=== PATIENT | male | born 1945 | race Caucasian/White ===

== ENCOUNTER 2019-12-29 16:25 | Inpatient (IN) ==
--- OUTSIDE RECORDS SUMMARY | 2019-12-29 16:27 | External Medical Summary | Continuity of Care Document ---
:1945 Author Name Harmeet Ott Address Unavailable Unavailable , Care Team Providers Name Role Phone Juliano Ott Unavailable [email or web address] PCP, UNKNOWN Unavailable Unavailable Problems Active medical history not documented Allergies and Adverse Reactions Allergy history not documented Medications Medications not documented Procedures Procedures not documented Immunizations Immunizations not documented Plan of Treatment Planned Observations Planned Goals not documented Results No Known Results Results not documented
[2019-12-29] MEDS ORDERED: SODIUM CHLORIDE 0.9% 1000ML 1,000 ML IV ONE (17:33)
[2019-12-29] MEDS ORDERED: ACETAMINOPHEN 1,000 MG/100 ML VIAL IV STA (17:34)
--- NOTE | 2019-12-29 17:53 | XRay Report ---
XR chest 1V portable CLINICAL HISTORY: weakness COMPARISON STUDY: 05/05/2018 FINDINGS: The cardiac and mediastinal contours remain stable. There is a left subclavian dual-chamber central venous pacemaker. There is no failure. There is no focal pulmonary consolidation. There are no pleural effusions. There is borderline elevation of the right hemidiaphragm.[ IMPRESSION: No active disease in the chest. ACT 112: Negative or not required by law. Electronically signed by: Bethel Cardoso M.D. 12/29/2019 5:51 PM
[2019-12-29 17:54] LABS: Basophils # (auto) 0.05 K/uL (0-0.2); Basophils % (auto) 0.4 %; Eosinophils # (auto) 0.19 K/uL (0-0.5); Eosinophils % (auto) 1.7 %; Hematocrit (blood only) 44.7 % (42-52); Hemoglobin 14.9 g/dL (14.0-18.0); Immature Granulocytes # (auto) 0.03 K/uL (0.00-0.02); Immature Granulocytes % (auto) 0.3 %; Lymphocytes # (auto) 2.21 K/uL (1.2-3.4); Lymphocytes % (auto) 19.8 %; Mean Corpuscular Hemoglobin 31.9 pg (25-34); Mean Corpuscular Hgb Conc 33.3 g/dL (32-36); Mean Corpuscular Volume 95.7 fL (80-100); Monocytes # (auto) 1.05 K/uL (0.11-0.59); Monocytes % (auto) 9.4 %; Neutrophils # (auto) 7.64 K/uL (1.4-6.5); Neutrophils % (auto) 68.4 %; Platelet Count 182 K/uL (130-400); RDW Coefficient of Variation 13.8 % (11.5-14.5); RDW Standard Deviation 47.8 fL (36.4-46.3); Red Blood Count 4.67 M/uL (4.7-6.1); White Blood Count 11.17 K/uL (4.8-10.8)
[2019-12-29 18:14] LABS: Albumin Level 3.2 gm/dl (3.4-5.0); Calcium 8.8 mg/dl (8.5-10.1); Creatinine Clr Calc Pharmacy 35.5 ml/min; Est GFR (African American) 30.1; Potassium 3.2 mmol/L (3.5-5.1)
[2019-12-29] MEDS ORDERED: POTASSIUM CHLORIDE 20 MEQ TABCR PO STA (18:15)
[2019-12-29 18:25] LABS: Albumin Globulin Ratio 0.7 (0.9-2); Bilirubin,Total 0.3 mg/dl (0.2-1); Creatine Kinase MB 2.4 ng/ml (0.5-3.6); Globulin 4.7 gm/dl (2.5-4.0); Thyroid Stimulating Hormone 1.84 uIu/ml (0.300-4.500); Total Protein 7.9 gm/dl (6.4-8.2); Troponin I 0.094 ng/ml (0-0.045)
--- NOTE | 2019-12-29 18:30 | CT Scan Report ---
CT SCAN OF THE ABDOMEN AND PELVIS WITHOUT CONTRAST CLINICAL HISTORY: Acute renal insufficiency WEAKNESS COMPARISON STUDY: Chest x-ray dated 12/29/2019 TECHNIQUE: CT scan of the abdomen and pelvis was performed from the lung bases to the proximal femurs . Images are reviewed in the axial, sagittal, and coronal planes. IV contrast was not administered fo r this examination. A dose lowering technique was utilized adhering to the principles of ALARA. CT DOSE: 1462.13 mGy.cm FINDINGS: Lower chest: There are coronary artery calcifications present. There is elevation of the right hemidi aphragm. There are no pleural effusions. There is linear atelectasis. Liver: The unenhanced liver is normal in size, contour, and attenuation. There is no intrahepatic bandar iary ductal dilatation. Gallbladder: Cholelithiasis. The common bile duct is mildly dilated measuring 8 mm Spleen: Normal in size and attenuation. Pancreas: There are extensive pancreatic calcifications, indicative of chronic pancreatitis. Adrenal glands: There is minor low density adrenal gland thickening Kidneys: There is no hydronephrosis. No renal, ureteral, or bladder calculi are visualized. Bowel: There are no transition zones indicate bowel obstruction. The appendix appears normal. There i s no acute diverticulitis. There is moderate stool within the colon. Peritoneum: There is no intraperitoneal free air or abdominal ascites. Vasculature: There is no evidence for abdominal aortic aneurysm. There is dense calcification at the level of the left renal artery origin. There is dense calcification within the proximal left superfic ial femoral artery. Adenopathy: None. Pelvic viscera: There is mild prostatomegaly Skeletal structures: No destructive osseous lesions are seen. IMPRESSION: 1. No evidence of bowel obstruction. No evidence of free air 2. Cholelithiasis. No evidence of significant gallbladder distention. Mildly dilated common bile duct 3. Extensive pancreatic calcifications consistent with chronic pancreatitis 4. Normal appendix. No evidence of acute diverticulitis 5. No evidence of hydronephrosis. No renal, ureteral, or bladder calculi identified 6. Mild prostatomegaly 7. No evidence of abdominal aortic aneurysm. Moderately extensive atherosclerotic vascular calcificat ion. ACT 112: Negative or not required by law. Electronically signed by: Bethel Cardoso M.D. 12/29/2019 6:29 PM
--- NOTE | 2019-12-29 20:19 | History & Physical Report ---
Date of Service December 29, 2019 Assessment & Plan (1) NSTEMI, initial episode of care: Troponin elevated at 0.094, with no acute EKG findings/hypertension- The patient will be admitted to telemetry for serial cardiac enzymes, serial EKG's, cardiac rhythm monitoring and a 2-D echocardiogram with Dopplers. Likely type II IL. Laboratories were for performed in the ED tonight based on report of abnormal laboratories from the [facility]. Patient has no symptoms of chest pain or shortness of breath, however, his activity level severely limited due to lower extremity weakness and ambulatory dysfunction, that he reports is associated with Agent Anderson poisoning. Consult cardiology. Present on Admission?: Yes (2) Peripheral neuropathy: (3) Hypothyroidism (acquired): Continue levothyroxine sodium 88 mcg p.o. daily Present on Admission?: Yes (4) Hyperlipidemia LDL goal <70: Continue atorvastatin 40 mg p.o. in the evening. Check a fasting lipid panel in the a.m. Present on Admission?: Yes (5) Insulin-requiring or dependent type II diabetes mellitus: Continue Lantus insulin 30 units subcu at bedtime. Patient is also on cinnamon bark and cranberry in the outpatient setting. Hold glipizide 5 mg p.o. twice daily. Placed on Accu-Cheks before meals and at bedtime with NovoLog coverage per scale. Check hemoglobin A1c in the a.m. Present on Admission?: Yes (6) Hypertension: See above Present on Admission?: Yes (7) Pancreatic insufficiency: Chronic pancreatitis/pancreatic insufficiency- Continue pancreatic enzymes Creon, 1 capsule p.o. [address] times daily with meals. CT of abdomen pelvis notes calcifications suggestive of chronic pancreatitis, with unknown etiology. Present on Admission?: Yes (8) Chronic pancreatitis: See above Present on Admission?: Yes (9) Morbid obesity: Noted. Likely multifactorial being caused by his medical problems and further causing his medical problems. Present on Admission?: Yes (10) Agent Anderson [facility]: [facility] extremity weakness, neuropathy and ambulatory dysfunction are reportedly attributed. Present on Admission?: Yes (11) Acute kidney injury superimposed on chronic kidney disease: Creatinine 2.40 upon admission, with range 1.74-2.18. For now, hold HCTZ and rehydrate gently with normal saline. Repeat laboratories in a.m. Present on Admission?: Yes (12) Hypokalemia due to excessive renal loss of potassium: Patient given Klor-Con 40 mEq p.o. in the ED. We will hold HCTZ. Present on Admission?: Yes (13) History of permanent cardiac pacemaker placement: EKG shows AV dual pacing. Present on Admission?: Yes (14) GERD (gastroesophageal reflux disease): Continue pantoprazole 40 mg p.o. daily Present on Admission?: Yes History of Present Illness Chief Complaint: The patient is referred to the emergency department by his physician at the [facility], due to the presence of abnormal routine laboratories that were performed earlier in the day. Primary Care Provider: NO PCP The patient is a 74-year-old male with a past medical history including agent orange, hyperlipidemia, peripheral neuropathy, diabetes mellitus, hypertension, hypothyroidism, pancreatic insufficiency, GERD and ambulatory dysfunction due to lower extremity weakness. Earlier in the day, he had gone to the [facility] in [place] to have routine laboratories performed in anticipation of his routine visit next week, but received a phone call at home after labs had been processed at the [facility], that his laboratories were abnormal and he was to report immediately to the emergency department. He received no specific word otherwise as to the exact nature of the abnormality, and we do not have access to the information at this time and night. He has no specific complaints otherwise other than that he felt a bit lightheaded and dizzy upon arrival to the emergency department, as he is diabetic and had not not eaten all day. Allergies Allergy/AdvReac Type Severity Reaction Status Date / Time ASPIRIN (IN DOSES LARGER AdvReac Intermediate N/V Uncoded 12/29/19 18:35 THAN 81MG) Home Medications Home Medications Medication Instructions Recorded Confirmed Type aspirin 81 mg PO QAM #0 05/22/15 12/29/19 History gabapentin 300 mg PO BID #0 05/22/15 12/29/19 History grape seed extract 100 mg PO QPM #0 05/22/15 12/29/19 History levothyroxine 88 mcg PO QAM #0 05/22/15 12/29/19 History wlojnt-yyyrkejz-nmvonqt [Creon] 1 cap PO TIDM #0 05/22/15 12/29/19 History multivitamin with minerals [Men's 1 tab PO DAILY #0 05/22/15 12/29/19 History One Daily] pantoprazole 40 mg PO QAM #0 05/22/15 12/29/19 History atorvastatin [Lipitor] 40 mg PO HS #0 tab 05/05/18 12/29/19 History cinnamon bark [Cinnamon] 1,000 mg PO QPM #0 05/05/18 12/29/19 History cranberry 4,200 mg PO HS #0 05/05/18 12/29/19 History glucosamine HCl 1,500 mg PO BID #0 05/05/18 12/29/19 History hydrochlorothiazide 25 mg PO QAM #0 tab 05/05/18 12/29/19 History insulin glargine [Lantus Solostar 30 unit SUBCUT HS #0 pen 05/05/18 12/29/19 History U-100 Insulin] magnesium oxide 500 mg PO QAM #0 05/05/18 12/29/19 History glipizide 5 mg PO BID 12/29/19 12/29/19 History metoprolol tartrate 25 mg PO BID 12/29/19 12/29/19 History Past Med/Surg History Medical History History of pacemaker Surgical History History of permanent cardiac pacemaker placement Family History Other Family history non-contributory Social History Preferred Language: Indian Communication Ability: Effective Community Organizer Required: No Beliefs That Will Affect Care: None Current Living Situation: Spouse Feels Safe at Home: Yes Smoking Status: Current every day smoker Tobacco Type: cigarettes ; Cigarettes Per Day: 20 ; Do You Dip or Chew Tobacco: No ; Hx Alcohol Use: No Hx Substance Use: No Review of Systems Review of Systems: The patient denies chest pain, palpitations, shortness of breath, dyspnea on exertion, cough, sore throat, fevers, chills, sweats, nausea, vomiting, diarrhea , constipation, abdominal pain, pelvic pain, blood in urine or stool, dysuria, urinary frequency or urgency, lightheadedness, dizziness, headache, memory loss, loss of consciousness, rash, abnormal bruising or bleeding, focal or generalized weakness, numbness or tingling in arms, back or neck pain, or night sweats. The review of systems is otherwise negative other than for that already noted above, and at least 10 systems have been reviewed. Physical Exam Physical Exam: The patient is awake, alert and oriented 3, well developed and well nourished, normocephalic and atraumatic, lying in bed and in no acute distress. HEENT--PERRL, EOMI, mucous membranes and oropharynx dry. Neck--supple. No JVD. No bruits. Thyroid normal, trachea midline, no adenopathy. Heart--normal S1 and S2. No murmurs, rubs or gallops. Lungs--clear bilaterally, no respiratory distress, no accessory muscle use. Abdomen--normal bowel sounds and soft. Nontender. Nondistended. Morbidly obese. Extremities--no cyanosis or clubbing. No edema. There are good distal pulses b/l. Dermatologic--normal skin turgor, normal color, no abnormal lymph nodes, no rash. Neurologic--cranial nerves II through XII grossly intact. Rheumatologic--normal range of motion. Psychiatric--normal affect. Results & Data Vital Signs (Past 12 Hours) Vital Signs Temp Pulse Pulse Resp BP Pulse Ox 12/29/19 18:32 67 17 96 12/29/19 17:32 97 12/29/19 16:28 98.2 F 61 20 100/65 96 Laboratory Results Laboratory Results WBC 11.17 K/uL (4.8-10.8) H 12/29/19 17:20 RBC 4.67 M/uL (4.7-6.1) L 12/29/19 17:20 Hgb 14.9 g/dL (14.0-18.0) 12/29/19 17:20 Hct 44.7 % (42-52) 12/29/19 17:20 MCV 95.7 fL (80-100) 12/29/19 17:20 MCH 31.9 pg (25-34) 12/29/19:20 MCHC 33.3 g/dL (32-36) 12/29/19 17:20 RDW Std Deviation 47.8 fL (36.4-46.3) H 12/29/19 17:20 RDW Coeff of Hilda 13.8 % (11.5-14.5) 12/29/19 17:20 Plt Count 182 K/uL (130-400) 12/29/19 17:20 MPV 11.0 fL (7.4-10.4) H 12/29/19 17:20 Immature Gran % (Auto) 0.3 % 12/29/19 17:20 Neut % (Auto) 68.4 % 12/29/19 17:20 Lymph % (Auto) 19.8 % 12/29/19 17:20 [place] % (Auto) 9.4 % 12/29/19 17:20 Eos % (Auto) 1.7 % 12/29/19 17:20 Baso % (Auto) 0.4 % 12/29/19 17:20 Immature Gran # (Auto) 0.03 K/uL (0.00-0.02) H 12/29/19 17:20 Neut # (Auto) 7.64 K/uL (1.4-6.5) H 12/29/19 17:20 Lymph # (Auto) 2.21 K/uL (1.2-3.4) 12/29/19 17:20 Henderson # (Auto) 1.05 K/uL (0.11-0.59) H 12/29/19 17:20 Eos # (Auto) 0.19 K/uL (0-0.5) 12/29/19 17:20 Baso # (Auto) 0.05 K/uL (0-0.2) 12/29/19 17:20 Sodium 136 mmol/L (136-145) 12/29/19 17:20 Potassium 3.2 mmol/L (3.5-5.1) L 12/29/19 17:20 Chloride 101 mmol/L (98-107) 12/29/19 17:20 Carbon Dioxide 26 mmol/L (21-32) 12/29/19 17:20 Anion Gap 8.0 (3-11) 12/29/19 17:20 BUN 53 mg/dl (7-18) H 12/29/19 17:20 Creatinine 2.40 mg/dl (0.6-1.4) H 12/29/19 17:20 Est Cr Clr Drug Dosing 35.5 ml/min 12/29/19 17:20 Est GFR ( Amer) 30.1 12/29/19 17:20 Est GFR (Non-Af Amer) 26.0 12/29/19 17:20 BUN/Creatinine Ratio 22.0 (10-20) H 12/29/19 17:20 Glucose 253 mg/dl (70-99) H 12/29/19 17:20 POC Glucose 236 mg/dl (70-99) H 12/30/19 02:03 Calcium 8.8 mg/dl (8.5-10.1) 12/29/19 17:20 Total Bilirubin 0.3 mg/dl (0.2-1) 12/29/19 17:20 AST 26 U/L (15-37) 12/29/19 17:20 ALT 24 U/L (12-78) 12/29/19 17:20 Alkaline Phosphatase 125 U/L (45-117) H 12/29/19 17:20 Total Creatine Kinase 100 U/L (39-308) 12/29/19 17:20 CK-MB (CK-2) 2.4 ng/ml (0.5-3.6) 12/29/19 17:20 CK/CKMB % Calc 2.4 (0-3.0) 12/29/19 17:20 Troponin I 0.092 ng/ml (0-0.045) H* 12/29/19 21:52 Total Protein 7.9 gm/dl (6.4-8.2) 12/29/19 17:20 Albumin 3.2 gm/dl (3.4-5.0) L 12/29/19 17:20 Globulin 4.7 gm/dl (2.5-4.0) H 12/29/19 17:20 Albumin/Globulin Ratio 0.7 (0.9-2) L 12/29/19 17:20 TSH 1.840 uIu/ml (0.300-4.500) 12/29/19 17:20 Specimen Hemolysis 12/29/19 17:20 Urine Color Yellow 12/30/19 00:01 Urine Appearance Clear (Clear) 12/30/19 00:01 Urine pH 5.5 (4.5-7.5) 12/30/19 00:01 Ur Specific [place] 1.014 (1.000-1.030) 12/30/19 00:01 Urine Protein Trace (Negative) H 12/30/19 00:01 Urine Glucose (UA) 1+ (Negative) H 12/30/19 00:01 Urine Ketones Negative (Negative) 12/30/19 00:01 Urine Blood Trace (Negative) H 12/30/19 00:01 Urine Nitrite Negative (Negative) 12/30/19 00:01 Urine Bilirubin Negative (Negative) 12/30/19 00:01 Urine Urobilinogen Negative (Negative) 12/30/19 00:01 Ur Leukocyte Esterase Negative (Negative) 12/30/19 00:01 Urine WBC (Auto) 1-5 /hpf (0-5) 12/30/19 00:01 Urine RBC (Auto) 0-4 /hpf (0-4) 12/30/19 00:01 U Hyaline Cast (Auto) 1-5 /lpf (0-5) 12/30/19 00:01 U Epithel Cells (Auto) 20-30 /lpf (0-5) H 12/30/19 00:01 Urine Bacteria (Auto) Negative (Negative) 12/30/19 00:01 Diagnostic Findings [place], [place] [phone] XRay Report Patient: ALFREDO RODAS DAdmit Date: 12/29/19 MR#: [id number]: [address] Acct ID:[id number]: Date: 1945City Zip: [place] [address] Age: 74Location: ED Sex: M Room/Bed: Att Phy:Diagnosis: ABNORMAL LABS [facility] Phy: PCP,NOService Date: 12/29/19 Fam Phy:Interpreting Phy: Bethel Cardoso MD Admit Phy: Ordering Phy: Omkar Estrada MD cc: ~ XR chest 1V portable CLINICAL HISTORY: weakness COMPARISON STUDY: 05/05/2018 FINDINGS: The cardiac and mediastinal contours remain stable. There is a left subclavian dual-chamber central venous pacemaker. There is no failure. There is no focal pulmonary consolidation. There are no pleural effusions. There is borderline elevation of the right hemidiaphragm.[ IMPRESSION: No active disease in the chest. ACT 112: Negative or not required by law. Electronically signed by: Bethel Cardoso M.D. 12/29/2019 5:51 PM Dictated: 12/29/191750 Transcribed: 12/29/191750 [place], [place] [phone] CT Scan Report Patient: ALFREDO RODAS Date: 12/29/19 MR#: [id number]: [id number] Acct ID:[id number]: Date: 1945City Zip: [place] [address] Age: 74Location: ED Sex: M Room/Bed: Att Phy:Diagnosis: ABNORMAL LABS - [facility] Phy: PCP,NOService Date: 12/29/19 Fam Phy:Interpreting Phy: Bethel Cardoso MD Admit Phy: Ordering Phy: Omkar Estrada MD cc: ~ CT SCAN OF THE ABDOMEN AND PELVIS WITHOUT CONTRAST CLINICAL HISTORY: Acute renal insufficiency WEAKNESS COMPARISON STUDY: Chest x-ray dated 12/29/2019 TECHNIQUE: CT scan of the abdomen and pelvis was performed from the lung bases to the proximal femurs. Images are reviewed in the axial, sagittal, and coronal planes. IV contrast was not administered for this examination. A dose lowering technique was utilized adhering to the principles of ALARA. CT DOSE: 1462.13 mGy.cm FINDINGS: Lower chest: There are coronary artery calcifications present. There is elevation of the right hemidiaphragm. There are no pleural effusions. There is linear atelectasis. Liver: The unenhanced liver is normal in size, contour, and attenuation. There is no intrahepatic biliary ductal dilatation. Gallbladder: Cholelithiasis. The common bile duct is mildly dilated measuring 8 mm Spleen: Normal in size and attenuation. Pancreas: There are extensive pancreatic calcifications, indicative of chronic pancreatitis. Adrenal glands: There is minor low density adrenal gland thickening Kidneys: There is no hydronephrosis. No renal, ureteral, or bladder calculi are visualized. Bowel: There are no transition zones indicate bowel obstruction. The appendix appears normal. There is no acute diverticulitis. There is moderate stool within the colon. Peritoneum: There is no intraperitoneal free air or abdominal ascites. Vasculature: There is no evidence for abdominal aortic aneurysm. There is dense calcification at the level of the left renal artery origin. There is dense calcification within the proximal left superficial femoral artery. Adenopathy: None. Pelvic viscera: There is mild prostatomegaly Skeletal structures: No destructive osseous lesions are seen. IMPRESSION: 1. No evidence of bowel obstruction. No evidence of free air 2. Cholelithiasis. No evidence of significant gallbladder distention. Mildly dilated common bile duct 3. Extensive pancreatic calcifications consistent with chronic pancreatitis 4. Normal appendix. No evidence of acute diverticulitis 5. No evidence of hydronephrosis. No renal, ureteral, or bladder calculi identi fied 6. Mild prostatomegaly 7. No evidence of abdominal aortic aneurysm. Moderately extensive atherosclerotic vascular calcification. ACT 112: Negative or not required by law. Electronically signed by: Bethel Cardoso M.D. 12/29/2019 6:29 PM Dictated: 12/29/191822 Transcribed: 12/29/191822 Code Status & VTE Plan Code Status Full code VTE Prophylaxis Plan VTE Prophylaxis will be ordered: Yes PG Care Time/CCT Total # of Minutes Spent Total Time Spent with Patient: Total time spent is greater than 50% in coordination of care (as documented) at patient's floor/unit and/or counseling patient: Coding Level of Care Code 96614 Initial Inpt Care Lvl 3 Diagnoses NSTEMI, initial episode of care I21.4 Peripheral neuropathy G62.9 Hypothyroidism (acquired) E03.9 Hyperlipidemia LDL goal <70 E78.5 Insulin-requiring or dependent type II diabetes mellitus E11.9; Z79.4 Hypertension I10 Pancreatic insufficiency K86.89 Chronic pancreatitis K86.1 Morbid obesity E66.01 Agent Anderson poisoning T60.3X1A Acute kidney injury superimposed on chronic kidney disease N17.9; N18.9 Hypokalemia due to excessive renal loss of potassium E87.6 History of permanent cardiac pacemaker placement Z95.0 GERD (gastroesophageal reflux disease) K21.9
[2019-12-29] MEDS ORDERED: GLUCOSE 10 TABS/TUBE PO PRN (21:44)
[2019-12-29] MEDS ORDERED: ATORVASTATIN 40 MG TAB PO SCH (21:44)
[2019-12-29] MEDS ORDERED: CRANBERRY 4200 MG PO SCH (21:44)
[2019-12-29] MEDS ORDERED: MAGNESIUM HYDROXIDE SUSP 30 ML UDC PO PRN (21:44)
[2019-12-29] MEDS ORDERED: NITROGLYCERIN SL 0.4 MG/TAB TAB SL PRN (21:44)
[2019-12-29] MEDS ORDERED: ALUMINUM/MAGNESIUM SUSP 30 ML UDC PO PRN (21:44)
[2019-12-29] MEDS ORDERED: DEXTROSE 50% 50 ML SYRINGE IV PRN (21:44)
[2019-12-29] MEDS ORDERED: GLUCOSE 40% GEL 15 GM TUBE PO PRN (21:44)
[2019-12-29] MEDS ORDERED: GRAPE SEED EXTRACT PO SCH (21:44)
[2019-12-29] MEDS ORDERED: INSULIN GLARGINE SOLOSTAR 100 UNITS/ML 3 ML PEN SQ SCH (21:44)
[2019-12-29] MEDS ORDERED: ACETAMINOPHEN 325 MG TAB PO PRN (21:44)
[2019-12-29] MEDS ORDERED: GLUCAGON FOR INJ 1 MG VIAL SQ PRN (21:44)
[2019-12-29] MEDS ORDERED: NON-FORMULARY MEDICATION (Cinnamon Bark [Cinnamon] 1,000 MG) PO SCH (21:44)
[2019-12-29] MEDS ORDERED: CARBOHYDRATES FOR HYPOGLYCEMIA PO PRN (21:44)
[2019-12-29] MEDS ORDERED: ONDANSETRON INJ 2 MG/ML 2 ML VIAL IV PRN (21:44)
[2019-12-29] MEDS ORDERED: PHARMACY GLYCEMIC MGMT CONSULT PRN (22:31)
--- NOTE | 2019-12-29 22:56 | Emergency Department Note ---
Entered by Verenice Hawthorne acting as a scribe for History of Present Illness General Chief complaint: Abnormal Labs/Diagnostic Testing Stated complaint: ABNORMAL [facility]S [facility] Time Seen by Provider: 12/29/19 17:08 Source: patient History of Present Illness Onset (ago): week(s) 1 Location: upper extremity and lower extremity Maximum Pain Intensity: 2 Quality: + other (abnormal labs) Associated symptoms: + headaches (intermittent) and + other (Positive dizziness ) The patient is a 74 year old male who presents to the ED for abnormal labs. He has a hx of Type II diabetes. [facility] and was referred to the ED for a further workup. He notes his labs were "out of whack" and there was a concern about his kidney function. He reports he has had an intermittent headache and dizziness for the past week. Home Medications Home Medications Medication Instructions Recorded Confirmed Type Creon 1 cap PO TIDM #0 05/22/15 12/29/19 History aspirin 81 mg PO QAM #0 05/22/15 12/29/19 History gabapentin 300 mg PO BID #0 05/22/15 12/29/19 History grape seed extract 100 mg PO QPM #0 05/22/15 12/29/19 History levothyroxine 88 mcg PO QAM #0 05/22/15 12/29/19 History multivitamin with minerals [Men's 1 tab PO DAILY #0 05/22/15 12/29/19 History One Daily] pantoprazole 40 mg PO QAM #0 05/22/15 12/29/19 History Lantus Solostar U-100 Insulin 30 unit SUBCUT HS #0 pen 05/05/18 12/29/19 History atorvastatin [Lipitor] 40 mg PO HS #0 tab 05/05/18 12/29/19 History cinnamon bark [Cinnamon] 1,000 mg PO QPM #0 05/05/18 12/29/19 History cranberry 4,200 mg PO HS #0 05/05/18 12/29/19 History glucosamine HCl 1,500 mg PO BID #0 05/05/18 12/29/19 History hydrochlorothiazide 25 mg PO QAM #0 tab 05/05/18 12/29/19 History magnesium oxide 500 mg PO QAM #0 05/05/18 12/29/19 History glipizide 5 mg PO BID 12/29/19 12/29/19 History metoprolol tartrate 25 mg PO BID 12/29/19 12/29/19 History Allergies Allergy/AdvReac Type Severity Reaction Status Date / Time ASPIRIN (IN DOSES LARGER AdvReac Intermediate N/V Uncoded 12/29/19 18:35 THAN 81MG) Past Med/Surg History Medical History (Updated 12/30/19 @ 18:02 by Omkar Estrada MD) Agent [place] poisoning Chronic pancreatitis GERD (gastroesophageal reflux disease) History of pacemaker Hyperlipidemia LDL goal <70 Hypertension Hypothyroidism (acquired) Insulin-requiring or dependent type II diabetes mellitus Morbid obesity Pancreatic insufficiency Peripheral neuropathy Surgical History (Updated 12/30/19 @ 03:28 by Jhon Anton MD) History of permanent cardiac pacemaker placement Family History Other Family history non-contributory Social History Preferred Language: Romansh Communication Ability: Effective Flatbed Press 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 and A total of 10 systems reviewed and were otherwise negative Physical Exam Vital Signs Vital Signs - 24 hr 12/29/19 18:32 12/29/19 20:00 Pulse Rate [Finger] 67 60 Respiratory Rate 17 16 Blood Pressure [Right Arm] 173/78 H Blood Pressure Mean [Right Arm] 109 Pulse Oximetry 96 97 Oxygen Delivery Method Room Air Room Air GENERAL: Awake, alert, well-appearing, in no acute distress HENT: Normocephalic, atraumatic. Oropharynx unremarkable. EYES: Normal conjunctiva. Sclera non-icteric. NECK: Supple. No nuchal rigidity. FROM. No JVD. RESPIRATORY: Clear to auscultation. CARDIAC: Regular rate, normal rhythm. Extremities warm and well perfused. Pulses equal. ABDOMEN: Soft, non-distended. No tenderness to palpation. No rebound or guarding. No masses. RECTAL: Deferred. MUSCULOSKELETAL: Chest examination reveals no tenderness. The back is symmetrical on inspection without obvious abnormality. There is no CVA tenderness to palpation. No joint edema. LOWER EXTREMITIES: Calves are equal size bilaterally and non-tender. No edema. No discoloration. NEURO: Normal sensorium. No sensory or motor deficits noted. SKIN: No rash or jaundice noted. Course Course 173: Past medical records reviewed. The patient was evaluated in room A3. A complete history and physical exam was performed. 193: Discussed the patient's case with Dr. Anton, [facility] Hospitalist. The patient will be evaluated for further management by him. Administered Medications Lipase/Protease/Amylase (Pancreaze (Lipase 10,500u)) 2 cap PO TIDM LAW Stop: 01/29/20 07:59 Last Admin: 12/30/19 12:02 Dose: 2 cap Documented by: [id number] Admin: 12/30/19 08:24 Dose: 2 cap Documented by: [id number] Aspirin (Ecotrin Ectab) 81 mg PO QAM LAW Stop: 01/29/20 08:59 Last Admin: 12/30/19 08:23 Dose: 81 mg Documented by: [id number] Atorvastatin Calcium (Lipitor) 40 mg PO HS LAW Stop: 01/28/20 21:43 Last Admin: 12/30/19 00:04 Dose: 40 mg Documented by: [id number] Gabapentin (Neurontin) 300 mg PO BID LAW Stop: 01/28/20 21:43 Last Admin: 12/30/19 08:23 Dose: 300 mg Documented by: [id number] Admin: 12/29/19 23:30 Dose: 300 mg Documented by: [id number] Glucosamine Sulfate (Glucosamine Sulfate) 1,500 mg PO BID LAW Stop: 01/28/20 21:43 Last Admin: 12/30/19 08:23 Dose: 1,500 mg Documented by: [id number] Admin: 12/29/19 23:30 Dose: 1,500 mg Documented by: [id number] Hydrochlorothiazide (Hctz) 25 mg PO QAM LAW Stop: 01/29/20 08:59 Last Admin: 12/30/19 08:24 Dose: 25 mg Documented by: [id number] Sodium Chloride (Nss 1000ml) 1,000 mls @ 150 mls/hr IV .Q6H40M LAW Stop: 01/28/20 20:29 Last Admin: 12/30/19 11:23 Dose: 150 mls/hr Documented by: [id number] Infusion: 12/30/19 11:23 Dose: 150 mls/hr Documented by: [id number] Infusion: 12/30/19 09:45 Dose: 150 mls/hr Documented by: [id number] Admin: 12/30/19 00:04 Dose: 60 mls/hr Documented by: [id number] Insulin Aspart (Novolog Flexpen) 0 units SC ACHS LAW Stop: 01/28/20 21:43 Last Admin: 12/30/19 12:01 Dose: 6 units Documented by: [id number] Cosigned by: [id number] Admin: 12/30/19 08:21 Dose: 3 units Documented by: [id number] Cosigned by: [id number] Admin: 12/29/19 23:39 Dose: 7 units Documented by: [id number] Cosigned by: [id number] Insulin Glargine (Lantus Solostar Pen) 30 units SQ HS LAW Stop: 01/28/20 21:43 Last Admin: 12/29/19 23:39 Dose: 30 units Documented by: [id number] Cosigned by: [id number] Levothyroxine Sodium (Synthroid) 88 mcg PO DAILYBB [facility] Stop: 01/29/20 06:29 Last Admin: 12/30/19 06:22 Dose: 88 mcg Documented by: [id number] Magnesium Oxide (Mag-Ox) 400 mg PO QAM LAW Stop: 01/29/20 08:59 Last Admin: 12/30/19 08:22 Dose: 400 mg Documented by: [id number] Metoprolol Tartrate (Lopressor) 25 mg PO BID LAW Stop: 01/28/20 21:43 Last Admin: 12/30/19 08:23 Dose: 25 mg Documented by: [id number] Admin: 12/30/19 00:04 Dose: 25 mg Documented by: [id number] Multivitamins/Minerals (Multivitamin W/ Minerals Tab) 1 tab PO DAILY LAW Stop: 01/29/20 08:59 Last Admin: 12/30/19 08:24 Dose: 1 tab Documented by: [id number] Pantoprazole Sodium (Protonix) 40 mg PO QAM LAW Stop: 01/29/20 08:59 Last Admin: 12/30/19 08:24 Dose: 40 mg Documented by: [id number] Discontinued Medications Sodium [place] (Nss 1000ml) 1,000 mls @ 999 mls/hr IV .Q1H1M ONE Stop: 12/29/19 18:33 Last Infusion: 12/29/19 18:56 Dose: 0 mls/hr Documented by: [id number] Admin: 12/29/19 17:46 Dose: 999 mls/hr Documented by: [id number] Acetaminophen (Ofirmev) 1,000 mg in 100 mls @ 400 mls/hr IV NOW STA Stop: 12/29/19 17:48 Last Infusion: 12/29/19 18:09 Dose: 0 mls/hr Documented by: [id number] Admin: 12/29/19 17:45 Dose: 400 mls/hr Documented by: [id number] Potassium [place] (K Bebeto / Wtr) 10 meq in 100 mls @ 100 mls/hr IV Q1H LAW Stop: 12/30/19 14:29 Last Infusion: 12/30/19 17:11 Dose: 0 mls/hr Documented by: [id number] Admin: 12/30/19 14:52 Dose: 100 mls/hr Documented by: [id number] Infusion: 12/30/19 14:48 Dose: 100 mls/hr Documented by: [id number] Admin: 12/30/19 13:48 Dose: 100 mls/hr Documented by: [id number] Infusion: 12/30/19 13:48 Dose: 100 mls/hr Documented by: [id number] Admin: 12/30/19 12:48 Dose: 100 mls/hr Documented by: [id number] Infusion: 12/30/19 12:19 Dose: 100 mls/hr Documented by: [id number] Admin: 12/30/19 11:19 Dose: 100 mls/hr Documented by: [id number] Insulin Aspart (Novolog Flexpen) 0 units SC TODAY@0200 LAW Stop: 12/30/19 02:01 Last Admin: 12/30/19 02:30 Dose: 4 units Documented by: [id number] Cosigned by: [id number] Potassium [place] (Klor-Con M20) 40 meq PO NOW STA Stop: 12/29/19 18:16 Last Admin: 12/29/19 18:35 Dose: 40 meq Documented by: [id number] Medical Decision Making Differential Diagnosis Differential diagnosis: Etiologies such as metabolic, infection, hypo/hyperglycemia, electrolyte abnor malities, cardiac sources, intracerebral event, toxicologic, neurologic, as well as others were entertained. Medical Records Attestation: I reviewed the patient's medical records. Home Medications Current Medication List: was personally reviewed by me Laboratory Data Attestation: I reviewed the patient's lab results. Result diagrams: 12/30/19 07:22 12/30/19 07:22 Lab Results 12/29/19 12/29/19 Range/Units 17:20 17:20 WBC 11.17 H (4.8-10.8) K/uL RBC 4.67 L (4.7-6.1) M/uL Hgb 14.9 (14.0-18.0) g/dL Hct 44.7 (42-52) % MCV 95.7 (80-100) fL MCH 31.9 (25-34) pg MCHC 33.3 (32-36) g/dL RDW Std Deviation 47.8 H (36.4-46.3) fL RDW Coeff of Hilda 13.8 (11.5-14.5) % Plt Count 182 (130-400) K/uL MPV 11.0 H (7.4-10.4) fL Immature Gran % (Auto) 0.3 % Neut % (Auto) 68.4 % Lymph % (Auto) 19.8 % Zavala % (Auto) 9.4 % Eos % (Auto) 1.7 % Baso % (Auto) 0.4 % Immature Gran # (Auto) 0.03 H (0.00-0.02) K/uL Neut # (Auto) 7.64 H (1.4-6.5) K/uL Lymph # (Auto) 2.21 (1.2-3.4) K/uL Z[place]ala # (Auto) 1.05 H (0.11-0.59) K/uL Eos # (Auto) 0.19 (0-0.5) K/uL Baso # (Auto) 0.05 (0-0.2) K/uL Sodium 136 (136-145) mmol/L Potassium 3.2 L (3.5-5.1) mmol/L [place] 101 (98-107) mmol/L Carbon Dioxide 26 (21-32) mmol/L Anion Gap 8.0 (3-11) BUN 53 H (7-18) mg/dl Creatinine 2.40 H (0.6-1.4) mg/dl Est Cr Clr Drug Dosing 35.5 ml/min Est GFR ( Amer) 30.1 Est GFR (Non-Af Amer) 26.0 BUN/Creatinine Ratio 22.0 H (10-20) Glucose 253 H (70-99) mg/dl Calcium 8.8 (8.5-10.1) mg/dl Total Bilirubin 0.3 (0.2-1) mg/dl AST 26 (15-37) U/L ALT 24 (12-78) U/L Alkaline Phosphatase 125 H (45-117) U/L Total Creatine Kinase 100 (39-308) U/L CK-MB (CK-2) 2.4 (0.5-3.6) ng/ml CK/CKMB % Calc 2.4 (0-3.0) Troponin I 0.094 H* (0-0.045) ng/ml Total Protein 7.9 (6.4-8.2) gm/dl Albumin 3.2 L (3.4-5.0) gm/dl Globulin 4.7 H (2.5-4.0) gm/dl Albumin/Globulin Ratio 0.7 L (0.9-2) TSH 1.840 (0.300-4.500) uIu/ml Specimen Hemolysis Imaging Data Radiologist's Impression: Radiology results as stated below per my review and the radiologist's interpretation: XR chest 1V portable CLINICAL HISTORY: weakness COMPARISON STUDY: 05/05/2018 FINDINGS: The cardiac and mediastinal contours remain stable. There is a left subclavian dual-chamber central venous pacemaker. There is no failure. There is no focal pulmonary consolidation. There are no pleural effusions. There is borderline elevation of the right hemidiaphragm.[ IMPRESSION: No active disease in the chest. ACT 112: Negative or not required by law. Electronically signed by: Bethel Cardoso M.D. 12/29/2019 5:[address] SCAN OF THE ABDOMEN AND PELVIS WITHOUT CONTRAST CLINICAL HISTORY: Acute renal insufficiency WEAKNESS COMPARISON STUDY: Chest x-ray dated 12/29/2019 TECHNIQUE: CT scan of the abdomen and pelvis was performed from the lung bases to the proximal femurs. Images are reviewed in the axial, sagittal, and coronal planes. IV contrast was not administered for this examination. A dose lowering technique was utilized adhering to the principles of ALARA. CT DOSE: 1462.13 mGy.cm FINDINGS: Lower chest: There are coronary artery calcifications present. There is elevation of the right hemidiaphragm. There are no pleural effusions. There is linear atelectasis. Liver: The unenhanced liver is normal in size, contour, and attenuation. There is no intrahepatic biliary ductal dilatation. Gallbladder: Cholelithiasis. The common bile duct is mildly dilated measuring 8 mm Spleen: Normal in size and attenuation. Pancreas: There are extensive pancreatic calcifications, indicative of chronic pancreatitis. Adrenal glands: There is minor low density adrenal gland thickening Kidneys: There is no hydronephrosis. No renal, ureteral, or bladder calculi are visualized. Bowel: There are no transition zones indicate bowel obstruction. The appendix appears normal. There is no acute diverticulitis. There is moderate stool within the colon. Peritoneum: There is no intraperitoneal free air or abdominal ascites. Vasculature: There is no evidence for abdominal aortic aneurysm. There is dense calcification at the level of the left renal artery origin. There is dense calcification within the proximal left superficial femoral artery. Adenopathy: None. Pelvic viscera: There is mild prostatomegaly Skeletal structures: No destructive osseous lesions are seen. IMPRESSION: 1. No evidence of bowel obstruction. No evidence of free air 2. Cholelithiasis. No evidence of significant gallbladder distention. Mildly dilated common bile duct 3. Extensive pancreatic calcifications consistent with chronic pancreatitis 4. Normal appendix. No evidence of acute diverticulitis 5. No evidence of hydronephrosis. No renal, ureteral, or bladder calculi i dentified 6. Mild prostatomegaly 7. No evidence of abdominal aortic aneurysm. Moderately extensive a therosclerotic vascular calcification. ACT 112: Negative or not required by law. Electronically signed by: Betehl Cardoso M.D. 12/29/2019 6:29 PM ECG Data Attestation: I personally reviewed and interpreted this ECG as follows: Indication: + other (abnormal labs) Rate (beats per minute): 60 Rhythm: + other (AV paced) ECG ST segments: no ST depression and no ST elevation ECG Findings: + Other (QT-c 518) Comparison ECG Date: from (05/05/18) Change: no significant change Blood Pressure Blood Pressure Findings: Normal blood pressure Blood Pressure Disposition: further management by hospitalist KIRBY Narrative Cardiac monitoring: An order was placed for continuous cardiac monitoring. The monitor shows a rate of 69 with NS rhythm. This is a 74-year-old male who presents emergency department after being sent in by the [facility] over unknown lab work. The patient does have an elevation in his troponin. He does have chronic kidney disease. His potassium was repleted here in the emergency department. EKG does not show any acute evidence of infarction. I did discuss the case with the hospitalist service who did agree to admit the patient. Patient was in agreement with the treatment plan. Impression & Plan Acute kidney injury superimposed on chronic kidney disease, Hypokalemia due to excessive renal loss of potassium, Elevated troponin Discharge Plan Visit Data *Final* Discharge Date/Time: 12/29/19 20:40 Chief Complaint: Abnormal Labs/Diagnostic Testing Stated Complaint: ABNORMAL LABS - SENT BY [facility] ED Provider: Omkar Estrada Discharge Problem: Acute kidney injury superimposed on chronic kidney disease, Hypokalemia due to excessive renal loss of potassium, Elevated troponin Patient Disposition: Admitted As Inpatient Discharge Instructions Interventions: ED Discharge Assessment Last Done: 12/29/19 20:40 The abhinavibe's documentation has been prepared under my direction and personally reviewed by me in its entirety. I confirm that the note above accurately reflects all work, treatment, procedures, and medical decision making performed by me.
[2019-12-29] MEDS: GLUCOSAMINE SULFATE 500 MG CAP PO SCH (23:30)
[2019-12-29] MEDS: GABAPENTIN 300 MG CAP PO SCH (23:30)
[2019-12-29] MEDS: INSULIN ASPART 100 UNITS/ML 3 ML PEN SC SCH (23:39)
[2019-12-30] MEDS: SODIUM CHLORIDE 0.9% 1000ML 1,000 ML IV SCH ×2 (00:04→11:23)
[2019-12-30] MEDS: METOPROLOL TARTRATE 25 MG TAB PO SCH ×2 (00:04→08:23)
[2019-12-30 00:31] LABS: Appearance Urine Clear (Clear); Bacteria Urine Automated Negative (Negative); Bilirubin Urine Negative (Negative); Blood Urine Trace (Negative); Color Urine Yellow; Epithelial Cell Urine Auto 20-30 /lpf (0-5); Glucose Urine UA 1+ (Negative); Ketones Urine Negative (Negative); Leukocyte Esterase Urine Negative (Negative); Nitrite Urine Negative (Negative); Protein Urine Trace (Negative); RBC Urine Automated 0-4 /hpf (0-4); Specific Gravity Urine 1.014 (1.000-1.030); Urobilinogen Urine Negative (Negative); pH Urine 5.5 (4.5-7.5)
[2019-12-30] MEDS ORDERED: INSULIN ASPART 100 UNITS/ML 3 ML PEN SC SCH (02:00)
[2019-12-30] MEDS ORDERED: LEVOTHYROXINE SODIUM 88 MCG TABLET PO SCH (06:30)
[2019-12-30 07:43] LABS: Basophils # (auto) 0.05 K/uL (0-0.2); Basophils % (auto) 0.5 %; Eosinophils # (auto) 0.31 K/uL (0-0.5); Eosinophils % (auto) 3.1 %; Hematocrit (blood only) 42.3 % (42-52); Hemoglobin 13.9 g/dL (14.0-18.0); Immature Granulocytes # (auto) 0.01 K/uL (0.00-0.02); Immature Granulocytes % (auto) 0.1 %; Lymphocytes # (auto) 2.23 K/uL (1.2-3.4); Lymphocytes % (auto) 22.4 %; Mean Corpuscular Hemoglobin 31.7 pg (25-34); Mean Corpuscular Hgb Conc 32.9 g/dL (32-36); Mean Corpuscular Volume 96.4 fL (80-100); Mean Platelet Volume 10.6 fL (7.4-10.4); Monocytes # (auto) 0.94 K/uL (0.11-0.59); Monocytes % (auto) 9.4 %; Neutrophils # (auto) 6.43 K/uL (1.4-6.5); Neutrophils % (auto) 64.5 %; Platelet Count 182 K/uL (130-400); RDW Coefficient of Variation 13.8 % (11.5-14.5); Red Blood Count 4.39 M/uL (4.7-6.1); White Blood Count 9.97 K/uL (4.8-10.8)
[2019-12-30 08:15] LABS: Albumin Level 2.8 gm/dl (3.4-5.0); BUN Creatinine Ratio 26.3 (10-20); Calcium 8.5 mg/dl (8.5-10.1); Creatinine Clr Calc Pharmacy 42.7 ml/min; Est GFR (African American) 37.8; Est GFR (Non-African American) 32.6; Potassium 3.1 mmol/L (3.5-5.1)
[2019-12-30 08:18] LABS: Albumin Globulin Ratio 0.7 (0.9-2); Bilirubin,Total 0.3 mg/dl (0.2-1); Total Protein 6.8 gm/dl (6.4-8.2)
[2019-12-30] MEDS: INSULIN ASPART 100 UNITS/ML 3 ML PEN SC SCH ×2 (08:21→12:01)
[2019-12-30] MEDS: GLUCOSAMINE SULFATE 500 MG CAP PO SCH (08:23)
[2019-12-30] MEDS: GABAPENTIN 300 MG CAP PO SCH (08:23)
[2019-12-30] MEDS: PANCREAZE (LIPASE 10,500U) CAP PO SCH ×2 (08:24→12:02)
[2019-12-30] MEDS ORDERED: MAGNESIUM OXIDE 400 MG TAB PO SCH (09:00)
[2019-12-30] MEDS ORDERED: ASPIRIN 81 MG ECTAB PO SCH (09:00)
[2019-12-30] MEDS ORDERED: PANTOprazole 40 MG TAB PO SCH (09:00)
[2019-12-30] MEDS ORDERED: hydroCHLOROthiazide 25 MG TAB PO SCH (09:00)
[2019-12-30] MEDS ORDERED: CEROVITE ADV FORMULA TAB PO SCH (09:00)
[2019-12-30 09:41] LABS: Estimated Average Glucose 272 mg/dl; Hemoglobin A1C 11.1 % (4.5-5.6)
--- NOTE | 2019-12-30 10:12 | Cardiology Consultation ---
Date of Consultation December 30, 2019 Assessment & Plan (1) Elevated troponin: Suspect the patient's elevated troponin is related to subendocardial ischemia realizing his known left ventricular hypertrophy and elevated blood pressure at time presentation. This does not represent coronary ischemia as the patient is completely asymptomatic and demonstrates no EKG changes. No further evaluation necessary. (2) Hypertension: Adequate control on current medical regimen. (3) Hyperlipidemia LDL goal <70: Continue atorvastatin. (4) History of permanent cardiac pacemaker placement: Continue follow-up with his police stenographer in [place], Dr. Thapa. History of Present Illness Attending Physician: Jacinto Blcak MD History of Present Illness Mr. Morales is a 74-year-old male admitted yesterday because of abnormal laboratory studies. This consultation was ordered as his troponin was. Of note, the patient follows with Dr. Thapa in [place]. The patient was in his usual state of health until yesterday. The patient presented to the [facility] for routine laboratory studies to be performed prior to an outpatient office visit next week. The patient received a call from the [facility] instructing him to proceed to the emergency room immediately as his laboratory studies were abnormal. The patient has been feeling well lately. He is able to carry on activities of daily life without exertional chest pain or limiting dyspnea. He further denies syncope, presyncope, PND, orthopnea palpitations, lower extremity edema and claudication. The patient is followed closely by Dr. Thapa as he has a permanent dual-chamber pacemaker. That was placed approximately 4-5 years ago due to symptomatic bradycardia. This occurred in the setting of an acute GI bleed. The patient has never suffered a myocardial infarction. He has never had a cardiac catheterization. The patient's ambulation is quite limited by his severe peripheral neuropathy and left-sided foot drop. The patient is only able to walk approximately 40 sepsis without stopping to rest. He has been told he will likely be wheelchair bound in the near future. His medications reviewed detail. Past medical and surgical history 1. Hypertension 2. Hypercholesterolemia 3. Moderate LVH 4. Diastolic dysfunction 5. Dual-chamber pacemaker 6. History symptomatic bradycardia 7. Chronic renal failure 8. Pancreatic insufficiency 9. Diabetes mellitus 10. Generalized polyneuropathy 11. Hypothyroidism 12. Morbid obesity 13. GERD 14. Ambulatory dysfunction 15. Left foot drop 16. History of lower GI bleed Social history and lives with his Disabled Smokes 1-2 packs cigarettes daily No alcohol Family history Mother at 97 from old age. Father's history is unknown Siblings are healthy No early coronary artery disease Review of systems A 10 point review of systems was undertaken and negative except for that described above. Allergies Allergy/AdvReac Type Severity Reaction Status Date / Time ASPIRIN (IN DOSES LARGER AdvReac Intermediate N/V Uncoded 12/29/19 18:35 THAN 81MG) Home Medications Home Medications Medication Instructions Recorded Confirmed Type aspirin 81 mg PO QAM #0 05/22/15 12/29/19 History gabapentin 300 mg PO BID #0 05/22/15 12/29/19 History grape seed extract 100 mg PO QPM #0 05/22/15 12/29/19 History levothyroxine 88 mcg PO QAM #0 05/22/15 12/29/19 History [id number]-[id number] [Creon] 1 cap PO TIDM #0 05/22/15 12/29/19 History multivitamin with minerals [Men's 1 tab PO DAILY #0 05/22/15 12/29/19 History One Daily] pantoprazole 40 mg PO QAM #0 05/22/15 12/29/19 History atorvastatin [Lipitor] 40 mg PO HS #0 tab 05/05/18 12/29/19 History cinnamon bark [Cinnamon] 1,000 mg PO QPM #0 05/05/18 12/29/19 History cranberry 4,200 mg PO HS #0 05/05/18 12/29/19 History glucosamine HCl 1,500 mg PO BID #0 05/05/18 12/29/19 History hydrochlorothiazide 25 mg PO QAM #0 tab 05/05/18 12/29/19 History insulin glargine [Lantus Solostar 30 unit SUBCUT HS #0 pen 05/05/18 12/29/19 History U-100 Insulin] magnesium oxide 500 mg PO QAM #0 05/05/18 12/29/19 History glipizide 5 mg PO BID 12/29/19 12/29/19 History metoprolol tartrate 25 mg PO BID 12/29/19 12/29/19 History Patient History Medical History (Updated 12/30/19 @ 10:19 by Juan Pedroza MD) Agent [place] poisoning Chronic pancreatitis GERD (gastroesophageal reflux disease) History of pacemaker Hyperlipidemia LDL goal <70 Hypertension Hypothyroidism (acquired) Insulin-requiring or dependent type II diabetes mellitus Morbid obesity Pancreatic insufficiency Peripheral neuropathy Surgical History (Updated 12/30/19 @ 03:28 by Jhon Anton MD) History of permanent cardiac pacemaker placement Family History Other Family history non-contributory Social History Preferred Language: Thai Communication Ability: Effective Middle Card Tender Required: No Beliefs That Will Affect Care: None Current Living Situation: Spouse Feels Safe at Home: Yes Smoking Status: Current every day smoker Tobacco Type: cigarettes ; Cigarettes Per Day: 20 ; Do You Dip or Chew Tobacco: No ; Hx Alcohol Use: No Hx Substance Use: No Physical Exam Physical Exam: In general this is an obese male lying supine bed without complaints. HEENT exam is negative. Neck is supple with full carotid upstrokes. No carotid bruits. Jugular venous pressure is flat 90. There is no thyromegaly. Cardiovascular exam reveals a regular rhythm with distant heart sounds. No obvious murmurs. No S3. Chest reveals a palpable pacemaker in the left subclavicular region. Lungs are clear without rales, rhonchi or wheezes. Abdomen is soft nontender without bruits. Extremities reveal intact radial artery pulses bilaterally. There is no peripheral edema. Results & Data ([facility]) Vital Signs (Past 12 Hours) Vital Signs Temp Pulse Pulse Resp BP BP Pulse Ox 12/30/19 08:12 36.7 C 60 20 169/79 H 94 12/30/19 07:10 60 12/30/19 03:26 36.7 C 60 18 146/79 H 95 12/30/19 02:11 179/86 H 12/30/19 00:21 36.7 C 59 L 18 197/84 H 94 12/29/19 23:25 36.6 C 60 16 194/85 H 92 Laboratory Results [facility] notes hemoglobin 13.9, hematocrit 42.3, white count 9.97, and platelet count 182 1000. Electrolytes note a sodium of 140, potassium 3.1, chloride 107, bicarb 20, BUN 52, creatinine 1.99, and glucose of 117. Initial troponin was 0.094 with follow-up values of 0.092 and 0.103. CK is 100 with an MB fraction of 2.4. TSH is normal 1.84. Magnesium level is 2.5. Diagnostic Findings EKG notes AV pacing. Chest x-ray shows no acute disease. PG Care Time/CCT Total # of Minutes Spent Total Time Spent with Patient: Total time spent is greater than 50% in coordination of care (as documented) at patient's floor/unit and/or counseling patient: Coding Level of Care Code 58812 OBS Care - Level 3 Diagnoses Elevated troponin R79.89 Hypertension I10 Hyperlipidemia LDL goal <70 E78.5 History of permanent cardiac pacemaker placement Z95.0
--- NOTE | 2019-12-30 11:09 | XCELERA ---
[id number]\[id number]
[2019-12-30] MEDS: POTASSIUM CHLORIDE / WTR 10 MEQ/100 ML PLCT IV SCH ×4 (11:19→14:52)
--- NOTE | 2019-12-30 14:50 | Electrocardiogram Report ---
Test Reason : Blood Pressure : / mmHG Vent. Rate : 060 BPM Atrial Rate : 060 BPM P-R Int : 206 ms QRS Dur : 182 ms QT Int : 518 ms P-R-T Axes : 000 046 075 degrees QTc Int : 518 ms AV dual-paced rhythm Abnormal ECG When compared with ECG of 05-MAY-2018 19:26, No significant change was found Confirmed by Thong Torres ([id number]) on 12/30/2019 2:50:26 PM Referred By: REFERRED SELF Confirmed By:Cash Torres
--- NOTE | 2019-12-30 14:58 | Electrocardiogram Report ---
Test Reason : Blood Pressure : / mmHG Vent. Rate : 060 BPM Atrial Rate : 060 BPM P-R Int : 216 ms QRS Dur : 154 ms QT Int : 520 ms P-R-T Axes : 000 076 099 degrees QTc Int : 520 ms AV dual-paced rhythm with prolonged AV conduction Abnormal ECG When compared with ECG of 29-DEC-2019 17:17, (unconfirmed) No significant change was found Confirmed by Thong Torres ([id number]) on 12/30/2019 2:57:38 PM Referred By: REFERRED SELF Confirmed By:Cash Torres
--- NOTE | 2019-12-30 14:59 | Pharmacy Report ---
Glycemic Control Consultation - Date of Service December 30, 2019 - Scope Scope: Glycemic Pharmacist consulted by Dr Sean Morales on 12/29 for glycemic control and to write orders per [facility] inpatient glycemic control protocol - Objective Weight: 115.2 kg Accuchecks BSG (last 24hrs): 12/29/19 12/29/19 12/29/19 17:20 21:21 21:22 Glucose 253 H POC Glucose 351 H* 345 H* 12/29/19 12/30/19 12/30/19 23:22 02:03 07:22 Glucose 117 H POC Glucose 313 H* 236 H 12/30/19 12/30/19 07:32 10:36 Glucose POC Glucose 124 H 154 H Laboratory Data (last 24hrs): 12/29/19 12/30/19 17:20 07:22 Potassium 3.2 L 3.1 L Carbon Dioxide 26 28 Anion Gap 8.0 5.0 Creatinine 2.40 H 1.99 H D Est Cr Clr Drug Dosing 35.5 42.7 HbA1c: Hemoglobin A1c 11.1 % (4.5-5.6) H 12/30/19 07:22 - Recent Pertinent Medications Outpatient Anti-diabetic Regimen: * Lantus 30 units qHS * Glipizide 5 mg BID * A1c = 11.1 % 12/30/19 The patient is currently receiving: * Basal insulin: Lantus 30 units every 24 hours * Correctional Insulin: Novolog Correction per scale ACHS Goal Range: Low 100 mg/dL - High 150 mg/dL Correction Factor: 25 mg/dL/unit * Prandial insulin: Per carb ratio of 1 unit per 10 grams CHO consumed Risk Factors for Insulin Resistance: * Diet: T2DM - Assessment & Plan Assessment & Plan: ASSESSMENT: * 74 y/o male admitted for NSTEMI. He has a history of T2DM, uncontrolled as per recent A1c. * BSGs were elevated on admission but have come down nicely today * He has been continued on his outpatient basal dose and weight-based/stress ~1.5 for Novolog parameters PLAN FOR INPATIENT GLYCEMIC CONTROL: * Holding outpatient oral diabetes medications * Basal insulin - no change * Lantus 30 units SQ qHS * Bolus insulin - no change * NovoLog per scale ACHS or Q6hrs while NPO * Goal Range: Low 100 mg/dL - High 150 mg/dL * Correction Factor: 25 mg/dL/unit * Nutritional / Prandial insulin per carb ratio of 1 unit per 10 grams CHO consumed * Please note that the plan above was derived based on current level of insulin resistance and hospital stress. These recommendations are appropriate for inpatient admission only. Plan of care upon discharge will need to be reassessed to avoid potential outpatient hypo/hyperglycemia. Thank you.
--- NOTE | 2019-12-30 15:00 | Discharge Summary ---
Date of Service December 30, 2019 Admission HPI Per Admitting Provider The patient is a 74-year-old male with a past medical history including agent orange, hyperlipidemia, peripheral neuropathy, diabetes mellitus, hypertension, hypothyroidism, pancreatic insufficiency, GERD and ambulatory dysfunction due to lower extremity weakness. Earlier in the day, he had gone to the [facility] in [place] to have routine laboratories performed in anticipation of his routine visit next week, but received a phone call at home after labs had been processed at the [facility], that his laboratories were abnormal and he was to report immediately to the emergency department. He received no specific word otherwise as to the exact nature of the abnormality, and we do not have access to the information at this time and night. He has no specific complaints otherwise other than that he felt a bit lightheaded and dizzy upon arrival to the emergency department, as he is diabetic and had not not eaten all day. Admission Exam Per Admitting Provider The patient is awake, alert and oriented 3, well developed and well nourished, normocephalic and atraumatic, lying in bed and in no acute distress. HEENT--PERRL, EOMI, mucous membranes and oropharynx dry. Neck--supple. No JVD. No bruits. Thyroid normal, trachea midline, no adenopathy. Heart--normal S1 and S2. No murmurs, rubs or gallops. Lungs--clear bilaterally, no respiratory distress, no accessory muscle use. Abdomen--normal bowel sounds and soft. Nontender. Nondistended. Morbidly obese. Extremities--no cyanosis or clubbing. No edema. There are good distal pulses b/l. Dermatologic--normal skin turgor, normal color, no abnormal lymph nodes, no rash. Neurologic--cranial nerves II through XII grossly intact. Rheumatologic--normal range of motion. Psychiatric--normal affect. Principal Diagnosis Elevated troponin, Elevated Creatinine Discharge Exam Constitutional cooperative; no acute distress and not ill appearing Neck normal visual inspection Respiratory normal respiratory effort and able to speak in complete sentences; no respiratory distress, no labored breathing, no retractions, no cough and no audible wheezes Auscultation: lungs clear to auscultation bilaterally; no crackles, no rales, no rhonchi and no wheezes barrel chest Cardiovascular Rate/Rhythm: regular rate and regular rhythm Heart Sounds: normal S1 and normal S2; no gallop, no murmur and no cardiac rub Vessels: posterior tibial pulses present Extremities: no pedal edema and no edema Gastrointestinal (Abdomen) Inspection/Auscultation: abdomen normal to inspection and normal bowel sounds; abdomen not distended Percussion/Palpation: abdomen soft; abdomen nontender, no guarding, abdomen not rigid and no abdominal mass Discharge Data Allergies Allergy/AdvReac Type Severity Reaction Status Date / Time ASPIRIN (IN DOSES LARGER AdvReac Intermediate N/V Uncoded 12/29/19 18:35 THAN 81MG) Consultations 12/29/19 19:05 ED Decision to Admit Stat 12/29/19 21:44 Consult Cardiology Routine Consult Case Management - Discharge Planning Routine Ordered Studies 12/29/19 17:43 CT abd pelvis wo con Stat Hospital Course (1) Elevated troponin: Mr. Morales was sent to the emergency department [facility] being [facility]. On admission he was found to have an elevated troponin at 0.092 and a creatinine of 2.40 with an abnormal EKG. Cardiac echo showed asymmetric left ventricular hypertrophy with EF of 50%. Creatinine decreased to 1.99 with fluids. During his stay he denied any symptoms of chest pain, palpitations, dyspnea, weakness. Given his improving but still elevated Creatinine test, we recommended he get a BMP in one week and follow up with his primary care provider to ensure proper return to baseline. All other chronic medical conditions were managed as per his home regimens. (2) Acute kidney injury superimposed on chronic kidney disease: (3) Morbid obesity: (4) Insulin-requiring or dependent type II diabetes mellitus: (5) NSTEMI, initial episode of care: (6) Pancreatic insufficiency: (7) Hypertension: Total Time Total Time Spent Total Time Spent (In Minutes): 25 Discharge Plan Discharge Items Patient Disposition: Home - Self-Care Reason For Visit: ELEVATED TROPONIN Discharge Diagnosis: Elevated troponin, Elevated Creatinine Activity: Resume your previous activity Non-emergency contact: Primary Care Provider Call non-emergency contact if: your symptoms worsen, your pain is not controlled and your temperature is above 101 Follow-up/Referrals: Farnaz Richardson MD [Resident] - 01/13/20 PCP,NO [Primary Care Provider] - Diet: Carb Consistent or DM2 Addtl Attending Provider Instructions: You were sent to the hospital for abnormal labs and were found to have a mildly elevated cardiac enzyme on exam in the emergency department. Given this elevation and your history of medical issues, you were admitted to the hospital for a cardiac workup. Your cardiac echo showed your heart is functioning well. You should follow up with your still operator brandy and primary care physician in the near future to discuss your labs and symptoms. We have written a script for you have a follow up BMP in a week to ensure that your electrolytes stay within normal range. You can discuss the results of those labs with your primary care provider. Pending Studies at Discharge: No Stand-Alone Forms: My [facility] [employer], Smoking Cessation Medications and DC Order Prescriptions: Continued aspirin 81 mg Tablet,Delayed Release (Dr/Ec) 81 mg PO QAM Qty: 0 RF: 0 levothyroxine 88 mcg Tablet 88 mcg PO QAM Qty: 0 RF: 0 pantoprazole 40 mg Tablet,Delayed Release (Dr/Ec) 40 mg PO QAM Qty: 0 RF: 0 grape seed extract 50 mg Capsule 100 mg PO QPM Qty: 0 RF: 0 gabapentin 300 mg Capsule 300 mg PO BID Qty: 0 RF: 0 multivitamin with minerals [Men's One Daily] Tablet 1 tab PO DAILY Qty: 0 RF: 0 Creon 24,000-76,000 -120,000 unit Capsule,Delayed Release(Dr/Ec) 1 cap PO TIDM Qty: 0 RF: 0 magnesium oxide 500 mg Tablet 500 mg PO QAM Qty: 0 RF: 0 atorvastatin [Lipitor] 40 mg Tablet 40 mg PO HS Qty: 0 RF: 0 hydrochlorothiazide 25 mg Tablet 25 mg PO QAM Qty: 0 RF: 0 cranberry 500 mg Capsule 4,200 mg PO HS Qty: 0 RF: 0 glucosamine HCl 1,500 mg Tablet 1,500 mg PO BID Qty: 0 RF: 0 cinnamon bark [Cinnamon] 500 mg Capsule 1,000 mg PO QPM Qty: 0 RF: 0 Lantus Solostar U-100 Insulin 100 unit/mL (3 mL) Insulin Pen 30 unit SUBCUT HS Qty: 0 RF: 0 glipizide 5 mg Tablet 5 mg PO BID RF: 0 metoprolol tartrate 25 mg Tablet 25 mg PO BID RF: 0 Discharge Orders: Discharge Order (Routine); Ordered 12/30/19 Ordered By: Farnaz Chang/Other Patient Handouts: Diabetes Liquid Floor And Wall Applier Complications, Diabetes Resources, Diabetes Type 2 Coping, Diabetes Healthy Meals, Diabetes Exercise Benefits, Diabetes Living Life, Diabetes Manage A1C Test Admission Data Admit Date/Time: 12/29/19 20:18 Attending Provider: Jacinto Black Admit Provider: Jhon Anton Primary Care Provider: PCP,NO Other Providers: Jhon Anton ; Juan Pedroza ; Farnaz Richardson Other Interventions: Discharge Summary Assessment (RN) Last Done: 12/30/19 15:57 Supervising Physician Co-Signing Physician Notes Attending attestation Pt seen and examined in concert with Dr. Richardson. In agreement with the documented findings as noted in the resident documentation with any exceptions or additions as noted here. Resting comfortably in bed, feeling at baseline. On examination. S1/S2 nl RRR no MCG. CTAB. Abd NT/ND BS+ve Elevated troponin - cardiology consultation appreciated - troponin stably elevated, but downtrended. Echocardiogram as noted. No event on telemetry. DMII, insulin dependent - well controlled on present regimen, resumed on discharge. JIMMY on CKD III - improved to 1.99, avoid nephrotoxic medications, follow with primary care Else see resident documentation as noted. Time spent: 25 minutes. Resident Activity Tracking Resident Involvement: Resident Care Provided Care Provided: Adult Hospital Medicine
--- NOTE | 2020-01-01 13:34 | Coding Query ---
CODING QUERY To promote full compliance with coding requirements relating to patient care, provider participation is requested in all cases of tunnel kiln firer uncertainty. Please assist us with the question(s) below: Coding Question(s): There is documentation of Elevated Troponin with documentation in the record of NSTEMI as well as H&P documenting NSTEMI and likely type 2 NC and Cardiology Consultation documentation of subedocardial ischemia. Please clarify below, in your clinical opinion. ( x) Elevated Troponin, unspecified cause and No NSTEMI or Type 2 NC ( ) Elevated Troponin is NSTEMI ( ) Elevated Troponin is Type 2 NC ( ) Elevated Troponin is Other: Please Specify Physician's Response(s): Thank you Chiquita Lopez Principal Diagnosis: "that condition established after study, to be chiefly responsible for occasioning the admission of the patient to the hospital for care." Co-Existing Principal Diagnosis: "when two or more diagnoses equally meet the criteria for principal diagnosis as determined by the circumstances of admission, diagnostic work up, and/or therapy provided, and the Alphabetic Index, Tabular List, or another coding guideline does not provide sequencing direction, any one of the diagnoses may be sequenced first." "When the physician has documented what appears to be a current diagnosis in the body of the record, but has not included the diagnosis in the final diagnostic statement, the physician should be asked whether the diagnosis should be added." (Source Coding Clinic 2 QTR90. p3-4) CORNELIO
== END 2019-12-30 17:15 | disposition home or self-care (01) | DRG 684 ==
LOC: ED 16:25 → 2S 20:18 → SUATTDRO 20:18 → 2S 20:40

== ENCOUNTER 2020-06-22 03:38 | Inpatient (IN) ==
--- NOTE | 2020-06-22 03:54 | Emergency Department Note ---
Impression & Plan Acute renal failure, Acute pyelonephritis, Hydronephrosis of right kidney ED Provider Note Name: ALFREDO RODAS Age: 74 Sex: M Arrives Via: Ambulance Informant: Patient, EMS ED Provider: James Stewart MD Chief Complaint: Right flank pain Impression: Acute Renal failure Acute Pyelonephritis Hydronephrosis of right kidney Medical Decision Makin yr old male with history CKD, DMII, CAD, HTN, GERD, DLP, Hypothyroid arrives with worsening right flank pain over the last 3 weeks, acutely worse last day or so. Associated urinary frequency and urgency until no UOP the last 8-12 hours. States UTI 3 weeks ago treated with unknown ABX. He is not septic appearing and declines pain medications. On exam he is however dehydrated. CT done without contrast given CKD history which reveals right hydro with right renal stranding, bladder thickening and no evidence stone. Labs with elevated WBC as well as Cr 5.6 acutely elevated from baseline along with BUN. Potassium OK. He is not fluid overloaded, rather clearly dehydrated by exam. No indication for emergent dialysis this early am. Without clear evidence stone did not consult Uro to ED. Fluids given and patient discussed with hospitalist team who note they will manage abx though UA still pending (concern pyelo by CT). Prior Medical Record and Triage/Nursing Notes reviewed by Me Additional history obtained from chart Differentials:Renal colic, UTI, appendicitis, diverticulitis, mesenteric ischemia, aortic pathology, infections, inflammatory bowel disease, PUD, biliary pathology, as well as other pathologies. Vital Signs: reviewed and remarkable for HTN Interventions: Saline Lock, NSS bolus Labs:Reviewed and remarkable for elevated cr, bun, wbc Imaging:[facility] Radiologist interpretation reviewed by me: CT abd/pel without contrast. Right hydronephrosis with stranding, thickened bladder wall, no ureteral stone Consults:Dr Desean CRAWLEY Hospitalist Plan: Disposition:Hospitalization. Condition: Fair Blood pressure:Elevated - Referred to Hospitalist Prescriptions:none PDMP: n/a History of Present Illness:74 yr old male with history of tobacco use, DMII, HTN, CKD, GERD, CAD, Hypothyroid, DLP arrives for evaluation of right flank pain. Waxing and waning right flank pain over the last 3 weeks. No significant change with position. Pain radiates to RLQ and sometimes right lateral hip. Denies trauma, injury, falls. No previous history of pain like this. Over last few days significantly worsening pain and notes that he has frequent urination. Using Gabapentin for pain control with improvement. No previous kidney stone issues. Notes PCP said his kidneys were not working well recently though denies renal failure. Patient notes he was diagnosed with UTI 3 weeks ago treated with unknown antibiotic. ROS: See above HPI for pertinent positives & negatives. A total of 10 systems reviewed and were otherwise negative. Past Medical History:DMII, HTN, CKD, GERD, CAD, Hypothyroid, DLP Past Surgical History:Pacemaker Family History:Denies family history Social History:Lives with , Retired, [place], Smokes, no ETOH, no Drugs Home Medications:See Below Allergies:ASA Vitals:Blood Pressure: 183/90, Pulse 70, RR 18, T 36.9C, O2 93% on RA Physical Exam: GENERAL: Patient is mildly uncomfortable appearing and in mild distress. Dehydrated appearing EYES: No scleral icterus, unremarkable pupils. ENT: Mucous membranes dry, no nasal congestion. NECK: No masses appreciated, nomeningismus, trachea is midline. RESPIRATORY: No dyspnea. Diffuse wheezing (patient states chronic) Clear to auscultation and equal bilaterally. No rhonchi. CARDIOVASCULAR: Regular rate and rhythm.No murmurs, rubs, gallops appreciated. GASTROINTESTINAL: Abdomen soft, non-tender, no peritonitis.Bowel sounds positive.No masses appreciated. BACK: No midline tenderness, no CVA tenderness EXTREMITIES: Normal motion all extremities, no cyanosis, no edema. NEUROLOGIC: Alert and oriented, no acute motor or sensory deficits, no focal weakness, cranial nerves grossly intact. SKIN: No rash, no jaundice, no diaphoresis. PSYCH: Appropriate GCS: 15 ED Course: Times/Reassessments: multiple, comfortable, declines pain meds, periodically sleeping James Stewart MD Past Med/Surg History Medical History (Updated 06/22/20 @ 06:17 by Víctor Bradshaw MD) Agent [place] poisoning Chronic pancreatitis GERD (gastroesophageal reflux disease) History of pacemaker Hyperlipidemia LDL goal <70 Hypertension Hypothyroidism (acquired) Insulin-requiring or dependent type II diabetes mellitus Morbid obesity Pancreatic insufficiency Peripheral neuropathy Surgical History (Updated 12/30/19 @ 03:28 by Jhon Anton MD) History of permanent cardiac pacemaker placement Family History Other Family history non-contributory Social History Smoking Status: Current every day smoker Tobacco Type: Cigarettes Cigarettes Per Day: 20; Hx Alcohol Use: No Hx Substance Use: No Preferred Language: Prydeinig Communication Ability: Effective Resident Intern Required: No Beliefs That Will Affect Care: None marital status: Current Living Situation: Spouse Feels Safe at Home: Yes Allergies Allergies Allergy/AdvReac Type Severity Reaction Status Date / Time ASPIRIN (IN DOSES LARGER AdvReac Intermediate N/V Uncoded 12/29/19 18:35 THAN 81MG) Home Meds Home Medications Medication Instructions Recorded Confirmed Creon 1 cap PO TIDM #0 05/22/15 06/22/20 aspirin 81 mg PO QAM #0 05/22/15 06/22/20 gabapentin 300 mg PO BID #0 05/22/15 06/22/20 grape seed extract 100 mg PO QPM #0 05/22/15 06/22/20 levothyroxine 88 mcg PO QAM #0 05/22/15 06/22/20 multivitamin with minerals [Men's 1 tab PO DAILY #0 05/22/15 06/22/20 One Daily] pantoprazole 40 mg PO QAM #0 05/22/15 06/22/20 Lantus Solostar U-100 Insulin 30 unit SUBCUT HS #0 pen 05/05/18 06/22/20 atorvastatin [Lipitor] 40 mg PO HS #0 tab 05/05/18 06/22/20 hydrochlorothiazide 25 mg PO QAM #0 tab 05/05/18 06/22/20 magnesium oxide 500 mg PO QAM #0 05/05/18 06/22/20 metoprolol tartrate 25 mg PO BID 12/29/19 06/22/20 amlodipine 10 mg PO DAILY 06/22/20 06/22/20 hydralazine 10 mg PO BID 06/22/20 06/22/20 Results & Data (ED) Vital Signs Vital Signs - 24 hr 06/22/20 03:58 06/22/20 05:28 Temperature 36.9 C Temperature Source Oral Pulse Rate 60 Pulse Rate [Apical] 60 Pulse Rhythm Regular Respiratory Rate 20 20 Respiratory Effort / Characteristics Non-Labored Spontaneous Non-Labored Spontaneous Respiratory Depth Normal Normal Respiratory Pattern Regular Regular Blood Pressure 166/70 H Blood Pressure [Right Arm] 163/124 H Blood Pressure Mean 102 Blood Pressure Mean [Right Arm] 137 Pulse Oximetry 93 93 Oxygen Delivery Method Room Air Room Air Sepsis Recent Fever Within 48 Hours No Sepsis New/Unexplained Change in Mental Status No Sepsis Action Taken by Nursing No Action Required Laboratory Data Result diagrams: 06/22/20 03:56 06/22/20 05:05 Lab Results 06/22/20 06/22/20 06/22/20 Range/Units 03:56 03:56 05:05 WBC 14.03 H (4.8-10.8) K/uL RBC 4.09 L (4.7-6.1) M/uL Hgb 12.5 L (14.0-18.0) g/dL Hct 38.7 L (42-52) % MCV 94.6 (80-100) fL MCH 30.6 (25-34) pg MCHC 32.3 (32-36) g/dL RDW Std Deviation 56.1 H (36.4-46.3) fL RDW Coeff of Hilda 16.1 H (11.5-14.5) % Plt Count 225 (130-400) K/uL MPV 10.5 H (7.4-10.4) fL Immature Gran % (Auto) 0.4 % Neut % (Auto) 78.1 % Lymph % (Auto) 10.3 % Hawkins % (Auto) 9.6 % Eos % (Auto) 1.5 % Baso % (Auto) 0.1 % Neut # (Auto) 10.97 H (1.4-6.5) K/uL Lymph # (Auto) 1.44 (1.2-3.4) K/uL Hawkins # (Auto) 1.34 H (0.11-0.59) K/uL Eos # (Auto) 0.21 (0-0.5) K/uL Baso # (Auto) 0.02 (0-0.2) K/uL Immature Gran # (Auto) 0.05 H (0.00-0.02) K/uL Sodium 141 (136-145) mmol/L Potassium 4.7 (3.5-5.1) mmol/L Chloride 113 H (98-107) mmol/L Carbon Dioxide 19 L (21-32) mmol/L Anion Gap 9.0 (3-11) BUN 77 H (7-18) mg/dl Creatinine 5.29 H* (0.6-1.4) mg/dl Est Cr Clr Drug Dosing 16.4 ml/min Est GFR ( Amer) 11.6 Est GFR (Non-Af Amer) 10.0 BUN/Creatinine Ratio 14.4 (10-20) Glucose 104 H (70-99) mg/dl Calcium 6.6 L (8.5-10.1) mg/dl Total Bilirubin 0.4 (0.2-1) mg/dl Direct Bilirubin 0.1 (0-0.2) mg/dl AST 21 (15-37) U/L ALT 22 (12-78) U/L Alkaline Phosphatase 113 (45-117) U/L Total Protein 7.6 (6.4-8.2) gm/dl Albumin 2.6 L (3.4-5.0) gm/dl Lipase 16 L (73-393) U/L Urine Color Urine Appearance (Clear) Urine pH (4.5-7.5) Ur Specific [place] (1.000-1.030) Urine Protein (Negative) Urine Glucose (UA) (Negative) Urine Ketones (Negative) Urine Blood (Negative) Urine Nitrite (Negative) Urine Bilirubin (Negative) Urine Urobilinogen (Negative) Ur Leukocyte Esterase (Negative) Urine WBC (Auto) (0-5) /hpf Urine RBC (Auto) (0-4) /hpf U Hyaline Cast (Auto) (0-5) /lpf U Epithel Cells (Auto) (0-5) /lpf Urine Bacteria (Auto) (Negative) Ur Renal Epithelial Cell Urine Yeast 06/22/20 Range/Units 05:26 WBC (4.8-10.8) K/uL RBC (4.7-6.1) M/uL Hgb (14.0-18.0) g/dL Hct (42-52) % MCV (80-100) fL MCH (25-34) pg MCHC (32-36) g/dL RDW Std Deviation (36.4-46.3) fL RDW Coeff of Hilda (11.5-14.5) % Plt Count (130-400) K/uL MPV (7.4-10.4) fL Immature Gran % (Auto) % Neut % (Auto) % Lymph % (Auto) % Hawkins % (Auto) % Eos % (Auto) % Baso % (Auto) % Neut # (Auto) (1.4-6.5) K/uL Lymph # (Auto) (1.2-3.4) K/uL Hawkins # (Auto) (0.11-0.59) K/uL Eos # (Auto) (0-0.5) K/uL Baso # (Auto) (0-0.2) K/uL Immature Gran # (Auto) (0.00-0.02) K/uL Sodium (136-145) mmol/L Potassium (3.5-5.1) mmol/L Chloride (98-107) mmol/L Carbon Dioxide (21-32) mmol/L Anion Gap (3-11) BUN (7-18) mg/dl Creatinine (0.6-1.4) mg/dl Est Cr Clr Drug Dosing ml/min Est GFR ( Amer) Est GFR (Non-Af Amer) BUN/Creatinine Ratio (10-20) Glucose (70-99) mg/dl Calcium (8.5-10.1) mg/dl Total Bilirubin (0.2-1) mg/dl Direct Bilirubin (0-0.2) mg/dl AST (15-37) U/L ALT (12-78) U/L Alkaline Phosphatase (45-117) U/L Total Protein (6.4-8.2) gm/dl Albumin (3.4-5.0) gm/dl Lipase (73-393) U/L Urine Color Yellow Urine Appearance Clear (Clear) Urine pH 5.0 (4.5-7.5) Ur Specific [place] 1.014 (1.000-1.030) Urine Protein 1+ H (Negative) Urine Glucose (UA) 1+ H (Negative) Urine Ketones Negative (Negative) Urine Blood 3+ H (Negative) Urine Nitrite Negative (Negative) Urine Bilirubin Negative (Negative) Urine Urobilinogen Negative (Negative) Ur Leukocyte Esterase 1+ H (Negative) Urine WBC (Auto) >30 H (0-5) /hpf Urine RBC (Auto) >30 H (0-4) /hpf U Hyaline Cast (Auto) 1-5 (0-5) /lpf U Epithel Cells (Auto) >30 H (0-5) /lpf Urine Bacteria (Auto) Negative (Negative) Ur Renal Epithelial Cell Not Reportable Urine Yeast Not Reportable Administered Medications Sodium Chloride (Nss 1000ml) 1,000 mls @ 125 mls/hr IV .Q8H LAW Stop: 07/22/20 06:14 Last Admin: 06/22/20 06:21 Dose: 125 mls/hr Documented by: [id number] Discontinued Medications Sodium Chloride (Nss 1000ml) 500 mls @ 999 mls/hr IV .Q31M ONE Stop: 06/22/20 05:13 Last Infusion: 06/22/20 06:07 Dose: 0 mls/hr Documented by: [id number] Admin: 06/22/20 04:57 Dose: 999 mls/hr Documented by: [id number] Discharge Plan Visit Data Chief Complaint: Unable to Void Stated Complaint: urinary symptoms ED Provider: James Stewart Discharge Problem: Acute renal failure, Acute pyelonephritis, Hydronephrosis of right kidney Patient Disposition: Admitted As Inpatient Discharge Instructions Interventions: ED Discharge Assessment Last Done: 06/22/20 06:42
[2020-06-22 04:02] LABS: Basophils # (auto) 0.02 K/uL (0-0.2); Basophils % (auto) 0.1 %; Eosinophils # (auto) 0.21 K/uL (0-0.5); Eosinophils % (auto) 1.5 %; Hematocrit (blood only) 38.7 % (42-52); Hemoglobin 12.5 g/dL (14.0-18.0); Immature Granulocytes # (auto) 0.05 K/uL (0.00-0.02); Immature Granulocytes % (auto) 0.4 %; Lymphocytes # (auto) 1.44 K/uL (1.2-3.4); Lymphocytes % (auto) 10.3 %; Mean Corpuscular Hemoglobin 30.6 pg (25-34); Mean Corpuscular Hgb Conc 32.3 g/dL (32-36); Mean Corpuscular Volume 94.6 fL (80-100); Mean Platelet Volume 10.5 fL (7.4-10.4); Monocytes # (auto) 1.34 K/uL (0.11-0.59); Monocytes % (auto) 9.6 %; Neutrophils # (auto) 10.97 K/uL (1.4-6.5); Neutrophils % (auto) 78.1 %; Platelet Count 225 K/uL (130-400); RDW Coefficient of Variation 16.1 % (11.5-14.5); RDW Standard Deviation 56.1 fL (36.4-46.3); Red Blood Count 4.09 M/uL (4.7-6.1); White Blood Count 14.03 K/uL (4.8-10.8)
[2020-06-22 04:40] LABS: Albumin Level 2.6 gm/dl (3.4-5.0); BUN Creatinine Ratio 14.4 (10-20); Bilirubin,Total 0.4 mg/dl (0.2-1); Calcium 6.6 mg/dl (8.5-10.1); Creatinine Clr Calc Pharmacy 16.4 ml/min; Est GFR (African American) 11.6; Total Protein 7.6 gm/dl (6.4-8.2)
[2020-06-22] MEDS ORDERED: SODIUM CHLORIDE 0.9% 1000ML 500 ML IV ONE (04:43)
[2020-06-22 05:27] LABS: Potassium 4.7 mmol/L (3.5-5.1)
[2020-06-22 05:32] LABS: Bilirubin Direct 0.1 mg/dl (0-0.2)
--- NOTE | 2020-06-22 05:52 | History & Physical Report ---
Date of Service June 22, 2020 Assessment & Plan (1) Acute renal failure: Isaak is a 74-year-old male with a past medical history of CKD, type 2 diabetes on insulin, hypertension, GERD, pancreatic insufficiency, history of an STEMI with preserved ejection fraction, and agent orange exposure who presents with 1 week of UTI symptoms and 12 hours of anuria. Acute renal failure 2/2 pyelonephritis +/- ?Obstruction with findings of circumferential cystitis Patient with UTI symptoms for 1 month, polyuria every 15 minutes to 1 hour over the last week which did not improve with an unknown outpatient antibiotic with abrupt and Ureacin [address] abdomen: Moderate right hydroureteronephrosis with fat stranding around the kidney and ureter, no obstructing stone. Circumferential mucosal thickening of the bladder also appreciated. Leukocytosis on admission Patient extremely volume depleted on exam Baseline approximately 1.7-2 acutely increased to 5.29 on admission Empiric Rocephin daily Nephrology consulted for an area and ARF Urology consulted for tensional cystoscopy, see below Received NSS bolus in ED Continue NSS 125 cc/h maintenance, cautious fluid boluses as needed Circumferential bladder thickening Patient with extensive 2 pack/year over 60-year smoking history and agent orange exposure May be due to UTI as above, given risk factors for transitional carcinoma urology consulted for potential cystoscopy N.p.o. pending eval Coronary artery disease Last echo with preserved EF of 60% Continue amlodipine, aspirin, atorvastatin, metoprolol Patient hypertensive on admission, hold antihypertensives if systolic pressure falls below 100 systolic Type 2 diabetes mellitus with neuropathy Insulin basal bolus weight-based Glucose checks AC/at bedtime or every 6 hours if remaining n.p.o. BMP daily Hold oral anti-glycemic's Pancreatic insufficiency, chronic Continue Creon 1 P.o. 3 times daily with meals GERD Continue Protonix 40 mg p.o. daily Hypothyroidism Continue Synthroid 88 mcg daily FEN: As above DVT prophylaxis: SCDs, pharmacal prophylaxis held pending potential procedure evaluation CODE STATUS: Full code Disposition: Med telemetry (2) Chronic pancreatitis: (3) Elevated troponin: (4) Insulin-requiring or dependent type II diabetes mellitus: (5) Hypertension: (6) Hyperlipidemia LDL goal <70: (7) GERD (gastroesophageal reflux disease): (8) Pancreatic insufficiency: (9) Pyelonephritis: History of Present Illness Primary Care Provider: NO PCP Isaak is a 74-year-old male with a past medical history of CKD, type 2 di abetes on insulin, hypertension, GERD, pancreatic insufficiency, history of an STEMI with preserved ejection fraction, and agent orange exposure who presents with 1 week of UTI symptoms and 12 hours of anuria. 3-4 weeks ago developed pain with urination and polyuria to every 15 [address] hour. He was placed on an antibiotic by the [place] but he does not know what it was. Took it for about a week. It did not help his symptoms at all. Doesnt remember which antibiotic. No medication allergies. Last UTI was many years ago. Normally no urinary sx, no trouble peeing, no obstructive symptoms. Denies fevers, chills, night swetas. He endorses R sided sharp back pain which started after a week or so after his pain with urination. After 3 to 4 weeks of peeing every 15 minutes to every hour with intense burning pain with urination he suddenly stopped peeing last night around 7 or 8:00. He also notes he 'Had a double dose of his blood pressure medication about a week ago' but does not recall which medicine.Denies any heart problems. Denies chest pain, chest pressure. Endorses chronic shortness of breath but has not had spirometry and uses no inhalers. Attempted Tx: None other than prescription tx as above. Medical history: Reviewed Surgical history: Reviewed Allergies: No known drug allergies Social: Tobacco 2ppd x60 years. No alcohol. No recreational drugs. Lives with his at home. Noone sick at home. Normally gets care at the [facility] in [place]. "I have two doctors in [place] I've never met, seen one by telephone." He is pending nephrology and diabetes consult but hasn't met them. CODE STATUS: Full code Allergies Allergy/AdvReac Type Severity Reaction Status Date / Time ASPIRIN (IN DOSES LARGER AdvReac Intermediate N/V Uncoded 12/29/19 18:35 THAN 81MG) Home Medications Home Medications Medication Instructions Recorded Confirmed Type Creon 1 cap PO TIDM #0 05/22/15 06/22/20 History aspirin 81 mg PO QAM #0 05/22/15 06/22/20 History gabapentin 300 mg PO BID #0 05/22/15 06/22/20 History grape seed extract 100 mg PO QPM #0 05/22/15 06/22/20 History levothyroxine 88 mcg PO QAM #0 05/22/15 06/22/20 History multivitamin with minerals [Men's 1 tab PO DAILY #0 05/22/15 06/22/20 History One Daily] pantoprazole 40 mg PO QAM #0 05/22/15 06/22/20 History Lantus Solostar U-100 Insulin 30 unit SUBCUT HS #0 pen 05/05/18 06/22/20 History atorvastatin [Lipitor] 40 mg PO HS #0 tab 05/05/18 06/22/20 History hydrochlorothiazide 25 mg PO QAM #0 tab 05/05/18 06/22/20 History magnesium oxide 500 mg PO QAM #0 05/05/18 06/22/20 History metoprolol tartrate 25 mg PO BID 12/29/19 06/22/20 History amlodipine 10 mg PO DAILY 06/22/20 06/22/20 History hydralazine 10 mg PO BID 06/22/20 06/22/20 History Past Med/Surg History Medical History Agent [place] poisoning Chronic pancreatitis GERD (gastroesophageal reflux disease) History of pacemaker Hyperlipidemia LDL goal <70 Hypertension Hypothyroidism (acquired) Insulin-requiring or dependent type II diabetes mellitus Morbid obesity Pancreatic insufficiency Peripheral neuropathy Surgical History History of permanent cardiac pacemaker placement Family History Other Family history non-contributory Social History Smoking Status: Current every day smoker Tobacco Type: Cigarettes Cigarettes Per Day: 20; Second Hand Exposure: No; Do You Dip or Chew Tobacco: No; Tobacco Cessation Education Requested by Patient: No Hx Alcohol Use: No Hx Substance Use: No Preferred Language: [place] Citizen Communication Ability: Effective Marking 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 NAD. Cooperative. HEENT: Atraumatic, normocephalic. Dukas membranes extremely dry, tongue cracked, lips dry and cracked. Pulm: CTAB A&P. -wheezes, -rales, -rhonchi. Symmetrical chest rise. No increase work of breathing. No respiratory distress. Cardiac: Bigeminy, -mrg. Radial pulses intact and symmetrical. Abdominal: Nontender, nondistended, soft. BS present. Right CVA tenderness present. Extremities: Warm, dry. Sensation intact. Strength grossly intact. Results & Data Results & Data ([facility]) Vital Signs (Past 12 Hours) Vital Signs Temp Pulse Pulse Resp BP BP Pulse Ox 06/22/20 05:28 60 20 163/124 H 93 06/22/20 03:58 36.9 C 60 20 166/70 H 93 Supervising Physician Co-Signing Physician Notes Attending addendum: I have physically seen this patient, have supervised the medical residents activities, and agree with the H&P unless as otherwise noted. Assessment and Plan: Acute renal failure/moderate right hydroureteronephrosis and pyelonephritis- Creatinine 5.29 upon admission, with previous range 1.74-2.40. Follow urine culture and sensitivity Ceftriaxone 1 g IV daily IV fluids as noted Hold HCTZ Consult urology for potential cystoscopy. Consult nephrology. CAD/hypertension- Continue amlodipine, atorvastatin and metoprolol. Hold aspirin preprocedure Hold HCTZ as noted Diabetes mellitus- Reduce Lantus insulin as noted. Placed on Accu-Cheks before meals and at bedtime with NovoLog coverage for scale Exocrine pancreatic insufficiency- Continue Creon 1 tablet p.o. 3 times daily with meals GERD- Continue pantoprazole 40 mg daily Remainder of orders and notations as noted Resident Activity Tracking Resident Involvement: Resident Care Provided Care Provided: Adult Hospital Medicine
[2020-06-22] MEDS ORDERED: SODIUM CHLORIDE 0.9% 1000ML 1,000 ML IV SCH (06:15)
[2020-06-22 06:38] LABS: Appearance Urine Clear (Clear); Bacteria Urine Automated Negative (Negative); Bilirubin Urine Negative (Negative); Blood Urine 3+ (Negative); Color Urine Yellow; Epithelial Cell Urine Auto >30 /lpf (0-5); Glucose Urine UA 1+ (Negative); Ketones Urine Negative (Negative); Leukocyte Esterase Urine 1+ (Negative); Nitrite Urine Negative (Negative); Protein Urine 1+ (Negative); Specific Gravity Urine 1.014 (1.000-1.030); Urobilinogen Urine Negative (Negative); WBC Urine Automated >30 /hpf (0-5)
[2020-06-22 06:59] LABS: RBC Urine Automated >30 /hpf (0-4)
[2020-06-22] MEDS ORDERED: cefTRIAXone SODIUM 1,000 MG in DEXTROSE 5% 50 ML IV SCH (07:23)
[2020-06-22] MEDS ORDERED: GLUCAGON FOR INJ 1 MG VIAL SQ PRN (07:23)
[2020-06-22] MEDS ORDERED: GLUCOSE 40% GEL 15 GM TUBE PO PRN (07:23)
[2020-06-22] MEDS ORDERED: GLUCOSE 10 TABS/TUBE PO PRN (07:23)
[2020-06-22] MEDS ORDERED: DEXTROSE 50% 50 ML SYRINGE IV PRN (07:23)
[2020-06-22] MEDS ORDERED: CARBOHYDRATES FOR HYPOGLYCEMIA PO PRN (07:23)
--- NOTE | 2020-06-22 08:25 | CT Scan Report ---
ABDOMEN AND PELVIS CT WITHOUT CONTRAST CT DOSE: 1747.42 mGy.cm HISTORY: right flank pain TECHNIQUE: Multiaxial CT images of the abdomen and pelvis were performed without contrast. A dose lo wering technique was utilized adhering to the principles of ALARA. COMPARISON STUDY: Abdomen and pelvis CT 12/29/2019. FINDINGS: No pneumoperitoneum. No pneumatosis. Pacemaker wires are noted. No suspicious lytic or andrei tic osseous lesions. Cholelithiasis. The unenhanced liver, spleen, and adrenal glands are within norm al limits. Extensive calcifications within the pancreas consistent with chronic pancreatitis. No CT e vidence for acute pancreatitis. There are surgical clips adjacent to the pancreatic head. A few punct ate bilateral renal calculi. There is right perinephric edema with moderate right hydroureteronephros is to the level of the right ureterovesical junction. No obstructing stones identified. Moderate blad levar wall thickening with adjacent fat stranding is noted. No left-sided hydronephrosis. No retroperit harry lymphadenopathy. Moderate stool within the colon. Mild thickening of the ascending colon is lik serene due to underdistention. No dilated loops of small bowel to suggest an obstruction. Normal appendi x. IMPRESSION: 1. Moderate right hydroureteronephrosis to the level of the ureterovesical junction. No obstructing s tones identified. Therefore, this could be due to a recently passed stone, nonvisualized ureteral sto ne, or an occult obstructing lesion at the ureterovesical junction. Urology consultation recommended. 2. Bilateral nephrolithiasis. 3. Moderate thickening of the bladder which could be due to a cystitis. Recommend correlation with ur inalysis. 4. Cholelithiasis. 5. Questionable thickening of the ascending colon is likely due to underdistention. 6. Additional findings as described above. ACT 112: Negative or not required by law. Electronically signed by: Joseph Boston M.D. 06/22/2020 8:24 AM
[2020-06-22] MEDS: LEVOTHYROXINE SODIUM 88 MCG TABLET PO SCH (09:06)
[2020-06-22] MEDS: METOPROLOL TARTRATE 25 MG TAB PO SCH ×2 (09:06→20:08)
[2020-06-22] MEDS: GABAPENTIN 300 MG CAP PO SCH (09:06)
[2020-06-22] MEDS: AMLODIPINE BESYLATE 5 MG TAB PO SCH (09:07)
[2020-06-22] MEDS: PANTOprazole 40 MG TAB PO SCH (09:07)
[2020-06-22] MEDS: INSULIN GLARGINE SOLOSTAR 100 UNITS/ML 3 ML PEN SC SCH ×2 (09:07→20:50)
[2020-06-22] MEDS: CEROVITE ADV FORMULA TAB PO SCH (09:07)
[2020-06-22] MEDS: INSULIN ASPART 100 UNITS/ML 3 ML PEN SC SCH ×3 (09:08→18:46)
[2020-06-22] MEDS: cefTRIAXone SODIUM 2,000 MG in DEXTROSE 5% 50 ML IV SCH (09:28)
[2020-06-22] MEDS ORDERED: POLYETHYLENE (MIRALAX) 17 GM PACK PO PRN (10:00)
--- NOTE | 2020-06-22 10:15 | Nephrology Consultation ---
Date of Consultation June 22, 2020 Assessment & Plan (1) Acute renal failure: * JIMMY likely due to R ureteral obstruction and dehydration. Patient is not on TENNILLE/ARB or known nephrotoxic agents. Doubt AIN related to grapeseed extract - no rash. Electrolyte balance is acceptable. No acute indication for HD at this time * staffing operations manager reports > 400 cc PVR. Will order gomez catheter placement and check PSA * Await Urology input * Abdominal CT films reviewed: R hydroureteronephrosis seen. L kidney appears atrophic. Will order renal US for measurments * Patient is clinically volume contracted. Agree w/ IV hydration. Will change to Normosol solution * Recheck PRP at 3pm today and again in am (2) Chronic kidney disease, stage III (moderate): * Baseline Cr 2.0. Suspect underlying microvascular disease (3) Pyelonephritis: * Patient is currently afebrile, hemodynamically stable w/ mild leukocytosis but no significant L shift * Await urine culture results * Agree w/ empiric IV Ceftriaxone therapy. No dose adjustment needed for renal function (4) Hypertension: * Mild HTN. Continue amlodipine and metoprolol therapy History of Present Illness Reason for Consultation: JIMMY/CKD Attending Physician: Bharat Groves DO History of Present Illness Mr. Morales is a 74 year old white male who is seen at the request of Dr. Groves for evaluation of JIMMY/CKD. Medical records in the EMR were reviewed today and are summarized as follows: Mr. Morales has CKD w/ baseline Cr 2.0. He has not undergone Nephrology evaluation in the past. He has received his medical care through the [facility]. 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 He denies any h/o kidney stones, previous hospitalization for JIMMY. He denies the regular use of NSAIDS but does use grape seed extract and OTC MVI. Three weeks ago Mr. Morales developed symptoms suggestive of a UTI. He was treated w/ an antibiotic but does not recall the name or dose. Yesterday Mr. Morales developed severe R flank discomfort. He presented to the ED where his Cr was noted to have increased from 2.0 to 5.6, abdominal CT revealed R hydroureteronephrosis to the level of the bladder. No stone was seen. Urinalysis was + for blood and wbc's. Urine culture is pending. Patient has been started on IVF and Ceftriaxone therapy. Allergies Allergy/AdvReac Type Severity Reaction Status Date / Time ASPIRIN (IN DOSES LARGER AdvReac Intermediate N/V Uncoded 12/29/19 18:35 THAN 81MG) Home Medications Home Medications Medication Instructions Recorded Confirmed Type Creon 1 cap PO TIDM #0 05/22/15 06/22/20 History aspirin 81 mg PO QAM #0 05/22/15 06/22/20 History gabapentin 300 mg PO BID #0 05/22/15 06/22/20 History grape seed extract 100 mg PO QPM #0 05/22/15 06/22/20 History levothyroxine 88 mcg PO QAM #0 05/22/15 06/22/20 History multivitamin with minerals [Men's 1 tab PO DAILY #0 05/22/15 06/22/20 History One Daily] pantoprazole 40 mg PO QAM #0 05/22/15 06/22/20 History Lantus Solostar U-100 Insulin 30 unit SUBCUT HS #0 pen 05/05/18 06/22/20 History atorvastatin [Lipitor] 40 mg PO HS #0 tab 05/05/18 06/22/20 History hydrochlorothiazide 25 mg PO QAM #0 tab 05/05/18 06/22/20 History magnesium oxide 500 mg PO QAM #0 05/05/18 06/22/20 History metoprolol tartrate 25 mg PO BID 12/29/19 06/22/20 History amlodipine 10 mg PO DAILY 06/22/20 06/22/20 History hydralazine 10 mg PO BID 06/22/20 06/22/20 History Patient History Medical History Agent [place] poisoning Chronic pancreatitis GERD (gastroesophageal reflux disease) History of pacemaker Hyperlipidemia LDL goal <70 Hypertension Hypothyroidism (acquired) Insulin-requiring or dependent type II diabetes mellitus Morbid obesity Pancreatic insufficiency Peripheral neuropathy Surgical History History of permanent cardiac pacemaker placement Family History Other Family history non-contributory Social History Smoking Status: Current every day smoker Tobacco Type: Cigarettes Cigarettes Per Day: 20; Second Hand Exposure: No; Do You Dip or Chew Tobacco: No; Tobacco Cessation Education Requested by Patient: No Hx Alcohol Use: No Hx Substance Use: No Preferred Language: [place] Communication Ability: Effective Tax Associate Attorney Required: No Beliefs That Will Affect Care: None marital status: Current Living Situation: Spouse Other Information That Helps Us Care for You: No Feels Safe at Home: Yes Safety Concerns: Feels Safe At This Time Review of Systems Constitutional: no fever Eyes: no problem reported Ear, Nose, Mouth, Throat: no problem reported Respiratory: no cough and no dyspnea Cardiovascular: no chest pain and no edema Gastrointestinal: no abdominal pain, no nausea, no vomiting and no diarrhea/loose stools Genitourinary: + dysuria and + urinary hesitancy Musculoskeletal: + back pain Integumentary: no rash Neurologic: no dizziness and no confusion Physical Exam Constitutional: not in distress Eyes: PERRL, conjunctivae normal, anicteric sclerae ENMT: external ear and nose normal, oropharynx normal Neck: trachea midline, no thyromegaly Respiratory: normal respiratory effort; no respiratory distress Auscultation: + wheezes Cardiovascular: RRR, no murmur, no edema Gastrointestinal (Abdomen): Inspection/Auscultation: + hypoactive bowel sounds Percussion/Palpation: abdomen soft; abdomen nontender Musculoskeletal: Extremities: no cyanosis Skin: no rashes, warm and dry + turgor decreased Neurologic: awake; not confused Results & Data ([facility]) Vital Signs (Past 12 Hours) Vital Signs Temp Pulse Pulse Resp BP BP Pulse Ox 06/22/20 07:31 64 06/22/20 07:23 36.5 C 60 18 175/85 H 93 06/22/20 06:42 72 20 93 06/22/20 06:21 70 18 183/90 H 93 06/22/20 05:28 60 20 163/124 H 93 06/22/20 03:58 36.9 C 60 20 166/70 H 93 Laboratory Results Laboratory Tests 12/30/19 06/22/2006/22/20 07:22 03:56 03:56 WBC 14.03 H Hgb 12.5 L Hct 38.7 L Plt Count 225 Sodium 141 Potassium Chloride 113 H Carbon Dioxide 19 L BUN 77 H Creatinine 1.99 H D 5.29 H* Glucose 104 H Calcium 6.6 L Albumin 2.6 L Urine Color Urine Appearance Urine pH Ur Specific [place] Urine Protein Urine Glucose (UA) Urine Blood Urine Nitrite Urine WBC (Auto) Urine RBC (Auto) 06/22/20 06/22/20 05:05 05:26 WBC Hgb Hct Plt Count Sodium Potassium 4.7 Chloride Carbon Dioxide BUN Creatinine Glucose Calcium Albumin Urine Color Yellow Urine Appearance Clear Urine pH 5.0 Ur Specific [place] 1.014 Urine Protein 1+ H Urine Glucose (UA) 1+ H Urine Blood 3+ H Urine Nitrite Negative Urine WBC (Auto) >30 H Urine RBC (Auto) >30 H PG Care Time/CCT Total # of Minutes Spent Total Time Spent with Patient: Total time spent is greater than 50% in coordination of care (as documented) at patient's floor/unit and/or counseling patient: Coding Level of Care Code 25990 Inpt Consult Level 5 Diagnoses Acute renal failure N17.9 Chronic kidney disease, stage III (moderate) N18.3 Pyelonephritis N12 Hypertension I10
[2020-06-22] MEDS: ACETAMINOPHEN 325 MG TAB PO PRN (10:47)
[2020-06-22] MEDS: NORMOSOL-R 1,000 ML IV SCH ×2 (12:08→20:02)
--- NOTE | 2020-06-22 12:46 | Hospitalist Progress Note ---
Date of Service June 22, 2020 Assessment & Plan (1) Acute renal failure: Isaak is a 74-year-old male with a past medical history of CKD, type 2 diabetes on insulin, hypertension, GERD, pancreatic insufficiency, history of an STEMI with preserved ejection fraction, and agent orange exposure who presents with 1 week of UTI symptoms and 12 hours of anuria. Acute renal failure, obstructive uropathy, prerenal /dehydration component, UTI - most likely secondary to obstruction with findings of circumferential cystitis and ureteronephrosis - suspect possible pre-renal component secondary to inadequate PO intake prior to hospitalization - most likely elements of both - not septic so doubt infection plays a direct role improvement after gomez suggests BPH may be a large contributor as well - ongoing ceftriaxone, supportive care, follow cultures Circumferential bladder thickening most likely chronic from BPH and acute from infection - but with asymmetric obstruction and high risk exposures, concern on malignancy as well - follow clinically, anticipate cysto at some point in near to subacute future depending on his clinical progress Coronary artery disease Last echo with preserved EF of 60% Continue amlodipine, aspirin, atorvastatin, metoprolol Patient hypertensive on admission, hold antihypertensives if systolic pressure falls below 100 systolic Type 2 diabetes mellitus with neuropathy follow glucoses, adjust basal bolus insulin BMP daily Hold oral anti-glycemic's Pancreatic insufficiency, chronic Continue Creon 1 P.o. 3 times daily with meals GERD Continue Protonix 40 mg p.o. daily Hypothyroidism Continue Synthroid 88 mcg daily FEN: As above DVT prophylaxis: SCDs, pharmacal prophylaxis held pending potential procedure evaluation CODE STATUS: Full code Disposition: Med telemetry (2) Chronic pancreatitis: (3) Elevated troponin: (4) Insulin-requiring or dependent type II diabetes mellitus: (5) Hypertension: (6) Hyperlipidemia LDL goal <70: (7) GERD (gastroesophageal reflux disease): (8) Pancreatic insufficiency: (9) Pyelonephritis: Admission and Anticipated Discharge Date Admission Date: June 22, 2020 Supervising Physician Co-Signing Physician Notes I personally examined the patient and verified all vargas points of history and exam, discussed case, and agree with decision making with Dr Marie Subjective seen in f/u from early AM range management specialist input appreciated feeling better when seen this evening. notes that around the time ogmez went in he started feeling pretty significantly better. hungry. Review of Systems Review of Systems: All systems reviewed & are unremarkable except as noted in HPI & below Physical Exam Physical Exam: gen aao pleasant nad heent nc at mmm breathing unlabored no accessory muscles good effort skin no rashes no pallor or icterus Results & Data Results & [facility] ([facility]) Vital Signs (Past 12 Hours) Vital Signs Temp Pulse Pulse Pulse Resp BP BP 06/22/20 11:19 36.8 C 60 18 164/73 H 06/22/20 07:31 64 06/22/20 07:23 36.5 C 60 18 175/85 H 06/22/20 06:42 72 20 06/22/20 06:21 70 18 183/90 H 06/22/20 05:28 60 20 163/124 H 06/22/20 03:58 36.9 C 60 20 166/70 H Pulse Ox 06/22/20 11:19 94 06/22/20 07:31 06/22/20 07:23 93 06/22/20 06:42 93 06/22/20 06:21 93 06/22/20 05:28 93 06/22/20 03:58 93
--- NOTE | 2020-06-22 14:34 | Ultrasound Report ---
US renal/blad retro comp HISTORY: 74 years-old Male JIMMY acute kidney injury COMPARISON: CT abdomen and pelvis 06/22/2020 TECHNIQUE: Multiple real-time sonographic images of the kidneys and urinary bladder were obtained ass essing grayscale appearance and color flow FINDINGS: The right kidney measures 10.6 cm in length and demonstrates mild diffuse cortical thinning. There ar e a few tiny nonobstructing right renal calculi redemonstrated measuring up to approximately 2-3 mm. Moderate right-sided hydronephrosis. Tyler catheter is noted within a decompressed or bladder. The left kidney measures 9.4 cm in length and demonstrates mild diffuse cortical thinning. There are a few tiny calcifications of the left kidney. No left-sided hydronephrosis. IMPRESSION: 1. Persistent moderate right-sided hydronephrosis. 2. Right nephrolithiasis. ACT 112: Negative or not required by law. The above report was generated using voice recognition software. It may contain grammatical, syntax o r spelling errors. Electronically signed by: Michael Truong M.D. 06/22/2020 2:33 PM
[2020-06-22 15:33] LABS: BUN Creatinine Ratio 14.7 (10-20); Calcium 7.9 mg/dl (8.5-10.1); Creatinine Clr Calc Pharmacy 17.1 ml/min; Est GFR (African American) 12.2; Est GFR (Non-African American) 10.5; Potassium 4.6 mmol/L (3.5-5.1); Prostate Specific Antigen 2.16 ng/ml (0-4)
--- NOTE | 2020-06-22 16:13 | Consultation Report ---
DATE OF CONSULTATION: 06/22/2020 REASON FOR THE CONSULT: Acute renal failure, right hydronephrosis and acute urinary retention. HISTORY OF PRESENTATION: The patient is a 74-year-old male with a history of chronic elevated renal failure who has been having urinary tract symptoms for over a year when he has had frequency and urgency, but a month ago, the symptoms became worse with dysuria. He had frequent urination, was given antibiotics and then all of a sudden last night, he was unable to go and developed flank pain. He came to the hospital and had a creatinine that had gone from the 1.7-2 range to 5.29 with hydronephrosis on the right side and a somewhat smaller kidney on the left side. He also had on CAT scan a full bladder and some thickening of the bladder wall, but no obvious mass. The patient does have a long pack year smoking history and exposed to Agent [place]. The patient has no history of gross hematuria. Again, no discrete mass was seen in the bladder. The patient also has other medical problems including coronary artery disease. He takes amlodipine, atorvastatin and metoprolol. He also has type 2 diabetes with neuropathy, pancreatic insufficiency - chronic, GERD, hypothyroidism. The patient again noted 3-4 weeks of intense burning with urination prior to coming in and since the catheter was placed, he does have some burning, but his right flank pain has resolved. He is making a significant amount of urine when I saw him, he had over 600 mL in his bag and again it was estimated that he had 400 mL on bladder scan prior to catheterization. The patient normally gets his care at the [facility] including what appears to be a nephrology consult that is pending. SOCIAL HISTORY: Significant for long history of tobacco use. No alcohol use, no recreational drugs. He is . ALLERGIES: THE PATIENT HAS AN ALLERGY TO ASPIRIN. HOME MEDICINES: Please refer to the history and physical and admitting diagnosis to review these meds and their dosages. PAST MEDICAL HISTORY: As previously discussed. He has a history of a permanent pacemaker. Also, of note, he does have some limited capacity to ambulate, needs a walker or a cane. REVIEW OF SYSTEMS: All systems reviewed and unremarkable except for what was mentioned previously in the history and physical and below. PHYSICAL EXAMINATION: GENERAL: The patient is a well-developed male in minimal distress. HEENT: He does have very dry mucous membranes. Otherwise, HEENT is unremarkable. PULMONARY: He has no respiratory distress. CARDIAC: He does have significant pedal edema, 1-2+ pitting edema bilaterally. SKIN: Otherwise is dry without obvious rash. LYMPHATICS: No obvious lymphadenopathy felt. ABDOMEN: Nontender. There is no CVA tenderness when I examined him. EXTREMITIES: Warm. He does have some decreased range of motion in his lower extremities and it is unclear what this is from. NEUROLOGIC: He is alert and oriented and responsive. Cranial nerves seem grossly intact. PSYCHIATRIC: The patient has normal mood and affect. GENITOURINARY: The patient has a normal uncircumcised male phallus with Tyler catheter in place. Testes are descended bilaterally without obvious mass. Prostate was examined and is at least 50 grams, but no nodularity or induration was palpated. ASSESSMENT AND PLAN: The patient appears to have been in retention and placing the catheter has resolved his flank pain. There may well be an element of bladder outlet obstruction causing the patient's elevated creatinine, so plan on following his creatinine. Would hydrate him as he seems to be dehydrated as long as his creatinine appears to be dropping and his urine output appears to be steady. He does eventually need a cystoscopy. I do believe he is in acute retention. We will order a PSA as a baseline. He may have an acute prostatitis, although he does not have fever. If his creatinine does not seem to decline, he may need to have a right stent placed, although again his flank pain has resolved and he is making urine. There is no obvious on CAT scan point of obstruction and the ureter appears to be dilated all the way down to the bladder. Again, at some point, whether in this admission or as an outpatient, the patient will need a cystoscopy and he will need a stent potentially if his creatinine does not decline. I have told the resident who is following the patient that the patient could eat if his creatinine declines tonight and make him n.p.o. after midnight for reevaluation. We will continue to follow the patient clinically to decide when he needs to be scoped and whether he will need a stent.
[2020-06-22] MEDS: ATORVASTATIN 40 MG TAB PO SCH (20:08)
[2020-06-23] MEDS: INSULIN ASPART 100 UNITS/ML 3 ML PEN SC SCH ×4 (00:11→17:57)
[2020-06-23] MEDS: NORMOSOL-R 1,000 ML IV SCH ×2 (04:04→14:17)
--- NOTE | 2020-06-23 04:47 | Billing Data ---
Date of Service June 23, 2020 Coding Level of Care Code 38418 Initial Inpt Care Lvl 3
[2020-06-23] MEDS: LEVOTHYROXINE SODIUM 88 MCG TABLET PO SCH (05:55)
[2020-06-23 07:28] LABS: Basophils # (auto) 0.02 K/uL (0-0.2); Basophils % (auto) 0.2 %; Eosinophils # (auto) 0.16 K/uL (0-0.5); Eosinophils % (auto) 1.5 %; Hemoglobin 11.7 g/dL (14.0-18.0); Immature Granulocytes # (auto) 0.03 K/uL (0.00-0.02); Immature Granulocytes % (auto) 0.3 %; Lymphocytes # (auto) 1.28 K/uL (1.2-3.4); Lymphocytes % (auto) 12.4 %; Mean Corpuscular Hgb Conc 31.6 g/dL (32-36); Mean Corpuscular Volume 94.9 fL (80-100); Mean Platelet Volume 9.8 fL (7.4-10.4); Monocytes # (auto) 0.95 K/uL (0.11-0.59); Monocytes % (auto) 9.2 %; Neutrophils # (auto) 7.91 K/uL (1.4-6.5); Neutrophils % (auto) 76.4 %; Platelet Count 190 K/uL (130-400); White Blood Count 10.35 K/uL (4.8-10.8)
[2020-06-23 08:17] LABS: Albumin Globulin Ratio 0.6 (0.9-2); Albumin Level 2.4 gm/dl (3.4-5.0); BUN Creatinine Ratio 14.8 (10-20); Bilirubin,Total 0.3 mg/dl (0.2-1); Calcium 7.4 mg/dl (8.5-10.1); Creatinine Clr Calc Pharmacy 17.1 ml/min; Est GFR (African American) 12.1; Est GFR (Non-African American) 10.4; Potassium 4.5 mmol/L (3.5-5.1); Total Protein 6.4 gm/dl (6.4-8.2)
[2020-06-23] MEDS: cefTRIAXone SODIUM 2,000 MG in DEXTROSE 5% 50 ML IV SCH (08:57)
--- NOTE | 2020-06-23 09:29 | Nephrology Progress Note ---
Date of Service June 23, 2020 Assessment & Plan (1) Acute renal failure: * JIMMY likely due to R ureteral obstruction and dehydration. Patient is not on TENNILLE/ARB or known nephrotoxic agents. Doubt AIN related to grapeseed extract - no rash. Electrolyte balance is acceptable. No acute indication for HD at this time * Tyler catheter inserted yesterday afternoon. Patient is nonoliguric. PSA wnl * Abdominal CT films reviewed: R hydroureteronephrosis seen. L kidney appears atrophic * Renal US 06/22: R 10.6, L 9.4. Diffuse cortical thinning bilaterally. Moderate R hydronephrosis. Tyler catheter in place. Small nonobstructing renal calculi in both kidneys * Patient remains clinically volume contracted. Continue IV hydration * Monitor PRP * Await Urology input (2) Chronic kidney disease, stage III (moderate): * Baseline Cr 2.0. Suspect underlying microvascular disease (3) Pyelonephritis: * Patient remains afebrile, hemodynamically stable w/ mild leukocytosis but no significant L shift * Await urine culture results * Continue empiric IV Ceftriaxone therapy. No dose adjustment needed for renal function (4) Hypertension: * Mild HTN. Continue amlodipine and metoprolol therapy Admission and Anticipated Discharge Date Admission Date: June 22, 2020 Subjective Mr. Morales was seen & examined in his hospital room this morning. He continues to have intermittent R flank pain. He denies gross hematuria. Tyler catheter was inserted yesterday. UO 2250 overnight Review of Systems Constitutional: no fever Eyes: no problem reported Ear, Nose, Mouth, Throat: no problem reported Respiratory: no cough and no dyspnea Cardiovascular: no chest pain and no edema Gastrointestinal: no abdominal pain and no diarrhea/loose stools Musculoskeletal: + back pain Integumentary: no rash Neurologic: no dizziness Physical Exam Constitutional: not in distress Eyes: PERRL, conjunctivae normal, anicteric sclerae ENMT: external ear and nose normal, oropharynx normal Neck: trachea midline, no thyromegaly Respiratory: normal respiratory effort; no respiratory distress Auscultation: + wheezes Cardiovascular: RRR, no murmur, no edema Gastrointestinal (Abdomen): Inspection/Auscultation: + hypoactive bowel sounds Percussion/Palpation: abdomen soft; abdomen nontender Musculoskeletal: Extremities: no cyanosis Skin: no rashes, warm and dry + turgor decreased Neurologic: awake; not confused Results & Data ([facility]) Vital Signs (Past 12 Hours) Vital Signs Temp Pulse Pulse Resp BP Pulse Ox 06/23/20 07:00 37.1 C 60 20 165/68 H 92 06/23/20 04:17 37.1 C 65 20 172/79 H 93 06/22/20 22:54 37.1 C 60 20 162/75 H 93 06/22/20 22:20 60 Laboratory Results Laboratory Tests 06/22/20 06/23/20 06/23/20 14:55 07:15 07:15 WBC 10.35 Hgb 11.7 L Hct 37.0 L Plt Count 190 Sodium 142 Potassium 4.5 Chloride 112 H Carbon Dioxide 20 L BUN 76 H Creatinine 5.11 H* Glucose 80 Albumin 2.4 L Prostate Specific Ag 2.160 PG Care Time/CCT Total # of Minutes Spent Total Time Spent with Patient: Total time spent is greater than 50% in coordination of care (as documented) at patient's floor/unit and/or counseling patient: Coding Level of Care Code 07438 Subseq Hosp Care Lvl 3 Diagnoses Acute renal failure N17.9 Chronic kidney disease, stage III (moderate) N18.3 Pyelonephritis N12 Hypertension I10
[2020-06-23] MEDS: CEROVITE ADV FORMULA TAB PO SCH (09:45)
[2020-06-23] MEDS: INSULIN GLARGINE SOLOSTAR 100 UNITS/ML 3 ML PEN SC SCH ×2 (09:45→20:16)
[2020-06-23] MEDS: METOPROLOL TARTRATE 25 MG TAB PO SCH ×2 (09:45→20:12)
[2020-06-23] MEDS: GABAPENTIN 300 MG CAP PO SCH (09:46)
[2020-06-23] MEDS: PANTOprazole 40 MG TAB PO SCH (09:46)
[2020-06-23] MEDS: AMLODIPINE BESYLATE 5 MG TAB PO SCH (09:46)
[2020-06-23 11:17] LABS: Appearance Urine Clear (Clear); Bacteria Urine Automated Negative (Negative); Bilirubin Urine Negative (Negative); Blood Urine 2+ (Negative); Color Urine Yellow; Glucose Urine UA Negative (Negative); Ketones Urine Negative (Negative); Leukocyte Esterase Urine 1+ (Negative); Nitrite Urine Negative (Negative); Protein Urine 1+ (Negative); Specific Gravity Urine 1.013 (1.000-1.030); Urobilinogen Urine Negative (Negative)
[2020-06-23 11:52] LABS: Protein Creatinine Ratio Urine 0.9 (0-0.2); Total Protein Urine Random 37.6 mg/dl (0-11.9)
[2020-06-23 12:10] LABS: Estimated Average Glucose 200 mg/dl; Hemoglobin A1C 8.6 % (4.5-5.6)
--- NOTE | 2020-06-23 13:23 | Hospitalist Progress Note ---
Date of Service June 23, 2020 Assessment & Plan (1) Acute renal failure: (1) Acute renal failure: Mr. Morales is a 74-year-old male with a past medical history of CKD, type 2 diabetes on insulin, hypertension, GERD, pancreatic insufficiency, history of an STEMI with preserved ejection fraction, and agent orange exposure who presents with 1 week of UTI symptoms and 12 hours of anuria. Acute renal failure, obstructive uropathy, prerenal /dehydration component, UTI - most likely secondary to obstruction with findings of circumferential cystitis and ureteronephrosis - suspect possible pre-renal component secondary to inadequate PO intake prior to hospitalization - also possible post-dehydration intrinsic injury via ATN - most likely elements of all three - not septic so doubt infection plays a direct role improvement after gomez suggested BPH may have played a role but PSA 2.16 on 06/22 -initial Urine cx showed minimal colony growth - continue ceftriaxone 2g IV for procedural ppx, likely can d/c tomorrow - continue IVFs Normosol 125cc/hr - trend BMP daily Circumferential bladder thickening most likely chronic from BPH and acute from infection - but with asymmetric obstruction and high risk exposures, concern on malignancy as well - cystoscopy scheduled this afternoon with Urology Coronary artery disease Last echo with preserved EF of 60% Continue amlodipine, aspirin, atorvastatin, metoprolol Patient hypertensive on admission, hold antihypertensives if systolic pressure falls below 100 systolic Type 2 diabetes mellitus with neuropathy follow glucoses, adjust basal bolus insulin BMP daily Hold oral anti-glycemic's HTN - Continue amlodipine and metoprolol therapy Pancreatic insufficiency, chronic Continue Creon 1 P.o. 3 times daily with meals GERD Continue Protonix 40 mg p.o. daily Hypothyroidism Continue Synthroid 88 mcg daily FEN/GI: NPO for Cystoscopy, Normosol@125cc/hr DVT prophylaxis: SCDs, pharmacal prophylaxis held pending potential procedure evaluation CODE STATUS: Full code Disposition: Med telemetry (2) Chronic pancreatitis: (3) Elevated troponin: (4) Insulin-requiring or dependent type II diabetes mellitus: (5) Hypertension: (6) Hyperlipidemia LDL goal <70: (7) GERD (gastroesophageal reflux disease): (8) Pancreatic insufficiency: (9) Pyelonephritis: Admission and Anticipated Discharge Date Admission Date: June 22, 2020 Supervising Physician Co-Signing Physician Notes I personally examined the patient and verified all vargas points of history and exam, discussed case, and agree with decision making with Dr Marie. feeling ok except hungry. as we're tlaking about his situation, urology enters and is going to take him for procedure updated to the best of my ability and to his satisfaction vitals noted nad heent nc at mmm breathing unlabored no accessory muscles good effort ARF - concern multifactorial - plenty of evidence for obstructive (improved UO after gomez, R hydro, concern on mass) but also prerenal and/or ATN (appearing quite dry, etc) -- continue fluids, await cysto findings initial concern on infectious as well - but seeming less likely as culture not showing growth. will want to continue abx for procedural proph, but after that, may be able to dc otherwise as above Subjective No acute events overnight. Only concern today is eating something as he is hungry - understands that he will be able to eat after upcoming cystoscopy. Adequate urine output at 0.94 mL/kg/hr - catheter in place and tolerating well. Review of Systems Constitutional: no fever and no chills Respiratory: no cough and no dyspnea Cardiovascular: no chest pain and no palpitations Gastrointestinal: no abdominal pain Genitourinary: + flank pain (mild intermittent); no dysuria Physical Exam Constitutional: WD/WN, vitals as above no acute distress Neck: normal visual inspection Respiratory: no respiratory distress and no labored breathing Auscultation: + wheezes (faint expiratory wheezes bilaterally) Cardiovascular: Rate/Rhythm: regular rate and regular rhythm Heart Sounds: no murmur Extremities: + edema (1+ pitting edema in ankles bilaterally) Musculoskeletal: no cyanosis or clubbing, extremities motor strength 5/5 Psychiatric: A+Ox3, euthymic affect Results & Data Results & Data ([facility]) Vital Signs (Past 12 Hours) Vital Signs Temp Pulse Resp BP Pulse Ox 06/23/20 11:26 37.2 C 60 18 151/64 H 89 L 06/23/20 07:00 37.1 C 60 20 165/68 H 92 06/23/20 04:17 37.1 C 65 20 172/79 H 93 CBC Results Results Complete Blood Count Results: RBC 3.90 M/uL (4.7-6.1) L 06/23/20 WBC 10.35 K/uL (4.8-10.8) 06/23/20 Hgb 11.7 g/dL (14.0-18.0) L 06/23/20 Hct 37.0 % (42-52) L 06/23/20 Plt Count 190 K/uL (130-400) 06/23/20 Chemistry ([facility]) Results [facility] Results: Sodium 143 mmol/L (136-145) 06/23/20 Potassium 4.5 mmol/L (3.5-5.1) 06/23/20 Chloride 113 mmol/L (98-107) H 06/23/20 BUN 76 mg/dl (7-18) H 06/23/20 Creatinine 5.03 mg/dl (0.6-1.4) H* 06/23/20 Glucose 58 mg/dl (70-99) L 06/23/20 Resident Activity Tracking Resident Involvement: Resident Care Provided Care Provided: Adult [facility]
[2020-06-23 15:10] LABS: BUN Creatinine Ratio 15.2 (10-20); Calcium 7.6 mg/dl (8.5-10.1); Creatinine Clr Calc Pharmacy 17.3 ml/min; Est GFR (African American) 12.3; Est GFR (Non-African American) 10.6; Potassium 4.5 mmol/L (3.5-5.1)
--- NOTE | 2020-06-23 15:36 | Urology Progress Note ---
Date of Service June 23, 2020 Assessment & Plan (1) Acute renal failure: acute on chronic renal failure - Cr 5.0 with moderate hydronephrosis on the right and a moderately atrophic kidney on the left - give the lack of improvement with catheter placement, I have recommended cysto, Right ureteral stent placement - risks, benefits, expectations discussed - plan for OR now Admission and Anticipated Discharge Date Admission Date: June 22, 2020 Subjective subjectively feels ok making urine - catheter in place tolerating the catheter well unfortunately, his Cr has not improved since admission despite catheter placement persistent R hydro on US Review of Systems Review of Systems: All systems reviewed & are unremarkable except as noted in HPI & below Physical Exam Constitutional: well developed and well nourished Neck: neck nontender Respiratory: normal respiratory effort; no respiratory distress and does not use accessory muscles Cardiovascular: Rate/Rhythm: regular rate Vessels: radial pulses present Extremities: no edema Gastrointestinal (Abdomen): Inspection/Auscultation: abdomen normal to inspection Percussion/Palpation: abdomen soft; abdomen nontender and no guarding Musculoskeletal: Head/Neck/Chest: normocephalic and head atraumatic Extremities: extremities normal to inspection Skin: no rashes and no lesions Trauma: no evidence of skin trauma Neurologic: awake; not obtunded Speech / Cognition: normal speech Motor/Sensory: no tremor Psychiatric: Orientation: alert and oriented x 3 Genitourinary: no CVA tenderness Lymphatic: no lymphadenopathy Results & Data ([facility]) Vital Signs (Past 12 Hours) Vital Signs Temp Pulse Resp BP Pulse Ox 06/23/20 11:26 37.2 C 60 18 151/64 H 89 L 06/23/20 07:00 37.1 C 60 20 165/68 H 92 06/23/20 04:17 37.1 C 65 20 172/79 H 93 PG Care Time/CCT Total # of Minutes Spent Total Time Spent with Patient: Total time spent is greater than 50% in coordination of care (as documented) at patient's floor/unit and/or counseling patient: Coding Level of Care Code 79940 Subseq Hosp Care Lvl 2 Diagnoses Acute renal failure N17.9
[2020-06-23] MEDS ORDERED: LIDOCAINE HCL 2% 2 ML VIAL/AMP(20MG/ML) INFIL ONE (15:51)
[2020-06-23] MEDS ORDERED: fentaNYL citrate 100 MCG/2 ML VIAL ONE (15:51)
[2020-06-23] MEDS ORDERED: PROPOFOL IV EMULSION 10 MG/ML 20 ML VIAL IV ONE ×3 (15:51→17:14)
[2020-06-23] MEDS ORDERED: MIDAZOLAM HCL 1 MG/ML 2ML VIAL ONE (15:52)
[2020-06-23] MEDS ORDERED: PHENYLEPHRINE 100MCG/ML 5ML SYR IV PRN (15:56)
[2020-06-23] MEDS ORDERED: fentaNYL citrate 100 MCG/2 ML VIAL IV PRN (15:56)
[2020-06-23] MEDS ORDERED: ATROPINE SULFATE 0.1 MG/ML 10ML SYR IV PRN (15:56)
[2020-06-23] MEDS ORDERED: ePHEDrine sulfate 50 MG/ML AMP IV PRN (15:56)
[2020-06-23] MEDS ORDERED: ONDANSETRON INJ 2 MG/ML 2 ML VIAL IV PRN (15:56)
[2020-06-23] MEDS ORDERED: LABETALOL HCL IV 5 MG/ML 20ML IV PRN (15:56)
[2020-06-23] MEDS ORDERED: MEPERIDINE HCL 25 MG/ML CARP/VIAL IV PRN (15:56)
[2020-06-23] MEDS ORDERED: HYDROmorphone INJ 1 MG/ML SYRINGE IV PRN (15:56)
--- NOTE | 2020-06-23 16:07 | Anesthesiology Consultation ---
Date of Service June 23, 2020 The patient has not been tested for Covid 19. Assessment & Plan (1) Encounter for pre-operative examination: Chart Review Chart Review: Acceptable Risk for Surgery and Patient NOT seen in Pre Admission Testing Consults Requested none History Surgery Operation Date: 06/23/20 15:30 Proposed Procedures p Cystoscopy, Right Stent Placement - Jacinto Ordonez MD Height/Weight Height: 5 ft 10 in Weight: 121.5 kg Allergies Allergy/AdvReac Type Severity Reaction Status Date / Time ASPIRIN (IN DOSES LARGER AdvReac Intermediate N/V Uncoded 12/29/19 18:35 THAN 81MG) Medications Home Medications Medication Instructions Recorded Confirmed Last Taken Creon 1 cap PO TIDM #0 05/22/15 06/22/20 12/29/19 aspirin 81 mg PO QAM #0 05/22/15 06/22/20 12/29/19 gabapentin 300 mg PO BID #0 05/22/15 06/22/20 12/29/19 grape seed extract 100 mg PO QPM #0 05/22/15 06/22/20 12/28/19 levothyroxine 88 mcg PO QAM #0 05/22/15 06/22/20 12/28/19 multivitamin with minerals [Men's 1 tab PO DAILY #0 05/22/15 06/22/20 Unknown One Daily] pantoprazole 40 mg PO QAM #0 05/22/15 06/22/20 12/29/19 Lantus Solostar U-100 Insulin 30 unit SUBCUT HS #0 pen 05/05/18 06/22/20 12/28/19 atorvastatin [Lipitor] 40 mg PO HS #0 tab 05/05/18 06/22/20 12/28/19 hydrochlorothiazide 25 mg PO QAM #0 tab 05/05/18 06/22/20 12/29/19 magnesium oxide 500 mg PO QAM #0 05/05/18 06/22/20 12/29/19 metoprolol tartrate 25 mg PO BID 12/29/19 06/22/20 12/29/19 amlodipine 10 mg PO DAILY 06/22/20 06/22/20 Unknown hydralazine 10 mg PO BID 06/22/20 06/22/20 Unknown Active Medications Generic Name Dose Route Start Last Admin Trade Name Freq PRN Reason Stop Dose Admin Acetaminophen 650 mg 06/22/20 07:23 06/22/20 10:47 Acetaminophen 325 Mg Tab PO 07/22/20 07:22 650 mg Q4H PRN Administration Pain or Fever Amlodipine Besylate 10 mg 06/22/20 09:00 06/23/20 09:46 Amlodipine Besylate 5 Mg Tab PO 07/22/20 08:59 Not Given DAILY LAW Atorvastatin Calcium 40 mg 06/22/20 21:00 06/22/20 20:08 Atorvastatin 40 Mg Tab PO 07/22/20 20:59 40 mg HS LWA Administration Dextrose 25 - 50 ml 06/22/20 07:23 06/23/20 12:01 Dextrose 50% 50 Ml Syringe IV 07/22/20 07:22 25 ml UD PRN Administration Hypoglycemia Protocol Protocol Gabapentin 300 mg 06/22/20 09:00 06/23/20 09:46 Gabapentin 300 Mg Cap PO 07/22/20 08:59 Not Given QAM LAW Protocol Ceftriaxone Sodium 2,000 mg/ 70 mls @ 140 mls/hr 06/22/20 08:00 06/23/20 09:46 Dextrose IV 07/02/20 07:59 Infused Q24H LAW Infusion Parenteral Electrolytes 1,000 mls @ 125 mls/hr 06/22/20 10:05 06/23/20 14:17 Normosol-R IV 07/22/20 10:04 125 mls/hr .Q8H LAW Administration Insulin Aspart 0 units 06/22/20 07:30 06/23/20 12:26 Insulin Aspart 100 Units/Ml 3 Ml Pen SC 07/22/20 07:29 Not Given Q6 LAW Insulin Glargine 11 units 06/22/20 09:00 06/23/20 09:45 Insulin Glargine Solostar 100 Units/Ml 3 Ml Pen SC 07/22/20 08:59 Not Given BID LAW Levothyroxine Sodium 88 mcg 06/22/20 08:00 06/23/20 05:55 Levothyroxine Sodium 88 Mcg Tablet PO 07/22/20 07:59 88 mcg DAILYBB LAW Administration Metoprolol Tartrate 25 mg 06/22/20 09:00 06/23/20 09:45 Metoprolol Tartrate 25 Mg Tab PO 07/22/20 08:59 Not Given BID LAW Miscellaneous 15 - 30 gm 06/22/20 07:23 06/23/20 06:30 Carbohydrates For Hypoglycemia PO 07/22/20 07:22 15 gm UD PRN Administration Hypoglycemia Protocol Multivitamins/Minerals 1 tab 06/22/20 09:00 06/23/20 09:45 Cerovite Adv Formula Tab PO 07/22/20 08:59 Not Given DAILY LAW Pantoprazole Sodium 40 mg 06/22/20 09:00 06/23/20 09:46 Pantoprazole 40 Mg Tab PO 07/22/20 08:59 Not Given QAM LAW NPO Date Last Intake of Fluids: 06/23/20 Time Last Intake of Fluids: 00:00 Past Medical History Medical History Agent [place] poisoning Chronic pancreatitis GERD (gastroesophageal reflux disease) History of pacemaker Hyperlipidemia LDL goal <70 Hypertension Hypothyroidism (acquired) Insulin-requiring or dependent type II diabetes mellitus Morbid obesity Pancreatic insufficiency Peripheral neuropathy Smoker Past Family History Family History Other Family history non-contributory Past Surgical History Surgical History History of permanent cardiac pacemaker placement Social History Smoking Status: Current every day smoker tobacco type: cigarettes Smoking cigarettes per day: 20 Do You Dip or Chew Tobacco: No Hx Alcohol Use: No Hx Substance Use: No substance use type: does not use Physical Exam Vital Signs Last Vital Signs Temp 37.2 C 06/23/20 15:44 Pulse 60 06/23/20 15:44 Resp 18 06/23/20 15:44 BP 185/77 H 06/23/20 15:44 Pulse Ox 90 06/23/20 15:44 Testing Laboratory Results 06/23/20 07:15 06/23/20 14:23 Hemoglobin A1c 8.6 % (4.5-5.6) H 06/23/20 07:15 Urine Color Yellow 06/23/20 10:45 Urine Appearance Clear (Clear) 06/23/20 10:45 Urine pH 5.0 (4.5-7.5) 06/23/20 10:45 Ur Specific [place] 1.013 (1.000-1.030) 06/23/20 10:45 Urine Protein 1+ (Negative) H 06/23/20 10:45 Urine Glucose (UA) Negative (Negative) 06/23/20 10:45 Urine Ketones Negative (Negative) 06/23/20 10:45 Urine Nitrite Negative (Negative) 06/23/20 10:45 Ur Leukocyte Esterase 1+ (Negative) H 06/23/20 10:45 Urine WBC (Auto) 10-30 /hpf (0-5) H 06/23/20 10:45 Urine RBC (Auto) 10-30 /hpf (0-4) H 06/23/20 10:45 U Hyaline Cast (Auto) 1-5 /lpf (0-5) 06/23/20 10:45 U Epithel Cells (Auto) 10-20 /lpf (0-5) H 06/23/20 10:45 Urine Bacteria (Auto) Negative (Negative) 06/23/20 10:45 06/22/20 05:26 Urine Culture - Preliminary Urine,Straight Cath No growth - Less than 1,000 colonies/mL, Final report to follow. 06/23/20 06/23/20 06/23/20 12:19 11:55 11:54 POC Glucose 90 62 L* 59 L* 06/23/20 06/23/20 06/23/20 06:48 06:27 06:25 POC Glucose 85 64 L* 66 L* Electrocardiogram Date: 12/30/19 AV dual paced, rate of 60 Echocardiogram Date: 12/30/19 EF: 50 LV Function: low normal Other Findings: + LVH (moderate assymetric)
[2020-06-23] MEDS ORDERED: MELATONIN 3 MG TAB PO PRN (16:23)
[2020-06-23] MEDS ORDERED: POLYETHYLENE (MIRALAX) 17 GM PACK PO PRN (16:23)
--- NOTE | 2020-06-23 16:25 | Billing Data ---
Date of Service June 23, 2020 Coding Level of Care Code 21163 Subseq Hosp Care Lvl 3
--- NOTE | 2020-06-23 17:21 | Operative Report ---
[facility] Post Operative Report Pre & Post Diagnosis Operation Date: 06/23/20 15:30 Pre-Op Diagnosis: acute renal failure and moderate hydronephosis Post-Op Diagnosis: acute renal failure and moderate hydronephosis I identified the patient and participated in the time-out.: Yes Procedure Operation Date: 06/23/20 15:30 Actual Procedures p Cystoscopy, Attempted Right Stent Placement(Right) - Jacinto Ordonez MD Surgeon Thong Ordonez MD Voting Machine Mechanic none Estimated Blood Loss 0 Findings See Below Specimens none Description of Procedure 74-year-old gentleman with acute renal failure, moderately atrophic left kidney and hydronephrotic right kidney He was brought to the operating room in preparation for cystoscopy and right ureteral stent placement He received antibiotics on the floor prior to arrival. He received sedation upon arrival into the operative suite was placed in dorsal lithotomy position where he was sterilely prepped and draped in standard fashion. Of note he had a Tyler catheter in place upon arrival which was removed. To begin my case I passed a cystoscope per urethra. Inspection revealed healthy-appearing mucosa without strictures. His prostate was relatively enlarged with a high bladder neck. Upon entry into the bladder his tissue appeared to be grossly abnormal. It was extremely edematous and inflamed with numerous nodular projections off of the trigone. I did not readily identify ureteral orifice on the right or left at first inspection. The upper portion of the bladder bowel wall appeared to be relatively normal albeit quite trabeculated. Following my inspection with both a 30 and 70 degree lens I began to produce numerous small divots between the edematous mounds as well as all areas that looked to have any promise as a ureteral orifice. Unfortunately, after 20 minutes of trying every option I could readily see I had not achieve success and elected to abort the procedure. I will speak with the hospitalist service about her transfer tomorrow for percutaneous nephrostomy placement I did not biopsy any of the tissue but I did perform a prostate exam under anes thesiahis prostate was not grossly abnormal. He remained in stable condition throughout the procedure was taken to the recovery room without incident. I attest to the content of the Intraoperative Record and any orders documented therein. Any exceptions are noted below.
--- NOTE | 2020-06-23 18:02 | Anesthesiology Progress Note ---
Date of Service June 23, 2020 Anesthesia Post Procedure Vital Signs Vital Signs: Temp Pulse Pulse Pulse Resp BP Pulse Ox 06/23/20 17:50 36.9 C 60 18 175/79 H 92 06/23/20 17:40 61 20 176/85 H 91 06/23/20 17:30 60 24 180/90 H 91 06/23/20 17:22 37.2 C 60 18 150/105 H 94 06/23/20 16:15 37.4 C 72 20 188/81 H 93 06/23/20 15:44 37.2 C 60 18 185/77 H 90 06/23/20 15:00 61 06/23/20 11:26 37.2 C 60 18 151/64 H 89 L 06/23/20 07:00 37.1 C 60 20 165/68 H 92 06/23/20 04:17 37.1 C 65 20 172/79 H 93 06/22/20 22:54 37.1 C 60 20 162/75 H 93 06/22/20 22:20 60 06/22/20 20:00 37.2 C 60 20 148/64 H 93 Pain Intensity Right Hip: Pain Intensity: 4 Transfer of Care Handoff Completed per policy Notes Mental Status: alert / awake / arousable Patient Amnestic to Procedure: Yes Nausea / Vomiting: adequately controlled Pain: adequately controlled Airway Patency, RR, SpO2: stable & adequate BP & HR: stable & adequate Hydration State: stable & adequate Anesthetic Complications: no major complications apparent
--- NOTE | 2020-06-23 18:05 | Anesthesiology Progress Note ---
Date of Service June 23, 2020 Anesthesia Post Procedure Vital Signs Vital Signs: Temp Pulse Pulse Pulse Resp BP Pulse Ox 06/23/20 17:50 36.9 C 60 18 175/79 H 92 06/23/20 17:40 61 20 176/85 H 91 06/23/20 17:30 60 24 180/90 H 91 06/23/20 17:22 37.2 C 60 18 150/105 H 94 06/23/20 16:15 37.4 C 72 20 188/81 H 93 06/23/20 15:44 37.2 C 60 18 185/77 H 90 06/23/20 15:00 61 06/23/20 11:26 37.2 C 60 18 151/64 H 89 L 06/23/20 07:00 37.1 C 60 20 165/68 H 92 06/23/20 04:17 37.1 C 65 20 172/79 H 93 06/22/20 22:54 37.1 C 60 20 162/75 H 93 06/22/20 22:20 60 06/22/20 20:00 37.2 C 60 20 148/64 H 93 Pain Intensity Right Hip: Pain Intensity: 4 Transfer of Care Handoff Completed per policy Notes Mental Status: alert / awake / arousable Patient Amnestic to Procedure: Yes Nausea / Vomiting: adequately controlled Pain: adequately controlled Airway Patency, RR, SpO2: stable & adequate BP & HR: stable & adequate Hydration State: stable & adequate Anesthetic Complications: no major complications apparent and Pt Satisfied with anesthetic care Notes: The patient is awake and comfortable. He is hypertensive but that is his baseline. His other vital signs are stable. Postop BSG was 58. The patient was awake and alert so he was given orange juice to drink. His BSG came up to the 60s. The patient will go to the floor where he will eat dinner.
--- NOTE | 2020-06-23 18:34 | Fluoroscopy Report ---
FL retrograde includes kub HISTORY: 74 years-old Male STONE right ureteral calculus COMPARISON: CT abdomen and pelvis 06/22/2020 TECHNIQUE: 0 spot fluoroscopic images were submitted. 8.6 seconds fluoroscopy time was utilized. FINDINGS/IMPRESSION: Fluoroscopic assistance was utilized. No images were submitted for review. ACT 112: Negative or not required by law. The above report was generated using voice recognition software. It may contain grammatical, syntax o r spelling errors. Electronically signed by: Michael Truong M.D. 06/23/2020 6:32 PM
[2020-06-23] MEDS ORDERED: Nursing to Pharmacy Communication SCH ×3 (18:45→23:45)
[2020-06-23] MEDS ORDERED: HydrALAZINE HCL 20 MG/ML VIAL IM STA (20:05)
[2020-06-23] MEDS: HydrALAZINE 10 MG TAB PO SCH (20:12)
[2020-06-23] MEDS: ATORVASTATIN 40 MG TAB PO SCH (20:12)
[2020-06-23] MEDS ORDERED: GRAPE SEED EXTRACT PO SCH (21:00)
[2020-06-23] MEDS ORDERED: INSULIN GLARGINE SOLOSTAR 100 UNITS/ML 3 ML PEN SQ SCH (21:00)
[2020-06-23] MEDS ORDERED: ALBUT/IPRATROP 3MG/0.5MG NEB 3 ML VIAL NEB PRN (21:33)
[2020-06-23] MEDS: ACETAMINOPHEN 325 MG TAB PO PRN (21:51)
[2020-06-23] MEDS ORDERED: ALBUMIN 25% 50 ML IV ONE (22:14)
[2020-06-24] MEDS: NORMOSOL-R 1,000 ML IV SCH ×3 (02:38→18:07)
[2020-06-24] MEDS: LEVOTHYROXINE SODIUM 88 MCG TABLET PO SCH (05:37)
--- NOTE | 2020-06-24 06:51 | XRay Report ---
XR chest 1V portable CLINICAL HISTORY: hypoxia COMPARISON STUDY: 12/29/2019 FINDINGS: The cardiac and mediastinal contours remain stable. There is a left subclavian dual-chamber central venous pacemaker. There is diffuse elevation of interstitium, likely secondary to mild conge stive failure/fluid overload. There are no significant pleural effusions. There is no lobar consolida tion.[ IMPRESSION: Radiographic evidence of mild pulmonary vascular congestion/fluid overload. ACT 112: Negative or not required by law. Electronically signed by: Bethel Cardoso M.D. 06/24/2020 6:49 AM
[2020-06-24 07:14] LABS: Hematocrit (blood only) 35.1 % (42-52); Hemoglobin 11.1 g/dL (14.0-18.0); Mean Corpuscular Hemoglobin 29.8 pg (25-34); Mean Corpuscular Hgb Conc 31.6 g/dL (32-36); Mean Corpuscular Volume 94.4 fL (80-100); Mean Platelet Volume 9.9 fL (7.4-10.4); Platelet Count 199 K/uL (130-400); RDW Standard Deviation 55.8 fL (36.4-46.3); Red Blood Count 3.72 M/uL (4.7-6.1); White Blood Count 9.38 K/uL (4.8-10.8)
[2020-06-24 07:53] LABS: BUN Creatinine Ratio 14.6 (10-20); Calcium 7.5 mg/dl (8.5-10.1); Creatinine Clr Calc Pharmacy 17.3 ml/min; Est GFR (Non-African American) 10.4; Potassium 4.3 mmol/L (3.5-5.1)
[2020-06-24] MEDS: PANTOprazole 40 MG TAB PO SCH (08:21)
[2020-06-24] MEDS: GABAPENTIN 300 MG CAP PO SCH (08:21)
[2020-06-24] MEDS: HydrALAZINE 10 MG TAB PO SCH ×2 (08:21→20:24)
[2020-06-24] MEDS: AMLODIPINE BESYLATE 5 MG TAB PO SCH (08:21)
[2020-06-24] MEDS: CEROVITE ADV FORMULA TAB PO SCH (08:21)
[2020-06-24] MEDS: INSULIN ASPART 100 UNITS/ML 3 ML PEN SC SCH ×4 (08:22→20:25)
[2020-06-24] MEDS: METOPROLOL TARTRATE 25 MG TAB PO SCH ×2 (08:22→20:24)
[2020-06-24] MEDS: PANCREAZE (LIPASE 10,500U) CAP PO SCH ×3 (08:22→17:19)
[2020-06-24] MEDS: INSULIN GLARGINE SOLOSTAR 100 UNITS/ML 3 ML PEN SC SCH (08:24)
[2020-06-24] MEDS: cefTRIAXone SODIUM 2,000 MG in DEXTROSE 5% 50 ML IV SCH (08:24)
--- NOTE | 2020-06-24 08:27 | Anesthesiology Progress Note ---
Date of Service June 24, 2020 Anesthesia Post Procedure Vital Signs Vital Signs: Temp Pulse Pulse Pulse Pulse Resp BP 06/24/20 07:59 36.7 C 60 20 06/24/20 07:24 60 17 06/24/20 03:40 60 20 06/24/20 03:00 37.1 C 65 20 162/70 H 06/23/20 23:45 60 06/23/20 23:15 60 25 H 06/23/20 23:00 37.1 C 52 L 20 06/23/20 21:55 60 26 H 06/23/20 20:50 24 180/66 H 06/23/20 20:04 06/23/20 19:41 37.1 C 59 L 18 197/71 H 06/23/20 19:03 60 06/23/20 18:41 36.9 C 62 16 06/23/20 18:14 63 20 06/23/20 18:00 60 17 06/23/20 17:50 36.9 C 60 18 06/23/20 17:40 61 20 06/23/20 17:30 60 24 06/23/20 17:22 37.2 C 60 18 06/23/20 16:15 37.4 C 72 20 06/23/20 15:44 37.2 C 60 18 06/23/20 15:00 61 06/23/20 11:26 37.2 C 60 18 BP Pulse Ox 06/24/20 07:59 168/68 H 96 06/24/20 07:24 97 06/24/20 03:40 98 06/24/20 03:00 97 06/23/20 23:45 06/23/20 23:15 96 06/23/20 23:00 161/75 H 93 06/23/20 21:55 99 06/23/20 20:50 96 06/23/20 20:04 185/75 H 06/23/20 19:41 86 L 06/23/20 19:03 06/23/20 18:41 194/80 H 92 06/23/20 18:14 180/76 H 93 06/23/20 18:00 175/74 H 93 06/23/20 17:50 175/79 H 92 06/23/20 17:40 176/85 H 91 06/23/20 17:30 180/90 H 91 06/23/20 17:22 150/105 H 94 06/23/20 16:15 188/81 H 93 06/23/20 15:44 185/77 H 90 06/23/20 15:00 06/23/20 11:26 151/64 H 89 L Pain Intensity Right Hip: Pain Intensity: 4 Notes Mental Status: alert / awake / arousable Patient Amnestic to Procedure: Yes Nausea / Vomiting: adequately controlled Pain: adequately controlled Airway Patency, RR, SpO2: stable & adequate BP & HR: stable & adequate Hydration State: stable & adequate Anesthetic Complications: no major complications apparent and Pt Satisfied with anesthetic care
--- NOTE | 2020-06-24 08:40 | Urology Progress Note ---
Date of Service June 24, 2020 Assessment & Plan (1) Acute renal failure: 74 year-old male patient admitted with acute on chronic renal failure. -Patient with moderate hydronephrosis of right kidney and a moderately atrophic kidney on left. -POD#1 cystoscopy and attempted right stent placement with Dr. Ordonez. -Unfortunately bladder tissue was grossly abnormal and stent was not able to be placed, see procedure note for details. -Creatinine today 5.13, remains afebrile. -At this time, recommend transfer to tertiary care for percutaneous nephrostomy placement. -Will arrange follow-up with urology service outpatient for continued care. Supervising Physician Co-Signing Physician Notes agree with above unfortunately, I was unable to successfully identify either ureter during surgery yesterday plan for transfer for perc nephrostomy once renal function has stabilized, I feel he will need repeat evaluation of the bladder with likely bladder biopsy, etc Subjective POD #1 cystoscopy with attempted right ureteral stent placement. Unfortunately, upon entry into the bladder, his tissue was grossly abnormal and stent was not able to be placed. Patient understandably upset during exam this morning. Reports he found out this morning about transfer by nursing staff. Feeling average overall since procedure - did develop shortness of breath last evening which required BiPAP. Denies any flank or abdominal pain. Denies fevers or chills. No nausea or vomiting. Tolerating gomez catheter, draining concentrated yellow urine. Chart review: Afebrile Wbc 9.38 Creatinine 5.13 (previously 5.03) Hgb 11.1 Patient denies additional urologic concerns today. Review of Systems Constitutional: as per Subjective / HPI; no fever and no chills Respiratory: as per Subjective / HPI Cardiovascular: no edema Gastrointestinal: as per Subjective / HPI; no nausea and no vomiting Genitourinary: + as per Subjective / HPI Physical Exam Constitutional: well developed, + ill appearing (Mildly ill appearing) and comfortable; no acute distress Respiratory: normal respiratory effort and able to speak in complete sentences; no labored breathing and no audible wheezes On oxygen therapy Cardiovascular: Extremities: no edema Gastrointestinal (Abdomen): Inspection/Auscultation: abdomen not distended Percussion/Palpation: abdomen soft; abdomen nontender and no guarding Psychiatric: Orientation: alert, oriented x 3 and cooperative Genitourinary: no CVA tenderness Results & Data ([facility]) Vital Signs (Past 12 Hours) Vital Signs Temp Pulse Pulse Resp BP BP Pulse Ox 06/24/20 07:59 36.7 C 60 20 168/68 H 96 06/24/20 07:24 60 17 97 06/24/20 03:40 60 20 98 06/24/20 03:00 37.1 C 65 20 162/70 H 97 06/23/20 23:45 60 06/23/20 23:15 60 25 H 96 06/23/20 23:00 37.1 C 52 L 20 161/75 H 93 06/23/20 21:55 60 26 H 99 06/23/20 20:50 24 180/66 H 96 PG Care Time/CCT Total # of Minutes Spent Total Time Spent with Patient: Total time spent is greater than 50% in coord ination of care (as documented) at patient's floor/unit and/or counseling patient: Coding Level of Care Code 37392 Subseq Hosp Care Lvl 2 Diagnoses Acute renal failure N17.9
[2020-06-24] MEDS ORDERED: hydroCHLOROthiazide 25 MG TAB PO SCH (09:00)
[2020-06-24] MEDS ORDERED: MAGNESIUM OXIDE 400 MG TAB PO SCH (09:00)
[2020-06-24] MEDS ORDERED: ASPIRIN 81 MG ECTAB PO SCH (09:00)
--- NOTE | 2020-06-24 10:11 | Nephrology Progress Note ---
Date of Service June 24, 2020 Assessment & Plan (1) Acute renal failure: * JIMMY likely due to R ureteral obstruction and dehydration. Patient is not on TENNILLE/ARB or known nephrotoxic agents. Doubt AIN related to grapeseed extract - no rash. Electrolyte balance is acceptable. No acute indication for HD at this time * Tyler catheter remans in place. Patient is nonoliguric. PSA wnl * Abdominal CT films reviewed: R hydroureteronephrosis seen. L kidney appears atrophic * Renal US 06/22: R 10.6, L 9.4. Diffuse cortical thinning bilaterally. Moderate R hydronephrosis. Tyler catheter in place. Small nonobstructing renal calculi in both kidneys * Patient remains clinically volume contracted. Continue IV hydration * Monitor PRP * Urology note reviewed: R ureteral oriface could not be visualized. Transfer to tertiary care center for VIR percutaneous nephrostomy recommended. Patient prefers [facility] since he was hospitalized there in the past (2) Chronic kidney disease, stage III (moderate): * Baseline Cr 2.0. Suspect underlying microvascular disease (3) Pyelonephritis: * Urine culture is NGTD. WBC # has normalized. Consider stopping antibiotic therapy (4) Hypertension: * Mild HTN. In part related to R flank discomfort. Continue amlodipine and metoprolol therapy Admission and Anticipated Discharge Date Admission Date: June 22, 2020 Subjective Mr. Morales was seen & examined in his hospital room this morning. He denies fever, angina or dyspnea. Cystoscopy was completed yesterday. R ureteral oriface could not be visualized. Tyler catheter has been reinserted and has drained ~ 2500 cc overnight Review of Systems Constitutional: no fever Eyes: no problem reported Ear, Nose, Mouth, Throat: no problem reported Respiratory: no dyspnea Cardiovascular: no chest pain and no edema Gastrointestinal: no abdominal pain and no diarrhea/loose stools Musculoskeletal: + back pain Integumentary: no rash Neurologic: no dizziness Physical Exam Constitutional: not in distress Eyes: PERRL, conjunctivae normal, anicteric sclerae ENMT: external ear and nose normal, oropharynx normal Neck: trachea midline, no thyromegaly Respiratory: normal respiratory effort; no respiratory distress Auscultation: + wheezes Cardiovascular: RRR, no murmur, no edema Gastrointestinal (Abdomen): Inspection/Auscultation: + hypoactive bowel sounds Percussion/Palpation: abdomen soft; abdomen nontender Musculoskeletal: Extremities: no cyanosis Skin: no rashes, warm and dry + turgor decreased Neurologic: awake; not confused Results & Data ([facility] [place]) Vital Signs (Past 12 Hours) Vital Signs Temp Pulse Pulse Resp BP BP Pulse Ox 06/24/20 07:59 36.7 C 60 20 168/68 H 96 06/24/20 07:24 60 17 97 06/24/20 03:40 60 20 98 06/24/20 03:00 37.1 C 65 20 162/70 H 97 06/23/20 23:45 60 06/23/20 23:15 60 25 H 96 06/23/20 23:00 37.1 C 52 L 20 161/75 H 93 Laboratory Results Laboratory Tests 06/24/20 06/24/20 06:51 06:51 WBC 9.38 Hgb 11.1 L Hct 35.1 L Plt Count 199 Sodium 144 Potassium 4.3 Chloride 113 H Carbon Dioxide 21 BUN 75 H Creatinine 5.13 H* Glucose 65 L Calcium 7.5 L PG Care Time/CCT Total # of Minutes Spent Total Time Spent with Patient: Total time spent is greater than 50% in coordination of care (as documented) at patient's floor/unit and/or counseling patient: Coding Level of Care Code 98989 Subseq Hosp Care Lvl 3 Diagnoses Acute renal failure N17.9 Chronic kidney disease, stage III (moderate) N18.3 Pyelonephritis N12 Hypertension I10
[2020-06-24] MEDS: ACETAMINOPHEN 325 MG TAB PO PRN (10:49)
--- NOTE | 2020-06-24 18:02 | Discharge Summary ---
Date of Service June 24, 2020 Admission HPI Per Admitting Provider Isaak is a 74-year-old male with a past medical history of CKD, type 2 diabetes on insulin, hypertension, GERD, pancreatic insufficiency, history of an STEMI with preserved ejection fraction, and agent orange exposure who presents with 1 week of UTI symptoms and 12 hours of anuria. 3-4 weeks ago developed pain with urination and polyuria to every [address] hour. He was placed on an antibiotic by the [facility] but he does not know what it was. Took it for about a week. It did not help his symptoms at all. Doesnt remember which antibiotic. No medication allergies. Last UTI was many years ago. Normally no urinary sx, no trouble peeing, no obstructive symptoms. Denies fevers, chills, night swetas. He endorses R sided sharp back pain which started after a week or so after his pain with urination. After 3 to 4 weeks of peeing every 15 minutes to every hour with intense burning pain with urination he suddenly stopped peeing last night around 7 or 8:00. He also notes he 'Had a double dose of his blood pressure medication about a week ago' but does not recall which medicine.Denies any heart problems. Denies chest pain, chest pressure. Endorses chronic shortness of breath but has not had spirometry and uses no inhalers. Attempted Tx: None other than prescription tx as above. Medical history: Reviewed Surgical history: Reviewed Allergies: No known drug allergies Social: Tobacco 2ppd x60 years. No alcohol. No recreational drugs. Lives with his at home. Noone sick at home. [facility] gets care [facility] [place]. "[place] two [place] I[place] never met, seen one by telephone." He is pending nephrology and diabetes consult but hasn't met them. CODE STATUS: Full code Principal Diagnosis ARF - likely both prerenal (possibly progressed to some ATN) and obstructive bladder/ureteral obstruction unable to be alleviated here Discharge Exam gen aao pleasant nad heent nc at mmm breathing unlabored no accessory muscles good effort skin no rashes no pallor or icterus Discharge Data Allergies Allergy/AdvReac Type Severity Reaction Status Date / Time ASPIRIN (IN DOSES LARGER AdvReac Intermediate N/V Uncoded 12/29/19 18:35 THAN 81MG) Consultations 06/22/20 05:30 ED Decision to Admit Stat 06/22/20 07:23 Consult Nephrology Routine Consult Urology Routine 06/24/20 12:02 Burn CD for patient Routine Procedures Performed Operation Date: 06/23/20 15:30 Actual Procedures p Cystoscopy, Attempted Right Stent Placement(Right) - Jacinto Ordonez MD Ordered Studies 06/22/20 03:49 CT abd pelvis wo con Urgent 06/22/20 13:30 US renal/blad retro comp Routine 06/23/20 16:54 [place] retrograde includes kub Routine Hospital Course (1) Acute renal failure: Isaak is a 74-year-old male with a past medical history of CKD, type 2 diabetes on insulin, hypertension, GERD, pancreatic insufficiency, history of an STEMI with preserved ejection fraction, and agent orange exposure who presents with 1 week of UTI symptoms and 12 hours of anuria. Acute renal failure, obstructive uropathy, prerenal /dehydration component (and possibly ATN), UTI now disproven - most likely elements of both - not septic so doubt infection plays a direct role, and after further review culture was negative scoped by urology - unable to even find ureter to stent - had to transfer to facility w IR for nephrostomy to alleviate obstruction - stable for transfer in that respect Circumferential bladder thickening atypical appearance - see cysto - anticipate need for further w/u of this once ARF situation remedied Coronary artery disease Last echo with preserved EF of 60% asymptomatic Type 2 diabetes mellitus with neuropathy glucoses reasonable control Pancreatic insufficiency, chronic Continue Creon 1 P.o. 3 times daily with meals GERD Continue Protonix 40 mg p.o. daily Hypothyroidism Continue Synthroid 88 mcg daily FEN: As above DVT prophylaxis: SCDs, pharmacal prophylaxis held pending potential procedure evaluation CODE STATUS: Full code Disposition: transfer to [facility] (2) Chronic pancreatitis: (3) Elevated troponin: (4) Insulin-requiring or dependent type II diabetes mellitus: (5) Hypertension: (6) Hyperlipidemia LDL goal <70: (7) GERD (gastroesophageal reflux disease): (8) Pancreatic insufficiency: (9) Pyelonephritis: Total Time Total Time Spent Total Time Spent (In Minutes): <30 Discharge Plan Discharge Items Patient Disposition: Transfer Acute Care Hospital Reason For Visit: ARF, PYELO Discharge Diagnosis: Acute Renal Failure Ureteral Obstruction Pyelonephritis Activity: Per Instructions section Non-emergency contact: Primary Care Provider Call non-emergency contact if: you have any medication questions, your symptoms worsen, your pain is not controlled and you have a fever Follow-up/Referrals: PCP,NO [Primary Care Provider] - Diet: Carb Consistent or DM2 Addtl Attending Provider Instructions: Mr. Morales is a 74-year-old male with a past medical history of CKD, type 2 diabetes on insulin, hypertension, GERD, pancreatic insufficiency, history of an STEMI with preserved ejection fraction, and agent orange exposure who presents with 1 week of UTI symptoms and 12 hours of anuria. He was started on IV Ceftriaxone 2g daily for UTI vs Pyelonephritis, and he was found to be in acute renal failure with Cr 5 - not improving with with IV fluids, gomez catheter placement or IV antibiotics. CT abdomen/pelvis as well as renal US showed right hydronephrosis and ureteronephrosis, and Urology was not able to place a right ureteral stent during cystoscopy on 06/23. He will be transferred to [facility] on 06/24 for a right nephrostomy tube placement and for further evaluation and management of acute kidney failure, as we do not have Interventional Radiology with the ability to place a nephrostomy tube in [facility]. Acute renal failure, obstructive uropathy, prerenal /dehydration component, UTI - most likely secondary to obstruction with findings of circumferential cystitis and ureteronephrosis - suspect possible pre-renal component secondary to inadequate PO intake prior to hospitalization - also possible post-dehydration intrinsic injury via ATN - most likely elements of all three - not septic so doubt infection plays a direct role improvement after gomez suggested BPH may have played a role but PSA 2.16 on 06/22 -initial Urine cx showed minimal colony growth - discontinued Ceftriaxone IV on 06/24 - continue IVFs Normosol 125cc/hr - trend BMP daily Circumferential bladder thickening most likely chronic from BPH and acute from infection - but with asymmetric obstruction and high risk exposures, concern on malignancy as well - cystoscopy on 06/23: unable to place right ureteral stent due to circumferential bladder thickening - transfer to [facility] on 06/24 for Nephrostomy tube placement as we cannot do this procedure at our hospital Coronary artery disease Last echo with preserved EF of 60% Continue amlodipine, aspirin, atorvastatin, metoprolol Patient hypertensive on admission, hold antihypertensives if systolic pressure falls below 100 systolic Type 2 diabetes mellitus with neuropathy follow glucoses, adjust basal bolus insulin BMP daily Hold oral anti-glycemic's HTN - Continue amlodipine and metoprolol therapy Pancreatic insufficiency, chronic Continue Creon 1 P.o. 3 times daily with meals GERD Continue Protonix 40 mg p.o. daily Hypothyroidism Continue Synthroid 88 mcg daily Pending Studies at Discharge: No Stand-Alone Forms: My [facility] Skilled Items Patient informed of condition?: Yes DNR: No Discharge Level of Care: Other Communicable Disease: No Discharge Prognosis: Stable Lines: Peripheral IV Urinary Catheter: Yes Medications and DC Order Prescriptions: Continued aspirin 81 mg Tablet,Delayed Release (Dr/Ec) 81 mg PO QAM Qty: 0 RF: 0 levothyroxine 88 mcg Tablet 88 mcg PO QAM Qty: 0 RF: 0 pantoprazole 40 mg Tablet,Delayed Release (Dr/Ec) 40 mg PO QAM Qty: 0 RF: 0 grape seed extract 50 mg Capsule 100 mg PO QPM Qty: 0 RF: 0 gabapentin 300 mg Capsule 300 mg PO BID Qty: 0 RF: 0 multivitamin with minerals [Men's One Daily] Tablet 1 tab PO DAILY Qty: 0 RF: 0 Creon 24,000-76,000 -120,000 unit Capsule,Delayed Release(Dr/Ec) 1 cap PO TIDM Qty: 0 RF: 0 magnesium oxide 500 mg Tablet 500 mg PO QAM Qty: 0 RF: 0 atorvastatin [Lipitor] 40 mg Tablet 40 mg PO HS Qty: 0 RF: 0 hydrochlorothiazide 25 mg Tablet 25 mg PO QAM Qty: 0 RF: 0 Lantus Solostar U-100 Insulin 100 unit/mL (3 mL) Insulin Pen 30 unit SUBCUT HS Qty: 0 RF: 0 metoprolol tartrate 25 mg Tablet 25 mg PO BID RF: 0 hydralazine 10 mg Tablet 10 mg PO BID RF: 0 amlodipine 10 mg Tablet 10 mg PO DAILY RF: 0 Discharge Orders: Discharge Order (Routine); Ordered 06/24/20 Ordered By: James Marie Admission Data Admit Date/Time: 06/22/20 06:16 Attending Provider: Bharat Groves Admit Provider: Víctor Bradshaw Primary Care Provider: PCP,NO Other Providers: Jhon Anton ; Omkar Perry ; Prateek Roberts Coding Level of Care Code D/C Day Management <30 mins Diagnoses Acute renal failure N17.9 Chronic pancreatitis K86.1 Elevated troponin R79.89 Insulin-requiring or dependent type II diabetes mellitus E11.9; Z79.4 Hypertension I10 Hyperlipidemia LDL goal <70 E78.5 GERD (gastroesophageal reflux disease) K21.9 Pancreatic insufficiency K86.89 Pyelonephritis N12
--- NOTE | 2020-06-24 18:06 | Discharge Summary ---
Date of Service June 24, 2020 Admission HPI Per Admitting Provider Isaak is a 74-year-old male with a past medical history of CKD, type 2 diabetes on insulin, hypertension, GERD, pancreatic insufficiency, history of an STEMI with preserved ejection fraction, and agent orange exposure who presents with 1 week of UTI symptoms and 12 hours of anuria. 3-4 weeks ago developed pain with urination and polyuria to every [address] hour. He was placed on an antibiotic by the [facility] but he does not know what it was. Took it for about a week. It did not help his symptoms at all. Doesnt remember which antibiotic. No medication allergies. Last UTI was many years ago. Normally no urinary sx, no trouble peeing, no obstructive symptoms. Denies fevers, chills, night swetas. He endorses R sided sharp back pain which started after a week or so after his pain with urination. After 3 to 4 weeks of peeing every 15 minutes to every hour with intense burning pain with urination he suddenly stopped peeing last night around 7 or 8:00. He also notes he 'Had a double dose of his blood pressure medication about a week ago' but does not recall which medicine.Denies any heart problems. Denies chest pain, chest pressure. Endorses chronic shortness of breath but has not had spirometry and uses no inhalers. Attempted Tx: None other than prescription tx as above. Medical history: Reviewed Surgical history: Reviewed Allergies: No known drug allergies Social: Tobacco 2ppd x60 years. No alcohol. No recreational drugs. Lives with his at home. Noone sick at home. Normally gets care at the [facility] in [place]. "I have two doctors in [place] I've never met, seen one by telephone." He is pending nephrology and diabetes consult but hasn't met them. CODE STATUS: Full code Admission Exam Per Admitting Provider Physical Exam: General: A&Ox3. NAD. Cooperative. HEENT: Atraumatic, normocephalic. Dukas membranes extremely dry, tongue cracked, lips dry and cracked. Pulm: CTAB A&P. -wheezes, -rales, -rhonchi. Symmetrical chest rise. No increase work of breathing. No respiratory distress. Cardiac: Bigeminy, -mrg. Radial pulses intact and symmetrical. Abdominal: Nontender, nondistended, soft. BS present. Right CVA tenderness present. Extremities: Warm, dry. Sensation intact. Strength grossly intact. Principal Diagnosis Acute Renal Failure Right ureteral obstruction Discharge Exam Constitutional: WD/WN, vitals as above no acute distress Neck: normal visual inspection Respiratory: no respiratory distress and no labored breathing Auscultation: + wheezes (faint expiratory wheezes bilaterally) Cardiovascular: Rate/Rhythm: regular rate and regular rhythm Heart Sounds: no murmur Extremities: + edema (1+ pitting edema in ankles bilaterally) Musculoskeletal: no cyanosis or clubbing, extremities motor strength 5/5 Psychiatric: A+Ox3, euthymic affect Discharge Data Allergies Allergy/AdvReac Type Severity Reaction Status Date / Time ASPIRIN (IN DOSES LARGER AdvReac Intermediate N/V Uncoded 12/29/19 18:35 THAN 81MG) Consultations 06/22/20 05:30 ED Decision to Admit Stat 06/22/20 07:23 Consult Nephrology Routine Consult Urology Routine 06/24/20 12:02 Burn CD for patient Routine Procedures Performed Operation Date: 06/23/20 15:30 Actual Procedures p Cystoscopy, Attempted Right Stent Placement(Right) - Jacinto Ordonez MD Ordered Studies 06/22/20 03:49 CT abd pelvis wo con Urgent 06/22/20 13:30 US renal/blad retro comp Routine 06/23/20 16:54 FL retrograde includes kub Routine Hospital Course (1) Acute renal failure: Mr. Morales is a 74-year-old male with a past medical history of CKD, type 2 diabetes on insulin, hypertension, GERD, pancreatic insufficiency, history of an STEMI with preserved ejection fraction, and agent orange exposure who presents with 1 week of UTI symptoms and 12 hours of anuria. He was started on IV Ceftriaxone 2g daily for UTI vs Pyelonephritis, and he was found to be in acute renal failure with Cr 5 - not improving with with IV fluids, gomez catheter placement or IV antibiotics. CT abdomen/pelvis as well as renal US showed right hydronephrosis and ureteronephrosis, and Urology was not able to place a right ureteral stent during cystoscopy on 06/23. He will be transferred to [facility] on 06/24 for a right nephrostomy tube placement and for further evaluation and management of acute kidney failure, as we do not have Interventional Radiology with the ability to place a nephrostomy tube in [facility]. Acute renal failure, obstructive uropathy, prerenal /dehydration component, UTI - most likely secondary to obstruction with findings of circumferential cystitis and ureteronephrosis - suspect possible pre-renal component secondary to inadequate PO intake prior to hospitalization - also possible post-dehydration intrinsic injury via ATN - most likely elements of all three - not septic so doubt infection plays a direct role improvement after gomez suggested BPH may have played a role but PSA 2.16 on 06/22 -initial Urine cx showed minimal colony growth - discontinued Ceftriaxone IV on 06/24 - continue IVFs Normosol 125cc/hr - trend BMP daily Circumferential bladder thickening most likely chronic from BPH and acute from infection - but with asymmetric obstruction and high risk exposures, concern on malignancy as well - cystoscopy on 06/23: unable to place right ureteral stent due to circumferential bladder thickening - transfer to [facility] on 06/24 for Nephrostomy tube placement as we cannot do this procedure at our hospital Coronary artery disease Last echo with preserved EF of 60% Continue amlodipine, aspirin, atorvastatin, metoprolol Patient hypertensive on admission, hold antihypertensives if systolic pressure falls below 100 systolic Type 2 diabetes mellitus with neuropathy follow glucoses, adjust basal bolus insulin BMP daily Hold oral anti-glycemic's HTN - Continue amlodipine and metoprolol therapy Pancreatic insufficiency, chronic Continue Creon 1 P.o. 3 times daily with meals GERD Continue Protonix 40 mg p.o. daily Hypothyroidism Continue Synthroid 88 mcg daily Total Time Total Time Spent Total Time Spent (In Minutes): 60 minutes Total Time Includes: Examination of the Patient, Discharge Planning, Medication Reconciliation and Communication With Other Providers Discharge Plan Discharge Items Patient Disposition: Transfer Acute Care Hospital Reason For Visit: ARF, [facility] Discharge Diagnosis: Acute Renal Failure Ureteral Obstruction Pyelonephritis Activity: Per Instructions section Non-emergency contact: Primary Care Provider Call non-emergency contact if: you have any medication questions, your symptoms worsen, your pain is not controlled and you have a fever Follow-up/Referrals: PCP,NO [Primary Care Provider] - Diet: Carb Consistent or DM2 Addtl Attending Provider Instructions: Mr. Morales is a 74-year-old male with a past medical history of CKD, type 2 diabetes on insulin, hypertension, GERD, pancreatic insufficiency, history of an STEMI with preserved ejection fraction, and agent orange exposure who presents with 1 week of UTI symptoms and 12 hours of anuria. He was started on IV Ceftriaxone 2g daily for UTI vs Pyelonephritis, and he was found to be in acute renal failure with Cr 5 - not improving with with IV fluids, gomez catheter placement or IV antibiotics. CT abdomen/pelvis as well as renal US showed right hydronephrosis and ureteronephrosis, and Urology was not able to place a right ureteral stent during cystoscopy on 06/23. He will be transferred to [facility] on 06/24 for a right nephrostomy tube placement and for further evaluation and management of acute kidney failure, as we do not have Interventional Radiology with the ability to place a nephrostomy tube in [facility]. Acute renal failure, obstructive uropathy, prerenal /dehydration component, UTI - most likely secondary to obstruction with findings of circumferential cystitis and ureteronephrosis - suspect possible pre-renal component secondary to inadequate PO intake prior to hospitalization - also possible post-dehydration intrinsic injury via ATN - most likely elements of all three - not septic so doubt infection plays a direct role improvement after gomez suggested BPH may have played a role but PSA 2.16 on 06/22 -initial Urine cx showed minimal colony growth - discontinued Ceftriaxone IV on 06/24 - continue IVFs Normosol 125cc/hr - trend BMP daily Circumferential bladder thickening most likely chronic from BPH and acute from infection - but with asymmetric obstruction and high risk exposures, concern on malignancy as well - cystoscopy on 06/23: unable to place right ureteral stent due to circumferential bladder thickening - transfer to [facility] on 06/24 for Nephrostomy tube placement as we cannot do this procedure at our hospital Coronary artery disease Last echo with preserved EF of 60% Continue amlodipine, aspirin, atorvastatin, metoprolol Patient hypertensive on admission, hold antihypertensives if systolic pressure falls below 100 systolic Type 2 diabetes mellitus with neuropathy follow glucoses, adjust basal bolus insulin BMP daily Hold oral anti-glycemic's HTN - Continue amlodipine and metoprolol therapy Pancreatic insufficiency, chronic Continue Creon 1 P.o. 3 times daily with meals GERD Continue Protonix 40 mg p.o. daily Hypothyroidism Continue Synthroid 88 mcg daily Pending Studies at Discharge: No Stand-Alone Forms: My [facility] Skilled Items Patient informed of condition?: Yes DNR: No Discharge Level of Care: Other Communicable Disease: No Discharge Prognosis: Stable Lines: Peripheral IV Urinary Catheter: Yes Medications and DC Order Prescriptions: Continued aspirin 81 mg Tablet,Delayed Release (Dr/Ec) 81 mg PO QAM Qty: 0 RF: 0 levothyroxine 88 mcg Tablet 88 mcg PO QAM Qty: 0 RF: 0 pantoprazole 40 mg Tablet,Delayed Release (Dr/Ec) 40 mg PO QAM Qty: 0 RF: 0 grape seed extract 50 mg Capsule 100 mg PO QPM Qty: 0 RF: 0 gabapentin 300 mg Capsule 300 mg PO BID Qty: 0 RF: 0 multivitamin with minerals [Men's One Daily] Tablet 1 tab PO DAILY Qty: 0 RF: 0 Creon 24,000-76,000 -120,000 unit Capsule,Delayed Release(Dr/Ec) 1 cap PO TIDM Qty: 0 RF: 0 magnesium oxide 500 mg Tablet 500 mg PO QAM Qty: 0 RF: 0 atorvastatin [Lipitor] 40 mg Tablet 40 mg PO HS Qty: 0 RF: 0 hydrochlorothiazide 25 mg Tablet 25 mg PO QAM Qty: 0 RF: 0 Lantus Solostar U-100 Insulin 100 unit/mL (3 mL) Insulin Pen 30 unit SUBCUT HS Qty: 0 RF: 0 metoprolol tartrate 25 mg Tablet 25 mg PO BID RF: 0 hydralazine 10 mg Tablet 10 mg PO BID RF: 0 amlodipine 10 mg Tablet 10 mg PO DAILY RF: 0 Discharge Orders: Discharge Order (Routine); Ordered 06/24/20 Ordered By: James Marie Admission Data Admit Date/Time: 06/22/20 06:16 Attending Provider: Bharat Groves Admit Provider: Víctor Bradshaw Primary Care Provider: PCP,NO Other Providers: Jhon Anton ; Omkar Perry ; Prateek Roberts Resident Activity Tracking Resident Involvement: Resident Care Provided Care Provided: Adult Hospital Medicine
[2020-06-24] MEDS: ATORVASTATIN 40 MG TAB PO SCH (20:24)
== END 2020-06-24 20:45 | disposition short-term general hospital (02) | DRG 684 ==
LOC: ED 03:38 → 2N 06:16 → SUATTDRO 06:16 → 2N 06:42

== ENCOUNTER 2020-07-25 11:25 | Inpatient (IN) ==
[2020-07-25 12:01] LABS: Basophils # (auto) 0.03 K/uL (0-0.2); Basophils % (auto) 0.3 %; Eosinophils # (auto) 0.23 K/uL (0-0.5); Eosinophils % (auto) 2.2 %; Hematocrit (blood only) 34.5 % (42-52); Hemoglobin 10.1 g/dL (14.0-18.0); Lymphocytes % (auto) 10.7 %; Mean Corpuscular Hemoglobin 28.5 pg (25-34); Mean Corpuscular Hgb Conc 29.3 g/dL (32-36); Mean Corpuscular Volume 97.5 fL (80-100); Mean Platelet Volume 9.4 fL (7.4-10.4); Monocytes # (auto) 0.97 K/uL (0.11-0.59); Monocytes % (auto) 9.5 %; Neutrophils # (auto) 7.71 K/uL (1.4-6.5); Neutrophils % (auto) 75.3 %; Nucleated RBC # (auto) 0.11 K/uL (0-0); Nucleated RBC % (auto) 1.1 %; Platelet Count 347 K/uL (130-400); RDW Coefficient of Variation 16.4 % (11.5-14.5); RDW Standard Deviation 58.8 fL (36.4-46.3); Red Blood Count 3.54 M/uL (4.7-6.1); White Blood Count 10.24 K/uL (4.8-10.8)
[2020-07-25 12:17] LABS: BUN Creatinine Ratio 6.2 (10-20); C Reactive Protein 7.73 mg/dl (0-0.29); Calcium 7.7 mg/dl (8.5-10.1); Creatinine Clr Calc Pharmacy 28.6 ml/min; Est GFR (African American) 23.3; Est GFR (Non-African American) 20.1; Potassium 4.3 mmol/L (3.5-5.1)
--- NOTE | 2020-07-25 12:17 | Emergency Department Note ---
Impression & Plan Acute respiratory failure with hypoxia, Fever, Pyelonephritis ED Provider Note NAME: ALFREDO RODAS AGE: 74 SEX: M : 1945 ARRIVES VIA: Ambulance INFORMANT: Patient, ED PROVIDER(S): Ralph Villanueva MD Chief Complaint: Fever HPI: Patient does present from home due to concern for fever. The patient reportedly has slid out of bed refused here to the hospital was seen by Occupational Therapy this morning and noted the patient's fever who sent him into the emergency department. The patient denies any shortness of breath or chest pains. Of note the patient is DNR/DNI. The patient does relate that he did have a recent AV fistula placed in his right upper extremity. Patient does have a permacath he does receive Saturday dialysis last receiving dialysis on Saturday he has [employer]. Patient denies any cough or sick contacts. The patient denies any headache, chest pains or abdominal pain. The patient does have a nephrostomy tube. ROS: See HPI for pertinent positives and negatives. A total of 10 systems were reviewed and otherwise negative. Past medical history: See below Surgical history: See below Social history: See below Physical Exam: GENERAL: Mildly ill in appearance, nasal cannula in place. Wearing a mask. EYE EXAM: Normal conjunctiva. PERRL, no anisocoria and EOM's grossly intact w/o pain. NECK: Supple, no nuchal rigidity, no adenopathy, non-tender. No signs of meningismus. LUNGS: Manage breath sounds bilaterally at the bases. HEART: NSR, no MRG. ABDOMEN: Abdomen soft, non-tender, normo-active bowel sounds, no masses, no rebound or guarding. BACK: No CVA TTP. SKIN: No rashes and no bruising. UPPER EXTREMITIES: Right upper extremity AV fistula intact in the incisional site appears well without obvious erythema fluctuance or drainage. LOWER EXTREMITIES: Right groin permacath in place. NEURO EXAM: A&O x3, cranial nerves II-XII grossly intact, normal speech, moves all 4 extremities on command w/o issue. Differential diagnoses: Viral syndrome, otitis, pharyngitis, pneumonia, influenza, meningitis, urinary tract infection, sepsis, bacteremia, as well as other pathologies. Course: Patient was seen and evaluated the bedside. Full history physical exam was performed. EKG: Indication: Illness Paced rhythm, rate of approximately 60 (machine read at 123), right bundle branch block. T wave inversions anteriorly in the high lateral leads. Imaging Studies: Radiology results as stated below per my review in the radiologist's interpretation: XR chest 1V portable HISTORY: hypoxia COMPARISON: Chest 06/23/2020. FINDINGS: No pneumothorax. No pleural effusions. The heart remains mildly enlarged. Left-sided dual-chamber pacemaker. There is mild central pulmonary vascular congestion without overt edema. This is improved. No new focal lung c onsolidations to suggest pneumonia. There are low lung volumes. IMPRESSION: Cardiomegaly with mild central pulmonary vascular congestion without overt edema. This has improved. ACT 112: Negative or not required by law. Electronically signed by: Joseph Boston M.D. 07/25/2020 12:55 PM Dictated: 07/25/20 1254 Transcribed: 07/25/20 1254 Cardiac monitoring: An order was placed for continuous cardiac monitoring. The monitor shows a rate of 65 with sinus rhythm. MDM: Patient does present with concern for fever and hypoxia. Blood work was obtained. Urinalysis was obtained along with a COVID swab. Chest x-ray also obtained patient was ordered empiric antibiotics. Given the patient's known history of dialysis and stable blood pressures will avoid hydration at this time. Patient's x-ray does show some mild congestion without edema which does appear improved compared to prior. Patient CKD is noted but potassium and bicarb are normal. The patient does have mildly low calcium lactate is not elevated. Urinalysis does appear to be infected. Coronavirus test is negative. I did speak the on-call hospitalist Dr. Luciano patient was subsequently admitted to the medicine service. Critical Care: I have personally spent 75 minutes of critical care time in direct management of this patient. This includes bedside care, interpretation of diagnostic studies, and testing, discussion with consultants, patient, and family members, and other require inpatient management activities. This 75 minutes is in excess of all separately billable procedures. Past Med/Surg History Medical History Agent [place] poisoning Chronic pancreatitis Elevated troponin GERD (gastroesophageal reflux disease) History of pacemaker Hyperlipidemia LDL goal <70 Hypertension Hypothyroidism (acquired) Insulin-requiring or dependent type II diabetes mellitus Morbid obesity Pancreatic insufficiency Peripheral neuropathy Smoker Surgical History History of permanent cardiac pacemaker placement Family History Other Family history non-contributory Social History Smoking Status: Current every day smoker Tobacco Type: Cigarettes Cigarettes Per Day: 15; Second Hand Exposure: No; Hx Alcohol Use: No Hx Substance Use: No Preferred Language: [place] Communication Ability: Effective Communication Ability Comment: at times confused 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[employer] 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 Required: No Beliefs That Will Affect Care: None marital status: Current Living Situation: Spouse Other Information That Helps Us Care for You: No Feels Safe at Home: Yes Safety Concerns: Feels Safe At This Time Assistive Devices: Glasses and Oxygen - Continuous Allergies Allergies Allergy/AdvReac Type Severity Reaction Status Date / Time ASPIRIN (IN DOSES LARGER AdvReac Intermediate N/V Uncoded 07/25/20 15:05 THAN 81MG) Home Meds Home Medications Medication Instructions Recorded Confirmed Creon 1 cap PO TIDM #0 05/22/15 07/25/20 aspirin 81 mg PO QAM #0 05/22/15 07/25/20 gabapentin 300 mg PO BID #0 05/22/15 07/25/20 grape seed extract 100 mg PO QPM #0 05/22/15 07/25/20 levothyroxine 88 mcg PO QAM #0 05/22/15 07/25/20 multivitamin with minerals [Men's 1 tab PO DAILY #0 05/22/15 07/25/20 One Daily] Lantus Solostar U-100 Insulin 0 unit SUBCUT HS #0 pen 05/05/18 06/22/20 atorvastatin [Lipitor] 40 mg PO QAM #0 tab 05/05/18 07/25/20 magnesium oxide 500 mg PO QAM #0 05/05/18 07/25/20 metoprolol tartrate 25 mg PO BID 12/29/19 07/25/20 amlodipine 5 mg PO QAM 06/22/20 07/25/20 hydralazine 10 mg PO BID 06/22/20 07/25/20 albuterol sulfate [Ventolin HFA] 2 puff INHALATION QID PRN 07/25/20 07/25/20 budesonide-formoterol [Symbicort] 2 inh INHALATION HS PRN 07/25/20 07/25/20 insulin asp prt-insulin aspart 0 unit SUBCUT UD 07/25/20 07/25/20 [Novolog Mix 70-30FlexPen U-100] oxycodone-acetaminophen [Percocet] 1 tab PO Q4H PRN 07/25/20 07/25/20 Results & Data (ED) Vital Signs Vital Signs - 24 hr 07/25/20 11:40 07/25/20 11:52 07/25/20 12:01 Temperature 38.3 C H Temperature Source Oral Pulse Rate 84 60 Pulse Rate from SpO2 Sensor 60 Respiratory Rate 18 21 Respiratory Effort / Characteristics Non-Labored Spontaneous Non-Labored Respiratory Depth Normal Normal Respiratory Pattern Regular Regular Blood Pressure 148/75 H Blood Pressure Mean 99 Blood Pressure Position Sitting Pulse Oximetry 88 L 89 L Oxygen Delivery Method Room Air Nasal Cannula Oxygen Flow Rate 5 Sepsis Recent Fever Within 48 Hours Yes Sepsis New/Unexplained Change in Mental Status N/A Sepsis Action Taken by Nursing No Action Required 07/25/20 12:06 07/25/20 13:35 07/25/20 14:00 Temperature Temperature Source Pulse Rate 60 61 Pulse Rate from SpO2 Sensor 60 60 Respiratory Rate 19 20 Respiratory Effort / Characteristics Respiratory Depth Respiratory Pattern Blood Pressure 172/93 H 183/75 H Blood Pressure Mean 117 123 Blood Pressure Position Pulse Oximetry 95 98 93 Oxygen Delivery Method Nasal Cannula Nasal Cannula Nasal Cannula Oxygen Flow Rate 6 6 6 Sepsis Recent Fever Within 48 Hours Sepsis New/Unexplained Change in Mental Status Sepsis Action Taken by Nursing 07/25/20 14:30 07/25/20 15:00 07/25/20 15:31 Temperature Temperature Source Pulse Rate 61 60 66 Pulse Rate from SpO2 Sensor 61 60 66 Respiratory Rate 19 18 23 Respiratory Effort / Characteristics Respiratory Depth Respiratory Pattern Blood Pressure 192/71 H 171/71 H 161/84 H Blood Pressure Mean 106 98 102 Blood Pressure Position Pulse Oximetry 97 92 98 Oxygen Delivery Method Nasal Cannula Nasal Cannula Nasal Cannula Oxygen Flow Rate 6 6 6 Sepsis Recent Fever Within 48 Hours Sepsis New/Unexplained Change in Mental Status Sepsis Action Taken by Nursing 07/25/20 16:01 Temperature Temperature Source Pulse Rate 65 Pulse Rate from SpO2 Sensor 64 Respiratory Rate 22 Respiratory Effort / Characteristics Respiratory Depth Respiratory Pattern Blood Pressure 187/68 H Blood Pressure Mean 82 Blood Pressure Position Pulse Oximetry 97 Oxygen Delivery Method Nasal Cannula Oxygen Flow Rate 6 Sepsis Recent Fever Within 48 Hours Sepsis New/Unexplained Change in Mental Status Sepsis Action Taken by Assisted Medications Current Medication List: was personally reviewed by me Laboratory Data Attestation: I reviewed the patient's lab results. Result diagrams: 07/25/20 11:48 07/25/20 11:48 Lab Results 07/25/20 07/25/20 07/25/20 Range/Units 11:48 11:48 11:48 WBC 10.24 (4.8-10.8) K/uL RBC 3.54 L (4.7-6.1) M/uL Hgb 10.1 L (14.0-18.0) g/dL Hct 34.5 L (42-52) % MCV 97.5 (80-100) fL MCH 28.5 (25-34) pg MCHC 29.3 L (32-36) g/dL RDW Std Deviation 58.8 H (36.4-46.3) fL RDW Coeff of Hilda 16.4 H (11.5-14.5) % Plt Count 347 (130-400) K/uL MPV 9.4 (7.4-10.4) fL Immature Gran % (Auto) 2.0 % Neut % (Auto) 75.3 % Lymph % (Auto) 10.7 % [place] % (Auto) 9.5 % Eos % (Auto) 2.2 % Baso % (Auto) 0.3 % Neut # (Auto) 7.71 H (1.4-6.5) K/uL Lymph # (Auto) 1.10 L (1.2-3.4) K/uL [place] # (Auto) 0.97 H (0.11-0.59) K/uL Eos # (Auto) 0.23 (0-0.5) K/uL Baso # (Auto) 0.03 (0-0.2) K/uL Immature Gran # (Auto) 0.20 H (0.00-0.02) K/uL Absolute Nucleated RBC 0.11 H (0-0) K/uL Nucleated RBC % (auto) 1.1 % PT (9.0-12.0) Seconds INR (0.9-1.1) APTT (21.0-31.0) Seconds PTT Ratio Sodium 136 (136-145) mmol/L Potassium 4.3 (3.5-5.1) mmol/L Chloride 99 (98-107) mmol/L Carbon Dioxide 29 (21-32) mmol/L Anion Gap 8.0 (3-11) BUN 18 (7-18) mg/dl Creatinine 2.97 H (0.6-1.4) mg/dl Est Cr Clr Drug Dosing 28.6 ml/min Est GFR ( Amer) 23.3 Est GFR (Non-Af Amer) 20.1 BUN/Creatinine Ratio 6.2 L (10-20) Glucose 130 H (70-99) mg/dl Lactate (0.4-2.0) mmol/L Calcium 7.7 L (8.5-10.1) mg/dl Magnesium 2.1 (1.8-2.4) mg/dl Total Bilirubin 0.3 (0.2-1) mg/dl AST 46 H (15-37) U/L ALT 21 (12-78) U/L Alkaline Phosphatase 122 H (45-117) U/L C-Reactive Protein 7.73 H (0-0.29) mg/dl Total Protein 6.3 L (6.4-8.2) gm/dl Albumin 2.0 L (3.4-5.0) gm/dl Globulin 4.3 H (2.5-4.0) gm/dl Albumin/Globulin Ratio 0.5 L (0.9-2) Specimen Hemolysis Urine Color Urine Appearance (Clear) Urine pH (4.5-7.5) Ur Specific [place] (1.000-1.030) Urine Protein (Negative) Urine Glucose (UA) (Negative) Urine Ketones (Negative) Urine Blood (Negative) Urine Nitrite (Negative) Urine Bilirubin (Negative) Urine Urobilinogen (Negative) Ur Leukocyte Esterase (Negative) Urine WBC (Auto) (0-5) /hpf Urine RBC (Auto) (0-4) /hpf U Hyaline Cast (Auto) (0-5) /lpf U Epithel Cells (Auto) (0-5) /lpf Urine Bacteria (Auto) (Negative) Urine Yeast COVID-19 Eval Order COVID-19 PCR (Negative) 07/25/20 07/25/20 07/25/20 Range/Units 12:53 12:53 12:53 WBC (4.8-10.8) K/uL RBC (4.7-6.1) M/uL Hgb (14.0-18.0) g/dL Hct (42-52) % MCV (80-100) fL MCH (25-34) pg MCHC (32-36) g/dL RDW Std Deviation (36.4-46.3) fL RDW Coeff of Hilda (11.5-14.5) % Plt Count (130-400) K/uL MPV (7.4-10.4) fL Immature Gran % (Auto) % Neut % (Auto) % Lymph % (Auto) % [place] % (Auto) % Eos % (Auto) % Baso % (Auto) % Neut # (Auto) (1.4-6.5) K/uL Lymph # (Auto) (1.2-3.4) K/uL [place] # (Auto) (0.11-0.59) K/uL Eos # (Auto) (0-0.5) K/uL Baso # (Auto) (0-0.2) K/uL Immature Gran # (Auto) (0.00-0.02) K/uL Absolute Nucleated RBC (0-0) K/uL Nucleated RBC % (auto) % PT (9.0-12.0) Seconds INR (0.9-1.1) APTT (21.0-31.0) Seconds PTT Ratio Sodium (136-145) mmol/L Potassium (3.5-5.1) mmol/L Chloride (98-107) mmol/L Carbon Dioxide (21-32) mmol/L Anion Gap (3-11) BUN (7-18) mg/dl Creatinine (0.6-1.4) mg/dl Est Cr Clr Drug Dosing ml/min Est GFR ( Amer) Est GFR (Non-Af Amer) BUN/Creatinine Ratio (10-20) Glucose (70-99) mg/dl Lactate 1.2 (0.4-2.0) mmol/L Calcium (8.5-10.1) mg/dl Magnesium (1.8-2.4) mg/dl Total Bilirubin (0.2-1) mg/dl AST (15-37) U/L ALT (12-78) U/L Alkaline Phosphatase (45-117) U/L C-Reactive Protein (0-0.29) mg/dl Total Protein (6.4-8.2) gm/dl Albumin (3.4-5.0) gm/dl Globulin (2.5-4.0) gm/dl Albumin/Globulin Ratio (0.9-2) Specimen Hemolysis Urine Color [place] Urine Appearance Cloudy A (Clear) Urine pH 7.5 (4.5-7.5) Ur Specific [place] 1.011 (1.000-1.030) Urine Protein 2+ H (Negative) Urine Glucose (UA) Negative (Negative) Urine Ketones Negative (Negative) Urine Blood 3+ H (Negative) Urine Nitrite Negative (Negative) Urine Bilirubin Negative (Negative) Urine Urobilinogen Negative (Negative) Ur Leukocyte Esterase 3+ H (Negative) Urine WBC (Auto) >30 H (0-5) /hpf Urine RBC (Auto) >30 H (0-4) /hpf U Hyaline Cast (Auto) 1-5 (0-5) /lpf U Epithel Cells (Auto) 5-10 H (0-5) /lpf Urine Bacteria (Auto) 3+ H (Negative) Urine Yeast Not Reportable COVID-19 Eval Order Covid19 Done at [facility] COVID-19 PCR (Negative) 07/25/20 07/25/20 Range/Units 12:53 13:09 WBC (4.8-10.8) K/uL RBC (4.7-6.1) M/uL Hgb (14.0-18.0) g/dL Hct (42-52) % MCV (80-100) fL MCH (25-34) pg MCHC (32-36) g/dL RDW Std Deviation (36.4-46.3) fL RDW Coeff of Hilda (11.5-14.5) % Plt Count (130-400) K/uL MPV (7.4-10.4) fL Immature Gran % (Auto) % Neut % (Auto) % Lymph % (Auto) % [place] % (Auto) % Eos % (Auto) % Baso % (Auto) % Neut # (Auto) (1.4-6.5) K/uL Lymph # (Auto) (1.2-3.4) K/uL [place] # (Auto) (0.11-0.59) K/uL Eos # (Auto) (0-0.5) K/uL Baso # (Auto) (0-0.2) K/uL Immature Gran # (Auto) (0.00-0.02) K/uL Absolute Nucleated RBC (0-0) K/uL Nucleated RBC % (auto) % PT 11.5 (9.0-12.0) Seconds INR 1.1 (0.9-1.1) APTT 29.3 (21.0-31.0) Seconds PTT Ratio 1.1 Sodium (136-145) mmol/L Potassium (3.5-5.1) mmol/L Chloride (98-107) mmol/L Carbon Dioxide (21-32) mmol/L Anion Gap (3-11) BUN (7-18) mg/dl Creatinine (0.6-1.4) mg/dl Est Cr Clr Drug Dosing ml/min Est GFR ( Amer) Est GFR (Non-Af Amer) BUN/Creatinine Ratio (10-20) Glucose (70-99) mg/dl Lactate (0.4-2.0) mmol/L Calcium (8.5-10.1) mg/dl Magnesium (1.8-2.4) mg/dl Total Bilirubin (0.2-1) mg/dl AST (15-37) U/L ALT (12-78) U/L Alkaline Phosphatase (45-117) U/L C-Reactive Protein (0-0.29) mg/dl Total Protein (6.4-8.2) gm/dl Albumin (3.4-5.0) gm/dl Globulin (2.5-4.0) gm/dl Albumin/Globulin Ratio (0.9-2) Specimen Hemolysis Urine Color Urine Appearance (Clear) Urine pH (4.5-7.5) Ur Specific [place] (1.000-1.030) Urine Protein (Negative) Urine Glucose (UA) (Negative) Urine Ketones (Negative) Urine Blood (Negative) Urine Nitrite (Negative) Urine Bilirubin (Negative) Urine Urobilinogen (Negative) Ur Leukocyte Esterase (Negative) Urine WBC (Auto) (0-5) /hpf Urine RBC (Auto) (0-4) /hpf U Hyaline Cast (Auto) (0-5) /lpf U Epithel Cells (Auto) (0-5) /lpf Urine Bacteria (Auto) (Negative) Urine Yeast COVID-19 Eval Order COVID-19 PCR NEGATIVE (Negative) Administered Medications Discontinued Medications Cefepime HCl (Cefepime 2,000 Mg/20 Ml Vial) Confirm Administered Dose 2,000 mg .ROUTE .STK-MED ONE Stop: 07/25/20 13:33 Last Admin: 07/25/20 13:40 Dose: Not Given Documented by: [id number] Vancomycin HCl 2,000 mg/ (Sodium Chloride) 540 mls @ 200 mls/hr IV NOW STA Stop: 07/25/20 15:31 Last Admin: 07/25/20 13:40 Dose: 200 mls/hr Documented by: [id number] Cefepime HCl 2,000 mg/ Syringe 20 mls @ 5 mls/min IV NOW STA Stop: 07/25/20 12:54 Last Admin: 07/25/20 13:35 Dose: 5 mls/min Documented by: [id number] Discharge Plan Visit Data Chief Complaint: Lethargic ED Provider: Ralph Villanueva Discharge Problem: Acute respiratory failure with hypoxia, Fever, Pyelonephritis Patient Disposition: Admitted As Inpatient Discharge Instructions Interventions: ED Discharge Assessment Last Done: 07/25/20 16:29 Forms Stand Alone Forms: [facility] [employer] Prescriptions Prescriptions: No Action aspirin 81 mg Tablet,Delayed Release (Dr/Ec) 81 mg PO QAM Qty: 0 RF: 0 levothyroxine 88 mcg Tablet 88 mcg PO QAM Qty: 0 RF: 0 grape seed extract 50 mg Capsule 100 mg PO QPM Qty: 0 RF: 0 gabapentin 300 mg Capsule 300 mg PO BID Qty: 0 RF: 0 multivitamin with minerals [Men's One Daily] Tablet 1 tab PO DAILY Qty: 0 RF: 0 Creon 24,000-76,000 -120,000 unit Capsule,Delayed Release(Dr/Ec) 1 cap PO TIDM Qty: 0 RF: 0 magnesium oxide 500 mg Tablet 500 mg PO QAM Qty: 0 RF: 0 atorvastatin [Lipitor] 40 mg Tablet 40 mg PO QAM Qty: 0 RF: 0 Lantus Solostar U-100 Insulin 100 unit/mL (3 mL) Insulin Pen 0 unit SUBCUT HS Qty: 0 RF: 0 oxycodone-acetaminophen [Percocet] 5-325 mg Tablet 1 tab PO Q4H PRN (Reason: Pain) RF: 0 albuterol sulfate [Ventolin HFA] 90 mcg/actuation Hfa Aerosol Inhaler 2 puff INHALATION QID PRN (Reason: Shortness Of Breath) RF: 0 insulin asp prt-insulin aspart [Novolog Mix 70-30FlexPen U-100] 100 unit/mL (70-30) Insulin Pen 0 unit SUBCUT UD RF: 0 budesonide-formoterol [Symbicort] 160-4.5 mcg/actuation HFA aerosol inhaler 2 inh INHALATION HS PRN (Reason: Shortness Of Breath) RF: 0 metoprolol tartrate 25 mg Tablet 25 mg PO BID RF: 0 hydralazine 10 mg Tablet 10 mg PO BID RF: 0 amlodipine 10 mg Tablet 5 mg PO QAM RF: 0 Referrals Referrals: PCP,NO [Primary Care Provider] - Discharge Problem: Fever Qualifiers: Fever type: unspecified Qualified Code(s): R50.9 - Fever, unspecified
[2020-07-25 12:19] LABS: Albumin Globulin Ratio 0.5 (0.9-2); Bilirubin,Total 0.3 mg/dl (0.2-1); Globulin 4.3 gm/dl (2.5-4.0); Total Protein 6.3 gm/dl (6.4-8.2)
[2020-07-25] MEDS ORDERED: VANCOMYCIN CONSULT ACTIVE PRN (12:50)
[2020-07-25] MEDS ORDERED: VANCOMYCIN HCL 2,000 MG in SODIUM CHLORIDE 0.9% 500 ML IV STA (12:50)
[2020-07-25] MEDS ORDERED: CEFEPIME 2,000 MG in SYRINGE 0 ML IV STA (12:51)
--- NOTE | 2020-07-25 12:56 | XRay Report ---
XR chest 1V portable HISTORY: hypoxia COMPARISON: Chest 06/23/2020. FINDINGS: No pneumothorax. No pleural effusions. The heart remains mildly enlarged. Left-sided dual-c hamber pacemaker. There is mild central pulmonary vascular congestion without overt edema. This is im proved. No new focal lung consolidations to suggest pneumonia. There are low lung volumes. IMPRESSION: Cardiomegaly with mild central pulmonary vascular congestion without overt edema. This has improved. ACT 112: Negative or not required by law. Electronically signed by: Joseph Boston M.D. 07/25/2020 12:55 PM
[2020-07-25 13:05] LABS: Appearance Urine Cloudy (Clear); Bacteria Urine Automated 3+ (Negative); Bilirubin Urine Negative (Negative); Blood Urine 3+ (Negative); Color Urine Orange; Glucose Urine UA Negative (Negative); Ketones Urine Negative (Negative); Leukocyte Esterase Urine 3+ (Negative); Nitrite Urine Negative (Negative); Specific Gravity Urine 1.011 (1.000-1.030); Urobilinogen Urine Negative (Negative); WBC Urine Automated >30 /hpf (0-5); pH Urine 7.5 (4.5-7.5)
[2020-07-25 13:15] LABS: Protein Urine 2+ (Negative); Sulfosalicylic Acid Urine Positive (Negative)
[2020-07-25 13:16] LABS: Magnesium 2.1 mg/dl (1.8-2.4)
[2020-07-25 13:16] LABS: RBC Urine Automated >30 /hpf (0-4)
[2020-07-25] MEDS ORDERED: CEFEPIME 2,000 MG/20 ML VIAL ONE (13:32)
[2020-07-25 14:10] LABS: INR 1.1 (0.9-1.1); Partial Thromboplastin Ratio 1.1; Partial Thromboplastin Time 29.3 Seconds (21.0-31.0); Prothrombin Time 11.5 Seconds (9.0-12.0)
--- NOTE | 2020-07-25 15:49 | History & Physical Report ---
Date of Service July 25, 2020 Assessment & Plan (1) Acute respiratory failure with hypoxia: 74 yo M with PMH acute renal failure on dialysis, insulin dependent type 2 diabetes, hypertension, hyperlipidemia, GERD, pancreatic insufficiency, history of cardiac pacemaker(bradyarrhythmia with GI bleed) who presents with fever and altered mental status along with hypoxia. Acute metabolic encephalopathy secondary to likely UTI and Sepsis - oriented, waxing and waning alertness - Qsofa sepsis criteria: febrile, hypoxic, altered mental status - UA drawn from nephrostomy bag showing LE, bacteria, WBC, like pyelonephritis given proximity to kidney - urine culture and blood cultures pending - Vanc, Cefepime empirically started for skin contamination of nephrostomy tube, pseudomonas/gram neg orgs Acute Hypoxic Respiratory Failure - new O2 requirement - likely secondary to sepsis - questionable hx COPD; long time smoker, started on symbicort and albuterol inhalers at [facility] in late june/early jul. - titrate down NC to O2 Sat > 88% - currently on 6L NC and stable ARF on Dialysis - recently attempted to place AV fistula in right arm - per , unable to place fistula but still has "plastic tubing" in arm - Cr 2.47, BUN 18 - renal dosing all meds - percocet for pain after fistula placement; held at this time given altered mental status. - dialysis T//S, will receive tomorrow morning - nephrology consult DM2 on Insulin - requires 30 units lantus HS at home - SSI ordered with 15 mg BID lantus - A1c 8.6 in june 2020 - diabetic diet HTN - continue hydralazine 10 bid, amlodipine 5 QAM, metoprolol 25 BID Pancreatic insufficiency -continue creon per home regimen with meals Hypothyroidism - continue levothyroxine; last TSH dec 2019 1.6 Peripheral Neuropathy - gabapentin held in setting of altered mental status but would restart in the morning to prevent withdrawal if mental status is improved CAD - daily ASA - Atorvastatin 40 AM History of permanent pacemaker placement-placed for symptomatic bradycardia in the setting of GI bleed DVT ppx: heparin 5,000 BID FEN/GI: diabetic diet Code Status: Full Code Dispo: Med/Surg with Tele (2) History of pacemaker: (3) Peripheral neuropathy: (4) Hypothyroidism (acquired): (5) Pancreatic insufficiency: (6) GERD (gastroesophageal reflux disease): (7) Hyperlipidemia LDL goal <70: (8) Hypertension: (9) Insulin-requiring or dependent type II diabetes mellitus: (10) Morbid obesity: (11) Smoker: (12) Acute renal failure on dialysis: (13) Pyelonephritis: (14) Fever: (15) Acute metabolic encephalopathy: History of Present Illness Patient is a 74-year-old man with a past medical history of acute renal failure on dialysis, insulin dependent type 2 diabetes, hypertension, hyperlipidemia, GERD, pancreatic insufficiency, history of cardiac pacemaker(bradyarrhythmia with GI bleed), brought to the ER by ambulance today due to Hypoxia at home. Patient states that he is cold but otherwise denies any acute issues. He states he mostly "came because my said something was wrong". Denies any pain, trouble breathing, lightheadedness at this time. He denies any change in appetite, fevers, night sweats. In discussion with his on the phone she states that yesterday he was in a severe amount of pain following a procedure to create an AV fistula in his right arm. He took 2 tabs of gabapentin at nighttime and took 1 5/325 Percocet every 4 hours during the day. She states this morning he started acting strangely and was noted to have an O2 level less than 90 when her home oxygen nurse came by to check on them. At that time she called the ambulance and had him brought to the hospital.Of note patient was recently discharged from [facility] on July 07. It is unknown if the patient was formally diagnosed with COPD at that time however he was sent home with his Symbicort inhaler as well as a Ventolin inhaler for shortness of breath. He does have an extensive smoking history. Primary Care Provider: NO PCP Allergies Allergy/AdvReac Type Severity Reaction Status Date / Time ASPIRIN (IN DOSES LARGER AdvReac Intermediate N/V Uncoded 07/25/20 15:05 THAN 81MG) Home Medications Home Medications Medication Instructions Recorded Confirmed Type Creon 1 cap PO TIDM #0 05/22/15 07/25/20 History aspirin 81 mg PO QAM #0 05/22/15 07/25/20 History gabapentin 300 mg PO BID #0 05/22/15 07/25/20 History grape seed extract 100 mg PO QPM #0 05/22/15 07/25/20 History levothyroxine 88 mcg PO QAM #0 05/22/15 07/25/20 History multivitamin with minerals [Men's 1 tab PO DAILY #0 05/22/15 07/25/20 History One Daily] Lantus Solostar U-100 Insulin 0 unit SUBCUT HS #0 pen 05/05/18 06/22/20 History atorvastatin [Lipitor] 40 mg PO QAM #0 tab 05/05/18 07/25/20 History magnesium oxide 500 mg PO QAM #0 05/05/18 07/25/20 History metoprolol tartrate 25 mg PO BID 12/29/19 07/25/20 History amlodipine 5 mg PO QAM 06/22/20 07/25/20 History hydralazine 10 mg PO BID 06/22/20 07/25/20 History albuterol sulfate [Ventolin HFA] 2 puff INHALATION QID PRN 07/25/20 07/25/20 History budesonide-formoterol [Symbicort] 2 inh INHALATION HS PRN 07/25/20 07/25/20 History insulin asp prt-insulin aspart 0 unit SUBCUT UD 07/25/20 07/25/20 History [Novolog Mix 70-30FlexPen U-100] oxycodone-acetaminophen [Percocet] 1 tab PO Q4H PRN 07/25/20 07/25/20 History Past Med/Surg History Medical History Acute renal failure on dialysis Agent [place] poisoning Chronic kidney disease, stage III (moderate) Chronic pancreatitis Elevated troponin GERD (gastroesophageal reflux disease) History of pacemaker Hyperlipidemia LDL goal <70 Hypertension Hypothyroidism (acquired) Insulin-requiring or dependent type II diabetes mellitus Morbid obesity Pancreatic insufficiency Peripheral neuropathy Smoker Surgical History History of permanent cardiac pacemaker placement Family History Other Family history non-contributory Social History Smoking Status: Current every day smoker Tobacco Type: Cigarettes Cigarettes Per Day: 15; Second Hand Exposure: No; Hx Alcohol Use: No Hx Substance Use: No Preferred Language: Kinyarwanda Communication Ability: Effective Communication Ability Comment: at times confused Computer Terminal Operator Required: No Beliefs That Will Affect Care: None marital status: Current Living Situation: Spouse Other Information That Helps Us Care for You: No Feels Safe at Home: Yes Safety Concerns: Feels Safe At This Time Assistive Devices: Glasses and Oxygen - Continuous Review of Systems Constitutional: + chills; no fever, no sweats, no fatigue, no weakness and no anorexia Respiratory: no cough, no dyspnea and no pain on inspiration Cardiovascular: no chest pain, no palpitations, no lightheadedness and no edema Gastrointestinal: no abdominal pain, no nausea, no vomiting, no hematemesis, no constipation, no diarrhea/loose stools and no blood in stools Genitourinary: no flank pain Neurologic: peripheral neuropathy Physical Exam Physical Exam: Constitutional: obese, chronically ill appearing, in no acute distress Eyes: EOMI, pupils pinpoint but equal and reactive bilaterally, no scleral icterus, Cardiac: intermittently tachycardic, no murmurs, gallops or rubs. Normal S1, S2, Pacemaker in place Pulm: poor air movement throughout, no focal wheezes/rhonchi/crackles Abd: soft, nontender, nondistended, normal bowel sounds, no rebound or guarding Extremities: 2+ peripheral pulses, no edema, no signs of infection near dialysis catheter Back: nephrostomy tube in place and draining Neuro: A&Ox3 though slow to respond to questions, strength equal bilaterally, Results & Data Results & Data ([facility]) Vital Signs (Past 12 Hours) Vital Signs Temp Pulse Resp BP Pulse Ox 07/25/20 15:00 60 18 171/71 H 92 07/25/20 14:30 61 19 192/71 H 97 07/25/20 14:00 61 20 183/75 H 93 07/25/20 13:35 60 19 172/93 H 98 07/25/20 12:06 95 07/25/20 12:01 60 21 89 L 07/25/20 11:40 38.3 C H 84 18 148/75 H 88 L Laboratory Results WBC 10.24 K/uL (4.8-10.8) 07/25/20 11:48 RBC 3.54 M/uL (4.7-6.1) L 07/25/20 11:48 Hgb 10.1 g/dL (14.0-18.0) L 07/25/20 11:48 Hct 34.5 % (42-52) L 07/25/20 11:48 MCV 97.5 fL (80-100) 07/25/20 11:48 MCH 28.5 pg (25-34) 07/25/20 11:48 MCHC 29.3 g/dL (32-36) L 07/25/20 11:48 RDW Std Deviation 58.8 fL (36.4-46.3) H 07/25/20 11:48 RDW Coeff of Hilda 16.4 % (11.5-14.5) H 07/25/20 11:48 Plt Count 347 K/uL (130-400) 07/25/20 11:48 MPV 9.4 fL (7.4-10.4) 07/25/20 11:48 Immature Gran % (Auto) 2.0 % 07/25/20 11:48 Neut % (Auto) 75.3 % 07/25/20 11:48 Lymph % (Auto) 10.7 % 07/25/20 11:48 [place] % (Auto) 9.5 % 07/25/20 11:48 Eos % (Auto) 2.2 % 07/25/20 11:48 Baso % (Auto) 0.3 % 07/25/20 11:48 Neut # (Auto) 7.71 K/uL (1.4-6.5) H 07/25/20 11:48 Lymph # (Auto) 1.10 K/uL (1.2-3.4) L 07/25/20 11:48 [place] # (Auto) 0.97 K/uL (0.11-0.59) H 07/25/20 11:48 Eos # (Auto) 0.23 K/uL (0-0.5) 07/25/20 11:48 Baso # (Auto) 0.03 K/uL (0-0.2) 07/25/20 11:48 Immature Gran # (Auto) 0.20 K/uL (0.00-0.02) H 07/25/20 11:48 Absolute Nucleated RBC 0.11 K/uL (0-0) H 07/25/20 11:48 Nucleated RBC % (auto) 1.1 % 07/25/20 11:48 PT 11.5 Seconds (9.0-12.0) 07/25/20 13:09 INR 1.1 (0.9-1.1) 07/25/20 13:09 APTT 29.3 Seconds (21.0-31.0) 07/25/20 13:09 PTT Ratio 1.1 07/25/20 13:09 Sodium 136 mmol/L (136-145) 07/25/20 11:48 Potassium 4.3 mmol/L (3.5-5.1) 07/25/20 11:48 Chloride 99 mmol/L (98-107) 07/25/20 11:48 Carbon Dioxide 29 mmol/L (21-32) 07/25/20 11:48 Anion Gap 8.0 (3-11) 07/25/20 11:48 BUN 18 mg/dl (7-18) 07/25/20 11:48 Creatinine 2.97 mg/dl (0.6-1.4) H 07/25/20 11:48 Est Cr Clr Drug Dosing 28.6 ml/min 07/25/20 11:48 Est GFR ( Amer) 23.3 07/25/20 11:48 Est GFR (Non-Af Amer) 20.1 07/25/20 11:48 BUN/Creatinine Ratio 6.2 (10-20) L 07/25/20 11:48 Glucose 130 mg/dl (70-99) H 07/25/20 11:48 Lactate 1.2 mmol/L (0.4-2.0) 07/25/20 12:53 Calcium 7.7 mg/dl (8.5-10.1) L 07/25/20 11:48 Magnesium 2.1 mg/dl (1.8-2.4) 07/25/20 11:48 Total Bilirubin 0.3 mg/dl (0.2-1) 07/25/20 11:48 AST 46 U/L (15-37) H 07/25/20 11:48 ALT 21 U/L (12-78) 07/25/20 11:48 Alkaline Phosphatase 122 U/L (45-117) H 07/25/20 11:48 C-Reactive Protein 7.73 mg/dl (0-0.29) H 07/25/20 11:48 Total Protein 6.3 gm/dl (6.4-8.2) L 07/25/20 11:48 Albumin 2.0 gm/dl (3.4-5.0) L 07/25/20 11:48 Globulin 4.3 gm/dl (2.5-4.0) H 07/25/20 11:48 Albumin/Globulin Ratio 0.5 (0.9-2) L 07/25/20 11:48 Specimen Hemolysis 07/25/20 11:48 Urine Color [place] 07/25/20 12:53 Urine Appearance Cloudy (Clear) A 07/25/20 12:53 Urine pH 7.5 (4.5-7.5) 07/25/20 12:53 Ur Specific [place] 1.011 (1.000-1.030) 07/25/20 12:53 Urine Protein 2+ (Negative) H 07/25/20 12:53 Urine Glucose (UA) Negative (Negative) 07/25/20 12:53 Urine Ketones Negative (Negative) 07/25/20 12:53 Urine Blood 3+ (Negative) H 07/25/20 12:53 Urine Nitrite Negative (Negative) 07/25/20 12:53 Urine Bilirubin Negative (Negative) 07/25/20 12:53 Urine Urobilinogen Negative (Negative) 07/25/20 12:53 Ur Leukocyte Esterase 3+ (Negative) H 07/25/20 12:53 Urine WBC (Auto) >30 /hpf (0-5) H 07/25/20 12:53 Urine RBC (Auto) >30 /hpf (0-4) H 07/25/20 12:53 U Hyaline Cast (Auto) 1-5 /lpf (0-5) 07/25/20 12:53 U Epithel Cells (Auto) 5-10 /lpf (0-5) H 07/25/20 12:53 Urine Bacteria (Auto) 3+ (Negative) H 07/25/20 12:53 Urine Yeast Not Reportable 07/25/20 12:53 COVID-19 Eval Order Covid19 Done at [facility] 07/25/20 12:53 COVID-19 PCR NEGATIVE (Negative) 07/25/20 12:53 Supervising Physician Co-Signing Physician Notes I personally examined the patient and verified all vargas points of history and exam, discussed case, and agree with decision making with Dr. Richardson with the following additions/exceptions: This patient is a 74-year-old male with a history of recent acute kidney injury resulting in need for right-sided nephrostomy tube and starting on dialysis. He has a permanent catheter in the right femoral and had an attempted AV fistula formation of the right upper extremity recently. He also has a history of DM 2, HTN, GERD, pancreatic insufficiency, CAD, hypothyroidism, permanent pacemaker. He presented today due to lethargy and hypoxia at home and was found to have a fever in the ER and a UTI with urine sample from his nephrostomy tube. He was drowsy and intermittently confused in the ER, and stated that he was cold and had the chills, but otherwise denied abdominal pain or chest pain, no shortness of breath or cough. He will be admitted for sepsis due to UTI, and acute respiratory failure with hypoxia. History and ROS reviewed Vitals reviewed Gen: Awake but drowsy, able to answer questions but slow to respond, NAD HEENT: Anicteric sclerae, EOMI, PERRL CV: RRR no mgr nl S1S2 Pulm: CTAB no wcr Abd: +BS soft NT ND no masses or hernias, right-sided nephrostomy tube in place, urine is dark yellow and somewhat cloudy in appearance in the bag Ext: Right upper extremity with Luis wrap in place over AV fistula site, right groin with PermCath in place with some scant serous staining on the dressing, but no surrounding erythema, 2+ DP pulses Skin: Toes and feet with thick scaling dry skin and a callus on the right first MTP plantar surface but otherwise no wounds or rashes, warm/dry Neuro: Full strength throughout Laboratory values and imaging reviewed ECG reviewed 74-year-old male with history as above, here with fever and acute respiratory failure with hypoxia, likely secondary to UTI, with sepsis, POA. Also with ac [place] metabolic encephalopathy. Source of infection most likely UTI. Chest x-ray negative for pneumonia,PermCath site looks okay and right groin and AV fistula surgical site of the right upper extremity as per ER physician examination does not appear infected. -Admit for IV antibiotics broad-spectrum with continuing vancomycin and cefepime. Vancomycin to be dosed based on random troughs by pharmacy in the setting of dialysis. Follow urine culture and blood cultures Check CT the chest/abdomen/pelvis to make sure nephrostomy tube in place, no other source of intra-abdominal infection. Hopeful that encephalopathy will improve with treatment of infection. Do not suspect meningitis or encephalitis. -We will consult nephrology for routine dialysis-no urgent need for dialysis at this time Follow BMP, CBC, procalcitonin Resident Activity Tracking Resident Involvement: Resident Care Provided Care Provided: Adult Hospital Medicine (1) Fever Fever type: unspecified Qualified Code(s): R50.9 - Fever, unspecified
--- NOTE | 2020-07-25 16:52 | CT Scan Report ---
CT chest wo con CT DOSE: 3137.27 mGy.cm HISTORY: Increased oxygen requirement. Shortness of breath. TECHNIQUE: Multiaxial CT images of the chest were performed without contrast. A dose lowering techni que was utilized adhering to the principles of ALARA. COMPARISON: None. FINDINGS: Mild respiratory motion artifact. Trace left pleural effusion. No pericardial effusion. The heart is borderline enlarged. Left-sided dual-chamber pacemaker. Mild calcified plaque within the no rmal caliber thoracic aorta. Please refer to the same day abdomen and pelvis CT for further evaluatio n of the abdominal structures. No mediastinal or hilar lymphadenopathy. Normal esophagus. No suspicio us lytic or blastic osseous lesions. Mild elevation of the right hemidiaphragm. No pneumothorax. Trac e mucoid material within the trachea. Otherwise, the remaining central airways are patent. Mild emphy sema. No evidence for pulmonary edema. Bibasilar linear densities likely represent subsegmental atele ctasis. Small focal areas of consolidation within the lower lobe posteriorly also favor atelectasis. IMPRESSION: 1. Trace left pleural effusion. 2. Mild emphysema. 3. Mild elevation of the right hemidiaphragm. 4. Bibasilar linear densities are nonspecific but favor subsegmental atelectasis. 5. Please refer to the same day abdomen and pelvis CT for further evaluation of the abdominal structu res. ACT 112: Negative or not required by law. Electronically signed by: Joseph Boston M.D. 07/25/2020 4:51 PM
--- NOTE | 2020-07-25 16:57 | CT Scan Report ---
CT SCAN OF THE ABDOMEN AND PELVIS WITHOUT IV CONTRAST CLINICAL HISTORY: Pyelonephritis. COMPARISON STUDY: Abdominal CT dated 06/22/2020. TECHNIQUE: CT scan of the abdomen and pelvis is performed from the lung bases to the proximal femora. Images are reviewed in the axial, sagittal, and coronal planes. IV contrast was not administered for this examination as per the referring clinician. Note that the examination was performed in suboptim al fashion without IV contrast. The examination is also degraded motion artifact, and by streak artif act from the arms which could not be elevated above the abdomen. A dose lowering technique was utiliz ed adhering to the principles of ALARA. FINDINGS: Lung bases: The heart is enlarged and without pericardial effusion. Pacemaker leads are noted. There are trace pleural effusions with dependent atelectasis. No airspace consolidation is identified typic al for pneumonia. A small hiatal hernia is observed. Liver: Evaluation of the liver is degraded by streak artifact. The unenhanced liver is normal in size , contour, and attenuation. There is no intrahepatic biliary ductal dilatation. Gallbladder: There are calcified gallstones without CT evidence of acute cholecystitis. Spleen: Normal in size and attenuation. Pancreas: The unenhanced pancreas is atrophic. There is extensive peripheral calcification consistent with chronic pancreatitis. There is dilatation of the pancreatic duct, with large calculi present wi thin the main duct near the ampulla. These findings are similar to previous. Adrenal glands: Unremarkable. Kidneys: The unenhanced kidneys demonstrate cortical atrophy. A percutaneous nephrostomy tube and a u reteral stent are present on the right. There is only mild right-sided hydronephrosis. Nonspecific fo ci of gas are present within the right renal collecting system. A 3 mm nonobstructing calculus is see n in the right upper pole. No calcifications are seen in the right ureter along the course of the rey nt. No left renal calculi are identified. There is no left-sided hydronephrosis. There is right-sided perinephric stranding. There is no evidence of contour deforming renal mass lesion. Abdominal vasculature: The abdominal aorta is normal in course and caliber noting moderate to advance d atherosclerotic calcification. A right femoral central venous catheter is in place. The tip termina stew in the IVC just below the diaphragm. Bowel: There is moderate constipation. No bowel obstruction is seen. There are scattered colonic dive rticula without CT evidence of acute diverticulitis. The appendix is well-visualized and normal. Peritoneum: There is no intraperitoneal free air or abdominal ascites. Lymphadenopathy: None. Pelvic viscera: The prostate gland is enlarged and heterogeneous noting median lobe hypertrophy. The bladder wall is thickened and irregular and there is pericystic inflammation. Foci of intraluminal ga s are noted. The tip of a right ureteral stent is seen within the bladder lumen. Skeletal structures: The skeletal structures are osteopenic. There is mild lumbosacral spondylosis. N o lytic or blastic lesions are seen. IMPRESSION: 1. Suboptimal examination without IV contrast. The examination is also compromised by streak and cristina on 2. A percutaneous nephrostomy tube and ureteral stent are present on the right. There is mild right-s ided hydronephrosis. No calculus is identified in the right ureter along the course of the stent. 3. Nonspecific gas is present in the right renal collecting system and there is right-sided perinephr ic stranding. These findings may be related to instrumentation. Correlate clinically and with urinaly sis for evidence of urinary tract infection/pyelonephritis. 4. The bladder wall is thickened and there is pericystic inflammation and intraluminal gas. As above, these findings may be related to instrumentation. Correlate clinically and urinalysis for evidence o f cystitis. 5. Cardiomegaly and trace pleural effusions. 6. A nonobstructing calculus is seen in the right upper pole. No left renal calculi are identified. 7. Findings are consistent with chronic pancreatitis. Large calculi are present within the pancreatic duct at the ampulla with upstream dilatation. This is similar to previous. 8. Cholelithiasis without CT evidence of acute cholecystitis. 9. Moderate constipation. 10. Additional findings as above. ACT 112: Negative or not required by law. Electronically signed by: Jaquan Damon M.D. 07/25/2020 4:56 PM
[2020-07-25] MEDS ORDERED: ACETAMINOPHEN 325 MG TAB PO PRN ×2 (17:06→17:11)
[2020-07-25] MEDS ORDERED: POLYETHYLENE (MIRALAX) 17 GM PACK PO PRN (17:11)
[2020-07-25] MEDS ORDERED: FLUTICASONE/VILANTEROL 100/25MCG 14 PUFFS/INHALER INH PRN (17:11)
[2020-07-25] MEDS ORDERED: MAGNESIUM HYDROXIDE SUSP 30 ML UDC PO PRN (17:11)
[2020-07-25] MEDS ORDERED: CARBOHYDRATES FOR HYPOGLYCEMIA PO PRN (17:11)
[2020-07-25] MEDS ORDERED: ALBUTEROL HFA 8 GM INHALER INH PRN (17:11)
[2020-07-25] MEDS ORDERED: GLUCAGON FOR INJ 1 MG VIAL SQ PRN (17:11)
[2020-07-25] MEDS ORDERED: GLUCOSE 40% GEL 15 GM TUBE PO PRN (17:11)
[2020-07-25] MEDS ORDERED: DEXTROSE 50% 50 ML SYRINGE IV PRN (17:11)
[2020-07-25] MEDS ORDERED: GLUCOSE 10 TABS/TUBE PO PRN (17:11)
[2020-07-25] MEDS: INSULIN ASPART 100 UNITS/ML 3 ML PEN SC SCH ×2 (18:32→20:13)
[2020-07-25] MEDS: PANCREAZE (LIPASE 10,500U) CAP PO SCH (18:32)
--- NOTE | 2020-07-25 18:57 | Billing Data ---
Date of Service July 25, 2020 Coding Level of Care Code 64722 Initial Inpt Care Lvl 3
[2020-07-25] MEDS: oxyCODONE/ACETAMINOPHEN 5mg/325mg TAB PO PRN (20:09)
[2020-07-25] MEDS: GABAPENTIN 300 MG CAP PO SCH (20:10)
[2020-07-25] MEDS: hydrALAZINE 10 MG TAB PO SCH (20:10)
[2020-07-25] MEDS: METOPROLOL TARTRATE 25 MG TAB PO SCH (20:10)
[2020-07-25] MEDS: HEPARIN SOD 5,000 UNIT/0.5 ML VIAL SQ SCH (20:13)
[2020-07-25] MEDS: INSULIN GLARGINE SOLOSTAR 100 UNITS/ML 3 ML PEN SC SCH (20:14)
--- NOTE | 2020-07-25 20:21 | Pharmacy Report ---
Pharmacy Abx Dose Short Note - Date of Service July 25, 2020 - Assessment & Plan Assessment 74 year old M receiving IV Vancomycin and Cefepime (not a consult) for treatment of UTI, skin contamination of nephrostomy tube Day # 1 of antimicrobial therapy. * Patient with ESRD on HD TuThSa; next HD is supposed to be tomorrow, but not yet ordered; Nephrology consult pending * He received Vancomycin 2000mg (~17mg/kg) IV x 1 in the ED as a loading dose earlier today at 1340 Plan Vancomycin * Vancomycin will be dosed prn based on random levels given HD status * Goal trough level for UTI/sepsis : 15 to 20 mcg/mL * Random level ordered for: 07/26/20 with AM labs Pharmacy will continue to follow and will adjust dose/frequency as necessary. Thank you.
[2020-07-25] MEDS ORDERED: MICONAZOLE NITRATE POWDER 43 GM EXT PRN (20:42)
[2020-07-26] MEDS: ALBUMIN 25% 50 ML IV SCH ×2 (00:04→01:12)
[2020-07-26] MEDS: LEVOTHYROXINE SODIUM 88 MCG TABLET PO SCH (05:47)
[2020-07-26 07:10] LABS: Basophils # (auto) 0.03 K/uL (0-0.2); Basophils % (auto) 0.3 %; Eosinophils # (auto) 0.31 K/uL (0-0.5); Eosinophils % (auto) 3.2 %; Hematocrit (blood only) 35.8 % (42-52); Hemoglobin 10.7 g/dL (14.0-18.0); Immature Granulocytes # (auto) 0.14 K/uL (0.00-0.02); Immature Granulocytes % (auto) 1.4 %; Lymphocytes % (auto) 15.5 %; Mean Corpuscular Hemoglobin 29.2 pg (25-34); Mean Corpuscular Hgb Conc 29.9 g/dL (32-36); Mean Corpuscular Volume 97.8 fL (80-100); Mean Platelet Volume 9.3 fL (7.4-10.4); Monocytes # (auto) 0.75 K/uL (0.11-0.59); Monocytes % (auto) 7.8 %; Neutrophils # (auto) 6.93 K/uL (1.4-6.5); Neutrophils % (auto) 71.8 %; Nucleated RBC # (auto) 0.03 K/uL (0-0); Nucleated RBC % (auto) 0.3 %; Platelet Count 348 K/uL (130-400); RDW Coefficient of Variation 16.8 % (11.5-14.5); RDW Standard Deviation 59.5 fL (36.4-46.3); Red Blood Count 3.66 M/uL (4.7-6.1); White Blood Count 9.66 K/uL (4.8-10.8)
[2020-07-26 07:40] LABS: BUN Creatinine Ratio 8.6 (10-20); Calcium 8.4 mg/dl (8.5-10.1); Creatinine Clr Calc Pharmacy 26.5 ml/min; Est GFR (African American) 21.8; Est GFR (Non-African American) 18.8; Potassium 4.2 mmol/L (3.5-5.1)
[2020-07-26] MEDS: ATORVASTATIN 40 MG TAB PO SCH (08:02)
[2020-07-26] MEDS: PANCREAZE (LIPASE 10,500U) CAP PO SCH ×3 (08:02→16:52)
[2020-07-26] MEDS: METOPROLOL TARTRATE 25 MG TAB PO SCH ×2 (08:02→20:31)
[2020-07-26] MEDS: ASPIRIN 81 MG ECTAB PO SCH (08:02)
[2020-07-26] MEDS: hydrALAZINE 10 MG TAB PO SCH ×2 (08:02→20:30)
[2020-07-26] MEDS: MAGNESIUM OXIDE 400 MG TAB PO SCH (08:02)
[2020-07-26] MEDS: amLODIPine BESYLATE 5 MG TAB PO SCH (08:03)
[2020-07-26] MEDS: GABAPENTIN 300 MG CAP PO SCH ×2 (08:03→20:30)
[2020-07-26] MEDS: CEROVITE ADV FORMULA TAB PO SCH (08:03)
[2020-07-26] MEDS: HEPARIN SOD 5,000 UNIT/0.5 ML VIAL SQ SCH ×2 (08:05→20:31)
[2020-07-26] MEDS: INSULIN ASPART 100 UNITS/ML 3 ML PEN SC SCH ×4 (08:07→20:31)
[2020-07-26] MEDS: INSULIN GLARGINE SOLOSTAR 100 UNITS/ML 3 ML PEN SC SCH ×2 (08:08→20:31)
--- NOTE | 2020-07-26 11:58 | Nephrology Consultation ---
Date of Consultation July 26, 2020 Assessment & Plan (1) Acute renal failure on dialysis: Creatinine fairly stable at ~3 mg/dL. Electrolytes acceptable. Adequate urine output. Volume status reasonable. Will hold HD today. 24 hour creatinine clearance requested. AVG will need to be undressed and evaluated. Femoral catheter exit site appears clean. No systemic signs or symptoms of infection. No emergent indication to remove catheter. (2) Chronic kidney disease, stage III (moderate): Baseline creatinine 2.0 mg/dL. AVG placed last week for anticipated future use but not yet cleared for use. (3) Acute respiratory failure with hypoxia: Improving. Chest CT reviewed and CXR. Volume status reasonable and O2 requirement improving. Continue to monitor. (4) UTI (urinary tract infection): Started on cefepime and Vanco. Dosing appropriate for kidney function. Defer to urology regarding PCN management. (5) Bacteremia: Monitor daily vanco level and redose as needed. No anticipated HD today. History of Present Illness Reason for Consultation: JIMMY, REPAIR COIL WINDER Requesting Physician: Spencer Meng Attending Physician: Spencer Meng History of Present Illness Mr. 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 baseline creatinine have been documented at 2 milligram/deciliter prior to recent episode of acute kidney injury. Palomo was admitted to [facility] from June 22- prior to transfer to [facility]. He presented to the hospital with decreased urine output and dysuria. Imaging revealed an atrophic left kidney and moderate hydronephrosis on the right. Cystoscopy with stent placement was unsuccessful and Palomo was transferred to [facility] for percutaneous nephrostomy tube placement. Unfortunately, renal function worsened requiring initiation of dialysis. Since discharge from the hospital, he has been maintained on TTS HD at [facility] under the care of Dr. Howell. There were two attempts at R IJ TDC placement but neither functioned well. The Left IJ was avoided due to pacer placement. A left femoral HD catheter was then placed by Dr. Bonilla which has been functioning well. Dr. Bonilla then placed an AV graft in the left arm on 07/21/20. There were no complications with the procedure. R PCN has been draining an ample amount of urine. Urine output from the bladder has been decreased. Creatinine was relatively stable at 2.73 mg/dL last week. Dr. Howell requested a 24 hour urine but Palomo and his had difficulty with the collection. IDWG has been minimal. I called and discussed the patient with nursing staff at [facility] today. There has been evidence of renal recovery. Palomo completed his most recent treatment on Saturday without complications. Since admission to [facility] yesterday, fevers have defervesced and mental status improved. The patient was seen and evaluated with his at the bedside. Blood cultures + GPC in chains. Urine from PCN growing gram negative rods. Allergies Allergy/AdvReac Type Severity Reaction Status Date / Time ASPIRIN (IN DOSES LARGER AdvReac Intermediate N/V Uncoded 07/25/20 15:05 THAN 81MG) Home Medications Home Medications Medication Instructions Recorded Confirmed Type Creon 1 cap PO TIDM #0 05/22/15 07/25/20 History aspirin 81 mg PO QAM #0 05/22/15 07/25/20 History gabapentin 300 mg PO BID #0 05/22/15 07/25/20 History grape seed extract 100 mg PO QPM #0 05/22/15 07/25/20 History levothyroxine 88 mcg PO QAM #0 05/22/15 07/25/20 History multivitamin with minerals [Men's 1 tab PO DAILY #0 05/22/15 07/25/20 History One Daily] Lantus Solostar U-100 Insulin 0 unit SUBCUT HS #0 pen 05/05/18 06/22/20 History atorvastatin [Lipitor] 40 mg PO QAM #0 tab 05/05/18 07/25/20 History magnesium oxide 500 mg PO QAM #0 05/05/18 07/25/20 History metoprolol tartrate 25 mg PO BID 12/29/19 07/25/20 History amlodipine 5 mg PO QAM 06/22/20 07/25/20 History hydralazine 10 mg PO BID 06/22/20 07/25/20 History albuterol sulfate [Ventolin HFA] 2 puff INHALATION QID PRN 07/25/20 07/25/20 History budesonide-formoterol [Symbicort] 2 inh INHALATION HS PRN 07/25/20 07/25/20 History insulin asp prt-insulin aspart 0 unit SUBCUT UD 07/25/20 07/25/20 History [Novolog Mix 70-30FlexPen U-100] oxycodone-acetaminophen [Percocet] 1 tab PO Q4H PRN 07/25/20 07/25/20 History Patient History Medical History Acute renal failure on dialysis Agent Paul poisoning Chronic kidney disease, stage III (moderate) Chronic pancreatitis Elevated troponin GERD (gastroesophageal reflux disease) History of pacemaker Hyperlipidemia LDL goal <70 Hypertension Hypothyroidism (acquired) Insulin-requiring or dependent type II diabetes mellitus Morbid obesity Pancreatic insufficiency Peripheral neuropathy Smoker Surgical History History of permanent cardiac pacemaker placement Family History Other Family history non-contributory Social History Smoking Status: Current every day smoker Tobacco Type: Cigarettes Cigarettes Per Day: 15; Second Hand Exposure: No; Hx Alcohol Use: No Hx Substance Use: No Preferred Language: Greek Communication Ability: Effective Communication Ability Comment: at times confused Purchasing Supervisor Required: No Beliefs That Will Affect Care: None marital status: Current Living Situation: Spouse Other Information That Helps Us Care for You: No Feels Safe at Home: Yes Safety Concerns: Feels Safe At This Time Assistive Devices: Glasses and Oxygen - Continuous Review of Systems Review of Systems: All systems reviewed & are unremarkable except as noted in HPI & below Physical Exam Constitutional: well developed and + obese; no acute distress Eyes: + anicteric sclerae; no corneal abnormality ENMT: Mouth: no oral mucosal abnormality and oral mucous membranes not dry Neck: normal visual inspection and trachea midline Respiratory: normal respiratory effort Auscultation: lungs clear to auscultation bilaterally Cardiovascular: Rate/Rhythm: regular rate Heart Sounds: normal S1 and normal S2 Extremities: + AV fistula (R BC AVG with thrill and bruit - wrapped with pressure dressing); no edema Musculoskeletal: Extremities: no cyanosis and no clubbing Skin: normal turgor; no lesions Neurologic: Motor/Sensory: no tremor and no asterixis Psychiatric: Orientation: alert and oriented x 3 Genitourinary: R PCN draining cloudy yellow urine Results & Data ([facility]) Vital Signs (Past 12 Hours) Vital Signs Temp Pulse Pulse Resp BP Pulse Ox 07/26/20 11:31 36.9 C 60 18 149/67 H 94 07/26/20 07:16 36.7 C 60 18 148/71 H 91 07/26/20 06:20 60 07/26/20 04:49 93 07/26/20 04:03 37 C 59 L 20 115/51 L 91 07/26/20 01:00 62 Laboratory Results Laboratory Results - last 24 hr 07/25/20 07/25/20 07/25/20 11:48 11:48 12:53 WBC RBC Hgb Hct MCV MCH MCHC RDW Std Deviation RDW Coeff of Hilda Plt Count MPV Immature Gran % (Auto) Neut % (Auto) Lymph % (Auto) Crawford % (Auto) Eos % (Auto) Baso % (Auto) Neut # (Auto) Lymph # (Auto) Crawford # (Auto) Eos # (Auto) Baso # (Auto) Immature Gran # (Auto) Absolute Nucleated RBC Nucleated RBC % (auto) PT INR APTT PTT Ratio Sodium 136 Potassium 4.3 Chloride 99 Carbon Dioxide 29 Anion Gap 8.0 BUN 18 Creatinine 2.97 H Est Cr Clr Drug Dosing 28.6 Est GFR ( Amer) 23.3 Est GFR (Non-Af Amer) 20.1 BUN/Creatinine Ratio 6.2 L Glucose 130 H POC Glucose Lactate 1.2 Calcium 7.7 L Magnesium 2.1 Total Bilirubin 0.3 AST 46 H ALT 21 Alkaline Phosphatase 122 H C-Reactive Protein 7.73 H Total Protein 6.3 L Albumin 2.0 L Globulin 4.3 H Albumin/Globulin Ratio 0.5 L Procalcitonin Specimen Hemolysis Urine Color Urine Appearance Urine pH Ur Specific Drummond Urine Protein Urine Glucose (UA) Urine Ketones Urine Blood Urine Nitrite Urine Bilirubin Urine Urobilinogen Ur Leukocyte Esterase Urine WBC (Auto) Urine RBC (Auto) U Hyaline Cast (Auto) U Epithel Cells (Auto) Urine Bacteria (Auto) Urine Yeast Nasal Screen MRSA (PCR) Random Vancomycin COVID-19 Eval Order COVID-19 PCR 07/25/20 07/25/20 07/25/20 12:53 12:53 12:53 WBC RBC Hgb Hct MCV MCH MCHC RDW Std Deviation RDW Coeff of Hilda Plt Count MPV Immature Gran % (Auto) Neut % (Auto) Lymph % (Auto) Crawford % (Auto) Eos % (Auto) Baso % (Auto) Neut # (Auto) Lymph # (Auto) Crawford # (Auto) Eos # (Auto) Baso # (Auto) Immature Gran # (Auto) Absolute Nucleated RBC Nucleated RBC % (auto) PT INR APTT PTT Ratio Sodium Potassium Chloride Carbon Dioxide Anion Gap BUN Creatinine Est Cr Clr Drug Dosing Est GFR ( Amer) Est GFR (Non-Af Amer) BUN/Creatinine Ratio Glucose POC Glucose Lactate Calcium Magnesium Total Bilirubin AST ALT Alkaline Phosphatase C-Reactive Protein Total Protein Albumin Globulin Albumin/Globulin Ratio Procalcitonin Specimen Hemolysis Urine Color Paul Urine Appearance Cloudy A Urine pH 7.5 Ur Specific Drummond 1.011 Urine Protein 2+ H Urine Glucose (UA) Negative Urine Ketones Negative Urine Blood 3+ H Urine Nitrite Negative Urine Bilirubin Negative Urine Urobilinogen Negative Ur Leukocyte Esterase 3+ H Urine WBC (Auto) >30 H Urine RBC (Auto) >30 H U Hyaline Cast (Auto) 1-5 U Epithel Cells (Auto) 5-10 H Urine Bacteria (Auto) 3+ H Urine Yeast Not Reportable Nasal Screen MRSA (PCR) Random Vancomycin COVID-19 Eval Order Covid19 Done at [facility] COVID-19 PCR NEGATIVE 07/25/20 07/25/20 07/25/20 13:09 17:23 19:54 WBC RBC Hgb Hct MCV MCH MCHC RDW Std Deviation RDW Coeff of Hilda Plt Count MPV Immature Gran % (Auto) Neut % (Auto) Lymph % (Auto) Crawford % (Auto) Eos % (Auto) Baso % (Auto) Neut # (Auto) Lymph # (Auto) Crawford # (Auto) Eos # (Auto) Baso # (Auto) Immature Gran # (Auto) Absolute Nucleated RBC Nucleated RBC % (auto) PT 11.5 INR 1.1 APTT 29.3 PTT Ratio 1.1 Sodium Potassium Chloride Carbon Dioxide Anion Gap BUN Creatinine Est Cr Clr Drug Dosing Est GFR ( Amer) Est GFR (Non-Af Amer) BUN/Creatinine Ratio Glucose POC Glucose 144 H 159 H Lactate Calcium Magnesium Total Bilirubin AST ALT Alkaline Phosphatase C-Reactive Protein Total Protein Albumin Globulin Albumin/Globulin Ratio Procalcitonin Specimen Hemolysis Urine Color Urine Appearance Urine pH Ur Specific Drummond Urine Protein Urine Glucose (UA) Urine Ketones Urine Blood Urine Nitrite Urine Bilirubin Urine Urobilinogen Ur Leukocyte Esterase Urine WBC (Auto) Urine RBC (Auto) U Hyaline Cast (Auto) U Epithel Cells (Auto) Urine Bacteria (Auto) Urine Yeast Nasal Screen MRSA (PCR) Random Vancomycin COVID-19 Eval Order COVID-19 PCR 07/25/20 07/26/20 07/26/20 19:55 06:54 06:54 WBC 9.66 RBC 3.66 L Hgb 10.7 L Hct 35.8 L MCV 97.8 MCH 29.2 MCHC 29.9 L RDW Std Deviation 59.5 H RDW Coeff of Hilda 16.8 H Plt Count 348 MPV 9.3 Immature Gran % (Auto) 1.4 Neut % (Auto) 71.8 Lymph % (Auto) 15.5 Crawford % (Auto) 7.8 Eos % (Auto) 3.2 Baso % (Auto) 0.3 Neut # (Auto) 6.93 H Lymph # (Auto) 1.50 Crawford # (Auto) 0.75 H Eos # (Auto) 0.31 Baso # (Auto) 0.03 Immature Gran # (Auto) 0.14 H Absolute Nucleated RBC 0.03 H Nucleated RBC % (auto) 0.3 PT INR APTT PTT Ratio Sodium Potassium Chloride Carbon Dioxide Anion Gap BUN Creatinine Est Cr Clr Drug Dosing Est GFR ( Amer) Est GFR (Non-Af Amer) BUN/Creatinine Ratio Glucose POC Glucose Lactate Calcium Magnesium Total Bilirubin AST ALT Alkaline Phosphatase C-Reactive Protein Total Protein Albumin Globulin Albumin/Globulin Ratio Procalcitonin Specimen Hemolysis Urine Color Urine Appearance Urine pH Ur Specific Drummond Urine Protein Urine Glucose (UA) Urine Ketones Urine Blood Urine Nitrite Urine Bilirubin Urine Urobilinogen Ur Leukocyte Esterase Urine WBC (Auto) Urine RBC (Auto) U Hyaline Cast (Auto) U Epithel Cells (Auto) Urine Bacteria (Auto) Urine Yeast Nasal Screen MRSA (PCR) Negative Random Vancomycin 13.8 COVID-19 Eval Order COVID-19 PCR 07/26/20 07/26/20 07/26/20 06:54 06:54 07:21 WBC RBC Hgb Hct MCV MCH MCHC RDW Std Deviation RDW Coeff of Hilda Plt Count MPV Immature Gran % (Auto) Neut % (Auto) Lymph % (Auto) Crawford % (Auto) Eos % (Auto) Baso % (Auto) Neut # (Auto) Lymph # (Auto) Crawford # (Auto) Eos # (Auto) Baso # (Auto) Immature Gran # (Auto) Absolute Nucleated RBC Nucleated RBC % (auto) PT INR APTT PTT Ratio Sodium 140 Potassium 4.2 Chloride 102 Carbon Dioxide 30 Anion Gap 8.0 BUN 27 H Creatinine 3.13 H Est Cr Clr Drug Dosing 26.5 Est GFR ( Amer) 21.8 Est GFR (Non-Af Amer) 18.8 BUN/Creatinine Ratio 8.6 L Glucose 106 H POC Glucose 93 Lactate Calcium 8.4 L Magnesium Total Bilirubin AST ALT Alkaline Phosphatase C-Reactive Protein Total Protein Albumin Globulin Albumin/Globulin Ratio Procalcitonin 0.91 H Specimen Hemolysis Urine Color Urine Appearance Urine pH Ur Specific Drummond Urine Protein Urine Glucose (UA) Urine Ketones Urine Blood Urine Nitrite Urine Bilirubin Urine Urobilinogen Ur Leukocyte Esterase Urine WBC (Auto) Urine RBC (Auto) U Hyaline Cast (Auto) U Epithel Cells (Auto) Urine Bacteria (Auto) Urine Yeast Nasal Screen MRSA (PCR) Random Vancomycin COVID-19 Eval Order COVID-19 PCR 07/26/20 11:39 WBC RBC Hgb Hct MCV MCH MCHC RDW Std Deviation RDW Coeff of Hilda Plt Count MPV Immature Gran % (Auto) Neut % (Auto) Lymph % (Auto) Crawford % (Auto) Eos % (Auto) Baso % (Auto) Neut # (Auto) Lymph # (Auto) Crawford # (Auto) Eos # (Auto) Baso # (Auto) Immature Gran # (Auto) Absolute Nucleated RBC Nucleated RBC % (auto) PT INR APTT PTT Ratio Sodium Potassium Chloride Carbon Dioxide Anion Gap BUN Creatinine Est Cr Clr Drug Dosing Est GFR ( Amer) Est GFR (Non-Af Amer) BUN/Creatinine Ratio Glucose POC Glucose 117 H Lactate Calcium Magnesium Total Bilirubin AST ALT Alkaline Phosphatase C-Reactive Protein Total Protein Albumin Globulin Albumin/Globulin Ratio Procalcitonin Specimen Hemolysis Urine Color Urine Appearance Urine pH Ur Specific Drummond Urine Protein Urine Glucose (UA) Urine Ketones Urine Blood Urine Nitrite Urine Bilirubin Urine Urobilinogen Ur Leukocyte Esterase Urine WBC (Auto) Urine RBC (Auto) U Hyaline Cast (Auto) U Epithel Cells (Auto) Urine Bacteria (Auto) Urine Yeast Nasal Screen MRSA (PCR) Random Vancomycin COVID-19 Eval Order COVID-19 PCR PG Care Time/CCT Total # of Minutes Spent Total Time Spent with Patient: Total time spent is greater than 50% in coord ination of care (as documented) at patient's floor/unit and/or counseling patient: Coding Level of Care Code 91630 Inpt Consult Level 4 Diagnoses Acute renal failure on dialysis N17.9; Z99.2 Chronic kidney disease, stage III (moderate) N18.3 Acute respiratory failure with hypoxia J96.01 UTI (urinary tract infection) N39.0 Bacteremia R78.81
[2020-07-26] MEDS: oxyCODONE/ACETAMINOPHEN 5mg/325mg TAB PO PRN ×2 (12:00→23:35)
--- NOTE | 2020-07-26 13:06 | XCELERA ---
[id number]
[2020-07-26] MEDS: CEFEPIME 2,000 MG in SYRINGE 0 ML IV SCH (13:55)
[2020-07-26] MEDS ORDERED: VANCOMYCIN HCL 1,000 MG in SODIUM CHLORIDE 0.9% 250 ML IV ONE (14:00)
--- NOTE | 2020-07-26 14:14 | Pharmacy Report ---
Pharmacy Abx Dose Short Note - Date of Service July 26, 2020 - Assessment & Plan Assessment * Mr Morales is a 74 year old M receiving IV Vancomycin and Cefepime (not a consult) for treatment of UTI, skin contamination of nephrostomy tube * Day #2 of antimicrobial therapy. * Patient with ESRD on HD TuThSa; HD held today. Nephrology consult in place. * He received Vancomycin 2000mg (~17mg/kg) IV x 1 in the ED as a loading dose yesterday. * Random level this mornin.8mcg/mL Plan Vancomycin * Vancomycin random level this morning (13.8mcg/mL) indicates that vanc is due for re-dose. Normally, would re-dose post-HD, however, HD was held today. * Vanc re-dosed this afternoon. Further dosing based on random levels. * Goal trough level for UTI/sepsis : 15 to 20 mcg/mL * Random level ordered for: 07/27 with AM labs Pharmacy will continue to follow and will adjust dose/frequency as necessary. Thank you.
--- NOTE | 2020-07-26 15:35 | Electrocardiogram Report ---
Test Reason : Blood Pressure : / mmHG Vent. Rate : 123 BPM Atrial Rate : 123 BPM P-R Int : 000 ms QRS Dur : 136 ms QT Int : 202 ms P-R-T Axes : 000 -61 090 degrees QTc Int : 289 ms AV dual-paced rhythm Abnormal ECG When compared with ECG of 30-DEC-2019 06:38, No significant change Confirmed by Prateek Liz ([id number]) on 07/26/2020 3:34:54 PM Referred By: Confirmed By:Prateek Liz
--- NOTE | 2020-07-26 19:40 | Ultrasound Report ---
US venous doppler LE RT CLINICAL HISTORY: Right lower extremity PermCath. Right lower extremity edema. Possible DVT COMPARISON STUDY: No previous studies for comparison. FINDINGS: Grayscale, color flow and Doppler spectral waveform analysis was performed. The examination was somewhat limited from a technical standpoint. The patient was unable to tolerate compressions wi thin the common femoral vein and proximal superficial femoral vein. There is also somewhat limited vi sibility due to the dressing for the patient's perm catheter. No thrombus was visualized. There is no rmal augmentation. IMPRESSION: 1. Somewhat limited study from a technical standpoint. No evidence of right lower extremity DVT. ACT 112: Negative or not required by law. Electronically signed by: Bethel Cardoso M.D. 07/26/2020 7:39 PM
--- NOTE | 2020-07-26 22:08 | Hospitalist Progress Note ---
Date of Service July 26, 2020 Assessment & Plan (1) Gram positive septicemia: GPC in chains - strep vs enterococcus. source - suspect the skin from recent catheter placement (multiple lines over last few weeks per pt history) for hemodialysis. cont IV vanco. repeat blood cx's x 2 sets today. echo to r/o SBE. current right femoral HD catheter appears clean, but could easily serve as source for the bacteremia. if there has been enough renal recovery and HD is not needed - remove catheter and culture tip?? await identification of pathogen. hemodynamically stable. (2) UTI (urinary tract infection): catheter-associated. GNR. cont cefepime. await culture. (3) Acute respiratory failure with hypoxia: etiology? underlying, suspected COPD? mild volume overload leading to wheezing? other? cont inhalers. wean NC O2 as tolerated. consider VTE work-up in light of frequent hospitalizations of late. would need V/Q scan. (4) Acute renal failure on dialysis: developed acute kidney injury in 06/2020 while at [facility]. suspected to be combination of pre-renal injury and obstructive. transferred to [facility] for right-sided ureteral stent placement and right- sided nephrostomy tube placement as imaging in June showed hydronephrosis with UVJ obstruction. despite placement of the above tubes it sounds as if his renal function continued to worsen and HD was initiated. date of initiation is uncertain - awaiting records from [facility]. appreciate Dr Perry's consultation. defer on HD today. see above in "septicemia" re: right femoral vein HD catheter. daily BMP. (5) Smoker: juvenile counselor to quit provide nicoderm patch (6) Chronic pancreatitis: prior etoh use?? cont creon TID w/ meals (7) Insulin-requiring or dependent type II diabetes mellitus: cont lantus BID cont novolog CF and carb coverage control excellent thus far (8) Hypertension: cont home meds controlled (9) Hyperlipidemia LDL goal <70: cont statin (10) GERD (gastroesophageal reflux disease): (11) Hypothyroidism (acquired): TSH 12/2019 wnl cont synthroid repeat TSH in am for stability (12) Peripheral neuropathy: 2nd DM?? cont gabapentin per home dosing (13) History of permanent cardiac pacemaker placement: noted in light of septicemia need to be concerned that pacer wires could serve as source as well (14) COPD (chronic obstructive pulmonary disease): suspected long-standing tobacco usage emphysema seen on CT chest cont inhalers cont NC O2 as needed (15) DVT prophylaxis: heparin 5000 BID will need PT, OT request d/c summaries from 2 recent stays at [facility] Admission and Anticipated Discharge Date Admission Date: July 25, 2020 Subjective patient reports that in June he was transferred from [facility] to [facility] for nephrostomy tube placement. he indeed had right-sided nephrostomy tube placement and right-sided ureteral stent placement. sometime during that same admission his renal function worsened and he was initiated on hemodialysis. a right-sided tunneled IJ catheter was placed but it "didn't work." he doesn't remember the details. he was d/c home - with outpatient HD in [place] - and was readmitted to [facility] about 1 week later. he underwent AV fistula creation in the right arm during the 2nd hospital stay. he also had another temporary or permanent HD catheter placement again in the right IJ - again it "didn't work" and it was removed. he ultimately had a right femoral vein HD catheter placement and this has been used for HD since. he left [facility] sometime last week and continued on a Tu/Th/Sat HD schedule in [place]. over the weekend he was having pain in his right arm AV fistula. was taking pain meds last few days for the pain. yesterday noted to have low O2 sats and was encouraged by his to come to ER for evaluation. overnight the pt's blood cx's were 4/4 positive for GPC in chains. urine cx with GNR. during Am rounds today he stated he "felt well." good appetite. no fevers/chills. decent energy. no dyspnea but remains on NC O2. tele stable with pacing. Review of Systems Constitutional: no fever, no chills, no body aches, no fatigue and no anorexia Respiratory: + wheezing; no cough and no dyspnea Cardiovascular: no chest pain Gastrointestinal: no abdominal pain, no nausea and no vomiting Genitourinary: + as per Subjective / HPI (nephrostomy tube in place - right kidney - cloudy urine -) Integumentary: no rash Physical Exam Constitutional: no acute distress and no altered mental status ENMT: external ear and nose normal, oropharynx normal Respiratory: no respiratory distress Auscultation: + diminished lung sounds and + wheezes (end-exp) Cardiovascular: Rate/Rhythm: regular rate and regular rhythm Heart Sounds: normal S1, normal S2 and + murmur (1/6 LSB systolic) Vessels: posterior tibial pulses present and dorsalis pedis pulses present; no JVD Extremities: + edema (right leg; <1 +; none on left ), + vascular access device (right femoral vein -- insertion site clean, no erythema, no drainage) and + AV fistula (right arm ) Gastrointestinal (Abdomen): normal bowel sounds, soft, nontender, no hepatosplenomegaly nephrostomy tube right flank Skin: scab present right upper chest - presumably from prior catheter; no drainage; no erythema Psychiatric: A+Ox3, euthymic affect Results & Data Results & Data ([facility]) Vital Signs (Past 12 Hours) Vital Signs Temp Pulse Pulse Resp BP Pulse Ox 07/26/20 19:56 36.7 C 62 18 146/69 H 92 07/26/20 16:30 60 07/26/20 15:02 37.1 C 60 18 132/70 95 07/26/20 11:31 36.9 C 60 18 149/67 H 94 Laboratory Results Laboratory Results - last 24 hr 07/25/20 07/26/20 07/26/20 19:55 06:54 06:54 WBC 9.66 RBC 3.66 L Hgb 10.7 L Hct 35.8 L MCV 97.8 MCH 29.2 MCHC 29.9 L RDW Std Deviation 59.5 H RDW Coeff of Hilda 16.8 H Plt Count 348 MPV 9.3 Immature Gran % (Auto) 1.4 Neut % (Auto) 71.8 Lymph % (Auto) 15.5 Davie % (Auto) 7.8 Eos % (Auto) 3.2 Baso % (Auto) 0.3 Neut # (Auto) 6.93 H Lymph # (Auto) 1.50 Davie # (Auto) 0.75 H Eos # (Auto) 0.31 Baso # (Auto) 0.03 Immature Gran # (Auto) 0.14 H Absolute Nucleated RBC 0.03 H Nucleated RBC % (auto) 0.3 Sodium Potassium Chloride Carbon Dioxide Anion Gap BUN Creatinine Est Cr Clr Drug Dosing Est GFR ( Amer) Est GFR (Non-Af Amer) BUN/Creatinine Ratio Glucose POC Glucose Calcium Procalcitonin Nasal Screen MRSA (PCR) Negative Random Vancomycin 13.8 07/26/20 07/26/20 07/26/20 06:54 06:54 07:21 WBC RBC Hgb Hct MCV MCH MCHC RDW Std Deviation RDW Coeff of Hilda Plt Count MPV Immature Gran % (Auto) Neut % (Auto) Lymph % (Auto) Davie % (Auto) Eos % (Auto) Baso % (Auto) Neut # (Auto) Lymph # (Auto) Davie # (Auto) Eos # (Auto) Baso # (Auto) Immature Gran # (Auto) Absolute Nucleated RBC Nucleated RBC % (auto) Sodium 140 Potassium 4.2 Chloride 102 Carbon Dioxide 30 Anion Gap 8.0 BUN 27 H Creatinine 3.13 H Est Cr Clr Drug Dosing 26.5 Est GFR ( Amer) 21.8 Est GFR (Non-Af Amer) 18.8 BUN/Creatinine Ratio 8.6 L Glucose 106 H POC Glucose 93 Calcium 8.4 L Procalcitonin 0.91 H Nasal Screen MRSA (PCR) Random Vancomycin 07/26/20 07/26/20 07/26/20 11:39 16:48 20:20 WBC RBC Hgb Hct MCV MCH MCHC RDW Std Deviation RDW Coeff of Hilda Plt Count MPV Immature Gran % (Auto) Neut % (Auto) Lymph % (Auto) Davie % (Auto) Eos % (Auto) Baso % (Auto) Neut # (Auto) Lymph # (Auto) Davie # (Auto) Eos # (Auto) Baso # (Auto) Immature Gran # (Auto) Absolute Nucleated RBC Nucleated RBC % (auto) Sodium Potassium Chloride Carbon Dioxide Anion Gap BUN Creatinine Est Cr Clr Drug Dosing Est GFR ( Amer) Est GFR (Non-Af Amer) BUN/Creatinine Ratio Glucose POC Glucose 117 H 102 H 93 Calcium Procalcitonin Nasal Screen MRSA (PCR) Random Vancomycin Diagnostic Findings blood cx's from 07/25: 4/4 bottles + for GPC in chains urine cx from 07/25: >100,000 CFU of GNR PG Care Time/CCT Total # of Minutes Spent Total Time Spent with Patient: Total time spent is greater than 50% in coordination of care (as documented) at patient's floor/unit and/or counseling patient: Coding Level of Care Code 23124 Subseq Hosp Care Lvl 3 Diagnoses Gram positive septicemia A41.89 UTI (urinary tract infection) T83.512D; N39.0 Urinary tract infection type: catheter-associated UTI Indwelling urinary catheter type: nephrostomy catheter Encounter type: subsequent encounter Acute respiratory failure with hypoxia J96.01 Acute renal failure on dialysis N17.9; Z99.2 Smoker F17.200 Chronic pancreatitis K86.1 Pancreatitis type: unspecified pancreatitis type Insulin-requiring or dependent type II diabetes mellitus E11.9; Z79.4 Hypertension I10 Hypertension type: essential hypertension Hyperlipidemia LDL goal <70 E78.5 GERD (gastroesophageal reflux disease) K21.9 Esophagitis presence: esophagitis presence not specified Hypothyroidism (acquired) E03.9 Peripheral neuropathy G62.9 Peripheral neuropathy type: polyneuropathy, unspecified History of permanent cardiac pacemaker placement Z95.0 COPD (chronic obstructive pulmonary disease) J44.9 COPD type: unspecified COPD DVT prophylaxis Z29.9 (1) UTI (urinary tract infection) Urinary tract infection type: catheter-associated UTI Indwelling urinary catheter type: nephrostomy catheter Encounter type: subsequent encounter Qualified Code(s): T83.512D - Infection and inflammatory reaction due to nephrostomy catheter, subsequent encounter; N39.0 - Urinary tract infection, site not specified (2) Chronic pancreatitis Pancreatitis type: unspecified pancreatitis type Qualified Code(s): K86.1 - Other chronic pancreatitis (3) Hypertension Hypertension type: essential hypertension Qualified Code(s): I10 - Essential (primary) hypertension (4) GERD (gastroesophageal reflux disease) Esophagitis presence: esophagitis presence not specified Qualified Code(s): K21.9 - Gastro-esophageal reflux disease without esophagitis (5) Peripheral neuropathy Peripheral neuropathy type: polyneuropathy, unspecified Qualified Code(s): G62.9 - Polyneuropathy, unspecified (6) COPD (chronic obstructive pulmonary disease) COPD type: unspecified COPD Qualified Code(s): J44.9 - Chronic obstructive pulmonary disease, unspecified
[2020-07-26] MEDS: FLUTICASONE/VILANTEROL 100/25MCG 14 PUFFS/INHALER INH SCH (23:34)
[2020-07-27 06:04] LABS: Hemoglobin 9.6 g/dL (14.0-18.0); Mean Corpuscular Hemoglobin 29.9 pg (25-34); Mean Corpuscular Volume 96.6 fL (80-100); Mean Platelet Volume 9.1 fL (7.4-10.4); Platelet Count 336 K/uL (130-400); RDW Coefficient of Variation 16.7 % (11.5-14.5); RDW Standard Deviation 58.7 fL (36.4-46.3); Red Blood Count 3.21 M/uL (4.7-6.1); White Blood Count 7.73 K/uL (4.8-10.8)
[2020-07-27] MEDS: LEVOTHYROXINE SODIUM 88 MCG TABLET PO SCH (06:11)
[2020-07-27 06:33] LABS: Albumin Level 1.9 gm/dl (3.4-5.0); BUN Creatinine Ratio 10.3 (10-20); Calcium 8.3 mg/dl (8.5-10.1); Creatinine Clr Calc Pharmacy 24.7 ml/min; Est GFR (Non-African American) 17.2; Phosphorus 3.7 mg/dl (2.5-4.9); Potassium 4.2 mmol/L (3.5-5.1)
[2020-07-27 06:43] LABS: Thyroid Stimulating Hormone 5.45 uIu/ml (0.300-4.500)
[2020-07-27] MEDS: ASPIRIN 81 MG ECTAB PO SCH (08:01)
[2020-07-27] MEDS: PANCREAZE (LIPASE 10,500U) CAP PO SCH ×3 (08:01→17:11)
[2020-07-27] MEDS: hydrALAZINE 10 MG TAB PO SCH ×2 (08:01→21:39)
[2020-07-27] MEDS: CEROVITE ADV FORMULA TAB PO SCH (08:01)
[2020-07-27] MEDS: MAGNESIUM OXIDE 400 MG TAB PO SCH (08:01)
[2020-07-27] MEDS: METOPROLOL TARTRATE 25 MG TAB PO SCH ×2 (08:02→21:39)
[2020-07-27] MEDS: amLODIPine BESYLATE 5 MG TAB PO SCH (08:02)
[2020-07-27] MEDS: GABAPENTIN 300 MG CAP PO SCH ×2 (08:02→21:33)
[2020-07-27] MEDS: ATORVASTATIN 40 MG TAB PO SCH (08:02)
[2020-07-27] MEDS: NICOTINE 14 MG/24 HR PATCH TD SCH ×2 (08:02→08:10)
[2020-07-27] MEDS: INSULIN GLARGINE SOLOSTAR 100 UNITS/ML 3 ML PEN SC SCH ×2 (08:07→21:32)
[2020-07-27] MEDS: INSULIN ASPART 100 UNITS/ML 3 ML PEN SC SCH ×4 (08:08→21:31)
[2020-07-27] MEDS: HEPARIN SOD 5,000 UNIT/0.5 ML VIAL SQ SCH ×2 (08:08→21:33)
[2020-07-27] MEDS ORDERED: FUROSEMIDE 40 MG TAB PO ONE (08:56)
--- NOTE | 2020-07-27 09:04 | Nephrology Progress Note ---
Date of Service July 27, 2020 Assessment & Plan (1) Acute renal failure on dialysis: * JIMMY attributed to ATN, started HD 3-4 weeks ago * 24 hour urine in progress * Creatinine 3.1 --> 3.3 overnight * Electrolytes acceptable * Volume status generally euvolemic * Adequate urine output, balanced I/O's * Will provide furosemide 40 mg PO to encourage slightly negative fluid balance * Hold HD today for additional monitoring * Femoral catheter dressing change performed yesterday * AVG with adequate thrill and bruit (placed 07/21) likely still premature for use: will reach out to Dr. Bonilla * Small area of possible fluctuation at superior end of incision -- low suspicion that graft is infected but US has been requested to evaluate for abscess or fluid collections * Document I/O's * Repeat metabolic profile tomorrow AM * Vanco level 19, consider modified dose this afternoon per pharm consult (no HD today; will re-eval tomorrow AM) * Medications appropriately dosed for kidney function (2) Chronic kidney disease, stage III (moderate): * Baseline creatinine 2.0 mg/dL prior to starting HD for JIMMY (3) Gram positive septicemia: * Remains on vanco, follow up cultures and sensitivities pending * TTE reviewed, no vegetation (4) Bacteremia: (5) Pyelonephritis: * Clinically improving * Remains on cefepime Admission and Anticipated Discharge Date Admission Date: July 25, 2020 Subjective No acute events overnight. No fevers or chills. Breathing comfortably. Remains on 2-3L O2 NC. Appetite is good. Some pain in RUE AVG with tenderness and superior pole of incision. Minimal erythema or incision and no drainage. Femoral catheter dressing changed yesterday. No pain at catheter site. Minimal mild and unchanged discomfort around PCN exit site. Review of Systems Review of Systems: All systems reviewed & are unremarkable except as noted in HPI & below Physical Exam Constitutional: well developed; no acute distress Eyes: + anicteric sclerae; no corneal abnormality ENMT: Mouth: no oral mucosal abnormality and oral mucous membranes not dry Neck: normal visual inspection and trachea midline Respiratory: normal respiratory effort Auscultation: + rales (few rales at right base) Cardiovascular: Rate/Rhythm: regular rate Heart Sounds: normal S1 and normal S2; no murmur Vessels: no JVD Extremities: + AV fistula (AVG RUE); no edema Femoral HD permcath Musculoskeletal: Extremities: no cyanosis and no clubbing Skin: normal turgor; no lesions Neurologic: Motor/Sensory: no tremor and no asterixis Psychiatric: Orientation: alert and oriented x 3 Results & Data ([facility]) Vital Signs (Past 12 Hours) Vital Signs Temp Pulse Pulse Resp BP Pulse Ox 07/27/20 07:34 36.9 C 60 18 144/71 H 93 07/27/20 07:28 62 07/27/20 03:53 37.0 C 64 19 141/52 H 93 07/27/20 00:33 60 07/26/20 23:52 66 07/26/20 23:00 36.8 C 61 18 146/73 H 90 Laboratory Results Laboratory Results - last 24 hr 07/26/20 07/26/20 07/26/20 11:39 16:48 20:20 WBC RBC Hgb Hct MCV MCH MCHC RDW Std Deviation RDW Coeff of Hilda Plt Count MPV Sodium Potassium Chloride Carbon Dioxide Anion Gap BUN Creatinine Est Cr Clr Drug Dosing Est GFR ( Amer) Est GFR (Non-Af Amer) BUN/Creatinine Ratio Glucose POC Glucose 117 H 102 H 93 Calcium Phosphorus Albumin TSH Random Vancomycin 07/27/20 07/27/20 07/27/20 05:43 05:43 05:43 WBC 7.73 RBC 3.21 L Hgb 9.6 L Hct 31.0 L MCV 96.6 MCH 29.9 MCHC 31.0 L RDW Std Deviation 58.7 H RDW Coeff of Hilda 16.7 H Plt Count 336 MPV 9.1 Sodium 140 Potassium 4.2 Chloride 104 Carbon Dioxide 28 Anion Gap 7.0 BUN 35 H Creatinine 3.37 H Est Cr Clr Drug Dosing 24.7 Est GFR ( Amer) 20.0 Est GFR (Non-Af Amer) 17.2 BUN/Creatinine Ratio 10.3 Glucose 109 H POC Glucose Calcium 8.3 L Phosphorus 3.7 Albumin 1.9 L TSH 5.450 H Random Vancomycin 19.0 07/27/20 07:34 WBC RBC Hgb Hct MCV MCH MCHC RDW Std Deviation RDW Coeff of Hilda Plt Count MPV Sodium Potassium Chloride Carbon Dioxide Anion Gap BUN Creatinine Est Cr Clr Drug Dosing Est GFR ( Amer) Est GFR (Non-Af Amer) BUN/Creatinine Ratio Glucose POC Glucose 111 H Calcium Phosphorus Albumin TSH Random Vancomycin PG Care Time/CCT Total # of Minutes Spent Total Time Spent with Patient: Total time spent is greater than 50% in coordination of care (as documented) at patient's floor/unit and/or counseling patient: Coding Level of Care Code 57419 Subseq Hosp Care Lvl 3 Diagnoses Acute renal failure on dialysis N17.9; Z99.2 Chronic kidney disease, stage III (moderate) N18.3 Gram positive septicemia A41.89 Bacteremia R78.81 Pyelonephritis N12
--- NOTE | 2020-07-27 11:02 | Ultrasound Report ---
US hemodialysis access CLINICAL HISTORY: AVG/bacteremia r/o abscess. Recent AV fistula. COMPARISON STUDY: No previous studies for comparison. TECHNIQUE: Grayscale, duplex Doppler sonography of the right upper extremity AV fistula was performed FINDINGS: The right upper extremity AV fistula is patent. Note is made of 3 subcentimeter hypoechoic foci adjacent to the AV fistula. These measure up to 6 mm. These favor tiny resolving hematomas. Ther e is no complex fluid collection to suggest an abscess. IMPRESSION: 1. Patent right upper extremity AV fistula. 2. Three hypoechoic foci that measure up to 6 mm, adjacent to the AV fistula. These favor postsurgica l change with tiny resolving hematomas. No fluid collection to suggest an abscess. ACT 112: Negative or not required by law. Electronically signed by: Christian Brito M.D. 07/27/2020 11:00 AM
[2020-07-27] MEDS: CEFEPIME 2,000 MG in SYRINGE 0 ML IV SCH (13:03)
--- NOTE | 2020-07-27 14:23 | Nuclear Medicine Report ---
NM pul perfusion HISTORY: 74 years-old Male hypoxia, eval prob of PE . Acute hypoxia COMPARISON: Duplex venous Doppler study 07/26/2020, chest CT and chest radiograph 07/25/2020 TECHNIQUE: Nuclear medicine perfusion study was obtained following the intravenous administration of 5.189 mCi technetium 99 MAA administered via the left upper extremity. FINDINGS: Chest radiograph obtained on 07/25/2020 demonstrated cardiomegaly, left subclavian pacer, right hemidi aphragmatic elevation, trace pleural effusions with bibasilar atelectasis. No large segmental perfusion defects. Ventilation images were not obtained secondary to ongoing insti tutional droplet precautions. IMPRESSION: Low probability for pulmonary embolus. ACT 112: Negative or not required by law. The above report was generated using voice recognition software. It may contain grammatical, syntax o r spelling errors. Electronically signed by: Michael Truong M.D. 07/27/2020 2:21 PM
--- NOTE | 2020-07-27 14:37 | Pharmacy Report ---
Pharmacy Abx Dose Short Note - Date of Service July 27, 2020 - Assessment & Plan Assessment 74 year old M receiving vancomycin/cefepime for treatment of pyelo/bactermia Day # 3 of antimicrobial therapy. Blood cultures growing strep sp. awaiting identification, urine culture growing strep sp. + gram negative bacilli. patient currently on cefepime + vanco. Vancomycin being dosed by levels. No HD today, Likely tomorrow. Plan Vancomycin * Random level of 19 is therapeutic, patient is making urine, will give supplemental 750 mg dose this evening * Continue to dose by levels, ordered for 07/28 AM in anticipation of HD Cefepime currently dosed at 2 gm q24H- will adjust to HD dosing tomorrow Pharmacy will continue to follow and will adjust dose/frequency as necessary. Thank you.
[2020-07-27 14:52] LABS: Urine Creatinine 61.1 mg/dl
[2020-07-27] MEDS ORDERED: VANCOMYCIN HCL 750 MG in SODIUM CHLORIDE 0.9% 250 ML IV ONE (15:00)
[2020-07-27] MEDS ORDERED: VANCOMYCIN HCL 750 MG in SODIUM CHLORIDE 0.9% 500 ML IV ONE (15:00)
[2020-07-27 15:16] LABS: Patient Weight 110.3 kg
[2020-07-27 16:57] LABS: Albumin Level 1.8 gm/dl (3.4-5.0); BUN Creatinine Ratio 10.7 (10-20); Calcium 8.3 mg/dl (8.5-10.1); Creatinine Clr Calc Pharmacy 23.7 ml/min; Est GFR (African American) 18.9; Est GFR (Non-African American) 16.3; Potassium 4.4 mmol/L (3.5-5.1)
[2020-07-27 17:00] LABS: Albumin Globulin Ratio 0.4 (0.9-2); Bilirubin,Total 0.3 mg/dl (0.2-1); Globulin 4.4 gm/dl (2.5-4.0); Phosphorus 3.6 mg/dl (2.5-4.9); Total Protein 6.2 gm/dl (6.4-8.2)
--- NOTE | 2020-07-27 21:19 | Hospitalist Progress Note ---
Date of Service July 27, 2020 Assessment & Plan (1) Gram positive septicemia: strep species on 07/25 blood cultures as well as 07/26 cultures. obtained 2 additional sets today. echo without SBE findings. source - recent catheter placement (multiple lines over last few weeks per pt history) for hemodialysis vs right femoral HD catheter vs urine. can't rule out pacer wire infection but less likely. Urine now growing strep species as well. cont IV vanco. current right femoral HD catheter appears clean. AV graft, RUE - ultrasound reviewed - no evidence of abscess. Dr Perry reports skin surrounding the graft is intact and free of cellulitis. await identification of pathogen. hemodynamically stable. (2) UTI (urinary tract infection): catheter-associated. GNR along with strep species. cont vanco. cont cefepime. await final culture result. (3) Acute respiratory failure with hypoxia: etiology? underlying, suspected COPD? mild volume overload leading to wheezing? combination of the two? VQ scan today with low probability for PE. cont inhalers. wean NC O2 as tolerated. (4) Acute renal failure on dialysis: developed acute kidney injury in 06/2020 while at [facility]. suspected to be combination of pre-renal injury and obstructive. transferred to [facility] for right-sided ureteral stent placement and right- sided nephrostomy tube placement as imaging in June showed hydronephrosis with UVJ obstruction. despite placement of the above tubes it sounds as if his renal function continued to worsen and HD was initiated. date of initiation uncertain - awaiting records from [facility]. appreciate Dr Perry's consultation. defer on HD again today per Dr Perry's recommendation. daily BMP. u/s of RUE AV graft noted. (5) Smoker: cruise counselor to quit provide nicoderm patch (6) Chronic pancreatitis: prior etoh use?? cont creon TID w/ meals (7) Insulin-requiring or dependent type II diabetes mellitus: cont lantus BID cont novolog CF and carb coverage sugars starting to rise - adjust insulins (8) Hypertension: cont home meds controlled (9) Hyperlipidemia LDL goal <70: cont statin (10) GERD (gastroesophageal reflux disease): (11) Hypothyroidism (acquired): repeat TSH mildly elevated increase synthroid to 100mcg daily repeat TSH in 6 weeks as outpatient (12) Peripheral neuropathy: 2nd DM?? cont gabapentin per home dosing (13) History of permanent cardiac pacemaker placement: noted in light of septicemia need to be concerned that pacer wires could serve as source as well (14) COPD (chronic obstructive pulmonary disease): suspected long-standing tobacco usage emphysema seen on CT chest cont inhalers cont NC O2 as needed VQ scan with low prob for PE (15) DVT prophylaxis: heparin 5000 BID cont PT, OT request d/c summaries from 2 recent stays at [facility] Admission and Anticipated Discharge Date Admission Date: July 25, 2020 Subjective patient reports "feeling great" eating well no dyspnea at rest but still requiring 2 L NC O2 no cough denies flank or abdominal pain no fevers or chills just worn out from all the testing today Review of Systems Constitutional: + fatigue; no fever, no chills and no anorexia Respiratory: no cough and no dyspnea Cardiovascular: no chest pain Gastrointestinal: no abdominal pain, no nausea and no vomiting Genitourinary: no hematuria Physical Exam Constitutional: no acute distress and no altered mental status ENMT: external ear and nose normal, oropharynx normal Respiratory: no respiratory distress Auscultation: + diminished lung sounds and + wheezes (end-exp) Cardiovascular: Rate/Rhythm: regular rate and regular rhythm Heart Sounds: normal S1, normal S2 and + murmur (1/6 LSB systolic) Vessels: posterior tibial pulses present and dorsalis pedis pulses present; no JVD Extremities: + edema (trace RLE; none on left), + vascular access device (right femoral vein -- insertion site clean, no erythema, no drainage) and + AV fistula (right arm - covered with sleeve) Gastrointestinal (Abdomen): normal bowel sounds, soft, nontender, no hepatosplenomegaly nephrostomy tube in place on right - urine more clear today in bag Skin: HD catheter right groin clean; scar/scab upper right chest from prior HD catheter - clean Psychiatric: A+Ox3, euthymic affect Results & Data Results & Data ([facility]) Vital Signs (Past 12 Hours) Vital Signs Temp Pulse Pulse Resp BP Pulse Ox 07/27/20 19:43 37.2 C 60 18 156/74 H 94 07/27/20 15:25 36.9 C 72 16 147/73 H 93 07/27/20 15:00 60 07/27/20 11:30 36.6 C 59 L 22 157/78 H 94 Laboratory Results Laboratory Results - last 24 hr 07/27/20 07/27/20 07/27/20 05:43 05:43 05:43 WBC 7.73 RBC 3.21 L Hgb 9.6 L Hct 31.0 L MCV 96.6 MCH 29.9 MCHC 31.0 L RDW Std Deviation 58.7 H RDW Coeff of Hilda 16.7 H Plt Count 336 MPV 9.1 ESR Sodium 140 Potassium 4.2 Chloride 104 Carbon Dioxide 28 Anion Gap 7.0 BUN 35 H Creatinine 3.37 H Est Cr Clr Drug Dosing 24.7 Est GFR ( Amer) 20.0 Est GFR (Non-Af Amer) 17.2 BUN/Creatinine Ratio 10.3 Glucose 109 H POC Glucose Calcium 8.3 L Phosphorus 3.7 Total Bilirubin AST ALT Alkaline Phosphatase C-Reactive Protein Total Protein Albumin 1.9 L Globulin Albumin/Globulin Ratio TSH 5.450 H Urine Collection Time Urine Total Volume Urine Creatinine Ur Creatinine 24 Hour Creatinine Clearance Random Vancomycin 19.0 07/27/20 07/27/20 07/27/20 07:34 11:24 11:24 WBC RBC Hgb Hct MCV MCH MCHC RDW Std Deviation RDW Coeff of Hilda Plt Count MPV ESR Sodium Potassium Chloride Carbon Dioxide Anion Gap BUN Creatinine 3.26 H Est Cr Clr Drug Dosing Est GFR ( Amer) Est GFR (Non-Af Amer) BUN/Creatinine Ratio Glucose POC Glucose 111 H Calcium Phosphorus Total Bilirubin AST ALT Alkaline Phosphatase C-Reactive Protein Total Protein Albumin Globulin Albumin/Globulin Ratio TSH Urine Collection Time 24 Urine Total Volume 1610 Urine Creatinine 61.1 Ur Creatinine 24 Hour 1.0 Creatinine Clearance 16.0 L Random Vancomycin 07/27/20 07/27/20 07/27/20 11:24 11:24 11:50 WBC RBC Hgb Hct MCV MCH MCHC RDW Std Deviation RDW Coeff of Hilda Plt Count MPV ESR 39 H Sodium Potassium Chloride Carbon Dioxide Anion Gap BUN Creatinine Est Cr Clr Drug Dosing Est GFR ( Amer) Est GFR (Non-Af Amer) BUN/Creatinine Ratio Glucose POC Glucose 109 H Calcium Phosphorus Total Bilirubin AST ALT Alkaline Phosphatase C-Reactive Protein 13.30 H Total Protein Albumin Globulin Albumin/Globulin Ratio TSH Urine Collection Time Urine Total Volume Urine Creatinine Ur Creatinine 24 Hour Creatinine Clearance Random Vancomycin 07/27/20 07/27/2020 16:35 16:38 21:09 WBC RBC Hgb Hct MCV MCH MCHC RDW Std Deviation RDW Coeff of Hilda Plt Count MPV ESR Sodium 138 Potassium 4.4 Chloride 103 Carbon Dioxide 26 Anion Gap 9.0 BUN 38 H Creatinine 3.52 H Est Cr Clr Drug Dosing 23.7 Est GFR ( Amer) 18.9 Est GFR (Non-Af Amer) 16.3 BUN/Creatinine Ratio 10.7 Glucose 207 H POC Glucose 219 H 258 H Calcium 8.3 L Phosphorus 3.6 Total Bilirubin 0.3 AST 64 H ALT 24 Alkaline Phosphatase 124 H C-Reactive Protein Total Protein 6.2 L Albumin 1.8 L Globulin 4.4 H Albumin/Globulin Ratio 0.4 L TSH Urine Collection Time Urine Total Volume Urine Creatinine Ur Creatinine 24 Hour Creatinine Clearance Random Vancomycin blood cx's from 07/26 also with strep species urine cx now with GNR AND strep species PG Care Time/CCT Total # of Minutes Spent Total Time Spent with Patient: Total time spent is greater than 50% in coordination of care (as documented) at patient's floor/unit and/or counseling patient: Coding Level of Care Code 40308 Subseq Hosp Care Lvl 3 Diagnoses Gram positive septicemia A41.89 UTI (urinary tract infection) T83.512D; N39.0 Encounter type: subsequent encounter Indwelling urinary catheter type: nephrostomy catheter Urinary tract infection type: catheter-associated UTI Acute respiratory failure with hypoxia J96.01 Acute renal failure on dialysis N17.9; Z99.2 Smoker F17.200 Chronic pancreatitis K86.1 Pancreatitis type: unspecified pancreatitis type Insulin-requiring or dependent type II diabetes mellitus E11.9; Z79.4 Hypertension I10 Hypertension type: essential hypertension Hyperlipidemia LDL goal <70 E78.5 GERD (gastroesophageal reflux disease) K21.9 Esophagitis presence: esophagitis presence not specified Hypothyroidism (acquired) E03.9 Peripheral neuropathy G62.9 Peripheral neuropathy type: polyneuropathy, unspecified History of permanent cardiac pacemaker placement Z95.0 COPD (chronic obstructive pulmonary disease) J44.9 COPD type: unspecified COPD DVT prophylaxis Z29.9 (1) UTI (urinary tract infection) Encounter type: subsequent encounter Indwelling urinary catheter type: nephrostomy catheter Urinary tract infection type: catheter-associated UTI Qualified Code(s): T83.512D - Infection and inflammatory reaction due to nephrostomy catheter, subsequent encounter; N39.0 - Urinary tract infection, site not specified (2) Peripheral neuropathy Peripheral neuropathy type: polyneuropathy, unspecified Qualified Code(s): G62.9 - Polyneuropathy, unspecified (3) Chronic pancreatitis Pancreatitis type: unspecified pancreatitis type Qualified Code(s): K86.1 - Other chronic pancreatitis (4) COPD (chronic obstructive pulmonary disease) COPD type: unspecified COPD Qualified Code(s): J44.9 - Chronic obstructive pulmonary disease, unspecified (5) GERD (gastroesophageal reflux disease) Esophagitis presence: esophagitis presence not specified Qualified Code(s): K21.9 - Gastro-esophageal reflux disease without esophagitis (6) Hypertension Hypertension type: essential hypertension Qualified Code(s): I10 - Essential (primary) hypertension
[2020-07-27] MEDS: FLUTICASONE/VILANTEROL 100/25MCG 14 PUFFS/INHALER INH SCH (21:33)
[2020-07-28] MEDS: LEVOTHYROXINE SODIUM 100 MCG TABLET PO SCH (05:57)
[2020-07-28 07:07] LABS: Hematocrit (blood only) 33.3 % (42-52); Mean Corpuscular Hemoglobin 29.1 pg (25-34); Mean Corpuscular Volume 96.8 fL (80-100); Mean Platelet Volume 9.5 fL (7.4-10.4); Platelet Count 413 K/uL (130-400); RDW Coefficient of Variation 16.6 % (11.5-14.5); RDW Standard Deviation 58.8 fL (36.4-46.3); Red Blood Count 3.44 M/uL (4.7-6.1); White Blood Count 8.63 K/uL (4.8-10.8)
[2020-07-28 07:50] LABS: BUN Creatinine Ratio 12.1 (10-20); Calcium 8.1 mg/dl (8.5-10.1); Creatinine Clr Calc Pharmacy 23.9 ml/min; Est GFR (African American) 19.5; Est GFR (Non-African American) 16.8; Potassium 4.1 mmol/L (3.5-5.1)
[2020-07-28] MEDS: NICOTINE 14 MG/24 HR PATCH TD SCH (08:25)
[2020-07-28] MEDS: HEPARIN SOD 5,000 UNIT/0.5 ML VIAL SQ SCH ×3 (08:25→21:29)
[2020-07-28] MEDS: INSULIN ASPART 100 UNITS/ML 3 ML PEN SC SCH ×4 (08:26→21:23)
[2020-07-28] MEDS: INSULIN GLARGINE SOLOSTAR 100 UNITS/ML 3 ML PEN SC SCH ×3 (08:26→21:22)
[2020-07-28] MEDS: MAGNESIUM OXIDE 400 MG TAB PO SCH (08:27)
[2020-07-28] MEDS: METOPROLOL TARTRATE 25 MG TAB PO SCH ×2 (08:27→21:22)
[2020-07-28] MEDS: ATORVASTATIN 40 MG TAB PO SCH (08:27)
[2020-07-28] MEDS: amLODIPine BESYLATE 5 MG TAB PO SCH (08:27)
[2020-07-28] MEDS: GABAPENTIN 300 MG CAP PO SCH (08:27)
[2020-07-28] MEDS: CEROVITE ADV FORMULA TAB PO SCH (08:27)
[2020-07-28] MEDS: PANCREAZE (LIPASE 10,500U) CAP PO SCH ×3 (08:28→17:24)
[2020-07-28] MEDS: hydrALAZINE 10 MG TAB PO SCH ×2 (08:28→21:21)
[2020-07-28] MEDS: ASPIRIN 81 MG ECTAB PO SCH (08:28)
--- NOTE | 2020-07-28 09:44 | Nephrology Progress Note ---
Date of Service July 28, 2020 Assessment & Plan (1) Acute renal failure on dialysis: * JIMMY attributed to ATN; requiring SUSTAINABILITY CONSULTANT but now with evidence of renal recovery * Creatinine clearance 16 ml/min * Creatinine remains stable at 3.4 mg/dL (eGFR 16 c/w 24 hr) * Electrolytes acceptable * Volume status euvolemic * Adequate urine output * Furosemide 40 mg PO yesterday to encourage urine output * Hold HD today for additional monitoring * Femoral catheter remains intact but if kidney function stable, will ask vascular to remove tomorrow * AVG with adequate thrill and bruit (placed 07/21). Ideally Dr. Bonilla would like to give 14 days prior to use. * US did not demonstrate any concerning fluid collections or abscess involving the graft * Document I/O's * Repeat metabolic profile tomorrow AM * Vanco level , I discussed with pharmacist regarding dosing (no HD today; will re-eval tomorrow AM) * Medications appropriately dosed for kidney function, will try dose adjusting gabapentin to 300 mg daily for fatigue (2) Chronic kidney disease, stage III (moderate): * Baseline creatinine 2.0 mg/dL prior to starting HD for JIMMY (3) Gram positive septicemia: * Remains on vanco, Blood cultures 07/25 and 07/26 + strep * TTE reviewed, no vegetation (4) Bacteremia: Monitor daily vanco level and redose as needed. No anticipated HD today. (5) Pyelonephritis: * Clinically improving * Remains on cefepime Admission and Anticipated Discharge Date Admission Date: July 25, 2020 Subjective No acute events overnight. Palomo feels well this morning. He was seen and evaluated with his at the bedside. Some difficulty sleeping reported and feeling tired today. Otherwise, feels well. No fevers or chills. Breathing comfortably. Appetite is good. Denies pain. Review of Systems Review of Systems: All systems reviewed & are unremarkable except as noted in HPI & below Physical Exam Constitutional: well developed; no acute distress Eyes: + anicteric sclerae; no corneal abnormality ENMT: Mouth: no oral mucosal abnormality and oral mucous membranes not dry Neck: normal visual inspection and trachea midline Respiratory: normal respiratory effort Auscultation: lungs clear to auscultation bilaterally Cardiovascular: Rate/Rhythm: regular rate Heart Sounds: normal S1 and normal S2; no murmur Vessels: no JVD Extremities: + AV fistula (AVG RUE); no edema Musculoskeletal: Extremities: no cyanosis and no clubbing Skin: normal turgor; no lesions Neurologic: Motor/Sensory: no tremor and no asterixis Psychiatric: Orientation: alert and oriented x 3 Results & Data ([facility]) Vital Signs (Past 12 Hours) Vital Signs Temp Pulse Pulse Resp BP Pulse Ox 07/28/20 07:00 36.8 C 60 20 125/68 96 07/28/20 03:00 37.8 C H 60 20 160/72 H 92 07/28/20 00:00 60 07/27/20 23:32 37.1 C 59 L 20 156/80 H 92 07/27/20 21:39 61 164/93 H Laboratory Results Laboratory Results - last 24 hr 07/27/20 07/27/20 07/27/20 11:24 11:24 11:24 WBC RBC Hgb Hct MCV MCH MCHC RDW Std Deviation RDW Coeff of Hilda Plt Count MPV ESR 39 H Sodium Potassium Chloride Carbon Dioxide Anion Gap BUN Creatinine 3.26 H Est Cr Clr Drug Dosing Est GFR ( Amer) Est GFR (Non-Af Amer) BUN/Creatinine Ratio Glucose POC Glucose Calcium Phosphorus Total Bilirubin AST ALT Alkaline Phosphatase C-Reactive Protein Total Protein Albumin Globulin Albumin/Globulin Ratio Urine Collection Time 24 Urine Total Volume 1610 Urine Creatinine 61.1 Ur Creatinine 24 Hour 1.0 Creatinine Clearance 16.0 L Random Vancomycin 07/27/20 07/27/20 07/27/20 11:24 11:50 16:35 WBC RBC Hgb Hct MCV MCH MCHC RDW Std Deviation RDW Coeff of Hilda Plt Count MPV ESR Sodium 138 Potassium 4.4 Chloride 103 Carbon Dioxide 26 Anion Gap 9.0 BUN 38 H Creatinine 3.52 H Est Cr Clr Drug Dosing 23.7 Est GFR ( Amer) 18.9 Est GFR (Non-Af Amer) 16.3 BUN/Creatinine Ratio 10.7 Glucose 207 H POC Glucose 109 H Calcium 8.3 L Phosphorus 3.6 Total Bilirubin 0.3 AST 64 H ALT 24 Alkaline Phosphatase 124 H C-Reactive Protein 13.30 H Total Protein 6.2 L Albumin 1.8 L Globulin 4.4 H Albumin/Globulin Ratio 0.4 L Urine Collection Time Urine Total Volume Urine Creatinine Ur Creatinine 24 Hour Creatinine Clearance Random Vancomycin 07/27/20 07/27/2020 16:38 21:09 06:36 WBC 8.63 RBC 3.44 L Hgb 10.0 L Hct 33.3 L MCV 96.8 MCH 29.1 MCHC 30.0 L RDW Std Deviation 58.8 H RDW Coeff of Hilda 16.6 H Plt Count 413 H MPV 9.5 ESR Sodium Potassium Chloride Carbon Dioxide Anion Gap BUN Creatinine Est Cr Clr Drug Dosing Est GFR ( Amer) Est GFR (Non-Af Amer) BUN/Creatinine Ratio Glucose POC Glucose 219 H 258 H Calcium Phosphorus Total Bilirubin AST ALT Alkaline Phosphatase C-Reactive Protein Total Protein Albumin Globulin Albumin/Globulin Ratio Urine Collection Time Urine Total Volume Urine Creatinine Ur Creatinine 24 Hour Creatinine Clearance Random Vancomycin 07/28/20 07/28/20 07/28/20 06:36 06:36 07:46 WBC RBC Hgb Hct MCV MCH MCHC RDW Std Deviation RDW Coeff of Hilda Plt Count MPV ESR Sodium 138 Potassium 4.1 Chloride 102 Carbon Dioxide 28 Anion Gap 8.0 BUN 42 H Creatinine 3.44 H Est Cr Clr Drug Dosing 23.9 Est GFR ( Amer) 19.5 Est GFR (Non-Af Amer) 16.8 BUN/Creatinine Ratio 12.1 Glucose 245 H POC Glucose 237 H Calcium 8.1 L Phosphorus Total Bilirubin AST ALT Alkaline Phosphatase C-Reactive Protein Total Protein Albumin Globulin Albumin/Globulin Ratio Urine Collection Time Urine Total Volume Urine Creatinine Ur Creatinine 24 Hour Creatinine Clearance Random Vancomycin 22.1 PG Care Time/CCT Total # of Minutes Spent Total Time Spent with Patient: Total time spent is greater than 50% in coordination of care (as documented) at patient's floor/unit and/or counseling patient: Coding Level of Care Code 72730 Subseq Hosp Care Lvl 3 Diagnoses Acute renal failure on dialysis N17.9; Z99.2 Chronic kidney disease, stage III (moderate) N18.3 Gram positive septicemia A41.89 Bacteremia R78.81 Pyelonephritis N12
--- NOTE | 2020-07-28 11:42 | Pharmacy Report ---
Pharmacy Abx Dose Short Note - Date of Service July 28, 2020 - Assessment & Plan Assessment 74 year old M receiving VANCOMYCIN/CEFEPIME for treatment of pyelo/bactermia. Urine culture growing pseudomonas species sensitive to cefepime + enterococcus with sensitivities yet to be identified. Initial set of blood cultures 4/4 positive for strep species- this is likely enterococcus. Will continue vancomycin while awaiting sensitivities. Continue to dose by levels. Discussed with press clipper today, no HD today, but patient had 24 hr Creatinine study, CrCl ~16 ml/min. Will use this to give small supplemental dose later today. Recheck random in AM. Plan Vancomycin * Random level 22.1 this AM after 750 mg dose given at 1500 yesterday, will redose with 500 mg x 1 @1800 and recheck random level in AM * Goal trough level 15-20 mcg/mL Pharmacy will continue to follow and will adjust dose/frequency as necessary. Thank you.
[2020-07-28] MEDS: CIPROFLOXACIN 500 MG TAB PO SCH (13:16)
[2020-07-28] MEDS ORDERED: VANCOMYCIN HCL 500 MG in SODIUM CHLORIDE 0.9% 250 ML IV ONE (18:00)
[2020-07-28] MEDS: FLUTICASONE/VILANTEROL 100/25MCG 14 PUFFS/INHALER INH SCH (21:22)
--- NOTE | 2020-07-28 21:58 | Hospitalist Progress Note ---
Date of Service July 28, 2020 Assessment & Plan (1) Enterococcal septicemia: enterococcus -- 07/25 and 07/26 blood cultures. 07/27 blood cx's negative. echo without valvular vegetations. source - probably the urine as enterococcus is also in 07/25 urine culture. can't rule out his right femoral HD catheter as source, or prior HD catheter right IJ, or his pacer - but much less likely. cont IV vanco. consider ID consultation. plan 14-day course. current right femoral HD catheter appears clean. AV graft, RUE - ultrasound reviewed - no evidence of abscess. (2) UTI (urinary tract infection): catheter-associated / complicated. final urine cx result from 07/25 -- Pseudom fluoresc/putida - sensitive to cipro Enterococcus species = sensitivities pending d/c cefepime; change to cipro to cover pseudomonas species; plan 14 days (assume kidney likely infected on right) cont vanco for enterococcus in urine/blood (3) Fatigue: 2nd to poor sleep? 2nd to septicemia/UTI? other? check VBG am. check ammonia am. did not receive oxycodone today and was still sleepy. re-eval am. (4) Acute respiratory failure with hypoxia: etiology? underlying, suspected COPD? mild volume overload leading to wheezing? combination of the two? VQ scan 07/27/20 with low probability for PE. cont inhalers. wean NC O2, but today during my rounds still needing 2 liters. (5) Acute renal failure on dialysis: developed acute kidney injury in 06/2020 while at [facility]. suspected to be combination of pre-renal injury and obstructive. transferred to [facility] for right-sided ureteral stent placement and right- sided nephrostomy tube placement as imaging in June showed hydronephrosis with UVJ obstruction. despite placement of the above tubes it sounds as if his renal function continued to worsen and HD was initiated. date of HD initiation uncertain. appreciate Dr Perry's consultation. defer on HD again today per Dr Perry's recommendation. UOP has been adequate. daily BMP. RUE AV graft wnl. Surgeons in [place] prefer that 2 weeks pass since AV graft surgery before using it for HD purposes (placement - 07/21/2020). (6) Smoker: career development counselor to quit provide nicoderm patch (7) Chronic pancreatitis: prior etoh use?? cont creon TID w/ meals (8) Insulin-requiring or dependent type II diabetes mellitus: cont lantus BID; increase due to persistent hyperglycemia cont novolog CF and carb coverage (9) Hypertension: cont home meds controlled (10) Hyperlipidemia LDL goal <70: cont statin (11) GERD (gastroesophageal reflux disease): (12) Hypothyroidism (acquired): repeat TSH mildly elevated increased synthroid to 100mcg daily repeat TSH in 6 weeks as outpatient (13) Peripheral neuropathy: 2nd DM?? cont gabapentin- renally adjust (14) History of permanent cardiac pacemaker placement: noted (15) COPD (chronic obstructive pulmonary disease): suspected long-standing tobacco usage emphysema seen on CT chest cont inhalers cont NC O2 VQ scan with low prob for PE (16) DVT prophylaxis: heparin 5000 BID cont PT, OT request d/c summaries from 2 recent stays at [facility] making progress Admission and Anticipated Discharge Date Admission Date: July 25, 2020 Subjective patient very sleepy during the visit but able to carry a conversation and answer questions. he blames the sleepiness on poor sleep since being admitted to the hospital. he is tired from the PT/OT, etc. he denies any cough, dyspnea at rest, or orthopnea. I removed his O2 during the visit - O2 sats promptly dropped to 88% in RA. he denies any pain over his RUE AV graft. has chronic back pain - no change in such, however. eating very well (100% meals). no diarrhea. tele with pacing overnight. Review of Systems Constitutional: + fatigue and + weakness; no fever, no chills and no anorexia Respiratory: no sputum production and no wheezing Cardiovascular: no chest pain, no dyspnea at rest, no orthopnea, no paroxysmal nocturnal dyspnea and no edema Gastrointestinal: no abdominal pain, no nausea, no vomiting and no diarrhea/loose stools Physical Exam Constitutional: no acute distress and no altered mental status (but sleepy at times during the visit ) ENMT: external ear and nose normal, oropharynx normal Respiratory: no respiratory distress Auscultation: + diminished lung sounds and + wheezes (end-exp) Cardiovascular: Rate/Rhythm: regular rate and regular rhythm Heart Sounds: normal S1, normal S2 and + murmur (1/6 LSB systolic) Vessels: + JVD (very mild ), posterior tibial pulses present and dorsalis pedis pulses present Extremities: + edema (trace RLE; none on left), + vascular access device (right femoral vein -- insertion site clean, no erythema) and + AV fistula (right arm with +bruit and thrill. incision clean, no drainage. ) Gastrointestinal (Abdomen): normal bowel sounds, soft, nontender, no hepatosplenomegaly nephrostomy in place on right; urine slightly dark but not cloudy; no gross hematuria Psychiatric: A+Ox3, euthymic affect Results & Data Results & Data ([facility]) Vital Signs (Past 12 Hours) Vital Signs Temp Pulse Resp BP Pulse Ox 07/28/20 19:58 36.8 C 60 14 135/72 94 07/28/20 15:43 36.7 C 62 20 136/72 94 Laboratory Results Laboratory Results - last 24 hr 07/28/20 07/28/20 07/28/20 06:36 06:36 06:36 WBC 8.63 RBC 3.44 L Hgb 10.0 L Hct 33.3 L MCV 96.8 MCH 29.1 MCHC 30.0 L RDW Std Deviation 58.8 H RDW Coeff of Hilda 16.6 H Plt Count 413 H MPV 9.5 Sodium 138 Potassium 4.1 Chloride 102 Carbon Dioxide 28 Anion Gap 8.0 BUN 42 H Creatinine 3.44 H Est Cr Clr Drug Dosing 23.9 Est GFR ( Amer) 19.5 Est GFR (Non-Af Amer) 16.8 BUN/Creatinine Ratio 12.1 Glucose 245 H POC Glucose Calcium 8.1 L Random Vancomycin 22.1 07/28/20 07/28/20 07/28/20 07:46 11:56 16:55 WBC RBC Hgb Hct MCV MCH MCHC RDW Std Deviation RDW Coeff of Hilda Plt Count MPV Sodium Potassium Chloride Carbon Dioxide Anion Gap BUN Creatinine Est Cr Clr Drug Dosing Est GFR ( Amer) Est GFR (Non-Af Amer) BUN/Creatinine Ratio Glucose POC Glucose 237 H 233 H 125 H Calcium Random Vancomycin 07/28/20 20:35 WBC RBC Hgb Hct MCV MCH MCHC RDW Std Deviation RDW Coeff of Hilda Plt Count MPV Sodium Potassium Chloride Carbon Dioxide Anion Gap BUN Creatinine Est Cr Clr Drug Dosing Est GFR ( Amer) Est GFR (Non-Af Amer) BUN/Creatinine Ratio Glucose POC Glucose 180 H Calcium Random Vancomycin Diagnostic Findings 07/25 urine cx -- Pseudom fluoresc/putida - sens to cipro Enterococcus species = sensitivities pending 07/25 and 07/26 blood cx's - enterococcus, sensitive to amp/dapto/vanco PG Care Time/CCT Total # of Minutes Spent Total Time Spent with Patient: Total time spent is greater than 50% in coordination of care (as documented) at patient's floor/unit and/or counseling patient: Coding Level of Care Code 92361 Subseq Hosp Care Lvl 3 Diagnoses Enterococcal septicemia A41.81 UTI (urinary tract infection) T83.512D; N39.0 Urinary tract infection type: catheter-associated UTI Indwelling urinary catheter type: nephrostomy catheter Encounter type: subsequent encounter Fatigue R53.83 Fatigue type: unspecified Acute respiratory failure with hypoxia J96.01 Acute renal failure on dialysis N17.9; Z99.2 Smoker F17.200 Chronic pancreatitis K86.1 Pancreatitis type: unspecified pancreatitis type Insulin-requiring or dependent type II diabetes mellitus E11.9; Z79.4 Hypertension I10 Hypertension type: essential hypertension Hyperlipidemia LDL goal <70 E78.5 GERD (gastroesophageal reflux disease) K21.9 Esophagitis presence: esophagitis presence not specified Hypothyroidism (acquired) E03.9 Peripheral neuropathy G62.9 Peripheral neuropathy type: polyneuropathy, unspecified History of permanent cardiac pacemaker placement Z95.0 COPD (chronic obstructive pulmonary disease) J44.9 COPD type: unspecified COPD DVT prophylaxis Z29.9 (1) UTI (urinary tract infection) Urinary tract infection type: catheter-associated UTI Indwelling urinary catheter type: nephrostomy catheter Encounter type: subsequent encounter Qualified Code(s): T83.512D - Infection and inflammatory reaction due to nephrostomy catheter, subsequent encounter; N39.0 - Urinary tract infection, site not specified (2) Chronic pancreatitis Pancreatitis type: unspecified pancreatitis type Qualified Code(s): K86.1 - Other chronic pancreatitis (3) Hypertension Hypertension type: essential hypertension Qualified Code(s): I10 - Essential (primary) hypertension (4) GERD (gastroesophageal reflux disease) Esophagitis presence: esophagitis presence not specified Qualified Code(s): K21.9 - Gastro-esophageal reflux disease without esophagitis (5) Peripheral neuropathy Peripheral neuropathy type: polyneuropathy, unspecified Qualified Code(s): G62.9 - Polyneuropathy, unspecified (6) COPD (chronic obstructive pulmonary disease) COPD type: unspecified COPD Qualified Code(s): J44.9 - Chronic obstructive pulmonary disease, unspecified (7) Fatigue Fatigue type: unspecified Qualified Code(s): R53.83 - Other fatigue
[2020-07-29] MEDS: MELATONIN 3 MG TAB PO PRN ×2 (00:52→22:59)
[2020-07-29] MEDS: LEVOTHYROXINE SODIUM 100 MCG TABLET PO SCH (06:17)
[2020-07-29 06:35] LABS: Base Excess VBG 3.3 mEq/L; Oxygen Saturation VBG 84.5 %; pH VBG 7.42 (7.36-7.41)
[2020-07-29 07:03] LABS: BUN Creatinine Ratio 12.5 (10-20); Calcium 8.7 mg/dl (8.5-10.1); Est GFR (African American) 18.6
[2020-07-29] MEDS: INSULIN GLARGINE SOLOSTAR 100 UNITS/ML 3 ML PEN SC SCH ×2 (08:30→21:13)
[2020-07-29] MEDS: INSULIN ASPART 100 UNITS/ML 3 ML PEN SC SCH ×4 (08:30→21:13)
[2020-07-29] MEDS: HEPARIN SOD 5,000 UNIT/0.5 ML VIAL SQ SCH ×2 (08:31→20:29)
[2020-07-29] MEDS: PANCREAZE (LIPASE 10,500U) CAP PO SCH ×3 (09:33→17:14)
[2020-07-29] MEDS: METOPROLOL TARTRATE 25 MG TAB PO SCH ×2 (09:34→20:30)
[2020-07-29] MEDS: CIPROFLOXACIN 500 MG TAB PO SCH (09:34)
[2020-07-29] MEDS: MAGNESIUM OXIDE 400 MG TAB PO SCH (09:34)
[2020-07-29] MEDS: GABAPENTIN 300 MG CAP PO SCH (09:34)
[2020-07-29] MEDS: ASPIRIN 81 MG ECTAB PO SCH (09:34)
[2020-07-29] MEDS: DAPTOmycin 550 MG in SYRINGE 0 ML IV SCH (09:34)
[2020-07-29] MEDS: amLODIPine BESYLATE 5 MG TAB PO SCH (09:35)
[2020-07-29] MEDS: NICOTINE 14 MG/24 HR PATCH TD SCH (09:35)
[2020-07-29] MEDS: hydrALAZINE 10 MG TAB PO SCH ×2 (09:35→20:28)
[2020-07-29] MEDS: CEROVITE ADV FORMULA TAB PO SCH (09:36)
[2020-07-29] MEDS ORDERED: FUROSEMIDE 40 MG TAB PO ONE (09:50)
--- NOTE | 2020-07-29 10:21 | Nephrology Progress Note ---
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 Howell as an outpatient * Creatinine clearance 16 ml/min * Creatinine remains stable at 3.5 mg/dL * Electrolytes acceptable * Volume status euvolemic * Adequate urine output * Furosemide 40 mg PO provided today to encourage slightly negative fluid balance * Will hold HD today for additional monitoring * I have confirmation from Dr. Bonilla that AVG is acceptable to use if needed * Dr. Conde consulted for removal of TDC today * Document I/O's * Repeat metabolic profile tomorrow AM * Vanco level 20. Switched to Dapto q 48 hr today. * Medications appropriately dosed for kidney function. Gabapentin reduced to 300 mg daily for kidney dysfunction. (2) Chronic kidney disease, stage III (moderate): * Baseline creatinine 2.0 mg/dL prior to starting HD for JIMMY (3) Gram positive septicemia: * Treated witch vanco switched to Dapto today * ID consult pending today * Blood cultures x 2 positive for Enterococcus faecalis on 07/25 and 1/2 positive on 07/26. Cultures 07/27 NGTD * TDC to be removed today * US of AVG did not show any fluid collection or abscess * TTE no vegetation (4) Bacteremia: * Source unclear, urine: E faecium (VRE) and blood: E faecalis (5) Pyelonephritis: * Culture + VRE * Remains on cefepime * PCN draining clear yellow urine Admission and Anticipated Discharge Date Admission Date: July 25, 2020 Subjective No acute events overnight. Palomo states that he feels well this morning. Better sleep last night. Remains tired but denies other concerns. No fevers or chills. Denies shortness of breath. Remains on 2 L O2 via NC. Review of Systems Review of Systems: All systems reviewed & are unremarkable except as noted in HPI & below Physical Exam Constitutional: well developed; no acute distress Eyes: + anicteric sclerae; no corneal abnormality ENMT: Mouth: no oral mucosal abnormality and oral mucous membranes not dry Neck: normal visual inspection and trachea midline Respiratory: normal respiratory effort Auscultation: lungs clear to auscultation bilaterally Cardiovascular: Rate/Rhythm: regular rate Heart Sounds: normal S1 and normal S2; no murmur Vessels: no JVD Extremities: + AV fistula (AVG RUE); no edema R femoral TDC Musculoskeletal: Extremities: no cyanosis and no clubbing Skin: normal turgor; no lesions Neurologic: Motor/Sensory: no tremor and no asterixis Psychiatric: Orientation: alert and oriented x 3 Results & Data ([facility]) Vital Signs (Past 12 Hours) Vital Signs Temp Pulse Pulse Resp BP Pulse Ox 07/29/20 07:37 36.8 C 60 20 126/65 98 07/29/20 03:00 37.1 C 60 20 143/71 H 91 07/29/20 01:12 60 07/28/20 23:00 36.8 C 60 20 136/69 94 Laboratory Results Laboratory Results - last 24 hr 07/28/20 07/28/20 07/28/20 11:56 16:55 20:35 VBG pH VBG pCO2 VBG pO2 VBG HCO3 VBG O2 Saturation VBG Base Excess Barometric Pressure Sodium Potassium Chloride Carbon Dioxide Anion Gap BUN Creatinine Est Cr Clr Drug Dosing Est GFR ( Amer) Est GFR (Non-Af Amer) BUN/Creatinine Ratio Glucose POC Glucose 233 H 125 H 180 H Calcium Ammonia Random Vancomycin 07/29/20 07/29/20 07/29/20 06:14 06:14 06:14 VBG pH 7.42 H VBG pCO2 44 VBG pO2 53 VBG HCO3 28 VBG O2 Saturation 84.5 VBG Base Excess 3.3 Barometric Pressure 733.9 Sodium 141 Potassium 4.0 Chloride 105 Carbon Dioxide 27 Anion Gap 9.0 BUN 45 H Creatinine 3.58 H Est Cr Clr Drug Dosing 23.0 Est GFR ( Amer) 18.6 Est GFR (Non-Af Amer) 16.0 BUN/Creatinine Ratio 12.5 Glucose 124 H POC Glucose Calcium 8.7 Ammonia 30.8 Random Vancomycin 07/29/20 07/29/20 06:14 07:50 VBG pH VBG pCO2 VBG pO2 VBG HCO3 VBG O2 Saturation VBG Base Excess Barometric Pressure Sodium Potassium Chloride Carbon Dioxide Anion Gap BUN Creatinine Est Cr Clr Drug Dosing Est GFR ( Amer) Est GFR (Non-Af Amer) BUN/Creatinine Ratio Glucose POC Glucose 129 H Calcium Ammonia Random Vancomycin 20.6 PG Care Time/CCT Total # of Minutes Spent Total Time Spent with Patient: Total time spent is greater than 50% in coordination of care (as documented) at patient's floor/unit and/or counseling patient: Coding Level of Care Code 53974 Subseq Hosp Care Lvl 3 Diagnoses Acute renal failure on dialysis N17.9; Z99.2 Chronic kidney disease, stage III (moderate) N18.3 Gram positive septicemia A41.89 Bacteremia R78.81 Pyelonephritis N12
--- NOTE | 2020-07-29 10:37 | Consultation ---
Date of Consultation July 29, 2020 Assessment & Plan (1) Acute renal failure on dialysis: Pt no longer requiring HD. RUE AVF with good thrill/bruit, should be usable whenever his surgeon recommends if needed in future. Will removal R femoral permcath in OR today. Pt agreeable. Patient was seen, examined, and chart reviewed. Agree with exam and treatment plan of the Vascular PA. I have discussed the risks options and benefits of the procedure with the patient. The patient understands the risks options and benefits and agrees to the procedure. History of Present Illness Reason for Consultation: need permcath removal Attending Physician: Spencer Meng History of Present Illness 74 yo m with multiple medical problems, including CKD, chronic pancreatitis, DMII, GERD, hypothyroidism, bradycardia s/p pacemaker, hx agent orange exposure, peripheral neuropathy, NSTEMI, seen in consultation today for removal of his R femoral permcath. Pt also with nephrostomy tubes. Pt has recent hx of acute on chronic kidney failure, and was started in HD about 2 weeks ago at [place]. Per nephrology, pt has not required HD in nearly 1 week, so they requested permcath removal. Pt also had R upper arm AV graft placement 2 weeks ago at [place]. Pt admits fatigue/malaise. Denies GAYLE, fever, chest pain, SOB, abdpain, N/V, rest pain, claudication, other complaints. Allergies Allergy/AdvReac Type Severity Reaction Status Date / Time ASPIRIN (IN DOSES LARGER AdvReac Intermediate N/V Uncoded 07/25/20 15:05 THAN 81MG) Home Medications Home Medications Medication Instructions Recorded Confirmed Type Creon 1 cap PO TIDM #0 05/22/15 07/25/20 History aspirin 81 mg PO QAM #0 05/22/15 07/25/20 History gabapentin 300 mg PO BID #0 05/22/15 07/25/20 History grape seed extract 100 mg PO QPM #0 05/22/15 07/25/20 History levothyroxine 88 mcg PO QAM #0 05/22/15 07/25/20 History multivitamin with minerals [Men's 1 tab PO DAILY #0 05/22/15 07/25/20 History One Daily] Lantus Solostar U-100 Insulin 0 unit SUBCUT HS #0 pen 05/05/18 06/22/20 History atorvastatin [Lipitor] 40 mg PO QAM #0 tab 05/05/18 07/25/20 History magnesium oxide 500 mg PO QAM #0 05/05/18 07/25/20 History metoprolol tartrate 25 mg PO BID 12/29/19 07/25/20 History amlodipine 5 mg PO QAM 06/22/20 07/25/20 History hydralazine 10 mg PO BID 06/22/20 07/25/20 History albuterol sulfate [Ventolin HFA] 2 puff INHALATION QID PRN 07/25/20 07/25/20 History budesonide-formoterol [Symbicort] 2 inh INHALATION HS PRN 07/25/20 07/25/20 History insulin asp prt-insulin aspart 0 unit SUBCUT UD 07/25/20 07/25/20 History [Novolog Mix 70-30FlexPen U-100] oxycodone-acetaminophen [Percocet] 1 tab PO Q4H PRN 07/25/20 07/25/20 History Patient History Medical History Acute renal failure on dialysis Agent [place] poisoning Chronic kidney disease, stage III (moderate) Chronic pancreatitis Elevated troponin GERD (gastroesophageal reflux disease) History of pacemaker Hyperlipidemia LDL goal <70 Hypertension Hypothyroidism (acquired) Insulin-requiring or dependent type II diabetes mellitus Morbid obesity Pancreatic insufficiency Peripheral neuropathy Smoker Surgical History History of permanent cardiac pacemaker placement Family History Other Family history non-contributory Social History Smoking Status: Current every day smoker Tobacco Type: Cigarettes Cigarettes Per Day: 15; Second Hand Exposure: No; Hx Alcohol Use: No Hx Substance Use: No Preferred Language: Macedonian Communication Ability: Effective Communication Ability Comment: at times confused Clothing Cutter Required: No Beliefs That Will Affect Care: None marital status: Current Living Situation: Spouse Other Information That Helps Us Care for You: No Feels Safe at Home: Yes Safety Concerns: Feels Safe At This Time Assistive Devices: Oxygen - Continuous and Walker Review of Systems Review of Systems: All systems reviewed & are unremarkable except as noted in HPI & below Physical Exam Constitutional: WD/WN, vitals as above cooperative and comfortable; not in distress Eyes: PERRL, conjunctivae normal, anicteric sclerae ENMT: Ears: no hearing impairment and no external ear abnormality Neck: trachea midline Respiratory: normal respiratory effort; no respiratory distress Auscultation: + diminished lung sounds Cardiovascular: RRR, no murmur, no edema Vessels: femoral pulses present, posterior tibial pulses present, dorsalis pedis pulses present and radial pulses present; + abnormal peripheral pulses Extremities: normal capillary refill, + vascular access device (R femoral permcath site without tenderness/erythema/drainage) and + AV fistula (RUE AVF incisions C/D/I, +excellent thrill/bruit, mild local resolving ecch) Gastrointestinal (Abdomen): normal bowel sounds, soft, nontender, no hepatosplenomegaly Musculoskeletal: no cyanosis or clubbing, extremities motor strength 5/5 Skin: no rashes, warm and dry Neurologic: moves all extremities and awake; no focal motor deficits and not confused Psychiatric: A+Ox3, euthymic affect Results & Data ([facility]) Vital Signs (Past 12 Hours) Vital Signs Temp Pulse Pulse Resp BP Pulse Ox 07/29/20 07:37 36.8 C 60 20 126/65 98 07/29/20 03:00 37.1 C 60 20 143/71 H 91 07/29/20 01:12 60 07/28/20 23:00 36.8 C 60 20 136/69 94
[2020-07-29] MEDS ORDERED: LIDOCAINE HCL 1% 20 ML VIAL ONE (10:42)
[2020-07-29] MEDS ORDERED: Nursing to Pharmacy Communication SCH ×2 (10:45→11:30)
--- NOTE | 2020-07-29 11:11 | Operative Report ---
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 Off dialysis at present. Removal was recommended due to bacteremia. I have discussed the risks options and benefits of the procedure with the patient. The patient understands the risks options and benefits and agrees to the procedure. Description of Procedure The patient was taken to the angio suite and placed in the supine position. The patient was identified and a timeout performed. The right groin and catheter were prepped and draped in a sterile manner. The sutures were removed. The catheter itself was loose in the tunnel. The permcath and cuff were completely removed very easily. Pressure was then applied and adequate hemosta sis was obtained. A sterile dressing was then applied. The patient left the holding area in satisfactory condition and tolerated the procedure well. All needle and sponge counts were correct at the end of the procedure. I attest to the content of the Intraoperative Record and any orders documented therein. Any exceptions are noted below.
[2020-07-29] MEDS ORDERED: INSULIN ASPART 100 UNITS/ML 3 ML PEN SC SCH (12:00)
[2020-07-29] MEDS: FLUTICASONE/VILANTEROL 100/25MCG 14 PUFFS/INHALER INH SCH (20:27)
--- NOTE | 2020-07-29 22:13 | Hospitalist Progress Note ---
Date of Service July 29, 2020 Assessment & Plan (1) Enterococcal septicemia: enterococcus -- 07/25, 07/26, and 07/27 blood cultures + for enterococcus faecalis. sensitive to ampicillin, daptomycin, vanco. echo without valvular vegetations but study was limited. source - right femoral permcath? unfortunately tip of catheter not sent for culture following removal today. I cannot rule out the AV graft, RUE, as potential source. Recent u/s, however, was fairly normal. I cannot rule out his pacemaker as a potential source either. But femoral catheters carry great risk of infection (>15%) and thus this is likely source. Now that right femoral catheter has been removed I am hopeful that blood cx's will clear. Will repeat 2 more sets of blood cx's now. Vancomycin changed to IV daptomycin today -- this will cover the VRE in urine, and the enterococcus in blood. ID consultation with Samia requested for assistance with this complicated gentleman. (2) UTI (urinary tract infection): catheter-associated / complicated. final urine cx result from 07/25 -- Pseudom fluoresc/putida - sensitive to cipro VRE - sensitive to daptomycin continue PO cipro for pseudomonas change vanco to IV daptomycin to cover VRE ID consultation with Samia requested today (3) Acute renal failure on dialysis: developed acute kidney injury in 06/2020 while at [facility]. suspected to be combination of pre-renal injury and obstructive. transferred to [facility] for right-sided ureteral stent placement and right- sided nephrostomy tube placement as imaging in June showed hydronephrosis with UVJ obstruction. despite placement of the above tubes it sounds as if his renal function continued to worsen and HD was initiated. date of HD initiation uncertain. by history he had a tunneled right IJ HD catheter that malfunctioned and was removed. ultimately had right femoral HD catheter placed -- this was removed today. he also underwent RUE AV graft creation on 07/21/2020. Surgeons in [place] prefer that 2 weeks pass since AV graft surgery before using it for HD purposes. patient's urine output remains adequate, K level is stable, and volume status is stable. spoke with Dr Perry today - will defer on dialysis again today. with respect to nephrostomy tube - cap the tube? remove the tube? leave as is? patient reports that [place] was going to remove the tube soon. strongly consider formal urology consult here. (4) Fatigue: probably 2nd to host of factors including septicemia/UTI, gabapentin, narcotics, etc. VBG w/o hypercarbia. ammonia level wnl. (5) Acute respiratory failure with hypoxia: etiology? underlying, suspected COPD? mild volume overload leading to wheezing? combination of the two? VQ scan 07/27/20 with low probability for PE. cont inhalers. (6) Smoker: correctional substance abuse counselor to quit nicoderm patch (7) Chronic pancreatitis: prior etoh use?? cont creon TID w/ meals (8) Insulin-requiring or dependent type II diabetes mellitus: cont lantus BID cont novolog CF and carb coverage control adequate (9) Hypertension: cont home meds controlled (10) Hyperlipidemia LDL goal <70: cont statin (11) GERD (gastroesophageal reflux disease): (12) Hypothyroidism (acquired): repeat TSH mildly elevated increased synthroid to 100mcg daily this admission repeat TSH in 6 weeks as outpatient (13) Peripheral neuropathy: 2nd DM?? cont gabapentin- renally adjusted (14) History of permanent cardiac pacemaker placement: noted (15) COPD (chronic obstructive pulmonary disease): suspected long-standing tobacco usage emphysema seen on CT chest cont inhalers cont NC O2 VQ scan with low prob for PE (16) DVT prophylaxis: heparin 5000 BID cont PT, OT request d/c summaries from 2 recent stays at [facility] Lianne making progress updated today Admission and Anticipated Discharge Date Admission Date: July 25, 2020 Subjective saw patient post-removal of right femoral HD catheter. patient feeling well today. denies any new complaints. he is frustrated, however, by needing frequent blood work. denies dyspnea. denies diarrhea. denies chest pain. telemetry - pacing. Review of Systems Constitutional: no fever and no chills Respiratory: no cough and no dyspnea Cardiovascular: no chest pain Gastrointestinal: no abdominal pain Physical Exam Constitutional: no acute distress and no altered mental status ENMT: external ear and nose normal, oropharynx normal Respiratory: no respiratory distress Auscultation: + diminished lung sounds, + crackles (Mild - bases ) and + wheezes (end-exp) Cardiovascular: Rate/Rhythm: regular rate and regular rhythm Heart Sounds: normal S1, normal S2 and + murmur (1/6 LSB systolic) Vessels: + JVD (very mild ), posterior tibial pulses present and dorsalis pedis pulses present Extremities: + edema (trace RLE; none on left) and + AV fistula (right arm with +bruit and thrill. incision clean, no drainage. ) Gastrointestinal (Abdomen): normal bowel sounds, soft, nontender, no hepatosplenomegaly Musculoskeletal: right sided nephrostomy tube intact draining clear urine to collection bag Psychiatric: A+Ox3, euthymic affect Results & Data Results & Data ([facility]) Vital Signs (Past 12 Hours) Vital Signs Temp Pulse Pulse Resp BP Pulse Ox 07/29/20 19:00 37 C 59 L 20 137/64 95 07/29/20 15:14 37.0 C 63 18 127/65 93 07/29/20 15:00 61 07/29/20 11:13 36.9 C 60 18 145/63 H 98 Laboratory Results Laboratory Results - last 24 hr 07/29/20 07/29/20 07/29/20 06:14 06:14 06:14 VBG pH 7.42 H VBG pCO2 44 VBG pO2 53 VBG HCO3 28 VBG O2 Saturation 84.5 VBG Base Excess 3.3 Barometric Pressure 733.9 Sodium 141 Potassium 4.0 Chloride 105 Carbon Dioxide 27 Anion Gap 9.0 BUN 45 H Creatinine 3.58 H Est Cr Clr Drug Dosing 23.0 Est GFR ( Amer) 18.6 Est GFR (Non-Af Amer) 16.0 BUN/Creatinine Ratio 12.5 Glucose 124 H POC Glucose Calcium 8.7 Ammonia 30.8 Random Vancomycin 07/29/20 07/29/20 07/29/20 06:14 07:50 12:21 VBG pH VBG pCO2 VBG pO2 VBG HCO3 VBG O2 Saturation VBG Base Excess Barometric Pressure Sodium Potassium Chloride Carbon Dioxide Anion Gap BUN Creatinine Est Cr Clr Drug Dosing Est GFR ( Amer) Est GFR (Non-Af Amer) BUN/Creatinine Ratio Glucose POC Glucose 129 H 146 H Calcium Ammonia Random Vancomycin 20.6 07/29/20 07/29/20 16:38 20:41 VBG pH VBG pCO2 VBG pO2 VBG HCO3 VBG O2 Saturation VBG Base Excess Barometric Pressure Sodium Potassium Chloride Carbon Dioxide Anion Gap BUN Creatinine Est Cr Clr Drug Dosing Est GFR ( Amer) Est GFR (Non-Af Amer) BUN/Creatinine Ratio Glucose POC Glucose 157 H 206 H Calcium Ammonia Random Vancomycin urine cx - final - pseudomonas species sens to cipro; VRE - sens to daptomycin. blood cx's - enterococcus faecalis PG Care Time/CCT Total # of Minutes Spent Total Time Spent with Patient: Total time spent is greater than 50% in coordination of care (as documented) at patient's floor/unit and/or counseling patient: Coding Level of Care Code 03809 Subseq Hosp Care Lvl 3 Diagnoses Enterococcal septicemia A41.81 UTI (urinary tract infection) T83.512D; N39.0 Encounter type: subsequent encounter Indwelling urinary catheter type: nephrostomy catheter Urinary tract infection type: catheter-associated UTI Acute renal failure on dialysis N17.9; Z99.2 Fatigue R53.83 Fatigue type: unspecified Acute respiratory failure with hypoxia J96.01 Smoker F17.200 Chronic pancreatitis K86.1 Pancreatitis type: unspecified pancreatitis type Insulin-requiring or dependent type II diabetes mellitus E11.9; Z79.4 Hypertension I10 Hypertension type: essential hypertension Hyperlipidemia LDL goal <70 E78.5 GERD (gastroesophageal reflux disease) K21.9 Esophagitis presence: esophagitis presence not specified Hypothyroidism (acquired) E03.9 Peripheral neuropathy G62.9 Peripheral neuropathy type: polyneuropathy, unspecified History of permanent cardiac pacemaker placement Z95.0 COPD (chronic obstructive pulmonary disease) J44.9 COPD type: unspecified COPD DVT prophylaxis Z29.9 (1) UTI (urinary tract infection) Encounter type: subsequent encounter Indwelling urinary catheter type: nephrostomy catheter Urinary tract infection type: catheter-associated UTI Qualified Code(s): T83.512D - Infection and inflammatory reaction due to nephrostomy catheter, subsequent encounter; N39.0 - Urinary tract infection, site not specified (2) Fatigue Fatigue type: unspecified Qualified Code(s): R53.83 - Other fatigue (3) Peripheral neuropathy Peripheral neuropathy type: polyneuropathy, unspecified Qualified Code(s): G62.9 - Polyneuropathy, unspecified (4) Chronic pancreatitis Pancreatitis type: unspecified pancreatitis type Qualified Code(s): K86.1 - Other chronic pancreatitis (5) COPD (chronic obstructive pulmonary disease) COPD type: unspecified COPD Qualified Code(s): J44.9 - Chronic obstructive pulmonary disease, unspecified (6) GERD (gastroesophageal reflux disease) Esophagitis presence: esophagitis presence not specified Qualified Code(s): K21.9 - Gastro-esophageal reflux disease without esophagitis (7) Hypertension Hypertension type: essential hypertension Qualified Code(s): I10 - Essential (primary) hypertension
[2020-07-30] MEDS: LEVOTHYROXINE SODIUM 100 MCG TABLET PO SCH (05:41)
[2020-07-30 07:05] LABS: BUN Creatinine Ratio 13.9 (10-20); Calcium 8.4 mg/dl (8.5-10.1); Est GFR (African American) 19.6; Est GFR (Non-African American) 16.9; Potassium 3.9 mmol/L (3.5-5.1)
[2020-07-30] MEDS: HEPARIN SOD 5,000 UNIT/0.5 ML VIAL SQ SCH ×2 (07:26→20:54)
[2020-07-30] MEDS: NICOTINE 14 MG/24 HR PATCH TD SCH (07:27)
[2020-07-30] MEDS: INSULIN ASPART 100 UNITS/ML 3 ML PEN SC SCH ×4 (08:11→20:56)
[2020-07-30] MEDS: INSULIN GLARGINE SOLOSTAR 100 UNITS/ML 3 ML PEN SC SCH ×2 (08:11→20:56)
[2020-07-30] MEDS: METOPROLOL TARTRATE 25 MG TAB PO SCH ×2 (08:12→20:55)
[2020-07-30] MEDS: CEROVITE ADV FORMULA TAB PO SCH (08:12)
[2020-07-30] MEDS: GABAPENTIN 300 MG CAP PO SCH (08:12)
[2020-07-30] MEDS: hydrALAZINE 10 MG TAB PO SCH ×2 (08:12→20:54)
[2020-07-30] MEDS: amLODIPine BESYLATE 5 MG TAB PO SCH (08:12)
[2020-07-30] MEDS: ASPIRIN 81 MG ECTAB PO SCH (08:12)
[2020-07-30] MEDS: PANCREAZE (LIPASE 10,500U) CAP PO SCH ×3 (08:12→17:15)
[2020-07-30] MEDS: MAGNESIUM OXIDE 400 MG TAB PO SCH (08:12)
[2020-07-30] MEDS: CIPROFLOXACIN 500 MG TAB PO SCH (08:12)
--- NOTE | 2020-07-30 11:26 | Nephrology Progress Note ---
Date of Service July 30, 2020 Assessment & Plan (1) Acute renal failure on dialysis: * ATN due to obstructive uropathy s/p R percutaneous nephrostomy. 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 Volume status and electrolyte balance are acceptable. Patient is nonoliguric. No acute indication for HD today * AVG can be used for HD if needed * R femoral TDC removed 07/29/20 (2) Chronic kidney disease, stage III (moderate): * Baseline creatinine 2.0 mg/dL prior to starting HD for JIMMY (3) Gram positive septicemia: * Blood cultures x 2 positive for Enterococcus faecalis on 07/25 and 1/2 positive on 07/26. Cultures 07/27 NGTD * US of AVG did not show any fluid collection or abscess * TTE no vegetation * Currently on IV Daptomycin (4) Pyelonephritis: * Culture + VRE * PCN draining clear yellow urine * On IV Daptomycin. Consider stopping oral Cipro Admission and Anticipated Discharge Date Admission Date: July 25, 2020 Subjective Mr. Morales was seen & examined in his hospital room this morning. He denied fever or flank discomfort. His R femoral THC was removed yesterday Review of Systems Constitutional: no fever Eyes: no problem reported Ear, Nose, Mouth, Throat: no problem reported Respiratory: no dyspnea Cardiovascular: no chest pain and no edema Gastrointestinal: no abdominal pain and no diarrhea/loose stools Genitourinary: no hematuria Musculoskeletal: no back pain Integumentary: no rash Neurologic: no dizziness Physical Exam Constitutional: not in distress Eyes: PERRL, conjunctivae normal, anicteric sclerae ENMT: external ear and nose normal, oropharynx normal Neck: trachea midline, no thyromegaly Respiratory: normal respiratory effort, lungs clear to auscultation Cardiovascular: RRR, no murmur, no edema Gastrointestinal (Abdomen): normal bowel sounds, soft, nontender, no hepatosplenomegaly Musculoskeletal: Extremities: no cyanosis Skin: no rashes, warm and dry Neurologic: awake; not confused Genitourinary: R perc nephrostomy draining clear, yellow urine Results & Data ([facility]) Vital Signs (Past 12 Hours) Vital Signs Temp Pulse Pulse Resp BP Pulse Ox 07/30/20 03:00 37.3 C 61 20 124/71 92 07/30/20 01:22 60 Laboratory Tests 07/28/20 07/30/20 06:36 05:54 WBC 8.63 Hgb 10.0 L Hct 33.3 L Plt Count 413 H Sodium 141 Potassium 3.9 Chloride 105 Carbon Dioxide 30 BUN 48 H Creatinine 3.43 H Glucose 134 H Calcium 8.4 L PG Care Time/CCT Total # of Minutes Spent Total Time Spent with Patient: Total time spent is greater than 50% in coordination of care (as documented) at patient's floor/unit and/or counseling patient: Coding Level of Care Code 97710 Subseq Hosp Care Lvl 3 Diagnoses Acute renal failure on dialysis N17.9; Z99.2 Chronic kidney disease, stage III (moderate) N18.3 Gram positive septicemia A41.89 Pyelonephritis N12
--- NOTE | 2020-07-30 13:02 | Hospitalist Progress Note ---
Date of Service July 30, 2020 Assessment & Plan (1) Enterococcal septicemia: Blood cultures grew Enterococcus faecalis on 07/25, 07/26, and 07/27; sensitive to ampicillin, daptomycin, vanco. - ALONDRA on 07/26 without valvular vegetations but study was limited. - Source presumed to be right femoral permcath which was removed on 07/[address] Conde; unfortunately tip of catheter not sent for culture. 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 - Femoral catheters carry great risk of infection (>15%), and thus this is likely source. - Vanc changed to daptomycin on 07/29. - Repeat blood cultures on 07/29 still negative. - [facility] ID consulted - Pending. (2) UTI (urinary tract infection): Catheter-associated / complicated. Urine cx from 07/25 grew Pseudomonas fluoresc/putida (sensitive to Cipro) & VRE sensitive only to daptomycin. - Continue PO Cipro for pseudomonas - Changed vanc to daptomycin to cover VRE on 07/29 - Duration unclear - ID consultation as above (3) Acute renal failure on dialysis: Developed acute kidney injury in 06/2020 while at [facility]. Suspected to be combination of pre-renal injury and obstructive. - Transferred to [facility] for right-sided ureteral stent placement and right-sided nephrostomy tube placement as imaging in June showed hydronephrosis with UVJ obstruction. - Despite placement of the above tubes it sounds as if his renal function continued to worsen and HD was initiated. - By history, he had a tunneled right IJ HD catheter that malfunctioned and was removed. Ultimately had right femoral HD catheter placed -- this was removed on 07/30. - He also underwent RUE AV graft creation on 07/21/2020. - Surgeons in [place] prefer that 2 weeks pass since AV graft surgery before using it for HD purposes. - Nephrology following: patient's urine output remains adequate, K level is stable, and volume status is stable. - Will contact [facility] urology to determine plan for nephrostomy tube. (4) Insulin-requiring or dependent type II diabetes mellitus: A1c was 8.6% in 06/2020. - Cont Lantus 20 units BID - Cont sliding scale insulin -> BS 100-200 today. (5) Acute respiratory failure with hypoxia: Unclear etiology; suspect COPD vs. mild volume overload from kidney issues. VQ scan 07/27/20 with low probability for PE. - Cont inhalers & O2 PRN (6) Hypertension: BP 145/75 today. - Continue home amlodipine, hydralazine, metoprolol (7) Smoker: - Counseled to quit - Nicoderm patch (8) Chronic pancreatitis: No present abdominal pain. - Continue Creon TID w/ meals (9) Hypothyroidism (acquired): Repeat TSH on 07/27 was 5.4. - Increased levothyroxine to 100mcg daily this admission from 88 mcg. - Repeat TSH in 6 weeks as outpatient. (10) Hyperlipidemia LDL goal <70: - Hold statin while on daptomycin (11) COPD (chronic obstructive pulmonary disease): Suspected. Long-standing tobacco usage & mild emphysema seen on CT chest on 07/25/2020. - Continue inhalers - Continue NC O2 PRN (12) DVT prophylaxis: Heparin 5000 units SQ BID Admission and Anticipated Discharge Date Admission Date: July 25, 2020 Subjective Feeling better today. No focal complaints. Reports no fevers/chills, chest pain, shortness of breath, abdominal pain, nausea, or vomiting. Physical Exam Constitutional: WD/WN, vitals as above Eyes: EOM intact bilaterally; no conjunctival abnormality ENMT: external ear and nose normal, oropharynx normal Neck: trachea midline, no thyromegaly normal visual inspection Respiratory: normal respiratory effort, lungs clear to auscultation no respiratory distress Cardiovascular: RRR, no murmur, no edema Gastrointestinal (Abdomen): Inspection/Auscultation: abdomen normal to inspection; abdomen not distended Musculoskeletal: no cyanosis or clubbing, extremities motor strength 5/5 Skin: no rashes, warm and dry Neurologic: moves all extremities and awake Psychiatric: Orientation: alert, oriented to person and cooperative Results & Data Results & Data ([facility]) Vital Signs (Past 12 Hours) Vital Signs Temp Pulse Pulse Resp BP Pulse Ox 07/30/20 11:52 36.8 C 61 18 145/77 H 94 07/30/20 03:00 37.3 C 61 20 124/71 92 07/30/20 01:22 60 PG Care Time/CCT Total # of Minutes Spent Total Time Spent with Patient: Total time spent is greater than 50% in coordination of care (as documented) at patient's floor/unit and/or counseling patient: Coding Level of Care Code 75964 Subs Hosp Care Lvl 3 Diagnoses Enterococcal septicemia A41.81 UTI (urinary tract infection) T83.512D; N39.0 Urinary tract infection type: catheter-associated UTI Indwelling urinary catheter type: nephrostomy catheter Encounter type: subsequent encounter Acute renal failure on dialysis N17.9; Z99.2 Insulin-requiring or dependent type II diabetes mellitus E11.9; Z79.4 Acute respiratory failure with hypoxia J96.01 Hypertension I10 Hypertension type: essential hypertension Smoker F17.200 Chronic pancreatitis K86.1 Pancreatitis type: unspecified pancreatitis type Hypothyroidism (acquired) E03.9 Hyperlipidemia LDL goal <70 E78.5 COPD (chronic obstructive pulmonary disease) J44.9 COPD type: unspecified COPD DVT prophylaxis Z29.9 (1) UTI (urinary tract infection) Urinary tract infection type: catheter-associated UTI Indwelling urinary catheter type: nephrostomy catheter Encounter type: subsequent encounter Qualified Code(s): T83.512D - Infection and inflammatory reaction due to nephrostomy catheter, subsequent encounter; N39.0 - Urinary tract infection, site not specified (2) Chronic pancreatitis Pancreatitis type: unspecified pancreatitis type Qualified Code(s): K86.1 - Other chronic pancreatitis (3) Hypertension Hypertension type: essential hypertension Qualified Code(s): I10 - Essential (primary) hypertension (4) COPD (chronic obstructive pulmonary disease) COPD type: unspecified COPD Qualified Code(s): J44.9 - Chronic obstructive p ulmonary disease, unspecified
[2020-07-30] MEDS: FLUTICASONE/VILANTEROL 100/25MCG 14 PUFFS/INHALER INH SCH (20:54)
[2020-07-31] MEDS: LEVOTHYROXINE SODIUM 100 MCG TABLET PO SCH (05:45)
[2020-07-31 07:41] LABS: Hematocrit (blood only) 31.6 % (42-52); Hemoglobin 9.7 g/dL (14.0-18.0); Mean Corpuscular Hemoglobin 29.8 pg (25-34); Mean Corpuscular Hgb Conc 30.7 g/dL (32-36); Mean Corpuscular Volume 96.9 fL (80-100); Mean Platelet Volume 9.2 fL (7.4-10.4); Nucleated RBC # (auto) 0.02 K/uL (0-0); Nucleated RBC % (auto) 0.1 %; Platelet Count 376 K/uL (130-400); RDW Standard Deviation 59.2 fL (36.4-46.3); Red Blood Count 3.26 M/uL (4.7-6.1); White Blood Count 11.62 K/uL (4.8-10.8)
[2020-07-31 07:58] LABS: BUN Creatinine Ratio 13.8 (10-20); Calcium 8.7 mg/dl (8.5-10.1); Creatinine Clr Calc Pharmacy 22.7 ml/min; Est GFR (African American) 18.6
[2020-07-31] MEDS: NICOTINE 14 MG/24 HR PATCH TD SCH (07:59)
[2020-07-31] MEDS: HEPARIN SOD 5,000 UNIT/0.5 ML VIAL SQ SCH ×2 (07:59→21:37)
[2020-07-31] MEDS: METOPROLOL TARTRATE 25 MG TAB PO SCH ×2 (08:14→21:51)
[2020-07-31] MEDS: CEROVITE ADV FORMULA TAB PO SCH (08:14)
[2020-07-31] MEDS: amLODIPine BESYLATE 5 MG TAB PO SCH (08:14)
[2020-07-31] MEDS: CIPROFLOXACIN 500 MG TAB PO SCH (08:14)
[2020-07-31] MEDS: DAPTOmycin 550 MG in SYRINGE 0 ML IV SCH (08:15)
[2020-07-31] MEDS: MAGNESIUM OXIDE 400 MG TAB PO SCH (08:15)
[2020-07-31] MEDS: GABAPENTIN 300 MG CAP PO SCH (08:15)
[2020-07-31] MEDS: hydrALAZINE 10 MG TAB PO SCH ×2 (08:15→21:51)
[2020-07-31] MEDS: ASPIRIN 81 MG ECTAB PO SCH (08:15)
[2020-07-31] MEDS: PANCREAZE (LIPASE 10,500U) CAP PO SCH ×3 (08:15→17:28)
[2020-07-31] MEDS: INSULIN ASPART 100 UNITS/ML 3 ML PEN SC SCH ×4 (08:15→21:37)
[2020-07-31] MEDS: INSULIN GLARGINE SOLOSTAR 100 UNITS/ML 3 ML PEN SC SCH ×2 (08:16→21:39)
--- NOTE | 2020-07-31 10:26 | Urology Consultation ---
Date of Consultation July 31, 2020 Assessment & Plan (1) Acute renal failure on dialysis: Patient on dialysis for end-stage renal disease with acute exacerbation of issues due to sepsis and ill feelings. Patient had considerable obstruction issues which was unable to be stented and had to be sent for nephrostomy tube. Currently has nephrostomy tube in place and a ureteral stent. This was placed in the antegrade fashion. At an outlying facility. Patient has been tolerating both. Continue to have I output from the nephrostomy tube. Continues to create urine. Patient is on now long-term dialysis for management of his end-stage renal disease. Patient has been slowly improving. Has not had considerable problems or issues. Has been slowly improving overall from acute infection. Discussed different concerns and issues. Currently tolerating without major problems or concerns. The nephrostomy tube was clamped/cut off yesterday to see if considerable issues develop. We will need to check likely KUB and ultrasound later today to assess for obstruction or other issues. May consider removal of nephrostomy tube. However at this point is a decent option to maintain tube with plans to utilize if obstruction issues do develop. Can always be removed at a later time. We will await imaging and further assess. Patient probably medical and surgical history was reviewed and summarized above all imaging was reviewed interpreted by myself History of Present Illness Attending Physician: Jarett Conner MD History of Present Illness Consult for urinary issues with acute on chronic renal failure on dialysis with obstructive issues requiring nephrostomy tube placement outlying facility. Patient had a antegrade stent placed as well. Since then has been tolerating both drainage. Has continual high output from the nephrostomy tube. There was some discussion of removing the nephrostomy tube yesterday with the outlying facility who had placed it but due to acute hospitalization it has been maintained. Patient does have some issues with incomplete emptying and possible retention. Patient has mild to moderate discomfort in pelvis and groin going to back and side in waves. Is dealing with acute illness. Has been deconditioned from this. Has decreased mobility significantly with acute issues. Is admitted with acute illness and UTI with septicemia undergoing supportive care and broad-spectrum antibiotics. Patient has not had complete return to normal bowel function. Has had some minor urinary issues in the past. Denies bleeding. No severe nausea or vomiting. Currently no fevers. Allergies Allergy/AdvReac Type Severity Reaction Status Date / Time ASPIRIN (IN DOSES LARGER AdvReac Intermediate N/V Uncoded 07/25/20 15:05 THAN 81MG) Home Medications Home Medications Medication Instructions Recorded Confirmed Type Creon 1 cap PO TIDM #0 05/22/15 07/25/20 History aspirin 81 mg PO QAM #0 05/22/15 07/25/20 History gabapentin 300 mg PO BID #0 05/22/15 07/25/20 History grape seed extract 100 mg PO QPM #0 05/22/15 07/25/20 History levothyroxine 88 mcg PO QAM #0 05/22/15 07/25/20 History multivitamin with minerals [Men's 1 tab PO DAILY #0 05/22/15 07/25/20 History One Daily] Lantus Solostar U-100 Insulin 0 unit SUBCUT HS #0 pen 05/05/18 06/22/20 History atorvastatin [Lipitor] 40 mg PO QAM #0 tab 05/05/18 07/25/20 History magnesium oxide 500 mg PO QAM #0 05/05/18 07/25/20 History metoprolol tartrate 25 mg PO BID 12/29/19 07/25/20 History amlodipine 5 mg PO QAM 06/22/20 07/25/20 History hydralazine 10 mg PO BID 06/22/20 07/25/20 History albuterol sulfate [Ventolin HFA] 2 puff INHALATION QID PRN 07/25/20 07/25/20 History budesonide-formoterol [Symbicort] 2 inh INHALATION HS PRN 07/25/20 07/25/20 History insulin asp prt-insulin aspart 0 unit SUBCUT UD 07/25/20 07/25/20 History [Novolog Mix 70-30FlexPen U-100] oxycodone-acetaminophen [Percocet] 1 tab PO Q4H PRN 07/25/20 07/25/20 History Patient History Medical History Acute renal failure on dialysis Agent [place] poisoning Chronic kidney disease, stage III (moderate) Chronic pancreatitis Elevated troponin GERD (gastroesophageal reflux disease) History of pacemaker Hyperlipidemia LDL goal <70 Hypertension Hypothyroidism (acquired) Insulin-requiring or dependent type II diabetes mellitus Morbid obesity Pancreatic insufficiency Peripheral neuropathy Smoker Surgical History History of permanent cardiac pacemaker placement Family History Other Family history non-contributory Social History Smoking Status: Current every day smoker Tobacco Type: Cigarettes Cigarettes Per Day: 15; Second Hand Exposure: No; Hx Alcohol Use: No Hx Substance Use: No Preferred Language: Upper Sorbian Communication Ability: Effective Communication Ability Comment: at times confused [employer] [place] [employer] Required: No Beliefs That Will Affect Care: None marital status: Current Living Situation: Spouse Other Information That Helps Us Care for You: No Feels Safe at Home: Yes Safety Concerns: Feels Safe At This Time Assistive Devices: Oxygen - Continuous and Walker Review of Systems Review of Systems: All systems reviewed & are unremarkable except as noted in HPI & below Physical Exam Physical Exam: General: Alert and oriented x 3 in no acute distress. Patient is well nourished and well kept. HEENT: Normocephalic Atraumatic. Inspection normal. Cranial Nerves 2-12 Grossly intact. Nares are clear. Neck is supple. Normal inspection of face. Normal inspection of neck. Neurologic: No deficits on inspection. Baseline for motor function and sensory. Psychologic: Normal affect. Respiratory: Nonlabored. No use of accessory muscles. No tachypnea or dyspnea. Cardiovascular: No tachycardia Skin: [place] and Dry. No rashes or visible lesions. Extremities: Moving without issues. No motor deficits on inspection. Fistula on right arm. Lymphatics: No edema Abdomen: Soft Non-distended. No acites. No rebound or guarding. Nephrostomy tube in place and flank clamped Results & Data ([facility]) Vital Signs (Past 12 Hours) Vital Signs Temp Pulse Pulse Resp BP Pulse Ox 07/31/20 08:00 36.9 C 60 18 128/70 93 07/31/20 04:00 36.8 C 60 20 127/68 94 07/30/20 23:08 60 07/30/20 22:27 37.1 C 61 20 122/72 95 PG Care Time/CCT Total # of Minutes Spent Total Time Spent with Patient: Total time spent is greater than 50% in coordination of care (as documented) at patient's floor/unit and/or counseling patient: Coding Level of Care Code 60576 Inpt Consult Level 5 Diagnoses Acute renal failure on dialysis N17.9; Z99.2
--- NOTE | 2020-07-31 11:10 | Nephrology Progress Note ---
Date of Service July 31, 2020 Assessment & Plan (1) Acute renal failure on dialysis: * ATN due to obstructive uropathy s/p R percutaneous nephrostomy. Patient did require MAT REPAIRER but now has evidence of renal recovery (last dialysis treatment 07/23 at [facility]) * Cr remains stable at 3.5. Volume status and electrolyte balance are acceptable. Patient is nonoliguric. No acute indication for HD today * AVG can be used for HD if needed * R femoral TDC removed 07/29/20 * Urology to see patient today and possibly remove R percutaneous nephrostomy tube as he now has an internal ureteral stent and is voiding normally (2) Chronic kidney disease, stage III (moderate): * Baseline creatinine 2.0 mg/dL prior to starting HD for JIMMY (3) Gram positive septicemia: * Blood cultures x 2 positive for Enterococcus faecalis on 07/25 and 1/2 positive on 07/26. Cultures 07/27 NGTD * US of AVG did not show any fluid collection or abscess * TTE no vegetation. Patient is scheduled for a ALONDRA * Currently on IV Daptomycin (4) Pyelonephritis: * Culture + VRE * PCN to be removed today * On IV Daptomycin. Consider stopping oral Cipro Admission and Anticipated Discharge Date Admission Date: July 25, 2020 Subjective Mr. Morales was seen & examined in his hospital room this morning. He denied fever or flank discomfort. He reports that a R ureteral stent was placed when he was at [facility] and he is now voiding normally Review of Systems Constitutional: no fever Eyes: no problem reported Ear, Nose, Mouth, Throat: no problem reported Respiratory: no dyspnea Cardiovascular: no chest pain and no edema Gastrointestinal: no abdominal pain and no diarrhea/loose stools Genitourinary: no hematuria Musculoskeletal: no back pain Integumentary: no rash Neurologic: no dizziness Physical Exam Constitutional: not in distress Eyes: PERRL, conjunctivae normal, anicteric sclerae ENMT: external ear and nose normal, oropharynx normal Neck: trachea midline, no thyromegaly Respiratory: normal respiratory effort, lungs clear to auscultation Cardiovascular: RRR, no murmur, no edema Gastrointestinal (Abdomen): normal bowel sounds, soft, nontender, no hepatosplenomegaly Musculoskeletal: Extremities: no cyanosis Skin: no rashes, warm and dry Neurologic: awake; not confused Results & Data ([facility]) Vital Signs (Past 12 Hours) Vital Signs Temp Pulse Pulse Resp BP Pulse Ox 07/31/20 08:00 36.9 C 60 18 128/70 93 07/31/20 04:00 36.8 C 60 20 127/68 94 07/30/20 23:08 60 Laboratory Results Laboratory Tests 07/31/20 07/31/20 07:04 07:04 WBC 11.62 H Hgb 9.7 L Hct 31.6 L Plt Count 376 Sodium 140 Potassium 4.0 Chloride 104 Carbon Dioxide 26 BUN 50 H Creatinine 3.58 H Glucose 181 H PG Care Time/CCT Total # of Minutes Spent Total Time Spent with Patient: Total time spent is greater than 50% in coordination of care (as documented) at patient's floor/unit and/or counseling patient: Coding Level of Care Code 90838 Subseq Hosp Care Lvl 3 Diagnoses Acute renal failure on dialysis N17.9; Z99.2 Chronic kidney disease, stage III (moderate) N18.3 Gram positive septicemia A41.89 Pyelonephritis N12
--- NOTE | 2020-07-31 12:35 | Hospitalist Progress Note ---
Date of Service July 31, 2020 Assessment & Plan (1) Enterococcal septicemia: Blood cultures grew Enterococcus faecalis on 07/25, 07/26, and 07/27; sensitive to ampicillin, daptomycin, vanco. - ALONDRA on 07/26 without valvular vegetations but study was limited. - Source presumed to be right femoral permcath which was removed on 07/[address] Conde; unfortunately tip of catheter not sent for culture. 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 - Femoral catheters carry great risk of infection (>15%), and thus this is likely source. - Vanc changed to daptomycin on 07/29. - Repeat blood cultures on 07/29 still negative. - [facility] ID consulted - Discussed on 07/30. Will use ampicillin as first-line agent. Can go with 2 weeks from first negative culture. Does need ALONDRA per ID. (2) UTI (urinary tract infection): Catheter-associated / complicated. Urine cx from 07/25 grew Pseudomonas fluoresc/putida (sensitive to Cipro) & VRE sensitive only to daptomycin. - Continue PO Cipro for pseudomonas - Changed vanc to daptomycin to cover VRE on 07/29 - ID consultation as above - Will retest urine and adjust duration. (3) Acute renal failure on dialysis: Developed acute kidney injury in 06/2020 while at [facility]. Suspected to be combination of pre-renal injury and obstructive. - Transferred to [facility] for right-sided ureteral stent placement and right-sided nephrostomy tube placement as imaging in June showed hydronephrosis with UVJ obstruction. - Despite placement of the above tubes it sounds as if his renal function continued to worsen and HD was initiated. - By history, he had a tunneled right IJ HD catheter that malfunctioned and was removed. Ultimately had right femoral HD catheter placed -- this was removed on 07/30. - He also underwent RUE AV graft creation on 07/21/2020. - Surgeons in [place] prefer that 2 weeks pass since AV graft surgery before using it for HD purposes. - Nephrology following: patient's urine output remains adequate, K level is stable, and volume status is stable. - Urology followed. Will get KUB and ultrasound to check for obstruction, then possibly pull later. (4) Insulin-requiring or dependent type II diabetes mellitus: A1c was 8.6% in 06/2020. - Cont Lantus 20 units BID - Cont sliding scale insulin -> BS 100-200 today. Acceptable range. (5) Acute respiratory failure with hypoxia: Unclear etiology; suspect COPD vs. mild volume overload from kidney issues. VQ scan 07/27/20 with low probability for PE. - Cont inhalers & O2 PRN (6) Hypertension: BP 115/70 today. - Continue home amlodipine, hydralazine, metoprolol (7) Smoker: - Counseled to quit - Nicoderm patch (8) Chronic pancreatitis: No present abdominal pain. - Continue Creon TID w/ meals (9) Hypothyroidism (acquired): Repeat TSH on 07/27 was 5.4. - Increased levothyroxine to 100mcg daily this admission from 88 mcg. - Repeat TSH in 6 weeks as outpatient. (10) Hyperlipidemia LDL goal <70: - Hold statin while on daptomycin (11) COPD (chronic obstructive pulmonary disease): Suspected. Long-standing tobacco usage & mild emphysema seen on CT chest on 07/25/2020. - Continue inhalers - Continue NC O2 PRN (12) DVT prophylaxis: Heparin 5000 units SQ BID Admission and Anticipated Discharge Date Admission Date: July 25, 2020 Subjective Doing well today. No major issues. No pain after the clamping the nephrostomy tube. Reports no fevers/chills, chest pain, shortness of breath, abdominal pain, nausea, or vomiting. Physical Exam Constitutional: WD/WN, vitals as above Eyes: EOM intact bilaterally; no conjunctival abnormality ENMT: external ear and nose normal, oropharynx normal Neck: trachea midline, no thyromegaly normal visual inspection Respiratory: normal respiratory effort, lungs clear to auscultation no respiratory distress Cardiovascular: RRR, no murmur, no edema Gastrointestinal (Abdomen): Inspection/Auscultation: abdomen normal to inspection; abdomen not distended Musculoskeletal: no cyanosis or clubbing, extremities motor strength 5/5 Skin: no rashes, warm and dry Neurologic: moves all extremities and awake Psychiatric: Orientation: alert, oriented to person and cooperative Results & Data Results & Data ([facility]) Vital Signs (Past 12 Hours) Vital Signs Temp Pulse Resp BP Pulse Ox 07/31/20 11:12 37.0 C 59 L 20 111/68 94 07/31/20 08:00 36.9 C 60 18 128/70 93 07/31/20 04:00 36.8 C 60 20 127/68 94 PG Care Time/CCT Total # of Minutes Spent Total Time Spent with Patient: Total time spent is greater than 50% in coordination of care (as documented) at patient's floor/unit and/or counseling patient: Coding Level of Care Code 36624 Subseq Hosp Care Lvl 2 Diagnoses Enterococcal septicemia A41.81 UTI (urinary tract infection) T83.512D; N39.0 Urinary tract infection type: catheter-associated UTI Indwelling urinary catheter type: nephrostomy catheter Encounter type: subsequent encounter Acute renal failure on dialysis N17.9; Z99.2 Insulin-requiring or dependent type II diabetes mellitus E11.9; Z79.4 Acute respiratory failure with hypoxia J96.01 Hypertension I10 Hypertension type: essential hypertension Smoker F17.200 Chronic pancreatitis K86.1 Pancreatitis type: unspecified pancreatitis type Hypothyroidism (acquired) E03.9 Hyperlipidemia LDL goal <70 E78.5 COPD (chronic obstructive pulmonary disease) J44.9 COPD type: unspecified COPD DVT prophylaxis Z29.9 (1) UTI (urinary tract infection) Urinary tract infection type: catheter-associated UTI Indwelling urinary catheter type: nephrostomy catheter Encounter type: subsequent encounter Qualified Code(s): T83.512D - Infection and inflammatory reaction due to nephrostomy catheter, subsequent encounter; N39.0 - Urinary tract infection, site not specified (2) Hypertension Hypertension type: essential hypertension Qualified Code(s): I10 - Essential (primary) hypertension (3) Chronic pancreatitis Pancreatitis type: unspecified pancreatitis type Qualified Code(s): K86.1 - Other chronic pancreatitis (4) COPD (chronic obstructive pulmonary disease) COPD type: unspecified COPD Qualified Code(s): J44.9 - Chronic obstructive pulmonary disease, unspecified
[2020-07-31] MEDS: AMPICILLIN 2,000 MG in SODIUM CHLOR 0.9% AD-VAN 100 ML IV SCH ×2 (13:33→21:35)
--- NOTE | 2020-07-31 14:42 | XRay Report ---
KUB CLINICAL HISTORY: Right ureteral stent. COMPARISON STUDY: CT of the abdomen and pelvis July 25, 2020. FINDINGS: Right ureteral stent is appropriately positioned. A right percutaneous nephrostomy catheter is visualized. Note is made of a 2 mm calculus within the upper pole of the right kidney. No uretera l calculi are identified. Pelvic calcifications reflect phleboliths and vascular calcifications. Dorina l gas pattern is normal. Calcifications within the pancreas are better depicted on prior CT. Vascular coils project over the upper abdomen. IMPRESSION: 1. Right ureteral stent and percutaneous right nephrostomy catheter in place. 2. 2 mm right renal calculus. No ureteral calculi identified. ACT 112: Negative or not required by law. Electronically signed by: Christian Brito M.D. 07/31/2020 2:41 PM
[2020-07-31 15:58] LABS: Appearance Urine Turbid (Clear); Bacteria Urine Automated Negative (Negative); Bilirubin Urine Negative (Negative); Blood Urine 3+ (Negative); Color Urine Yellow; Glucose Urine UA Negative (Negative); Ketones Urine Negative (Negative); Leukocyte Esterase Urine 3+ (Negative); Nitrite Urine Negative (Negative); Protein Urine 2+ (Negative); Specific Gravity Urine 1.016 (1.000-1.030); Urobilinogen Urine Negative (Negative); WBC Urine Automated >30 /hpf (0-5)
[2020-07-31 16:05] LABS: RBC Urine Automated >30 /hpf (0-4)
[2020-07-31] MEDS: FLUTICASONE/VILANTEROL 100/25MCG 14 PUFFS/INHALER INH SCH (21:39)
[2020-07-31] MEDS: MELATONIN 3 MG TAB PO PRN (21:52)
[2020-08-01] MEDS: AMPICILLIN 2,000 MG in SODIUM CHLOR 0.9% AD-VAN 100 ML IV SCH ×3 (05:09→20:54)
[2020-08-01] MEDS: LEVOTHYROXINE SODIUM 100 MCG TABLET PO SCH (05:10)
[2020-08-01 06:27] LABS: Hematocrit (blood only) 31.5 % (42-52); Hemoglobin 9.6 g/dL (14.0-18.0); Mean Corpuscular Hemoglobin 29.6 pg (25-34); Mean Corpuscular Hgb Conc 30.5 g/dL (32-36); Mean Corpuscular Volume 97.2 fL (80-100); Mean Platelet Volume 9.2 fL (7.4-10.4); Platelet Count 380 K/uL (130-400); RDW Coefficient of Variation 17.2 % (11.5-14.5); RDW Standard Deviation 60.9 fL (36.4-46.3); Red Blood Count 3.24 M/uL (4.7-6.1); White Blood Count 11.88 K/uL (4.8-10.8)
[2020-08-01 07:00] LABS: BUN Creatinine Ratio 13.8 (10-20); Calcium 8.3 mg/dl (8.5-10.1); Est GFR (African American) 16.8; Est GFR (Non-African American) 14.5; Magnesium 2.4 mg/dl (1.8-2.4); Potassium 3.8 mmol/L (3.5-5.1)
--- NOTE | 2020-08-01 08:20 | Ultrasound Report ---
RENAL ULTRASOUND CLINICAL HISTORY: Right kidney for hydronephrosis - Limited u/s ok! COMPARISON STUDY: CT of the abdomen and pelvis July 25, 2020. KUB July 31, 2020. Renal ult rasound June 22, 2022 TECHNIQUE: Sonography of the kidneys and the urinary bladder was performed. FINDINGS: This exam was technically difficult. Left kidney was obscured on this exam by bowel gas. Th e right kidney measures 10.4 x 6 x 6 cm. Right ureteral stent is visualized. Right percutaneous nephr ostomy catheter is not well visualized by sonography but was shown on KUB. There is persistent mild r ight hydronephrosis. Persistent marked bladder wall thickening is noted. Distal aspect of right urete ral stent is within the bladder. IMPRESSION: 1. Persistent mild right hydronephrosis. Right ureteral stent in place. 2. Obscured left kidney. 3. Persistent nonspecific marked bladder wall thickening. This could be correlated with cystoscopy. ACT 112: Negative or not required by law. Electronically signed by: Christian Brito M.D. 08/01/2020 8:18 AM
[2020-08-01] MEDS: PANCREAZE (LIPASE 10,500U) CAP PO SCH ×3 (09:36→17:50)
[2020-08-01] MEDS: INSULIN ASPART 100 UNITS/ML 3 ML PEN SC SCH ×4 (09:36→20:57)
[2020-08-01] MEDS: HEPARIN SOD 5,000 UNIT/0.5 ML VIAL SQ SCH ×3 (09:37→21:00)
[2020-08-01] MEDS: NICOTINE 14 MG/24 HR PATCH TD SCH (09:37)
[2020-08-01] MEDS: ASPIRIN 81 MG ECTAB PO SCH (09:38)
[2020-08-01] MEDS: hydrALAZINE 10 MG TAB PO SCH ×2 (09:38→20:54)
[2020-08-01] MEDS: CIPROFLOXACIN 500 MG TAB PO SCH (09:38)
[2020-08-01] MEDS: CEROVITE ADV FORMULA TAB PO SCH (09:39)
[2020-08-01] MEDS: METOPROLOL TARTRATE 25 MG TAB PO SCH ×2 (09:39→20:56)
[2020-08-01] MEDS: GABAPENTIN 300 MG CAP PO SCH (09:39)
[2020-08-01] MEDS: MAGNESIUM OXIDE 400 MG TAB PO SCH (09:39)
[2020-08-01] MEDS: amLODIPine BESYLATE 5 MG TAB PO SCH (09:40)
--- NOTE | 2020-08-01 10:13 | Nephrology Progress Note ---
Date of Service August 01, 2020 Assessment & Plan (1) Acute renal failure on dialysis: * ATN due to obstructive uropathy s/p R percutaneous nephrostomy. Patient did require TRANSMISSION MECHANIC but now has evidence of renal recovery (last dialysis treatment 07/23 at [facility]) * Cr remains stable at ~3.5. Volume status and electrolyte balance are acceptable. Patient is nonoliguric. No acute indication for HD today * AVG can be used for HD if needed * R femoral TDC removed 07/29/20 * Urology has clamped the R percutaneous nephrostomy tube. Patient has an internal ureteral stent and is voiding normally * Await further Urology input as to whether percutaneous nephrostomy tube will be removed (2) Chronic kidney disease, stage III (moderate): * Baseline creatinine 2.0 mg/dL prior to starting HD for JIMMY (3) Gram positive septicemia: * Blood cultures were positive for Enterococcus faecalis * Femoral THC was removed 07/29/20 * US of AVG did not show any fluid collection or abscess * TTE no vegetation * Patient is scheduled for a ALONDRA * Remains on IV Daptomycin and Ampicillin (4) Pyelonephritis: * Culture + VRE * Await Urology input re: removal percutaneous nephrostomy tube Admission and Anticipated Discharge Date Admission Date: July 25, 2020 Subjective Mr. Morales was seen & examined in his hospital room this morning. He denied fever or flank discomfort. R percutaneous nephrostomy tube was clamped yesterday. Patient reports that he is voiding without complication Review of Systems Constitutional: no fever Eyes: no problem reported Ear, Nose, Mouth, Throat: no problem reported Respiratory: no dyspnea Cardiovascular: no chest pain and no edema Gastrointestinal: no abdominal pain and no diarrhea/loose stools Genitourinary: no hematuria Musculoskeletal: no back pain Integumentary: no rash Neurologic: no dizziness Physical Exam Constitutional: not in distress Eyes: PERRL, conjunctivae normal, anicteric sclerae ENMT: external ear and nose normal, oropharynx normal Neck: trachea midline, no thyromegaly Respiratory: normal respiratory effort, lungs clear to auscultation Cardiovascular: RRR, no murmur, no edema (R arm AVG + bruit. Incision with only mild erythema) Gastrointestinal (Abdomen): normal bowel sounds, soft, nontender, no hepatosplenomegaly Musculoskeletal: Extremities: no cyanosis Skin: no rashes, warm and dry (R nephrostomy tube clamped and covered w/ clean, dry dressing) Neurologic: awake; not confused Results & Data ([facility]) Vital Signs (Past 12 Hours) Vital Signs Temp Pulse Pulse Resp BP Pulse Ox 08/01/20 07:32 36.7 C 60 20 126/67 94 08/01/20 03:00 36.8 C 60 20 147/68 H 93 08/01/20 00:56 60 07/31/20 22:35 36.9 C 60 19 155/72 H 94 Laboratory Results Laboratory Tests 08/01/20 08/01/20 05:51 05:51 WBC 11.88 H Hgb 9.6 L Hct 31.5 L Plt Count 380 Sodium 142 Potassium 3.8 Chloride 107 Carbon Dioxide 29 BUN 54 H Creatinine 3.89 H D Glucose 77 PG Care Time/CCT Total # of Minutes Spent Total Time Spent with Patient: Total time spent is greater than 50% in coordination of care (as documented) at patient's floor/unit and/or counseling patient: Coding Level of Care Code 51579 Subseq Hosp Care Lvl 3 Diagnoses Acute renal failure on dialysis N17.9; Z99.2 Chronic kidney disease, stage III (moderate) N18.3 Gram positive septicemia A41.89 Pyelonephritis N12
[2020-08-01] MEDS: INSULIN GLARGINE SOLOSTAR 100 UNITS/ML 3 ML PEN SC SCH ×2 (10:26→20:55)
[2020-08-01] MEDS ORDERED: Nursing to Pharmacy Communication SCH (10:30)
--- NOTE | 2020-08-01 14:23 | Hospitalist Progress Note ---
Date of Service August 01, 2020 Assessment & Plan (1) Enterococcal septicemia: Blood cultures grew Enterococcus faecalis on 07/25, 07/26, and 07/27; sensitive to ampicillin, daptomycin, vanco. - ALONDRA on 07/26 without valvular vegetations but study was limited. - Source presumed to be right femoral permcath which was removed on 07/[address] Conde; unfortunately tip of catheter not sent for culture. 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 - Femoral catheters carry great risk of infection (>15%), and thus this is likely source. - Vanc changed to daptomycin on 07/29. - Repeat blood cultures on 07/29 still negative. - [facility] ID consulted - Discussed on 07/30. Will use ampicillin as first-line agent. Can go with 2 weeks from first negative culture. Does need ALONDRA per ID. (2) UTI (urinary tract infection): Catheter-associated / complicated. Urine cx from 07/25 grew Pseudomonas fluoresc/putida (sensitive to Cipro) & VRE sensitive only to daptomycin. - Continue PO Cipro for pseudomonas - Changed vanc to daptomycin to cover VRE on 07/29 - ID consultation as above - Will retest urine and adjust duration. (3) Acute renal failure on dialysis: Developed acute kidney injury in 06/2020 while at [facility]. Suspected to be combination of pre-renal injury and obstructive. - Transferred to [facility] for right-sided ureteral stent placement and right-sided nephrostomy tube placement as imaging in June showed hydronephrosis with UVJ obstruction. - Despite placement of the above tubes it sounds as if his renal function continued to worsen and HD was initiated. - By history, he had a tunneled right IJ HD catheter that malfunctioned and was removed. Ultimately had right femoral HD catheter placed -- this was removed on 07/30. - He also underwent RUE AV graft creation on 07/21/2020. - Surgeons in [place] prefer that 2 weeks pass since AV graft surgery before using it for HD purposes. - Nephrology following: patient's urine output remains adequate, K level is stable, and volume status is stable. - Urology followed. Renal ultrasound still shows mild hydronephrosis. Per urology on 08/01, will keep nephrostomy tube in for 1-2 more days, then consider pulling it if no pain or leakage around nephrostomy site. (4) Insulin-requiring or dependent type II diabetes mellitus: A1c was 8.6% in 06/2020. - Cont Lantus 20 units BID - Cont sliding scale insulin -> BS lower today because of being NPO. Lowered AM Lantus dose to 10 units, so hopefully he stays even if no other issues. (5) Acute respiratory failure with hypoxia: Unclear etiology; suspect COPD vs. mild volume overload from kidney issues. VQ scan 07/27/20 with low probability for PE. - Cont inhalers & O2 PRN (6) Hypertension: BP 115/70 today. - Continue home amlodipine, hydralazine, metoprolol (7) Smoker: - Counseled to quit - Nicoderm patch (8) Chronic pancreatitis: No present abdominal pain. - Continue Creon TID w/ meals (9) Hypothyroidism (acquired): Repeat TSH on 07/27 was 5.4. - Increased levothyroxine to 100mcg daily this admission from 88 mcg. - Repeat TSH in 6 weeks as outpatient. (10) Hyperlipidemia LDL goal <70: - Hold statin while on daptomycin (11) COPD (chronic obstructive pulmonary disease): Suspected. Long-standing tobacco usage & mild emphysema seen on CT chest on 07/25/2020. - Continue inhalers - Continue NC O2 PRN (12) DVT prophylaxis: Heparin 5000 units SQ BID Admission and Anticipated Discharge Date Admission Date: July 25, 2020 Subjective No major concerns today. Hoping to eat soon. Reports no fevers/chills, chest pain, shortness of breath, abdominal pain, nausea, or vomiting. Physical Exam Constitutional: WD/WN, vitals as above Eyes: EOM intact bilaterally; no conjunctival abnormality ENMT: external ear and nose normal, oropharynx normal Neck: trachea midline, no thyromegaly normal visual inspection Respiratory: normal respiratory effort, lungs clear to auscultation no respiratory distress Cardiovascular: RRR, no murmur, no edema Gastrointestinal (Abdomen): Inspection/Auscultation: abdomen normal to inspection; abdomen not distended Musculoskeletal: no cyanosis or clubbing, extremities motor strength 5/5 Skin: no rashes, warm and dry Neurologic: moves all extremities and awake Psychiatric: Orientation: alert, oriented to person and cooperative Results & Data Results & Data ([facility]) Vital Signs (Past 12 Hours) Vital Signs Temp Pulse Pulse Resp BP Pulse Ox 08/01/20 12:13 36.8 C 58 L 18 121/66 94 08/01/20 11:40 60 08/01/20 07:32 36.7 C 60 20 126/67 94 08/01/20 03:00 36.8 C 60 20 147/68 H 93 PG Care Time/CCT Total # of Minutes Spent Total Time Spent with Patient: Total time spent is greater than 50% in coordination of care (as documented) at patient's floor/unit and/or counseling patient: Coding Level of Care Code 99474 Subseq Hosp Care Lvl 2 Diagnoses Enterococcal septicemia A41.81 UTI (urinary tract infection) T83.512D; N39.0 Urinary tract infection type: catheter-associated UTI Indwelling urinary catheter type: nephrostomy catheter Encounter type: subsequent encounter Acute renal failure on dialysis N17.9; Z99.2 Insulin-requiring or dependent type II diabetes mellitus E11.9; Z79.4 Acute respiratory failure with hypoxia J96.01 Hypertension I10 Hypertension type: essential hypertension Smoker F17.200 Chronic pancreatitis K86.1 Pancreatitis type: unspecified pancreatitis type Hypothyroidism (acquired) E03.9 Hyperlipidemia LDL goal <70 E78.5 COPD (chronic obstructive pulmonary disease) J44.9 COPD type: unspecified COPD DVT prophylaxis Z29.9 (1) UTI (urinary tract infection) Urinary tract infection type: catheter-associated UTI Indwelling urinary catheter type: nephrostomy catheter Encounter type: subsequent encounter Qualified Code(s): T83.512D - Infection and inflammatory reaction due to nephrostomy catheter, subsequent encounter; N39.0 - Urinary tract infection, site not specified (2) Hypertension Hypertension type: essential hypertension Qualified Code(s): I10 - Essential (primary) hypertension (3) Chronic pancreatitis Pancreatitis type: unspecified pancreatitis type Qualified Code(s): K86.1 - Other chronic pancreatitis (4) COPD (chronic obstructive pulmonary disease) COPD type: unspecified COPD Qualified Code(s): J44.9 - Chronic obstructive pulmonary disease, unspecified
[2020-08-01] MEDS ORDERED: BENZOCAIN/TETRACA/BUTAM SPRAY 200 APPLN/20 GM SPRY EXT ONE (15:12)
[2020-08-01] MEDS ORDERED: fentaNYL citrate 100 MCG/2 ML VIAL ONE (15:14)
[2020-08-01] MEDS ORDERED: MIDAZOLAM HCL 1 MG/ML 2ML VIAL ONE (15:14)
--- NOTE | 2020-08-01 15:57 | Pre Anesthesia Assessment ---
Date of Service August 01, 2020 Pre Sedation Assessment Vital Signs Temp Pulse Pulse Resp BP Pulse Ox 08/01/20 15:17 60 17 144/57 H 96 08/01/20 12:13 36.8 C 58 L 18 121/66 94 08/01/20 11:40 60 08/01/20 07:32 36.7 C 60 20 126/67 94 08/01/20 03:00 36.8 C 60 20 147/68 H 93 08/01/20 00:56 60 07/31/20 22:35 36.9 C 60 19 155/72 H 94 07/31/20 21:30 60 145/76 H 07/31/20 18:57 37.5 C 59 L 18 116/68 94 Cardiovascular RRR, no murmur, no edema Respiratory normal respiratory effort, lungs clear to auscultation Pre-Sedation Airway Assessment Smoking Status: Current every day smoker Short, Thick Neck: No Thyromental Distance: > or= 3.5 Finger Breadths Oral Cavity: + Dentures Mallampati Class: III ASA: ASA3 NPO Status Date of Last Intake of Fluids: 07/31/20 Time of Last Intake of Fluids: 19:00 Date of Last Intake of Solid Food: 08/01/20 Time of Last Intake of Solid Foods: 08:00 Procedure Planning Contraindications for Sedation: none Current Medications Reviewed: Yes Notes The planned sedation has been discussed with the patient. Informed Consent was obtained. I have identified the patient, determined the appropriateness of sedation and have assessed the patient immediately prior to the procedure. All medicine(s) and interventions are by my order.
--- NOTE | 2020-08-01 16:27 | Post Operative Brief Note ---
Cardiology Brief Post Op Date of Surgery August 01, 2020 Pre & Post Diagnosis Operation Date: 08/01/20 15:10 <No data on this case meets the specified criteria> Procedure ALONDRA Prefitter Daryl Gill MD Manufacturing Operator none Estimated Blood Loss 0 Findings See Below ALONDRA done for bacteremia. Prelim findings: No visualized vegetation on valves or pacer wires. Formal review to follow. Anesthesia Type None Complications none Disposition Disposition: PCU (recovered in earthmoving labourer holding area)
--- NOTE | 2020-08-01 16:46 | Post Anesthesia Assessment ---
Date of Service August 01, 2020 Post Sedation Assessment Vital Signs Temp Pulse Pulse Resp BP Pulse Ox 08/01/20 16:38 60 16 129/58 L 90 08/01/20 16:33 60 16 126/55 L 90 08/01/20 16:26 60 16 123/56 L 90 08/01/20 16:22 63 16 129/60 97 08/01/20 16:17 63 12 118/59 L 98 08/01/20 16:12 63 12 126/57 L 97 08/01/20 16:10 64 12 137/58 L 96 08/01/20 16:07 63 12 152/63 H 96 08/01/20 15:17 60 17 144/57 H 96 08/01/20 12:13 36.8 C 58 L 18 121/66 94 08/01/20 11:40 60 08/01/20 07:32 36.7 C 60 20 126/67 94 08/01/20 03:00 36.8 C 60 20 147/68 H 93 08/01/20 00:56 60 07/31/20 22:35 36.9 C 60 19 155/72 H 94 07/31/20 21:30 60 145/76 H 07/31/20 18:57 37.5 C 59 L 18 116/68 94 Recovery Score Activity: Moves 4 extremities Respiration: Deep Breath/Cough Circulation: +/-20% PreAnes Value Consciousness: Fully Awake Oxygen Saturation: > 92% On Room Air Post Anesthesia Score: 10 Discharge Sedation Level of Care: Fast Track Phase II Post Sedation Plan On clinical assessment, the patient appears to have tolerated the sedation without complications. Patient is recovering as anticipated. Patient will continue to be monitored by nursing and may be discharged when sedation discharge criteria are met per below protocol. Upon Completions of procedure up to 15 minutes continue every 5 minute vital signs and the P.A.R. score; then discharge to a Phase I or Fast Track to Phase II per the following guidelines: * Discharge Patient to appropriate Phase II area if PAR is 8 or greater or return to pre- procedure baseline. The post - procedure orders will be as directed. * If PAR score is less than 8 or not return to pre-procedure baseline then patient will follow Phase I monitoring till PAR is reached for Phase II. The Phase I may be done in procedure room or may call to secure a Phase I area. * If naloxone or flumazenil are used for reversal, hold in Phase I for continued monitoring from when last reversal dose was given for a minimum of 60 minutes or longer pending the nurse and/or physician discretion of patient condition before discharge to Phase II. Please call the Sedation Physician to re-evaluate and complete post-note for discharge to Phase II area. Do NOT discharge from procedure sedation or Phase 1 until post- sedation evaluation note is complete by procedure /sedation MD Sedation Discharge Instructions to be given to the patient at discharge to home.
--- NOTE | 2020-08-01 17:11 | XCELERA ---
[id number]
[2020-08-01] MEDS: FLUTICASONE/VILANTEROL 100/25MCG 14 PUFFS/INHALER INH SCH (20:54)
[2020-08-02] MEDS: AMPICILLIN 2,000 MG in SODIUM CHLOR 0.9% AD-VAN 100 ML IV SCH ×3 (05:51→20:51)
[2020-08-02] MEDS: LEVOTHYROXINE SODIUM 100 MCG TABLET PO SCH (05:52)
[2020-08-02 07:54] LABS: Hematocrit (blood only) 31.8 % (42-52); Hemoglobin 9.7 g/dL (14.0-18.0); Mean Corpuscular Hemoglobin 29.8 pg (25-34); Mean Corpuscular Hgb Conc 30.5 g/dL (32-36); Mean Corpuscular Volume 97.5 fL (80-100); Mean Platelet Volume 9.1 fL (7.4-10.4); Platelet Count 374 K/uL (130-400); RDW Coefficient of Variation 17.2 % (11.5-14.5); RDW Standard Deviation 61.2 fL (36.4-46.3); Red Blood Count 3.26 M/uL (4.7-6.1); White Blood Count 10.54 K/uL (4.8-10.8)
--- NOTE | 2020-08-02 08:16 | Urology Progress Note ---
Date of Service August 02, 2020 Assessment & Plan (1) Acute renal failure: Ureteral stent appears to be sufficiently functioning voiding spontaneously has avoided dialysis for several days cr stable in the mid-3s nephrostomy clamping has not caused additional problems Plan: 1. keep neph clamped - consider d/c prior to d/c home presuming he continues to tolerate the clamping trial and functioning ok 2. will need a cysto and bladder biopsy (likely as outpt) - appearance of the bladder on ct and cysto highly concerning - needs more complete interrogation to determine the etiology 3. complete abx course We will follow peripherally as I do not see any acute interventions in the near future, but please call with questions. Admission and Anticipated Discharge Date Admission Date: July 25, 2020 Subjective subjectively reports he feels well thrilled to be voiding per urethra denies any change in pain or symptoms after nephrostomy tube was clamped ok UoP yesterday (1L) Review of Systems Review of Systems: All systems reviewed & are unremarkable except as noted in HPI & below Physical Exam Physical Exam: nephrostomy site ok, no infectious signs. capped Constitutional: well developed and well nourished Respiratory: no respiratory distress Cardiovascular: Extremities: no pedal edema Gastrointestinal (Abdomen): Inspection/Auscultation: abdomen normal to inspection Results & Data ([facility]) Vital Signs (Past 12 Hours) Vital Signs Temp Pulse Pulse Resp BP Pulse Ox 08/02/20 00:37 36.7 C 60 18 155/73 H 95 08/01/20 22:21 60 PG Care Time/CCT Total # of Minutes Spent Total Time Spent with Patient: Total time spent is greater than 50% in coordination of care (as documented) at patient's floor/unit and/or counseling patient: Coding Level of Care Code 21020 Subseq Hosp Care Lvl 2 Diagnoses Acute renal failure N17.9
[2020-08-02 08:22] LABS: BUN Creatinine Ratio 14.2 (10-20); Calcium 8.8 mg/dl (8.5-10.1); Creatinine Clr Calc Pharmacy 22.6 ml/min; Est GFR (African American) 18.4; Est GFR (Non-African American) 15.9; Magnesium 2.5 mg/dl (1.8-2.4); Potassium 4.2 mmol/L (3.5-5.1)
[2020-08-02] MEDS: INSULIN ASPART 100 UNITS/ML 3 ML PEN SC SCH ×4 (09:08→20:58)
[2020-08-02] MEDS: PANCREAZE (LIPASE 10,500U) CAP PO SCH ×3 (09:11→17:28)
[2020-08-02] MEDS: HEPARIN SOD 5,000 UNIT/0.5 ML VIAL SQ SCH ×2 (09:11→20:52)
[2020-08-02] MEDS: METOPROLOL TARTRATE 25 MG TAB PO SCH ×2 (09:12→20:57)
[2020-08-02] MEDS: hydrALAZINE 10 MG TAB PO SCH ×2 (09:12→20:57)
[2020-08-02] MEDS: amLODIPine BESYLATE 5 MG TAB PO SCH (09:13)
[2020-08-02] MEDS: MAGNESIUM OXIDE 400 MG TAB PO SCH (09:13)
[2020-08-02] MEDS: INSULIN GLARGINE SOLOSTAR 100 UNITS/ML 3 ML PEN SC SCH ×2 (09:13→20:58)
[2020-08-02] MEDS: NICOTINE 14 MG/24 HR PATCH TD SCH (09:13)
[2020-08-02] MEDS: CEROVITE ADV FORMULA TAB PO SCH (09:13)
[2020-08-02] MEDS: CIPROFLOXACIN 500 MG TAB PO SCH (09:14)
[2020-08-02] MEDS: GABAPENTIN 300 MG CAP PO SCH (09:14)
[2020-08-02] MEDS: ASPIRIN 81 MG ECTAB PO SCH (09:14)
[2020-08-02] MEDS: DAPTOmycin 550 MG in SYRINGE 0 ML IV SCH (09:18)
--- NOTE | 2020-08-02 11:20 | Nephrology Progress Note ---
Date of Service August 02, 2020 Assessment & Plan (1) Acute renal failure on dialysis: * ATN due to obstructive uropathy s/p R percutaneous nephrostomy. Patient did require MOHS SURGEON but now has evidence of renal recovery (last dialysis treatment 07/23 at [facility]) * Cr remains stable at ~3.5. Volume status and electrolyte balance are acceptable. Patient is nonoliguric. No acute indication for HD today * AVG can be used for HD if needed * R femoral TDC removed 07/29/20 * Urology has clamped the R percutaneous nephrostomy tube. Patient has an internal ureteral stent and is voiding normally * Patient can follow up in my office in 7 - 14 days after hospital discharge for ongoing monitoring of kidney function ([phone]). Please let me know when discharge is anticipated and I will place order in EMR to have blood work completed 48 hours prior to OV (2) Chronic kidney disease, stage III (moderate): * Baseline creatinine 2.0 mg/dL prior to starting HD for JIMMY (3) Gram positive septicemia: * Blood cultures were positive for Enterococcus faecalis * Femoral THC was removed 07/29/20 * US of AVG did not show any fluid collection or abscess * TTE no vegetation, 08/01/20 ALONDRA negative for vegetation * Remains on IV Daptomycin and Ampicillin (4) Pyelonephritis: * Culture + VRE * Percutaneous nephrostomy tube clamped in place, patient voiding normally Admission and Anticipated Discharge Date Admission Date: July 25, 2020 Subjective Mr. Morales was seen & examined in his hospital room this morning. He denied fever or flank discomfort. R percutaneous nephrostomy tube remains clamped. Patient reports that he is voiding without complication. Net 1 L UO overnight. Review of Systems Constitutional: no fever Eyes: no problem reported Ear, Nose, Mouth, Throat: no problem reported Respiratory: no dyspnea Cardiovascular: no chest pain and no edema Gastrointestinal: no abdominal pain and no diarrhea/loose stools Genitourinary: no hematuria Musculoskeletal: no back pain Integumentary: no rash Neurologic: no dizziness Physical Exam Constitutional: not in distress Eyes: PERRL, conjunctivae normal, anicteric sclerae ENMT: external ear and nose normal, oropharynx normal Neck: trachea midline, no thyromegaly Respiratory: normal respiratory effort, lungs clear to auscultation Cardiovascular: RRR, no murmur, no edema (R arm AVG + bruit. Incision with only mild erythema) Gastrointestinal (Abdomen): normal bowel sounds, soft, nontender, no hepatosplenomegaly Musculoskeletal: Extremities: no cyanosis Skin: no rashes, warm and dry (R nephrostomy tube clamped and covered w/ clean, dry dressing) Neurologic: awake; not confused Results & Data ([facility]) Vital Signs (Past 12 Hours) Vital Signs Temp Pulse Pulse Resp BP Pulse Ox 08/02/20 10:24 64 08/02/20 09:00 36.6 C 59 L 17 147/69 H 91 08/02/20 00:37 36.7 C 60 18 155/73 H 95 Laboratory Results Laboratory Tests 08/02/20 08/02/20 07:30 07:30 WBC 10.54 Hgb 9.7 L Hct 31.8 L Plt Count 374 Sodium 141 Potassium 4.2 Chloride 108 H Carbon Dioxide 26 BUN 51 H Creatinine 3.61 H PG Care Time/CCT Total # of Minutes Spent Total Time Spent with Patient: Total time spent is greater than 50% in coordination of care (as documented) at patient's floor/unit and/or counseling patient: Coding Level of Care Code 87552 Subseq Hosp Care Lvl 3 Diagnoses Acute renal failure on dialysis N17.9; Z99.2 Chronic kidney disease, stage III (moderate) N18.3 Gram positive septicemia A41.89 Pyelonephritis N12
[2020-08-02] MEDS: FLUTICASONE/VILANTEROL 100/25MCG 14 PUFFS/INHALER INH SCH (20:52)
--- NOTE | 2020-08-02 23:28 | Hospitalist Progress Note ---
Date of Service August 02, 2020 Assessment & Plan (1) Enterococcal septicemia: Blood cultures grew Enterococcus faecalis on 07/25, 07/26, and 07/27; sensitive to ampicillin, daptomycin, vanco. - ALONDRA on 07/26 without valvular vegetations but study was limited. - Source presumed to be right femoral permcath which was removed on 07/[address] Conde; unfortunately tip of catheter not sent for culture. 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 - Femoral catheters carry great risk of infection (>15%), and thus this is likely source. - Vanc changed to daptomycin on 07/29. - Repeat blood cultures on 07/29 still negative. - [facility] ID consulted - Discussed on 07/30. Will use ampicillin as first-line agent. Can go with 2 weeks from first negative culture. ALONDRA complete. (2) UTI (urinary tract infection): Catheter-associated / complicated. Urine cx from 07/25 grew Pseudomonas fluoresc/putida (sensitive to Cipro) & VRE sensitive only to daptomycin. - Continue PO Cipro for pseudomonas - Changed vanc to daptomycin to cover VRE on 07/29 - ID consultation as above - Will retest urine and adjust duration. (3) Acute renal failure on dialysis: Developed acute kidney injury in 06/2020 while at [facility]. Suspected to be combination of pre-renal injury and obstructive. - Transferred to [facility] for right-sided ureteral stent placement and right-sided nephrostomy tube placement as imaging in June showed hydronephrosis with UVJ obstruction. - Despite placement of the above tubes it sounds as if his renal function robin nued to worsen and HD was initiated. - By history, he had a tunneled right IJ HD catheter that malfunctioned and was removed. Ultimately had right femoral HD catheter placed -- this was removed on 07/30. - He also underwent RUE AV graft creation on 07/21/2020. - Surgeons in [place] prefer that 2 weeks pass since AV graft surgery before using it for HD purposes. - Nephrology following: patient's urine output remains adequate, K level is stable, and volume status is stable. - Urology followed. Renal ultrasound still shows mild hydronephrosis. Per urology on 08/01, will keep nephrostomy tube in for 1-2 more days, then consider pulling it if no pain or leakage around nephrostomy site. (4) Insulin-requiring or dependent type II diabetes mellitus: A1c was 8.6% in 06/2020. - Cont Lantus 20 units BID - Cont sliding scale insulin -> BS lower today because of being NPO. Lowered AM Lantus dose to 10 units, so hopefully he stays even if no other issues. (5) Acute respiratory failure with hypoxia: Unclear etiology; suspect COPD vs. mild volume overload from kidney issues. VQ scan 07/27/20 with low probability for PE. - Cont inhalers & O2 PRN (6) Hypertension: BP 115/70 today. - Continue home amlodipine, hydralazine, metoprolol (7) Smoker: - Counseled to quit - Nicoderm patch (8) Chronic pancreatitis: No present abdominal pain. - Continue Creon TID w/ meals (9) Hypothyroidism (acquired): Repeat TSH on 07/27 was 5.4. - Increased levothyroxine to 100mcg daily this admission from 88 mcg. - Repeat TSH in 6 weeks as outpatient. (10) Hyperlipidemia LDL goal <70: - Hold statin while on daptomycin (11) COPD (chronic obstructive pulmonary disease): Suspected. Long-standing tobacco usage & mild emphysema seen on CT chest on 07/25/2020. - Continue inhalers - Continue NC O2 PRN (12) DVT prophylaxis: Heparin 5000 units SQ BID Admission and Anticipated Discharge Date Admission Date: July 25, 2020 Subjective 74 yo male reports having no new symptoms today. Review of Systems Review of Systems: All systems reviewed & are unremarkable except as noted in HPI & below Physical Exam Physical Exam: Constitutional: WD/WN, vitals as above Eyes: EOM intact bilaterally; no conjunctival abnormality ENMT: external ear and nose normal, oropharynx normal Neck: trachea midline, no thyromegaly normal visual inspection Respiratory: normal respiratory effort, lungs clear to auscultation no respiratory distress Cardiovascular: RRR, no murmur, no edema Gastrointestinal (Abdomen): Inspection/Auscultation: abdomen normal to inspection; abdomen not distended Musculoskeletal: no cyanosis or clubbing, extremities motor strength 5/5 Skin: no rashes, warm and dry Neurologic: moves all extremities and awake Psychiatric: Orientation: alert, oriented to person and cooperative Results & Data Results & Data ([facility]) Vital Signs (Past 12 Hours) Vital Signs Temp Pulse Pulse Resp BP Pulse Ox 08/02/20 20:57 62 153/78 H 08/02/20 19:18 36.9 C 60 17 133/72 94 08/02/20 15:00 70 08/02/20 11:52 36.8 C 60 17 150/73 H 94 PG Care Time/CCT Total # of Minutes Spent Total Time Spent with Patient: Total time spent is greater than 50% in coordination of care (as documented) at patient's floor/unit and/or counseling patient: Coding Level of Care Code 35241 Subseq Hosp Care Lvl 3 Diagnoses Enterococcal septicemia A41.81 UTI (urinary tract infection) T83.512D; N39.0 Encounter type: subsequent encounter Indwelling urinary catheter type: nephrostomy catheter Urinary tract infection type: catheter-associated UTI Acute renal failure on dialysis N17.9; Z99.2 Insulin-requiring or dependent type II diabetes mellitus E11.9; Z79.4 Acute respiratory failure with hypoxia J96.01 Hypertension I10 Hypertension type: essential hypertension Smoker F17.200 Chronic pancreatitis K86.1 Pancreatitis type: unspecified pancreatitis type Hypothyroidism (acquired) E03.9 Hyperlipidemia LDL goal <70 E78.5 COPD (chronic obstructive pulmonary disease) J44.9 COPD type: unspecified COPD DVT prophylaxis Z29.9 Time Spent (min) 35 (1) UTI (urinary tract infection) Encounter type: subsequent encounter Indwelling urinary catheter type: nep hrostomy catheter Urinary tract infection type: catheter-associated UTI Qualified Code(s): T83.512D - Infection and inflammatory reaction due to nephrostomy catheter, subsequent encounter; N39.0 - Urinary tract infection, site not specified (2) Chronic pancreatitis Pancreatitis type: unspecified pancreatitis type Qualified Code(s): K86.1 - Other chronic pancreatitis (3) COPD (chronic obstructive pulmonary disease) COPD type: unspecified COPD Qualified Code(s): J44.9 - Chronic obstructive pulmonary disease, unspecified (4) Hypertension Hypertension type: essential hypertension Qualified Code(s): I10 - Essential (primary) hypertension
[2020-08-03] MEDS: AMPICILLIN 2,000 MG in SODIUM CHLOR 0.9% AD-VAN 100 ML IV SCH ×3 (05:00→20:24)
[2020-08-03] MEDS: LEVOTHYROXINE SODIUM 100 MCG TABLET PO SCH (06:43)
[2020-08-03] MEDS: NICOTINE 14 MG/24 HR PATCH TD SCH (09:33)
[2020-08-03] MEDS: PANCREAZE (LIPASE 10,500U) CAP PO SCH ×3 (09:33→17:21)
[2020-08-03] MEDS: METOPROLOL TARTRATE 25 MG TAB PO SCH ×2 (09:34→20:27)
[2020-08-03] MEDS: CEROVITE ADV FORMULA TAB PO SCH (09:36)
[2020-08-03] MEDS: INSULIN GLARGINE SOLOSTAR 100 UNITS/ML 3 ML PEN SC SCH ×2 (09:36→20:28)
[2020-08-03] MEDS: hydrALAZINE 10 MG TAB PO SCH ×2 (09:36→20:27)
[2020-08-03] MEDS: HEPARIN SOD 5,000 UNIT/0.5 ML VIAL SQ SCH ×2 (09:36→20:28)
[2020-08-03] MEDS: ASPIRIN 81 MG ECTAB PO SCH (09:36)
[2020-08-03] MEDS: MAGNESIUM OXIDE 400 MG TAB PO SCH (09:37)
[2020-08-03] MEDS: amLODIPine BESYLATE 5 MG TAB PO SCH (09:37)
[2020-08-03] MEDS: GABAPENTIN 300 MG CAP PO SCH (09:37)
[2020-08-03] MEDS: INSULIN ASPART 100 UNITS/ML 3 ML PEN SC SCH ×4 (09:38→20:28)
[2020-08-03] MEDS: CIPROFLOXACIN 500 MG TAB PO SCH (09:38)
--- NOTE | 2020-08-03 10:25 | XRay Report ---
XR chest 1V portable HISTORY: hypoxia COMPARISON: Chest 07/25/2020. FINDINGS: There is a left-sided dual-chamber pacemaker. No pneumothorax. The heart remains borderline enlarged. There is mild central pulmonary vascular congestion without overt edema. Linear density at the left lung base favor subsegmental atelectasis or scarring. Stable blunting of the left lateral c ostophrenic sulcus. This could represent scarring or a trace left pleural effusion. IMPRESSION: No significant change compared to the prior study. Stable mild cardiomegaly and mild central pulmonar y vascular congestion. ACT 112: Negative or not required by law. Electronically signed by: Joseph Boston M.D. 08/03/2020 10:24 AM
--- NOTE | 2020-08-03 10:35 | Nephrology Progress Note ---
Date of Service August 03, 2020 Assessment & Plan (1) Acute renal failure on dialysis: * ATN due to obstructive uropathy s/p R percutaneous nephrostomy. Patient did require POLL CLERK but now has evidence of renal recovery (last dialysis treatment 07/23 at [facility]) * Cr remains stable at ~3.5. Volume status and electrolyte balance are acceptable. Patient is nonoliguric. No acute indication for HD today * AVG can be used for HD if needed * R femoral TDC removed 07/29/20 * Urology has clamped the R percutaneous nephrostomy tube. Patient has an internal ureteral stent and is voiding normally * Patient can follow up in my office in 7 - 14 days after hospital discharge for ongoing monitoring of kidney function ([phone]). Please let me know when discharge is anticipated and I will place order in EMR to have blood work completed 48 hours prior to OV (2) Chronic kidney disease, stage III (moderate): * Baseline creatinine 2.0 mg/dL prior to starting HD for JIMMY (3) Gram positive septicemia: * Blood cultures were positive for Enterococcus faecalis * Femoral THC was removed 07/29/20 * US of AVG did not show any fluid collection or abscess * TTE no vegetation, 08/01/20 ALONDRA negative for vegetation * Remains on IV Daptomycin and Ampicillin * Patient reports that a PICC line and outpatient antibiotics are being arranged (4) Pyelonephritis: * Culture + VRE * Percutaneous nephrostomy tube clamped in place, patient voiding normally Admission and Anticipated Discharge Date Admission Date: July 25, 2020 Subjective Mr. Morales was seen & examined in his hospital room this morning. He denied fever or flank discomfort. R percutaneous nephrostomy tube remains clamped. Patient reports that he is voiding without complication. Net 750 cc UO overnight. Review of Systems Constitutional: no fever Eyes: no problem reported Ear, Nose, Mouth, Throat: no problem reported Respiratory: no dyspnea Cardiovascular: no chest pain and no edema Gastrointestinal: no abdominal pain and no diarrhea/loose stools Genitourinary: no hematuria Musculoskeletal: no back pain Integumentary: no rash Neurologic: no dizziness Physical Exam Constitutional: not in distress Eyes: PERRL, conjunctivae normal, anicteric sclerae ENMT: external ear and nose normal, oropharynx normal Neck: trachea midline, no thyromegaly Respiratory: normal respiratory effort, lungs clear to auscultation Cardiovascular: RRR, no murmur, no edema (R arm AVG + bruit. Incision with only mild erythema) Gastrointestinal (Abdomen): normal bowel sounds, soft, nontender, no hepatosplenomegaly Musculoskeletal: Extremities: no cyanosis Skin: no rashes, warm and dry (R nephrostomy tube clamped and covered w/ clean, dry dressing) Neurologic: awake; not confused Results & Data ([facility]) Vital Signs (Past 12 Hours) Vital Signs Temp Pulse Pulse Resp BP Pulse Ox 08/03/20 07:20 60 08/03/20 07:00 36.8 C 60 20 149/71 H 92 08/03/20 03:00 36.8 C 60 20 150/70 H 93 08/03/20 00:00 90 08/02/20 23:00 36.9 C 60 20 143/73 H 95 Laboratory Results Laboratory Tests 08/02/20 08/02/20 07:30 07:30 WBC 10.54 Hgb 9.7 L Hct 31.8 L Plt Count 374 Sodium 141 Potassium 4.2 Chloride 108 H Carbon Dioxide 26 BUN 51 H Creatinine 3.61 H Glucose 125 H PG Care Time/CCT Total # of Minutes Spent Total Time Spent with Patient: Total time spent is greater than 50% in coordination of care (as documented) at patient's floor/unit and/or counseling patient: Coding Level of Care Code 85256 Subseq Hosp Care Lvl 3 Diagnoses Acute renal failure on dialysis N17.9; Z99.2 Chronic kidney disease, stage III (moderate) N18.3 Gram positive septicemia A41.89 Pyelonephritis N12
[2020-08-03] MEDS: FLUTICASONE/VILANTEROL 100/25MCG 14 PUFFS/INHALER INH SCH (20:27)
--- NOTE | 2020-08-03 21:39 | Hospitalist Progress Note ---
Date of Service August 03, 2020 Assessment & Plan (1) Enterococcal septicemia: Blood cultures grew Enterococcus faecalis on 07/25, 07/26, and 07/27; sensitive to ampicillin, daptomycin, vanco. - ALONDRA on 07/26 without valvular vegetations but study was limited. - Source presumed to be right femoral permcath which was removed on 07/[address] Conde; unfortunately tip of catheter not sent for culture. 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 - Femoral catheters carry great risk of infection (>15%), and thus this is likely source. - Vanc changed to daptomycin on 07/29. - Repeat blood cultures on 07/29 still negative. - Adonisisinger ID consulted - Discussed on 07/30. Will use ampicillin as first-line agent. Can go with 2 weeks from first negative culture. ALONDRA complete. will need PICC line will discharge in AM. (2) UTI (urinary tract infection): Catheter-associated / complicated. Urine cx from 07/25 grew Pseudomonas fluoresc/putida (sensitive to Cipro) & VRE sensitive only to daptomycin. - Continue PO Cipro for pseudomonas - Changed vanc to daptomycin to cover VRE on 07/29 - ID consultation as above - Will retest urine and adjust duration. (3) Acute renal failure on dialysis: Developed acute kidney injury in 06/2020 while at [facility]. Suspected to be combination of pre-renal injury and obstructive. - Transferred to [facility] for right-sided ureteral stent placement and right-sided nephrostomy tube placement as imaging in June showed hydronephrosis with UVJ obstruction. - Despite placement of the above tubes it sounds as if his renal function continued to worsen and HD was initiated. - By history, he had a tunneled right IJ HD catheter that malfunctioned and was removed. Ultimately had right femoral HD catheter placed -- this was removed on 07/30. - He also underwent RUE AV graft creation on 07/21/2020. - Surgeons in [place] prefer that 2 weeks pass since AV graft surgery before using it for HD purposes. - Nephrology following: patient's urine output remains adequate, K level is stable, and volume status is stable. - Urology followed. Renal ultrasound still shows mild hydronephrosis. Per urology Will discharge on nephrostomy tubes. (4) Insulin-requiring or dependent type II diabetes mellitus: A1c was 8.6% in 06/2020. - Cont Lantus 20 units BID - Cont sliding scale insulin -> BS lower today because of being NPO. Lowered AM Lantus dose to 10 units, so hopefully he stays even if no other issues. (5) Acute respiratory failure with hypoxia: Unclear etiology; suspect COPD vs. mild volume overload from kidney issues. VQ scan 07/27/20 with low probability for PE. - Cont inhalers & O2 PRN (6) Hypertension: BP at goal. - Continue home amlodipine, hydralazine, metoprolol (7) Smoker: - Counseled to quit - Nicoderm patch (8) Chronic pancreatitis: No present abdominal pain. - Continue Creon TID w/ meals (9) Hypothyroidism (acquired): Repeat TSH on 07/27 was 5.4. - Increased levothyroxine to 100mcg daily this admission from 88 mcg. - Repeat TSH in 6 weeks as outpatient. (10) Hyperlipidemia LDL goal <70: - Hold statin while on daptomycin (11) COPD (chronic obstructive pulmonary disease): Suspected. Long-standing tobacco usage & mild emphysema seen on CT chest on 07/25/2020. - Continue inhalers - Continue NC O2 PRN (12) DVT prophylaxis: Heparin 5000 units SQ BID Admission and Anticipated Discharge Date Admission Date: July 25, 2020 Subjective 74 yo male reports no new symptoms. Review of Systems Review of Systems: All systems reviewed & are unremarkable except as noted in HPI & below Physical Exam Physical Exam: Constitutional: WD/WN, vitals as above Eyes: EOM intact bilaterally; no conjunctival abnormality ENMT: external ear and nose normal, oropharynx normal Neck: trachea midline, no thyromegaly normal visual inspection Respiratory: normal respiratory effort, lungs clear to auscultation no respiratory distress Cardiovascular: RRR, no murmur, no edema Gastrointestinal (Abdomen): Inspection/Auscultation: abdomen normal to inspection; abdomen not distended Musculoskeletal: no cyanosis or clubbing, extremities motor strength 5/5 Skin: no rashes, warm and dry Neurologic: moves all extremities and awake Psychiatric: Orientation: alert, oriented to person and cooperative Results & Data Results & Data ([facility]) Vital Signs (Past 12 Hours) Vital Signs Temp Pulse Pulse Resp BP Pulse Ox 08/03/20 20:26 61 132/74 08/03/20 19:03 36.7 C 60 18 127/61 95 08/03/20 15:15 36.6 C 59 L 18 146/68 H 95 08/03/20 15:00 60 08/03/20 11:33 36.6 C 60 18 137/74 95 PG Care Time/CCT Total # of Minutes Spent Total Time Spent with Patient: Total time spent is greater than 50% in coordination of care (as documented) at patient's floor/unit and/or counseling patient: Coding Level of Care Code 40337 Subseq Hosp Care Lvl 2 Diagnoses Enterococcal septicemia A41.81 UTI (urinary tract infection) T83.512D; N39.0 Encounter type: subsequent encounter Indwelling urinary catheter type: nephrostomy catheter Urinary tract infection type: catheter-associated UTI Acute renal failure on dialysis N17.9; Z99.2 Insulin-requiring or dependent type II diabetes mellitus E11.9; Z79.4 Acute respiratory failure with hypoxia J96.01 Hypertension I10 Hypertension type: essential hypertension Smoker F17.200 Chronic pancreatitis K86.1 Pancreatitis type: unspecified pancreatitis type Hypothyroidism (acquired) E03.9 Hyperlipidemia LDL goal <70 E78.5 COPD (chronic obstructive pulmonary disease) J44.9 COPD type: unspecified COPD DVT prophylaxis Z29.9 Time Spent (min) 25 (1) UTI (urinary tract infection) Encounter type: subsequent encounter Indwelling urinary catheter type: nephrostomy catheter Urinary tract infection type: catheter-associated UTI Qualified Code(s): T83.512D - Infection and inflammatory reaction due to nephrostomy catheter, subsequent encounter; N39.0 - Urinary tract infection, site not specified (2) Chronic pancreatitis Pancreatitis type: unspecified pancreatitis type Qualified Code(s): K86.1 - Other chronic pancreatitis (3) COPD (chronic obstructive pulmonary disease) COPD type: unspecified COPD Qualified Code(s): J44.9 - Chronic obstructive pulmonary disease, unspecified (4) Hypertension Hypertension type: essential hypertension Qualified Code(s): I10 - Essential (primary) hypertension
[2020-08-03] MEDS: oxyCODONE/ACETAMINOPHEN 5mg/325mg TAB PO PRN (22:45)
[2020-08-04] MEDS: AMPICILLIN 2,000 MG in SODIUM CHLOR 0.9% AD-VAN 100 ML IV SCH ×2 (05:30→13:15)
[2020-08-04] MEDS: LEVOTHYROXINE SODIUM 100 MCG TABLET PO SCH (05:30)
[2020-08-04 07:22] LABS: Creatinine Clr Calc Pharmacy 22.1 ml/min; Est GFR (African American) 18.1; Est GFR (Non-African American) 15.6
[2020-08-04] MEDS: PANCREAZE (LIPASE 10,500U) CAP PO SCH ×2 (07:58→12:25)
[2020-08-04] MEDS: hydrALAZINE 10 MG TAB PO SCH (07:59)
[2020-08-04] MEDS: INSULIN ASPART 100 UNITS/ML 3 ML PEN SC SCH ×2 (08:00→12:25)
[2020-08-04] MEDS: DAPTOmycin 550 MG in SYRINGE 0 ML IV SCH (08:10)
[2020-08-04] MEDS: MAGNESIUM OXIDE 400 MG TAB PO SCH (08:11)
[2020-08-04] MEDS: amLODIPine BESYLATE 5 MG TAB PO SCH (08:11)
[2020-08-04] MEDS: METOPROLOL TARTRATE 25 MG TAB PO SCH (08:11)
[2020-08-04] MEDS: ASPIRIN 81 MG ECTAB PO SCH (08:12)
[2020-08-04] MEDS: GABAPENTIN 300 MG CAP PO SCH (08:12)
[2020-08-04] MEDS: CIPROFLOXACIN 500 MG TAB PO SCH (08:12)
[2020-08-04] MEDS: CEROVITE ADV FORMULA TAB PO SCH (08:12)
[2020-08-04] MEDS: HEPARIN SOD 5,000 UNIT/0.5 ML VIAL SQ SCH (09:09)
[2020-08-04] MEDS: INSULIN GLARGINE SOLOSTAR 100 UNITS/ML 3 ML PEN SC SCH (09:10)
[2020-08-04] MEDS: NICOTINE 14 MG/24 HR PATCH TD SCH (09:11)
--- NOTE | 2020-08-04 10:51 | Nephrology Progress Note ---
Date of Service August 04, 2020 Assessment & Plan (1) Acute renal failure on dialysis: * ATN due to obstructive uropathy s/p R percutaneous nephrostomy. Patient did require ADVERTISING ANALYST but now has evidence of renal recovery (last dialysis treatment 07/23 at [facility]) * Cr remains stable at ~3.5. Volume status and electrolyte balance are acceptable. Patient is nonoliguric. No acute indication for HD today * AVG can be used for HD if needed * R femoral TDC removed 07/29/20 * Urology has clamped the R percutaneous nephrostomy tube. Patient has an internal ureteral stent and is voiding normally. Urology plans to remove nephrostomy tube as an outpatient * I have sent an order for my office staff to contact patient and schedule Nephrology follow up OV in 10 - 14 days. Orders were also placed in EMR for laboratory testing prior to OV (2) Chronic kidney disease, stage III (moderate): * Baseline creatinine 2.0 mg/dL prior to starting HD for JIMMY (3) Gram positive septicemia: * Blood cultures were positive for Enterococcus faecalis * Femoral THC was removed 07/29/20 * US of AVG did not show any fluid collection or abscess * TTE no vegetation, 08/01/20 ALONDRA negative for vegetation * Remains on IV Daptomycin and Ampicillin * Patient reports that a PICC line and outpatient antibiotics are being arranged (4) Pyelonephritis: * Culture + VRE * Percutaneous nephrostomy tube clamped in place, patient voiding normally Admission and Anticipated Discharge Date Admission Date: July 25, 2020 Subjective Mr. Morales was seen & examined in his hospital room this morning. He denied fever or flank discomfort. R percutaneous nephrostomy tube remains clamped. Patient reports that he is voiding without complication. Review of Systems Constitutional: no fever Eyes: no problem reported Ear, Nose, Mouth, Throat: no problem reported Respiratory: no dyspnea Cardiovascular: no chest pain and no edema Gastrointestinal: no abdominal pain and no diarrhea/loose stools Genitourinary: no dysuria, no urinary hesitancy and no hematuria Musculoskeletal: no back pain Integumentary: no rash Neurologic: no dizziness and no confusion Physical Exam Constitutional: not in distress Eyes: PERRL, conjunctivae normal, anicteric sclerae ENMT: external ear and nose normal, oropharynx normal Neck: trachea midline, no thyromegaly Respiratory: normal respiratory effort, lungs clear to auscultation Cardiovascular: RRR, no murmur, no edema (R arm AVG + bruit. Incision with only mild erythema) Gastrointestinal (Abdomen): normal bowel sounds, soft, nontender, no hepatosplenomegaly Musculoskeletal: Extremities: no cyanosis Skin: no rashes, warm and dry (R nephrostomy tube clamped and covered w/ clean, dry dressing) Neurologic: awake; not confused Results & Data ([facility]) Vital Signs (Past 12 Hours) Vital Signs Temp Pulse Pulse Pulse Pulse Pulse Resp 08/04/20 09:22 70 71 60 08/04/20 07:12 36.6 C 60 18 08/04/20 07:10 60 08/04/20 03:00 36.9 C 60 20 08/04/20 01:13 75 08/03/20 23:00 36.9 C 59 L 20 Resp Resp Resp BP Pulse Ox Pulse Ox Pulse Ox 08/04/20 09:22 22 22 20 95 94 08/04/20 07:12 123/71 96 08/04/20 07:10 08/04/20 03:00 138/71 94 08/04/20 01:13 08/03/20 23:00 124/71 96 Pulse Ox 08/04/20 09:22 93 08/04/20 07:12 08/04/20 07:10 08/04/20 03:00 08/04/20 01:13 08/03/20 23:00 PG Care Time/CCT Total # of Minutes Spent Total Time Spent with Patient: Total time spent is greater than 50% in coordin ation of care (as documented) at patient's floor/unit and/or counseling patient: Coding Level of Care Code 02762 Subseq Hosp Care Lvl 3 Diagnoses Acute renal failure on dialysis N17.9; Z99.2 Chronic kidney disease, stage III (moderate) N18.3 Gram positive septicemia A41.89 Pyelonephritis N12
--- NOTE | 2020-08-04 14:13 | Urology Progress Note ---
Date of Service August 04, 2020 Assessment & Plan (1) Pyelonephritis: Nephrostomy tube removed today, still has an indwelling right ureteral stent. He will follow-up as an outpatient for more definitive work-up as I feel he needs a bladder biopsy in the near future Stable for discharge home from a standpoint Admission and Anticipated Discharge Date Admission Date: July 25, 2020 Subjective Only major issue overnight was that the Dislodged from his nephrostomy tube and he began to leak some urine through an open nephrostomy tube. After recapping this it was a nonissue. Otherwise feels well and he remained stable from both a nephrological standpoint and a general standpoint Physical Exam Physical Exam: Nephrostomy tube examined, no evidence of infection Stitch anchoring this to the skin was incised suture holding the curl in place was released and the drain removed. There were no complications. A dressing was placed over top of the site. Constitutional: well developed and well nourished Neck: neck nontender Respiratory: normal respiratory effort; no respiratory distress and does not use accessory muscles Cardiovascular: Rate/Rhythm: regular rate Vessels: radial pulses present Extremities: no edema Gastrointestinal (Abdomen): Inspection/Auscultation: abdomen normal to inspection Percussion/Palpation: abdomen soft; abdomen nontender and no guarding Musculoskeletal: Head/Neck/Chest: normocephalic and head atraumatic Extremities: extremities normal to inspection Skin: no rashes and no lesions Trauma: no evidence of skin trauma Neurologic: awake; not obtunded Speech / Cognition: normal speech Motor/Sensory: no tremor Psychiatric: Orientation: alert and oriented x 3 Genitourinary: no CVA tenderness Lymphatic: no lymphadenopathy Results & Data ([facility]) Vital Signs (Past 12 Hours) Vital Signs Temp Pulse Pulse Pulse Pulse Pulse Resp 08/04/20 11:44 36.7 C 60 18 08/04/20 11:22 36.7 C 60 18 08/04/20 09:22 70 71 60 08/04/20 07:12 36.6 C 60 18 08/04/20 07:10 60 08/04/20 03:00 36.9 C 60 20 Resp Resp Resp BP Pulse Ox Pulse Ox Pulse Ox 08/04/20 11:44 147/58 H 93 08/04/20 11:22 147/58 H 93 10/01/20 09:22 22 22 20 95 94 10/01/20 07:12 123/71 96 08/04/20 07:10 08/04/20 03:00 138/71 94 Pulse Ox 08/04/20 11:44 08/04/20 11:22 08/04/20 09:22 93 08/04/20 07:12 08/04/20 07:10 08/04/20 03:00 PG Care Time/CCT Total # of Minutes Spent Total Time Spent with Patient: Total time spent is greater than 50% in coordination of care (as documented) at patient's floor/unit and/or counseling patient: Coding Level of Care Code 25973 Subseq Hosp Care Lvl 2 Diagnoses Pyelonephritis N12
--- NOTE | 2020-08-11 08:06 | Discharge Summary ---
Date of Service August 04, 2020 Principal Diagnosis Enterococcal septicemia Discharge Exam Constitutional: WD/WN, vitals as above Eyes: EOM intact bilaterally; no conjunctival abnormality ENMT: external ear and nose normal, oropharynx normal Neck: trachea midline, no thyromegaly normal visual inspection Respiratory: normal respiratory effort, lungs clear to auscultation no respiratory distress Cardiovascular: RRR, no murmur, no edema Gastrointestinal (Abdomen): Inspection/Auscultation: abdomen normal to inspection; abdomen not distended Musculoskeletal: no cyanosis or clubbing, extremities motor strength 5/5 Skin: no rashes, warm and dry Neurologic: moves all extremities and awake Psychiatric: Orientation: alert, oriented to person and cooperative Discharge Data Allergies Allergy/AdvReac Type Severity Reaction Status Date / Time ASPIRIN (IN DOSES LARGER AdvReac Intermediate N/V Uncoded 07/25/20 15:05 THAN 81MG) Consultations 07/25/20 14:01 ED Decision to Admit Stat 07/25/20 17:11 Consult Case Management - Discharge Planning Routine Consult Nephrology Routine 07/26/20 18:28 Consult Health Information Management Routine 07/29/20 08:43 Consult Infectious Diseases Routine 07/29/20 08:56 Consult Vascular Surgery Routine 07/31/20 07:10 Consult Urology Routine Procedures Performed Operation Date: 07/29/20 14:40 Actual Procedures p Femoral Perm Catheter Removal (Case Performed in Pre-Op) - Tyree Conde MD Operation Date: 08/01/20 15:10 Actual Procedures p Echo Transesophageal - Daryl Gill MD s Echo Doppler Complete - Daryl Gill MD s Echo Color Flow - Daryl Gill MD Ordered Studies 07/25/20 15:17 CT abd pelvis wo con Stat CT chest wo con Stat 07/26/20 18:27 US venous doppler LE RT Routine 07/27/20 10:30 US hemodialysis access Routine 07/31/20 12:38 US renal/blad retro comp Routine 08/03/20 10:14 US guide vascular access Urgent Hospital Course (1) Enterococcal septicemia: Blood cultures grew Enterococcus faecalis on 07/25, 07/26, and 07/27; sensitive to ampicillin, daptomycin, vanco. - ALONDRA on 07/26 without valvular vegetations but study was limited. - Source presumed to be right femoral permcath which was removed on 07/[address] Conde; unfortunately tip of catheter not sent for culture. 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 - Femoral catheters carry great risk of infection (>15%), and thus this is likely source. - Vanc changed to daptomycin on 07/29. - Repeat blood cultures on 07/29 still negative. - [facility] ID consulted - Discussed on 07/30. Will use ampicillin as first-line agent. Can go with 2 weeks from first negative culture. ALONDRA complete. ok with u/s guided peripheral line will discharge (2) UTI (urinary tract infection): Catheter-associated / complicated. Urine cx from 07/25 grew Pseudomonas fluoresc/putida (sensitive to Cipro) & VRE sensitive only to daptomycin. - Continue PO Cipro for pseudomonas - Changed vanc to daptomycin to cover VRE on 07/29 - ID consultation as above - Will retest urine and adjust duration. (3) Acute renal failure on dialysis: Developed acute kidney injury in 06/2020 while at [facility]. Suspected to be combination of pre-renal injury and obstructive. - Transferred to [facility] for right-sided ureteral stent placement and right-sided nephrostomy tube placement as imaging in June showed hydronephrosis with UVJ obstruction. - Despite placement of the above tubes it sounds as if his renal function continued to worsen and HD was initiated. - By history, he had a tunneled right IJ HD catheter that malfunctioned and was removed. Ultimately had right femoral HD catheter placed -- this was removed on 07/30. - He also underwent RUE AV graft creation on 07/21/2020. - Surgeons in [place] prefer that 2 weeks pass since AV graft surgery before using it for HD purposes. - Nephrology following: patient's urine output remains adequate, K level is stable, and volume status is stable. - Urology followed. Renal ultrasound still shows mild hydronephrosis. Per urology nephrostomy tubes removes, still has right ureteral stent (4) Insulin-requiring or dependent type II diabetes mellitus: A1c was 8.6% in 06/2020. - Cont Lantus 20 units BID - Cont sliding scale insulin -> BS lower today because of being NPO. Lowered AM Lantus dose to 10 units, so hopefully he stays even if no other issues. (5) Acute respiratory failure with hypoxia: Unclear etiology; suspect COPD vs. mild volume overload from kidney issues. VQ scan 07/27/20 with low probability for PE. - Cont inhalers & O2 PRN (6) Hypertension: BP at goal. - Continue home amlodipine, hydralazine, metoprolol (7) Smoker: - Counseled to quit - Nicoderm patch (8) Chronic pancreatitis: No present abdominal pain. - Continue Creon TID w/ meals (9) Hypothyroidism (acquired): Repeat TSH on 07/27 was 5.4. - Increased levothyroxine to 100mcg daily this admission from 88 mcg. - Repeat TSH in 6 weeks as outpatient. (10) Hyperlipidemia LDL goal <70: - Hold statin while on daptomycin (11) COPD (chronic obstructive pulmonary disease): Suspected. Long-standing tobacco usage & mild emphysema seen on CT chest on 07/25/2020. - Continue inhalers - Continue NC O2 PRN (12) DVT prophylaxis: Heparin 5000 units SQ BID Total Time Total Time Spent Total Time Spent (In Minutes): 32 Total Time Includes: Examination of the Patient, Discharge Planning and Medication Reconciliation Discharge Plan Discharge Items Patient Disposition: Home - Home Health Services Reason For Visit: ENCEPHALOPATHY Discharge Diagnosis: ESRD Activity: Resume your previous activity Non-emergency contact: Primary Care Provider Call non-emergency contact if: you have any medication questions Follow-up/Referrals: PCP,NO [Primary Care Provider] - (Please call your primary care and set up a follow up appointment for within a week to ten days.) Diet: Regular and Carb Consistent or DM2 Addtl Attending Provider Instructions: indwelling right ureteral stent. He will follow-up as an outpatient for more definitive work-up as I feel he needs a bladder biopsy in the near future Continue antibiotics for 10 more days. Pending Studies at Discharge: No Stand-Alone Forms: My [employer], Smoking Cessation Medications and DC Order Prescriptions: New ampicillin sodium 2 gram recon soln 2 g IV Q8H Qty: 30 RF: 0 Continued aspirin 81 mg Tablet,Delayed Release (Dr/Ec) 81 mg PO QAM Qty: 0 RF: 0 levothyroxine 88 mcg Tablet 88 mcg PO QAM Qty: 0 RF: 0 grape seed extract 50 mg Capsule 100 mg PO QPM Qty: 0 RF: 0 gabapentin 300 mg Capsule 300 mg PO BID Qty: 0 RF: 0 multivitamin with minerals [Men's One Daily] Tablet 1 tab PO DAILY Qty: 0 RF: 0 Creon 24,000-76,000 -120,000 unit Capsule,Delayed Release(Dr/Ec) 1 cap PO TIDM Qty: 0 RF: 0 magnesium oxide 500 mg Tablet 500 mg PO QAM Qty: 0 RF: 0 atorvastatin [Lipitor] 40 mg Tablet 40 mg PO QAM Qty: 0 RF: 0 Lantus Solostar U-100 Insulin 100 unit/mL (3 mL) Insulin Pen 0 unit SUBCUT HS Qty: 0 RF: 0 oxycodone-acetaminophen [Percocet] 5-325 mg Tablet 1 tab PO Q4H PRN (Reason: Pain) RF: 0 albuterol sulfate [Ventolin HFA] 90 mcg/actuation Hfa Aerosol Inhaler 2 puff INHALATION QID PRN (Reason: Shortness Of Breath) RF: 0 insulin asp prt-insulin aspart [Novolog Mix 70-30FlexPen U-100] 100 unit/mL (70-30) Insulin Pen 0 unit SUBCUT UD RF: 0 budesonide-formoterol [Symbicort] 160-4.5 mcg/actuation HFA aerosol inhaler 2 inh INHALATION HS PRN (Reason: Shortness Of Breath) RF: 0 metoprolol tartrate 25 mg Tablet 25 mg PO BID RF: 0 hydralazine 10 mg Tablet 10 mg PO BID RF: 0 amlodipine 10 mg Tablet 5 mg PO QAM RF: 0 Discharge Orders: Discharge Order (Routine); Ordered 08/04/20 Ordered By: Zeeshan Rivers Admission Data Admit Date/Time: 07/25/20 15:25 Attending Provider: Zeeshan Rivers Admit Provider: Farnaz Richardson Primary Care Provider: PCP,NO Other Providers: Dmitriy Kramer ; Omkar Perry ; Roberth Garcia ; Kayode Corral ; Vance Morales I. ; Tyler Cornelius II ; Lisa Leger ; Mir Singh ; Tyree Conde ; Jarett Conner ; Isaak Hoffmann Other Interventions: Discharge Summary Assessment (RN) Last Done: 08/04/20 11:44 Coding Level of Care Code D/C Day Management >30 mins Diagnoses Enterococcal septicemia A41.81 UTI (urinary tract infection) T83.512D; N39.0 Urinary tract infection type: catheter-associated UTI Indwelling urinary catheter type: nephrostomy catheter Encounter type: subsequent encounter Acute renal failure on dialysis N17.9; Z99.2 Insulin-requiring or dependent type II diabetes mellitus E11.9; Z79.4 Acute respiratory failure with hypoxia J96.01 Hypertension I10 Hypertension type: essential hypertension Smoker F17.200 Chronic pancreatitis K86.1 Pancreatitis type: unspecified pancreatitis type Hypothyroidism (acquired) E03.9 Hyperlipidemia LDL goal <70 E78.5 COPD (chronic obstructive pulmonary disease) J44.9 COPD type: unspecified COPD DVT prophylaxis Z29.9
== END 2020-08-04 16:19 | disposition home health service (06) | DRG 314 ==
LOC: ED 11:25 → SUATTDRO 15:25 → 2W 15:25

== ENCOUNTER 2020-08-25 08:18 | Inpatient (IN) ==
--- NOTE | 2020-08-25 08:26 | Emergency Department Note ---
History of Present Illness General Chief complaint: Shortness of Breath/Dyspnea Time Seen by Provider: 08/25/20 08:23 Source: patient, EMS, RN notes reviewed and old records reviewed Mode of arrival: EMS Limitations: no limitations History of Present Illness Provider complaint: SOB Onset (ago): day(s) 1 Relieved By: + immobilization and + rest Exacerbated By: + movement This is a 74-year-old male who presents emergency department complaining shortness of breath. Patient reports he became short of breath last evening. He reports any movement makes the shortness of breath worse however rest allows him to get better. The patient arrives in 6 L of oxygen placed by EMS. The patient was just admitted to [facility] with sepsis due to 3 organisms. Upon arrival to the emergency department the patient is belly breathing and is in distress. He was tested for short 2 weeks ago. Home Medications Home Medications Medication Instructions Recorded Confirmed Type Creon 1 cap PO TIDM #0 05/22/15 08/25/20 History gabapentin 300 mg PO QAM #0 05/22/15 08/25/20 History grape seed extract 100 mg PO QPM #0 05/22/15 08/25/20 History levothyroxine 88 mcg PO QAM #0 05/22/15 08/25/20 History multivitamin with minerals [Men's 1 tab PO DAILY #0 05/22/15 08/25/20 History One Daily] atorvastatin [Lipitor] 20 mg PO QAM #0 tab 05/05/18 08/25/20 History metoprolol tartrate 25 mg PO BID 12/29/19 08/25/20 History amlodipine 10 mg PO QAM 06/22/20 08/25/20 History hydralazine 10 mg PO BID 06/22/20 08/25/20 History albuterol sulfate [Ventolin HFA] 2 puff INHALATION QID PRN 07/25/20 08/25/20 History budesonide-formoterol [Symbicort] 2 inh INHALATION HS PRN 07/25/20 08/25/20 History insulin asp prt-insulin aspart 16 unit SUBCUT AMPM 07/25/20 08/25/20 History [Novolog Mix 70-30FlexPen U-100] oxycodone-acetaminophen [Percocet] 1 tab PO Q4H PRN 07/25/20 08/25/20 History tamsulosin [Flomax] 0.4 mg PO DAILY 08/14/20 08/25/20 History tiotropium bromide 2 puff INHALATION DAILY 08/14/20 08/25/20 History acetaminophen 500 - 1,000 mg PO Q6H PRN 08/25/20 08/25/20 History cinnamon bark [Cinnamon] 500 mg PO DAILY 08/25/20 08/25/20 History cranberry 400 mg PO DAILY 08/25/20 08/25/20 History Allergies Allergy/AdvReac Type Severity Reaction Status Date / Time lisinopril Allergy Unknown Unverified 08/25/20 09:28 ASPIRIN (IN DOSES LARGER AdvReac Intermediate N/V Uncoded 08/25/20 09:28 THAN 81MG) Past Med/Surg History Medical History Acute renal failure on dialysis Agent [place] poisoning Chronic pancreatitis Elevated troponin GERD (gastroesophageal reflux disease) History of pacemaker Hyperlipidemia LDL goal <70 Hypertension Hypothyroidism (acquired) Insulin-requiring or dependent type II diabetes mellitus Morbid obesity Pancreatic insufficiency Peripheral neuropathy Smoker Surgical History History of permanent cardiac pacemaker placement Family History Other Family history non-contributory Social History Smoking Status: Former smoker Tobacco Type: Cigarettes Cigarettes Per Day: 15; Second Hand Exposure: No; Hx Alcohol Use: No Hx Substance Use: No Preferred Language: Hebrew Communication Ability: Effective Supplier Diversity Director Required: No Beliefs That Will Affect Care: None marital status: Current Living Situation: Spouse Feels Safe at Home: Yes Assistive Devices: Oxygen - Continuous and Walker Review of Systems A total of 10 systems reviewed and were otherwise negative Physical Exam Vital Signs Vital Signs - 24 hr 08/25/20 08:28 08/25/20 08:30 08/25/20 08:45 Temperature 37.5 C Temperature Source Oral Pulse Rate 78 77 82 Pulse Rate [Right Finger] Pulse Rate from SpO2 Sensor 78 77 Respiratory Rate 28 H 26 H 20 Respiratory Effort / Characteristics Non-Labored Spontaneous Respiratory Depth Normal Respiratory Pattern Regular Blood Pressure 118/96 118/96 Blood Pressure Mean 104 103 Pulse Oximetry 95 97 88 L Oxygen Delivery Method Nasal Cannula Room Air Oxygen Flow Rate 4 4 Fraction of Inspired Oxygen Sepsis Recent Fever Within 48 Hours No Sepsis New/Unexplained Change in Mental Status No Sepsis Action Taken by Nursing No Action Required Oxygen Flow Rate - Titration 4 Pulse Oximetry Post Tiitration 96 08/25/20 08:48 08/25/20 08:53 08/25/20 09:00 Temperature Temperature Source Pulse Rate 86 82 78 Pulse Rate [Right Finger] 86 Pulse Rate from SpO2 Sensor 78 Respiratory Rate 31 H 26 H 29 H Respiratory Effort / Characteristics Spontaneous Labored Respiratory Depth Respiratory Pattern Tachypnea Blood Pressure Blood Pressure Mean Pulse Oximetry 98 96 100 Oxygen Delivery Method BiPAP Nasal Cannula BiPAP Oxygen Flow Rate 4 Fraction of Inspired Oxygen 40 Sepsis Recent Fever Within 48 Hours Sepsis New/Unexplained Change in Mental Status Sepsis Action Taken by Nursing Oxygen Flow Rate - Titration Pulse Oximetry Post Tiitration 08/25/20 09:30 08/25/20 09:57 08/25/20 10:00 Temperature Temperature Source Pulse Rate 74 84 72 Pulse Rate [Right Finger] Pulse Rate from SpO2 Sensor 74 79 73 Respiratory Rate 27 H 25 H 26 H Respiratory Effort / Characteristics Respiratory Depth Respiratory Pattern Blood Pressure 108/63 108/63 123/69 Blood Pressure Mean 78 84 90 Pulse Oximetry 100 99 99 Oxygen Delivery Method BiPAP BiPAP BiPAP Oxygen Flow Rate Fraction of Inspired Oxygen Sepsis Recent Fever Within 48 Hours Sepsis New/Unexplained Change in Mental Status Sepsis Action Taken by Nursing Oxygen Flow Rate - Titration Pulse Oximetry Post Tiitration 08/25/20 10:30 Temperature Temperature Source Pulse Rate 71 Pulse Rate [Right Finger] Pulse Rate from SpO2 Sensor 70 Respiratory Rate 23 Respiratory Effort / Characteristics Respiratory Depth Respiratory Pattern Blood Pressure 94/46 L Blood Pressure Mean 57 Pulse Oximetry 98 Oxygen Delivery Method BiPAP Oxygen Flow Rate Fraction of Inspired Oxygen Sepsis Recent Fever Within 48 Hours Sepsis New/Unexplained Change in Mental Status Sepsis Action Taken by Nursing Oxygen Flow Rate - Titration Pulse Oximetry Post Tiitration VITAL SIGNS - Vital signs and nursing notes were reviewed. GENERAL - 74-year-old appearing stated age who is in no acute distress. Communicates well with provider and answers questions appropriately. SKIN - Without rashes. HEAD - NC/AT. EYES - PERRL with EOMI bilaterally. Sclera anicteric. Palpebral conjunctiva pink and moist with no injection noted. EARS - No deformities of external structures noted on gross examination bilaterally. No pain elicited with palpation of the tragus bilaterally. External auditory canals without discharge or otorrhea. Tympanic membranes pearly sorensen without retraction or bulging. No fluid or purulent material visualized behind the TM. Handle of malleus, umbo, cone of light, pars tensa/flaccid all easily visualized. NOSE - Midline and without cyanosis. No epistaxis or purulent drainage noted. Septum midline without deviation or septal hematoma noted. MOUTH/OROPHARYNX - Without perioral cyanosis. Buccal mucosa pink and moist and without leukoplakia. Tongue midline with equal elevation of palate bilaterally. No tonsillar hypertrophy, erythema, or exudates noted. dentition noted. NECK - Neck with FROM. Supple to palpation. lymphadenopathy noted. No nuchal rigidity. LUNGS - Chest wall symmetric without accessory muscle use, intercostals retractions, or central cyanosis. Normal vesicular breath sounds CTA B/L. No wheezes, rales, or rhonchi appreciated. CARDIAC - RRR with S1/S2. No murmur, rubs, or gallops appreciated. ABDOMEN - Abdominal contour without pulsations or visible masses. BS normoactive all four quadrants. No tenderness, palpable masses, hepatosplenomegaly, or ascites noted. EXTREMITIES - No clubbing or peripheral cyanosis. No pretibial edema present. +3/5 radial, posterior tibial, and dorsalis pedis pulses palpated throughout. +5/5 strength noted in UE/LE bilaterally. NEUROLOGIC - Cranial nerves II through XII grossly intact. Sensory intact to light touch throughout. Patellar reflexes +2/4. PSYCH - A&Ox3 and cooperates fully with examiner. Pt is very pleasant and interacts well with examiner. Course Administered Medications Discontinued Medications Albuterol (Albut/Ipratrop 3mg/0.5mg Neb 3 Ml Vial) 12 ml NEB ONE ONE Stop: 08/25/20 08:34 Last Admin: 08/25/20 08:48 Dose: 12 ml Documented by: [id number] Magnesium Sulfate/Dextrose (Magnesium Sulfate / D5w) 1 gm in 100 mls @ 100 mls/hr IV NOW STA Stop: 08/25/20 09:31 Last Infusion: 08/25/20 10:21 Dose: 0 mls/hr Documented by: [id number] Admin: 08/25/20 09:15 Dose: 100 mls/hr Documented by: [id number] Sodium Chloride (Nss) 500 mls @ 999 mls/hr IV .Q31M ONE Stop: 08/25/20 10:29 Last Infusion: 08/25/20 11:00 Dose: 0 mls/hr Documented by: [id number] Admin: 08/25/20 10:29 Dose: 999 mls/hr Documented by: [id number] Piperacillin Sod/Tazobactam Sod (Zosyn) 4.5 gm in 120 mls @ 240 mls/hr IV NOW ONE Stop: 08/25/20 10:28 Last Infusion: 08/25/20 11:00 Dose: 0 mls/hr Documented by: [id number] Admin: 08/25/20 10:29 Dose: 240 mls/hr Documented by: [id number] Methylprednisolone (Methylprednisolone 125 Mg/2 Ml Vial) 60 mg IV NOW STA Stop: 08/25/20 08:34 Last Admin: 08/25/20 09:12 Dose: 60 mg Documented by: [id number] Ondansetron HCl (Ondansetron Inj 2 Mg/Ml 2 Ml Vial) 4 mg IV NOW STA Stop: 08/25/20 09:59 Last Admin: 08/25/20 10:25 Dose: 4 mg Documented by: [id number] Critical Care Time I have personally spent greater than 30 minutes of critical care time in the direct management of this patient. This includes bedside care, interpretation of diagnostic studies, and testing, discussion with consultants, patient, and family members, and other required patient management activities. This 30 minutes is in excess of all separately billable procedures. Medical Decision Making Differential Diagnosis Reactive airway disease, pneumonia, pneumothorax, COPD, CHF, infections, cardiac ischemia, pulmonary embolism, musculoskeletal, gastrointestinal, as well as other pathologies. Medical Records Attestation: I reviewed the patient's medical records. Home Medications Current Medication List: was personally reviewed by me Laboratory Data Attestation: I reviewed the patient's lab results. Result diagrams: 08/25/20 09:07 08/25/20 09:07 Lab Results 08/25/20 08/25/20 08/25/20 Range/Units 08:30 08:30 09:07 WBC 21.82 H (4.8-10.8) K/uL RBC 3.66 L (4.7-6.1) M/uL Hgb 10.9 L (14.0-18.0) g/dL Hct 35.1 L (42-52) % MCV 95.9 (80-100) fL MCH 29.8 (25-34) pg MCHC 31.1 L (32-36) g/dL RDW Std Deviation 58.1 H (36.4-46.3) fL RDW Coeff of Hilda 16.5 H (11.5-14.5) % Plt Count 369 (130-400) K/uL MPV 9.4 (7.4-10.4) fL Immature Gran % (Auto) 0.4 % Neut % (Auto) 90.1 % Lymph % (Auto) 4.2 % [place] % (Auto) 5.0 % Eos % (Auto) 0.2 % Baso % (Auto) 0.1 % Neut # (Auto) 19.63 H (1.4-6.5) K/uL Lymph # (Auto) 0.92 L (1.2-3.4) K/uL [place] # (Auto) 1.10 H (0.11-0.59) K/uL Eos # (Auto) 0.05 (0-0.5) K/uL Baso # (Auto) 0.03 (0-0.2) K/uL Immature Gran # (Auto) 0.09 H (0.00-0.02) K/uL PT (9.0-12.0) Seconds INR (0.9-1.1) APTT (21.0-31.0) Seconds PTT Ratio Sodium (136-145) mmol/L Potassium (3.5-5.1) mmol/L Chloride (98-107) mmol/L Carbon Dioxide (21-32) mmol/L Anion Gap (3-11) BUN (7-18) mg/dl Creatinine (0.6-1.4) mg/dl Est Cr Clr Drug Dosing ml/min Est GFR ( Amer) Est GFR (Non-Af Amer) BUN/Creatinine Ratio (10-20) Glucose (70-99) mg/dl Lactate (0.4-2.0) mmol/L Calcium (8.5-10.1) mg/dl Magnesium (1.8-2.4) mg/dl Total Bilirubin (0.2-1) mg/dl AST (15-37) U/L ALT (12-78) U/L Alkaline Phosphatase (45-117) U/L Troponin I (0-0.045) ng/ml Total Protein (6.4-8.2) gm/dl Albumin (3.4-5.0) gm/dl Globulin (2.5-4.0) gm/dl Albumin/Globulin Ratio (0.9-2) Beta-Hydroxybutyric Acd Procalcitonin (0-0.5) ng/ml COVID-19 Eval Order Covid19 Done at [facility] COVID-19 PCR NEGATIVE (Negative) 08/25/20 08/25/20 08/25/20 Range/Units 09:07 09:07 09:07 WBC (4.8-10.8) K/uL RBC (4.7-6.1) M/uL Hgb (14.0-18.0) g/dL Hct (42-52) % MCV (80-100) fL MCH (25-34) pg MCHC (32-36) g/dL RDW Std Deviation (36.4-46.3) fL RDW Coeff of Hilda (11.5-14.5) % Plt Count (130-400) K/uL MPV (7.4-10.4) fL Immature Gran % (Auto) % Neut % (Auto) % Lymph % (Auto) % [place] % (Auto) % Eos % (Auto) % Baso % (Auto) % Neut # (Auto) (1.4-6.5) K/uL Lymph # (Auto) (1.2-3.4) K/uL [place] # (Auto) (0.11-0.59) K/uL Eos # (Auto) (0-0.5) K/uL Baso # (Auto) (0-0.2) K/uL Immature Gran # (Auto) (0.00-0.02) K/uL PT 10.9 (9.0-12.0) Seconds INR 1.0 (0.9-1.1) APTT 24.8 (21.0-31.0) Seconds PTT Ratio 0.9 Sodium 136 (136-145) mmol/L Potassium 4.8 (3.5-5.1) mmol/L Chloride 104 (98-107) mmol/L Carbon Dioxide 24 (21-32) mmol/L Anion Gap 8.0 (3-11) BUN 52 H (7-18) mg/dl Creatinine 4.56 H* (0.6-1.4) mg/dl Est Cr Clr Drug Dosing 18.2 ml/min Est GFR ( Amer) 13.9 Est GFR (Non-Af Amer) 12.0 BUN/Creatinine Ratio 11.2 (10-20) Glucose 324 H* (70-99) mg/dl Lactate 2.0 (0.4-2.0) mmol/L Calcium 9.0 (8.5-10.1) mg/dl Magnesium 2.7 H (1.8-2.4) mg/dl Total Bilirubin 0.2 (0.2-1) mg/dl AST 19 (15-37) U/L ALT 10 L (12-78) U/L Alkaline Phosphatase 114 (45-117) U/L Troponin I 0.066 H* (0-0.045) ng/ml Total Protein 7.4 (6.4-8.2) gm/dl Albumin 2.2 L (3.4-5.0) gm/dl Globulin 5.2 H (2.5-4.0) gm/dl Albumin/Globulin Ratio 0.4 L (0.9-2) Beta-Hydroxybutyric Acd TNP Procalcitonin (0-0.5) ng/ml COVID-19 Eval Order COVID-19 PCR (Negative) 08/25/20 Range/Units 09:07 WBC (4.8-10.8) K/uL RBC (4.7-6.1) M/uL Hgb (14.0-18.0) g/dL Hct (42-52) % MCV (80-100) fL MCH (25-34) pg MCHC (32-36) g/dL RDW Std Deviation (36.4-46.3) fL RDW Coeff of Hilda (11.5-14.5) % Plt Count (130-400) K/uL MPV (7.4-10.4) fL Immature Gran % (Auto) % Neut % (Auto) % Lymph % (Auto) % [place] % (Auto) % Eos % (Auto) % Baso % (Auto) % Neut # (Auto) (1.4-6.5) K/uL Lymph # (Auto) (1.2-3.4) K/uL [place] # (Auto) (0.11-0.59) K/uL Eos # (Auto) (0-0.5) K/uL Baso # (Auto) (0-0.2) K/uL Immature Gran # (Auto) (0.00-0.02) K/uL PT (9.0-12.0) Seconds INR (0.9-1.1) APTT (21.0-31.0) Seconds PTT Ratio Sodium (136-145) mmol/L Potassium (3.5-5.1) mmol/L Chloride (98-107) mmol/L Carbon Dioxide (21-32) mmol/L Anion Gap (3-11) BUN (7-18) mg/dl Creatinine (0.6-1.4) mg/dl Est Cr Clr Drug Dosing ml/min Est GFR ( Amer) Est GFR (Non-Af Amer) BUN/Creatinine Ratio (10-20) Glucose (70-99) mg/dl Lactate (0.4-2.0) mmol/L Calcium (8.5-10.1) mg/dl Magnesium (1.8-2.4) mg/dl Total Bilirubin (0.2-1) mg/dl AST (15-37) U/L ALT (12-78) U/L Alkaline Phosphatase (45-117) U/L Troponin I (0-0.045) ng/ml Total Protein (6.4-8.2) gm/dl Albumin (3.4-5.0) gm/dl Globulin (2.5-4.0) gm/dl Albumin/Globulin Ratio (0.9-2) Beta-Hydroxybutyric Acd Procalcitonin 4.89 H (0-0.5) ng/ml COVID-19 Eval Order COVID-19 PCR (Negative) ECG Data Attestation: I personally reviewed and interpreted this ECG as follows: Rate (beats per minute): 72 ECG Intervals/blocks: + Right Bundle branch block ECG [place]: + Normal and + Left axis deviation ECG ST segments: no ST depression and no ST elevation ECG Findings: + Other Comparison ECG Date: from (07/25/2020) Change: the following changes noted (suspect unspecified pacemaker failure) MDM Narrative Patient was seen and evaluated as above in room C6. Review was performed of nursing notes and vital signs. I did review pertinent previous visits and patient history. After obtaining a thorough history and physical examination the above work up was performed. This 74-year-old male who presents the emergency department acute distress. Patient was placed on BiPAP. He was given Solu-Medrol DuoNeb breathing t reatment magnesium. He was started on broad-spectrum antibiotics based on the patient's previous hospital admission. He appears to have pneumonia on the chest x-ray. He has a large elevation in his white blood cell count. I did discuss the case with the hospitalist service. I will note that the patient's creatinine is also bumped. An order was placed for continuous cardiac monitoring. The monitor shows a rate of 70 with paced rhythm. The patient was evaluated during the global COVID-19 pandemic, and that diagnosis was suspected/considered upon their initial presentation. Their devon luation, treatment and testing was consistent with current guidelines for patients who present with complaints or symptoms that may be related to COVID- 19. Impression & Plan LLL pneumonia, Acute renal failure, COPD (chronic obstructive pulmonary disease), Hypoxia Discharge Plan Visit Data Chief Complaint: Shortness of Breath/Dyspnea ED Provider: Omkar Estrada ED Midlevel Provider: Malinda Alvarado Discharge Problem: LLL pneumonia, Acute renal failure, COPD (chronic obstructive pulmonary disease), Hypoxia Forms Stand Alone Forms: My [facility] Prescriptions Prescriptions: No Action levothyroxine 88 mcg Tablet 88 mcg PO QAM Qty: 0 RF: 0 grape seed extract 50 mg Capsule 100 mg PO QPM Qty: 0 RF: 0 gabapentin 300 mg Capsule 300 mg PO QAM Qty: 0 RF: 0 multivitamin with minerals [Men's One Daily] Tablet 1 tab PO DAILY Qty: 0 RF: 0 Creon 24,000-76,000 -120,000 unit Capsule,Delayed Release(Dr/Ec) 1 cap PO TIDM Qty: 0 RF: 0 atorvastatin [Lipitor] 40 mg Tablet 20 mg PO QAM Qty: 0 RF: 0 oxycodone-acetaminophen [Percocet] 5-325 mg Tablet 1 tab PO Q4H PRN (Reason: Pain) RF: 0 albuterol sulfate [Ventolin HFA] 90 mcg/actuation Hfa Aerosol Inhaler 2 puff INHALATION QID PRN (Reason: Shortness Of Breath) RF: 0 insulin asp prt-insulin aspart [Novolog Mix 70-30FlexPen U-100] 100 unit/mL (70-30) Insulin Pen 16 unit SUBCUT AMPM RF: 0 budesonide-formoterol [Symbicort] 160-4.5 mcg/actuation HFA aerosol inhaler 2 inh INHALATION HS PRN (Reason: Shortness Of Breath) RF: 0 acetaminophen 500 mg Tablet 500 - 1,000 mg PO Q6H PRN (Reason: Pain) RF: 0 cranberry 400 mg Capsule 400 mg PO DAILY RF: 0 cinnamon bark [Cinnamon] 500 mg Capsule 500 mg PO DAILY RF: 0 metoprolol tartrate 25 mg Tablet 25 mg PO BID RF: 0 hydralazine 10 mg Tablet 10 mg PO BID RF: 0 amlodipine 10 mg Tablet 10 mg PO QAM RF: 0 tamsulosin [Flomax] 0.4 mg Capsule 0.4 mg PO DAILY RF: 0 tiotropium bromide 2.5 mcg/actuation Mist 2 puff INHALATION DAILY RF: 0 Discharge Problem: LLL pneumonia Qualifiers: Pneumonia type: due to unspecified organism Qualified Code(s): J18.9 - Pneumonia, unspecified organism Acute renal failure Qualifiers: Acute renal failure type: unspecified Qualified Code(s): N17.9 - Acute kidney failure, unspecified COPD (chronic obstructive pulmonary disease) Qualifiers: COPD type: unspecified COPD Qualified Code(s): J44.9 - Chronic obstructive pulmonary disease, unspecified
[2020-08-25] MEDS ORDERED: MAGNESIUM SULFATE / D5W 1 GM/100 ML BAG IV STA (08:32)
[2020-08-25] MEDS ORDERED: ALBUT/IPRATROP 3MG/0.5MG NEB 3 ML VIAL NEB ONE (08:33)
[2020-08-25] MEDS ORDERED: methylPREDNISolone 125 MG/2 ML VIAL IV STA (08:33)
--- NOTE | 2020-08-25 08:35 | Emergency Department Note ---
General (ED) Blank Date of Service August 25, 2020 ED Visit Note I personally saw, interviewed, and examined the patient. Patient's case was discussed with Dr. Estrada, ED attending, and I assisted with MDM. Please see attending documentation for full details. Resident Activity Tracking Resident Involvement: Resident Care Provided Care Provided: Adult ED : LLL pneumonia Qualifiers: Pneumonia type: due to unspecified organism Qualified Code(s): J18.9 - Pneumonia, unspecified organism COPD (chronic obstructive pulmonary disease) Qualifiers: COPD type: unspecified COPD Qualified Code(s): J44.9 - Chronic obstructive pulmonary disease, unspecified
[2020-08-25 09:19] LABS: Basophils # (auto) 0.03 K/uL (0-0.2); Basophils % (auto) 0.1 %; Eosinophils # (auto) 0.05 K/uL (0-0.5); Eosinophils % (auto) 0.2 %; Hematocrit (blood only) 35.1 % (42-52); Hemoglobin 10.9 g/dL (14.0-18.0); Immature Granulocytes # (auto) 0.09 K/uL (0.00-0.02); Immature Granulocytes % (auto) 0.4 %; Lymphocytes # (auto) 0.92 K/uL (1.2-3.4); Lymphocytes % (auto) 4.2 %; Mean Corpuscular Hemoglobin 29.8 pg (25-34); Mean Corpuscular Hgb Conc 31.1 g/dL (32-36); Mean Corpuscular Volume 95.9 fL (80-100); Mean Platelet Volume 9.4 fL (7.4-10.4); Neutrophils # (auto) 19.63 K/uL (1.4-6.5); Neutrophils % (auto) 90.1 %; Platelet Count 369 K/uL (130-400); RDW Coefficient of Variation 16.5 % (11.5-14.5); RDW Standard Deviation 58.1 fL (36.4-46.3); Red Blood Count 3.66 M/uL (4.7-6.1); White Blood Count 21.82 K/uL (4.8-10.8)
[2020-08-25 09:31] LABS: Partial Thromboplastin Ratio 0.9; Partial Thromboplastin Time 24.8 Seconds (21.0-31.0); Prothrombin Time 10.9 Seconds (9.0-12.0)
--- NOTE | 2020-08-25 09:39 | XRay Report ---
XR chest 1V portable HISTORY: 74 years-old Male SEPSIS acute shortness breath with wheezing and sepsis. COMPARISON: Chest radiograph 08/03/2020 TECHNIQUE: Portable AP view of the chest FINDINGS: Cardiac silhouette is enlarged. Left subclavian pacer. No pneumothorax. The right lung is clear. Mild pulmonary vascular congestion. Small to moderate left pleural effusion with left lung base consolida tion. Bones of the chest appear grossly intact. IMPRESSION: 1. Cardiomegaly with pulmonary vascular congestion. 2. Small to moderate left pleural effusion with left lung base consolidation. ACT 112: Negative or not required by law. The above report was generated using voice recognition software. It may contain grammatical, syntax o r spelling errors. Electronically signed by: Michael Truong M.D. 08/25/2020 9:38 AM
[2020-08-25 09:53] LABS: Alanine Aminotransferase 10 U/L (12-78); Albumin Globulin Ratio 0.4 (0.9-2); Albumin Level 2.2 gm/dl (3.4-5.0); Alkaline Phosphatase 114 U/L (45-117); Aspartate Aminotransferase 19 U/L (15-37); BUN Creatinine Ratio 11.2 (10-20); Bilirubin,Total 0.2 mg/dl (0.2-1); Blood Urea Nitrogen 52 mg/dl (7-18); Carbon Dioxide 24 mmol/L (21-32); Chloride 104 mmol/L (98-107); Creatinine Clr Calc Pharmacy 18.2 ml/min; Est GFR (African American) 13.9; Globulin 5.2 gm/dl (2.5-4.0); Glucose 324 mg/dl (70-99); Magnesium 2.7 mg/dl (1.8-2.4); Potassium 4.8 mmol/L (3.5-5.1); Sodium 136 mmol/L (136-145); Total Protein 7.4 gm/dl (6.4-8.2); Troponin I 0.066 ng/ml (0-0.045)
[2020-08-25] MEDS ORDERED: ONDANSETRON INJ 2 MG/ML 2 ML VIAL IV STA (09:58)
[2020-08-25] MEDS ORDERED: SODIUM CHLORIDE 0.9% 500 ML IV ONE (09:59)
[2020-08-25] MEDS ORDERED: PIPERACILLIN/TAZOBACTAM 4.5 GM/120 ML BAG IV ONE (09:59)
[2020-08-25] MEDS ORDERED: DAPTOmycin 450 MG in SYRINGE 0 ML IV ONE (09:59)
[2020-08-25] MEDS ORDERED: levoFLOXacin/D5W 750 MG/150 ML BAG IV STA (09:59)
[2020-08-25] MEDS ORDERED: PIPERACILL/TAZOBAC CONSULT ACTIVE PRN ×2 (09:59→12:48)
--- NOTE | 2020-08-25 10:22 | History & Physical Report ---
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 cultures sent, covid negative procalcitonin elevated. will consider continuing daptomycin and zosyn to cover the resistant enterococcus and await cultures understanding that daptomycin does not provide lung penetration this pt is not with a clear cut pneumonia, does not have cough. Initial presentation was profound weakness and shortness of breath, could be COPD but with elevated troponin will also consider silent angina and trend his trops, also consider endocarditis given previous VRE Bacteremia just d/c 08/04/20, he did have ID eval and a ALONDRA without vegetations and have his femoral dialysis cath pulled which was thought to be the source of infection, he does not have murmur or peripheral stigmata of endocarditis at this time, will check ESR and additional Blood cultures. concern for pacemakers (2) Elevated troponin: Pt without clear cut angina, but does have risk factors, will trend, did have 2 echos last admission( one that was ALONDRA) with preserved EF, continuing metoprolol holding hydralazine and amlodipine due to lower blood pressure (3) COPD (chronic obstructive pulmonary disease): will be continued on iv steroids and duonebs, did check abg PT is slightly low but looks to be metabolic and not respiratory, (4) Chronic pancreatitis: has no complaints of abd pain or diarrhea, will continue creon (5) Insulin-requiring or dependent type II diabetes mellitus: Pt did not respond to basal bolus insulin, was transitioned to iv insulin gtt (6) Hypothyroidism (acquired): synthroid 88 mcg (7) CKD (chronic kidney disease): Pt has CKD 4, will consult Dr Daniels, 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 Patient reports he became short of breath last evening. He reports any movement makes the shortness of breath worse however rest allows him to get better. The patient arrives in 6 L of oxygen placed by EMS. Patient was placed on BiPAP breathing. When I saw the patient he was without respiratory distress. He was transitioned to nasal cannula and had done well throughout his time in the emergency department. He was tested for short 2 weeks ago once again is negative this evening. Procalcitonin is elevated 4.89 there is some concern is a pulmonary infection with x-ray showing possible left basilar consolidation patient is also significantly hyper glycemic which would not be helped by steroids or administered for COPD exacerbation.. Allergies Allergy/AdvReac Type Severity Reaction Status Date / Time lisinopril Allergy Unknown Unverified 08/25/20 09:28 ASPIRIN (IN DOSES LARGER AdvReac Intermediate N/V Uncoded 08/25/20 09:28 THAN 81MG) Home Medications Home Medications Medication Instructions Recorded Confirmed Type Creon 1 cap PO TIDM #0 05/22/15 08/25/20 History gabapentin 300 mg PO QAM #0 05/22/15 08/25/20 History grape seed extract 100 mg PO QPM #0 05/22/15 08/25/20 History levothyroxine 88 mcg PO QAM #0 05/22/15 08/25/20 History multivitamin with minerals [Men's 1 tab PO DAILY #0 05/22/15 08/25/20 History One Daily] atorvastatin [Lipitor] 20 mg PO QAM #0 tab 05/05/18 08/25/20 History metoprolol tartrate 25 mg PO BID 12/29/19 08/25/20 History amlodipine 10 mg PO QAM 06/22/20 08/25/20 History hydralazine 10 mg PO BID 06/22/20 08/25/20 History albuterol sulfate [Ventolin HFA] 2 puff INHALATION QID PRN 07/25/20 08/25/20 His tory budesonide-formoterol [Symbicort] 2 inh INHALATION HS PRN 07/25/20 08/25/20 History insulin asp prt-insulin aspart 16 unit SUBCUT AMPM 07/25/20 08/25/20 History [Novolog Mix 70-30FlexPen U-100] oxycodone-acetaminophen [Percocet] 1 tab PO Q4H PRN 07/25/20 08/25/20 History tamsulosin [Flomax] 0.4 mg PO DAILY 08/14/20 08/25/20 History tiotropium bromide 2 puff INHALATION DAILY 08/14/20 08/25/20 History acetaminophen 500 - 1,000 mg PO Q6H PRN 08/25/20 08/25/20 History cinnamon bark [Cinnamon] 500 mg PO DAILY 08/25/20 08/25/20 History cranberry 400 mg PO DAILY 08/25/20 08/25/20 History Past Med/Surg History Medical History Acute renal failure on dialysis Agent [place] poisoning Chronic pancreatitis Elevated troponin GERD (gastroesophageal reflux disease) History of pacemaker Hyperlipidemia LDL goal <70 Hypertension Hypothyroidism (acquired) Insulin-requiring or dependent type II diabetes mellitus Morbid obesity Pancreatic insufficiency Peripheral neuropathy Smoker Surgical History History of permanent cardiac pacemaker placement Family History Other Family history non-contributory Social History Smoking Status: Former smoker Tobacco Type: Cigarettes Cigarettes Per Day: 15; Second Hand Exposure: No; Hx Alcohol Use: No Hx Substance Use: No Preferred Language: Persian Communication Ability: Effective Chop Saw Operator Required: No Beliefs That Will Affect Care: None marital status: Current Living Situation: Spouse Other Information That Helps Us Care for You: No Feels Safe at Home: Yes Safety Concerns: Feels Safe At This Time Assistive Devices: None Assistive Devices Comment: Only use the uppers Review of Systems Review of Systems: Moderate distress and fatigue no headache, blurry or double vision no speech or swallowing issues no chest pain, pressure or palpitations Slightly worse than baseline shortness of breath no overt coughing no wheezing no abdominal pain, nausea or vomiting, diarrhea or constipation Little urine output somewhat reddened no focal joint pain or swelling no back pain, CVA tenderness or radicular pain no bruising, bleeding or rashes no focal signs of weakness or numbness or altered sensation low bili we no complaints of anxiety or depression. Physical Exam Physical Exam: The patient appeared chronically ill and in moderate distress Vital signs as documented. Soon his blood pressure slightly low he is tachypneic Head exam is normocephalic atraumatic no scleral icterus Neck trachea is midline Lungs are overall diminished breath sounds no focal loss no wheezes no particularly prolonged expiratory phase Cardiac exam, Rhythm is regular.. No murmurs, rubs or gallops. Abdominal exam reveals normal bowel sounds, soft slightly distended Extremities are trace edema if anything he has a raise on his left leg from foot drop which is pre-existing condition Neurologic exam is alert and oriented, no focal loss of strength or sensation session of left foot drop Skin is without bruises or rashes Psychologically is without concerns for anxiety or depression. Results & Data Results & Data ([facility]) Vital Signs (Past 12 Hours) Vital Signs Temp Pulse Pulse Resp BP Pulse Ox 08/25/20 10:00 72 26 H 123/69 99 08/25/20 09:57 84 25 H 108/63 99 08/25/20 09:30 74 27 H 108/63 100 08/25/20 09:00 78 29 H 100 08/25/20 08:53 82 26 H 96 08/25/20 08:48 86 86 31 H 98 08/25/20 08:45 99.5 F 82 20 118/96 88 L 08/25/20 08:30 77 26 H 97 08/25/20 08:28 78 28 H 118/96 95 PG Care Time/CCT Total # of Minutes Spent Total Time Spent with Patient: Total time spent is greater than 50% in coordination of care (as documented) at patient's floor/unit and/or counseling patient: Coding Level of Care Code 24296 Initial Inpt Care Lvl 3 Diagnoses LLL pneumonia J18.9 Elevated troponin R77.8 COPD (chronic obstructive pulmonary disease) J44.9 COPD type: unspecified COPD Chronic pancreatitis K86.1 Pancreatitis type: unspecified pancreatitis type Insulin-requiring or dependent type II diabetes mellitus E11.9; Z79.4 Hypothyroidism (acquired) E03.9 CKD (chronic kidney disease) N18.9 Smoker F17.200 DVT prophylaxis Z29.9 (1) Chronic pancreatitis Pancreatitis type: unspecified pancreatitis type Qualified Code(s): K86.1 - Other chronic pancreatitis (2) COPD (chronic obstructive pulmonary disease) COPD type: unspecified COPD Qualified Code(s): J44.9 - Chronic obstructive pulmonary disease, unspecified
[2020-08-25] MEDS ORDERED: GLUCOSE 10 TABS/TUBE PO PRN (10:35)
[2020-08-25] MEDS ORDERED: GLUCAGON FOR INJ 1 MG VIAL SQ PRN (10:35)
[2020-08-25] MEDS ORDERED: GLUCOSE 40% GEL 15 GM TUBE PO PRN (10:35)
[2020-08-25 11:09] LABS: Base Excess ABG -5.2 mEq/L (-9-1.8); HCO3 ABG 21 mmol/L (19-24); Oxygen Saturation ABG 98.8 % (90-95); PCO2 ABG 41 mmHg (35-46); PO2 ABG 142 mmHg (80-95); pH ABG 7.32 (7.35-7.45)
[2020-08-25 11:15] LABS: Allen Test Pos (Pos)
--- NOTE | 2020-08-25 11:33 | Electrocardiogram Report ---
Test Reason : Blood Pressure : / mmHG Vent. Rate : 143 BPM Atrial Rate : 153 BPM P-R Int : 104 ms QRS Dur : 172 ms QT Int : 168 ms P-R-T Axes : 000 -57 000 degrees QTc Int : 259 ms Suspect unspecified pacemaker failure AV dual-paced rhythm Abnormal ECG When compared with ECG of 25-JUL-2020 11:43, No significant change Confirmed by Ke Gary ([id number]) on 08/25/2020 11:33:20 AM Referred By: REFERRED SELF Confirmed By:Ke Gary
[2020-08-25] MEDS ORDERED: INSULIN GLARGINE SOLOSTAR 100 UNITS/ML 3 ML PEN SC ONE (12:11)
[2020-08-25] MEDS ORDERED: PHARMACY GLYCEMIC MGMT CONSULT PRN (12:37)
[2020-08-25] MEDS ORDERED: POLYETHYLENE (MIRALAX) 17 GM PACK PO PRN (12:48)
[2020-08-25] MEDS ORDERED: NORMOSOL-R 1,000 ML IV ONE (12:48)
[2020-08-25] MEDS ORDERED: INSULIN HUMAN REGULAR PER UNIT 10 UNITS in SYRINGE 9.9 ML IV ONE (13:30)
[2020-08-25] MEDS: ALBUT/IPRATROP 3MG/0.5MG NEB 3 ML VIAL NEB SCH ×4 (14:13→23:18)
[2020-08-25] MEDS: INSULIN ASPART 100 UNITS/ML 3 ML PEN SC SCH ×4 (14:35→20:12)
--- NOTE | 2020-08-25 14:42 | Nephrology Consultation ---
Date of Consultation August 25, 2020 Assessment & Plan (1) Acute renal failure: * JIMMY on CKD due to SIRS: LLL pneumonia and relative hypotension * 500 cc NS fluid bolus administered in ED. SBP has improved from 90 to 123 mmHg * Recommend judicious use of IVF due to tenuous respiratory status. Consider pressor support for MAP < 65 * Will order PRP for am, urinalysis w/ microscopy * Electrolyte balance is acceptable. No acute indication for EXPLOSIVE EXPERT at this time. (2) CKD (chronic kidney disease): * 06/23 renal US: Both kidneys w/ diffuse cortical thinning * CKD likely on the basis of microvascular disease * Baseline Cr 1.8 - 2.0 (3) LLL pneumonia: * Recommend consultation w/ pharmacy for antibiotic dosing in the setting of JIMMY History of Present Illness Reason for Consultation: JIMMY/CKD Attending Physician: Brennan Metcalf MD History of Present Illness Mr. Morales is a 74 year old white male who is seen at the request of Dr. Metcalf for evaluation of JIMMY/CKD. Medical records in the EMR were reviewed today and are summarized as follows: Mr. Morales is a . He has received the majority of his medical care through the [place] [facility] system. Mr. Morales was hospitalized 06/22/20 - 06/24/20 at [facility] for evaluation of R flank pain. Renal US revealed diffuse cortical thinning of both kidneys and R hydronephrosis. Urology performed cystoscopy 06/23/20 but was [address] to place a ureteral stent. Mr. Morales was transferred to [facility] and underwent a percutaneous nephrostomy tube. Unfortunately he developed progressive JIMMY/CKD and required initiation of EXPLOSIVE EXPERT. Attempts at R IJ THC were unsuccessful. L IJ THC was not attempted due to pacemaker. Mr. Morales required R femoral THC placement and subsequently had a L BC AVG placed. Following discharge from the hospital Mr. Morales dialyzed at [facility] w/ Dr. Howell. He was readmitted to [facility] 07/25/20 - 08/04/20 for evaluation of febrile illness. Cr had improved to 3.5. Patient was nonoliguric and HD was held. Blood cultures were positive for Enterococcus faecalis. Antibiotic therapy was provided. Femoral THC was removed, US of AVG was negative for abscess/fluid collection, TTE and ALONDRA were negative for valvular vegetation. R percutaneous nephrostomy tube was removed 08/04/20 and patient was discharged to home. Mr. Morales completed his course of IV Daptomycin as an outpatient and had his midline catheter removed. Mr. Morales does have a Tyler catheter in place. He is scheduled to see [facility] 09/12/20 for cystoscopy w/ biopsy. Mr. Morales presented to the ED this morning for evaluation of dyspnea at rest. He did not tolerate CPAP therapy. He is now on O2 at 6 L /min NC. CXR reveals a moderate L pleural effusion w/ L lung base consolidation. Patient tested negative for COVID-19. He received 500 cc NS bolus in the ED for SBP 90 mmHg. Cr has risen to 4.5. Mr. Morales has been started on IV Zosyn and Daptomycin. Allergies Allergy/AdvReac Type Severity Reaction Status Date / Time lisinopril Allergy Unknown Unverified 08/25/20 09:28 ASPIRIN (IN DOSES LARGER AdvReac Intermediate N/V Uncoded 08/25/20 09:28 THAN 81MG) Home Medications Home Medications Medication Instructions Recorded Confirmed Type Creon 1 cap PO TIDM #0 05/22/15 08/25/20 History gabapentin 300 mg PO QAM #0 05/22/15 08/25/20 History grape seed extract 100 mg PO QPM #0 05/22/15 08/25/20 History levothyroxine 88 mcg PO QAM #0 05/22/15 08/25/20 History multivitamin with minerals [Men's 1 tab PO DAILY #0 05/22/15 08/25/20 History One Daily] atorvastatin [Lipitor] 20 mg PO QAM #0 tab 05/05/18 08/25/20 History metoprolol tartrate 25 mg PO BID 12/29/19 08/25/20 History amlodipine 10 mg PO QAM 06/22/20 08/25/20 History hydralazine 10 mg PO BID 06/22/20 08/25/20 History albuterol sulfate [Ventolin HFA] 2 puff INHALATION QID PRN 07/25/20 08/25/20 History budesonide-formoterol [Symbicort] 2 inh INHALATION HS PRN 07/25/20 08/25/20 History insulin asp prt-insulin aspart 16 unit SUBCUT AMPM 07/25/20 08/25/20 History [Novolog Mix 70-30FlexPen U-100] oxycodone-acetaminophen [Percocet] 1 tab PO Q4H PRN 07/25/20 08/25/20 History tamsulosin [Flomax] 0.4 mg PO DAILY 08/14/20 08/25/20 History tiotropium bromide 2 puff INHALATION DAILY 08/14/20 08/25/20 History acetaminophen 500 - 1,000 mg PO Q6H PRN 08/25/20 08/25/20 History cinnamon bark [Cinnamon] 500 mg PO DAILY 08/25/20 08/25/20 History cranberry 400 mg PO DAILY 08/25/20 08/25/20 History Patient History Medical History Acute renal failure on dialysis Agent [place] poisoning Chronic pancreatitis Elevated troponin GERD (gastroesophageal reflux disease) History of pacemaker Hyperlipidemia LDL goal <70 Hypertension Hypothyroidism (acquired) Insulin-requiring or dependent type II diabetes mellitus Morbid obesity Pancreatic insufficiency Peripheral neuropathy Smoker Surgical History History of permanent cardiac pacemaker placement Family History Other Family history non-contributory Social History Smoking Status: Former smoker Tobacco Type: Cigarettes Cigarettes Per Day: 15; Second Hand Exposure: No; Hx Alcohol Use: No Hx Substance Use: No Preferred Language: Uzbek Communication Ability: Effective Cleaner Industrial Required: No Beliefs That Will Affect Care: None marital status: Current Living Situation: Spouse Other Information That Helps Us Care for You: No Feels Safe at Home: Yes Safety Concerns: Feels Safe At This Time Assistive Devices: Denture - Upper and Walker Assistive Devices Comment: Only use the uppers Review of Systems Constitutional: + weakness; no fever Eyes: no problem reported Ear, Nose, Mouth, Throat: no problem reported Respiratory: + dyspnea Cardiovascular: no chest pain and no edema Gastrointestinal: no abdominal pain, no vomiting and no diarrhea/loose stools Genitourinary: no dysuria, no urinary hesitancy and no hematuria Musculoskeletal: no back pain Integumentary: no rash Neurologic: no confusion Physical Exam Constitutional: + ill appearing Eyes: PERRL, conjunctivae normal, anicteric sclerae ENMT: external ear and nose normal, oropharynx normal Neck: trachea midline, no thyromegaly Respiratory: no respiratory distress Cardiovascular: RRR, no murmur, no edema Gastrointestinal (Abdomen): normal bowel sounds, soft, nontender, no hepatosplenomegaly Musculoskeletal: Extremities: no cyanosis Skin: no rashes, warm and dry Neurologic: awake; not confused Results & Data ([facility]) Vital Signs (Past 12 Hours) Vital Signs Temp Pulse Pulse Resp BP BP Pulse Ox 08/25/20 14:16 71 24 92 08/25/20 13:32 37.3 C 68 16 123/64 92 08/25/20 12:48 37.3 C 67 67 20 124/65 91 08/25/20 12:01 72 24 112/68 93 08/25/20 11:30 73 22 109/56 L 92 08/25/20 11:00 73 21 98/63 L 96 08/25/20 10:30 71 23 94/46 L 98 08/25/20 10:00 72 26 H 123/69 99 08/25/20 09:57 84 25 H 108/63 99 08/25/20 09:30 74 27 H 108/63 100 08/25/20 09:00 78 29 H 100 08/25/20 08:53 82 26 H 96 08/25/20 08:48 86 86 31 H 98 08/25/20 08:45 37.5 C 82 20 118/96 88 L 08/25/20 08:30 77 26 H 97 08/25/20 08:28 78 28 H 118/96 95 Laboratory Results Laboratory Tests 08/25/20 08/25/20 08/25/20 09:07 09:07 09:07 WBC 21.82 H Hgb 10.9 L Hct 35.1 L Plt Count 369 Sodium 136 Potassium 4.8 Chloride 104 Carbon Dioxide 24 BUN 52 H Creatinine 4.56 H* Glucose 324 H* Albumin 2.2 L Procalcitonin 4.89 H Diagnostic Findings 08/25/20 CXR: 1. Cardiomegaly with pulmonary vascular congestion. 2. Small to moderate left pleural effusion with left lung base consolidation. PG Care Time/CCT Total # of Minutes Spent Total Time Spent with Patient: Total time spent is greater than 50% in coordination of care (as documented) at patient's floor/unit and/or counseling patient: Coding Level of Care Code 40695 Inpt Consult Level 5 Diagnoses Acute renal failure N17.9 CKD (chronic kidney disease) N18.9 LLL pneumonia J18.9 Pneumonia type: due to unspecified organism (1) LLL pneumonia Pneumonia type: due to unspecified organism Qualified Code(s): J18.9 - Pneumonia, unspecified organism
--- NOTE | 2020-08-25 14:49 | Pharmacy Report ---
Glycemic Control Consultation - Date of Service August 25, 2020 - Scope Scope: Glycemic Pharmacist consulted for glycemic control and to write orders per [facility] inpatient glycemic control protocol. - Objective Weight: 110 kg Accuchecks BSG (last 24hrs): 08/25/20 08/25/20 09:07 13:12 Glucose 324 H* POC Glucose 456 H* Laboratory Data (last 24hrs): 08/25/20 09:07 Potassium 4.8 Carbon Dioxide 24 Anion Gap 8.0 Creatinine 4.56 H* Est Cr Clr Drug Dosing 18.2 Beta-Hydroxybutyric Acd TNP - Recent Pertinent Medications Outpatient Anti-diabetic Regimen: * Novolog 16 units BID (AM and PM) * A1c = 8.6 % on 06/23/20 Risk Factors for Insulin Resistance: * Steroids: none * Infection: Dapto + Zosyn * Diet: T2DM - Assessment & Plan Assessment & Plan: ASSESSMENT: * 74 y/o M admitted for acute respiratory failure, JIMMY on top of CKD-stage 3. Patient is a type 2 diabetic managed at home on Novolog insulin BID. * During his recent admission in Jul 2020, he was on Lantus 20 units BID but his kidney function was better at the time compared to now. He was on 11 units BID in 06/2020. * Lantus 20 units x 1 dose was ordered in the ED which the nurse gave him on the floor ~1300. * Lunch BSG was 456 today. I ordered IV regular insulin bolus 10 units x1 dose for this. * Novolog started based on wt and moderate stress factor of 2. PLAN FOR INPATIENT GLYCEMIC CONTROL: * Basal insulin * Lantus 20 units SQ x1 dose this afternoon. * BID Lantus order on hold for now. Will re-assess in the AM. * Bolus insulin * NovoLog per scale ACHS or Q6hrs while NPO. Added 00 and 04 checks. * Goal Range: Low 120 mg/dL - High 160 mg/dL * Correction Factor: 20 mg/dL/unit * Nutritional / Prandial insulin per carb ratio of 1 unit per 7 grams CHO consumed * Please note that the plan above was derived based on current level of insulin resistance and hospital stress. These recommendations are appropriate for inpatient admission only. Plan of care upon discharge will need to be reassessed to avoid potential outpatient hypo/hyperglycemia. Thank you.
[2020-08-25] MEDS: PANCREAZE (LIPASE 10,500U) CAP PO SCH (17:07)
[2020-08-25] MEDS: PIPERACILLIN/TAZOBACTAM 3.375 GM in DEXTROSE 5% 100 ML IV SCH (17:19)
[2020-08-25] MEDS ORDERED: INSULIN REGULAR 250 UNITS in SODIUM CHLORIDE 0.9% 247.5 ML IV SCH (17:30)
[2020-08-25] MEDS ORDERED: INSULIN HUMAN REGULAR IV BOLUS 5 UNITS in SYRINGE 0 ML IV ONE (17:30)
[2020-08-25] MEDS: METOPROLOL TARTRATE 25 MG TAB PO SCH (20:12)
[2020-08-25] MEDS: HEPARIN SOD 5,000 UNIT/0.5 ML VIAL SQ SCH ×2 (20:12→20:15)
[2020-08-25] MEDS ORDERED: INSULIN GLARGINE SOLOSTAR 100 UNITS/ML 3 ML PEN SC SCH (21:00)
[2020-08-25 22:27] LABS: Appearance Urine Turbid (Clear); Bacteria Urine Automated Negative (Negative); Bilirubin Urine Negative (Negative); Blood Urine 3+ (Negative); Color Urine Orange; Epithelial Cell Urine Auto 0-5 /lpf (0-5); Glucose Urine UA Negative (Negative); Ketones Urine Negative (Negative); Leukocyte Esterase Urine 3+ (Negative); Nitrite Urine Negative (Negative); Protein Urine 3+ (Negative); Specific Gravity Urine 1.021 (1.000-1.030); Urobilinogen Urine Negative (Negative); WBC Urine Automated >30 /hpf (0-5); pH Urine 5.5 (4.5-7.5)
[2020-08-25 23:00] LABS: RBC Urine Automated >30 /hpf (0-4)
[2020-08-26] MEDS ORDERED: INSULIN ASPART 100 UNITS/ML 3 ML PEN SC SCH
[2020-08-26] MEDS: ALBUT/IPRATROP 3MG/0.5MG NEB 3 ML VIAL NEB SCH ×6 (02:59→23:41)
[2020-08-26] MEDS: PIPERACILLIN/TAZOBACTAM 3.375 GM in DEXTROSE 5% 100 ML IV SCH ×2 (03:52→15:56)
[2020-08-26] MEDS ORDERED: LEVOTHYROXINE SODIUM 88 MCG TABLET PO SCH (06:30)
[2020-08-26] MEDS: PANCREAZE (LIPASE 10,500U) CAP PO SCH ×3 (08:58→17:18)
[2020-08-26] MEDS: TAMSULOSIN HCL 0.4 MG CAP PO SCH (08:58)
[2020-08-26] MEDS: HEPARIN SOD 5,000 UNIT/0.5 ML VIAL SQ SCH ×3 (08:59→19:38)
[2020-08-26] MEDS: METOPROLOL TARTRATE 25 MG TAB PO SCH ×2 (08:59→19:37)
[2020-08-26] MEDS: NICOTINE 14 MG/24 HR PATCH TD SCH (08:59)
[2020-08-26] MEDS: GABAPENTIN 300 MG CAP PO SCH (09:00)
[2020-08-26] MEDS: INSULIN ASPART 100 UNITS/ML 3 ML PEN SC SCH ×4 (09:20→20:31)
[2020-08-26 09:31] LABS: Estimated Average Glucose 143 mg/dl; Hemoglobin A1C 6.6 % (4.5-5.6)
[2020-08-26 10:03] LABS: BUN Creatinine Ratio 13.1 (10-20); Calcium 8.7 mg/dl (8.5-10.1); Creatinine Clr Calc Pharmacy 15.2 ml/min; Est GFR (African American) 11.1; Est GFR (Non-African American) 9.6; Potassium 4.7 mmol/L (3.5-5.1)
--- NOTE | 2020-08-26 10:36 | Nephrology Progress Note ---
Date of Service August 26, 2020 Assessment & Plan (1) Acute renal failure: * JIMMY on CKD due to SIRS: LLL pneumonia and relative hypotension * BP has stabilized but patient remains in renal injury phase. Cr has risen to 5.48 this am. Patient has gomez catheter in place. He was oliguric yesterday but volume status and electrolyte balance remain acceptable. 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 Morales was seen & examined in his hospital room this morning. He was breathing comfortably on O2 at 2 L/min NC. He denied fever, dyspnea or uremic symptoms Review of Systems Constitutional: + weakness; no fever Eyes: no problem reported Ear, Nose, Mouth, Throat: no problem reported Respiratory: + dyspnea Cardiovascular: no chest pain and no edema Gastrointestinal: no abdominal pain, no vomiting and no diarrhea/loose stools Genitourinary: no hematuria Musculoskeletal: no back pain Integumentary: no rash Neurologic: no dizziness and no confusion Physical Exam Constitutional: not in distress Eyes: PERRL, conjunctivae normal, anicteric sclerae ENMT: external ear and nose normal, oropharynx normal Neck: trachea midline, no thyromegaly Respiratory: no respiratory distress Cardiovascular: RRR, no murmur, no edema Gastrointestinal (Abdomen): normal bowel sounds, soft, nontender, no hepatosplenomegaly Musculoskeletal: Extremities: no cyanosis Skin: no rashes, warm and dry Neurologic: awake; not confused Results & Data ([facility]) Vital Signs (Past 12 Hours) Vital Signs Temp Pulse Pulse Pulse Pulse Resp BP 08/26/20 08:26 08/26/20 08:00 36.8 C 60 18 136/63 08/26/20 07:45 61 08/26/20 07:43 08/26/20 07:40 60 08/26/20 07:39 60 08/26/20 07:02 61 20 08/26/20 03:00 36.8 C 61 20 129/68 08/25/20 23:49 61 08/25/20 23:45 36.9 C 61 20 138/66 08/25/20 23:18 61 18 Pulse Ox Pulse Ox 08/26/20 08:26 93 08/26/20 08:00 91 08/26/20 07:45 08/26/20 07:43 91 08/26/20 07:40 08/26/20 07:39 08/26/20 07:02 91 08/26/20 03:00 91 08/25/20 23:49 08/25/20 23:45 93 08/25/20 23:18 93 Laboratory Tests 08/25/20 08/25/20 08/26/20 09:07 22:07 08:52 WBC 21.82 H Hgb 10.9 L Hct 35.1 L Plt Count 369 Sodium 134 L Potassium 4.7 Chloride 103 Carbon Dioxide 24 BUN 72 H Creatinine 5.48 H* D Glucose 201 H Urine Color [place] Urine Appearance Turbid A Ur Specific [place] 1.021 Urine Protein 3+ H Urine Glucose (UA) Negative Urine Blood 3+ H Ur Leukocyte Esterase 3+ H Urine WBC (Auto) >30 H Urine RBC (Auto) >30 H PG Care Time/CCT Total # of Minutes Spent Total Time Spent with Patient: Total time spent is greater than 50% in coordination of care (as documented) at patient's floor/unit and/or counseling patient: Coding Level of Care Code 04861 Subseq Hosp Care Lvl 3 Diagnoses Acute renal failure N17.9 CKD (chronic kidney disease) N18.9 LLL pneumonia J18.9 Pneumonia type: due to unspecified organism (1) LLL pneumonia Pneumonia type: due to unspecified organism Qualified Code(s): J18.9 - Pneumonia, unspecified organism
[2020-08-26] MEDS ORDERED: INSULIN GLARGINE SOLOSTAR 100 UNITS/ML 3 ML PEN SC ONE (12:30)
--- NOTE | 2020-08-26 14:46 | Pharmacy Report ---
Pharmacy Glycemic Short Note 2 - Date of Service August 26, 2020 - Glycemic Short BSG Results (Last 24 hours): 08/25/20 08/25/20 08/25/20 16:20 16:26 17:47 Glucose POC Glucose 450 H* 482 H* 502 H* 08/25/20 08/25/20 08/25/20 19:00 20:00 21:03 Glucose POC Glucose 449 H* 424 H* 404 H* 08/25/20 08/25/20 08/26/20 21:58 22:48 00:03 Glucose POC Glucose 360 H* 327 H* 232 H 08/26/20 08/26/20 08/26/20 00:53 01:54 02:54 Glucose POC Glucose 212 H 132 H 93 08/26/20 08/26/20 08/26/20 03:51 05:03 06:00 Glucose POC Glucose 93 130 H 156 H 08/26/20 08/26/20 08/26/20 07:42 08:30 08:52 Glucose 201 H POC Glucose 170 H 202 H 08/26/20 08/26/20 08/26/20 09:36 11:34 12:33 Glucose POC Glucose 210 H 140 H 98 08/26/20 14:06 Glucose POC Glucose 73 ASSESSMENT: 08/26: * Patient continuing on insulin drip this AM, had been paused briefly this AM, then resumed at 3 units/hr * BSGs this AM still in the 200s, continue drip and CR * Lunch BSGs trending down - plan to loosen CR / added 25 units of basal insulin PLAN FOR INPATIENT GLYCEMIC CONTROL: * Basal insulin * Lantus 25 units x 1 - overlap with drip * Bolus insulin - start after drip dc * NovoLog per scale ACHS or Q6hrs while NPO. Added 00 and 04 checks. * Goal Range: Low 120 mg/dL - High 160 mg/dL * Correction Factor: 25 mg/dL/unit * Nutritional / Prandial insulin per carb ratio of 1 unit per 8 grams CHO consumed * Please note that the plan above was derived based on current level of insulin resistance and hospital stress. These recommendations are appropriate for inpatient admission only. Plan of care upon discharge will need to be reassessed to avoid potential outpatient hypo/hyperglycemia. Thank you.
--- NOTE | 2020-08-26 16:35 | Hospitalist Progress Note ---
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 Initial presentation was profound weakness and shortness of breath, could be COPD but with elevated troponin will also consider silent angina and trend his trops, also consider endocarditis given previous VRE Bacteremia just d/c 08/04/20, he did have ID eval and a ALONDRA without vegetations and have his femoral dialysis cath pulled which was thought to be the source of infection, He does not have murmur or peripheral stigmata of endocarditis at this time, will check ESR and additional Blood cultures. Will need 2 step prior to d/c (2) Elevated troponin: Pt without clear cut angina, but does have risk factors, will trend, did have 2 echos last admission( one that was ALONDRA) with preserved EF, continuing metoprolol holding hydralazine and amlodipine due to lower blood pressure Trop 0.074 on admission and essentially unchanged x2 after admission Trop 12/29/19 at 0.094, likely chronically elevated in the setting of CKD IV (3) COPD (chronic obstructive pulmonary disease): will be continued on iv steroids and duonebs, did check abg PT is slightly low but looks to be metabolic and not respiratory, (4) Chronic pancreatitis: has no complaints of abd pain or diarrhea, will continue creon (5) Insulin-requiring or dependent type II diabetes mellitus: Pt did not respond to basal bolus insulin, was transitioned to iv insulin gtt A1c 6.6 (6) Hypothyroidism (acquired): synthroid 88 mcg [facility], however states this was not started yet Will changed to higher dose (7) CKD (chronic kidney disease): Pt has CKD 4, will consult Dr Daniels, pt may have the need to progress to [facility] Very little urine in ED, monitor with IVF (8) Smoker: will offer nicotine patch (9) DVT prophylaxis: heparin sc bid Pt states that [facility] to get him [facility] for a wheelchair for use when away from home (10) Abnormal finding on urinalysis: 3+ leuk est, neg nitrites, yeast noted Urine cx for less than 1K on prelim, await final Current abx will cover Admission and Anticipated Discharge Date Admission Date: August 25, 2020 Subjective Pt states he is no longer SOB at rest, but has not been OOB yet today. He states he has tried to get home O2 in the past, but was denied after what he describes as a 2 step. Mild nausea this AM, but able to tolerate PO and feels he ate without issue. Pt states he always has LE swelling, and this is at baseline. Pt denies fever, chest pain, abd pain, n/v/c/d, LE pain. Review of Systems Review of Systems: Pertinent positives and negatives reviewed in HPI--all others negative Physical Exam Constitutional: WD/WN, vitals as above Eyes: normal visual braga by confrontation and + anicteric sclerae Neck: normal visual inspection and trachea midline Respiratory: normal respiratory effort, lungs clear to auscultation Cardiovascular: Rate/Rhythm: regular rate and regular rhythm Gastrointestinal (Abdomen): Inspection/Auscultation: abdomen not distended Percussion/Palpation: abdomen soft; abdomen nontender Musculoskeletal: Head/Neck/Chest: normocephalic and head atraumatic negative for edema, peripheral pulses intact Skin: no rashes, warm and dry Neurologic: awake; not confused Speech / Cognition: normal speech Psychiatric: A+Ox3, euthymic affect Results & Data Results & Data ([facility]) Vital Signs (Past 12 Hours) Vital Signs Temp Pulse Pulse Pulse Resp BP Pulse Ox 08/26/20 16:00 36.7 C 60 60 20 121/61 90 08/26/20 15:10 60 20 91 08/26/20 12:00 36.9 C 60 20 111/62 90 08/26/20 11:06 82 20 93 08/26/20 08:26 08/26/20 08:00 36.8 C 60 18 136/63 91 08/26/20 07:45 61 08/26/20 07:43 08/26/20 07:40 60 08/26/20 07:39 60 08/26/20 07:02 61 20 91 Pulse Ox 08/26/20 16:00 08/26/20 15:10 08/26/20 12:00 08/26/20 11:06 08/26/20 08:26 93 08/26/20 08:00 08/26/20 07:45 08/26/20 07:43 91 08/26/20 07:40 08/26/20 07:39 08/26/20 07:02 PG Care Time/CCT Total # of Minutes Spent Total Time Spent with Patient: Total time spent is greater than 50% in coordination of care (as documented) at patient's floor/unit and/or counseling patient: Coding Level of Care Code 59669 Subseq Hosp Care Lvl 3 Diagnoses LLL pneumonia J18.9 Pneumonia type: due to unspecified organism Elevated troponin R77.8 COPD (chronic obstructive pulmonary disease) J44.9 COPD type: unspecified COPD Chronic pancreatitis K86.1 Pancreatitis type: unspecified pancreatitis type Insulin-requiring or dependent type II diabetes mellitus E11.9; Z79.4 Hypothyroidism (acquired) E03.9 CKD (chronic kidney disease) N18.9 Smoker F17.200 DVT prophylaxis Z29.9 Abnormal finding on urinalysis R82.90 (1) LLL pneumonia Pneumonia type: due to unspecified organism Qualified Code(s): J18.9 - Pneumonia, unspecified organism (2) COPD (chronic obstructive pulmonary disease) COPD type: unspecified COPD Qualified Code(s): J44.9 - Chronic obstructive pulmonary disease, unspecified (3) Chronic pancreatitis Pancreatitis type: unspecified pancreatitis type Qualified Code(s): K86.1 - Other chronic pancreatitis
[2020-08-26] MEDS ORDERED: Nursing to Pharmacy Communication SCH (21:15)
[2020-08-26] MEDS: ONDANSETRON INJ 2 MG/ML 2 ML VIAL IV PRN (21:20)
[2020-08-27] MEDS ORDERED: INSULIN ASPART 100 UNITS/ML 3 ML PEN SC SCH ×2
[2020-08-27] MEDS: ALBUT/IPRATROP 3MG/0.5MG NEB 3 ML VIAL NEB SCH ×6 (03:12→23:13)
[2020-08-27] MEDS: PIPERACILLIN/TAZOBACTAM 3.375 GM in DEXTROSE 5% 100 ML IV SCH ×2 (04:01→18:27)
[2020-08-27] MEDS: LEVOTHYROXINE SODIUM 100 MCG TABLET PO SCH (06:09)
[2020-08-27 06:26] LABS: Hematocrit (blood only) 26.7 % (42-52); Hemoglobin 8.5 g/dL (14.0-18.0); Mean Corpuscular Hemoglobin 29.8 pg (25-34); Mean Corpuscular Hgb Conc 31.8 g/dL (32-36); Mean Corpuscular Volume 93.7 fL (80-100); Platelet Count 332 K/uL (130-400); RDW Coefficient of Variation 16.3 % (11.5-14.5); RDW Standard Deviation 56.3 fL (36.4-46.3); Red Blood Count 2.85 M/uL (4.7-6.1); White Blood Count 17.59 K/uL (4.8-10.8)
[2020-08-27 07:07] LABS: BUN Creatinine Ratio 14.1 (10-20); Calcium 8.5 mg/dl (8.5-10.1); Creatinine Clr Calc Pharmacy 13.3 ml/min; Est GFR (African American) 9.4; Est GFR (Non-African American) 8.1
--- NOTE | 2020-08-27 07:38 | XRay Report ---
XR chest 1V portable CLINICAL HISTORY: Hypoxemic Respiratory Failure COMPARISON STUDY: Chest CT July 25, 2020. Chest radiograph August 25, 2020. FINDINGS: Dual lead left subclavian pacemaker is in place. Cardiomegaly is noted. Elevation of the le ft hemidiaphragm is noted. Small to moderate left pleural effusion has increased. There is associated left basilar opacity. Interstitial thickening represents mild pulmonary edema. This has increased. N o pneumothorax. IMPRESSION: 1. Increase in pulmonary edema. 2. Increase in a small to moderate left pleural effusion with left basilar opacity that could reflect atelectasis or consolidation. ACT 112: Negative or not required by law. Electronically signed by: Christian Brito M.D. 08/27/2020 7:36 AM
[2020-08-27] MEDS: PANCREAZE (LIPASE 10,500U) CAP PO SCH ×3 (08:19→18:30)
[2020-08-27] MEDS: METOPROLOL TARTRATE 25 MG TAB PO SCH ×2 (08:20→20:28)
[2020-08-27] MEDS: TAMSULOSIN HCL 0.4 MG CAP PO SCH (08:20)
[2020-08-27] MEDS: GABAPENTIN 300 MG CAP PO SCH (08:20)
[2020-08-27] MEDS: NICOTINE 14 MG/24 HR PATCH TD SCH (08:24)
[2020-08-27] MEDS: INSULIN ASPART 100 UNITS/ML 3 ML PEN SC SCH ×3 (08:28→20:05)
[2020-08-27] MEDS: DAPTOmycin 525 MG in SYRINGE 0 ML IV SCH (08:36)
[2020-08-27] MEDS: HEPARIN SOD 5,000 UNIT/0.5 ML VIAL SQ SCH ×2 (08:41→20:46)
[2020-08-27] MEDS ORDERED: INSULIN GLARGINE SOLOSTAR 100 UNITS/ML 3 ML PEN SC SCH (09:00)
--- NOTE | 2020-08-27 10:07 | Pharmacy Report ---
Pharmacy Glycemic Short Note 2 - Date of Service August 27, 2020 - Glycemic Short BSG Results (Last 24 hours): 08/26/20 08/26/20 08/26/20 11:34 12:33 14:06 Glucose POC Glucose 140 H 98 73 08/26/20 08/26/20 08/26/20 15:05 16:19 20:14 Glucose POC Glucose 90 108 H 215 H 08/27/20 08/27/20 05:53 07:20 Glucose 181 H POC Glucose 196 H ASSESSMENT: 08/27: * Patient received total of ~56 units of SQ insulin yesterday, of which 25 were basal insulin (plus insulin gtt for part of day) * Fasting BSG 181 mg/dL - increase to 30 units of basal insulin * Tighten CF/CR this AM 08/26: * Patient continuing on insulin drip this AM, had been paused briefly this AM, then resumed at 3 units/hr * BSGs this AM still in the 200s, continue drip and CR * Lunch BSGs trending down - plan to loosen CR / added 25 units of basal insulin PLAN FOR INPATIENT GLYCEMIC CONTROL: * Basal insulin * Lantus 25-30 units daily based upon BSG value * Bolus insulin * NovoLog per scale ACHS or Q6hrs while NPO. Added 00 and 04 checks. * Goal Range: Low 120 mg/dL - High 160 mg/dL * Correction Factor: 20 mg/dL/unit * Nutritional / Prandial insulin per carb ratio of 1 unit per 7 grams CHO consumed * Please note that the plan above was derived based on current level of insulin resistance and hospital stress. These recommendations are appropriate for inpatient admission only. Plan of care upon discharge will need to be reassessed to avoid potential outpatient hypo/hyperglycemia. Thank you.
[2020-08-27] MEDS ORDERED: BUMETANIDE 4 MG in SYRINGE 0 ML IV ONE (12:00)
[2020-08-27] MEDS ORDERED: LIDOCAINE/PRILOCAINE 2.5% EA CRM EXT STA (12:35)
--- NOTE | 2020-08-27 13:00 | Nephrology Progress Note ---
Date of Service August 27, 2020 Assessment & Plan (1) ESRD needing dialysis: Johnny has PMH of DM, HTN, CAD, h/o tobacco abuse, history of [place] exposure, bradycardia requiring pacemaker placement, and chronic kidney disease. Palomo was admitted to [facility] from June 22- with decreased urine output and dysuria. Imaging revealed atrophic left kidney and moderate hydronephrosis on the right. Cystoscopy with stent placement was unsuccessful and transferred to [facility] for percutaneous nephrostomy tube placement. Unfortunately, renal function worsened requiring initiation of dialysis and he has been maintained on TTS HD at [facility] under the care of Dr. Howell. There were two attempts at R IJ TDC placement but neither functioned well. The Left IJ was avoided due to pacer placement. A left femoral HD catheter was complicated by bacteremia. Dr. Bonilla then placed an AV graft in the left arm on 07/21/20. He was readmitted to [facility] 07/25/20 - 08/04/20 for evaluation of febrile illness. Cr had improved to 3.5, was nonoliguric and HD was held. Blood cultures were p ositive for Enterococcus faecalis, femoral dialysis catheter was removed and he completed a course of daptomycin via midline which was removed as an outpatient.. R percutaneous nephrostomy tube was removed on 08/04/20. He again presented to hospital on 08/25/2020 with progressive shortness of breath and decreased urine output. Creatinine was found to be 4.5 on admission which has been rapidly worsening and 6.3 this morning. Remained oliguric with significant volume overload and respiratory distress this morning. -- Will give Bumex 4 milligram IV x1 dose stat -- plan for emergency dialysis with 2K bath and low blood flow, aim for 4 hours dialysis with 2 liters UF. will try to use the AV graft, graft does not work then we may need to place a temporary dialysis catheter. -- dose medications for GFR less than for less than 10, right arm nephrology precaution, avoid IV fluid, renal diet. -- schedule for renal ultrasound to exclude the possibility for postrenal obstruction as R percutaneous nephrostomy tube was removed on 08/04/20. -- Epogen 81315 units x1 dose today during dialysis, will check iron study. will follow (2) Acute respiratory failure with hypoxia: (3) Oliguria: Admission and Anticipated Discharge Date Admission Date: August 25, 2020 Shira Turner was seen and examined in his room this morning with his Mikayla at bedside. Has been having shortness of breath which has been progressively worsening, currently on 5 liters nasal cannula with oxygen saturation 92. Urine output has been low for last almost 1 week and last 24 hour he made only 250 mL of urine. Renal function continues to worsen, creatinine to 6.3 and BUN 88, potassium 5. Review of Systems Review of Systems: All systems reviewed & are unremarkable except as noted in HPI & below Physical Exam Constitutional: WD/WN, vitals as above + acute distress and + ill appearing Respiratory: + respiratory distress Auscultation: + crackles and + wheezes Cardiovascular: RRR, no murmur, no edema Skin: no rashes, warm and dry Neurologic: awake; no focal motor deficits and not confused Psychiatric: Orientation: alert and oriented x 3 Results & Data ([facility]) Vital Signs (Past 12 Hours) Vital Signs Temp Pulse Pulse Resp BP Pulse Ox 08/27/20 11:03 60 20 92 08/27/20 07:09 60 22 95 08/27/20 07:05 60 22 95 08/27/20 07:00 36.8 C 60 18 103/65 95 08/27/20 05:50 62 24 94 08/27/20 03:12 60 26 H 90 08/27/20 03:00 36.6 C 60 20 147/63 H 90 PG Care Time/CCT Total # of Minutes Spent Total Time Spent with Patient: Total time spent is greater than 50% in coordination of care (as documented) at patient's floor/unit and/or counseling patient: Coding Level of Care Code 71846 Subseq Hosp Care Lvl 3 Diagnoses ESRD needing dialysis N18.6; Z99.2 Acute respiratory failure with hypoxia J96.01 Oliguria R34
[2020-08-27 13:30] LABS: Hepatitis B Surface Ab Quant < 3.10 mIU/mL (>or=10mIU/mL Immune); Hepatitis B Surface Antibody Non-Immune
[2020-08-27] MEDS ORDERED: EPOETIN ALFA 20,000 UNITS/ML VIAL IV ONE (13:30)
[2020-08-27 13:41] LABS: Hepatitis B Surface Antigen Neg (Neg)
[2020-08-27] MEDS ORDERED: MAGNESIUM HYDROXIDE SUSP 30 ML UDC PO ONE (16:26)
[2020-08-27] MEDS ORDERED: MAGNESIUM HYDROXIDE SUSP 30 ML UDC PO PRN (16:26)
--- NOTE | 2020-08-27 16:41 | Hospitalist Progress Note ---
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 Initial presentation was profound weakness and shortness of breath, could be COPD but with elevated troponin will also consider silent angina and trend his trops, also consider endocarditis given previous VRE Bacteremia just d/c 08/04/20, he did have ID eval and a ALONDRA without vegetations and have his femoral dialysis cath pulled which was thought to be the source of infection, He does not have murmur or peripheral stigmata of endocarditis at this time, will check ESR and additional Blood cultures. Will need 2 step prior to d/c (2) Elevated troponin: Pt without clear cut angina, but does have risk factors, will trend, did have 2 echos last admission( one that was ALONDRA) with preserved EF, continuing metoprolol holding hydralazine and amlodipine due to lower blood pressure Trop 0.074 on admission and essentially unchanged x2 after admission Trop 12/29/19 at 0.094, likely chronically elevated in the setting of CKD IV (3) COPD (chronic obstructive pulmonary disease): will be continued on duonebs, did check abg PT is slightly low but looks to be metabolic and not respiratory, (4) Chronic pancreatitis: has no complaints of abd pain or diarrhea, will continue creon (5) Insulin-requiring or dependent type II diabetes mellitus: Pt did not respond to basal bolus insulin, was transitioned to iv insulin gtt A1c 6.6 (6) Hypothyroidism (acquired): synthroid 88 mcg was [facility], however states this was not started yet Dose adjusted 08/27 (7) CKD (chronic kidney disease): Pt has CKD 4, will consult Dr Daniels, pt may have the need to progress to [facility] Very little urine in ED, monitor with IVF HD on 08/27 (8) Smoker: will offer nicotine patch (9) DVT prophylaxis: heparin sc bid Pt states that [facility] to get him [facility] for a [facility] for use when away from home Wound care nursing eval pending MOM,hoa (10) Abnormal finding on urinalysis: 3+ leuk est, neg nitrites, yeast noted Urine cx for less than 1K on prelim, await final Current abx will cover Admission and Anticipated Discharge Date Admission Date: August 25, 2020 Subjective Pt is on HD during our discussion. He states he feels pretty wiped out overall, but that is usual during HD. Nursing states that pt's color and overall appearance this AM was "not good", but that he actually looks better at this time. He was having some mild SOB this AM per nursing. Pt states this is resolved now. He had a face mask on this AM and this helpednegative for edema, peripheral pulses intact swelling is better. States he did not have much of an appetite during lunch. He has not had a bowel movement in 4 days. He was given something overnight, but this did not help. He states that he has pain in his buttocks when he stays in one position too long. No open wounds, but this has been getting worse. Review of Systems Review of Systems: Pertinent positives and negatives reviewed in HPI--all others negative Physical Exam Constitutional: WD/WN, vitals as above Eyes: normal visual braga by confrontation and + anicteric sclerae Neck: normal visual inspection and trachea midline Respiratory: Auscultation: + crackles (LLL improving) Cardiovascular: Rate/Rhythm: regular rate and regular rhythm Extremities: + edema (1+ b/l, improving) Gastrointestinal (Abdomen): Inspection/Auscultation: abdomen not distended Percussion/Palpation: abdomen soft; abdomen nontender Musculoskeletal: Head/Neck/Chest: normocephalic and head atraumatic Skin: no rashes, warm and dry Neurologic: awake; not confused Speech / Cognition: normal speech Psychiatric: A+Ox3, euthymic affect Results & Data Results & Data ([facility]) Vital Signs (Past 12 Hours) Vital Signs Temp Pulse Pulse Pulse Resp BP BP 08/27/20 16:20 75 128/64 08/27/20 16:00 77 97/54 L 08/27/20 15:40 70 100/67 08/27/20 15:20 61 123/64 08/27/20 15:00 69 103/60 08/27/20 14:40 66 121/67 08/27/20 14:20 67 107/58 L 08/27/20 14:00 122 H 160/126 H 08/27/20 13:42 36.8 C 60 60 120/63 08/27/20 13:01 36.8 C 60 20 120/69 08/27/20 11:03 60 20 08/27/20 07:09 60 22 08/27/20 07:05 60 22 08/27/20 07:00 36.8 C 60 18 103/65 08/27/20 05:50 62 24 Pulse Ox 08/27/20 16:20 08/27/20 16:00 08/27/20 15:40 08/27/20 15:20 08/27/20 15:00 08/27/20 14:40 08/27/20 14:20 08/27/20 14:00 08/27/20 13:42 08/27/20 13:01 90 08/27/20 11:03 92 08/27/20 07:09 95 08/27/20 07:05 95 08/27/20 07:00 95 08/27/20 05:50 94 PG Care Time/CCT Total # of Minutes Spent Total Time Spent with Patient: Total time spent is greater than 50% in coordination of care (as documented) at patient's floor/unit and/or counseling patient: Coding Level of Care Code 73417 Subseq Hosp Care Lvl 3 Diagnoses LLL pneumonia J18.9 Pneumonia type: due to unspecified organism Elevated troponin R77.8 COPD (chronic obstructive pulmonary disease) J44.9 COPD type: unspecified COPD Chronic pancreatitis K86.1 Pancreatitis type: unspecified pancreatitis type Insulin-requiring or dependent type II diabetes mellitus E11.9; Z79.4 Hypothyroidism (acquired) E03.9 CKD (chronic kidney disease) N18.9 Smoker F17.200 DVT prophylaxis Z29.9 Abnormal finding on urinalysis R82.90 (1) Chronic pancreatitis Pancreatitis type: unspecified pancreatitis type Qualified Code(s): K86.1 - Other chronic pancreatitis (2) COPD (chronic obstructive pulmonary disease) COPD type: unspecified COPD Qualified Code(s): J44.9 - Chronic obstructive pulmonary disease, unspecified (3) LLL pneumonia Pneumonia type: due to unspecified organism Qualified Code(s): J18.9 - Pneumonia, unspecified organism
[2020-08-27] MEDS: DEXTROSE 50% 50 ML SYRINGE IV PRN (18:24)
[2020-08-27] MEDS: SENNA 8.6 MG TAB PO SCH (18:30)
[2020-08-27] MEDS: CARBOHYDRATES FOR HYPOGLYCEMIA PO PRN ×3 (20:06→20:38)
[2020-08-28] MEDS: INSULIN ASPART 100 UNITS/ML 3 ML PEN SC SCH ×6 (00:40→21:19)
[2020-08-28] MEDS: ALBUT/IPRATROP 3MG/0.5MG NEB 3 ML VIAL NEB SCH ×6 (02:35→22:23)
--- NOTE | 2020-08-28 02:56 | Communication Note ---
Date of Service: August 28, 2020 Notified overnight that one of pt's blood cultures was growing yeast. A one time dose of Fluconazole 200mg was given. Resident Activity Tracking Resident Involvement: [employer] Employee Coverage Note Care Provided: Adult Hospital Medicine
[2020-08-28] MEDS ORDERED: FLUCONAZOLE 200 MG/100 ML BAG IV ONE (03:15)
[2020-08-28] MEDS: PIPERACILLIN/TAZOBACTAM 3.375 GM in DEXTROSE 5% 100 ML IV SCH (03:43)
[2020-08-28] MEDS: DEXTROSE 50% 50 ML SYRINGE IV PRN (03:52)
[2020-08-28 07:10] LABS: BUN Creatinine Ratio 10.2 (10-20); Calcium 8.4 mg/dl (8.5-10.1); Creatinine Clr Calc Pharmacy 17.9 ml/min; Est GFR (African American) 13.2; Est GFR (Non-African American) 11.4; Ferritin 275.9 ng/ml (8-388); Potassium 4.7 mmol/L (3.5-5.1)
[2020-08-28] MEDS: LEVOTHYROXINE SODIUM 100 MCG TABLET PO SCH (07:37)
[2020-08-28] MEDS: PANCREAZE (LIPASE 10,500U) CAP PO SCH ×3 (07:50→17:19)
[2020-08-28] MEDS: HEPARIN SOD 5,000 UNIT/0.5 ML VIAL SQ SCH ×2 (07:51→21:18)
[2020-08-28] MEDS: TAMSULOSIN HCL 0.4 MG CAP PO SCH (07:51)
[2020-08-28] MEDS: GABAPENTIN 300 MG CAP PO SCH (07:51)
[2020-08-28] MEDS: METOPROLOL TARTRATE 25 MG TAB PO SCH ×2 (07:51→21:45)
[2020-08-28] MEDS: SENNA 8.6 MG TAB PO SCH (07:52)
[2020-08-28] MEDS: NICOTINE 14 MG/24 HR PATCH TD SCH (07:52)
[2020-08-28] MEDS ORDERED: INSULIN GLARGINE SOLOSTAR 100 UNITS/ML 3 ML PEN SC SCH ×2 (09:00)
[2020-08-28] MEDS ORDERED: BUMETANIDE 4 MG in SYRINGE 0 ML IV ONE (09:45)
[2020-08-28] MEDS ORDERED: IRON SUCROSE 200 MG in 0.9 % SODIUM CHLORIDE 100 ML IV ONE (10:00)
--- NOTE | 2020-08-28 10:03 | Ultrasound Report ---
RENAL ULTRASOUND HISTORY: Hydronephrosis COMPARISON: Abdomen and pelvis CT 07/25/2020. Renal ultrasound 07/31/2020. FINDINGS: Right kidney: 11.6 cm. [id number] right-sided hydronephrosis, unchanged. Kidney is not well vis ualized due to the patient's body habitus. Normal corticomedullary differentiation and cortical thick ness. Left kidney: Not visualized due to overlying bowel. Bladder: Decompressed by Tyler catheter. IMPRESSION: 1. No change in the [id number] right-sided hydronephrosis. 2. The left kidney was not identified. ACT 112: Negative or not required by law. Electronically signed by: Joseph Boston M.D. 08/28/2020 10:01 AM
--- NOTE | 2020-08-28 11:46 | Nephrology Progress Note ---
Date of Service August 28, 2020 Assessment & Plan (1) ESRD needing dialysis: Johnny has PMH of DM, HTN, CAD, h/o tobacco abuse, history of Agent [place] exposure, bradycardia requiring pacemaker placement, and chronic kidney disease. Palomo was admitted to [facility] from June 22- with decreased urine output and dysuria. Imaging revealed atrophic left kidney and moderate hydronephrosis on the right. Cystoscopy with stent placement was unsuccessful and transferred to [facility] for percutaneous nephrostomy tube placement. Unfortunately, renal function worsened requiring initiation of dialysis and he has been maintained on TTS HD at [facility] under the care of Dr. Howell. There were two attempts at R IJ TDC placement but neither functioned well. The Left IJ was avoided due to pacer placement. A left femoral HD catheter was complicated by bacteremia. Dr. Bonilla then placed an AV graft in the left arm on 07/21/20. He was readmitted to [facility] 07/25/20 - 08/04/20 for evaluation of febrile illness. Cr had improved to 3.5, was nonoliguric and HD was held. Blood cultures were p ositive for Enterococcus faecalis, femoral dialysis catheter was removed and he completed a course of daptomycin via midline which was removed as an outpatient.. R percutaneous nephrostomy tube was removed on 08/04/20. He again presented to hospital on 08/25/2020 with progressive shortness of breath and decreased urine output. Hemodialysis was resumed on 08/27/2020 as renal function progressively worsened with creatinine above 6, oligo anuria with significant volume overload and respiratory distress. -- tolerated dialysis yesterday, av graft function well. Had 2 L UF. -- Will give Bumex 4 milligram IV x1 dose today -- plan for dialysis tomorrow for 4 hours, aim for 3 L UF. -- dose medications for GFR less than for less than 10, right arm nephrology precaution, avoid IV fluid, renal diet. -- Epogen 77648 units x1 dose given on 08/27/2020 -- start on Venofer 200 mg daily for 5 doses. -- set up out pt dialysis per pts preferences will follow (2) Acute respiratory failure with hypoxia: (3) Oliguria: Admission and Anticipated Discharge Date Admission Date: August 25, 2020 Subjective Johnny was seen and examined in his room this morning with his Mikayla at bedside. Has been feeling better, shortness of Breath improved after 2 L UF yesterday. Urine output remains poor, did not respond much to high-dose diuretics. Electrolyte acceptable. Blood pressure well controlled. Review of Systems Review of Systems: All systems reviewed & are unremarkable except as noted in HPI & below Physical Exam Constitutional: WD/WN, vitals as above Respiratory: + respiratory distress Auscultation: + crackles and + wheezes Cardiovascular: RRR, no murmur, no edema Skin: no rashes, warm and dry Neurologic: awake; no focal motor deficits and not confused Psychiatric: Orientation: alert and oriented x 3 Results & Data ([facility]) Vital Signs (Past 12 Hours) Vital Signs Temp Pulse Resp BP Pulse Ox 08/28/20 11:02 20 94 08/28/20 07:49 36.8 C 59 L 20 139/68 90 08/28/20 07:09 61 20 93 08/28/20 02:59 37 C 61 20 139/70 92 08/28/20 02:37 61 20 91 PG Care Time/CCT Total # of Minutes Spent Total Time Spent with Patient: Total time spent is greater than 50% in coordination of care (as documented) at patient's floor/unit and/or counseling patient: Coding Level of Care Code 78176 Subseq Hosp Care Lvl 3 Diagnoses ESRD needing dialysis N18.6; Z99.2 Acute respiratory failure with hypoxia J96.01 Oliguria R34
[2020-08-28] MEDS ORDERED: MAGNESIUM HYDROXIDE SUSP 30 ML UDC PO SCH (12:00)
[2020-08-28] MEDS: POLYETHYLENE (MIRALAX) 17 GM PACK PO SCH ×3 (12:31→23:38)
--- NOTE | 2020-08-28 15:08 | Pharmacy Report ---
Pharmacy Glycemic Short Note 2 - Date of Service August 28, 2020 - Glycemic Short BSG Results (Last 24 hours): 08/27/20 08/27/20 08/27/20 16:06 16:45 18:19 Glucose POC Glucose 83 80 43 L* 08/27/20 08/27/20 08/27/20 18:20 18:39 19:59 Glucose POC Glucose 47 L* 125 H 55 L* 08/27/20 08/27/20 08/27/20 20:01 20:22 20:37 Glucose POC Glucose 51 L* 69 L* 69 L* 08/27/20 08/27/20 08/28/20 20:53 22:43 00:14 Glucose POC Glucose 94 85 79 08/28/20 08/28/20 08/28/20 03:50 04:04 05:56 Glucose 92 POC Glucose 60 L* 106 H 08/28/20 08/28/20 07:35 11:37 Glucose POC Glucose 103 H 137 H ASSESSMENT: 08/28 * Patient received total of 37 units of insulin yesterday, of which 30 were basal * Patient had emergent dialysis session - BSGs ending up decreasing in evening down to 40-50s / likely related to dialysis session / basal insulin * Basal insulin held this AM / plan to add scale for HS 08/27: * Patient received total of ~56 units of SQ insulin yesterday, of which 25 were basal insulin (plus insulin gtt for part of day) * Fasting BSG 181 mg/dL - increase to 30 units of basal insulin * Tighten CF/CR this AM 08/26: * Patient continuing on insulin drip this AM, had been paused briefly this AM, then resumed at 3 units/hr * BSGs this AM still in the 200s, continue drip and CR * Lunch BSGs trending down - plan to loosen CR / added 25 units of basal insulin PLAN FOR INPATIENT GLYCEMIC CONTROL: * Basal insulin * Lantus 5-15 units HS * Bolus insulin * NovoLog per scale ACHS or Q6hrs while NPO. Added 00 and 04 checks. * Goal Range: Low 120 mg/dL - High 160 mg/dL * Correction Factor: 40 mg/dL/unit * Nutritional / Prandial insulin per carb ratio of 1 unit per 15 grams CHO consumed * Please note that the plan above was derived based on current level of insulin resistance and hospital stress. These recommendations are appropriate for inpatient admission only. Plan of care upon discharge will need to be reassessed to avoid potential outpatient hypo/hyperglycemia. Thank you.
--- NOTE | 2020-08-28 15:16 | Hospitalist Progress Note ---
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 Initial presentation was profound weakness and shortness of breath, could be COPD but with elevated troponin will also consider silent angina and trend his trops, also consider endocarditis given previous VRE Bacteremia just d/c 08/04/20, he did have ID eval and a ALONDRA without vegetations and have his femoral dialysis cath pulled which was thought to be the source of infection, He does not have murmur or peripheral stigmata of endocarditis at this time, will check ESR and additional Blood cultures. Will need 2 step prior to d/c Pt feels that he would benefit from home O2, particularly in the AM Incentive spirometry (2) Elevated troponin: Pt without clear cut angina, but does have risk factors, will trend, did have 2 echos last admission( one that was ALONDRA) with preserved EF, continuing metoprolol holding hydralazine and amlodipine due to lower blood pressure Trop 0.074 on admission and essentially unchanged x2 after admission Trop 12/29/19 at 0.094, likely chronically elevated in the setting of CKD IV (3) COPD (chronic obstructive pulmonary disease): will be continued on duonebs, did check abg PT is slightly low but looks to be metabolic and not respiratory, (4) Chronic pancreatitis: has no complaints of abd pain or diarrhea, will continue creon (5) Insulin-requiring or dependent type II diabetes mellitus: Pt did not respond to basal bolus insulin, was transitioned to iv insulin gtt A1c 6.6 (6) Hypothyroidism (acquired): synthroid 88 mcg [facility], however states this was not started yet Dose adjusted 08/27 (7) CKD (chronic kidney disease): Pt has CKD 4, will consult Dr Daniels, pt may have the need to progress to [employer] Very little urine in ED, monitor with IVF HD on 08/27 (8) Smoker: will offer nicotine patch (9) DVT prophylaxis: heparin sc bid Pt states that [facility] to get him [facility] for a [facility] for use when away from home Wound care nursing eval pending mirhoa martinez PT/OT pending Wound care c/s pending Transfer off tele 08/28 (10) Abnormal finding on urinalysis: 3+ leuk est, neg nitrites, yeast noted Urine cx for less than 1K on prelim, await final Current abx will cover (11) Positive blood culture: Overnight team called for blood cx + for yeast quality control lab tech 08/28, ordered for single dose fluconazole / with yeast, likely contaminant Monitor Admission and Anticipated Discharge Date Admission Date: August 25, 2020 Subjective Pt is much improved today per himself, , and nursing. No SOB at rest. Has not been OOB much. He would like to try PT. Tolerating more PO. LE swelling is better. Pt denies fever, chest pain, abd pain, n/v, LE swelling. Still no bowel movement. Review of Systems Review of Systems: Pertinent positives and negatives reviewed in HPI--all others negative Physical Exam Constitutional: WD/WN, vitals as above Eyes: normal visual braga by confrontation and + anicteric sclerae Neck: normal visual inspection and trachea midline Respiratory: normal respiratory effort, lungs clear to auscultation Auscultation: + crackles (LLL improving) Cardiovascular: Rate/Rhythm: regular rate and regular rhythm Extremities: + edema (trace) Gastrointestinal (Abdomen): Inspection/Auscultation: abdomen not distended Percussion/Palpation: abdomen soft; abdomen nontender Musculoskeletal: Head/Neck/Chest: normocephalic and head atraumatic Skin: no rashes, warm and dry Neurologic: awake; not confused Speech / Cognition: normal speech Psychiatric: A+Ox3, euthymic affect Results & Data Results & Data ([facility]) Vital Signs (Past 12 Hours) Vital Signs Temp Pulse Resp BP Pulse Ox 08/28/20 15:08 20 93 08/28/20 11:02 20 94 08/28/20 11:00 36.9 C 63 18 144/62 H 98 08/28/20 07:49 36.8 C 59 L 20 139/68 90 08/28/20 07:09 61 20 93 PG Care Time/CCT Total # of Minutes Spent Total Time Spent with Patient: Total time spent is greater than 50% in coordination of care (as documented) at patient's floor/unit and/or counseling patient: Coding Level of Care Code 28328 Subseq Hosp Care Lvl 3 Diagnoses LLL pneumonia J18.9 Pneumonia type: due to unspecified organism Elevated troponin R77.8 COPD (chronic obstructive pulmonary disease) J44.9 COPD type: unspecified COPD Chronic pancreatitis K86.1 Pancreatitis type: unspecified pancreatitis type Insulin-requiring or dependent type II diabetes mellitus E11.9; Z79.4 Hypothyroidism (acquired) E03.9 CKD (chronic kidney disease) N18.9 Smoker F17.200 DVT prophylaxis Z29.9 Abnormal finding on urinalysis R82.90 Positive blood culture R78.81 (1) LLL pneumonia Pneumonia type: due to unspecified organism Qualified Code(s): J18.9 - Pneumonia, unspecified organism (2) COPD (chronic obstructive pulmonary disease) COPD type: unspecified COPD Qualified Code(s): J44.9 - Chronic obstructive pulmonary disease, unspecified (3) Chronic pancreatitis Pancreatitis type: unspecified pancreatitis type Qualified Code(s): K86.1 - Other chronic pancreatitis
[2020-08-28] MEDS: PIPERACILLIN/TAZOBACTAM 4.5 GM in DEXTROSE 5% 100 ML IV SCH (15:54)
[2020-08-28] MEDS: INSULIN GLARGINE SOLOSTAR 100 UNITS/ML 3 ML PEN SC SCH (21:18)
[2020-08-29] MEDS: ALBUT/IPRATROP 3MG/0.5MG NEB 3 ML VIAL NEB SCH ×6 (03:25→22:55)
[2020-08-29] MEDS: PIPERACILLIN/TAZOBACTAM 4.5 GM in DEXTROSE 5% 100 ML IV SCH ×2 (04:02→16:02)
[2020-08-29] MEDS: LEVOTHYROXINE SODIUM 100 MCG TABLET PO SCH (05:54)
[2020-08-29] MEDS: POLYETHYLENE (MIRALAX) 17 GM PACK PO SCH ×4 (05:54→23:59)
[2020-08-29 06:48] LABS: Hematocrit (blood only) 28.2 % (42-52); Mean Corpuscular Hemoglobin 29.5 pg (25-34); Mean Corpuscular Hgb Conc 31.9 g/dL (32-36); Mean Corpuscular Volume 92.5 fL (80-100); Mean Platelet Volume 9.1 fL (7.4-10.4); Platelet Count 311 K/uL (130-400); RDW Coefficient of Variation 16.2 % (11.5-14.5); RDW Standard Deviation 54.6 fL (36.4-46.3); Red Blood Count 3.05 M/uL (4.7-6.1); White Blood Count 11.95 K/uL (4.8-10.8)
[2020-08-29 07:29] LABS: BUN Creatinine Ratio 10.5 (10-20); Calcium 8.1 mg/dl (8.5-10.1); Creatinine Clr Calc Pharmacy 14.4 ml/min; Est GFR (African American) 10.2; Est GFR (Non-African American) 8.8; Potassium 5.1 mmol/L (3.5-5.1)
[2020-08-29] MEDS: INSULIN ASPART 100 UNITS/ML 3 ML PEN SC SCH ×4 (09:07→20:16)
[2020-08-29] MEDS: NICOTINE 14 MG/24 HR PATCH TD SCH (09:12)
[2020-08-29] MEDS: HEPARIN SOD 5,000 UNIT/0.5 ML VIAL SQ SCH ×2 (09:13→20:11)
[2020-08-29] MEDS: IRON SUCROSE 200 MG in 0.9 % SODIUM CHLORIDE 100 ML IV SCH (10:14)
--- NOTE | 2020-08-29 10:28 | Nephrology Progress Note ---
Date of Service August 29, 2020 Assessment & Plan (1) ESRD needing dialysis: Johnny has PMH of DM, HTN, CAD, h/o tobacco abuse, history of Agent [place] exposure, bradycardia requiring pacemaker placement, and chronic kidney disease. Palomo was admitted to [facility] from June 22- with decreased urine output and dysuria. Imaging revealed atrophic left kidney and moderate hydronephrosis on the right. Cystoscopy with stent placement was unsuccessful and transferred to [facility] for percutaneous nephrostomy tube placement. Unfortunately, renal function worsened requiring initiation of dialysis and he has been maintained on TTS HD at [facility] under the care of Dr. Howell. There were two attempts at R IJ TDC placement but neither functioned well. The Left IJ was avoided due to pacer placement. A left femoral HD catheter was complicated by bacteremia. Dr. Bonilla then placed an AV graft in the left arm on 07/21/20. He was readmitted to [facility] 07/25/20 - 08/04/20 for evaluation of febrile illness. Cr had improved to 3.5, was nonoliguric and HD was held. Blood cultures were p ositive for Enterococcus faecalis, femoral dialysis catheter was removed and he completed a course of daptomycin via midline which was removed as an outpatient.. R percutaneous nephrostomy tube was removed on 08/04/20. He again presented to hospital on 08/25/2020 with progressive shortness of breath and decreased urine output. Hemodialysis was resumed on 08/27/2020 as renal function progressively worsened with creatinine above 6, oligo anuria with significant volume overload and respiratory distress. -- dialysis for 4 hours today, AV graft function well. Plan for 3 L UF. -- dose medications for GFR less than for less than 10, right arm nephrology precaution, avoid IV fluid, renal diet. -- Epogen 12639 units x1 dose given on 08/27/2020 -- on Venofer 200 mg daily for 5 doses. -- set up out pt dialysis per pts preferences will follow (2) Acute respiratory failure with hypoxia: (3) Oliguria: Admission and Anticipated Discharge Date Admission Date: August 25, 2020 Subjective Johnny was seen and examined in his room this morning while he was getting HD. Has been feeling better, shortness of Breath improved.. Urine output low, no BM for last almost 1 week. Electrolyte acceptable. Blood pressure well controlled. Review of Systems Review of Systems: All systems reviewed & are unremarkable except as noted in HPI & below Physical Exam Constitutional: WD/WN, vitals as above + ill appearing Respiratory: normal respiratory effort; no respiratory distress Auscultation: + crackles; no wheezes Cardiovascular: RRR, no murmur, no edema Skin: no rashes, warm and dry Neurologic: awake; no focal motor deficits and not confused Psychiatric: Orientation: alert and oriented x 3 Results & Data ([facility]) Vital Signs (Past 12 Hours) Vital Signs Temp Pulse Pulse Pulse Resp BP BP 08/29/20 10:20 68 120/61 08/29/20 10:00 61 121/59 L 08/29/20 09:40 61 156/72 H 08/29/20 09:20 60 145/76 H 08/29/20 09:07 37.1 C 60 60 154/71 H 08/29/20 07:55 36.8 C 61 20 126/76 08/29/20 07:21 20 08/29/20 03:26 60 20 08/28/20 23:44 37.1 C 60 18 129/68 Pulse Ox 08/29/20 10:20 08/29/20 10:00 08/29/20 09:40 08/29/20 09:20 08/29/20 09:07 08/29/20 07:55 94 08/29/20 07:21 92 08/29/20 03:26 95 08/28/20 23:44 93 PG Care Time/CCT Total # of Minutes Spent Total Time Spent with Patient: Total time spent is greater than 50% in coordination of care (as documented) at patient's floor/unit and/or counseling patient: Coding Level of Care Code 28990 Subseq Hosp Care Lvl 3 Diagnoses ESRD needing dialysis N18.6; Z99.2 Acute respiratory failure with hypoxia J96.01 Oliguria R34
--- NOTE | 2020-08-29 11:58 | Pharmacy Report ---
Pharmacy Glycemic Short Note 2 - Date of Service August 29, 2020 - Glycemic Short BSG Results (Last 24 hours): ASSESSMENT: 08/29: * Patient received a total of 21 units of insulin yesterday: * 15 units basal and 6 units bolus * BSGs were: [phone] mg/dL * Fasting BSG was 146 mg/dL this AM. Planned for HD today. * Significant reduction in total daily insulin dose yesterday secondary to hypoglycemia on the evening of 08/27/2020 * I have tightened the CF/CR for this morning and will plan to continue basal insulin scale this evening. 08/28 * Patient received total of 37 units of insulin yesterday, of which 30 were basal * Patient had emergent dialysis session - BSGs ending up decreasing in evening down to 40-50s / likely related to dialysis session / basal insulin * Basal insulin held this AM / plan to add scale for HS 08/27: * Patient received total of ~56 units of SQ insulin yesterday, of which 25 were basal insulin (plus insulin gtt for part of day) * Fasting BSG 181 mg/dL - increase to 30 units of basal insulin * Tighten CF/CR this AM 08/26: * Patient continuing on insulin drip this AM, had been paused briefly this AM, then resumed at 3 units/hr * BSGs this AM still in the 200s, continue drip and CR * Lunch BSGs trending down - plan to loosen CR / added 25 units of basal insulin PLAN FOR INPATIENT GLYCEMIC CONTROL: * Basal insulin - possible increase per scale * Lantus 10-20 units HS * Bolus insulin - tightened CF/CR/Goal Range * NovoLog per scale ACHS or Q6hrs while NPO. Added 00 and 04 checks. * Goal Range: Low 110 mg/dL - High 140 mg/dL * Correction Factor: 20 mg/dL/unit * Nutritional / Prandial insulin per carb ratio of 1 unit per 7 grams CHO consumed * Please note that the plan above was derived based on current level of insulin resistance and hospital stress. These recommendations are appropriate for inpatient admission only. Plan of care upon discharge will need to be reassessed to avoid potential outpatient hypo/hyperglycemia. Thank you.
[2020-08-29] MEDS: GABAPENTIN 300 MG CAP PO SCH (13:26)
[2020-08-29] MEDS: PANCREAZE (LIPASE 10,500U) CAP PO SCH ×3 (13:26→16:03)
[2020-08-29] MEDS: METOPROLOL TARTRATE 25 MG TAB PO SCH ×2 (13:27→20:11)
[2020-08-29] MEDS: SENNA 8.6 MG TAB PO SCH (13:27)
[2020-08-29] MEDS: TAMSULOSIN HCL 0.4 MG CAP PO SCH (13:27)
[2020-08-29] MEDS: DAPTOmycin 525 MG in SYRINGE 0 ML IV SCH (13:28)
--- NOTE | 2020-08-29 13:40 | Hospitalist Progress Note ---
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 Initial presentation was profound weakness and shortness of breath, could be COPD. Troponins were elevated but stayed stable and were around the same when he was here in December so may be baseline. Consider endocarditis given previous VRE Bacteremia just d/c 08/04/20, however he did have ID eval and a ALONDRA without vegetations and had his femoral dialysis cath pulled which was thought to be the source of infection. No murmur. BC ngtd. Sed rate 67. Will need 2 step prior to d/c Pt feels that he would benefit from home O2, particularly in the AM Continue Incentive spirometry (2) Elevated troponin: Pt without clear cut angina, but does have risk factors, did have 2 echos last admission( one that was ALONDRA) with preserved EF, continuing metoprolol. Held hydralazine and amlodipine due to lower blood pressure which has been increasing. Trop 0.074 on admission and essentially unchanged x2 after admission Trop 12/29/19 at 0.094, likely chronically elevated in the setting of CKD IV (3) COPD (chronic obstructive pulmonary disease): will be continued on duonebs, did check abg PT is slightly low but looks to be metabolic and not respiratory, (4) Chronic pancreatitis: has no complaints of abd pain or diarrhea, will continue creon (5) Insulin-requiring or dependent type II diabetes mellitus: Pt required iv insulin gtt initially but is now on subq insulin. Managed by pharmacy A1c 6.6 (6) Hypothyroidism (acquired): synthroid 88 mcg was [facility], however states this was not started yet Dose adjusted 08/27 (7) CKD (chronic kidney disease): Pt has CKD 4, Consulted nephrology - patient had dialysis treatment 08/29 Renal US showing chronic R hydronephrolsis - also seen in June Per urology consult 08/04 - patient needs to follow up outpatient for further work up and bladder biopsy (8) Smoker: will offer nicotine patch (9) Abnormal finding on urinalysis: 3+ leuk est, neg nitrites, yeast noted Urine cx mixed skin nu (10) Positive blood culture: Overnight team called for blood cx + for yeast educational consultant 08/28, ordered for single dose fluconazole 11/07 with yeast, likely contaminant Monitor (11) Hyponatremia: Na 129 dialysis today Will recheck am (12) Constipation: No bm for a week Check KUB If no obstruction will order enema (13) DVT prophylaxis: heparin sc bid Pt states that [facility] been working to get him approved for a wheelchair for use when away from home Wound care nursing eval pending PT/OT pending Wound care c/s pending Admission and Anticipated Discharge Date Admission Date: August 25, 2020 Subjective Mr. Morales is feeling fatigued this morning. Not particularly feeling sob. Mild productive cough. ROS Constitutional: no chills, aches, sweats or fever Respiratory: See HPI Cardiac: no chest pain, palpitations, edema, orthopnea or lightheadedness GI: no abdominal pain, nausea, vomiting, diarrhea or constipation : no dysuria or hesitancy Extremities: no joint pain or weakness Skin: no rash All other systems reviewed and negative Physical Exam Physical Exam: General: no distress Eyes: normal inspection, PERLL Respiratory: chest non tender, expiratory wheezes bilaterally, no respiratory distress, no accessory muscle use Cardiac: regular rate and rhythm, no rub or gallop, no murmur, no edema, no jvd GI/: active bowel sounds, no abd pain or tenderness, soft, non distended Extremities: normal range of motion, normal strength, non tender Neuro/Psych: alert and oriented x 3, normal mood and affect Skin: normal color, dry Results & Data Results & Data ([facility]) Vital Signs (Past 12 Hours) Vital Signs Temp Pulse Pulse Pulse Resp BP BP 08/29/20 13:00 60 125/62 08/29/20 12:40 62 159/63 H 08/29/20 12:20 59 L 143/59 H 08/29/20 12:00 60 137/67 08/29/20 11:40 60 108/58 L 08/29/20 11:20 60 159/69 H 08/29/20 11:17 57 L 19 10/26/20 11:00 60 135/65 08/29/20 10:40 60 137/66 08/29/20 10:20 68 120/61 08/29/20 10:00 61 121/59 L 08/29/20 09:40 61 156/72 H 08/29/20 09:20 60 145/76 H 08/29/20 09:07 37.1 C 60 60 154/71 H 08/29/20 07:55 36.8 C 61 20 126/76 08/29/20 07:21 20 08/29/20 03:26 60 20 Pulse Ox 08/29/20 13:00 08/29/20 12:40 08/29/20 12:20 08/29/20 12:00 08/29/20 11:40 08/29/20 11:20 08/29/20 11:17 97 08/29/20 11:00 08/29/20 10:40 08/29/20 10:20 08/29/20 10:00 08/29/20 09:40 08/29/20 09:20 08/29/20 09:07 08/29/20 07:55 94 08/29/20 07:21 92 08/29/20 03:26 95 PG Care Time/CCT Total # of Minutes Spent Total Time Spent with Patient: Total time spent is greater than 50% in coordination of care (as documented) at patient's floor/unit and/or counseling patient: Coding Level of Care Code 46883 Subseq Hosp Care Lvl 3 Diagnoses LLL pneumonia J18.9 Pneumonia type: due to unspecified organism Elevated troponin R77.8 COPD (chronic obstructive pulmonary disease) J44.9 COPD type: unspecified COPD Chronic pancreatitis K86.1 Pancreatitis type: unspecified pancreatitis type Insulin-requiring or dependent type II diabetes mellitus E11.9; Z79.4 Hypothyroidism (acquired) E03.9 CKD (chronic kidney disease) N18.9 Smoker F17.200 Abnormal finding on urinalysis R82.90 Positive blood culture R78.81 Hyponatremia E87.1 Constipation K59.00 DVT prophylaxis Z29.9 (1) LLL pneumonia Pneumonia type: due to unspecified organism Qualified Code(s): J18.9 - Pneum onia, unspecified organism (2) COPD (chronic obstructive pulmonary disease) COPD type: unspecified COPD Qualified Code(s): J44.9 - Chronic obstructive pulmonary disease, unspecified (3) Chronic pancreatitis Pancreatitis type: unspecified pancreatitis type Qualified Code(s): K86.1 - Other chronic pancreatitis
--- NOTE | 2020-08-29 14:17 | XRay Report ---
KUB HISTORY: Acute generalized abdominal pain and tenderness with constipation abd tenderness, constipat ion COMPARISON: KUB 07/31/2020 FINDINGS: Bowel gas pattern is nonobstructive. Surgical clips project over the abdominal right upper quadrant. There is moderate fecal retention with mild gaseous distention of the ascending colon and h epatic flexure. A right ureteral stent appears to be in satisfactory positioning. Interval removal o f the percutaneous nephrostomy catheter. Pancreatic calcifications redemonstrated suggestive of chron ic pancreatitis. No definite renal or ureteral calculi. Vascular calcifications of the pelvis. Cathet er projects over the mid pelvis. No pneumoperitoneum or pneumatosis. No fracture. IMPRESSION: 1. Satisfactory positioning of the right ureteral stent. 2. Interval removal of the nephrostomy catheter. 3. Moderate fecal retention with nonobstructive bowel gas pattern. ACT 112: Negative or not required by law. The above report was generated using voice recognition software. It may contain grammatical, syntax o r spelling errors. Electronically signed by: Michael Truong M.D. 08/29/2020 2:16 PM
[2020-08-29] MEDS: INSULIN GLARGINE SOLOSTAR 100 UNITS/ML 3 ML PEN SC SCH (20:19)
[2020-08-30] MEDS: ALBUT/IPRATROP 3MG/0.5MG NEB 3 ML VIAL NEB SCH ×6 (02:54→23:21)
[2020-08-30] MEDS: PIPERACILLIN/TAZOBACTAM 4.5 GM in DEXTROSE 5% 100 ML IV SCH ×2 (03:34→16:48)
[2020-08-30] MEDS: LEVOTHYROXINE SODIUM 100 MCG TABLET PO SCH (05:35)
[2020-08-30] MEDS: TAMSULOSIN HCL 0.4 MG CAP PO SCH (08:49)
[2020-08-30] MEDS: METOPROLOL TARTRATE 25 MG TAB PO SCH ×2 (08:49→20:36)
[2020-08-30] MEDS: PANCREAZE (LIPASE 10,500U) CAP PO SCH ×3 (08:49→17:02)
[2020-08-30] MEDS: GABAPENTIN 300 MG CAP PO SCH (08:50)
[2020-08-30] MEDS: SENNA 8.6 MG TAB PO SCH (08:50)
[2020-08-30] MEDS: IRON SUCROSE 200 MG in 0.9 % SODIUM CHLORIDE 100 ML IV SCH (08:51)
[2020-08-30] MEDS: NICOTINE 14 MG/24 HR PATCH TD SCH (08:51)
[2020-08-30] MEDS: HEPARIN SOD 5,000 UNIT/0.5 ML VIAL SQ SCH ×2 (08:51→20:35)
[2020-08-30 08:52] LABS: Hematocrit (blood only) 29.3 % (42-52); Hemoglobin 8.9 g/dL (14.0-18.0); Mean Corpuscular Hemoglobin 28.7 pg (25-34); Mean Corpuscular Hgb Conc 30.4 g/dL (32-36); Mean Corpuscular Volume 94.5 fL (80-100); Mean Platelet Volume 9.1 fL (7.4-10.4); Platelet Count 335 K/uL (130-400); RDW Coefficient of Variation 16.2 % (11.5-14.5); RDW Standard Deviation 55.5 fL (36.4-46.3)
[2020-08-30] MEDS: INSULIN ASPART 100 UNITS/ML 3 ML PEN SC SCH ×4 (09:09→20:35)
[2020-08-30 09:35] LABS: Calcium 8.2 mg/dl (8.5-10.1); Creatinine Clr Calc Pharmacy 17.5 ml/min; Est GFR (Non-African American) 11.2; Potassium 4.2 mmol/L (3.5-5.1)
--- NOTE | 2020-08-30 11:37 | Nephrology Progress Note ---
Date of Service August 30, 2020 Assessment & Plan (1) ESRD needing dialysis: Johnny has PMH of DM, HTN, CAD, h/o tobacco abuse, history of Agent [place] exposure, bradycardia requiring pacemaker placement, and chronic kidney disease. Palomo was admitted to [facility] from June 22- with decreased urine output and dysuria. Imaging revealed atrophic left kidney and moderate hydronephrosis on the right. Cystoscopy with stent placement was unsuccessful and transferred to [facility] for percutaneous nephrostomy tube placement. Unfortunately, renal function worsened requiring initiation of dialysis and he has been maintained on TTS HD at [facility] under the care of Dr. Howell. There were two attempts at R IJ TDC placement but neither functioned well. The Left IJ was avoided due to pacer placement. A left femoral HD catheter was complicated by bacteremia. Dr. Bonilla then placed an AV graft in the left arm on 07/21/20. He was readmitted to [facility] 07/25/20 - 08/04/20 for evaluation of febrile illness. Cr had improved to 3.5, was nonoliguric and HD was held. Blood cultures were p ositive for Enterococcus faecalis, femoral dialysis catheter was removed and he completed a course of daptomycin via midline which was removed as an outpatient.. R percutaneous nephrostomy tube was removed on 08/04/20. He again presented to hospital on 08/25/2020 with progressive shortness of breath and decreased urine output. Hemodialysis was resumed on 08/27/2020 as renal function progressively worsened with creatinine above 6, oligo anuria with significant volume overload and respiratory distress. -- continue on dialysis Saturday, Saturday, Saturday, dialysis for 4 hours tomorrow AV graft function well. Plan for 3 L UF. -- dose medications for GFR less than for less than 10, right arm nephrology precaution, avoid IV fluid, renal diet. -- Epogen 32977 units x1 dose given on 08/27/2020 -- on Venofer 200 mg daily for 5 doses. -- set up out pt dialysis per pts preferences, Johnny prefers to follow with Dr. Daniels and and switch his dialysis treatment to [facility] will follow (2) Acute respiratory failure with hypoxia: (3) Oliguria: Admission and Anticipated Discharge Date Admission Date: August 25, 2020 Subjective Johnny was seen and examined in his room this morning with his Mikayla at bedside. He is upset and frustrated with multiple things including multiple bowel movement last night and issues with his breakfast this morning. Denies shortness of breath or chest pain. Tolerated dialysis yesterday. Currently blood pressure, electrolyte acceptable. Review of Systems Review of Systems: All systems reviewed & are unremarkable except as noted in HPI & below Physical Exam Constitutional: WD/WN, vitals as above + ill appearing Respiratory: normal respiratory effort; no respiratory distress Auscultation: + crackles; no wheezes Cardiovascular: RRR, no murmur, no edema Skin: no rashes, warm and dry Neurologic: awake; no focal motor deficits and not confused Psychiatric: Orientation: alert and oriented x 3 Results & Data ([facility]) Vital Signs (Past 12 Hours) Vital Signs Temp Pulse Resp BP Pulse Ox 08/30/20 11:03 61 20 92 08/30/20 07:07 36.9 C 61 18 146/63 H 92 08/30/20 06:51 62 21 92 08/30/20 04:03 60 147/67 H 08/30/20 00:00 37 C 62 18 115/67 91 PG Care Time/CCT Total # of Minutes Spent Total Time Spent with Patient: Total time spent is greater than 50% in coordination of care (as documented) at patient's floor/unit and/or counseling patient: Coding Level of Care Code 13807 Subseq Hosp Care Lvl 3 Diagnoses ESRD needing dialysis N18.6; Z99.2 Acute respiratory failure with hypoxia J96.01 Oliguria R34
--- NOTE | 2020-08-30 13:55 | Hospitalist Progress Note ---
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 Initial presentation was profound weakness and shortness of breath, could be COPD. Troponins were elevated but stayed stable and were around the same when he was here in December so may be baseline. Considered endocarditis given previous VRE Bacteremia just d/c 08/04/20, however he did have ID eval and a ALONDRA without vegetations and had his femoral dialysis cath pulled which was thought to be the source of infection. No murmur. BC ngtd. Sed rate 67. Will need 2 step prior to d/c Pt feels that he would benefit from home O2, particularly in the AM Continue Incentive spirometry (2) Elevated troponin: Pt without clear cut angina, but does have risk factors, did have 2 echos last admission( one that was ALONDRA) with preserved EF, continuing metoprolol. Held hydralazine and amlodipine due to lower blood pressure which has been increasing. Trop 0.074 on admission and essentially unchanged x2 after admission Trop 12/29/19 at 0.094, likely chronically elevated in the setting of CKD IV (3) COPD (chronic obstructive pulmonary disease): will be continued on duonebs, did check abg PT is slightly low but looks to be metabolic and not respiratory Will start prednisone 40 mg daily given increased O2 requirements (4) Chronic pancreatitis: has no complaints of abd pain, will continue creon (5) Insulin-requiring or dependent type II diabetes mellitus: Pt required iv insulin gtt initially but is now on subq insulin. Managed by pharmacy A1c 6.6 (6) Hypothyroidism (acquired): synthroid 88 mcg was [facility], however states this was not started yet Dose adjusted 08/27 (7) CKD (chronic kidney disease): Pt has CKD 4, Consulted nephrology - patient had dialysis treatment 08/29 Renal US showing chronic R hydronephrolsis - also seen in June Per urology consult 08/04 - patient needs to follow up outpatient for further work up and bladder biopsy (8) Smoker: nicotine patch (9) Abnormal finding on urinalysis: 3+ leuk est, neg nitrites, yeast noted Urine cx mixed skin nu - dc dapto (10) Positive blood culture: Overnight team called for blood 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 Morales feels very unwell today generally. He does not feel sob though his oxygen requirements have increased to 5L. He is not coughing much. He reports frequent diarrhea starting yesterday. ROS Constitutional: no chills, aches, sweats or fever Respiratory: no sob,cough, sputum, or wheezing Cardiac: no chest pain, palpitations, edema, orthopnea or lightheadedness GI: no abdominal pain, nausea, vomiting : no dysuria or hesitancy Extremities: no joint pain or weakness Skin: no rash All other systems reviewed and negative Physical Exam Physical Exam: General: no distress Eyes: normal inspection, PERLL Respiratory: chest non tender, wheezing left base, no respiratory distress, no accessory muscle use Cardiac: regular rate and rhythm, no rub or gallop, no murmur, no edema, no jvd GI/: active bowel sounds, no abd pain or tenderness, soft, non distended Extremities: normal range of motion, normal strength, non tender Neuro/Psych: alert and oriented x 3, normal mood and affect Skin: normal color, dry Results & Data Results & Data ([facility]) Vital Signs (Past 12 Hours) Vital Signs Temp Pulse Resp BP Pulse Ox 08/30/20 11:03 61 20 92 08/30/20 07:07 36.9 C 61 18 146/63 H 92 08/30/20 06:51 62 21 92 08/30/20 04:03 60 147/67 H PG Care Time/CCT Total # of Minutes Spent Total Time Spent with Patient: Total time spent is greater than 50% in coordination of care (as documented) at patient's floor/unit and/or counseling patient: Coding Level of Care Code 97221 Subseq Hosp Care Lvl 3 Diagnoses LLL pneumonia J18.9 Pneumonia type: due to unspecified organism Elevated troponin R77.8 COPD (chronic obstructive pulmonary disease) J44.9 COPD type: unspecified COPD Chronic pancreatitis K86.1 Pancreatitis type: unspecified pancreatitis type Insulin-requiring or dependent type II diabetes mellitus E11.9; Z79.4 Hypothyroidism (acquired) E03.9 CKD (chronic kidney disease) N18.9 Smoker F17.200 Abnormal finding on urinalysis R82.90 Positive blood culture R78.81 Hyponatremia E87.1 Constipation K59.00 DVT prophylaxis Z29.9 (1) Chronic pancreatitis Pancreatitis type: unspecified pancreatitis type Qualified Code(s): K86.1 - Other chronic pancreatitis (2) COPD (chronic obstructive pulmonary disease) COPD type: unspecified COPD Qualified Code(s): J44.9 - Chronic obstructive pulmonary disease, unspecified (3) LLL pneumonia Pneumonia type: due to unspecified organism Qualified Code(s): J18.9 - Pneumonia, unspecified organism
[2020-08-30] MEDS: predniSONE 20 MG TAB PO SCH (16:58)
[2020-08-30] MEDS: INSULIN GLARGINE SOLOSTAR 100 UNITS/ML 3 ML PEN SC SCH (20:36)
[2020-08-31] MEDS: PIPERACILLIN/TAZOBACTAM 4.5 GM in DEXTROSE 5% 100 ML IV SCH ×3 (03:40→17:06)
[2020-08-31] MEDS: ALBUT/IPRATROP 3MG/0.5MG NEB 3 ML VIAL NEB SCH ×6 (04:44→22:25)
[2020-08-31] MEDS: LEVOTHYROXINE SODIUM 100 MCG TABLET PO SCH (05:54)
[2020-08-31 06:22] LABS: Hematocrit (blood only) 29.3 % (42-52); Hemoglobin 9.1 g/dL (14.0-18.0); Mean Corpuscular Hemoglobin 29.1 pg (25-34); Mean Corpuscular Hgb Conc 31.1 g/dL (32-36); Mean Corpuscular Volume 93.6 fL (80-100); Platelet Count 358 K/uL (130-400); RDW Coefficient of Variation 16.3 % (11.5-14.5); RDW Standard Deviation 55.1 fL (36.4-46.3); Red Blood Count 3.13 M/uL (4.7-6.1)
[2020-08-31 07:02] LABS: BUN Creatinine Ratio 8.3 (10-20); Calcium 7.9 mg/dl (8.5-10.1); Creatinine Clr Calc Pharmacy 14.2 ml/min; Est GFR (African American) 10.1; Est GFR (Non-African American) 8.7; Phosphorus 6.7 mg/dl (2.5-4.9); Potassium 4.7 mmol/L (3.5-5.1)
[2020-08-31] MEDS: NICOTINE 14 MG/24 HR PATCH TD SCH (07:19)
[2020-08-31] MEDS: HEPARIN SOD 5,000 UNIT/0.5 ML VIAL SQ SCH ×2 (07:19→21:24)
[2020-08-31] MEDS: GABAPENTIN 300 MG CAP PO SCH (07:21)
[2020-08-31] MEDS: METOPROLOL TARTRATE 25 MG TAB PO SCH ×2 (07:21→21:49)
[2020-08-31] MEDS: PANCREAZE (LIPASE 10,500U) CAP PO SCH ×3 (07:21→16:37)
[2020-08-31] MEDS: TAMSULOSIN HCL 0.4 MG CAP PO SCH (07:21)
[2020-08-31] MEDS: SENNA 8.6 MG TAB PO SCH (07:22)
[2020-08-31] MEDS: IRON SUCROSE 200 MG in 0.9 % SODIUM CHLORIDE 100 ML IV SCH (07:30)
[2020-08-31] MEDS: predniSONE 20 MG TAB PO SCH (07:55)
[2020-08-31] MEDS: INSULIN ASPART 100 UNITS/ML 3 ML PEN SC SCH ×4 (08:43→21:25)
[2020-08-31] MEDS ORDERED: EPOETIN ALFA 10,000 UNITS/ML VIAL IV ONE (09:00)
[2020-08-31] MEDS ORDERED: NovoLIN-N (NPH) PER UNIT CHARGE SQ SCH (09:00)
--- NOTE | 2020-08-31 09:15 | Pharmacy Report ---
Pharmacy Glycemic Short Note 2 - Date of Service August 31, 2020 - Glycemic Short BSG Results (Last 24 hours): ASSESSMENT: 08/31: * Palomo received 20 units of insulin yesterday * 15 units basal + 5 units bolus * BSGs were well controlled at [phone] mg/dL * Patient is scheduled for HD session today. He was started on Prednisone 40 mg daily. First dose was received yesterday afternoon. * Fasting BSG was elevated at 198 mg/dL this morning. This is likely due to steroid administration. * Will add NPH dose at ~ 0.4 units/kg (based on adjusted body weight) to be given daily with Prednisone dose. The pharmacokinetic properties of NPH align with the duration of action of once daily prednisone which should help to maintain BSGs in goal range. If Prednisone is not given/held/discontinued for any reason, then do not administer the NPH dose and contact the glycemic pharmacist. * No changes will be made to Lantus or Novolog dose at this time 08/29: * Patient received a total of 21 units of insulin yesterday: * 15 units basal and 6 units bolus * BSGs were: [phone] mg/dL * Fasting BSG was 146 mg/dL this AM. Planned for HD today. * Significant reduction in total daily insulin dose yesterday secondary to hypoglycemia on the evening of 08/27/2020 * I have tightened the CF/CR for this morning and will plan to continue basal insulin scale this evening. 08/28 * Patient received total of 37 units of insulin yesterday, of which 30 were basal * Patient had emergent dialysis session - BSGs ending up decreasing in evening down to 40-50s / likely related to dialysis session / basal insulin * Basal insulin held this AM / plan to add scale for HS PLAN FOR INPATIENT GLYCEMIC CONTROL: * Basal insulin - added NPH * Lantus 10-20 units HS (see eMAR for more details) * NPH 35 units qAM (give with Prednisone dose) * Bolus insulin - no change * NovoLog per scale ACHS or Q6hrs while NPO. Added 00 and 04 checks. * Goal Range: Low 110 mg/dL - High 140 mg/dL * Correction Factor: 20 mg/dL/unit * Nutritional / Prandial insulin per carb ratio of 1 unit per 7 grams CHO consumed DISCHARGE RECOMMENDATIONS: * HbA1c = 6.6% from this admission. This demonstrates excellent outpatient control of T2DM and is at goal. * Patient admits to poor appetite, decreased PO intake and weight loss of almost 20 lbs prior to admission. There is concern for hypoglycemia given current outpatient insulin dose. * Recommend: * SMBG at least 2 x per day * Patient should closely follow up with outpatient provider regarding BSGs once discharged to develop a plan in the event that he continues to have poor appetite and decreased PO intake. * Could consider a slight reduction in home insulin dose to ensure patient does not experience hypoglycemia. * Please note that the plan above was derived based on current level of insulin resistance and hospital stress. These recommendations are appropriate for inpatient admission only. Plan of care upon discharge will need to be reassessed to avoid potential outpatient hypo/hyperglycemia. Thank you.
--- NOTE | 2020-08-31 12:06 | Nephrology Progress Note ---
Date of Service August 31, 2020 Assessment & Plan (1) ESRD needing dialysis: Johnny has PMH of DM, HTN, CAD, h/o tobacco abuse, history of [place] exposure, bradycardia requiring pacemaker placement, and chronic kidney disease. Palomo was admitted to [facility] from June 22- with decreased urine output and dysuria. Imaging revealed atrophic left kidney and moderate hydronephrosis on the right. Cystoscopy with stent placement was unsuccessful and transferred to [facility] for percutaneous nephrostomy tube placement. Unfortunately, renal function worsened requiring initiation of dialysis and he has been maintained on TTS HD at [facility] under the care of Dr. Howell. There were two attempts at R IJ TDC placement but neither functioned well. The Left IJ was avoided due to pacer placement. A left femoral HD catheter was complicated by bacteremia. Dr. Bonilla then placed an AV graft in the left arm on 07/21/20. He was readmitted to [facility] 07/25/20 - 08/04/20 for evaluation of febrile illness. Cr had improved to 3.5, was nonoliguric and HD was held. Blood cultures were p ositive for Enterococcus faecalis, femoral dialysis catheter was removed and he completed a course of daptomycin via midline which was removed as an outpatient.. R percutaneous nephrostomy tube was removed on 08/04/20. He again presented to hospital on 08/25/2020 with progressive shortness of breath and decreased urine output. Hemodialysis was resumed on 08/27/2020 as renal function progressively worsened with creatinine above 6, oligo anuria with significant volume overload and respiratory distress. -- dialysis today and then Saturday and Saturday with plan to resume TTS schedule starting next Saturday at out pt unit. AV graft function well. -- dose medications for GFR less than for less than 10, right arm nephrology precaution, avoid IV fluid, renal diet. -- Epogen 65395 units x1 dose today --start on renal cap/d and Renvela 1 tab TIDM -- on Venofer 200 mg daily for 5 doses, last dose on 09/02/20. will follow (2) Acute respiratory failure with hypoxia: (3) Oliguria: Admission and Anticipated Discharge Date Admission Date: August 25, 2020 Subjective Johnny was seen and examined in his room this morning with his Mikayla at bedside. He is gettign HD, tolerating well, BP stable. Denies shortness of breath or chest pain. Review of Systems Review of Systems: All systems reviewed & are unremarkable except as noted in HPI & below Physical Exam Constitutional: WD/WN, vitals as above + ill appearing Respiratory: normal respiratory effort; no respiratory distress Auscultation: + crackles; no wheezes Cardiovascular: RRR, no murmur, no edema Skin: no rashes, warm and dry Neurologic: awake; no focal motor deficits and not confused Psychiatric: Orientation: alert and oriented x 3 Results & Data ([facility]) Vital Signs (Past 12 Hours) Vital Signs Temp Pulse Pulse Pulse Resp BP BP 08/31/20 12:00 62 110/77 08/31/20 11:40 60 121/61 08/31/20 11:20 60 123/57 L 08/31/20 11:00 60 117/59 L 08/31/20 10:40 66 122/89 08/31/20 10:20 60 122/56 L 08/31/20 10:00 60 118/58 L 08/31/20 09:40 60 120/61 08/31/20 09:20 61 118/59 L 08/31/20 09:00 60 119/58 L 08/31/20 08:40 60 124/59 L 08/31/20 08:26 36.7 C 63 63 122/58 L 08/31/20 07:14 36.4 C L 60 16 144/69 H 08/31/20 07:01 20 08/31/20 03:05 60 20 Pulse Ox 08/31/20 12:00 08/31/20 11:40 08/31/20 11:20 08/31/20 11:00 08/31/20 10:40 08/31/20 10:20 08/31/20 10:00 08/31/20 09:40 08/31/20 09:20 08/31/20 09:00 08/31/20 08:40 08/31/20 08:26 08/31/20 07:14 90 08/31/20 07:01 94 08/31/20 03:05 94 PG Care Time/CCT Total # of Minutes Spent Total Time Spent with Patient: Total time spent is greater than 50% in coordination of care (as documented) at patient's floor/unit and/or counseling patient: Coding Level of Care Code 50170 Subseq Hosp Care Lvl 3 Diagnoses ESRD needing dialysis N18.6; Z99.2 Acute respiratory failure with hypoxia J96.01 Oliguria R34
[2020-08-31] MEDS: SEVELAMER HCL 800 MG TABLET PO SCH ×2 (13:19→16:37)
[2020-08-31] MEDS: NEPHROCAPS PO SCH (13:19)
--- NOTE | 2020-08-31 13:32 | Hospitalist Progress Note ---
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 Troponins were elevated but stayed stable and were around the same when he was here in December so may be baseline. BC ngtd. Sed rate 67. Will need 2 step prior to d/c Pt feels that he would benefit from home O2, particularly in the AM Continue Incentive spirometry (2) Elevated troponin: Pt without clear cut angina, but does have risk factors, did have 2 echos last admission( one that was ALONDRA) with preserved EF, continuing metoprolol. Held hydralazine and amlodipine due to normal blood pressures. Trop 0.074 on admission and essentially unchanged x2 after admission Trop 12/29/19 at 0.094, likely chronically elevated in the setting of CKD IV (3) COPD (chronic obstructive pulmonary disease): will be continued on duonebs, did check abg PT is slightly low but looks to be metabolic and not respiratory Will start prednisone 40 mg daily given increased O2 requirements - somewhat improved from 5L to 4L NC today (4) Chronic pancreatitis: has no complaints of abd pain, will continue creon (5) Insulin-requiring or dependent type II diabetes mellitus: Pt required iv insulin gtt initially but is now on subq insulin. Managed by pharmacy A1c 6.6 (6) Hypothyroidism (acquired): synthroid 88 mcg was [facility], however states this was not started yet Dose adjusted 08/27 (7) CKD (chronic kidney disease): Pt has CKD 4, Consulted nephrology - patient had dialysis treatment 08/29 Renal US showing chronic R hydronephrolsis - also seen in June Per urology consult 08/04 - patient needs to follow up outpatient for further work up and bladder biopsy (8) Smoker: nicotine patch (9) Abnormal finding on urinalysis: 3+ leuk est, neg nitrites, yeast noted Urine cx mixed skin nu - dc dapto (10) Positive blood culture: Overnight team called 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 Morales looks much better this morning than he did last night when he was a bit confused and depressed. Today he continues to feel somewhat unwell but did get a better night of sleep. ROS Constitutional: no chills, aches, sweats or fever Respiratory: no sob,cough, sputum, or wheezing Cardiac: no chest pain, palpitations, edema, orthopnea or lightheadedness GI: no abdominal pain, nausea, vomiting, diarrhea or constipation : no dysuria or hesitancy Extremities: no joint pain or weakness Skin: no rash All other systems reviewed and negative Physical Exam Physical Exam: General: no distress Eyes: normal inspection, PERLL Respiratory: chest non tender, expiratory wheezes bilaterally, no respiratory distress, no accessory muscle use Cardiac: regular rate and rhythm, no rub or gallop, no murmur, no edema, no jvd GI/: active bowel sounds, no abd pain or tenderness, soft, non distended Extremities: normal range of motion, normal strength, non tender Neuro/Psych: alert and oriented x 3, normal mood and affect Skin: normal color, dry Results & Data Results & Data ([facility]) Vital Signs (Past 12 Hours) Vital Signs Temp Pulse Pulse Pulse Resp BP BP 08/31/20 12:28 37.0 C 60 60 121/55 L 121/55 L 08/31/20 12:20 60 122/58 L 08/31/20 12:00 62 110/77 08/31/20 11:40 60 121/61 08/31/20 11:20 60 123/57 L 08/31/20 11:00 60 117/59 L 08/31/20 10:40 66 122/89 08/31/20 10:20 60 122/56 L 08/31/20 10:00 60 118/58 L 08/31/20 09:40 60 120/61 08/31/20 09:20 61 118/59 L 08/31/20 09:00 60 119/58 L 08/31/20 08:40 60 124/59 L 08/31/20 08:26 36.7 C 63 63 122/58 L 08/31/20 07:14 36.4 C L 60 16 144/69 H 08/31/20 07:01 20 08/31/20 03:05 60 20 Pulse Ox 08/31/20 12:28 08/31/20 12:20 08/31/20 12:00 08/31/20 11:40 08/31/20 11:20 08/31/20 11:00 08/31/20 10:40 08/31/20 10:20 08/31/20 10:00 08/31/20 09:40 08/31/20 09:20 08/31/20 09:00 08/31/20 08:40 08/31/20 08:26 08/31/20 07:14 90 08/31/20 07:01 94 08/31/20 03:05 94 PG Care Time/CCT Total # of Minutes Spent Total Time Spent with Patient: Total time spent is greater than 50% in coordination of care (as documented) at patient's floor/unit and/or counseling patient: Coding Level of Care Code 37028 Subseq Hosp Care Lvl 2 Diagnoses LLL pneumonia J18.9 Pneumonia type: due to unspecified organism Elevated troponin R77.8 COPD (chronic obstructive pulmonary disease) J44.9 COPD type: unspecified COPD Chronic pancreatitis K86.1 Pancreatitis type: unspecified pancreatitis type Insulin-requiring or dependent type II diabetes mellitus E11.9; Z79.4 Hypothyroidism (acquired) E03.9 CKD (chronic kidney disease) N18.9 Smoker F17.200 Abnormal finding on urinalysis R82.90 Positive blood culture R78.81 Hyponatremia E87.1 Constipation K59.00 DVT prophylaxis Z29.9 (1) LLL pneumonia Pneumonia type: due to unspecified organism Qualified Code(s): J18.9 - Pneumonia, unspecified organism (2) COPD (chronic obstructive pulmonary disease) COPD type: unspecified COPD Qualified Code(s): J44.9 - Chronic obstructive pulmonary disease, unspecified (3) Chronic pancreatitis Pancreatitis type: unspecified pancreatitis type Qualified Code(s): K86.1 - Other chronic pancreatitis
[2020-08-31] MEDS ORDERED: LOPERAMIDE HCL 2 MG CAP PO STA (20:21)
[2020-08-31] MEDS: INSULIN GLARGINE SOLOSTAR 100 UNITS/ML 3 ML PEN SC SCH (21:24)
[2020-09-01] MEDS: ALBUT/IPRATROP 3MG/0.5MG NEB 3 ML VIAL NEB SCH ×6 (02:00→22:49)
[2020-09-01] MEDS: LEVOTHYROXINE SODIUM 100 MCG TABLET PO SCH (05:50)
[2020-09-01 06:21] LABS: Hematocrit (blood only) 30.9 % (42-52); Hemoglobin 9.2 g/dL (14.0-18.0); Mean Corpuscular Hemoglobin 28.6 pg (25-34); Mean Corpuscular Hgb Conc 29.8 g/dL (32-36); Mean Platelet Volume 8.8 fL (7.4-10.4); Platelet Count 407 K/uL (130-400); RDW Coefficient of Variation 16.8 % (11.5-14.5); RDW Standard Deviation 56.8 fL (36.4-46.3); Red Blood Count 3.22 M/uL (4.7-6.1); White Blood Count 14.65 K/uL (4.8-10.8)
[2020-09-01 07:19] LABS: Albumin Globulin Ratio 0.3 (0.9-2); Albumin Level 1.6 gm/dl (3.4-5.0); BUN Creatinine Ratio 6.4 (10-20); Bilirubin,Total 0.3 mg/dl (0.2-1); Calcium 8.1 mg/dl (8.5-10.1); Est GFR (African American) 16.9; Est GFR (Non-African American) 14.6; Globulin 4.9 gm/dl (2.5-4.0); Potassium 3.5 mmol/L (3.5-5.1); Total Protein 6.5 gm/dl (6.4-8.2)
[2020-09-01] MEDS: NICOTINE 14 MG/24 HR PATCH TD SCH (08:18)
[2020-09-01] MEDS: HEPARIN SOD 5,000 UNIT/0.5 ML VIAL SQ SCH ×2 (08:18→21:36)
[2020-09-01] MEDS: predniSONE 20 MG TAB PO SCH (08:19)
[2020-09-01] MEDS: TAMSULOSIN HCL 0.4 MG CAP PO SCH (08:20)
[2020-09-01] MEDS: SEVELAMER HCL 800 MG TABLET PO SCH ×3 (08:20→16:47)
[2020-09-01] MEDS: GABAPENTIN 300 MG CAP PO SCH (08:20)
[2020-09-01] MEDS: PANCREAZE (LIPASE 10,500U) CAP PO SCH ×3 (08:21→16:47)
[2020-09-01] MEDS: NEPHROCAPS PO SCH (08:22)
[2020-09-01] MEDS: METOPROLOL TARTRATE 25 MG TAB PO SCH ×2 (08:23→21:40)
[2020-09-01] MEDS: INSULIN ASPART 100 UNITS/ML 3 ML PEN SC SCH ×5 (08:26→21:37)
[2020-09-01] MEDS: IRON SUCROSE 200 MG in 0.9 % SODIUM CHLORIDE 100 ML IV SCH (08:41)
[2020-09-01] MEDS ORDERED: NovoLIN-N (NPH) PER UNIT CHARGE SQ SCH (09:00)
--- NOTE | 2020-09-01 09:43 | Pharmacy Report ---
Pharmacy Glycemic Short Note 2 - Date of Service September 01, 2020 - Glycemic Short BSG Results (Last 24 hours): 08/31/20 08/31/20 08/31/20 11:56 17:03 20:33 Glucose POC Glucose 106 H 90 115 H 09/01/20 09/01/20 05:57 08:24 Glucose 86 POC Glucose 81 ASSESSMENT: 09/01: * SC received 65 units of insulin yesterday * 50 units of basal (15 units of Lantus; 35 units of NPH w/ prednisone) * 15 units of prandial/correctional * HD session yesterday * BSGs yesterday of 198, 106, 90, and 115 mg/dL - will loosen Novolog parameters and decrease NPH dose this morning * Fasting BSG of 81 mg/dL this morning -> will lower Lantus scale this evening * Continues on prednisone 40 mg PO daily -> will give NPH 20 units x 1 with this dose * Lunch BSG of 60 mg/dL - patient with asymptomatic hypoglycemia * Likely still too much NPH (despite significant reduction from yesterday) -> will plan to further reduce tomorrow * Will further loosen carb ratio 08/31: * Palomo received 20 units of insulin yesterday * 15 units basal + 5 units bolus * BSGs were well controlled at [phone] mg/dL * Patient is scheduled for HD session today. He was started on Prednisone 40 mg daily. First dose was received yesterday afternoon. * Fasting BSG was elevated at 198 mg/dL this morning. This is likely due to steroid administration. * Will add NPH dose at ~ 0.4 units/kg (based on adjusted body weight) to be given daily with Prednisone dose. The pharmacokinetic properties of NPH align with the duration of action of once daily prednisone which should help to maintain BSGs in goal range. If Prednisone is not given/held/discontinued for any reason, then do not administer the NPH dose and contact the glycemic pharmacist. * No changes will be made to Lantus or Novolog dose at this time PLAN FOR INPATIENT GLYCEMIC CONTROL: * Basal insulin - decrease NPH and Lantus * Lantus 0-15 units HS (see eMAR for more details) * NPH 20 units qAM (give with Prednisone dose) * Bolus insulin - loosen * NovoLog per scale ACHS or Q6hrs while NPO. Added 00 and 04 checks. * Goal Range: Low 110 mg/dL - High 140 mg/dL * Correction Factor: 25 mg/dL/unit * Nutritional / Prandial insulin per carb ratio of 1 unit per 10 grams CHO consumed DISCHARGE RECOMMENDATIONS: * HbA1c = 6.6% from this admission. This demonstrates excellent outpatient control of T2DM and is at goal. * Patient admits to poor appetite, decreased PO intake and weight loss of almost 20 lbs prior to admission. There is concern for hypoglycemia given current outpatient insulin dose. * Recommend: * SMBG at least 2 x per day * Patient should closely follow up with outpatient provider regarding BSGs once discharged to develop a plan in the event that he continues to have poor appetite and decreased PO intake. * Could consider a slight reduction in home insulin dose to ensure patient does not experience hypoglycemia. * Please note that the plan above was derived based on current level of insulin resistance and hospital stress. These recommendations are appropriate for inpatient admission only. Plan of care upon discharge will need to be reassessed to avoid potential outpatient hypo/hyperglycemia. Thank you.
--- NOTE | 2020-09-01 10:28 | Nephrology Progress Note ---
Date of Service September 01, 2020 Assessment & Plan (1) ESRD needing dialysis: Johnny has PMH of DM, HTN, CAD, h/o tobacco abuse, history of Agent [place] exposure, bradycardia requiring pacemaker placement, and chronic kidney disease. Palomo was admitted to [facility] from June 22- with decreased urine output and dysuria. Imaging revealed atrophic left kidney and moderate hydronephrosis on the right. Cystoscopy with stent placement was unsuccessful [facility]. Unfortunately, renal function worsened requiring initiation of dialysis and he has been maintained on TTS HD at [facility] under the care of Dr. Howell. There were two attempts at R IJ TDC placement but neither functioned well. The Left IJ was avoided due to pacer placement. A left femoral HD catheter was complicated by bacteremia. Dr. Bonilla then placed an AV graft in the left arm on 07/21/20. He was readmitted to [facility] 07/25/20 - 08/04/20 for evaluation of febrile illness. Cr had improved to 3.5, was nonoliguric and HD was held. Blood cultures were p ositive for Enterococcus faecalis, femoral dialysis catheter was removed and he completed a course of daptomycin via midline which was removed as an outpatient.. R percutaneous nephrostomy tube was removed on 08/04/20. He again presented to hospital on 08/25/2020 with progressive shortness of breath and decreased urine output. Hemodialysis was resumed on 08/27/2020 as renal function progressively worsened with creatinine above 6, oligo anuria with significant volume overload and respiratory distress. -- continue on TTS schedule, AV graft function well. -- dose medications for GFR less than for less than 10, right arm nephrology precaution, avoid IV fluid, renal diet. -- Epogen 58698 units x1 dose today -- on renal cap/d and Renvela 1 tab TIDM -- on Venofer 200 mg daily for 5 doses, last dose on 09/02/20. will follow (2) Acute respiratory failure with hypoxia: (3) Oliguria: Admission and Anticipated Discharge Date Admission Date: August 25, 2020 Subjective Johnny was seen and examined in his room this morning. Doing well, BP stable. Denies shortness of breath or chest pain. Review of Systems Review of Systems: All systems reviewed & are unremarkable except as noted in HPI & below Physical Exam Constitutional: WD/WN, vitals as above + ill appearing Respiratory: normal respiratory effort; no respiratory distress Auscultation: no wheezes Cardiovascular: RRR, no murmur, no edema Skin: no rashes, warm and dry Neurologic: awake; no focal motor deficits and not confused Psychiatric: Orientation: alert and oriented x 3 Results & Data ([facility]) Vital Signs (Past 12 Hours) Vital Signs Temp Pulse Resp BP Pulse Ox 09/01/20 07:49 61 20 91 09/01/20 07:05 36.7 C 59 L 16 146/69 H 92 09/01/20 02:02 61 16 91 09/01/20 00:32 37.1 C 63 16 151/66 H 91 08/31/20 22:43 92 PG Care Time/CCT Total # of Minutes Spent Total Time Spent with Patient: Total time spent is greater than 50% in coordination of care (as documented) at patient's floor/unit and/or counseling patient: Coding Level of Care Code 99487 Subseq Hosp Care Lvl 3 Diagnoses ESRD needing dialysis N18.6; Z99.2 Acute respiratory failure with hypoxia J96.01 Oliguria R34
[2020-09-01] MEDS ORDERED: CASPOFUNGIN 70 MG in SODIUM CHLORIDE 0.9% 250 ML IV ONE (16:00)
--- NOTE | 2020-09-01 19:12 | Hospitalist Progress Note ---
Date of Service September 01, 2020 Assessment & Plan (1) Candidemia: 1 of four blood cultures growing domenico glabrata complex. Discussed with Samia GATICA - recommend treating with caspofungin. Formal consult pending. 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 Completed 7 days of Zosyn Will need 2 step prior to d/c Pt feels that he would benefit from home O2, particularly in the AM Continue Incentive spirometry (3) Elevated troponin: Pt without clear cut angina, but does have risk factors, did have 2 echos last admission( one that was ALONDRA) with preserved EF, continuing metoprolol. Held hydralazine and amlodipine due to normal blood pressures. Trop 0.074 on admission and essentially unchanged x2 after admission Trop 12/29/19 at 0.094, likely chronically elevated in the setting of CKD IV (4) COPD (chronic obstructive pulmonary disease): Continue duonebs, did check abg PT is slightly low but looks to be metabolic and not respiratory Continue prednisone 40 mg daily given increased O2 requirements - somewhat improved from 5L to 4L NC today (5) Chronic pancreatitis: has no complaints of abd pain, will continue creon (6) Insulin-requiring or dependent type II diabetes mellitus: Pt required iv insulin gtt initially but is now on subq insulin. Managed by pharmacy A1c 6.6 (7) Hypothyroidism (acquired): synthroid 88 mcg was recently increased to 100mcg by NC, however stat es this was not started yet Dose adjusted 08/27 (8) CKD (chronic kidney disease): Pt has CKD 4, Consulted nephrology - patient had dialysis treatment 08/29 Renal US showing chronic R hydronephrolsis - also seen in June Per urology consult 08/04 - patient needs to follow up outpatient for further work up and bladder biopsy (9) Smoker: nicotine patch (10) Abnormal finding on urinalysis: 3+ leuk est, neg nitrites, yeast noted Urine cx mixed skin nu - dc'd dapto (11) Positive blood culture: As above (12) Hyponatremia: Resolved (13) Constipation: Resolved (14) DVT prophylaxis: heparin sc bid Pt states that [facility] to get him approved for a [facility] for use when away from home PT/OT - recommending rehab but patient is refusing. He and his feel he can come home. is attempting to find some caregivers to come in for a few hours each day. Admission and Anticipated Discharge Date Admission Date: August 25, 2020 Subjective Mr. Morales is feeling run down overall. No specific complaints ROS Constitutional: no chills, aches, sweats or fever Respiratory: no sob,cough, sputum, or wheezing Cardiac: no chest pain, palpitations, edema, orthopnea or lightheadedness GI: no abdominal pain, nausea, vomiting, diarrhea or constipation : no dysuria or hesitancy Extremities: no joint pain or weakness Skin: no rash All other systems reviewed and negative Physical Exam Physical Exam: General: no distress Eyes: normal inspection, PERLL Respiratory: chest non tender, clear to auscultation, normal breath sounds, no respiratory distress, no accessory muscle use Cardiac: regular rate and rhythm, no rub or gallop, no murmur, no edema, no jvd GI/: active bowel sounds, no abd pain or tenderness, soft, non distended Extremities: normal range of motion, normal strength, non tender Neuro/Psych: alert and oriented x 3, normal mood and affect Skin: normal color, dry Results & Data Results & Data ([facility]) Vital Signs (Past 12 Hours) Vital Signs Temp Pulse Resp BP Pulse Ox 09/01/20 18:57 91 09/01/20 18:00 91 09/01/20 17:57 20 90 09/01/20 16:54 37.1 C 61 18 149/67 H 90 09/01/20 15:07 60 18 92 09/01/20 11:07 59 L 20 93 09/01/20 07:49 61 20 91 PG Care Time/CCT Total # of Minutes Spent Total Time Spent with Patient: Total time spent is greater than 50% in coordination of care (as documented) at patient's floor/unit and/or counseling patient: Coding Level of Care Code 25992 Subseq Hosp Care Lvl 3 Diagnoses Candidemia B37.7 LLL pneumonia J18.9 Pneumonia type: due to unspecified organism Elevated troponin R77.8 COPD (chronic obstructive pulmonary disease) J44.9 COPD type: unspecified COPD Chronic pancreatitis K86.1 Pancreatitis type: unspecified pancreatitis type Insulin-requiring or dependent type II diabetes mellitus E11.9; Z79.4 Hypothyroidism (acquired) E03.9 CKD (chronic kidney disease) N18.9 Smoker F17.200 Abnormal finding on urinalysis R82.90 Positive blood culture R78.81 Hyponatremia E87.1 Constipation K59.00 DVT prophylaxis Z29.9 (1) Chronic pancreatitis Pancreatitis type: unspecified pancreatitis type Qualified Code(s): K86.1 - Other chronic pancreatitis (2) COPD (chronic obstructive pulmonary disease) COPD type: unspecified COPD Qualified Code(s): J44.9 - Chronic obstructive pulmonary disease, unspecified (3) LLL pneumonia Pneumonia type: due to unspecified organism Qualified Code(s): J18.9 - Pneumonia, unspecified organism
[2020-09-01] MEDS: INSULIN GLARGINE SOLOSTAR 100 UNITS/ML 3 ML PEN SC SCH (21:36)
[2020-09-02] MEDS: ALBUT/IPRATROP 3MG/0.5MG NEB 3 ML VIAL NEB SCH ×3 (03:35→11:36)
[2020-09-02] MEDS: LEVOTHYROXINE SODIUM 100 MCG TABLET PO SCH (05:50)
[2020-09-02] MEDS: INSULIN ASPART 100 UNITS/ML 3 ML PEN SC SCH ×4 (08:26→20:51)
[2020-09-02] MEDS: HEPARIN SOD 5,000 UNIT/0.5 ML VIAL SQ SCH ×2 (08:30→20:42)
[2020-09-02] MEDS: METOPROLOL TARTRATE 25 MG TAB PO SCH ×2 (08:32→20:52)
[2020-09-02] MEDS: NICOTINE 14 MG/24 HR PATCH TD SCH (08:32)
[2020-09-02] MEDS: PANCREAZE (LIPASE 10,500U) CAP PO SCH ×3 (08:33→18:00)
[2020-09-02] MEDS: predniSONE 20 MG TAB PO SCH (08:49)
[2020-09-02] MEDS: SEVELAMER HCL 800 MG TABLET PO SCH ×3 (08:49→18:00)
[2020-09-02] MEDS: CASPOFUNGIN 50 MG in SODIUM CHLORIDE 0.9% 250 ML IV SCH (08:49)
[2020-09-02] MEDS: TAMSULOSIN HCL 0.4 MG CAP PO SCH (08:50)
[2020-09-02] MEDS: NEPHROCAPS PO SCH (08:50)
[2020-09-02] MEDS: GABAPENTIN 300 MG CAP PO SCH (08:50)
[2020-09-02] MEDS ORDERED: NovoLIN-N (NPH) PER UNIT CHARGE SQ SCH (09:00)
[2020-09-02 09:03] LABS: Hematocrit (blood only) 32.3 % (42-52); Hemoglobin 9.6 g/dL (14.0-18.0); Mean Corpuscular Hemoglobin 28.5 pg (25-34); Mean Corpuscular Hgb Conc 29.7 g/dL (32-36); Mean Corpuscular Volume 95.8 fL (80-100); Mean Platelet Volume 8.6 fL (7.4-10.4); Nucleated RBC # (auto) 0.04 K/uL (0-0); Nucleated RBC % (auto) 0.3 %; Platelet Count 386 K/uL (130-400); RDW Coefficient of Variation 16.7 % (11.5-14.5); RDW Standard Deviation 56.8 fL (36.4-46.3); Red Blood Count 3.37 M/uL (4.7-6.1); White Blood Count 15.48 K/uL (4.8-10.8)
[2020-09-02 10:02] LABS: Albumin Globulin Ratio 0.4 (0.9-2); Albumin Level 1.8 gm/dl (3.4-5.0); BUN Creatinine Ratio 6.8 (10-20); Bilirubin,Total 0.4 mg/dl (0.2-1); Calcium 8.4 mg/dl (8.5-10.1); Creatinine Clr Calc Pharmacy 15.4 ml/min; Est GFR (African American) 11.6; Globulin 4.8 gm/dl (2.5-4.0); Potassium 3.6 mmol/L (3.5-5.1); Total Protein 6.6 gm/dl (6.4-8.2)
--- NOTE | 2020-09-02 11:24 | Pharmacy Report ---
Pharmacy Glycemic Short Note 2 - Date of Service September 02, 2020 - Glycemic Short BSG Results (Last 24 hours): 09/01/20 09/01/20 09/01/20 12:12 12:59 16:55 Glucose POC Glucose 60 L* 102 H 222 H 09/01/20 09/02/20 09/02/20 20:26 08:04 08:46 Glucose 104 H POC Glucose 195 H 111 H ASSESSMENT: 09/02: * SC received 43 units of insulin yesterday * 30 units of basal (10 units of Lantus; 20 units of NPH w/ prednisone) * BSGs yesterday of 81, 60, 222, and 195 mg/dL * Continues on prednisone 40 mg PO daily -> NPH 16 units given today, which is a 20% reduction from yesterday's dose * 1 of 4 blood cultures growing Mary glabrata - now receiving caspofungin IV * Hemodialysis scheduled for tomorrow 09/03 09/01: * SC received 65 units of insulin yesterday * 50 units of basal (15 units of Lantus; 35 units of NPH w/ prednisone) * 15 units of prandial/correctional * HD session yesterday * BSGs yesterday of 198, 106, 90, and 115 mg/dL - will loosen Novolog parameters and decrease NPH dose this morning * Fasting BSG of 81 mg/dL this morning -> will lower Lantus scale this evening * Continues on prednisone 40 mg PO daily -> will give NPH 20 units x 1 with this dose * Lunch BSG of 60 mg/dL - patient with asymptomatic hypoglycemia * Likely still too much NPH (despite significant reduction from yesterday) -> will plan to further reduce tomorrow * Will further loosen carb ratio 08/31: * Palomo received 20 units of insulin yesterday * 15 units basal + 5 units bolus * BSGs were well controlled at [phone] mg/dL * Patient is scheduled for HD session today. He was started on Prednisone 40 mg daily. First dose was received yesterday afternoon. * Fasting BSG was elevated at 198 mg/dL this morning. This is likely due to steroid administration. * Will add NPH dose at ~ 0.4 units/kg (based on adjusted body weight) to be given daily with Prednisone dose. The pharmacokinetic properties of NPH align with the duration of action of once daily prednisone which should help to maintain BSGs in goal range. If Prednisone is not given/held/discontinued for any reason, then do not administer the NPH dose and contact the glycemic pharmacist. * No changes will be made to Lantus or Novolog dose at this time PLAN FOR INPATIENT GLYCEMIC CONTROL: * Basal insulin - decrease NPH and continue Lantus scale * Lantus 0-15 units HS (see eMAR for more details) * NPH 16 units qAM (give with Prednisone dose) * Bolus insulin - tighten carb ratio back to 8 * NovoLog per scale ACHS or Q6hrs while NPO. * Goal Range: Low 110 mg/dL - High 140 mg/dL * Correction Factor: 25 mg/dL/unit * Nutritional / Prandial insulin per carb ratio of 1 unit per 8 grams CHO consumed DISCHARGE RECOMMENDATIONS: * HbA1c = 6.6% from this admission. This demonstrates excellent outpatient control of T2DM and is at goal. * Patient admits to poor appetite, decreased PO intake and weight loss of almost 20 lbs prior to admission. There is concern for hypoglycemia given current outpatient insulin dose. * Recommend: * SMBG at least 2 x per day * Patient should closely follow up with outpatient provider regarding BSGs once discharged to develop a plan in the event that he continues to have poor appetite and decreased PO intake. * Could consider a slight reduction in home insulin dose to ensure patient does not experience hypoglycemia. * Please note that the plan above was derived based on current level of insulin resistance and hospital stress. These recommendations are appropriate for inpatient admission only. Plan of care upon discharge will need to be reassessed to avoid potential outpatient hypo/hyperglycemia. Thank you.
--- NOTE | 2020-09-02 11:43 | Nephrology Progress Note ---
Date of Service September 02, 2020 Assessment & Plan (1) ESRD needing dialysis: Johnny has PMH of DM, HTN, CAD, h/o tobacco abuse, history of Agent [place] exposure, bradycardia requiring pacemaker placement, and chronic kidney disease. Palomo was admitted to [facility] from June 22- with decreased urine output and dysuria. Imaging revealed atrophic left kidney and moderate hydronephrosis on the right. Cystoscopy with stent placement was unsuccessful and transferred to [facility] for percutaneous nephrostomy tube placement. Unfortunately, renal function worsened requiring initiation of dialysis and he has been maintained on TTS HD at [facility] under the care of Dr. Howell. There were two attempts at R IJ TDC placement but neither functioned well. The Left IJ was avoided due to pacer placement. A left femoral HD catheter was complicated by bacteremia. Dr. Bonilla then placed an AV graft in the left arm on 07/21/20. He was readmitted to [facility] 07/25/20 - 08/04/20 for evaluation of febrile illness. Cr had improved to 3.5, was nonoliguric and HD was held. Blood cultures were p ositive for Enterococcus faecalis, femoral dialysis catheter was removed and he completed a course of daptomycin via midline which was removed as an outpatient.. R percutaneous nephrostomy tube was removed on 08/04/20. He again presented to hospital on 08/25/2020 with progressive shortness of breath and decreased urine output. Hemodialysis was resumed on 08/27/2020 as renal function progressively worsened with creatinine above 6, oligo anuria with significant volume overload and respiratory distress. -- continue on TTS schedule, AV graft function well. Possible DC on Saturday and next HD at outpt unit next Saturday. -- dose medications for GFR less than for less than 10, right arm nephrology precaution, avoid IV fluid, renal diet. -- Epogen 59101 units x1 dose on 09/01/20 -- on renal cap/d and Renvela 1 tab TIDM -- on Venofer 200 mg daily for 5 doses, last dose on 09/02/20. will follow (2) Acute respiratory failure with hypoxia: (3) Oliguria: Admission and Anticipated Discharge Date Admission Date: August 25, 2020 Subjective Johnny was seen and examined in his room this morning. Doing well, BP stable. Denies shortness of breath or chest pain. Doing PT. Appetite improved. Review of Systems 2 Review of Systems: All systems reviewed & are unremarkable except as noted in HPI & below Physical Exam Constitutional: WD/WN, vitals as above + ill appearing Respiratory: normal respiratory effort; no respiratory distress Auscultation: no wheezes Cardiovascular: RRR, no murmur, no edema Extremities: + AV fistula (rt BC AVG) Skin: no rashes, warm and dry Neurologic: awake; no focal motor deficits and not confused Psychiatric: Orientation: alert and oriented x 3 Results & Data ([facility]) Vital Signs (Past 12 Hours) Vital Signs Temp Pulse Resp BP Pulse Ox 09/02/20 07:06 67 18 95 09/02/20 07:04 36.8 C 55 L 16 138/66 09/02/20 03:58 145/65 H 09/02/20 03:36 63 18 92 PG Care Time/CCT Total # of Minutes Spent Total Time Spent with Patient: Total time spent is greater than 50% in coordination of care (as documented) at patient's floor/unit and/or counseling patient: Coding Level of Care Code 89740 Subseq Hosp Care Lvl 3 Diagnoses ESRD needing dialysis N18.6; Z99.2 Acute respiratory failure with hypoxia J96.01 Oliguria R34
[2020-09-02] MEDS: ALBUT/IPRATROP 3MG/0.5MG NEB 3 ML VIAL NEB PRN (14:28)
--- NOTE | 2020-09-02 16:12 | XCELERA ---
[id number]
--- NOTE | 2020-09-02 16:59 | Hospitalist Progress Note ---
Date of Service September 02, 2020 Assessment & Plan (1) Candidemia: 1 of four blood cultures growing domenico glabrata complex. 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 Completed 7 days of Zosyn Will need 2 step prior to d/c Pt feels that he would benefit from home O2, particularly in the AM Continue Incentive spirometry With coughing episode today, will repeat CXR and consult speech (3) Elevated troponin: Pt without clear cut angina, but does have risk factors, did have 2 echos last admission( one that was ALONDRA) with preserved EF, continuing metoprolol. Held hydralazine and amlodipine due to normal blood pressures. Trop 0.074 on admission and essentially unchanged x2 after admission Trop 12/29/19 at 0.094, likely chronically elevated in the setting of CKD IV (4) COPD (chronic obstructive pulmonary disease): Continue duonebs, did check abg PT is slightly low but looks to be metabolic and not respiratory Continue prednisone 40 mg daily given increased O2 requirements - somewhat improved from 5L to 4L NC (5) Chronic pancreatitis: has no complaints of abd pain, will continue creon (6) Insulin-requiring or dependent type II diabetes mellitus: Pt required iv insulin gtt initially but is now on subq insulin. Managed by pharmacy A1c 6.6 (7) Hypothyroidism (acquired): synthroid 88 mcg [facility], however states this was not started yet Dose adjusted 08/27 (8) CKD (chronic kidney disease): Pt has CKD 4, Consulted nephrology - patient had dialysis treatment 08/29 Renal US showing chronic R hydronephrolsis - also seen in June Per urology consult 08/04 - patient needs to follow up outpatient for further work up and bladder biopsy (9) Smoker: nicotine patch (10) Abnormal finding on urinalysis: 3+ leuk est, neg nitrites, yeast noted Urine cx mixed skin nu - dc'd dapto (11) Positive blood culture: As above (12) Hyponatremia: Resolved (13) Constipation: Resolved (14) DVT prophylaxis: heparin sc bid Pt states that [facility] get [facility] for use when away from home PT/OT - recommending rehab but patient is refusing. He and his feel he can come home. is attempting to find some caregivers to come in for a few hours each day. Patient is very fatigued and deconditioned. Today he asked if he should have dialysis tomorrow and expresses his deep wish to go home. We talked briefly about his goals of care and that balancing quality of life with quantity of treatment is important to keep in mind. I think giving the caspofungin some time to work before initiating a palliative care consult is prudent as the candidemia may be contributing to his extreme fatigue, but if his hospitalization continues to extend out into next week may be helpful to further discuss goals with palliative team given his multiple recent and prolonged hospitalizations and general failure to thrive. Admission and Anticipated Discharge Date Admission Date: August 25, 2020 Subjective Mr. Morales is feeling very unwell today generally, fatigued. This afternoon he had an episode of severe productive coughing after eating. He denies any pain. ROS Constitutional: no chills, aches, sweats or fever Respiratory: no sob,cough, sputum, or wheezing Cardiac: no chest pain, palpitations, edema, orthopnea or lightheadedness GI: no abdominal pain, nausea, vomiting, diarrhea or constipation : no dysuria or hesitancy Extremities: no joint pain or weakness Skin: no rash All other systems reviewed and negative Physical Exam Physical Exam: General: no distress Eyes: normal inspection, PERLL Respiratory: chest non tender, expiratory wheezes, no respiratory distress, no accessory muscle use Cardiac: regular rate and rhythm, no rub or gallop, no murmur, no edema, no jvd GI/: active bowel sounds, no abd pain or tenderness, soft, non distended Extremities: normal range of motion, normal strength, non tender Neuro/Psych: alert and oriented x 3, normal mood and affect Skin: normal color, dry Results & Data Results & Data ([facility]) Vital Signs (Past 12 Hours) Vital Signs Temp Pulse Resp BP Pulse Ox 09/02/20 14:28 61 20 91 09/02/20 14:22 37 C 72 20 140/68 92 09/02/20 07:06 67 18 95 09/02/20 07:04 36.8 C 55 L 16 138/66 PG Care Time/CCT Total # of Minutes Spent Total Time Spent with Patient: Total time spent is greater than 50% in coordination of care (as documented) at patient's floor/unit and/or counseling p atient: Coding Level of Care Code 23753 Subseq Hosp Care Lvl 3 Diagnoses Candidemia B37.7 LLL pneumonia J18.9 Pneumonia type: due to unspecified organism Elevated troponin R77.8 COPD (chronic obstructive pulmonary disease) J44.9 COPD type: unspecified COPD Chronic pancreatitis K86.1 Pancreatitis type: unspecified pancreatitis type Insulin-requiring or dependent type II diabetes mellitus E11.9; Z79.4 Hypothyroidism (acquired) E03.9 CKD (chronic kidney disease) N18.9 Smoker F17.200 Abnormal finding on urinalysis R82.90 Positive blood culture R78.81 Hyponatremia E87.1 Constipation K59.00 DVT prophylaxis Z29.9 (1) LLL pneumonia Pneumonia type: due to unspecified organism Qualified Code(s): J18.9 - Pneumonia, unspecified organism (2) COPD (chronic obstructive pulmonary disease) COPD type: unspecified COPD Qualified Code(s): J44.9 - Chronic obstructive pulmonary disease, unspecified (3) Chronic pancreatitis Pancreatitis type: unspecified pancreatitis type Qualified Code(s): K86.1 - Other chronic pancreatitis
--- NOTE | 2020-09-02 17:43 | XRay Report ---
XR chest 2V PA/lateral HISTORY: 74 years-old Male r/o aspiration acute shortness of breath COMPARISON: Chest radiograph 08/27/2020 TECHNIQUE: AP and lateral views of the chest FINDINGS: Limited exam secondary to positioning. Left subclavian pacer. There is mild interstitial coarsening o f the right lung. There is a probable trace right pleural effusion. There is now complete opacificati on of the left hemithorax. Degenerative changes of the shoulders and spine. IMPRESSION: 1. Complete opacification of the left hemithorax has progressively worsened from comparison. This lik serene represents a combination of consolidation/atelectasis with pleural effusion. 2. Mild interstitial coarsening throughout the right lung suggests pulmonary vascular congestion. ACT 112: Negative or not required by law. The above report was generated using voice recognition software. It may contain grammatical, syntax o r spelling errors. Electronically signed by: Michael Truong M.D. 09/02/2020 5:42 PM
[2020-09-02] MEDS: INSULIN GLARGINE SOLOSTAR 100 UNITS/ML 3 ML PEN SC SCH (20:51)
[2020-09-03] MEDS: ALBUT/IPRATROP 3MG/0.5MG NEB 3 ML VIAL NEB PRN ×2 (03:33→19:26)
[2020-09-03] MEDS: LEVOTHYROXINE SODIUM 100 MCG TABLET PO SCH (05:52)
[2020-09-03] MEDS: METOPROLOL TARTRATE 25 MG TAB PO SCH ×2 (08:53→20:47)
[2020-09-03] MEDS: NICOTINE 14 MG/24 HR PATCH TD SCH (08:54)
[2020-09-03] MEDS: HEPARIN SOD 5,000 UNIT/0.5 ML VIAL SQ SCH ×2 (08:54→20:47)
[2020-09-03] MEDS: PANCREAZE (LIPASE 10,500U) CAP PO SCH ×3 (08:56→17:49)
[2020-09-03] MEDS: NEPHROCAPS PO SCH (08:57)
[2020-09-03] MEDS: TAMSULOSIN HCL 0.4 MG CAP PO SCH (08:57)
[2020-09-03] MEDS: predniSONE 20 MG TAB PO SCH (08:57)
[2020-09-03] MEDS: GABAPENTIN 300 MG CAP PO SCH (08:57)
[2020-09-03] MEDS: SEVELAMER HCL 800 MG TABLET PO SCH ×3 (08:58→17:50)
[2020-09-03] MEDS: INSULIN ASPART 100 UNITS/ML 3 ML PEN SC SCH ×4 (09:00→20:47)
[2020-09-03 09:41] LABS: Hematocrit (blood only) 29.7 % (42-52); Hemoglobin 8.9 g/dL (14.0-18.0); Mean Corpuscular Volume 96.7 fL (80-100); Mean Platelet Volume 8.8 fL (7.4-10.4); Platelet Count 402 K/uL (130-400); RDW Coefficient of Variation 16.9 % (11.5-14.5); RDW Standard Deviation 56.5 fL (36.4-46.3); Red Blood Count 3.07 M/uL (4.7-6.1); White Blood Count 15.52 K/uL (4.8-10.8)
[2020-09-03] MEDS ORDERED: NovoLIN-N (NPH) PER UNIT CHARGE SQ ONE (10:00)
[2020-09-03 10:24] LABS: Albumin Level 1.7 gm/dl (3.4-5.0); Calcium 7.7 mg/dl (8.5-10.1); Creatinine Clr Calc Pharmacy 13.7 ml/min; Est GFR (African American) 10.1; Est GFR (Non-African American) 8.7; Phosphorus 5.8 mg/dl (2.5-4.9)
[2020-09-03] MEDS: UMECLIDINIUM BROMIDE 62.5MCG/BLISTER 7 PUFFS/INHALER INH SCH (10:37)
--- NOTE | 2020-09-03 14:14 | Nephrology Progress Note ---
Date of Service September 03, 2020 Assessment & Plan (1) ESRD needing dialysis: Qb at goal. AVG functioning well. Clearance has been adequate. Volume status controlled. Unfortunately, overall functional status declined. [facility] has some questions regarding transportation to dialysis as outpatient. Remains on HD TTS. Plan to continue HD at [facility] post discharge under the care of Dr. Dugan. Medications are appropriately dosed for kidney function. Renal MVI daily. Renvela QAC for hyperphosphatemia. (2) Anemia: Venofer completed during recent admission. Epogen provided Q Saturday as inpatient. Admission and Anticipated Discharge Date Admission Date: August 25, 2020 Shira Culver was seen and evaluated during hemodialysis this morning. His was at the bedside. I reviewed the plan of care with Dr. Amin. Palomo was tolerating HD well. Unfortunately he remains significantly weak. Appetite is poor. No fevers or chills. Diarrhea started overnight. No blood in stool noted. Denies significant abdominal pain. Urine output decreased. Review of Systems Review of Systems: All systems reviewed & are unremarkable except as noted in HPI & below Physical Exam Constitutional: well developed and + frail appearing; no acute distress Eyes: + anicteric sclerae; no corneal abnormality ENMT: Mouth: no oral mucosal abnormality and oral mucous membranes not dry Neck: normal visual inspection and trachea midline Respiratory: normal respiratory effort Auscultation: lungs clear to auscultation bilaterally Cardiovascular: Rate/Rhythm: regular rate Heart Sounds: normal S1 and normal S2 Extremities: no edema Musculoskeletal: Extremities: no cyanosis and no clubbing Skin: normal turgor; no lesions Neurologic: Motor/Sensory: no tremor and no asterixis Psychiatric: Orientation: alert and oriented x 3 Results & Data ([facility]) Vital Signs (Past 12 Hours) Vital Signs Temp Pulse Pulse Pulse Pulse Resp BP 09/03/20 13:15 36.8 C 59 L 59 L 09/03/20 13:00 63 165/72 H 09/03/20 12:40 55 L 148/65 H 09/03/20 12:20 60 160/103 H 09/03/20 12:00 59 L 151/67 H 09/03/20 11:40 68 166/74 H 09/03/20 11:20 57 L 120/77 09/03/20 11:00 53 L 149/70 H 09/03/20 10:40 64 134/67 09/03/20 10:20 50 L 155/60 H 09/03/20 10:00 60 155/66 H 09/03/20 09:40 63 160/60 H 09/03/20 09:20 60 163/70 H 09/03/20 09:02 36.8 C 60 09/03/20 07:28 36.9 C 60 18 09/03/20 03:35 59 L 20 BP Pulse Ox 09/03/20 13:15 166/66 H 09/03/20 13:00 09/03/20 12:40 09/03/20 12:20 09/03/20 12:00 09/03/20 11:40 09/03/20 11:20 09/03/20 11:00 09/03/20 10:40 09/03/20 10:20 09/03/20 10:00 09/03/20 09:40 09/03/20 09:20 09/03/20 09:02 09/03/20 07:28 171/68 H 94 09/03/20 03:35 94 Laboratory Results Laboratory Results - last 24 hr 09/02/20 09/02/20 09/03/20 17:57 20:41 08:16 WBC RBC Hgb Hct MCV MCH MCHC RDW Std Deviation RDW Coeff of Hilda Plt Count MPV Sodium Potassium Chloride Carbon Dioxide Anion Gap BUN Creatinine Est Cr Clr Drug Dosing Est GFR ( Amer) Est GFR (Non-Af Amer) BUN/Creatinine Ratio Glucose POC Glucose 111 H 167 H 238 H Calcium Phosphorus Albumin Stl C. diff Tox B Gene 09/03/20 09/03/20 09/03/20 09:30 09:30 11:10 WBC 15.52 H RBC 3.07 L Hgb 8.9 L Hct 29.7 L MCV 96.7 MCH 29.0 MCHC 30.0 L RDW Std Deviation 56.5 H RDW Coeff of Hilda 16.9 H Plt Count 402 H MPV 8.8 Sodium 136 Potassium 4.0 Chloride 98 Carbon Dioxide 27 Anion Gap 11.0 BUN 54 H D Creatinine 5.94 H* D Est Cr Clr Drug Dosing 13.7 Est GFR ( Amer) 10.1 Est GFR (Non-Af Amer) 8.7 BUN/Creatinine Ratio 9.0 L Glucose 233 H POC Glucose Calcium 7.7 L Phosphorus 5.8 H Albumin 1.7 L Stl C. diff Tox B Gene Negative Cdiff Gene 09/03/20 11:55 WBC RBC Hgb Hct MCV MCH MCHC RDW Std Deviation RDW Coeff of Hilda Plt Count MPV Sodium Potassium Chloride Carbon Dioxide Anion Gap BUN Creatinine Est Cr Clr Drug Dosing Est GFR ( Amer) Est GFR (Non-Af Amer) BUN/Creatinine Ratio Glucose POC Glucose 152 H Calcium Phosphorus Albumin Stl C. diff Tox B Gene PG Care Time/CCT Total # of Minutes Spent Total Time Spent with Patient: Total time spent is greater than 50% in coordination of care (as documented) at patient's floor/unit and/or counseling patient: Coding Level of Care Code 66273 Subseq Hosp Care Lvl 3 Diagnoses ESRD needing dialysis N18.6; Z99.2 Anemia D64.9
[2020-09-03] MEDS: CASPOFUNGIN 50 MG in SODIUM CHLORIDE 0.9% 250 ML IV SCH (14:15)
--- NOTE | 2020-09-03 15:22 | Hospitalist Progress Note ---
Date of Service September 03, 2020 Assessment & Plan (1) Candidemia: 1 of four blood cultures growing domenico glabrata complex. 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 Completed 7 days of Zosyn Repeat CXR showing complete opacification of left lung. Will discuss with pulm (3) Elevated troponin: Pt without clear cut angina, but does have risk factors, did have 2 echos last admission( one that was ALONDRA) with preserved EF, continuing metoprolol. Held hydralazine and amlodipine due to normal blood pressures. Trop 0.074 on admission and essentially unchanged x2 after admission Trop 12/29/19 at 0.094, likely chronically elevated in the setting of CKD IV (4) COPD (chronic obstructive pulmonary disease): Continue duonebs, did check abg PT is slightly low but looks to be metabolic and not respiratory Discontinue prednisone 40 mg which was given for 5 days (5) Chronic pancreatitis: has no complaints of abd pain, will continue creon (6) Insulin-requiring or dependent type II diabetes mellitus: Pt required iv insulin gtt initially but is now on subq insulin. Managed by pharmacy A1c 6.6 (7) Hypothyroidism (acquired): synthroid 88 mcg was [facility], however states this was not started yet Dose adjusted 08/27 (8) CKD (chronic kidney disease): Pt has CKD 4, Consulted nephrology - patient had dialysis treatment 08/29 Renal US showing chronic R hydronephrolsis - also seen in June Per urology consult 08/04 - patient needs to follow up outpatient for further work up and bladder biopsy (9) Smoker: nicotine patch (10) Abnormal finding on urinalysis: 3+ leuk est, neg nitrites, yeast noted Urine cx mixed skin nu - dc'd dapto (11) Positive blood culture: As above (12) Hyponatremia: Resolved (13) Constipation: Resolved (14) DVT prophylaxis: heparin sc bid Pt states that [facility] get [facility] for [facility] for use when away from home PT/OT - recommending rehab but patient is refusing. He and his feel he can come home. is attempting to find some caregivers to come in for a few hours each day Mr. Morales has multiple issues at hand with severe deconditioning and poor nutritional status. His prognosis is poor at this point. Will consult palliative for a goals of care discussion on Saturday. Admission and Anticipated Discharge Date Admission Date: August 25, 2020 Supervising Physician Co-Signing Physician Notes Patient seen and examined with Sydnie SARMIENTO. I agree with her exam findings, review of systems, assessment and plan. I personally reviewed the lab work and imaging as well. - Left sided white out on CXR discussed CXR with Dr. Roche, evidence of mucous plugging but also pleural effusion on the left recommended Mucomyst 20% 5mL q12 x 6 doses, flutter valve will make NPO after midnight and hold heparin plan for possible thoracentesis and bronchoscopy tomorrow discussed with Dr Perry today, appreciate his assistance Subjective Mr. Morales is very tired. He has had multiple stools today and feels wiped out from all of the turning and cleaning. Had dialysis this morning. ROS Constitutional: no chills, aches, sweats or fever Respiratory: no sob,cough, sputum, or wheezing Cardiac: no chest pain, palpitations, edema, orthopnea or lightheadedness GI: no abdominal pain, nausea, vomiting, constipation : no dysuria or hesitancy Extremities: no joint pain or weakness Skin: no rash All other systems reviewed and negative Physical Exam Physical Exam: General: no distress Eyes: normal inspection, PERLL Respiratory: chest non tender, clear to auscultation, normal breath sounds, no respiratory distress, no accessory muscle use Cardiac: regular rate and rhythm, no rub or gallop, no murmur, no edema, no jvd GI/: active bowel sounds, no abd pain or tenderness, soft, non distended Extremities: normal range of motion, normal strength, non tender Neuro/Psych: alert and oriented x 3, normal mood and affect Skin: normal color, dry Results & Data Results & Data ([facility]) Vital Signs (Past 12 Hours) Vital Signs Temp Pulse Pulse Pulse Pulse Resp BP 09/03/20 13:15 36.8 C 59 L 59 L 09/03/20 13:00 63 165/72 H 09/03/20 12:40 55 L 148/65 H 09/03/20 12:20 60 160/103 H 09/03/20 12:00 59 L 151/67 H 09/03/20 11:40 68 166/74 H 09/03/20 11:20 57 L 120/77 09/03/20 11:00 53 L 149/70 H 09/03/20 10:40 64 134/67 09/03/20 10:20 50 L 155/60 H 09/03/20 10:00 60 155/66 H 09/03/20 09:40 63 160/60 H 09/03/20 09:20 60 163/70 H 09/03/20 09:02 36.8 C 60 09/03/20 07:28 36.9 C 60 18 09/03/20 03:35 59 L 20 BP Pulse Ox 09/03/20 13:15 166/66 H 09/03/20 13:00 09/03/20 12:40 09/03/20 12:20 09/03/20 12:00 09/03/20 11:40 09/03/20 11:20 09/03/20 11:00 09/03/20 10:40 09/03/20 10:20 09/03/20 10:00 09/03/20 09:40 09/03/20 09:20 09/03/20 09:02 09/03/20 07:28 171/68 H 94 09/03/20 03:35 94 PG Care Time/CCT Total # of Minutes Spent Total Time Spent with Patient: Total time spent is greater than 50% in coordination of care (as documented) at patient's floor/unit and/or counseling patient: Coding Level of Care Code 54873 Subseq Hosp Care Lvl 3 Diagnoses Candidemia B37.7 LLL pneumonia J18.9 Pneumonia type: due to unspecified organism Elevated troponin R77.8 COPD (chronic obstructive pulmonary disease) J44.9 COPD type: unspecified COPD Chronic pancreatitis K86.1 Pancreatitis type: unspecified pancreatitis type Insulin-requiring or dependent type II diabetes mellitus E11.9; Z79.4 Hypothyroidism (acquired) E03.9 CKD (chronic kidney disease) N18.9 Smoker F17.200 Abnormal finding on urinalysis R82.90 Positive blood culture R78.81 Hyponatremia E87.1 Constipation K59.00 DVT prophylaxis Z29.9 (1) Chronic pancreatitis Pancreatitis type: unspecified pancreatitis type Qualified Code(s): K86.1 - Other chronic pancreatitis (2) COPD (chronic obstructive pulmonary disease) COPD type: unspecified COPD Qualified Code(s): J44.9 - Chronic obstructive pulmonary disease, unspecified (3) LLL pneumonia Pneumonia type: due to unspecified organism Qualified Code(s): J18.9 - Pneumonia, unspecified organism
[2020-09-03] MEDS ORDERED: ACETYLCYSTEINE 20% INHAL SOLN 4ML ***DISPENSED BY RESP. INH SCH (16:00)
--- NOTE | 2020-09-03 16:12 | Anesthesiology Consultation ---
Date of Service September 03, 2020 Procedure can be done Saturday if necessary for the course of his treatment but agree with note that I would like to see further workup / treatment of his opacified lung first if possible. Assessment & Plan (1) Encounter for pre-operative examination: Chart Review Chart Review: Acceptable Risk for Surgery (if procedure felt to be necessary so on - otherwise would like to see further workup / treatment of lung opacification / effusion) History Height/Weight Height: 5 ft 10 in Weight: 104.1 kg Allergies Allergy/AdvReac Type Severity Reaction Status Date / Time lisinopril Allergy Unknown Unverified 08/25/20 09:28 ASPIRIN (IN DOSES LARGER AdvReac Intermediate N/V Uncoded 08/25/20 09:28 THAN 81MG) Medications Home Medications Medication Instructions Recorded Confirmed Last Taken Creon 1 cap PO TIDM #0 05/22/15 08/25/20 08/24/20 gabapentin 300 mg PO QAM #0 05/22/15 08/25/20 08/24/20 grape seed extract 100 mg PO QPM #0 05/22/15 08/25/20 08/24/20 levothyroxine 88 mcg PO QAM #0 05/22/15 08/25/20 08/24/20 multivitamin with minerals [Men's 1 tab PO DAILY #0 05/22/15 08/25/20 08/24/20 One Daily] atorvastatin [Lipitor] 20 mg PO QAM #0 tab 05/05/18 08/25/20 08/24/20 metoprolol tartrate 25 mg PO BID 12/29/19 08/25/20 08/24/20 amlodipine 10 mg PO QAM 06/22/20 08/25/20 08/24/20 hydralazine 10 mg PO BID 06/22/20 08/25/20 08/24/20 albuterol sulfate [Ventolin HFA] 2 puff INHALATION QID PRN 07/25/20 08/25/20 Unknown budesonide-formoterol [Symbicort] 2 inh INHALATION HS PRN 07/25/20 08/25/20 07/24/20 insulin asp prt-insulin aspart 16 unit SUBCUT AMPM 07/25/20 08/25/20 08/24/20 [Novolog Mix 70-30FlexPen U-100] oxycodone-acetaminophen [Percocet] 1 tab PO Q4H PRN 07/25/20 08/25/20 Unknown tamsulosin [Flomax] 0.4 mg PO DAILY 08/14/20 08/25/20 08/24/20 tiotropium bromide 2 puff INHALATION DAILY 08/14/20 08/25/20 08/25/20 acetaminophen 500 - 1,000 mg PO Q6H PRN 08/25/20 08/25/20 08/24/20 cinnamon bark [Cinnamon] 500 mg PO DAILY 08/25/20 08/25/20 08/24/20 cranberry 400 mg PO DAILY 08/25/20 08/25/20 08/24/20 Active Medications Generic Name Dose Route Start Last Admin Trade Name Freq PRN Reason Stop Dose Admin Albuterol 3 ml 09/02/20 13:00 09/03/20 03:33 Albut/Ipratrop 3mg/0.5mg Neb 3 Ml Vial NEB 09/24/20 12:59 3 ml Q4R PRN Administration Shortness Of Breath Or Wheezing Lipase/Protease/Amylase 2 cap 08/25/20 17:00 09/03/20 13:11 Pancreaze (Lipase 10,500u) Cap PO 09/24/20 16:59 2 cap TIDM LAW Administration Dextrose 25 - 50 ml 08/25/20 10:35 08/28/20 03:52 Dextrose 50% 50 Ml Syringe IV 09/24/20 10:34 25 ml UD PRN Administration Hypoglycemia Protocol Protocol Gabapentin 300 mg 08/26/20 09:00 09/03/20 08:57 Gabapentin 300 Mg Cap PO 09/25/20 08:59 300 mg QAM LAW Administration Heparin Sodium (Porcine) 5,000 units 08/25/20 21:00 09/03/20 08:54 Heparin Sod 5,000 Unit/0.5 Ml Vial SQ 09/24/20 20:59 Not Given Q12 LAW Caspofungin 50 mg/ Sodium 260 mls @ 250 mls/hr 09/02/20 09:00 09/03/20 14:15 Chloride IV 09/12/20 08:59 250 mls/hr DAILY LAW Administration Protocol Insulin Aspart 0 units 08/28/20 07:30 09/03/20 13:12 Insulin Aspart 100 Units/Ml 3 Ml Pen SC 09/27/20 07:29 7 units ACHS LAW Administration Protocol Insulin Glargine 0 units 08/28/20 21:00 09/02/20 20:51 Insulin Glargine Solostar 100 Units/Ml 3 Ml Pen SC 09/27/20 20:59 10 units HS LAW Administration Protocol Levothyroxine Sodium 100 mcg 08/27/20 06:30 09/03/20 05:52 Levothyroxine Sodium 100 Mcg Tablet PO 09/26/20 06:29 100 mcg DAILYBB LAW Administration Metoprolol Tartrate 25 mg 08/25/20 21:00 09/03/20 08:53 Metoprolol Tartrate 25 Mg Tab PO 09/24/20 20:59 Not Given BID LAW Miscellaneous 15 - 30 gm 08/25/20 10:35 08/27/20 20:38 Carbohydrates For Hypoglycemia PO 09/24/20 10:34 15 gm UD PRN Administration Hypoglycemia Protocol Miscellaneous 1 ea 08/26/20 08:59 09/03/20 08:54 Remove Nicoderm Patch N/A 09/25/20 08:58 Not Given DAILY@0859 [facility] Nicotine 14 mg 08/26/20 09:00 09/03/20 08:54 Nicotine 14 Mg/24 Hr Patch TD 09/25/20 08:59 Not Given QAM [facility] Ondansetron HCl 4 mg 08/25/20 12:48 08/26/20 21:20 Ondansetron Inj 2 Mg/Ml 2 Ml Vial IV 09/24/20 12:47 4 mg Q6H PRN Administration Nausea Polyethylene Glycol 17 gm 08/25/20 12:48 08/26/20 21:21 Polyethylene (Miralax) 17 Gm Pack PO 09/24/20 12:47 17 gm DAILY PRN Administration Constipation Sevelamer HCl 800 mg 08/31/20 12:00 09/03/20 13:11 Sevelamer Hcl 800 Mg Tablet PO 09/30/20 11:59 800 mg TIDM LAW Administration Tamsulosin HCl 0.4 mg 08/26/20 09:00 09/03/20 08:57 Tamsulosin Hcl 0.4 Mg Cap PO 09/25/20 08:59 0.4 mg DAILY LAW Administration Umeclidinium [place] 1 puffs 09/03/20 09:00 09/03/20 10:37 Umeclidinium [place] 62.5mcg/Blister 7 Puffs/Inhaler INH 10/03/20 08:59 1 puffs DAILY LAW Administration Protocol Vitamin B Complex/Folic Acid 1 cap 08/31/20 09:00 09/03/20 08:57 Nephrocaps PO 09/30/20 08:59 1 cap QAM LAW Administration Past Medical History Medical History Acute renal failure on dialysis Agent [place] poisoning Chronic pancreatitis Elevated troponin ESRD needing dialysis GERD (gastroesophageal reflux disease) History of pacemaker Hyperlipidemia LDL goal <70 Hypertension Hypothyroidism (acquired) Insulin-requiring or dependent type II diabetes mellitus Morbid obesity Pancreatic insufficiency Peripheral neuropathy Smoker Past Family History Family History Other Family history non-contributory Past Surgical History Surgical History History of permanent cardiac pacemaker placement Social History Smoking Status: Former smoker tobacco type: cigarettes Smoking cigarettes per day: 15 Hx Alcohol Use: No Hx Substance Use: No substance use type: does not use Physical Exam Vital Signs Last Vital Signs Temp 37.1 C 09/03/20 15:25 Pulse 66 09/03/20 15:25 Resp 18 09/03/20 15:25 BP 171/70 H 09/03/20 15:25 Pulse Ox 94 09/03/20 15:25 Testing Laboratory Results 09/03/20 09:30 09/03/20 09:30 PT 10.9 Seconds (9.0-12.0) 08/25/20 09:07 INR 1.0 (0.9-1.1) 08/25/20 09:07 APTT 24.8 Seconds (21.0-31.0) 08/25/20 09:07 Hemoglobin A1c 6.6 % (4.5-5.6) H 08/26/20 08:52 Urine Color [place] 08/25/20 22:07 Urine Appearance Turbid (Clear) A 08/25/20 22:07 Urine pH 5.5 (4.5-7.5) 08/25/20 22:07 Ur Specific [place] 1.021 (1.000-1.030) 08/25/20 22:07 Urine Protein 3+ (Negative) H 08/25/20 22:07 Urine Glucose (UA) Negative (Negative) 08/25/20 22:07 Urine Ketones Negative (Negative) 08/25/20 22:07 Urine Nitrite Negative (Negative) 08/25/20 22:07 Ur Leukocyte Esterase 3+ (Negative) H 08/25/20 22:07 Urine WBC (Auto) >30 /hpf (0-5) H 08/25/20 22:07 Urine RBC (Auto) >30 /hpf (0-4) H 08/25/20 22:07 U Hyaline Cast (Auto) 1-5 /lpf (0-5) 08/25/20 22:07 U Epithel Cells (Auto) 0-5 /lpf (0-5) 08/25/20 22:07 Urine Bacteria (Auto) Negative (Negative) 08/25/20 22:07 09/02/20 10:58 Aerobic Blood Culture - Preliminary Blood No growth in Aerobic bottle after 24 hours. Anaerobic Blood Culture - Preliminary No growth in Anaerobic bottle after 24 hours. 09/02/20 11:09 Aerobic Blood Culture - Preliminary Blood No growth in Aerobic bottle after 24 hours. Anaerobic Blood Culture - Preliminary No growth in Anaerobic bottle after 24 hours. 08/25/20 14:23 Aerobic Blood Culture - Final Blood No growth in Aerobic bottle after 5 days. Anaerobic Blood Culture - Final Mary glabrata complex 08/25/20 14:23 Aerobic Blood Culture - Final Blood No growth in Aerobic bottle after 5 days. Anaerobic Blood Culture - Final No growth in Anaerobic bottle after 5 days. 08/25/20 09:08 Aerobic Blood Culture - Final Blood No growth in Aerobic bottle after 5 days. Anaerobic Blood Culture - Final No growth in Anaerobic bottle after 5 days. 08/25/20 09:07 Aerobic Blood Culture - Final Blood No growth in Aerobic bottle after 5 days. Anaerobic Blood Culture - Final 08/25/20 22:07 Urine Culture - Final Urine,Clean Catch More than three types of organisms present, all moderate counts mixed probable skin nu. No further identifications or sensitivities to follow. 09/03/20 09/03/20 11:55 08:16 POC Glucose 152 H 238 H Echocardiogram Date: 09/02/20 EF: 50-55% LV Function: normal Valvular Disease: + no significant valvular disease pleural effusion noted - also seen on CXR
--- NOTE | 2020-09-03 16:24 | XRay Report ---
SINGLE VIEW CHEST CLINICAL HISTORY: Left lung opacification. FINDINGS: 2 AP, portable, upright chest radiographs are compared to study dated 09/02/2020 and correl ated with chest CT dated 07/25/2020. The examination is degraded by portable technique and patient rot ation. A 2-lead cardiac pacemaker is unchanged in position. The cardiac silhouette is obscured. Compl ete opacification of the left hemithorax is unchanged from yesterday. This likely represents a large pleural effusion with atelectasis of the left lung. The right lung appears clear noting basilar atele ctasis. No pneumothorax is seen. The skeletal structures are osteopenic. The bony thorax is grossly i ntact. IMPRESSION: 1. There is complete opacification of the left hemithorax. This is unchanged from yesterday and likel y represents a large left pleural effusion with atelectasis/consolidation of the left lung. 2. The right lung appears clear. ACT 112: Negative or not required by law. Electronically signed by: Jaquan Damon M.D. 09/03/2020 4:22 PM
--- NOTE | 2020-09-03 18:52 | Procedure Note ---
Procedure Note Date of Service September 03, 2020 Bedside ultrasound: Left side of the chest: Moderate to large amount of left-sided pleural effusion present. There are fibrin strands also appreciated making the likelihood of diffusion being chronic on the higher side. Atelectatic lung was also seen. Please look at the ultrasound images separately. Patient got heparin today. He is in no acute distress at the time of examination saturating well. Plan to do thoracentesis tomorrow. Risk and benefits of the procedure explained to the patient. He agrees to go ahead with it. Please note the above document was generated using voice recognition software. It may contain grammatical, syntax or spelling errors.Any formal questions or concerns about the content, text or information contained within the body of this dictation should be directly addressed to the provider for clarification. Coding CPT Codes Pulmonary/Thoracic - Pulmonary and Thoracic: 01124 US, Chest, real time with imaging documentation ([id number]) [facility] Procedure Codes (Charges) Pulmonary/Thoracic Procedure 1: Pulmonary and Thoracic: 21732 US, Chest, real time with imaging documentation
[2020-09-03] MEDS: ACETYLCYSTEINE 20% INHAL SOLN 4ML ***DISPENSED BY RESP. INH SCH (19:26)
[2020-09-03] MEDS: INSULIN GLARGINE SOLOSTAR 100 UNITS/ML 3 ML PEN SC SCH (20:48)
[2020-09-03] MEDS ORDERED: Nursing to Pharmacy Communication SCH (23:00)
[2020-09-03] MEDS ORDERED: MELATONIN 3 MG TAB PO ONE (23:49)
[2020-09-04] MEDS ORDERED: Nursing to Pharmacy Communication SCH (00:15)
[2020-09-04] MEDS: INSULIN ASPART 100 UNITS/ML 3 ML PEN SC SCH ×4 (05:52→22:23)
[2020-09-04] MEDS: LEVOTHYROXINE SODIUM 100 MCG TABLET PO SCH (05:54)
[2020-09-04 06:57] LABS: Hematocrit (blood only) 31.8 % (42-52); Hemoglobin 9.5 g/dL (14.0-18.0); Mean Corpuscular Hemoglobin 29.2 pg (25-34); Mean Corpuscular Hgb Conc 29.9 g/dL (32-36); Mean Corpuscular Volume 97.8 fL (80-100); Mean Platelet Volume 8.6 fL (7.4-10.4); Platelet Count 437 K/uL (130-400); RDW Coefficient of Variation 17.1 % (11.5-14.5); RDW Standard Deviation 58.1 fL (36.4-46.3); Red Blood Count 3.25 M/uL (4.7-6.1); White Blood Count 16.02 K/uL (4.8-10.8)
[2020-09-04 07:22] LABS: BUN Creatinine Ratio 7.4 (10-20); Calcium 8.2 mg/dl (8.5-10.1); Creatinine Clr Calc Pharmacy 20.8 ml/min; Est GFR (African American) 16.8; Est GFR (Non-African American) 14.5; Potassium 3.6 mmol/L (3.5-5.1)
[2020-09-04] MEDS: ACETYLCYSTEINE 20% INHAL SOLN 4ML ***DISPENSED BY RESP. INH SCH ×2 (07:42→19:16)
[2020-09-04] MEDS: ALBUT/IPRATROP 3MG/0.5MG NEB 3 ML VIAL NEB PRN ×2 (07:42→19:15)
--- NOTE | 2020-09-04 08:01 | Urology Consultation ---
Date of Consultation September 04, 2020 Assessment & Plan (1) Acute renal failure: Renal failure with obstruction Unfortunately, his ureteral stent and nephrostomy tube did not relieve his renal failure and he remains on dialysis He has had very limited urine output per urethra, however he does have persistent leakage from the nephrostomy site implying that some urine is being made in the kidney and leaking out of the nephrostomy site. Unfortunately this creates a challenging issue I believe suturing the site closed would create bigger problems as it would likely lead to a urinoma. He is due for thoracentesis today, presuming he progresses well and his respiratory status is stable and overall health status is stable I would consider upsizing his ureteral stent later this weekuncertain this will make a difference but I think it may be worth a try History of Present Illness Attending Physician: Darrian Amin, History of Present Illness 74-year-old gentleman with a multitude of chronic and acute medical issues known to our service from prior admissions Over the past several months he has been evaluated for renal failure, ureteral obstruction, bladder lesions He had a nephrostomy tube placed on the right, he has an internal right ureteral stent His nephrostomy tube was removed several weeks ago and he has had consistent leakage from the nephrostomy site since removal of the tube. He now has had an increase in leakage, he has almost no urine output per urethra He remains on dialysis He likely will be having a thoracentesis later today Allergies Allergy/AdvReac Type Severity Reaction Status Date / Time lisinopril Allergy Unknown Unverified 08/25/20 09:28 ASPIRIN (IN DOSES LARGER AdvReac Intermediate N/V Uncoded 08/25/20 09:28 THAN 81MG) Home Medications Home Medications Medication Instructions Recorded Confirmed Type Creon 1 cap PO TIDM #0 05/22/15 08/25/20 History gabapentin 300 mg PO QAM #0 05/22/15 08/25/20 History grape seed extract 100 mg PO QPM #0 05/22/15 08/25/20 History levothyroxine 88 mcg PO QAM #0 05/22/15 08/25/20 History multivitamin with minerals [Men's 1 tab PO DAILY #0 05/22/15 08/25/20 History One Daily] atorvastatin [Lipitor] 20 mg PO QAM #0 tab 05/05/18 08/25/20 History metoprolol tartrate 25 mg PO BID 12/29/19 08/25/20 History amlodipine 10 mg PO QAM 06/22/20 08/25/20 History hydralazine 10 mg PO BID 06/22/20 08/25/20 History albuterol sulfate [Ventolin HFA] 2 puff INHALATION QID PRN 07/25/20 08/25/20 History budesonide-formoterol [Symbicort] 2 inh INHALATION HS PRN 07/25/20 08/25/20 History insulin asp prt-insulin aspart 16 unit SUBCUT AMPM 07/25/20 08/25/20 History [Novolog Mix 70-30FlexPen U-100] oxycodone-acetaminophen [Percocet] 1 tab PO Q4H PRN 07/25/20 08/25/20 History tamsulosin [Flomax] 0.4 mg PO DAILY 08/14/20 08/25/20 History tiotropium bromide 2 puff INHALATION DAILY 08/14/20 08/25/20 History acetaminophen 500 - 1,000 mg PO Q6H PRN 08/25/20 08/25/20 History cinnamon bark [Cinnamon] 500 mg PO DAILY 08/25/20 08/25/20 History cranberry 400 mg PO DAILY 08/25/20 08/25/20 History Patient History Medical History Acute renal failure on dialysis Agent [place] poisoning Chronic pancreatitis Elevated troponin ESRD needing dialysis GERD (gastroesophageal reflux disease) History of pacemaker Hyperlipidemia LDL goal <70 Hypertension Hypothyroidism (acquired) Insulin-requiring or dependent type II diabetes mellitus Morbid obesity Pancreatic insufficiency Peripheral neuropathy Smoker Surgical History History of permanent cardiac pacemaker placement Family History Other Family history non-contributory Social History Smoking Status: Former smoker Tobacco Type: Cigarettes Cigarettes Per Day: 15; Second Hand Exposure: No; Hx Alcohol Use: No Hx Substance Use: No Preferred Language: Arabic Communication Ability: Effective Nut Tightener Required: No Beliefs That Will Affect Care: None marital status: Current Living Situation: Spouse Other Information That Helps Us Care for You: No Feels Safe at Home: Yes Safety Concerns: Feels Safe At This Time Assistive Devices: Walker Assistive Devices Comment: Only use the uppers Review of Systems Constitutional: + fatigue; no fever and no chills Eyes: no worsening vision Ear, Nose, Mouth, Throat: no facial pain and no pain with swallowing Respiratory: + dyspnea; no cough Cardiovascular: no chest pain and no palpitations Gastrointestinal: no abdominal pain, no nausea and no vomiting Genitourinary: + problem reported Musculoskeletal: no back pain Integumentary: no rash and no urticaria Neurologic: no gait abnormality and no unsteadiness Psychiatric: no behavioral changes and no depression Endocrine: no fatigue Physical Exam Constitutional: well developed and well nourished Neck: neck nontender Respiratory: normal respiratory effort (Nasal cannula O2 in place); no respiratory distress and does not use accessory muscles Cardiovascular: Rate/Rhythm: regular rate Vessels: radial pulses present Extremities: no edema Gastrointestinal (Abdomen): Inspection/Auscultation: abdomen normal to inspection (Nephrostomy site does not appear to be infected, no expressible fluid ) Percussion/Palpation: abdomen soft; abdomen nontender and no guarding Musculoskeletal: Head/Neck/Chest: normocephalic and head atraumatic Extremities: extremities normal to inspection Skin: no rashes and no lesions Trauma: no evidence of skin trauma Neurologic: awake; not obtunded Speech / Cognition: normal speech Motor/Sensory: no tremor Psychiatric: Orientation: alert and oriented x 3 Genitourinary: no CVA tenderness Lymphatic: no lymphadenopathy Results & Data ([facility]) Vital Signs (Past 12 Hours) Vital Signs Temp Pulse Pulse Resp BP Pulse Ox 09/04/20 07:56 36.8 C 59 L 18 186/69 H 98 09/04/20 07:48 56 L 18 96 09/03/20 23:59 36.8 C 60 16 106/65 95 PG Care Time/CCT Total # of Minutes Spent Total Time Spent with Patient: Total time spent is greater than 50% in coordination of care (as documented) at patient's floor/unit and/or counseling patient: Coding Level of Care Code 13411 Inpt Consult Level 4 Diagnoses Acute renal failure N17.9
[2020-09-04] MEDS: SEVELAMER HCL 800 MG TABLET PO SCH ×3 (08:15→18:14)
[2020-09-04] MEDS: PANCREAZE (LIPASE 10,500U) CAP PO SCH ×3 (08:15→18:14)
--- NOTE | 2020-09-04 08:47 | Pulmonary Consultation ---
Date of Consultation September 04, 2020 Assessment & Plan (1) Pleural effusion on left: Chest x-ray 09/03/2020: Personally reviewed: Opacification of the left hemithorax, no mediastinal shift, right costophrenic angle and cardiophrenic angle carotid clean., Dual-lead pacemaker in place. This chest x-ray was compared to the chest x-ray done on 08/25. Patient had left-sided pleural effusion at that time as well --Opacification of the left hemithorax From large complex pleural effusion given fibrillation appreciated in the effusion Status post thoracentesis 09/04/2020, removal of 2.2L dark yellow fluid. Exudative as per lights criteria Pleural fluid:- Protein 3.3, LDH 156, pH 7.64, glucose 108 Serum:- Protein 6, LDH 211 Follow-up culture Given the history of obstructive kidney failure. Possibility of Urothorax is al so there. Follow-up fluid urea If the culture is positive patient might need chest tube placement. --COPD Not on any inhalers at home. Continue with Incruse on a daily basis. Will benefit from PFTs as an outpatient. --Candidemia On caspofungin, recommend following up sensitivities because of increasing resistance Difficult to treat especially given that the patient has pacemaker as well Treatment as per primary team Plan: Given the improvement in aeration s/p thoracentesis. I doubt mucous plugging playing a role in the opacification on the left side of the thorax. Follow-up culture of the fluid, if positive will need chest tube placement Patient still has approximately 1.5 L of fluid on the left side. Will think about thoracentesis again in couple of days versus chest tube placement. Please note the above document was generated using voice recognition software. It may contain grammatical, syntax or spelling errors.Any formal questions or concerns about the content, text or information contained within the body of this dictation should be directly addressed to the provider for clarification. (2) COPD (chronic obstructive pulmonary disease): COPD type: unspecified COPD Qualified Code(s): J44.9 - Chronic obstructive pulmonary disease, unspecified (3) Acute respiratory failure with hypoxia: History of Present Illness Attending Physician: Darrian Amin DO History of Present Illness 74-year-old male was admitted to the hospital on 08/25/2020 because of shortness of breath. He was tested for coronavirus in the ED as well as 2 weeks ago and was negative. 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 Patient completed 7 days of Zosyn while on this hospital stay. Pulmonary consulted because of white out of the left side of the thorax. At the time of examination patient was resting comfortably on the left side actually. Saturating 95% on 3 L nasal cannula. He denied any chest pain, he denied any shortness of breath. He says he is coughing up a little bit here and there with clear phlegm. Denies any dizziness, no headache, no nausea, no vomiting. No recent travel history. No fever or chills. Social history: [id number] smoking history, quit couple of years ago, social alcohol, denies any illicit drug use, Pets: Has a dog at home. No birds or poultry nearby. No personal or family history of asthma. No family history of lung cancer. Allergies Allergy/AdvReac Type Severity Reaction Status Date / Time lisinopril Allergy Unknown Unverified 08/25/20 09:28 ASPIRIN (IN DOSES LARGER AdvReac Intermediate N/V Uncoded 08/25/20 09:28 THAN 81MG) Home Medications Home Medications Medication Instructions Recorded Confirmed Type Creon 1 cap PO TIDM #0 05/22/15 08/25/20 History gabapentin 300 mg PO QAM #0 05/22/15 08/25/20 History grape seed extract 100 mg PO QPM #0 05/22/15 08/25/20 History levothyroxine 88 mcg PO QAM #0 05/22/15 08/25/20 History multivitamin with minerals [Men's 1 tab PO DAILY #0 05/22/15 08/25/20 History One Daily] atorvastatin [Lipitor] 20 mg PO QAM #0 tab 05/05/18 08/25/20 History metoprolol tartrate 25 mg PO BID 12/29/19 08/25/20 History amlodipine 10 mg PO QAM 06/22/20 08/25/20 History hydralazine 10 mg PO BID 06/22/20 08/25/20 History albuterol sulfate [Ventolin HFA] 2 puff INHALATION QID PRN 07/25/20 08/25/20 History budesonide-formoterol [Symbicort] 2 inh INHALATION HS PRN 07/25/20 08/25/20 History insulin asp prt-insulin aspart 16 unit SUBCUT AMPM 07/25/20 08/25/20 History [Novolog Mix 70-30FlexPen U-100] oxycodone-acetaminophen [Percocet] 1 tab PO Q4H PRN 07/25/20 08/25/20 History tamsulosin [Flomax] 0.4 mg PO DAILY 08/14/20 08/25/20 History tiotropium bromide 2 puff INHALATION DAILY 08/14/20 08/25/20 History acetaminophen 500 - 1,000 mg PO Q6H PRN 08/25/20 08/25/20 History cinnamon bark [Cinnamon] 500 mg PO DAILY 08/25/20 08/25/20 History cranberry 400 mg PO DAILY 08/25/20 08/25/20 History Patient History Medical History Acute renal failure on dialysis Agent [place] poisoning Chronic pancreatitis Elevated troponin ESRD needing dialysis GERD (gastroesophageal reflux disease) History of pacemaker Hyperlipidemia LDL goal <70 Hypertension Hypothyroidism (acquired) Insulin-requiring or dependent type II diabetes mellitus Morbid obesity Pancreatic insufficiency Peripheral neuropathy Smoker Surgical History History of permanent cardiac pacemaker placement Family History Other Family history non-contributory Social History Smoking Status: Former smoker Tobacco Type: Cigarettes Cigarettes Per Day: 15; Second Hand Exposure: No; Hx Alcohol Use: No Hx Substance Use: No Preferred Language: Faroese Communication Ability: Effective Mercury Cracking Tester Required: No Beliefs That Will Affect Care: None marital status: Current Living Situation: Spouse Other Information That Helps Us Care for You: No Feels Safe at Home: Yes Safety Concerns: Feels Safe At This Time Assistive Devices: Walker Assistive Devices Comment: Only use the uppers Review of Systems Review of Systems: All systems reviewed & are unremarkable except as noted in HPI & below Physical Exam Physical Exam: Constitutional: No acute distress HEENT: EOMI, PERRLA Respiratory system: Decreased air entry on the left side, positive crackles bilateral lower lobes, no wheeze, no rhonchi CVS: S1-S2 positive Abdomen: Soft, nontender, nondistended, positive bowel sounds x4, obese Extremities: +2 pulses bilaterally radialis/ dorsalis pedis, no cyanosis, positive edema bilateral lower extremity Neuro: Awake alert oriented x3 Psych: Normal mood and affect G/U: No [place]tler Skin: no rashes, warm and dry Lymphatic: no cervical or axillary lymphadenopathy Results & Data Results & Data ([facility]) Vital Signs (Past 12 Hours) Vital Signs Temp Pulse Pulse Resp BP Pulse Ox 09/04/20 07:56 36.8 C 59 L 18 186/69 H 98 09/04/20 07:48 56 L 18 96 09/03/20 23:59 36.8 C 60 16 106/65 95 09/04/20 06:17 09/04/20 06:17 PG Care Time/CCT Total # of Minutes Spent Total Time Spent with Patient: Total time spent is greater than 50% in coordination of care (as documented) at patient's floor/unit and/or counseling patient: Coding Level of Care Code 05076 Initial Inpt Care Lvl 3 Diagnoses Pleural effusion on left J90 COPD (chronic obstructive pulmonary disease) J44.9 COPD type: unspecified COPD Acute respiratory failure with hypoxia J96.01
--- NOTE | 2020-09-04 08:48 | Procedure Note ---
Procedure Note Date of Service September 04, 2020 Procedure: Diagnostic therapeutic ultrasound-guided catheter thoracentesis [employer] Insurance Agent: Dr. Luis Roche Indication: Pleural effusion Consent: Signed by patient and verified with timeout prior to procedure Anesthesia: 1% lidocaine without epinephrine local. Procedure: Consent was verified and timeout performed. Appropriate imaging studies were reviewed prior to the procedure. Patient was placed in a seated position and limited thoracic ultrasound was performed of the left chest. See separate imaging. Appropriate site above the diaphragm for thoracentesis was selected. The skin was prepped and draped in normal sterile fashion. Lidocaine was used for local analgesia. Fluid was aspirated via the finder needle. A small skin vianey was made with the scalpel and the catheter over the needle apparatus was advanced over the rib into the pleural space. Using the syringe one-way valve system, a total of 2200 mL's of Dark yellow fluid was removed. Procedure was terminated due to chest discomfort. The catheter was removed and observed to be intact. A sterile dressing was applied. Post procedure chest x-ray was ordered. Fluid was sent for labs, culture and cytology. Postprocedure thoracentesis still showed at least 1-1.5 L of pleural fluid with fibrin strands. Lung sliding appreciated anteriorly. Complications: None Blood loss: <1cc Coding CPT Codes Pulmonary/Thoracic - Pulmonary and Thoracic: 01190 Thoracentesis w imaging ([id number]) [facility] [place] Procedure Codes (Charges) Pulmonary/Thoracic Procedure 1: Pulmonary and Thoracic: 05211 Thoracentesis w imaging
[2020-09-04] MEDS: CASPOFUNGIN 50 MG in SODIUM CHLORIDE 0.9% 250 ML IV SCH (09:52)
--- NOTE | 2020-09-04 10:58 | XRay Report ---
XR chest 1V portable HISTORY: 74 years-old Male after thorocentesis status post left thoracentesis COMPARISON: Chest radiograph 09/03/2020 TECHNIQUE: Portable AP view of the chest FINDINGS: Cardiac silhouette is enlarged. Left subclavian pacer. Mild pulmonary vascular congestion. There is g reater than 50% opacification of the left hemithorax, moderately improved aeration of the left upper lung from comparison. Decreased size of the large left pleural effusion status post thoracentesis. No pneumothorax. Bones appear grossly intact. IMPRESSION: Improved aeration of the left upper lung status post thoracentesis. No pneumothorax. ACT 112: Negative or not required by law. The above report was generated using voice recognition software. It may contain grammatical, syntax o r spelling errors. Electronically signed by: Michael Truong M.D. 09/04/2020 10:57 AM
[2020-09-04 11:37] LABS: Glucose Pleural Fluid 108 mg/dl
[2020-09-04 11:54] LABS: Albumin Level 1.8 gm/dl (3.4-5.0); Bilirubin,Total 0.2 mg/dl (0.2-1)
[2020-09-04 12:02] LABS: Amylase Pleural Fluid 14 U/L; LDH Pleural Fluid 156 U/L; Total Protein Pleural Fluid 3.3 g/dl
[2020-09-04] MEDS: UMECLIDINIUM BROMIDE 62.5MCG/BLISTER 7 PUFFS/INHALER INH SCH (12:23)
[2020-09-04] MEDS: METOPROLOL TARTRATE 25 MG TAB PO SCH ×2 (12:26→21:23)
[2020-09-04] MEDS: GABAPENTIN 300 MG CAP PO SCH (12:26)
[2020-09-04] MEDS: NICOTINE 14 MG/24 HR PATCH TD SCH (12:28)
--- NOTE | 2020-09-04 12:53 | Nephrology Progress Note ---
Date of Service September 04, 2020 Assessment & Plan (1) ESRD needing dialysis: HD TTS. Plan to continue HD at [facility] post discharge under the care of Dr. Dugan. Qb has been at goal. AVG functioning well. Clearance has been adequate. Medications are appropriately dosed for kidney function. Renal MVI daily. Renvela QAC for hyperphosphatemia. (2) Anemia: Venofer completed during recent admission. Epogen provided Q Saturday as inpat ient. Admission and Anticipated Discharge Date Admission Date: August 25, 2020 Subjective No acute events overnight. Thoracentesis performed without complications. Palomo feels reasonably well. He reports some improvement in breathing. Nephrostomy continues to leak some urine. Denies pain. No fevers or chills. Review of Systems Review of Systems: All systems reviewed & are unremarkable except as noted in HPI & below Physical Exam Constitutional: well developed and + frail appearing; no acute distress Eyes: + anicteric sclerae; no corneal abnormality ENMT: Mouth: no oral mucosal abnormality and oral mucous membranes not dry Neck: normal visual inspection and trachea midline Respiratory: normal respiratory effort Auscultation: lungs clear to auscultation bilaterally Cardiovascular: Rate/Rhythm: regular rate Heart Sounds: normal S1 and normal S2 Extremities: no edema Musculoskeletal: Extremities: no cyanosis and no clubbing Skin: normal turgor; no lesions Neurologic: Motor/Sensory: no tremor and no asterixis Psychiatric: Orientation: alert and oriented x 3 Results & Data ([facility]) Vital Signs (Past 12 Hours) Vital Signs Temp Pulse Pulse Resp BP Pulse Ox 09/04/20 07:56 36.8 C 59 L 18 186/69 H 98 09/04/20 07:48 56 L 18 96 Laboratory Results Laboratory Results - last 24 hr 09/03/20 09/03/20 09/04/20 16:57 20:22 05:49 WBC RBC Hgb Hct MCV MCH MCHC RDW Std Deviation RDW Coeff of Hilda Plt Count MPV Sodium Potassium Chloride Carbon Dioxide Anion Gap BUN Creatinine Est Cr Clr Drug Dosing Est GFR ( Amer) Est GFR (Non-Af Amer) BUN/Creatinine Ratio Glucose POC Glucose 114 H 145 H 100 H Calcium Total Bilirubin Lactate Dehydrogenase Total Protein Albumin Fluid Neutrophils % Fluid Lymphocytes % Fluid Eosinophils % Fluid Meso/Macro/Desha % Fluid Urea Nitrogen Src Fluid Urea Nitrogen Pleural Fluid Source Pleural Color Pleural Appearance Pleural pH Pleural WBC Pleural RBC Pleural Total Protein Pleural LDH Pleural Glucose Pleural Amylase Pleural Cholesterol 09/04/20 09/04/20 09/04/20 06:17 06:17 10:30 WBC 16.02 H RBC 3.25 L Hgb 9.5 L Hct 31.8 L MCV 97.8 MCH 29.2 MCHC 29.9 L RDW Std Deviation 58.1 H RDW Coeff of Hilda 17.1 H Plt Count 437 H MPV 8.6 Sodium 138 Potassium 3.6 Chloride 101 Carbon Dioxide 30 Anion Gap 7.0 BUN 29 H Creatinine 3.88 H D Est Cr Clr Drug Dosing 20.8 Est GFR ( Amer) 16.8 Est GFR (Non-Af Amer) 14.5 BUN/Creatinine Ratio 7.4 L Glucose 101 H POC Glucose Calcium 8.2 L Total Bilirubin Lactate Dehydrogenase Total Protein Albumin Fluid Neutrophils % Pending Fluid Lymphocytes % Pending Fluid Eosinophils % Pending Fluid Meso/Macro/Desha % Pending Fluid Urea Nitrogen Src Fluid Urea Nitrogen Pleural Fluid Source Pending Pleural Color Pending Pleural Appearance Pending Pleural pH Pleural WBC Pending Pleural RBC Pending Pleural Total Protein 3.3 Pleural LDH 156 Pleural Glucose 108 Pleural Amylase 14 Pleural Cholesterol 09/04/20 09/04/20 09/04/20 10:30 10:30 10:30 WBC RBC Hgb Hct MCV MCH MCHC RDW Std Deviation RDW Coeff of Hilda Plt Count MPV Sodium Potassium Chloride Carbon Dioxide Anion Gap BUN Creatinine Est Cr Clr Drug Dosing Est GFR ( Amer) Est GFR (Non-Af Amer) BUN/Creatinine Ratio Glucose POC Glucose Calcium Total Bilirubin Lactate Dehydrogenase Total Protein Albumin Fluid Neutrophils % Fluid Lymphocytes % Fluid Eosinophils % Fluid Meso/Macro/Desha % Fluid Urea Nitrogen Src Pending Fluid Urea Nitrogen Pending Pleural Fluid Source Pleural Color Pleural Appearance Pleural pH 7.64 H Pleural WBC Pleural RBC Pleural Total Protein Pleural LDH Pleural Glucose Pleural Amylase Pleural Cholesterol Pending 09/04/20 09/04/20 09/04/20 11:21 11:21 12:12 WBC RBC Hgb Hct MCV MCH MCHC RDW Std Deviation RDW Coeff of Hilda Plt Count MPV Sodium Potassium Chloride Carbon Dioxide Anion Gap BUN Creatinine Est Cr Clr Drug Dosing Est GFR ( Amer) Est GFR (Non-Af Amer) BUN/Creatinine Ratio Glucose POC Glucose 231 H Calcium Total Bilirubin 0.2 Lactate Dehydrogenase 211 Total Protein 6.0 L Albumin 1.8 L Fluid Neutrophils % Fluid Lymphocytes % Fluid Eosinophils % Fluid Meso/Macro/Desha % Fluid Urea Nitrogen Src Fluid Urea Nitrogen Pleural Fluid Source Pleural Color Pleural Appearance Pleural pH Pleural WBC Pleural RBC Pleural Total Protein Pleural LDH Pleural Glucose Pleural Amylase Pleural Cholesterol PG Care Time/CCT Total # of Minutes Spent Total Time Spent with Patient: Total time spent is greater than 50% in coordination of care (as documented) at patient's floor/unit and/or counseling patient: Coding Level of Care Code 21578 Subseq Hosp Care Lvl 3 Diagnoses ESRD needing dialysis N18.6; Z99.2 Anemia D64.9
[2020-09-04 13:17] LABS: Appearance Pleural Fluid CLOUDY; Basophils, Fluid 0 %; Color Pleural Fluid AMBER; Eosinophils, Fluid 1 %; Lymphocytes, Fluid 13 %; Mono,Macrophage,Mesothelial 57 %; Neutrophils, Fluid 29 %; RBC Pleural Fluid (A) 14000 /uL; Source Pleural Fluid LEFT LUNG; WBC Pleural Fluid (A) 174 /uL
[2020-09-04] MEDS: TAMSULOSIN HCL 0.4 MG CAP PO SCH (13:54)
[2020-09-04] MEDS: NEPHROCAPS PO SCH (13:54)
--- NOTE | 2020-09-04 14:18 | Hospitalist Progress Note ---
Date of Service September 04, 2020 Assessment & Plan (1) Candidemia: 1 of four blood cultures growing domenico glabrata complex. ID consulted - recommended echo which was unrevealing for vegetation, recommends ALONDRA - order placed for Saturday, anesthesia consulted Repeat blood cultures until negative - will repeat tomorrow am Patient will need two weeks of caspofungin from last positive blood culture. Pulm recommending sensitivities due to increased resistances. Discussed with lab. Will need provider tomorrow to call again to set up reference lab as this will be a send out that will require lab technologist tomorrow to reach out to the reference laboratory first. (2) Acute respiratory failure with hypoxia: Complete opacification of the left lung on CXR 09/02 - secondary to large complex pleural effusion Pulm consulted - thoracentesis 09/04 drained 2.2 liters, Dr. 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 Completed 7 days of Zosyn Repeat CXR showing complete opacification of left lung. Will discuss with pulm (4) Elevated troponin: No angina, did have 2 echos last admission( one that was ALONDRA) with preserved EF, continuing metoprolol. Resume hydralazine and amlodipine as pressures have been increasing Trop 0.074 on admission and essentially unchanged x2 after admission Trop 12/29/19 at 0.094, likely chronically elevated in the setting of CKD IV (5) COPD (chronic obstructive pulmonary disease): Home symbicort, Spiriva Discontinued prednisone 40 mg which was given for 5 days (6) Chronic pancreatitis: has no complaints of abd pain, will continue creon (7) Insulin-requiring or dependent type II diabetes mellitus: Pt required iv insulin gtt initially but is now on subq insulin. Managed by pharmacy A1c 6.6 (8) Hypothyroidism (acquired): synthroid 88 mcg was recently increased [facility]mcg by [facility], however states this was not started yet Dose adjusted 08/27 (9) CKD (chronic kidney disease): Pt has CKD 4, Consulted nephrology - patient had dialysis treatment 08/29 Renal US showing chronic R hydronephrolsis - also seen in June Per urology consult 08/04 - patient needs to follow up outpatient for further work up and bladder biopsy (10) Smoker: nicotine patch (11) Abnormal finding on urinalysis: 3+ leuk est, neg nitrites, yeast noted Urine cx mixed skin nu - dc'd dapto (12) Positive blood culture: As above (13) History of nephrostomy: Removed 08/04 but with increasing urine drainage. Urology consulted - Does not recommend suturing closed. May upsize his ureteral stent later this week (14) Hyponatremia: Resolved (15) Constipation: Resolved (16) DVT prophylaxis: heparin sc bid - held for thoracentesis, will resume for tomorrow. Pt states that the [facility] has been working to get him [facility] for a [facility] for use when away from home PT/OT - recommending rehab but patient is refusing. He and his feel he can come home. is attempting to find some caregivers to come in for a few hours each day Mr. Morales has multiple issues at hand with severe deconditioning and poor nutritional status. His prognosis is poor at this point. Will consult palliative for a goals of care discussion on Saturday. Admission and Anticipated Discharge Date Admission Date: August 25, 2020 Subjective Mr. Morales is post thoracentesis this morning. He is tired but otherwise does not have complaints ROS Constitutional: no chills, aches, sweats or fever Respiratory: no sob,cough, sputum, or wheezing Cardiac: no chest pain, palpitations, edema, orthopnea or lightheadedness GI: no abdominal pain, nausea, vomiting, diarrhea or constipation : no dysuria or hesitancy Extremities: no joint pain or weakness Skin: no rash All other systems reviewed and negative Physical Exam Physical Exam: General: fatigued appearing, no distress Eyes: normal inspection, PERLL Respiratory: chest non tender, clear to auscultation, normal breath sounds, no respiratory distress, no accessory muscle use Cardiac: regular rate and rhythm, no rub or gallop, no murmur, no edema, no jvd GI/: active bowel sounds, no abd pain or tenderness, soft, non distended Extremities: normal range of motion, normal strength, non tender Neuro/Psych: alert and oriented x 3, normal mood and affect Skin: normal color, dry Results & Data Results & Data ([facility]) Vital Signs (Past 12 Hours) Vital Signs Temp Pulse Pulse Resp BP Pulse Ox 09/04/20 07:56 36.8 C 59 L 18 186/69 H 98 09/04/20 07:48 56 L 18 96 PG Care Time/CCT Total # of Minutes Spent Total Time Spent with Patient: Total time spent is greater than 50% in coordination of care (as documented) at patient's floor/unit and/or counseling patient: Coding Level of Care Code 60422 Subseq Hosp Care Lvl 3 Diagnoses Candidemia B37.7 Acute respiratory failure with hypoxia J96.01 LLL pneumonia J18.9 Pneumonia type: due to unspecified organism Elevated troponin R77.8 COPD (chronic obstructive pulmonary disease) J44.9 COPD type: unspecified COPD Chronic pancreatitis K86.1 Pancreatitis type: unspecified pancreatitis type Insulin-requiring or dependent type II diabetes mellitus E11.9; Z79.4 Hypothyroidism (acquired) E03.9 CKD (chronic kidney disease) N18.9 Smoker F17.200 Abnormal finding on urinalysis R82.90 Positive blood culture R78.81 History of nephrostomy Hyponatremia E87.1 Constipation K59.00 DVT prophylaxis Z29.9 (1) LLL pneumonia Pneumonia type: due to unspecified organism Qualified Code(s): J18.9 - Pneumonia, unspecified organism (2) COPD (chronic obstructive pulmonary disease) COPD type: unspecified COPD Qualified Code(s): J44.9 - Chronic obstructive pulmonary disease, unspecified (3) Chronic pancreatitis Pancreatitis type: unspecified pancreatitis type Qualified Code(s): K86.1 - Other chronic pancreatitis
[2020-09-04] MEDS ORDERED: FLUTICASONE/VILANTEROL 100/25MCG 14 PUFFS/INHALER INH PRN (14:31)
--- NOTE | 2020-09-04 15:07 | Pharmacy Report ---
Pharmacy Glycemic Short Note 2 - Date of Service September 04, 2020 - Glycemic Short BSG Results (Last 24 hours): 09/03/20 09/03/20 09/04/20 16:57 20:22 05:49 Glucose POC Glucose 114 H 145 H 100 H 09/04/20 09/04/20 06:17 12:12 Glucose 101 H POC Glucose 231 H ASSESSMENT: 09/04: * Patient received 39 units of insulin yesterday: 21 units of basal + 18 units of bolus * Prednisone 40 mg daily dose was discontinued, therefore no NPH insulin given today. * Fasting BSG = 100 mg/dl. Patient received 5 units of Lantus last night based on BSG scale. Will continue with this. * Pre-lunch BSG was elevated at 231 mg/dl. Patient was NPO this AM for thoracentesis. Diet re-ordered with lunch. Novolog parameters adequately controlled BSGs yesterday. Will continue with same. 09/02: * SC received 43 units of insulin yesterday * 30 units of basal (10 units of Lantus; 20 units of NPH w/ prednisone) * BSGs yesterday of 81, 60, 222, and 195 mg/dL * Continues on prednisone 40 mg PO daily -> NPH 16 units given today, which is a 20% reduction from yesterday's dose * 1 of 4 blood cultures growing Mary glabrata - now receiving caspofungin IV * Hemodialysis scheduled for tomorrow 09/03 PLAN FOR INPATIENT GLYCEMIC CONTROL: * Basal insulin - continue Lantus scale. NPH discontinued since Prednisone discontinued. * Lantus 0-15 units HS (see eMAR for more details) * Bolus insulin - continued * NovoLog per scale ACHS or Q6hrs while NPO. * Goal Range: Low 110 mg/dL - High 140 mg/dL * Correction Factor: 25 mg/dL/unit * Nutritional / Prandial insulin per carb ratio of 1 unit per 8 grams CHO consumed DISCHARGE RECOMMENDATIONS: * HbA1c = 6.6% from this admission. This demonstrates excellent outpatient control of T2DM and is at goal. * Patient admits to poor appetite, decreased PO intake and weight loss of almost 20 lbs prior to admission. There is concern for hypoglycemia given current outpatient insulin dose. * Recommend: * SMBG at least 2 x per day * Patient should closely follow up with outpatient provider regarding BSGs once discharged to develop a plan in the event that he continues to have poor appetite and decreased PO intake. * Could consider a slight reduction in home insulin dose to ensure patient does not experience hypoglycemia. * Please note that the plan above was derived based on current level of insulin resistance and hospital stress. These recommendations are appropriate for inpatient admission only. Plan of care upon discharge will need to be reassessed to avoid potential outpatient hypo/hyperglycemia. Thank you.
[2020-09-04] MEDS: CARBOHYDRATES FOR HYPOGLYCEMIA PO PRN ×2 (21:12→21:36)
[2020-09-04] MEDS: hydrALAZINE 10 MG TAB PO SCH (21:23)
[2020-09-04] MEDS: DEXTROSE 50% 50 ML SYRINGE IV PRN (22:03)
[2020-09-04] MEDS: INSULIN GLARGINE SOLOSTAR 100 UNITS/ML 3 ML PEN SC SCH (22:23)
[2020-09-05] MEDS ORDERED: Nursing to Pharmacy Communication SCH ×2 (01:15→19:00)
[2020-09-05] MEDS: INSULIN ASPART 100 UNITS/ML 3 ML PEN SC SCH ×4 (06:00→20:53)
[2020-09-05] MEDS: LEVOTHYROXINE SODIUM 100 MCG TABLET PO SCH (06:01)
[2020-09-05 07:05] LABS: Hematocrit (blood only) 31.5 % (42-52); Hemoglobin 9.5 g/dL (14.0-18.0); Mean Corpuscular Hemoglobin 29.2 pg (25-34); Mean Corpuscular Hgb Conc 30.2 g/dL (32-36); Mean Corpuscular Volume 96.9 fL (80-100); Mean Platelet Volume 8.6 fL (7.4-10.4); Platelet Count 376 K/uL (130-400); RDW Coefficient of Variation 17.2 % (11.5-14.5); RDW Standard Deviation 58.4 fL (36.4-46.3); Red Blood Count 3.25 M/uL (4.7-6.1); White Blood Count 15.66 K/uL (4.8-10.8)
[2020-09-05] MEDS: ALBUT/IPRATROP 3MG/0.5MG NEB 3 ML VIAL NEB PRN ×2 (07:28→19:27)
[2020-09-05] MEDS: ACETYLCYSTEINE 20% INHAL SOLN 4ML ***DISPENSED BY RESP. INH SCH ×2 (07:29→19:27)
[2020-09-05 08:00] LABS: Albumin Globulin Ratio 0.4 (0.9-2); Albumin Level 1.7 gm/dl (3.4-5.0); BUN Creatinine Ratio 8.5 (10-20); Bilirubin,Total 0.3 mg/dl (0.2-1); Calcium 7.9 mg/dl (8.5-10.1); Creatinine Clr Calc Pharmacy 16.7 ml/min; Est GFR (Non-African American) 11.2; Globulin 3.9 gm/dl (2.5-4.0); Potassium 4.6 mmol/L (3.5-5.1); Total Protein 5.6 gm/dl (6.4-8.2)
--- NOTE | 2020-09-05 09:09 | XRay Report ---
SINGLE VIEW CHEST CLINICAL HISTORY: Status post thoracentesis. FINDINGS: An AP, portable, upright chest radiograph is compared to study dated 09/04/2020 and correlat ed with chest CT dated 07/25/2020. The examination is degraded by portable technique and patient rotat ion. A 2-lead cardiac pacemaker is unchanged in position. The cardiac heart is enlarged. There is pul monary vascular congestion. There is a moderate to large left pleural effusion with consolidation of the left lower lung. The left upper lobe remains aerated. The right lung appears clear. No pneumothor ax is seen. The skeletal structures are osteopenic. The bony thorax is grossly intact. IMPRESSION: 1. Cardiomegaly and cardiac pacemaker with mild pulmonary vascular congestion. 2. Moderate to large left pleural effusion with consolidation of the left lower lung. The left upper lobe remains aerated and this is similar in appearance to yesterday. 3. The right lung appears clear. ACT 112: Negative or not required by law. Electronically signed by: Jaquan Damon M.D. 09/05/2020 9:08 AM
--- NOTE | 2020-09-05 09:19 | Pharmacy Report ---
Pharmacy Glycemic Short Note 2 - Date of Service September 05, 2020 - Glycemic Short BSG Results (Last 24 hours): ASSESSMENT: 09/05: * Palomo received 14 units of insulin yesterday (all bolus) which is ~ 65% reduction in total daily dose from the previous day * Of note, Prednisone was discontinued yesterday and patient did not receive any NPH * BSGs were 515-498-60-49 mg/dL * Patient did experience hypoglycemia last evening. His BSG at bedtime was initially 49 mg/dL, and he was disoriented/confused, clammy, and diaphoretic. He was treated with 30 grams of carbohydrates and his BSGs trended down initially: 49-47-45 mg/dL. He was then given another 30 grams of carbohydrates and 25 mLs of D50. His BSGs began trending up: 55-55-99 mg/dL. Of note, he was NPO in the morning for a thoracentesis. * His fasting BSG this AM was 160 mg/dL - slightly above goal but will accept given hypoglycemia last evening. Also, patient is NPO this AM for a ALONDRA. I have already loosened his carbohydrate ratio as the amount of bolus insulin he received with lunch and dinner likely contributed to his hypoglycemia. * Lunchtime BSG was 211 mg/dL. * No change will be made to Novolog parameters at this time 09/04: * Patient received 39 units of insulin yesterday: 21 units of basal + 18 units of bolus * Prednisone 40 mg daily dose was discontinued, therefore no NPH insulin given today. * Fasting BSG = 100 mg/dl. Patient received 5 units of Lantus last night based on BSG scale. Will continue with this. * Pre-lunch BSG was elevated at 231 mg/dl. Patient was NPO this AM for thoracen tesis. Diet re-ordered with lunch. Novolog parameters adequately controlled BSGs yesterday. Will continue with same. PLAN FOR INPATIENT GLYCEMIC CONTROL: * Basal insulin - decreased * Lantus 0-10 units SC HS per scale (see eMAR for more details) * Bolus insulin - loosened CR * NovoLog per scale ACHS or Q6hrs while NPO. * Goal Range: Low 110 mg/dL - High 140 mg/dL * Correction Factor: 25 mg/dL/unit * Nutritional / Prandial insulin per carb ratio of 1 unit per 10 grams CHO consumed DISCHARGE RECOMMENDATIONS: * HbA1c = 6.6% from this admission. This demonstrates excellent outpatient c ontrol of T2DM and is at goal. * Patient admits to poor appetite, decreased PO intake and weight loss of almost 20 lbs prior to admission. There is concern for hypoglycemia given current outpatient insulin dose. * Recommend: * SMBG at least 2 x per day * Patient should closely follow up with outpatient provider regarding BSGs once discharged to develop a plan in the event that he continues to have poor appetite and decreased PO intake. * Could consider a slight reduction in home insulin dose to ensure patient does not experience hypoglycemia. * Please note that the plan above was derived based on current level of insulin resistance and hospital stress. These recommendations are appropriate for inpatient admission only. Plan of care upon discharge will need to be reassessed to avoid potential outpatient hypo/hyperglycemia. Thank you.
--- NOTE | 2020-09-05 09:40 | Hospitalist Progress Note ---
Date of Service September 05, 2020 Assessment & Plan (1) Candidemia: * 1 of four blood cultures growing domenico glabrata complex. * ID consulted - recommended echo which was unrevealing for vegetation, recommends ALONDRA * Patient will need two weeks of caspofungin from last positive blood culture. Last negative culture 09/02 NGTD after 48 hours * ALONDRA without vegetations noted * Repeat blood cultures until negative - repeated and patient with temp 37.7C this afternoon * Pulm recommending sensitivities due to increased resistances. Discussed with lab -- sent to [facility] * Pleural blood urea pending given possibility of urothorax. Also added pleural cr but is a sendout as well (2) Acute respiratory failure with hypoxia: * Complete opacification of the left lung on CXR 09/02 - secondary to large complex pleural effusion * Pulm consulted - thoracentesis 09/04 drained 2.2 liters Pleural fluid with EXUDATIVE process. protein 3.3, LDH 156, pH 7.64H, glucose 108. Serum protein 6, LDH 211 * Pleural urea pending given possible urothorax. pleural cr send-out. * Body fluid slide with atypical cells present, cannot exclude malignancy. Cytology pending * Pleural fluid with few WBCs, no organisms seen. No growth to date -- follow * CXR today with mod-large effusion with consolidation of L lower lung. Upper lobe remains aerated and similar to yesterday. R lung clear. Cardiomegaly with pacemaker and mild pulm vascular congestion * 92% on 4L currently * Pulm to perform thoracentesis tomorrow for remaining 1.5L. * --> Hold Heparin but can eat. 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 * Completed 7 days of Zosyn * Repeat CXR showing complete opacification of left lung * Thoacesis planned for AM (4) Elevated troponin: * No angina, did have 2 echos last admission( one that was ALONDRA) with preserved EF, continuing metoprolol. Resume hydralazine and amlodipine as pressures have been increasing * Trop 0.074 on admission and essentially unchanged x2 after admission * Trop 12/29/19 at 0.094, likely chronically elevated in the setting of CKD IV (5) COPD (chronic obstructive pulmonary disease): * Home symbicort, Spiriva * Discontinued prednisone 40 mg which was given for 5 days (6) Chronic pancreatitis: * has no complaints of abd pain, will continue creon (7) Insulin-requiring or dependent type II diabetes mellitus: * Pt required iv insulin gtt initially but is now on subq insulin. Managed by pharmacy * A1c 6.6 (8) Hypothyroidism (acquired): * synthroid 88 mcg was recently increased to 100mcg by [place], however states this was not started yet * Dose adjusted 08/27 (9) CKD (chronic kidney disease): * Pt has CKD 4 on HD * Consulted nephrology - patient had last dialysis treatment 08/29 * Renal US showing chronic R hydronephrolsis - also seen in June * Per urology consult 08/04 - patient needs to follow up outpatient for further work up and bladder biopsy * To have HD tomorrow (10) Smoker: * nicotine patch (11) Abnormal finding on urinalysis: * 3+ leuk est, neg nitrites, yeast noted * Urine cx mixed skin nu - dc'd dapto (12) Positive blood culture: * As above (13) History of nephrostomy: * Removed 08/04 but with increasing urine drainage. Urology consulted - Does not recommend suturing closed. May upsize his ureteral stent later this week -- planned for SATURDAY with possible biopsy. Will need to be NPO after midnight on Friday 09/07 (14) Hyponatremia: * Resolved. Na 136 (15) Constipation: * Resolved (16) DVT prophylaxis: * Heparin sc bid - held for thoracentesis, resumed today and will hold again for thoracentesis planned for tomorrow Pt states that [facility] working to get him approved for a wheelchair for use when away from home PT/OT - recommending rehab but patient is refusing. He and his feel he can come home. is attempting to find some caregivers to come in for a few hours each day Mr. Morales has multiple issues at hand with severe deconditioning and poor nutritional status. His prognosis is poor at this point. Evaluated by palliative care today -- plans to treat current state and possibly move forward with skilled with transition to hospice at discharge if able Admission and Anticipated Discharge Date Admission Date: August 25, 2020 Subjective Patient evaluated this afternoon following his ALONDRA. Initial report no vegetations but awaiting official read. Patient states he feels a little groggy after procedure but otherwise doing well. at bedside trimming his rueda. Patient to have HD tomorrow. Discussed reaching out to pulm team for thoracentesis in AM and patient should not have to be NPO. Patient disappointed he couldn't get his oatmeal this morning as requested as he has been NPO multiple mornings and not been able to eat. When asked if he was short of breath, he stated "I'm short of food is what I am". Urology will plan for stent on . No fever, chill, chest pain or shortness of breath, cough or sputum production, nausea, vomiting, abdominal pain . Some leakage from stent site but improved as day goes on per . Review of Systems Review of Systems: All systems reviewed & are unremarkable except as noted in HPI & below Physical Exam Constitutional: comfortable; no acute distress Eyes: + anicteric sclerae and PERRL Neck: normal visual inspection Respiratory: able to speak in complete sentences; no respiratory distress and no labored breathing Auscultation: + diminished lung sounds (left sided) and + crackles (bilateral); no rhonchi and no wheezes 4 L via NC Cardiovascular: Extremities: no pedal edema Gastrointestinal (Abdomen): Inspection/Auscultation: abdomen normal to inspection; abdomen not distended Percussion/Palpation: abdomen soft; abdomen nontender and no guarding Skin: warm, dry Neurologic: moves all extremities and awake Psychiatric: Orientation: alert and oriented x 3 Genitourinary: no CVA tenderness Right nephrostomy site dressing intact, minimal drainage noted Results & Data Results & Data ([facility]) Vital Signs (Past 12 Hours) Vital Signs Temp Pulse Pulse Resp BP Pulse Ox 09/05/20 07:30 60 18 93 09/05/20 07:13 37.1 C 61 16 168/69 H 95 09/04/20 23:28 36.3 C L 60 16 150/76 H 96 Laboratory Results 09/05/20 09/05/20 09/05/20 Range/Units 06:27 06:27 05:14 WBC 15.66 H (4.8-10.8) K/uL RBC 3.25 L (4.7-6.1) M/uL Hgb 9.5 L (14.0-18.0) g/dL Hct 31.5 L (42-52) % MCV 96.9 (80-100) fL MCH 29.2 (25-34) pg MCHC 30.2 L (32-36) g/dL RDW Std Deviation 58.4 H (36.4-46.3) fL RDW Coeff of Hilda 17.2 H (11.5-14.5) % Plt Count 376 (130-400) K/uL MPV 8.6 (7.4-10.4) fL Sodium 136 (136-145) mmol/L Potassium 4.6 D (3.5-5.1) mmol/L Chloride 100 (98-107) mmol/L Carbon Dioxide 30 (21-32) mmol/L Anion Gap 6.0 (3-11) BUN 41 H (7-18) mg/dl Creatinine 4.82 H* D (0.6-1.4) mg/dl Est Cr Clr Drug Dosing 16.7 ml/min Est GFR ( Amer) 13.0 Est GFR (Non-Af Amer) 11.2 BUN/Creatinine Ratio 8.5 L (10-20) Glucose 142 H (70-99) mg/dl POC Glucose 160 H (70-99) mg/dl Calcium 7.9 L (8.5-10.1) mg/dl Total Bilirubin 0.3 (0.2-1) mg/dl AST 33 (15-37) U/L ALT 30 (12-78) U/L Alkaline Phosphatase 80 (45-117) U/L Lactate Dehydrogenase (87-241) U/L Total Protein 5.6 L (6.4-8.2) gm/dl Albumin 1.7 L (3.4-5.0) gm/dl Globulin 3.9 (2.5-4.0) gm/dl Albumin/Globulin Ratio 0.4 L (0.9-2) Fluid Neutrophils % % Fluid Lymphocytes % % Fluid Eosinophils % % Fluid Basophils % % Fluid Meso/Macro/[place] % % Fluid Slide Review Fluid Urea Nitrogen Src Fluid Urea Nitrogen Pleural Fluid Source Pleural Color Pleural Appearance Pleural pH (7.3-7.4) Pleural WBC /uL Pleural RBC /uL Pleural Total Protein g/dl Pleural LDH U/L Pleural Glucose mg/dl Pleural Amylase U/L Pleural Cholesterol 09/05/20 09/04/20 09/04/20 Range/Units 00:00 22:17 21:59 WBC (4.8-10.8) K/uL RBC (4.7-6.1) M/uL Hgb (14.0-18.0) g/dL Hct (42-52) % MCV (80-100) fL MCH (25-34) pg MCHC (32-36) g/dL RDW Std Deviation (36.4-46.3) fL RDW Coeff of Hilda (11.5-14.5) % Plt Count (130-400) K/uL MPV (7.4-10.4) fL Sodium (136-145) mmol/L Potassium (3.5-5.1) mmol/L Chloride (98-107) mmol/L Carbon Dioxide (21-32) mmol/L Anion Gap (3-11) BUN (7-18) mg/dl Creatinine (0.6-1.4) mg/dl Est Cr Clr Drug Dosing ml/min Est GFR ( Amer) Est GFR (Non-Af Amer) BUN/Creatinine Ratio (10-20) Glucose (70-99) mg/dl POC Glucose 151 H 99 55 L* (70-99) mg/dl Calcium (8.5-10.1) mg/dl Total Bilirubin (0.2-1) mg/dl AST (15-37) U/L ALT (12-78) U/L Alkaline Phosphatase (45-117) U/L Lactate Dehydrogenase (87-241) U/L Total Protein (6.4-8.2) gm/dl Albumin (3.4-5.0) gm/dl Globulin (2.5-4.0) gm/dl Albumin/Globulin Ratio (0.9-2) Fluid Neutrophils % % Fluid Lymphocytes % % Fluid Eosinophils % % Fluid Basophils % % Fluid Meso/Macro/[place] % % Fluid Slide Review Fluid Urea Nitrogen Src Fluid Urea Nitrogen Pleural Fluid Source Pleural Color Pleural Appearance Pleural pH (7.3-7.4) Pleural WBC /uL Pleural RBC /uL Pleural Total Protein g/dl Pleural LDH U/L Pleural Glucose mg/dl Pleural Amylase U/L Pleural Cholesterol 09/04/20 09/04/20 09/04/20 Range/Units 21:59 21:45 21:30 WBC (4.8-10.8) K/uL RBC (4.7-6.1) M/uL Hgb (14.0-18.0) g/dL Hct (42-52) % MCV (80-100) fL MCH (25-34) pg MCHC (32-36) g/dL RDW Std Deviation (36.4-46.3) fL RDW Coeff of Hilda (11.5-14.5) % Plt Count (130-400) K/uL MPV (7.4-10.4) fL Sodium (136-145) mmol/L Potassium (3.5-5.1) mmol/L Chloride (98-107) mmol/L Carbon Dioxide (21-32) mmol/L Anion Gap (3-11) BUN (7-18) mg/dl Creatinine (0.6-1.4) mg/dl Est Cr Clr Drug Dosing ml/min Est GFR ( Amer) Est GFR (Non-Af Amer) BUN/Creatinine Ratio (10-20) Glucose (70-99) mg/dl POC Glucose 55 L* 45 L* 47 L* (70-99) mg/dl Calcium (8.5-10.1) mg/dl Total Bilirubin (0.2-1) mg/dl AST (15-37) U/L ALT (12-78) U/L Alkaline Phosphatase (45-117) U/L Lactate Dehydrogenase (87-241) U/L Total Protein (6.4-8.2) gm/dl Albumin (3.4-5.0) gm/dl Globulin (2.5-4.0) gm/dl Albumin/Globulin Ratio (0.9-2) Fluid Neutrophils % % Fluid Lymphocytes % % Fluid Eosinophils % % Fluid Basophils % % Fluid Meso/Macro/[place] % % Fluid Slide Review Fluid Urea Nitrogen Src Fluid Urea Nitrogen Pleural Fluid Source Pleural Color Pleural Appearance Pleural pH (7.3-7.4) Pleural WBC /uL Pleural RBC /uL Pleural Total Protein g/dl Pleural LDH U/L Pleural Glucose mg/dl Pleural Amylase U/L Pleural Cholesterol 09/04/20 09/04/20 09/04/20 Range/Units 21:11 18:12 12:12 WBC (4.8-10.8) K/uL RBC (4.7-6.1) M/uL Hgb (14.0-18.0) g/dL Hct (42-52) % MCV (80-100) fL MCH (25-34) pg MCHC (32-36) g/dL RDW Std Deviation (36.4-46.3) fL RDW Coeff of Hilda (11.5-14.5) % Plt Count (130-400) K/uL MPV (7.4-10.4) fL Sodium (136-145) mmol/L Potassium (3.5-5.1) mmol/L Chloride (98-107) mmol/L Carbon Dioxide (21-32) mmol/L Anion Gap (3-11) BUN (7-18) mg/dl Creatinine (0.6-1.4) mg/dl Est Cr Clr Drug Dosing ml/min Est GFR ( Amer) Est GFR (Non-Af Amer) BUN/Creatinine Ratio (10-20) Glucose (70-99) mg/dl POC Glucose 49 L* 84 231 H (70-99) mg/dl Calcium (8.5-10.1) mg/dl Total Bilirubin (0.2-1) mg/dl AST (15-37) U/L ALT (12-78) U/L Alkaline Phosphatase (45-117) U/L Lactate Dehydrogenase (87-241) U/L Total Protein (6.4-8.2) gm/dl Albumin (3.4-5.0) gm/dl Globulin (2.5-4.0) gm/dl Albumin/Globulin Ratio (0.9-2) Fluid Neutrophils % % Fluid Lymphocytes % % Fluid Eosinophils % % Fluid Basophils % % Fluid Meso/Macro/[place] % % Fluid Slide Review Fluid Urea Nitrogen Src Fluid Urea Nitrogen Pleural Fluid Source Pleural Color Pleural Appearance Pleural pH (7.3-7.4) Pleural WBC /uL Pleural RBC /uL Pleural Total Protein g/dl Pleural LDH U/L Pleural Glucose mg/dl Pleural Amylase U/L Pleural Cholesterol 09/04/20 09/04/20 09/04/20 Range/Units 11:21 11:21 10:30 WBC (4.8-10.8) K/uL RBC (4.7-6.1) M/uL Hgb (14.0-18.0) g/dL Hct (42-52) % MCV (80-100) fL MCH (25-34) pg MCHC (32-36) g/dL RDW Std Deviation (36.4-46.3) fL RDW Coeff of Hilda (11.5-14.5) % Plt Count (130-400) K/uL MPV (7.4-10.4) fL Sodium (136-145) mmol/L Potassium (3.5-5.1) mmol/L Chloride (98-107) mmol/L Carbon Dioxide (21-32) mmol/L Anion Gap (3-11) BUN (7-18) mg/dl Creatinine (0.6-1.4) mg/dl Est Cr Clr Drug Dosing ml/min Est GFR ( Amer) Est GFR (Non-Af Amer) BUN/Creatinine Ratio (10-20) Glucose (70-99) mg/dl POC Glucose (70-99) mg/dl Calcium (8.5-10.1) mg/dl Total Bilirubin 0.2 (0.2-1) mg/dl AST (15-37) U/L ALT (12-78) U/L Alkaline Phosphatase (45-117) U/L Lactate Dehydrogenase 211 (87-241) U/L Total Protein 6.0 L (6.4-8.2) gm/dl Albumin 1.8 L (3.4-5.0) gm/dl Globulin (2.5-4.0) gm/dl Albumin/Globulin Ratio (0.9-2) Fluid Neutrophils % % Fluid Lymphocytes % % Fluid Eosinophils % % Fluid Basophils % % Fluid Meso/Macro/[place] % % Fluid Slide Review Fluid Urea Nitrogen Src Pending Fluid Urea Nitrogen Pending Pleural Fluid Source Pleural Color Pleural Appearance Pleural pH (7.3-7.4) Pleural WBC /uL Pleural RBC /uL Pleural Total Protein g/dl Pleural LDH U/L Pleural Glucose mg/dl Pleural Amylase U/L Pleural Cholesterol 09/04/20 09/04/20 09/04/20 Range/Units 10:30 10:30 10:30 WBC (4.8-10.8) K/uL RBC (4.7-6.1) M/uL Hgb (14.0-18.0) g/dL Hct (42-52) % MCV (80-100) fL MCH (25-34) pg MCHC (32-36) g/dL RDW Std Deviation (36.4-46.3) fL RDW Coeff of Hilda (11.5-14.5) % Plt Count (130-400) K/uL MPV (7.4-10.4) fL Sodium (136-145) mmol/L Potassium (3.5-5.1) mmol/L Chloride (98-107) mmol/L Carbon Dioxide (21-32) mmol/L Anion Gap (3-11) BUN (7-18) mg/dl Creatinine (0.6-1.4) mg/dl Est Cr Clr Drug Dosing ml/min Est GFR ( Amer) Est GFR (Non-Af Amer) BUN/Creatinine Ratio (10-20) Glucose (70-99) mg/dl POC Glucose (70-99) mg/dl Calcium (8.5-10.1) mg/dl Total Bilirubin (0.2-1) mg/dl AST (15-37) U/L ALT (12-78) U/L Alkaline Phosphatase (45-117) U/L Lactate Dehydrogenase (87-241) U/L Total Protein (6.4-8.2) gm/dl Albumin (3.4-5.0) gm/dl Globulin (2.5-4.0) gm/dl Albumin/Globulin Ratio (0.9-2) Fluid Neutrophils % 29 % Fluid Lymphocytes % 13 % Fluid Eosinophils % 1 % Fluid Basophils % 0 % Fluid Meso/Macro/[place] % 57 % Fluid Slide Review Fluid Urea Nitrogen Src Fluid Urea Nitrogen Pleural Fluid Source LEFT LUNG Pleural Color SLIM Pleural Appearance CLOUDY Pleural pH 7.64 H (7.3-7.4) Pleural WBC 174 /uL [place] RBC 01264 /uL Pleural Total Protein 3.3 g/dl Pleural LDH 156 U/L Pleural Glucose 108 mg/dl Pleural Amylase 14 U/L Pleural Cholesterol Pending Diagnostic Findings CXR IMPRESSION: 1. Cardiomegaly and cardiac pacemaker with mild pulmonary vascular congestion. 2. Moderate to large left pleural effusion with consolidation of the left lower lung. The left upper lobe remains aerated and this is similar in appearance to yesterday. 3. The right lung appears clear. ALONDRA There is mild mitral regurgitation. No vegetations. No evidence of endocarditis When compared directly to a ALONDRA from 08/01, no change. PG Care Time/CCT Total # of Minutes Spent Total Time Spent with Patient: Total time spent is greater than 50% in coordination of care (as documented) at patient's floor/unit and/or counseling patient: Coding Level of Care Code 65599 Subseq Hosp Care Lvl 3 Diagnoses Candidemia B37.7 Acute respiratory failure with hypoxia J96.01 LLL pneumonia J18.9 Pneumonia type: due to unspecified organism Elevated troponin R77.8 COPD (chronic obstructive pulmonary disease) J44.9 COPD type: unspecified COPD Chronic pancreatitis K86.1 Pancreatitis type: unspecified pancreatitis type Insulin-requiring or dependent type II diabetes mellitus E11.9; Z79.4 Hypothyroidism (acquired) E03.9 CKD (chronic kidney disease) N18.9 Smoker F17.200 Abnormal finding on urinalysis R82.90 Positive blood culture R78.81 History of nephrostomy Hyponatremia E87.1 Constipation K59.00 DVT prophylaxis Z29.9 (1) LLL pneumonia Pneumonia type: due to unspecified organism Qualified Code(s): J18.9 - Pneumonia, unspecified organism (2) COPD (chronic obstructive pulmonary disease) COPD type: unspecified COPD Qualified Code(s): J44.9 - Chronic obstructive pulmonary disease, unspecified (3) Chronic pancreatitis Pancreatitis type: unspecified pancreatitis type Qualified Code(s): K86.1 - Other chronic pancreatitis
--- NOTE | 2020-09-05 09:44 | Urology Progress Note ---
Date of Service September 05, 2020 Assessment & Plan (1) Acute renal failure: 74 yo M with multiple comorbidities admitted for acute respiratory failure secondary to pneumonia. - Case discussed with Dr. Ordonez - He is s/p thoracentesis yesterday and due for ALONDRA today - If he progresses well and his respiratory status and overall health status is stable, then tentatively plan for ureteral stent exchange and possible bladder biopsy in OR with Dr. Ordonez later this week, likely , depending on his overall health status. Will continue to follow while inpatient. Admission and Anticipated Discharge Date Admission Date: August 25, 2020 Subjective Pt awake and lying in bed. He is NPO and this is his main complaint. Scheduled for ALONDRA today. No abdominal or flank pain. Reports he continues to leak urine from right nephrostomy site, no urine output from urethra. He is s/p thoracentesis yesterday. Reports he is scheduled for dialysis tomorrow. No f/c/n/v. Chart review: Creatinine 4.82 (previously 3.88) WBC 15.66 (previously 16.02) Hgb 9.5 1 of 4 blood cultures growing domenico glabrata complex On Caspofungin No additional concerns today. Review of Systems Constitutional: as per Subjective / HPI Gastrointestinal: as per Subjective / HPI Genitourinary: + as per Subjective / HPI Physical Exam Constitutional: comfortable; no acute distress Neck: normal visual inspection Respiratory: able to speak in complete sentences; no respiratory distress and no labored breathing 4 L O2 via NC Cardiovascular: Extremities: no pedal edema Gastrointestinal (Abdomen): Inspection/Auscultation: abdomen normal to inspection; abdomen not distended Percussion/Palpation: abdomen soft; abdomen nontender and no guarding Neurologic: moves all extremities and awake Psychiatric: Orientation: alert and oriented x 3 Genitourinary: no CVA tenderness Right nephrostomy site dressing intact, minimal drainage at this time Results & Data ([facility]) Vital Signs (Past 12 Hours) Vital Signs Temp Pulse Pulse Resp BP Pulse Ox 09/05/20 07:30 60 18 93 09/05/20 07:13 37.1 C 61 16 168/69 H 95 09/04/20 23:28 36.3 C L 60 16 150/76 H 96 PG Care Time/CCT Total # of Minutes Spent Total Time Spent with Patient: Total time spent is greater than 50% in coordination of care (as documented) at patient's floor/unit and/or counseling patient: Coding Level of Care Code 76793 Subseq Hosp Care Lvl 2 Diagnoses Acute renal failure N17.9
[2020-09-05] MEDS: PANCREAZE (LIPASE 10,500U) CAP PO SCH ×3 (09:54→17:57)
[2020-09-05] MEDS: SEVELAMER HCL 800 MG TABLET PO SCH ×3 (09:54→17:57)
[2020-09-05] MEDS: NICOTINE 14 MG/24 HR PATCH TD SCH (10:34)
[2020-09-05] MEDS: HEPARIN SOD 5,000 UNIT/0.5 ML VIAL SQ SCH (10:35)
[2020-09-05] MEDS: UMECLIDINIUM BROMIDE 62.5MCG/BLISTER 7 PUFFS/INHALER INH SCH (10:36)
[2020-09-05] MEDS: CASPOFUNGIN 50 MG in SODIUM CHLORIDE 0.9% 250 ML IV SCH (10:36)
--- NOTE | 2020-09-05 10:48 | Pre Anesthesia Assessment ---
Date of Service September 05, 2020 Pre Sedation Assessment Vital Signs Temp Pulse Pulse Resp BP Pulse Ox 09/05/20 07:30 60 18 93 09/05/20 07:13 37.1 C 61 16 168/69 H 95 09/04/20 23:28 36.3 C L 60 16 150/76 H 96 09/04/20 19:16 60 18 95 09/04/20 15:09 36.8 C 60 18 160/72 H 94 Cardiovascular + regular rate Respiratory + respiratory effort normal Additional Comments: on supplemental oxygen Pre-Sedation Airway Assessment Smoking Status: Former smoker Hx Difficult Intubation: No Short, Thick Neck: No Thyromental Distance: > or= 3.5 Finger Breadths Oral Cavity: + WNL Mallampati Class: III ASA: ASA3 Procedure Planning Contraindications for Sedation: none Current Medications Reviewed: Yes Notes The planned sedation has been discussed with the patient. Informed Consent was obtained. I have identified the patient, determined the appropriateness of sedation and have assessed the patient immediately prior to the procedure. All medicine(s) and interventions are by my order.
--- NOTE | 2020-09-05 11:43 | Pulmonology Progress Note ---
Date of Service September 05, 2020 Assessment & Plan (1) Pleural effusion on left: Chest x-ray 09/03/2020: Personally reviewed: Opacification of the left hemithorax, no mediastinal shift, right costophrenic angle and cardiophrenic angle carotid clean., Dual-lead pacemaker in place. This chest x-ray was compared to the chest x-ray done on 08/25. Patient had left-sided pleural effusion at that time as well --Opacification of the left hemithorax From large complex pleural effusion given fibrillation appreciated in the effusion Status post thoracentesis 09/04/2020, removal of 2.2L dark yellow fluid. Exudative as per lights criteria Pleural fluid:- Protein 3.3, LDH 156, pH 7.64, glucose 108 Serum:- Protein 6, LDH 211 Follow-up culture Given the history of obstructive kidney failure. Possibility of Urothorax is also there. Follow-up fluid urea If the culture is positive patient might need chest tube placement. --COPD Not on any inhalers at home. Continue with Incruse on a daily basis. Will benefit from PFTs as an outpatient. --Candidemia On caspofungin, recommend following up sensitivities because of increasing resistance Difficult to treat especially given that the patient has pacemaker as well Treatment as per primary team Plan: Chest x-ray from today does not show any significant change in the left-sided pleural effusion compared to yesterday's one (s/p thora). Plan for thoracentesis tomorrow if there is no other surgeries planned. Hold heparin. Please note the above document was generated using voice recognition software. It may contain grammatical, syntax or spelling errors.Any formal questions or concerns about the content, text or information contained within the body of this dictation should be directly addressed to the provider for clarification. (2) COPD (chronic obstructive pulmonary disease): COPD type: unspecified COPD Qualified Code(s): J44.9 - Chronic obstructive pulmonary disease, unspecified (3) Acute respiratory failure with hypoxia: Admission and Anticipated Discharge Date Admission Date: August 25, 2020 Subjective Patient seen and examined at bedside. No acute distress, no adverse events overnight. Patient states he is breathing better compared to yesterday after thoracentesis. Denies any chest pain, no headache, no dizziness. no nausea, no vomiting. No belly pain. Tolerating diet. No diarrhea. Review of Systems Review of Systems: All systems reviewed & are unremarkable except as noted in Subjective Physical Exam Physical Exam: Constitutional: No acute distress HEENT: EOMI, PERRLA Respiratory system: Decreased air entry on the left side, positive crackles bilateral lower lobes, no wheeze, no rhonchi CVS: S1-S2 positive Abdomen: Soft, nontender, nondistended, positive bowel sounds x4, obese Extremities: +2 pulses bilaterally radialis/ dorsalis pedis, no cyanosis, +1 edema bilateral lower extremity Neuro: Awake alert oriented x3 Psych: Normal mood and affect G/U: No [place] Skin: no rashes, warm and dry Lymphatic: no cervical or axillary lymphadenopathy Results & Data Results & Data ([facility]) Vital Signs (Past 12 Hours) Vital Signs Temp Pulse Pulse Resp BP Pulse Ox 09/05/20 07:30 60 18 93 09/05/20 07:13 37.1 C 61 16 168/69 H 95 09/05/20 06:27 09/05/20 06:27 PG Care Time/CCT Total # of Minutes Spent Total Time Spent with Patient: Total time spent is greater than 50% in coordination of care (as documented) at patient's floor/unit and/or counseling patient: Coding Level of Care Code 75052 Subseq Hosp Care Lvl 3 Diagnoses Pleural effusion on left J90 COPD (chronic obstructive pulmonary disease) J44.9 COPD type: unspecified COPD Acute respiratory failure with hypoxia J96.01
[2020-09-05] MEDS ORDERED: MIDAZOLAM HCL 1 MG/ML 2ML VIAL ONE (12:26)
[2020-09-05] MEDS ORDERED: fentaNYL citrate 100 MCG/2 ML VIAL ONE (12:26)
--- NOTE | 2020-09-05 12:49 | Post Anesthesia Assessment ---
Date of Service September 05, 2020 Post Sedation Assessment Vital Signs Temp Pulse Pulse Pulse Resp BP Pulse Ox 09/05/20 12:45 60 18 130/54 L 95 09/05/20 12:40 64 18 156/58 H 98 09/05/20 12:37 60 18 173/51 H 97 09/05/20 12:35 60 18 175/69 H 96 09/05/20 07:30 60 18 93 09/05/20 07:13 37.1 C 61 16 168/69 H 95 09/04/20 23:28 36.3 C L 60 16 150/76 H 96 09/04/20 19:16 60 18 95 09/04/20 15:09 36.8 C 60 18 160/72 H 94 Recovery Score Activity: Moves 4 extremities Respiration: Deep Breath/Cough Circulation: +/-20% PreAnes Value Consciousness: Fully Awake Oxygen Saturation: > 92% On Room Air Discharge Sedation Level of Care: Fast Track Phase II Post Sedation Plan On clinical assessment, the patient appears to have tolerated the sedation without complications. Patient is recovering as anticipated. Patient will continue to be monitored by nursing and may be discharged when sedation discharge criteria are met per below protocol. Upon Completions of procedure up to 15 minutes continue every 5 minute vital signs and the P.A.R. score; then discharge to a Phase I or Fast Track to Phase II per the following guidelines: * Discharge Patient to appropriate Phase II area if PAR is 8 or greater or return to pre- procedure baseline. The post - procedure orders will be as directed. * If PAR score is less than 8 or not return to pre-procedure baseline then patient will follow Phase I monitoring till PAR is reached for Phase II. The Phase I may be done in procedure room or may call to secure a Phase I area. * If naloxone or flumazenil are used for reversal, hold in Phase I for continued monitoring from when last reversal dose was given for a minimum of 60 minutes or longer pending the nurse and/or physician discretion of patient condition before discharge to Phase II. Please call the Sedation Physician to re-evaluate and complete post-note for discharge to Phase II area. Do NOT discharge from procedure sedation or Phase 1 until post- sedation evaluation note is complete by procedure /sedation MD Sedation Discharge Instructions to be given to the patient at discharge to home.
[2020-09-05] MEDS: TAMSULOSIN HCL 0.4 MG CAP PO SCH (14:43)
[2020-09-05] MEDS: GABAPENTIN 300 MG CAP PO SCH (14:43)
[2020-09-05] MEDS: NEPHROCAPS PO SCH (14:44)
[2020-09-05] MEDS: METOPROLOL TARTRATE 25 MG TAB PO SCH ×2 (14:44→20:01)
[2020-09-05] MEDS: amLODIPine BESYLATE 5 MG TAB PO SCH (14:45)
[2020-09-05] MEDS: hydrALAZINE 10 MG TAB PO SCH ×2 (14:45→20:02)
--- NOTE | 2020-09-05 14:50 | XCELERA ---
[id number]
--- NOTE | 2020-09-05 17:19 | Nephrology Progress Note ---
Date of Service September 05, 2020 Assessment & Plan (1) ESRD needing dialysis: HD TTS. Plan to continue HD at [facility] post discharge under the care of Dr. Dugan. Qb has been at goal. AVG functioning well. Clearance has been adequate. Medications are appropriately dosed for kidney function. Renal MVI daily. Renvela QAC for hyperphosphatemia. (2) Anemia: Venofer completed during recent admission. Epogen provided Q Saturday as inpat ient. Admission and Anticipated Discharge Date Admission Date: August 25, 2020 Subjective No acute events overnight. TTE completed this AM. Review of Systems Review of Systems: All systems reviewed & are unremarkable except as noted in HPI & below Physical Exam Constitutional: well developed; no acute distress Eyes: + anicteric sclerae; no corneal abnormality ENMT: Mouth: no oral mucosal abnormality and oral mucous membranes not dry Neck: normal visual inspection and trachea midline Respiratory: normal respiratory effort Auscultation: lungs clear to auscultation bilaterally Cardiovascular: Rate/Rhythm: regular rate Heart Sounds: normal S1 and normal S2 Extremities: no edema Musculoskeletal: Extremities: no cyanosis and no clubbing Skin: normal turgor; no lesions Neurologic: Motor/Sensory: no tremor and no asterixis Psychiatric: Orientation: alert and oriented x 3 Results & Data ([place]) Vital Signs (Past 12 Hours) Vital Signs Temp Pulse Pulse Pulse Resp BP Pulse Ox 09/05/20 15:09 37.7 C H 61 18 175/69 H 92 09/05/20 14:37 37.1 C 60 18 173/67 H 94 09/05/20 14:01 37.1 C 58 L 18 164/71 H 92 09/05/20 13:40 36.9 C 60 18 164/61 H 95 09/05/20 13:15 61 16 158/54 H 99 09/05/20 13:00 60 16 151/60 H 94 09/05/20 12:45 60 60 18 130/54 L 95 09/05/20 12:40 64 18 156/58 H 98 09/05/20 12:37 60 18 173/51 H 97 09/05/20 12:35 60 18 175/69 H 96 09/05/20 07:30 60 18 93 09/05/20 07:13 37.1 C 61 16 168/69 H 95 Laboratory Results Laboratory Results - last 24 hr 09/04/20 09/04/20 09/04/20 10:30 18:12 21:11 WBC RBC Hgb Hct MCV MCH MCHC RDW Std Deviation RDW Coeff of Hilda Plt Count MPV Sodium Potassium Chloride Carbon Dioxide Anion Gap BUN Creatinine Est Cr Clr Drug Dosing Est GFR ( Amer) Est GFR (Non-Af Amer) BUN/Creatinine Ratio Glucose POC Glucose 84 49 L* Calcium Total Bilirubin AST ALT Alkaline Phosphatase Total Protein Albumin Globulin Albumin/Globulin Ratio Fluid Slide Review COVID-19 Eval Order SARS-CoV-2, RNA, NAAT 09/04/20 09/04/20 09/04/20 21:30 21:45 21:59 WBC RBC Hgb Hct MCV MCH MCHC RDW Std Deviation RDW Coeff of Hilda Plt Count MPV Sodium Potassium Chloride Carbon Dioxide Anion Gap BUN Creatinine Est Cr Clr Drug Dosing Est GFR ( Amer) Est GFR (Non-Af Amer) BUN/Creatinine Ratio Glucose POC Glucose 47 L* 45 L* 55 L* Calcium Total Bilirubin AST ALT Alkaline Phosphatase Total Protein Albumin Globulin Albumin/Globulin Ratio Fluid Slide Review COVID-19 Eval Order SARS-CoV-2, RNA, NAAT 09/04/20 09/04/20 09/05/20 21:59 22:17 00:00 WBC RBC Hgb Hct MCV MCH MCHC RDW Std Deviation RDW Coeff of Hilda Plt Count MPV Sodium Potassium Chloride Carbon Dioxide Anion Gap BUN Creatinine Est Cr Clr Drug Dosing Est GFR ( Amer) Est GFR (Non-Af Amer) BUN/Creatinine Ratio Glucose POC Glucose 55 L* 99 151 H Calcium Total Bilirubin AST ALT Alkaline Phosphatase Total Protein Albumin Globulin Albumin/Globulin Ratio Fluid Slide Review COVID-19 Eval Order SARS-CoV-2, RNA, NAAT 09/05/20 09/05/20 09/05/20 05:14 06:27 06:27 WBC 15.66 H RBC 3.25 L Hgb 9.5 L Hct 31.5 L MCV 96.9 MCH 29.2 MCHC 30.2 L RDW Std Deviation 58.4 H RDW Coeff of Hilda 17.2 H Plt Count 376 MPV 8.6 Sodium 136 Potassium 4.6 D Chloride 100 Carbon Dioxide 30 Anion Gap 6.0 BUN 41 H Creatinine 4.82 H* D Est Cr Clr Drug Dosing 16.7 Est GFR ( Amer) 13.0 Est GFR (Non-Af Amer) 11.2 BUN/Creatinine Ratio 8.5 L Glucose 142 H POC Glucose 160 H Calcium 7.9 L Total Bilirubin 0.3 AST 33 ALT 30 Alkaline Phosphatase 80 Total Protein 5.6 L Albumin 1.7 L Globulin 3.9 Albumin/Globulin Ratio 0.4 L Fluid Slide Review COVID-19 Eval Order SARS-CoV-2, RNA, NAAT 09/05/20 09/05/20 09/05/20 11:37 11:37 13:43 WBC RBC Hgb Hct MCV MCH MCHC RDW Std Deviation RDW Coeff of Hilda Plt Count MPV Sodium Potassium Chloride Carbon Dioxide Anion Gap BUN Creatinine Est Cr Clr Drug Dosing Est GFR ( Amer) Est GFR (Non-Af Amer) BUN/Creatinine Ratio Glucose POC Glucose 211 H Calcium Total Bilirubin AST ALT Alkaline Phosphatase Total Protein Albumin Globulin Albumin/Globulin Ratio Fluid Slide Review COVID-19 Eval [facility] SARS-CoV-2, RNA, NAAT NEGATIVE PG Care Time/CCT Total # of Minutes Spent Total Time Spent with Patient: Total time spent is greater than 50% in coordination of care (as documented) at patient's floor/unit and/or counseling patient: Coding Level of Care Code 20700 Subseq Hosp Care Lvl 3 Diagnoses ESRD needing dialysis N18.6; Z99.2 Anemia D64.9
--- NOTE | 2020-09-05 18:13 | Palliative Care Consultation ---
Date of Consultation September 05, 2020 Assessment & Plan (1) Palliative care encounter: This is a 74-year-old male who presented to the [facility] with SOB on 08/25/20 that was occurring for over two days. Additional PMH includes: COPD, ESRD Hemodialysis dependent, chronic pancreatitis, DM2, and hypothyroidism. He has been negative for COVID-19. Over the past several months he has been evaluated for renal failure, ureteral obstruction, and bladder lesions. He has underwent nephrostomy tube placement, and ureteral stent placement. The nephew tube was removed a month ago and he has experienced consistent leaking at the nephew tube site. His breathing has been most worrisome to him. A thoracentesis was performed yesterday with removal of 2200 mL of dark yellow fluid. His WBC is increasing from 15--> 16.02. His creatinine is 3.88 and his albumin is 1.8. Due to having multiple co-morbidities and poor prognosis, palliative care was consulted to discuss goals of care and code status as he is a Full Code. I was able to meet with this individual who was initially alone in his room. He was in no apparent distress on O2. We were able to discuss his current hospitalization and he did become tearful during the conversation. He said he knows he is getting worse, but "is not ready to give up yet". He said his does care for him at home and he does not like that he depends on her for care. The patient stated a few times in our conversation that he wishes he would be able to have his oxygen covered for when he is not in the hospital. He states that he never qualifies for it and then he goes home and declines a few days later. We discussed palliative care and hospice to go over both capabilities. He was receptive to discussing the possibility of palliative care at home services. This idea, may provide him with some oxygen needs if he does not meet clearance for supplemental oxygen at home. In discussing his code status, he would like to remain a full code at this time, but was clear he would not want to be kept alive on a ventilator usp. His , Mikayla Bliss, did come into the room mid conversation and kept saying "all of these decisions are your own" but she was supportive of him proceeding with the scheduled ALONDRA today and likely neph tube replacement on . For now, we will continue to follow peripherally until and see how he tolerates these procedure and readdress goals of care later this week, or sooner, if he would require. (2) COPD (chronic obstructive pulmonary disease): COPD type: unspecified COPD Qualified Code(s): J44.9 - Chronic obstructive pulmonary disease, unspecified (3) History of nephrostomy: (4) Enterococcal septicemia: (5) ESRD needing dialysis: History of Present Illness Reason for Consultation: Goals of Care Requesting Physician: Sydnie SARMIENTO Attending Physician: Brennan Metcalf MD History of Present Illness This is a 74-year-old male who presented to the [facility] with SOB on 08/25/20 that was occurring for over two days. Additional PMH includes: COPD, ESRD Hemodialysis dependent, chronic pancreatitis, DM2, and hypothyroidism. He has been negative for COVID-19. Over the past several months he has been evaluated for renal failure, ureteral obstruction, and bladder lesions. He has underwent nephrostomy tube placement, and ureteral stent placement. The nephew tube was removed a month ago and he has experienced consistent leaking at the nephew tube site. His breathing has been most worrisome to him. A thoracentesis was performed yesterday with removal of 2200 mL of dark yellow fluid. His WBC is increasing from 15--> 16.02. His creatinine is 3.88 and his albumin is 1.8. Due to having multiple co-morbidities and poor prognosis, palliative care was consulted to discuss goals of care and code status as he is a Full Code. Please see A/P for further details. Thank you kindly for involving the Palliative Care Consultation service with this individual. Allergies Allergy/AdvReac Type Severity Reaction Status Date / Time lisinopril Allergy Unknown Unverified 08/25/20 09:28 ASPIRIN (IN DOSES LARGER AdvReac Intermediate N/V Uncoded 08/25/20 09:28 THAN 81MG) Home Medications Home Medications Medication Instructions Recorded Confirmed Type Creon 1 cap PO TIDM #0 05/22/15 08/25/20 History gabapentin 300 mg PO QAM #0 05/22/15 08/25/20 History grape seed extract 100 mg PO QPM #0 05/22/15 08/25/20 History levothyroxine 88 mcg PO QAM #0 05/22/15 08/25/20 History multivitamin with minerals [Men's 1 tab PO DAILY #0 05/22/15 08/25/20 History One Daily] atorvastatin [Lipitor] 20 mg PO QAM #0 tab 05/05/18 08/25/20 History metoprolol tartrate 25 mg PO BID 12/29/19 08/25/20 History amlodipine 10 mg PO QAM 06/22/20 08/25/20 History hydralazine 10 mg PO BID 06/22/20 08/25/20 History albuterol sulfate [Ventolin HFA] 2 puff INHALATION QID PRN 07/25/20 08/25/20 History budesonide-formoterol [Symbicort] 2 inh INHALATION HS PRN 07/25/20 08/25/20 History insulin asp prt-insulin aspart 16 unit SUBCUT AMPM 07/25/20 08/25/20 History [Novolog Mix 70-30FlexPen U-100] oxycodone-acetaminophen [Percocet] 1 tab PO Q4H PRN 07/25/20 08/25/20 History tamsulosin [Flomax] 0.4 mg PO DAILY 08/14/20 08/25/20 History tiotropium bromide 2 puff INHALATION DAILY 08/14/20 08/25/20 History acetaminophen 500 - 1,000 mg PO Q6H PRN 08/25/20 08/25/20 History cinnamon bark [Cinnamon] 500 mg PO DAILY 08/25/20 08/25/20 History cranberry 400 mg PO DAILY 08/25/20 08/25/20 History Patient History Medical History Acute renal failure on dialysis Agent [place] poisoning Chronic pancreatitis Elevated troponin ESRD needing dialysis GERD (gastroesophageal reflux disease) History of pacemaker Hyperlipidemia LDL goal <70 Hypertension Hypothyroidism (acquired) Insulin-requiring or dependent type II diabetes mellitus Morbid obesity Pancreatic insufficiency Peripheral neuropathy Smoker Surgical History History of permanent cardiac pacemaker placement Family History Other Family history non-contributory Social History Smoking Status: Former smoker Tobacco Type: Cigarettes Cigarettes Per Day: 15; Second Hand Exposure: No; Hx Alcohol Use: No Hx Substance Use: No Preferred Language: Marshallese Communication Ability: Effective Microfilm Equipment Inspector Required: No Beliefs That Will Affect Care: None marital status: Current Living Situation: Spouse Other Information That Helps Us Care for You: No Feels Safe at Home: Yes Safety Concerns: Feels Safe At This Time Assistive Devices: Brace/Splint/Immobilizer, Glasses, Oxygen - Continuous and Walker Assistive Devices Comment: Only use the uppers Physical Exam Constitutional: + ill appearing, + well hydrated, cooperative and comfortable Respiratory: normal respiratory effort and + cough Auscultation: + diminished lung sounds Cardiovascular: Rate/Rhythm: regular rate and regular rhythm Extremities: normal capillary refill and + edema Gastrointestinal (Abdomen): normal bowel sounds, soft, nontender, no hepatosplenomegaly Percussion/Palpation: abdomen soft Skin: no rashes, warm and dry Psychiatric: A+Ox3, euthymic affect Genitourinary: urinal Results & Data ([facility]) Vital Signs (Past 12 Hours) Vital Signs Temp Pulse Pulse Pulse Resp BP Pulse Ox 09/05/20 15:09 37.7 C H 61 18 175/69 H 92 09/05/20 14:37 37.1 C 60 18 173/67 H 94 09/05/20 14:01 37.1 C 58 L 18 164/71 H 92 09/05/20 13:40 36.9 C 60 18 164/61 H 95 09/05/20 13:15 61 16 158/54 H 99 09/05/20 13:00 60 16 151/60 H 94 09/05/20 12:45 60 60 18 130/54 L 95 09/05/20 12:40 64 18 156/58 H 98 09/05/20 12:37 60 18 173/51 H 97 09/05/20 12:35 60 18 175/69 H 96 09/05/20 07:30 60 18 93 09/05/20 07:13 37.1 C 61 16 168/69 H 95 PG Care Time/CCT Total # of Minutes Spent Total Time Spent with Patient: Total time spent is greater than 50% in coordination of care (as documented) at patient's floor/unit and/or counseling patient: 70 Coding Level of Care Code 36408 Inpt Consult Level 3 Diagnoses Palliative care encounter Z51.5 COPD (chronic obstructive pulmonary disease) J44.9 COPD type: unspecified COPD History of nephrostomy Enterococcal septicemia A41.81 ESRD needing dialysis N18.6; Z99.2 Time Spent (min) 70 Time Spent Midlevel Total time spent 70 minutes with > 50% of that time spent assessing the patient, discussing goals of care with the patient and family, along with collaborating with IDT.
[2020-09-05] MEDS: INSULIN GLARGINE SOLOSTAR 100 UNITS/ML 3 ML PEN SC SCH (20:54)
[2020-09-06] MEDS: LEVOTHYROXINE SODIUM 100 MCG TABLET PO SCH (05:52)
[2020-09-06 07:04] LABS: Hematocrit (blood only) 32.9 % (42-52); Hemoglobin 9.9 g/dL (14.0-18.0); Mean Corpuscular Hemoglobin 29.1 pg (25-34); Mean Corpuscular Hgb Conc 30.1 g/dL (32-36); Mean Corpuscular Volume 96.8 fL (80-100); Mean Platelet Volume 8.6 fL (7.4-10.4); Platelet Count 357 K/uL (130-400); RDW Coefficient of Variation 17.2 % (11.5-14.5); RDW Standard Deviation 59.1 fL (36.4-46.3); White Blood Count 19.64 K/uL (4.8-10.8)
[2020-09-06] MEDS: ALBUT/IPRATROP 3MG/0.5MG NEB 3 ML VIAL NEB PRN (07:15)
[2020-09-06] MEDS: ACETYLCYSTEINE 20% INHAL SOLN 4ML ***DISPENSED BY RESP. INH SCH (07:15)
[2020-09-06 07:53] LABS: Albumin Globulin Ratio 0.4 (0.9-2); Albumin Level 1.8 gm/dl (3.4-5.0); Bilirubin,Total 0.3 mg/dl (0.2-1); Calcium 8.3 mg/dl (8.5-10.1); Creatinine Clr Calc Pharmacy 13.2 ml/min; Est GFR (African American) 9.7; Est GFR (Non-African American) 8.4; Globulin 4.3 gm/dl (2.5-4.0); Phosphorus 6.3 mg/dl (2.5-4.9); Potassium 4.9 mmol/L (3.5-5.1); Total Protein 6.1 gm/dl (6.4-8.2)
--- NOTE | 2020-09-06 08:11 | Urology Progress Note ---
Date of Service September 06, 2020 Assessment & Plan (1) Acute renal failure on dialysis: 74 yo M with multiple comorbidities admitted for acute respiratory failure secondary to pneumonia. - Case discussed with Dr. Ordonez - ALONDRA yesterday and scheduled for probable thoracentesis today - Palliative care consult noted - If he progresses well and his respiratory status and overall health status is stable, then tentatively plan for ureteral stent exchange and possible bladder biopsy in OR with Dr. Ordonez on , depending on his overall health status. Will continue to follow while inpatient. Admission and Anticipated Discharge Date Admission Date: August 25, 2020 Subjective Pt awake and lying in bed this AM. Had ALONDRA yesterday. No issues overnight. Reports poor sleep, but otherwise no complaints this AM. No flank or abdominal pain. Continues to leak from right nephrostomy site, no urine output per urethra. Tolerating diet. Had multiple BMs yesterday. No f/c/n/v. Possible Thoracentesis scheduled today. Palliative care consult noted. Lab work: Creatinine 6.10, WBC 19.64, Hgb 9.9 Review of Systems Constitutional: as per Subjective / HPI Gastrointestinal: as per Subjective / HPI Genitourinary: + as per Subjective / HPI Physical Exam Constitutional: comfortable; no acute distress chronically ill appearing Respiratory: able to speak in complete sentences; no respiratory distress, no labored breathing, does not use accessory muscles and not tachypneic 3L O2 via NC Cardiovascular: Extremities: no pedal edema Gastrointestinal (Abdomen): Inspection/Auscultation: abdomen normal to inspection; abdomen not distended Percussion/Palpation: abdomen soft; abdomen nontender and no guarding Musculoskeletal: Head/Neck/Chest: normocephalic and head atraumatic Skin: warm and dry Neurologic: moves all extremities and awake Psychiatric: Orientation: alert and oriented x 3 Genitourinary: no CVA tenderness right nephrostomy site with dressing intact, minimal draining noted Results & Data ([facility]) Vital Signs (Past 12 Hours) Vital Signs Temp Pulse Resp BP Pulse Ox 09/06/20 07:15 61 18 95 09/06/20 00:24 36.9 C 63 18 140/77 92 PG Care Time/CCT Total # of Minutes Spent Total Time Spent with Patient: Total time spent is greater than 50% in coordination of care (as documented) at patient's floor/unit and/or counseling patient: Coding Level of Care Code 31791 Subseq Hosp Care Lvl 2 Diagnoses Acute renal failure on dialysis N17.9; Z99.2
[2020-09-06] MEDS ORDERED: INSULIN GLARGINE SOLOSTAR 100 UNITS/ML 3 ML PEN SC SCH (09:00)
[2020-09-06] MEDS: INSULIN ASPART 100 UNITS/ML 3 ML PEN SC SCH ×4 (09:06→20:50)
[2020-09-06] MEDS: TAMSULOSIN HCL 0.4 MG CAP PO SCH (09:07)
[2020-09-06] MEDS: SEVELAMER HCL 800 MG TABLET PO SCH ×3 (09:07→17:24)
[2020-09-06] MEDS: GABAPENTIN 300 MG CAP PO SCH (09:07)
[2020-09-06] MEDS: PANCREAZE (LIPASE 10,500U) CAP PO SCH ×3 (09:07→17:26)
[2020-09-06] MEDS: NEPHROCAPS PO SCH (09:07)
[2020-09-06] MEDS: CASPOFUNGIN 50 MG in SODIUM CHLORIDE 0.9% 250 ML IV SCH (09:07)
[2020-09-06] MEDS: UMECLIDINIUM BROMIDE 62.5MCG/BLISTER 7 PUFFS/INHALER INH SCH (09:07)
[2020-09-06] MEDS: METOPROLOL TARTRATE 25 MG TAB PO SCH ×2 (09:08→20:41)
[2020-09-06] MEDS: amLODIPine BESYLATE 5 MG TAB PO SCH (09:08)
[2020-09-06] MEDS: NICOTINE 14 MG/24 HR PATCH TD SCH (09:08)
[2020-09-06] MEDS: hydrALAZINE 10 MG TAB PO SCH ×2 (09:08→20:40)
--- NOTE | 2020-09-06 09:48 | XRay Report ---
XR chest 1V portable HISTORY: 74 years-old Male f/u acute shortness of breath COMPARISON: Chest radiograph 09/05/2020 TECHNIQUE: Portable AP view of the chest FINDINGS: Cardiac silhouette is enlarged, unchanged. Left subclavian pacer. Pulmonary vascular congestion. Righ t lung is clear. Moderate to large left pleural effusion with left lung base consolidation. Mildly ae rated left upper lung appears unchanged. Bones appear grossly intact. IMPRESSION: 1. Cardiomegaly with pulmonary vascular congestion. 2. Moderate to large left pleural effusion with left lung base consolidation appears unchanged. ACT 112: Negative or not required by law. The above report was generated using voice recognition software. It may contain grammatical, syntax o r spelling errors. Electronically signed by: Michael Truong M.D. 09/06/2020 9:46 AM
[2020-09-06] MEDS ORDERED: NITROGLYCERIN 2% OINTMENT 30GM TUBE EXT ONE (09:57)
--- NOTE | 2020-09-06 10:08 | Hospitalist Progress Note ---
Date of Service September 06, 2020 Assessment & Plan (1) Chest pain: * Reported this morning -- wax/waning, sharp/stabbing. * Nitropaste * EKG with atrial paced rhythm with prolonged AV conduction, non-specific intraventricular block. Electronic atrial pacemaker has replaced electronic ventricular pacemaker and ventricular rate decreased by 83bpm * Troponin unchanged from 08/25 -- likely related to his CKD as well as pericardial effusion/volume overload * Pain could also be contributed by the fluid and compression of phrenic nerve * Pain improved with nitropaste and will continue to monitor on third floor per patient request at this time (2) Candidemia: * 1 of four blood cultures growing domenico glabrata complex. * ID consulted - recommended echo which was unrevealing for vegetation, recommends ALONDRA * ALONDRA without vegetations noted * Repeat blood cultures until negative - repeated and patient with temp 37.7C this afternoon * Pulm recommending sensitivities due to increased resistances. Discussed with lab -- sent to [facility] * Pleural blood urea pending given possibility of urothorax. Also added pleural cr but is a send out as well and will take several days * Patient will need two weeks of caspofungin from last positive blood culture. Last negative culture 09/02 NGTD -- follow (3) Acute respiratory failure with hypoxia: * Complete opacification of the left lung on CXR 09/02 - secondary to large complex pleural effusion * Pulm consulted - thoracentesis 09/04 drained 2.2 liters Pleural fluid with EXUDATIVE process. protein 3.3, LDH 156, pH 7.64H, glucose 108. Serum protein 6, LDH 211 * Pleural urea pending given possible urothorax. pleural cr send-out. * Pleural fluid with few WBCs, no organisms seen. No growth to date -- follow * CXR with persistent large LEFT effusion * Thoracentesis today also exudative in appearance and drained 900cc. (2.2L on 09/04) * Body fluid slide with atypical cells present, cannot exclude malignancy. Cytology pending --> Rare atypical cells present. * Comment: The specimen consists primarily of blood and scattered histiocytes. There are very rare large atypical epithelial cells present. Although rare, these cells are worrisome for a malignant process. If the patient's pleural effusion re-accumulates then additional cytologic evaluation is recommended. * Repeat CXR with mildly decreased size of L effusion. No pneumothorax * CT Chest w/o -- small right and moderate to large left pleural effusions. mild dependent subsegmental right basilar atelectasis with compressive atelectasis of the left upper lobe and lingula. Near complete consolidation/collapse of the left lower lobe. Small pericardial effusion with new mild stranding within the mediastinal fat and epicardium, likely related to fluid overload. 5 mm groundglass nodule of the right lung apex. 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 * Completed 7 days of Zosyn * See above under respiratory failure (6) Elevated troponin: * No angina, did have 2 echos last admission( one that was ALONDRA) with preserved EF, continuing metoprolol. Resume hydralazine and amlodipine as pressures have been increasing * Trop 0.074 on admission and essentially unchanged x2 after admission * Trop 12/29/19 at 0.094, likely chronically elevated in the setting of CKD IV * Trop unchanged today as above (7) COPD (chronic obstructive pulmonary disease): * Home symbicort, Spiriva * No further prednisone -- received 40 mg x 5 days (8) Chronic pancreatitis: * has no complaints of abd pain, will continue creon (9) Insulin-requiring or dependent type II diabetes mellitus: * Pt required iv insulin gtt initially but is now on subq insulin. Managed by pharmacy * A1c 6.6 * Will likely need reduction in insulin at discharge to prevent hypoglycemia but will continue to monitor (10) Hypothyroidism (acquired): * synthroid 88 mcg was recently increased to [facility]mcg by [facility], however states this was not started yet * Dose adjusted 08/27 * Continue 100mcg daily (11) Smoker: * nicotine patch (12) Abnormal finding on urinalysis: * 3+ leuk est, neg nitrites, yeast noted * Urine cx mixed skin nu - dc'd dapto (13) Positive blood culture: * As above (14) History of nephrostomy: * Removed 08/04 but with increasing urine drainage. Urology consulted - Does not recommend suturing closed. May upsize his ureteral stent later this week -- planned for SATURDAY with possible biopsy. Will need to be NPO after midnight on Friday 09/07 (15) Hyponatremia: * Resolved. Na 137 (16) Constipation: * Resolved (17) Hyperphosphatemia: * Sevelamer 800mg BID per nephrology * Continue to monitor (18) DVT prophylaxis: * Heparin sc bid on hold for thoracentesis and will hold for chest tube planned for tomorrow Pt states that the [facility] has been working to get him approved for a [facility] for use when away from home PT/OT - recommending rehab but patient is refusing. He and his feel he can come home. is attempting to find some caregivers to come in for a few hours each day Mr. Morales has multiple issues at hand with severe deconditioning and poor nutritional status. His prognosis is poor at this point. Evaluated by palliative care 09/05 -- plans to treat current state and possibly move forward with skilled with transition to hospice at discharge if able Admission and Anticipated Discharge Date Admission Date: August 25, 2020 Subjective Patient evaluated this morning for reports of chest pain. Lasting several hours this morning, off and on with associated feeling clammy/diaphoretic. Radiates across his chest to the right across the bottom of rib cages. Waxes and wanes not improved or worsened with activity. Described as a sharp, stabbing pain. Discussed obtaining EKG and troponin but that we may have to move him down to a telemetry bed. Patient would not like to be moved at this time unless absolutely necessary. States "don't let me ". Review of Systems Review of Systems: All systems reviewed & are unremarkable except as noted in HPI & below Physical Exam Constitutional: + ill appearing, + frail appearing and cooperative; no acute distress Eyes: + anicteric sclerae and PERRL ENMT: mmm Neck: normal visual inspection and trachea midline Respiratory: normal respiratory effort, + cough and able to speak in complete sentences; no labored breathing, does not use accessory muscles and not tachypneic Auscultation: + diminished lung sounds and + crackles (bilateral); no rhonchi and no wheezes Cardiovascular: RRR, no murmur, no edema Extremities: + edema and + AV fistula (R) left chest edema -- minimally tender to palpation across precordium Gastrointestinal (Abdomen): normal bowel sounds, soft, nontender, no hepatosplenomegaly Inspection/Auscultation: + abdominal edema Musculoskeletal: Head/Neck/Chest: normocephalic and head atraumatic Neurologic: moves all extremities and awake; not confused Psychiatric: Orientation: alert and oriented x 3 Genitourinary: no CVA tenderness Right nephrostomy site dressing intact, minimal drainage noted Results & Data Results & Data ([facility]) Vital Signs (Past 12 Hours) Vital Signs Temp Pulse Resp BP Pulse Ox 09/06/20 09:48 37.5 C 60 20 135/49 L 95 09/06/20 08:18 37.7 C H 63 16 152/69 H 90 09/06/20 07:15 61 18 95 09/06/20 00:24 36.9 C 63 18 140/77 92 Laboratory Results 09/06/20 09/06/20 09/06/20 Range/Units 08:20 06:46 06:46 WBC (4.8-10.8) K/uL RBC (4.7-6.1) M/uL Hgb (14.0-18.0) g/dL Hct (42-52) % MCV (80-100) fL MCH (25-34) pg MCHC (32-36) g/dL RDW Std Deviation (36.4-46.3) fL RDW Coeff of Hilda (11.5-14.5) % Plt Count (130-400) K/uL MPV (7.4-10.4) fL Sodium 137 (136-145) mmol/L Potassium 4.9 (3.5-5.1) mmol/L Chloride 101 (98-107) mmol/L Carbon Dioxide 26 (21-32) mmol/L Anion Gap 10.0 (3-11) BUN 55 H (7-18) mg/dl Creatinine 6.10 H* D (0.6-1.4) mg/dl Est Cr Clr Drug Dosing 13.2 ml/min Est GFR ( Amer) 9.7 Est GFR (Non-Af Amer) 8.4 BUN/Creatinine Ratio 9.0 L (10-20) Glucose 128 H (70-99) mg/dl POC Glucose 170 H (70-99) mg/dl Calcium 8.3 L (8.5-10.1) mg/dl Phosphorus 6.3 H (2.5-4.9) mg/dl Total Bilirubin 0.3 (0.2-1) mg/dl AST 31 (15-37) U/L ALT 26 (12-78) U/L Alkaline Phosphatase 83 (45-117) U/L Total Creatine Kinase 26 L (39-308) U/L Total Protein 6.1 L (6.4-8.2) gm/dl Albumin 1.8 L (3.4-5.0) gm/dl Globulin 4.3 H (2.5-4.0) gm/dl Albumin/Globulin Ratio 0.4 L (0.9-2) Fluid Creatinine COVID-19 Eval Order SARS-CoV-2, RNA, NAAT (NEGATIVE) 09/06/20 09/05/20 09/05/20 Range/Units 06:46 20:46 17:50 WBC 19.64 H (4.8-10.8) K/uL RBC 3.40 L (4.7-6.1) M/uL Hgb 9.9 L (14.0-18.0) g/dL Hct 32.9 L (42-52) % MCV 96.8 (80-100) fL MCH 29.1 (25-34) pg MCHC 30.1 L (32-36) g/dL RDW Std Deviation 59.1 H (36.4-46.3) fL RDW Coeff of Hilda 17.2 H (11.5-14.5) % Plt Count 357 (130-400) K/uL MPV 8.6 (7.4-10.4) fL Sodium (136-145) mmol/L Potassium (3.5-5.1) mmol/L Chloride (98-107) mmol/L Carbon Dioxide (21-32) mmol/L Anion Gap (3-11) BUN (7-18) mg/dl Creatinine (0.6-1.4) mg/dl Est Cr Clr Drug Dosing ml/min Est GFR ( Amer) Est GFR (Non-Af Amer) BUN/Creatinine Ratio (10-20) Glucose (70-99) mg/dl POC Glucose 180 H 147 H (70-99) mg/dl Calcium (8.5-10.1) mg/dl Phosphorus (2.5-4.9) mg/dl Total Bilirubin (0.2-1) mg/dl AST (15-37) U/L ALT (12-78) U/L Alkaline Phosphatase (45-117) U/L Total Creatine Kinase (39-308) U/L Total Protein (6.4-8.2) gm/dl Albumin (3.4-5.0) gm/dl Globulin (2.5-4.0) gm/dl Albumin/Globulin Ratio (0.9-2) Fluid Creatinine COVID-19 Eval Order SARS-CoV-2, RNA, NAAT (NEGATIVE) 09/05/20 09/05/20 09/05/20 Range/Units 13:43 11:37 11:37 WBC (4.8-10.8) K/uL RBC (4.7-6.1) M/uL Hgb (14.0-18.0) g/dL Hct (42-52) % MCV (80-100) fL MCH (25-34) pg MCHC (32-36) g/dL RDW Std Deviation (36.4-46.3) fL RDW Coeff of Hilda (11.5-14.5) % Plt Count (130-400) K/uL MPV (7.4-10.4) fL Sodium (136-145) mmol/L Potassium (3.5-5.1) mmol/L Chloride (98-107) mmol/L Carbon Dioxide (21-32) mmol/L Anion Gap (3-11) BUN (7-18) mg/dl Creatinine (0.6-1.4) mg/dl Est Cr Clr Drug Dosing ml/min Est GFR ( Amer) Est GFR (Non-Af Amer) BUN/Creatinine Ratio (-20) Glucose (70-99) mg/dl POC Glucose 211 H (70-99) mg/dl Calcium (8.5-10.1) mg/dl Phosphorus (2.5-4.9) mg/dl Total Bilirubin (0.2-1) mg/dl AST (15-37) U/L ALT (12-78) U/L Alkaline Phosphatase (45-117) U/L Total Creatine Kinase (39-308) U/L Total Protein (6.4-8.2) gm/dl Albumin (3.4-5.0) gm/dl Globulin (2.5-4.0) gm/dl Albumin/Globulin Ratio (0.9-2) Fluid Creatinine COVID-19 Eval [facility] SARS-CoV-2, RNA, NAAT NEGATIVE (NEGATIVE) 09/04/20 Range/Units 10:30 WBC (4.8-10.8) K/uL RBC (4.7-6.1) M/uL Hgb (14.0-18.0) g/dL Hct (42-52) % MCV (80-100) fL MCH (25-34) pg MCHC (32-36) g/dL RDW Std Deviation (36.4-46.3) fL RDW Coeff of Hilda (11.5-14.5) % Plt Count (130-400) K/uL MPV (7.4-10.4) fL Sodium (136-145) mmol/L Potassium (3.5-5.1) mmol/L Chloride (98-107) mmol/L Carbon Dioxide (21-32) mmol/L Anion Gap (3-11) BUN (7-18) mg/dl Creatinine (0.6-1.4) mg/dl Est Cr Clr Drug Dosing ml/min Est GFR ( Amer) Est GFR (Non-Af Amer) BUN/Creatinine Ratio (10-20) Glucose (70-99) mg/dl POC Glucose (70-99) mg/dl Calcium (8.5-10.1) mg/dl Phosphorus (2.5-4.9) mg/dl Total Bilirubin (0.2-1) mg/dl AST (15-37) U/L ALT (12-78) U/L Alkaline Phosphatase (45-117) U/L Total Creatine Kinase (39-308) U/L Total Protein (6.4-8.2) gm/dl Albumin (3.4-5.0) gm/dl Globulin (2.5-4.0) gm/dl Albumin/Globulin Ratio (0.9-2) Fluid Creatinine Pending COVID-19 Eval Order SARS-CoV-2, RNA, NAAT (NEGATIVE) Diagnostic Findings CXR IMPRESSION: 1. Cardiomegaly with pulmonary vascular congestion. 2. Moderate to large left pleural effusion with left lung base consolidation appears unchanged. CXR IMPRESSION: Mildly decreased size of the left pleural effusion status post thoracentesis. No postprocedural pneumothorax. CT CHEST w/o IMPRESSION: 1. Small right and moderate to large left pleural effusions. There is mild dependent subsegmental right basilar atelectasis with compressive atelectasis of the left upper lobe and lingula. Near complete consolidation/collapse of the left lower lobe. 2. Emphysema. 3. Small pericardial effusion with new mild stranding within the mediastinal fat and epicardium, likely related to fluid overload. Additionally, there are a few new prominent nonenlarged subcentimeter epicardial lymph nodes present. 4. 5 mm groundglass nodule of the right lung apex. Please refer to below summary of Fleischner criteria recommendations for follow- up of incidental CT nodules (Eusebia Minaya, Guidelines for management of small pulmonary nodules detected on CT scans: A statement from the Fleischner Society, Radiology 237: [phone].) Note: newly detected indeterminate nodule in persons 35 years of age or older. * Low risk patients: minimal or absent history of smoking and/or other known risk factors * high risk patients: history of smoking or of other known risk factors (e.g. first degree relative with lung cancer, or exposure to asbestos, radon, uranium) * if a nodule up to 8 mm is partly solid or is ground glass further follow-up is required after 24 months to exclude possible slow growing adenocarcinoma (JAZZMINE) SUBSOLID NODULES Solitary pure ground-glass nodule * nodule size <6 mm - no CT follow-up required * nodule size >=6 mm - follow-up CT at 6-12 months, then every 2 years until 5 years ECG Additional Comments: EKG Atrial paced with prolonged AV conduction Non-specific intra-ventricular conduction block Abnormal EKG -- electronic atrial pacemaker replaced electronic ventricular pacemaker and ventricular rate has decreased by 83bpm PG Care Time/CCT Total # of Minutes Spent Total Time Spent with Patient: Total time spent is greater than 50% in coordination of care (as documented) at patient's floor/unit and/or counseling patient: Coding Level of Care Code 90570 Subseq Hosp Care Lvl 3 Diagnoses Chest pain R07.9 Candidemia B37.7 Acute respiratory failure with hypoxia J96.01 CKD (chronic kidney disease) N18.9 LLL pneumonia J18.9 Pneumonia type: due to unspecified organism Elevated troponin R77.8 COPD (chronic obstructive pulmonary disease) J44.9 COPD type: unspecified COPD Chronic pancreatitis K86.1 Pancreatitis type: unspecified pancreatitis type Insulin-requiring or dependent type II diabetes mellitus E11.9; Z79.4 Hypothyroidism (acquired) E03.9 Smoker F17.200 Abnormal finding on urinalysis R82.90 Positive blood culture R78.81 History of nephrostomy Hyponatremia E87.1 Constipation K59.00 Hyperphosphatemia E83.39 DVT prophylaxis Z29.9 (1) Chronic pancreatitis Pancreatitis type: unspecified pancreatitis type Qualified Code(s): K86.1 - Other chronic pancreatitis (2) COPD (chronic obstructive pulmonary disease) COPD type: unspecified COPD Qualified Code(s): J44.9 - Chronic obstructive pulmonary disease, unspecified (3) LLL pneumonia Pneumonia type: due to unspecified organism Qualified Code(s): J18.9 - Pneumonia, unspecified organism
--- NOTE | 2020-09-06 10:39 | Pharmacy Report ---
Pharmacy Glycemic Short Note 2 - Date of Service September 06, 2020 - Glycemic Short BSG Results (Last 24 hours): 09/05/20 09/05/20 09/05/20 13:43 17:50 20:46 Glucose POC Glucose 211 H 147 H 180 H 09/06/20 09/06/20 06:46 08:20 Glucose 128 H POC Glucose 170 H ASSESSMENT: 09/06: * Palomo received 19 units of insulin yesterday with adequate glycemic control: * 5 units of basal insulin * 14 units of prandial/correctional insulin * BSGs: 160, 211, 147, 180 * Of note, patient was NPO during this time * Anticipating insulin regimen will need increased for the next 24hrs d/t : * AM Fasting BSG = 170 mg/dL. Lantus will be increased for fasting BSG above goal. * Post prandial BSGs fluctuated yesterday. May need to tighten carb coverage now that diet has been resumed. * Anticipate insulin needs of ~25 units per day (as long as diet ordered and patient remains off steroids) 09/05: * Palomo received 14 units of insulin yesterday (all bolus) which is ~ 65% reduction in total daily dose from the previous day * Of note, Prednisone was discontinued yesterday and patient did not receive any NPH * BSGs were 392-566-55-49 mg/dL * Patient did experience hypoglycemia last evening. His BSG at bedtime was initially 49 mg/dL, and he was disoriented/confused, clammy, and diaphoretic. He was treated with 30 grams of carbohydrates and his BSGs trended down initially: 49-47-45 mg/dL. He was then given another 30 grams of carbohydrates and 25 mLs of D50. His BSGs began trending up: 55-55-99 mg/dL. Of note, he was NPO in the morning for a thoracentesis. * His fasting BSG this AM was 160 mg/dL - slightly above goal but will accept gi kym hypoglycemia last evening. Also, patient is NPO this AM for a ALONDRA. I have already loosened his carbohydrate ratio as the amount of bolus insulin he received with lunch and dinner likely contributed to his hypoglycemia. * Lunchtime BSG was 211 mg/dL. * No change will be made to Novolog parameters at this time 09/04: * Patient received 39 units of insulin yesterday: 21 units of basal + 18 units o f bolus * Prednisone 40 mg daily dose was discontinued, therefore no NPH insulin given today. * Fasting BSG = 100 mg/dl. Patient received 5 units of Lantus last night based on BSG scale. Will continue with this. * Pre-lunch BSG was elevated at 231 mg/dl. Patient was NPO this AM for thoracentesis. Diet re-ordered with lunch. Novolog parameters adequately controlled BSGs yesterday. Will continue with same. PLAN FOR INPATIENT GLYCEMIC CONTROL: * Basal insulin - increased * Lantus 5 units SQ qAM * Lantus 0-10 units SC HS per scale (see eMAR for more details) * Bolus insulin * NovoLog per scale ACHS or Q6hrs while NPO. * Goal Range: Low 110 mg/dL - High 140 mg/dL * Correction Factor: 25 mg/dL/unit * Nutritional / Prandial insulin per carb ratio of 1 unit per 9 grams CHO consumed DISCHARGE RECOMMENDATIONS: * HbA1c = 6.6% from this admission. This demonstrates excellent outpatient control of T2DM and is at goal. * Patient admits to poor appetite, decreased PO intake and weight loss of almost 20 lbs prior to admission. There is concern for hypoglycemia given current outpatient insulin dose. * Recommend: * SMBG at least 2 x per day * Patient should closely follow up with outpatient provider regarding BSGs once discharged to develop a plan in the event that he continues to have poor appetite and decreased PO intake. * Could consider a slight reduction in home insulin dose to ensure patient does not experience hypoglycemia. * Please note that the plan above was derived based on current level of insulin resistance and hospital stress. These recommendations are appropriate for inpatient admission only. Plan of care upon discharge will need to be reassessed to avoid potential outpatient hypo/hyperglycemia. Thank you.
--- NOTE | 2020-09-06 12:50 | Electrocardiogram Report ---
Test Reason : Blood Pressure : / mmHG Vent. Rate : 060 BPM Atrial Rate : 060 BPM P-R Int : 216 ms QRS Dur : 152 ms QT Int : 426 ms P-R-T Axes : -21 105 022 degrees QTc Int : 426 ms Atrial-paced rhythm with prolonged AV conduction Non-specific intra-ventricular conduction block Abnormal ECG When compared with ECG of 25-AUG-2020 08:25, Electronic atrial pacemaker has replaced Electronic ventricular pacemaker Vent. rate has decreased BY 83 BPM Confirmed by Thong Torres ([id number]) on 09/06/2020 12:50:03 PM Referred By: REFERRED SELF Confirmed By:Cash Torres
--- NOTE | 2020-09-06 12:59 | Procedure Note ---
Procedure Note Date of Service September 06, 2020 Procedure: Diagnostic therapeutic ultrasound-guided catheter thoracentesis Finishing Machine Operator: Dr. Luis Roche Indication: Pleural effusion Consent: Signed by patient and verified with timeout prior to procedure Anesthesia: 1% lidocaine without epinephrine local. Procedure: Consent was verified and timeout performed. Appropriate imaging studies were reviewed prior to the procedure. Patient was placed in a seated position and limited thoracic ultrasound was performed of the left chest. See separate imaging. Appropriate site above the diaphragm for thoracentesis was selected. The skin was prepped and draped in normal sterile fashion. Lidocaine was used for local analgesia. Fluid was aspirated via the finder needle. A small skin vianey was made with the scalpel and the catheter over the needle apparatus was advanced over the rib into the pleural space. Using the syringe one-way valve system, a total of 900 mL's of melvin fluid was removed. Procedure was terminated due to resistance. The catheter was removed and observed to be intact. A sterile dressing was applied. Post procedure chest x-ray was ordered. Fluid was sent for labs and differential Complications: None Blood loss: Less than 2 cc Coding CPT Codes Pulmonary/Thoracic - Pulmonary and Thoracic: 34487 Thoracentesis w imaging ([id number]) [facility] [place] Procedure Codes (Charges) Pulmonary/Thoracic Procedure 1: Pulmonary and Thoracic: 72052 Thoracentesis w imaging
--- NOTE | 2020-09-06 13:03 | Pulmonology Progress Note ---
Date of Service September 06, 2020 Assessment & Plan (1) Pleural effusion on left: Chest x-ray 09/03/2020: Personally reviewed: Opacification of the left hemithorax, no mediastinal shift, right costophrenic angle and cardiophrenic angle carotid clean., Dual-lead pacemaker in place. This chest x-ray was compared to the chest x-ray done on 08/25. Patient had left-sided pleural effusion at that time as well --Opacification of the left hemithorax From large complex pleural effusion given fibrillation appreciated in the effusion Status post thoracentesis 09/04/2020, removal of 2.2L dark yellow fluid. Exudative as per lights criteria Repeat thoracentesis 09/06/2020, removal of 900 mL melvin fluid. Pleural fluid:- Protein 3.3, LDH 156, pH 7.64, glucose 108 Serum:- Protein 6, LDH 211 Follow-up culture --> no growth to date Given the history of obstructive kidney failure. Possibility of Urothorax is also there. Follow-up fluid urea If the culture is positive patient might need chest tube placement. --COPD Not on any inhalers at home. Continue with Incruse on a daily basis. Will benefit from PFTs as an outpatient. --Candidemia On caspofungin, recommend following up sensitivities because of increasing resistance Difficult to treat especially given that the patient has pacemaker as well Treatment as per primary team Plan: CT chest without contrast to look at the left thorax. On the ultrasound there are multiple loculations. If there is significant loculation appreciated on the CT chest possibility of chest tube followed by Ms. grullon will be thought of. This was explained to the patient. Please note the above document was generated using voice recognition software. It may contain grammatical, syntax or spelling errors.Any formal questions or concerns about the content, text or information contained within the body of this dictation should be directly addressed to the provider for clarification. (2) COPD (chronic obstructive pulmonary disease): COPD type: unspecified COPD Qualified Code(s): J44.9 - Chronic obstructive pulmonary disease, unspecified (3) Acute respiratory failure with hypoxia: Admission and Anticipated Discharge Date Admission Date: August 25, 2020 Subjective Patient seen and examined at bedside. No acute distress, no adverse events overnight. Denies any chest pain, no headache, no nausea, no vomiting. Fair appetite. Shortness of breath is better after thoracentesis. No fever documented in the chart. No chills Plan is to have another thoracentesis today. Risk and benefit of the procedure explained to the patient. Patient understands and agrees with the plan. Patient had consent signed on 09/04/2020. Review of Systems Review of Systems: All systems reviewed & are unremarkable except as noted in Subjective Physical Exam Physical Exam: Constitutional: No acute distress HEENT: EOMI, PERRLA Respiratory system: Decreased air entry on the left side, positive crackles bilateral lower lobes, no wheeze, no rhonchi CVS: S1-S2 positive Abdomen: Soft, nontender, nondistended, positive bowel sounds x4, obese Extremities: +2 pulses bilaterally radialis/ dorsalis pedis, no cyanosis, +1 edema bilateral lower extremity Neuro: Awake alert oriented x3 Psych: Normal mood and affect G/U: No Tyler Skin: no rashes, warm and dry Lymphatic: no cervical or axillary lymphadenopathy Results & Data Results & Data ([facility]) Vital Signs (Past 12 Hours) Vital Signs Temp Pulse Resp BP Pulse Ox 09/06/20 09:48 37.5 C 60 20 135/49 L 95 09/06/20 08:18 37.7 C H 63 16 152/69 H 90 09/06/20 07:15 61 18 95 09/06/20 06:46 09/06/20 06:46 PG Care Time/CCT Total # of Minutes Spent Total Time Spent with Patient: Total time spent is greater than 50% in coordination of care (as documented) at patient's floor/unit and/or counseling patient: Coding Level of Care Code 84560 Subseq Hosp Care Lvl 3 Diagnoses Pleural effusion on left J90 COPD (chronic obstructive pulmonary disease) J44.9 COPD type: unspecified COPD Acute respiratory failure with hypoxia J96.01
[2020-09-06 13:20] LABS: Appearance Pleural Fluid HAZY; Color Pleural Fluid YELLOW; RBC Pleural Fluid (A) 7000 /uL; Source Pleural Fluid LEFT LUNG; WBC Pleural Fluid (A) 148 /uL
--- NOTE | 2020-09-06 13:39 | XRay Report ---
XR chest 1V portable HISTORY: 74 years-old Male S/P Thoracentesis all of study in a patient with pleural effusion and rec ent thoracentesis COMPARISON: Chest radiograph 09/06/2020 TECHNIQUE: Portable AP view of the chest FINDINGS: Cardiac silhouette is enlarged. Clear right lung. Pulmonary vascular congestion. Left subclavian pace r. Moderate left pleural effusion has decreased in size from comparison. Persistent consolidation to the left lung with mildly improved left lung aeration. No postprocedural pneumothorax. Degenerative c hanges of the shoulders and spine. IMPRESSION: Mildly decreased size of the left pleural effusion status post thoracentesis. No postprocedural pneum othorax. ACT 112: Negative or not required by law. The above report was generated using voice recognition software. It may contain grammatical, syntax o r spelling errors. Electronically signed by: Michael Truong M.D. 09/06/2020 1:37 PM
[2020-09-06 13:46] LABS: Albumin Level 1.7 gm/dl (3.4-5.0); Bilirubin,Total 0.3 mg/dl (0.2-1)
[2020-09-06 13:46] LABS: Total Protein Pleural Fluid 3.2 g/dl
[2020-09-06 14:06] LABS: Basophils, Fluid 0 %; Eosinophils, Fluid 1 %; Lymphocytes, Fluid 27 %; Mono,Macrophage,Mesothelial 56 %; Neutrophils, Fluid 16 %
--- NOTE | 2020-09-06 14:17 | CT Scan Report ---
CT chest wo con CT DOSE: 652.63 mGycm CLINICAL HISTORY: 74 years-old Male with left sided effusion with septations. Acute shortness of rosa ath. Follow-up study in a patient with left pleural effusion. TECHNIQUE: Multiaxial CT images of the chest were performed without contrast. A dose lowering techni que was utilized adhering to the principles of ALARA. COMPARISON: Chest radiograph of same day, chest CT 07/25/2020 FINDINGS: Streak artifact from left subclavian pacer. Moderate cardiomegaly with extensive coronary a rtery calcifications. Moderate calcified plaque of the thoracic aorta without aneurysm. Mild ectasia of the ascending thoracic aorta, 3.9 cm. Mild dilation of the main pulmonary artery, 3.5 cm. Trace pe ricardial effusion. There is mild stranding within the mediastinal fat and epicardium. There are a fe w prominent epicardial lymph nodes measuring up to 9 x 5 mm. Unchanged mild mediastinal adenopathy. Small right and moderate left pleural effusions. No pneumothorax. There are a few fissural nodules of the right midlung measuring up to 7 mm which are likely benign. Mild dependent subsegmental right mikey ng base atelectasis. Dependent consolidation of the left upper lobe and lingula with near complete co nsolidation/collapse of the left lower lobe. No obstructing endobronchial lesion. 6 mm groundglass no dular opacity of the right lung apex on image 38 series 4. Moderate upper lung zone predominant centr ilobular emphysema. Mild tree-in-bud nodules of the right middle lobe. Coarse calcification of the pancreas redemonstrated. Cholelithiasis. Mild generalized body wall edema , greatest within the left lateral chest with gynecomastia. Bones appear intact. No acute fracture or suspicious bone lesion. Cortical lucency of the anterior left fifth rib may be artifactual. IMPRESSION: 1. Small right and moderate to large left pleural effusions. There is mild dependent subsegmental rig ht basilar atelectasis with compressive atelectasis of the left upper lobe and lingula. Near complete consolidation/collapse of the left lower lobe. 2. Emphysema. 3. Small pericardial effusion with new mild stranding within the mediastinal fat and epicardium, like ly related to fluid overload. Additionally, there are a few new prominent nonenlarged subcentimeter e picardial lymph nodes present. 4. 5 mm groundglass nodule of the right lung apex. Please refer to below summary of Fleischner criteria recommendations for follow-up of incidental CT n odules (Eusebia Minaya, Guidelines for management of small pulmonary nodules detected on CT scans: A sta tement from the Fleischner Society, Radiology 237: [phone].) Note: newly detected indeterminate nodule in persons 35 years of age or older. * Low risk patients: minimal or absent history of smoking and/or other known risk factors * high risk patients: history of smoking or of other known risk factors (e.g. first degree relative with lung cancer, or exposure to asbestos, radon, uranium) * if a nodule up to 8 mm is partly solid or is ground glass further follow-up is required after 24 m onths to exclude possible slow growing adenocarcinoma (JAZZMINE) SUBSOLID NODULES Solitary pure ground-glass nodule * nodule size <6 mm - no CT follow-up required * nodule size >=6 mm - follow-up CT at 6-12 months, then every 2 years until 5 years The above report was generated using voice recognition software. It may contain grammatical, syntax o r spelling errors. ACT 112: Negative or not required by law. Electronically signed by: Michael Truong M.D. 09/06/2020 2:16 PM
[2020-09-06] MEDS ORDERED: bisacodyL 10 MG SUPP PR PRN (17:43)
--- NOTE | 2020-09-06 18:26 | Nephrology Progress Note ---
Date of Service September 06, 2020 Assessment & Plan (1) ESRD needing dialysis: HD treatment stopped at 3 hrs, net UF 2 L. Qb adequate. BP slightly low at 97 mmHg systolic. Qb has been at goal. AVG functioning well. Clearance has been adequate. Medications are appropriately dosed for kidney function. Renal MVI daily. Renvela QAC for hyperphosphatemia. (2) Anemia: Venofer completed during recent admission. Epogen provided Q Saturday as inpa tient. (3) Goals of care, counseling/discussion: Discussed with Palomo and his today. Concerns expressed. Overall condition remains guarded. Follow up conversation tomorrow. Appreciate palliative care consultation. Admission and Anticipated Discharge Date Admission Date: August 25, 2020 Subjective Seen and evaluated during hemodialysis. s/p thoracentesis. Palomo is very despondent. Work of breathing was notably increased during HD. Treatment stopped early. No chest pain during my assessment. Chest pain noted earlier during the day. Pacer interrogated. Trop unchanged. EKG stable at that time. Goals of care reviewed with palliative care yesterday. Palomo reaffirmed a desire to go home. He expressed significant reservations regarding potential chest tube placement. I contacted Palomo's (Mikayla Mayes). We discussed his current condition in detail. She expressed concerns. Family believes that Palomo will not be able to return home safely. They have expressed concerns that his time may be limited and are concerned about quality of life. Review of Systems Review of Systems: All systems reviewed & are unremarkable except as noted in HPI & below Constitutional: + fatigue and + weakness; no fever Respiratory: + dyspnea Cardiovascular: + chest pain Physical Exam Constitutional: + ill appearing and + frail appearing; no acute distress Eyes: + anicteric sclerae; no corneal abnormality ENMT: Mouth: + dry oral mucous membranes; no oral mucosal abnormality Neck: normal visual inspection and trachea midline Respiratory: + labored breathing and + tachypneic Auscultation: lungs clear to auscultation bilaterally Cardiovascular: Rate/Rhythm: + tachycardic Heart Sounds: normal S1 and normal S2 Extremities: no edema Musculoskeletal: Extremities: no cyanosis and no clubbing Skin: normal turgor; no lesions Neurologic: Motor/Sensory: no tremor and no asterixis Psychiatric: Orientation: alert and oriented x 3 Results & Data ([facility]) Vital Signs (Past 12 Hours) Vital Signs Temp Pulse Resp BP Pulse Ox 09/06/20 15:01 36.8 C 60 16 159/72 H 96 09/06/20 09:48 37.5 C 60 20 135/49 L 95 09/06/20 08:18 37.7 C H 63 16 152/69 H 90 09/06/20 07:15 61 18 95 Laboratory Results Laboratory Results - last 24 hr 09/04/20 09/05/20 09/06/20 10:30 20:46 06:46 WBC 19.64 H RBC 3.40 L Hgb 9.9 L Hct 32.9 L MCV 96.8 MCH 29.1 MCHC 30.1 L RDW Std Deviation 59.1 H RDW Coeff of Hilda 17.2 H Plt Count 357 MPV 8.6 Sodium Potassium Chloride Carbon Dioxide Anion Gap BUN Creatinine Est Cr Clr Drug Dosing Est GFR ( Amer) Est GFR (Non-Af Amer) BUN/Creatinine Ratio Glucose POC Glucose 180 H Calcium Phosphorus Total Bilirubin AST ALT Alkaline Phosphatase Lactate Dehydrogenase Total Creatine Kinase Troponin I Total Protein Albumin Globulin Albumin/Globulin Ratio Fluid Neutrophils % Fluid Lymphocytes % Fluid Eosinophils % Fluid Basophils % Fluid Meso/Macro/Mitchell % Fluid Creatinine Pending Pleural Fluid Source Pleural Color Pleural Appearance Pleural pH Pleural WBC Pleural RBC Pleural Total Protein Pleural LDH Pleural Glucose Pleural Amylase 09/06/20 09/06/20 09/06/20 06:46 06:46 06:46 WBC RBC Hgb Hct MCV MCH MCHC RDW Std Deviation RDW Coeff of Hilda Plt Count MPV Sodium 137 Potassium 4.9 Chloride 101 Carbon Dioxide 26 Anion Gap 10.0 BUN 55 H Creatinine 6.10 H* D Est Cr Clr Drug Dosing 13.2 Est GFR ( Amer) 9.7 Est GFR (Non-Af Amer) 8.4 BUN/Creatinine Ratio 9.0 L Glucose 128 H POC Glucose Calcium 8.3 L Phosphorus 6.3 H Total Bilirubin 0.3 AST 31 ALT 26 Alkaline Phosphatase 83 Lactate Dehydrogenase Total Creatine Kinase 26 L Troponin I 0.074 H* Total Protein 6.1 L Albumin 1.8 L Globulin 4.3 H Albumin/Globulin Ratio 0.4 L Fluid Neutrophils % Fluid Lymphocytes % Fluid Eosinophils % Fluid Basophils % Fluid Meso/Macro/Mitchell % Fluid Creatinine Pleural Fluid Source Pleural Color Pleural Appearance Pleural pH Pleural WBC Pleural RBC Pleural Total Protein Pleural LDH Pleural Glucose Pleural Amylase 09/06/20 09/06/20 09/06/20 08:20 12:28 12:30 WBC RBC Hgb Hct MCV MCH MCHC RDW Std Deviation RDW Coeff of Hilda Plt Count MPV Sodium Potassium Chloride Carbon Dioxide Anion Gap BUN Creatinine Est Cr Clr Drug Dosing Est GFR ( Amer) Est GFR (Non-Af Amer) BUN/Creatinine Ratio Glucose POC Glucose 170 H 207 H Calcium Phosphorus Total Bilirubin AST ALT Alkaline Phosphatase Lactate Dehydrogenase Total Creatine Kinase Troponin I Total Protein Albumin Globulin Albumin/Globulin Ratio Fluid Neutrophils % Fluid Lymphocytes % Fluid Eosinophils % Fluid Basophils % Fluid Meso/Macro/Mitchell % Fluid Creatinine Pleural Fluid Source Pleural Color Pleural Appearance Pleural pH 7.27 L Pleural WBC Pleural RBC Pleural Total Protein Pleural LDH Pleural Glucose Pleural Amylase 09/06/20 09/06/20 09/06/20 12:30 12:30 12:56 WBC RBC Hgb Hct MCV MCH MCHC RDW Std Deviation RDW Coeff of Hilda Plt Count MPV Sodium Potassium Chloride Carbon Dioxide Anion Gap BUN Creatinine Est Cr Clr Drug Dosing Est GFR ( Amer) Est GFR (Non-Af Amer) BUN/Creatinine Ratio Glucose POC Glucose Calcium Phosphorus Total Bilirubin 0.3 AST ALT Alkaline Phosphatase Lactate Dehydrogenase Total Creatine Kinase Troponin I Total Protein 6.0 L Albumin 1.7 L Globulin Albumin/Globulin Ratio Fluid Neutrophils % 16 Fluid Lymphocytes % 27 Fluid Eosinophils % 1 Fluid Basophils % 0 Fluid Meso/Macro/Mitchell % 56 Fluid Creatinine Pleural Fluid Source LEFT LUNG Pleural Color YELLOW Pleural Appearance HAZY Pleural pH Pleural WBC 148 Pleural RBC 7000 Pleural Total Protein 3.2 Pleural LDH 169 Pleural Glucose 125 Pleural Amylase 15 09/06/20 09/06/20 09/06/20 12:56 17:20 17:48 WBC RBC Hgb Hct MCV MCH MCHC RDW Std Deviation RDW Coeff of Hilda Plt Count MPV Sodium Potassium Chloride Carbon Dioxide Anion Gap BUN Creatinine Est Cr Clr Drug Dosing Est GFR ( Amer) Est GFR (Non-Af Amer) BUN/Creatinine Ratio Glucose POC Glucose 102 H 115 H Calcium Phosphorus Total Bilirubin AST ALT Alkaline Phosphatase Lactate Dehydrogenase 234 Total Creatine Kinase Troponin I Total Protein Albumin Globulin Albumin/Globulin Ratio Fluid Neutrophils % Fluid Lymphocytes % Fluid Eosinophils % Fluid Basophils % Fluid Meso/Macro/Mitchell % Fluid Creatinine Pleural Fluid Source Pleural Color Pleural Appearance Pleural pH Pleural WBC Pleural RBC Pleural Total Protein Pleural LDH Pleural Glucose Pleural Amylase PG Care Time/CCT Total # of Minutes Spent Total Time Spent with Patient: Total time spent is greater than 50% in coordination of care (as documented) at patient's floor/unit and/or counseling patient: Coding Level of Care Code 21694 Subseq Hosp Care Lvl 3 Diagnoses ESRD needing dialysis N18.6; Z99.2 Anemia D64.9 Goals of care, counseling/discussion Z71.89
[2020-09-06] MEDS: DOCUSATE SODIUM 100 MG CAP PO SCH (20:44)
[2020-09-06] MEDS: INSULIN GLARGINE SOLOSTAR 100 UNITS/ML 3 ML PEN SC SCH (20:49)
[2020-09-06] MEDS: ACETAMINOPHEN 325 MG TAB PO PRN (21:03)
[2020-09-07] MEDS ORDERED: NICOTINE 14 MG/24 HR PATCH TD PRN (05:51)
[2020-09-07] MEDS: LEVOTHYROXINE SODIUM 100 MCG TABLET PO SCH (08:04)
[2020-09-07 08:26] LABS: Basophils # (auto) 0.02 K/uL (0-0.2); Basophils % (auto) 0.1 %; Eosinophils # (auto) 0.21 K/uL (0-0.5); Eosinophils % (auto) 1.3 %; Hematocrit (blood only) 31.6 % (42-52); Hemoglobin 9.5 g/dL (14.0-18.0); Immature Granulocytes # (auto) 0.08 K/uL (0.00-0.02); Immature Granulocytes % (auto) 0.5 %; Lymphocytes # (auto) 1.45 K/uL (1.2-3.4); Mean Corpuscular Hemoglobin 29.1 pg (25-34); Mean Corpuscular Hgb Conc 30.1 g/dL (32-36); Mean Corpuscular Volume 96.9 fL (80-100); Mean Platelet Volume 9.1 fL (7.4-10.4); Monocytes # (auto) 0.97 K/uL (0.11-0.59); Neutrophils # (auto) 13.37 K/uL (1.4-6.5); Neutrophils % (auto) 83.1 %; Platelet Count 342 K/uL (130-400); RDW Coefficient of Variation 17.3 % (11.5-14.5); RDW Standard Deviation 60.3 fL (36.4-46.3); Red Blood Count 3.26 M/uL (4.7-6.1)
--- NOTE | 2020-09-07 08:33 | Hospitalist Progress Note ---
Date of Service September 07, 2020 Assessment & Plan (1) Candidemia: * 1 of four blood cultures growing domenico glabrata complex. * ID consulted - recommended echo which was unrevealing for vegetation, recommends ALONDRA * ALONDRA without vegetations noted * Repeat blood cultures until negative-- Repeat blood culture today for temp 38.6C last evening * Pulm recommending sensitivities due to increased resistances. Discussed with lab and they were sent to [facility] on Saturday * Pleural blood urea pending given possibility of urothorax. Also added pleural cr but is a send out as well and will take several days * Patient will need two weeks of caspofungin from last positive blood culture. Last negative culture 09/02 NGTD FINAL (2) Acute respiratory failure with hypoxia: * Complete opacification of the left lung on CXR 09/02 - secondary to larg e complex pleural effusion * Pulm consulted - appreciate assistance Thoracentesis for 2.2L on 09/04 -- EXUDATIVE process. protein 3.3, LDH 156, pH 7.64H, glucose 108. Serum protein 6, LDH 211 * Pleural urea pending given possible urothorax. pleural cr send-out. * Pleural fluid with few WBCs, no organisms seen. No growth to date -- follow * CXR with persistent large LEFT effusion * Thoracentesis 09/06 also exudative in appearance and drained 900cc. (2.2L on 09/04) * Body fluid slide with atypical cells present, cannot exclude malignancy. Cytology pending --> Rare atypical cells present. * Comment: The specimen consists primarily of blood and scattered histiocytes. There are very rare large atypical epithelial cells present. Although rare, these cells are worrisome for a malignant process. If the patient's pleural effusion re-accumulates then additional cytologic evaluation is recommended. Added order for yesterdays fluid if able as none were ordered. If not, could re-send once able to place chest tube if patient willing * 09/06 CT Chest w/o -- small right and moderate to large left pleural effusions. mild dependent subsegmental right basilar atelectasis with compressive atelectasis of the left upper lobe and lingula. Near complete consolidation/collapse of the left lower lobe. Small pericardial effusion with new mild stranding within the mediastinal fat and epicardium, likely related to fluid overload. 5 mm groundglass nodule of the right lung apex. * Discussed results with pulmonary team and they will plan for chest tube placement and possible MIST protocol -- patient declined for today. * Repeat CXR with complete white out of L lower lung, unchanged from yesterday, small R pleural effusion. Cardiomegaly with mild pulm vasc congestion * Will repeat CXR in AM or sooner if symptoms worsen and re-discuss with patient in AM. He would like to hold off for now until Saturday however I did discuss this could cause delay in nephrostomy tube exchange tomorrow until the following week. Understands risks and would like to wait for now. Will make NPO after midnight incase of procedure. Also discussed with Urology team. * Continue to hold heparin in case of chest tube placement * Cough productive of clear sputum per patient, but given continued elevated WBC (trending down) and temp, possible restart tx for abx. *He did also receive 5 days prednisone 40mg. * Consolidative process on repeat CXR likely from compressive atelectasis but will continue to monitor and re-start abx as needed. 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 * Completed 7 days of Zosyn * See above under respiratory failure (5) Elevated troponin: * No angina, did have 2 echos last admission( one that was ALONDRA) with preserved EF, continuing metoprolol. Resumed hydralazine and amlodipine as pressures had been increasing * Trop 0.074 on admission and essentially unchanged x2 after admission * Trop 12/29/19 at 0.094, likely chronically elevated in the setting of CKD IV * Trop unchanged on repeat. EKG unchanged. Pacemaker functioning. Pt also with small pericardial effusion on CT 09/06 (6) COPD (chronic obstructive pulmonary disease): * Home symbicort, Spiriva * No further prednisone -- received 40 mg x 5 days (7) Chronic pancreatitis: * has no complaints of abd pain, will continue creon (8) Insulin-requiring or dependent type II diabetes mellitus: * Pt required iv insulin gtt initially but is now on subq insulin. Managed by pharmacy * A1c 6.6 * Will likely need reduction in insulin at discharge to prevent hypoglycemia but will continue to monitor (9) Hypothyroidism (acquired): * synthroid 88 mcg was recently increased to 100mcg by [facility], however states this was not started yet * Dose adjusted 08/27 * Continue 100mcg daily (10) Smoker: * nicotine patch discontinued (11) Abnormal finding on urinalysis: * 3+ leuk est, neg nitrites, yeast noted * Urine cx mixed skin nu - dc'd dapto (12) Positive blood culture: * As above (13) History of nephrostomy: * Removed 08/04 but with increasing urine drainage. Urology consulted - Does not recommend suturing closed. May upsize his ureteral stent later this week -- planned for SATURDAY with possible biopsy. Will need to be NPO after midnight on Friday 09/07 * Could possibly be delayed if patient's respiratory status not improved/continues to decline chest tube placement for fluid accumulation (14) Hyponatremia: * Resolved. Na 138 (15) Constipation: * Resolved (16) Hyperphosphatemia: * Sevelamer 800mg BID per nephrology. Improved on labs. * Continue to monitor (17) Chest pain: * Reported on morning of 09/06 wax/waning, sharp/stabbing. * Nitropaste * EKG with atrial paced rhythm with prolonged AV conduction, non-specific intraventricular block. Electronic atrial pacemaker has replaced electronic ventricular pacemaker and ventricular rate decreased by 83bpm * Troponin unchanged from 08/25 -- likely related to his CKD as well as pericardial effusion/volume overload * Pain could also be contributed by the fluid and compression of phrenic nerve * Pain improved with nitropaste and will continue to monitor on third floor per patient request at this time * NO CHEST PAIN REPORTED SINCE AM of 09/06 * Continue to monitor (18) DVT prophylaxis: * Heparin sc bid on hold for thoracentesis 09/06 and was held for possible chest tube today however patient declined. Will hold for possible chest tube/nephrostomy tube exchange tomorrow Pt states that the [facility] has been working to get him [facility] for a [facility] for use when away from home PT/OT - recommending rehab but patient is refusing. Family not feeling that they would be able to take him home at this point but will continue to assess progress. Attempting to find some caregivers to come in for a few hours each day Mr. Morales has multiple issues at hand with severe deconditioning and poor nutritional status. His prognosis is poor at this point. Evaluated by palliative care 09/05 -- plans to treat current state and possibly move forward with skilled with transition to hospice at discharge if able Will reach out for further discussion if patient continues to decline interventions Admission and Anticipated Discharge Date Admission Date: August 25, 2020 Subjective Patient evaluated this morning at bedside with brother present. More attentive/alert than in days past and was talking with brother upon entry. He does note that he was able to make urine in first time in quite a while yesterday. Patient feeling quite worn out from all procedures over the past several days and had been seen by pulmonary this morning and declined chest tube at this time. Lengthy discussion was had with patient with brother at bedside regarding accumulation of fluid and CT results as well as repeat CXR this morning and that this accumulation may cause worsening shortness of breath and complete collapse of lung. He states breathing stable compared to last night during dialysis where he became increasingly short of breath and felt like he couldn't get air in and was turned up to 6L NC with improvement but dialysis was cut slightly short. No further episodes of chest pain since yesterday morning. Discussed troponin, EKG and pacemaker interrogation. We also discussed progression of fluid and I personally pulled up his xrays in the room so he understood the severity of current situation. He endorsed thanks as he had never been shown these in the past and that he would be agreeable to chest tube either tomorrow but would rather Saturday if possible to give his body a chance to re-cooperate as he feels quite drained. Discussed that if we do not proceed with chest tube placement that this may delay urology procedure given that they operate on Saturday/. He understands this and we will re-evaluate CXR in morning or sooner if symptoms worsen. Does endorse a cough productive of clear sputum. Denies fever or chills but is noted to have had a temp 38.6C last evening. Cultures remain negative at this time but we will follow these. Did have small bowel movement since our encounter yesterday and feeling less distended. Increased flatus. Eating/drinking better than in days past. Review of Systems Review of Systems: All systems reviewed & are unremarkable except as noted in HPI & below Physical Exam Constitutional: + ill appearing, + obese, + frail appearing and cooperative; no acute distress Eyes: + anicteric sclerae and PERRL Neck: normal visual inspection and trachea midline Respiratory: normal respiratory effort, + cough and able to speak in complete sentences; no labored breathing, does not use accessory muscles and not tachypneic Auscultation: + breath sounds absent (L base), + diminished lung sounds (L posterior/anterior lung braga, R base) and + crackles (R sided, L anterior); no rhonchi and no wheezes on 4L NC Cardiovascular: Rate/Rhythm: regular rate and regular rhythm Extremities: + edema (1+ b/l LE) and + AV fistula (R) Gastrointestinal (Abdomen): Inspection/Auscultation: + abdomen distended, normal bowel sounds and + abdominal edema Percussion/Palpation: abdomen nontender, no guarding and abdomen not rigid Musculoskeletal: Head/Neck/Chest: normocephalic and head atraumatic Neurologic: moves all extremities and awake; not confused Psychiatric: Orientation: alert and oriented x 3 Genitourinary: R nephrostomy site with leak noted on dressing Results & Data Results & Data ([facility]) Vital Signs (Past 12 Hours) Vital Signs Temp Pulse Pulse Resp BP Pulse Ox 09/07/20 07:18 36.6 C 60 16 148/66 H 93 09/06/20 23:00 36.9 C 60 20 132/70 94 09/06/20 21:00 38.6 C H 09/06/20 20:39 68 28 H 149/68 H 93 Laboratory Results 09/07/20 09/07/20 09/07/20 Range/Units 12:26 08:20 07:37 WBC (4.8-10.8) K/uL RBC (4.7-6.1) M/uL Hgb (14.0-18.0) g/dL Hct (42-52) % MCV (80-100) fL MCH (25-34) pg MCHC (32-36) g/dL RDW Std Deviation (36.4-46.3) fL RDW Coeff of Hilda (11.5-14.5) % Plt Count (130-400) K/uL MPV (7.4-10.4) fL Immature Gran % (Auto) % Neut % (Auto) % Lymph % (Auto) % [place] % (Auto) % Eos % (Auto) % Baso % (Auto) % Neut # (Auto) (1.4-6.5) K/uL Lymph # (Auto) (1.2-3.4) K/uL [place] # (Auto) (0.11-0.59) K/uL Eos # (Auto) (0-0.5) K/uL Baso # (Auto) (0-0.2) K/uL Immature Gran # (Auto) (0.00-0.02) K/uL Sodium 138 (136-145) mmol/L Potassium 4.5 (3.5-5.1) mmol/L Chloride 102 (98-107) mmol/L Carbon Dioxide 30 (21-32) mmol/L Anion Gap 6.0 (3-11) BUN 39 H (7-18) mg/dl Creatinine 4.96 H* D (0.6-1.4) mg/dl Est Cr Clr Drug Dosing 16.5 ml/min Est GFR ( Amer) 12.5 Est GFR (Non-Af Amer) 10.8 BUN/Creatinine Ratio 7.9 L (10-20) Glucose 98 (70-99) mg/dl POC Glucose 109 H 131 H (70-99) mg/dl Calcium 8.2 L (8.5-10.1) mg/dl Phosphorus 5.4 H (2.5-4.9) mg/dl Magnesium 2.9 H (1.8-2.4) mg/dl Total Bilirubin 0.2 (0.2-1) mg/dl Direct Bilirubin < 0.1 (0-0.2) mg/dl AST 33 (15-37) U/L ALT 23 (12-78) U/L Alkaline Phosphatase 79 (45-117) U/L Total Protein 5.9 L (6.4-8.2) gm/dl Albumin 1.7 L (3.4-5.0) gm/dl Fluid Creatinine 09/07/20 09/06/20 09/06/20 Range/Units 07:37 23:09 20:48 WBC 16.10 H (4.8-10.8) K/uL RBC 3.26 L (4.7-6.1) M/uL Hgb 9.5 L (14.0-18.0) g/dL Hct 31.6 L (42-52) % MCV 96.9 (80-100) fL MCH 29.1 (25-34) pg MCHC 30.1 L (32-36) g/dL RDW Std Deviation 60.3 H (36.4-46.3) fL RDW Coeff of Hilda 17.3 H (11.5-14.5) % Plt Count 342 (130-400) K/uL MPV 9.1 (7.4-10.4) fL Immature Gran % (Auto) 0.5 % Neut % (Auto) 83.1 % Lymph % (Auto) 9.0 % [place] % (Auto) 6.0 % Eos % (Auto) 1.3 % Baso % (Auto) 0.1 % Neut # (Auto) 13.37 H (1.4-6.5) K/uL Lymph # (Auto) 1.45 (1.2-3.4) K/uL [place] # (Auto) 0.97 H (0.11-0.59) K/uL Eos # (Auto) 0.21 (0-0.5) K/uL Baso # (Auto) 0.02 (0-0.2) K/uL Immature Gran # (Auto) 0.08 H (0.00-0.02) K/uL Sodium (136-145) mmol/L Potassium (3.5-5.1) mmol/L Chloride (98-107) mmol/L Carbon Dioxide (21-32) mmol/L Anion Gap (3-11) BUN (7-18) mg/dl Creatinine (0.6-1.4) mg/dl Est Cr Clr Drug Dosing ml/min Est GFR ( Amer) Est GFR (Non-Af Amer) BUN/Creatinine Ratio (10-20) Glucose (70-99) mg/dl POC Glucose 129 H 143 H (70-99) mg/dl Calcium (8.5-10.1) mg/dl Phosphorus (2.5-4.9) mg/dl Magnesium (1.8-2.4) mg/dl Total Bilirubin (0.2-1) mg/dl Direct Bilirubin (0-0.2) mg/dl AST (15-37) U/L ALT (12-78) U/L Alkaline Phosphatase (45-117) U/L Total Protein (6.4-8.2) gm/dl Albumin (3.4-5.0) gm/dl Fluid Creatinine 09/06/20 09/06/20 09/04/20 Range/Units 17:48 17:20 10:30 WBC (4.8-10.8) K/uL RBC (4.7-6.1) M/uL Hgb (14.0-18.0) g/dL Hct (42-52) % MCV (80-100) fL MCH (25-34) pg MCHC (32-36) g/dL RDW Std Deviation (36.4-46.3) fL RDW Coeff of Hilda (11.5-14.5) % Plt Count (130-400) K/uL MPV (7.4-10.4) fL Immature Gran % (Auto) % Neut % (Auto) % Lymph % (Auto) % [place] % (Auto) % Eos % (Auto) % Baso % (Auto) % Neut # (Auto) (1.4-6.5) K/uL Lymph # (Auto) (1.2-3.4) K/uL [place] # (Auto) (0.11-0.59) K/uL Eos # (Auto) (0-0.5) K/uL Baso # (Auto) (0-0.2) K/uL Immature Gran # (Auto) (0.00-0.02) K/uL Sodium (136-145) mmol/L Potassium (3.5-5.1) mmol/L Chloride (98-107) mmol/L Carbon Dioxide (21-32) mmol/L Anion Gap (3-11) BUN (7-18) mg/dl Creatinine (0.6-1.4) mg/dl Est Cr Clr Drug Dosing ml/min Est GFR ( Amer) Est GFR (Non-Af Amer) BUN/Creatinine Ratio (10-20) Glucose (70-99) mg/dl POC Glucose 115 H 102 H (70-99) mg/dl Calcium (8.5-10.1) mg/dl Phosphorus (2.5-4.9) mg/dl Magnesium (1.8-2.4) mg/dl Total Bilirubin (0.2-1) mg/dl Direct Bilirubin (0-0.2) mg/dl AST (15-37) U/L ALT (12-78) U/L Alkaline Phosphatase (45-117) U/L Total Protein (6.4-8.2) gm/dl Albumin (3.4-5.0) gm/dl Fluid Creatinine Diagnostic Findings CXR IMPRESSION: 1. Layering left pleural effusion with associated consolidation of the left lowe r lung. This is unchanged from yesterday. 2. Small right pleural effusion. 3. Cardiomegaly and cardiac pacemaker. Mild pulmonary vascular congestion persists. PG Care Time/CCT Total # of Minutes Spent Total Time Spent with Patient: Total time spent is greater than 50% in coordination of care (as documented) at patient's floor/unit and/or counseling patient: Coding Level of Care Code 21523 Subseq Hosp Care Lvl 3 Diagnoses Candidemia B37.7 Acute respiratory failure with hypoxia J96.01 CKD (chronic kidney disease) N18.9 LLL pneumonia J18.9 Pneumonia type: due to unspecified organism Elevated troponin R77.8 COPD (chronic obstructive pulmonary disease) J44.9 COPD type: unspecified COPD Chronic pancreatitis K86.1 Pancreatitis type: unspecified pancreatitis type Insulin-requiring or dependent type II diabetes mellitus E11.9; Z79.4 Hypothyroidism (acquired) E03.9 Smoker F17.200 Abnormal finding on urinalysis R82.90 Positive blood culture R78.81 History of nephrostomy Hyponatremia E87.1 Constipation K59.00 Hyperphosphatemia E83.39 Chest pain R07.9 DVT prophylaxis Z29.9 (1) Chronic pancreatitis Pancreatitis type: unspecified pancreatitis type Qualified Code(s): K86.1 - Other chronic pancreatitis (2) COPD (chronic obstructive pulmonary disease) COPD type: unspecified COPD Qualified Code(s): J44.9 - Chronic obstructive pulmonary disease, unspecified (3) LLL pneumonia Pneumonia type: due to unspecified organism Qualified Code(s): J18.9 - Pneumonia, unspecified organism
[2020-09-07] MEDS: TAMSULOSIN HCL 0.4 MG CAP PO SCH (08:51)
[2020-09-07] MEDS: GABAPENTIN 300 MG CAP PO SCH (08:51)
[2020-09-07] MEDS: DOCUSATE SODIUM 100 MG CAP PO SCH ×2 (08:52→20:05)
[2020-09-07] MEDS: NEPHROCAPS PO SCH (08:52)
[2020-09-07] MEDS: UMECLIDINIUM BROMIDE 62.5MCG/BLISTER 7 PUFFS/INHALER INH SCH (08:52)
[2020-09-07] MEDS: PANCREAZE (LIPASE 10,500U) CAP PO SCH ×3 (08:52→17:17)
[2020-09-07] MEDS: INSULIN ASPART 100 UNITS/ML 3 ML PEN SC SCH ×4 (08:53→21:54)
[2020-09-07 08:57] LABS: Alanine Aminotransferase 23 U/L (12-78); Albumin Level 1.7 gm/dl (3.4-5.0); Alkaline Phosphatase 79 U/L (45-117); Aspartate Aminotransferase 33 U/L (15-37); BUN Creatinine Ratio 7.9 (10-20); Bilirubin Direct < 0.1 mg/dl (0-0.2); Bilirubin,Total 0.2 mg/dl (0.2-1); Blood Urea Nitrogen 39 mg/dl (7-18); Calcium 8.2 mg/dl (8.5-10.1); Carbon Dioxide 30 mmol/L (21-32); Chloride 102 mmol/L (98-107); Creatinine Clr Calc Pharmacy 16.5 ml/min; Est GFR (African American) 12.5; Est GFR (Non-African American) 10.8; Glucose 98 mg/dl (70-99); Magnesium 2.9 mg/dl (1.8-2.4); Phosphorus 5.4 mg/dl (2.5-4.9); Potassium 4.5 mmol/L (3.5-5.1); Sodium 138 mmol/L (136-145); Total Protein 5.9 gm/dl (6.4-8.2)
--- NOTE | 2020-09-07 08:58 | XRay Report ---
SINGLE VIEW CHEST CLINICAL HISTORY: Pleural effusions. FINDINGS: An AP, portable, upright chest radiograph is compared to chest x-ray and chest CT dated 09/06/2020. The examination is degraded by portable technique and patient rotation. A 2-lead cardiac pace maker is unchanged in position. The heart is enlarged. Mild pulmonary vascular congestion persists. T here is a moderate layering left pleural effusion with consolidation of the left lower lung. This is unchanged from yesterday. Small pleural effusions seen on the right. No pneumothorax is seen. The ske letal structures are osteopenic. The bony thorax is grossly intact. IMPRESSION: 1. Layering left pleural effusion with associated consolidation of the left lower lung. This is uncha nged from yesterday. 2. Small right pleural effusion. 3. Cardiomegaly and cardiac pacemaker. Mild pulmonary vascular congestion persists. ACT 112: Negative or not required by law. Electronically signed by: Jaquan Damon M.D. 09/07/2020 8:56 AM
--- NOTE | 2020-09-07 09:12 | Pharmacy Report ---
Pharmacy Glycemic Short Note 2 - Date of Service September 07, 2020 - Glycemic Short BSG Results (Last 24 hours): 09/06/20 09/06/20 09/06/20 12:28 17:20 17:48 POC Glucose 207 H 102 H 115 H 09/06/20 09/06/20 09/07/20 20:48 23:09 08:20 POC Glucose 143 H 129 H 131 H ASSESSMENT: 09/07: * Palomo received 21 units of insulin yesterday with adequate glycemic control: * 10 units of basal insulin * 11 units of prandial/correctional insulin * BSGs: 170, 207, 115, 143 * Anticipate no major changes to insulin regime over the next 24 hours: * Fasting BSG of 131 mg/dL is near goal. Continue current Lantus orders. * Post prandial BSGs are acceptable. 09/06: * Palomo received 19 units of insulin yesterday with adequate glycemic control: * 5 units of basal insulin * 14 units of prandial/correctional insulin * BSGs: 160, 211, 147, 180 * Of note, patient was NPO during this time * Anticipating insulin regimen will need increased for the next 24hrs d/t : * AM Fasting BSG = 170 mg/dL. Lantus will be increased for fasting BSG above goal. * Post prandial BSGs fluctuated yesterday. May need to tighten carb coverage now that diet has been resumed. * Anticipate insulin needs of ~25 units per day (as long as diet ordered and patient remains off steroids) 09/05: * Palomo received 14 units of insulin yesterday (all bolus) which is ~ 65% reduction in total daily dose from the previous day * Of note, Prednisone was discontinued yesterday and patient did not receive any NPH * BSGs were 272-509-87-49 mg/dL * Patient did experience hypoglycemia last evening. His BSG at bedtime was initially 49 mg/dL, and he was disoriented/confused, clammy, and diaphoretic. He was treated with 30 grams of carbohydrates and his BSGs trended down initially: 49-47-45 mg/dL. He was then given another 30 grams of carbohydrates and 25 mLs of D50. His BSGs began trending up: 55-55-99 mg/dL. Of note, he was NPO in the morning for a thoracentesis. * His fasting BSG this AM was 160 mg/dL - slightly above goal but will accept given hypoglycemia last evening. Also, patient is NPO this AM for a ALONDRA. I have already loosened his carbohydrate ratio as the amount of bolus insulin he received with lunch and dinner likely contributed to his hypoglycemia. * Lunchtime BSG was 211 mg/dL. * No change will be made to Novolog parameters at this time 09/04: * Patient received 39 units of insulin yesterday: 21 units of basal + 18 units of bolus * Prednisone 40 mg daily dose was discontinued, therefore no NPH insulin given today. * Fasting BSG = 100 mg/dl. Patient received 5 units of Lantus last night based on BSG scale. Will continue with this. * Pre-lunch BSG was elevated at 231 mg/dl. Patient was NPO this AM for thoracentesis. Diet re-ordered with lunch. Novolog parameters adequately controlled BSGs yesterday. Will continue with same. PLAN FOR INPATIENT GLYCEMIC CONTROL: * Basal insulin * Lantus 0-10 units SC BID per scale: * 0 units for BSG < 110 * 5 units for BSG 110-180 * 10 units for BSG > 180 * Bolus insulin * NovoLog per scale ACHS or Q6hrs while NPO. * Goal Range: Low 110 mg/dL - High 140 mg/dL * Correction Factor: 25 mg/dL/unit * Nutritional / Prandial insulin per carb ratio of 1 unit per 9 grams CHO consumed DISCHARGE RECOMMENDATIONS: * HbA1c = 6.6% from this admission. This demonstrates excellent outpatient control of T2DM and is at goal. * Patient admits to poor appetite, decreased PO intake and weight loss of almost 20 lbs prior to admission. There is concern for hypoglycemia given current outpatient insulin dose. * Recommend: * SMBG at least 2 x per day * Patient should closely follow up with outpatient provider regarding BSGs once discharged to develop a plan in the event that he continues to have poor appetite and decreased PO intake. * Could consider a slight reduction in home insulin dose to ensure patient does not experience hypoglycemia. * Please note that the plan above was derived based on current level of insulin resistance and hospital stress. These recommendations are appropriate for inpatient admission only. Plan of care upon discharge will need to be reassessed to avoid potential outpatient hypo/hyperglycemia. Thank you.
[2020-09-07] MEDS: METOPROLOL TARTRATE 25 MG TAB PO SCH ×2 (09:16→20:05)
[2020-09-07] MEDS: amLODIPine BESYLATE 5 MG TAB PO SCH (09:16)
[2020-09-07] MEDS: SEVELAMER HCL 800 MG TABLET PO SCH ×3 (09:16→17:17)
[2020-09-07] MEDS: CASPOFUNGIN 50 MG in SODIUM CHLORIDE 0.9% 250 ML IV SCH (09:17)
[2020-09-07] MEDS: INSULIN GLARGINE SOLOSTAR 100 UNITS/ML 3 ML PEN SC SCH ×2 (09:18→21:53)
[2020-09-07] MEDS: hydrALAZINE 10 MG TAB PO SCH ×2 (09:26→20:05)
--- NOTE | 2020-09-07 12:17 | Urology Progress Note ---
Date of Service September 07, 2020 Assessment & Plan (1) Acute renal failure: 74 yo M with multiple comorbidities admitted for acute respiratory failure secondary to pneumonia. - Case discussed with Dr. Ordonez - He is s/p thoracentesis and hemodialysis yesterday - reports significant fatigue from procedures - Declines additional interventions today including recommended chest tube insertion - Make NPO at midnight for possible intervention, reassess status in AM - If respiratory and overall health status is stable, then plan for ureteral stent exchange and possible bladder biopsy with Dr. Ordonez - He understands that intervention may be delayed if respiratory status not optimized - Will continue to follow while inpatient Admission and Anticipated Discharge Date Admission Date: August 25, 2020 Subjective Pt seen and examined at bedside today. Awake and sitting up in bed, no distress. He is s/p thoracentesis and hemodialysis yesterday. Reports feeling "worn out", did not want any interventions today. He was scheduled for possible chest tube placement, but he declines today. Episode of chest pain yesterday, resolved. EKG unchanged, troponin stable from previous, pacemaker functioning. He feels breathing is about the same. Leaking from right nephrostomy site. Reports voiding small amount from urethra into urinal yesterday. No f/c/n/v. No additional concerns today. Review of Systems Constitutional: as per Subjective / HPI Respiratory: as per Subjective / HPI Cardiovascular: as per Subjective / HPI Gastrointestinal: as per Subjective / HPI Genitourinary: + as per Subjective / HPI Physical Exam Constitutional: chronically ill-appearing, appears fatigued, comfortable, no acute distress Respiratory: able to speak in complete sentences; no respiratory distress, no labored breathing and not tachypneic 3L O2 via NC Cardiovascular: Extremities: + edema (trace bilateral lower extremities) Gastrointestinal (Abdomen): Percussion/Palpation: abdomen soft; abdomen nontender Musculoskeletal: Head/Neck/Chest: normocephalic and head atraumatic Neurologic: moves all extremities and awake Psychiatric: Orientation: alert and oriented x 3 Genitourinary: no CVA tenderness right nephrostomy site dressing intact, minimal drainage Results & Data ([facility]) Vital Signs (Past 12 Hours) Vital Signs Temp Pulse Resp BP Pulse Ox 09/07/20 07:18 36.6 C 60 16 148/66 H 93 PG Care Time/CCT Total # of Minutes Spent Total Time Spent with Patient: Total time spent is greater than 50% in coordination of care (as documented) at patient's floor/unit and/or counseling patient: Coding Level of Care Code 82223 Subseq Hosp Care Lvl 2 Diagnoses Acute renal failure N17.9
--- NOTE | 2020-09-07 14:12 | Pulmonology Progress Note ---
Date of Service September 07, 2020 Assessment & Plan (1) Pleural effusion on left: This is a 74-year-old male admitted to the hospital 08/25/2020 because of shortness of breath. He was negative for coronavirus 2 weeks ago. 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 Consult was placed because of white out of left side of thorax. Patient had thoracentesis performed 09/04/2020 and again on 09/06/2020. Fluid was exudative per laboratory findings. Pathology on first sample from 09/04/2020 consistent with atypical cells. Pathology pending on second sample from 09/06/2020. Recommendations: 1. Opacification of the left hemithorax: Imaging shows fibrillation consistent with loculated effusion. Repeat imaging today shows that fluid is reaccumulating from the thoracentesis completed yesterday. I did discuss chest tube placement with the patient at length and at this time he and his would like to defer until least Saturday unless he becomes in acute distress. He has undergone 2 thoracentesis 09/04/20 with 2.2 L evacuated and again on 09/06/2020 with 900 cc evacuated. Explained possibility of VATs procedure with decortication in the future if not addressed with chest tube. Culture with NGTD. Pathology on first sample with rare atypical cells. Second sample pending for cytology. CT Chest with 5mm nodule in right lung apex. No suggestion for follow up per Fleischner criteria. Given the history of obstructive kidney failure. Possibility of Urothorax is also there. Follow-up fluid urea 2. COPD: Continue with Incruse (AC). Outpatient follow up with pulmonology for PFTs. Emphysema present on CT Chest. 3. Candidemia: Continues on Caspofungin 50 mg IV daily. Managaement per hospitalist team Thank you for including us in the care of this patient. We will continue to follow along with you. Please refer to Dr. Roche's addendum for further recommendations. (2) COPD (chronic obstructive pulmonary disease): COPD type: unspecified COPD Qualified Code(s): J44.9 - Chronic obstructive pulmonary disease, unspecified (3) Acute respiratory failure with hypoxia: Admission and Anticipated Discharge Date Admission Date: August 25, 2020 Supervising Physician Co-Signing Physician Notes I saw and evaluated the patient with Jaquan Holly, and agree with findings and plan as documented in the note. Patient seen and examined at bedside. No acute distress, no adverse events overnight. Patient wants to think about getting possible chest tube placement and. His first thoracentesis showed atypical cells. He had a repeat thoracentesis on 09/06/2020. Cytology was added. We will follow that up. Patient is not in acute distress. Patient has significant fibrin loculations on the ultrasound appreciated. Putting a chest tube in to get the loculation of a possible mass protocol could be thought of. This will be done only if the patient is agreeable. Patient states that he wants to do with possibly on Saturday. Follow-up chest x-rays. Subjective Attending: Dr. Roche Patient seen and examined at bedside. His was present. Patient states that he feels stable from a respiratory standpoint. He is extremely tired. He feels worn out from dialysis and thoracentesis yesterday. He has no pain at the thoracentesis site. He also denies any fever, chills, sweats, rigors. No nausea or vomiting. No diarrhea. He has an occasional cough with production of clear sputum. He denies hemoptysis. He has no other acute complaints at this time. Review of Systems Review of Systems: All systems reviewed & are unremarkable except as noted in Subjective Physical Exam Physical Exam: GENERAL : No acute distress EYES: No icterus, gaze conjugate NOSE: No evidence of epistaxis. Nasal cannula is in place and secure MOUTH: No lesions or candidiasis NECK: Supple LUNGS: Fine crackles at the bases. Decreased breath sounds at the left base. No appreciation of bronchospasm or rhonchi. HEART: Regular, rate controlled with no appreciation of ectopy ABDOMEN: Soft, NT, ND, BS Present EXTREMITIES: No LE edema, pedal pulses intact NEURO: A&OX3 Results & Data Results & Data ([facility]) Vital Signs (Past 12 Hours) Vital Signs Temp Pulse Resp BP Pulse Ox 09/07/20 07:18 36.6 C 60 16 148/66 H 93 Laboratory Results 09/07/20 07:37 09/07/20 07:37 Diagnostic Findings SINGLE VIEW CHEST CLINICAL HISTORY: Pleural effusions. FINDINGS: An AP, portable, upright chest radiograph is compared to chest x-ray and chest CT dated 09/06/2020. The examination is degraded by portable technique and patient rotation. A 2-lead cardiac pacemaker is unchanged in position. The heart is enlarged. Mild pulmonary vascular congestion persists. There is a moderate layering left pleural effusion with consolidation of the left lower lung. This is unchanged from yesterday. Small pleural effusions seen on the right. No pneumothorax is seen. The skeletal structures are osteopenic. The bony thorax is grossly intact. IMPRESSION: 1. Layering left pleural effusion with associated consolidation of the left lower lung. This is unchanged from yesterday. 2. Small right pleural effusion. 3. Cardiomegaly and cardiac pacemaker. Mild pulmonary vascular congestion persis ts. ACT 112: Negative or not required by law. Electronically signed by: Jaquan Damon M.D. 09/07/2020 8:56 AM PG Care Time/CCT Total # of Minutes Spent Total Time Spent with Patient: Total time spent is greater than 50% in coordination of care (as documented) at patient's floor/unit and/or counseling patient: 35 minutes including lengthy discussion with patient and his . Coding Level of Care Code 37416 Subseq Hosp Care Lvl 2 Diagnoses Pleural effusion on left J90 COPD (chronic obstructive pulmonary disease) J44.9 COPD type: unspecified COPD Acute respiratory failure with hypoxia J96.01 Time Spent (min) 35
[2020-09-07] MEDS: CARBOHYDRATES FOR HYPOGLYCEMIA PO PRN ×2 (17:15→17:36)
--- NOTE | 2020-09-07 18:01 | Nephrology Progress Note ---
Date of Service September 07, 2020 Assessment & Plan (1) ESRD needing dialysis: HD TTS. Plan for treatment tomorrow. Clearance has been adequate. Volume status acceptable. Qb has been at goal. AVG functioning well. Medications are appropriately dosed for kidney function. Renal MVI daily. Renvela QAC for hyperphosphatemia. (2) Anemia: Venofer completed during recent admission. Epogen provided Q Saturday as inpatient. (3) Goals of care, counseling/discussion: Discussed with Palomo and his again today. Admission and Anticipated Discharge Date Admission Date: August 25, 2020 Subjective No acute events overnight. Palomo was seen and evaluated this AM with his a t the bedside. I discussed the plan of care with Jaquan Holly Pa-C. Palomo declined chest tube insertion today. He is feeling very weak and tired. He feels that he is breathing relatively comfortably at this time. He denies fevers or chills. His remains very concerned regarding Palomo's overall frail condition. Review of Systems Review of Systems: All systems reviewed & are unremarkable except as noted in HPI & below Physical Exam Constitutional: + frail appearing; no acute distress Eyes: + anicteric sclerae; no corneal abnormality ENMT: Mouth: no oral mucosal abnormality and oral mucous membranes not dry Neck: normal visual inspection and trachea midline Respiratory: normal respiratory effort Auscultation: lungs clear to auscultation bilaterally Cardiovascular: Rate/Rhythm: + bradycardic Heart Sounds: normal S1 and normal S2 Extremities: no edema Musculoskeletal: Extremities: no cyanosis and no clubbing Skin: normal turgor; no lesions Neurologic: Motor/Sensory: no tremor and no asterixis Psychiatric: Orientation: alert and oriented x 3 Results & Data ([facility]) Vital Signs (Past 12 Hours) Vital Signs Temp Pulse Resp BP Pulse Ox 09/07/20 16:34 36.7 C 60 16 123/70 93 09/07/20 07:18 36.6 C 60 16 148/66 H 93 Laboratory Results Laboratory Results - last 24 hr 09/04/20 09/04/20 09/06/20 10:30 10:30 20:48 WBC RBC Hgb Hct MCV MCH MCHC RDW Std Deviation RDW Coeff of Hilda Plt Count MPV Immature Gran % (Auto) Neut % (Auto) Lymph % (Auto) Quay % (Auto) Eos % (Auto) Baso % (Auto) Neut # (Auto) Lymph # (Auto) Quay # (Auto) Eos # (Auto) Baso # (Auto) Immature Gran # (Auto) Sodium Potassium Chloride Carbon Dioxide Anion Gap BUN Creatinine Est Cr Clr Drug Dosing Est GFR ( Amer) Est GFR (Non-Af Amer) BUN/Creatinine Ratio Glucose POC Glucose 143 H Calcium Phosphorus Magnesium Total Bilirubin Direct Bilirubin AST ALT Alkaline Phosphatase Total Protein Albumin Fluid Creatinine Pleural Cholesterol 47 09/06/20 09/07/20 09/07/20 23:09 07:37 07:37 WBC 16.10 H RBC 3.26 L Hgb 9.5 L Hct 31.6 L MCV 96.9 MCH 29.1 MCHC 30.1 L RDW Std Deviation 60.3 H RDW Coeff of Hilda 17.3 H Plt Count 342 MPV 9.1 Immature Gran % (Auto) 0.5 Neut % (Auto) 83.1 Lymph % (Auto) 9.0 Quay % (Auto) 6.0 Eos % (Auto) 1.3 Baso % (Auto) 0.1 Neut # (Auto) 13.37 H Lymph # (Auto) 1.45 Quay # (Auto) 0.97 H Eos # (Auto) 0.21 Baso # (Auto) 0.02 Immature Gran # (Auto) 0.08 H Sodium 138 Potassium 4.5 Chloride 102 Carbon Dioxide 30 Anion Gap 6.0 BUN 39 H Creatinine 4.96 H* D Est Cr Clr Drug Dosing 16.5 Est GFR ( Amer) 12.5 Est GFR (Non-Af Amer) 10.8 BUN/Creatinine Ratio 7.9 L Glucose 98 POC Glucose 129 H Calcium 8.2 L Phosphorus 5.4 H Magnesium 2.9 H Total Bilirubin 0.2 Direct Bilirubin < 0.1 AST 33 ALT 23 Alkaline Phosphatase 79 Total Protein 5.9 L Albumin 1.7 L Fluid Creatinine Pleural Cholesterol 09/07/20 09/07/20 09/07/20 08:20 12:26 17:12 WBC RBC Hgb Hct MCV MCH MCHC RDW Std Deviation RDW Coeff of Hilda Plt Count MPV Immature Gran % (Auto) Neut % (Auto) Lymph % (Auto) Quay % (Auto) Eos % (Auto) Baso % (Auto) Neut # (Auto) Lymph # (Auto) Quay # (Auto) Eos # (Auto) Baso # (Auto) Immature Gran # (Auto) Sodium Potassium Chloride Carbon Dioxide Anion Gap BUN Creatinine Est Cr Clr Drug Dosing Est GFR ( Amer) Est GFR (Non-Af Amer) BUN/Creatinine Ratio Glucose POC Glucose 131 H 109 H 48 L* Calcium Phosphorus Magnesium Total Bilirubin Direct Bilirubin AST ALT Alkaline Phosphatase Total Protein Albumin Fluid Creatinine Pleural Cholesterol 09/07/20 09/07/20 09/07/20 17:14 17:32 17:55 WBC RBC Hgb Hct MCV MCH MCHC RDW Std Deviation RDW Coeff of Hilda Plt Count MPV Immature Gran % (Auto) Neut % (Auto) Lymph % (Auto) Quay % (Auto) Eos % (Auto) Baso % (Auto) Neut # (Auto) Lymph # (Auto) Quay # (Auto) Eos # (Auto) Baso # (Auto) Immature Gran # (Auto) Sodium Potassium Chloride Carbon Dioxide Anion Gap BUN Creatinine Est Cr Clr Drug Dosing Est GFR ( Amer) Est GFR (Non-Af Amer) BUN/Creatinine Ratio Glucose POC Glucose 51 L* 54 L* 72 Calcium Phosphorus Magnesium Total Bilirubin Direct Bilirubin AST ALT Alkaline Phosphatase Total Protein Albumin Fluid Creatinine Pleural Cholesterol PG Care Time/CCT Total # of Minutes Spent Total Time Spent with Patient: Total time spent is greater than 50% in coordination of care (as documented) at patient's floor/unit and/or counseling patient: Coding Level of Care Code 49274 Subseq Hosp Care Lvl 3 Diagnoses ESRD needing dialysis N18.6; Z99.2 Anemia D64.9 Goals of care, counseling/discussion Z71.89
[2020-09-07] MEDS ORDERED: MELATONIN 3 MG TAB PO ONE (23:12)
[2020-09-08] MEDS: ACETAMINOPHEN 325 MG TAB PO PRN (01:07)
[2020-09-08] MEDS ORDERED: Nursing to Pharmacy Communication SCH (03:30)
[2020-09-08] MEDS: LEVOTHYROXINE SODIUM 100 MCG TABLET PO SCH (05:42)
[2020-09-08] MEDS: INSULIN ASPART 100 UNITS/ML 3 ML PEN SC SCH ×3 (05:50→18:08)
[2020-09-08 07:08] LABS: Basophils # (auto) 0.01 K/uL (0-0.2); Basophils % (auto) 0.1 %; Eosinophils # (auto) 0.16 K/uL (0-0.5); Eosinophils % (auto) 1.2 %; Hematocrit (blood only) 29.5 % (42-52); Immature Granulocytes # (auto) 0.06 K/uL (0.00-0.02); Immature Granulocytes % (auto) 0.4 %; Lymphocytes # (auto) 1.27 K/uL (1.2-3.4); Lymphocytes % (auto) 9.3 %; Mean Corpuscular Hemoglobin 29.2 pg (25-34); Mean Corpuscular Hgb Conc 30.5 g/dL (32-36); Mean Corpuscular Volume 95.8 fL (80-100); Mean Platelet Volume 9.1 fL (7.4-10.4); Monocytes # (auto) 0.86 K/uL (0.11-0.59); Monocytes % (auto) 6.3 %; Neutrophils # (auto) 11.34 K/uL (1.4-6.5); Neutrophils % (auto) 82.7 %; Platelet Count 340 K/uL (130-400); RDW Coefficient of Variation 17.1 % (11.5-14.5); RDW Standard Deviation 58.4 fL (36.4-46.3); Red Blood Count 3.08 M/uL (4.7-6.1)
[2020-09-08 07:57] LABS: Albumin Globulin Ratio 0.3 (0.9-2); Albumin Level 1.5 gm/dl (3.4-5.0); BUN Creatinine Ratio 8.8 (10-20); Bilirubin,Total 0.2 mg/dl (0.2-1); Calcium 8.1 mg/dl (8.5-10.1); Creatinine Clr Calc Pharmacy 14.3 ml/min; Est GFR (African American) 10.6; Est GFR (Non-African American) 9.1; Globulin 4.4 gm/dl (2.5-4.0); Phosphorus 6.1 mg/dl (2.5-4.9); Potassium 4.7 mmol/L (3.5-5.1); Total Protein 5.9 gm/dl (6.4-8.2)
[2020-09-08] MEDS: INSULIN GLARGINE SOLOSTAR 100 UNITS/ML 3 ML PEN SC SCH ×2 (08:00→21:45)
[2020-09-08] MEDS: DOCUSATE SODIUM 100 MG CAP PO SCH ×2 (08:02→21:33)
[2020-09-08] MEDS: SEVELAMER HCL 800 MG TABLET PO SCH ×3 (08:02→17:17)
[2020-09-08] MEDS: hydrALAZINE 10 MG TAB PO SCH ×2 (08:02→21:32)
[2020-09-08] MEDS: PANCREAZE (LIPASE 10,500U) CAP PO SCH ×3 (08:02→17:17)
[2020-09-08] MEDS: METOPROLOL TARTRATE 25 MG TAB PO SCH ×2 (08:03→21:33)
--- NOTE | 2020-09-08 09:00 | XRay Report ---
XR chest 1V portable HISTORY: Shortness of breath. COMPARISON: Chest 09/07/2020. FINDINGS: No pneumothorax. Moderate to large left pleural effusion persists. The heart remains enlarg ed. Left-sided dual-chamber pacemaker. There is diffuse interstitial thickening most pronounced withi n the left upper lobe. There is also left basilar consolidation. This remains unchanged. IMPRESSION: 1. No change in the moderate to large left pleural effusion and left basilar densities. 2. Diffuse interstitial thickening persists and favors mild interstitial pulmonary edema. ACT 112: Negative or not required by law. Electronically signed by: Joseph Boston M.D. 09/08/2020 8:59 AM
--- NOTE | 2020-09-08 09:35 | Hospitalist Progress Note ---
Date of Service September 08, 2020 Assessment & Plan (1) Candidemia: * 1 of four blood cultures growing domenico glabrata complex. * ID consulted - ALONDRA without vegetations noted * Repeat blood cultures 09/07 * Pulm recommending sensitivities due to increased resistances. Discussed with lab and they were sent to [facility] 09/05 * Pleural blood urea pending given possibility of urothorax. Also added pleural cr but is a send out as well and will take several days * Patient will need two weeks of caspofungin from last positive blood culture. Last negative culture 09/02 NGTD FINAL (2) Acute respiratory failure with hypoxia: * Complete opacification of the left lung on CXR 09/02 - secondary to large complex pleural effusion * Pulm consulted - appreciate assistance Thoracentesis for 2.2L on 09/04 -- EXUDATIVE process. protein 3.3, LDH 156, pH 7.64H, glucose 108. Serum protein 6, LDH 211 * Pleural urea pending given possible urothorax. pleural cr send-out. * Pleural fluid with few WBCs, no organisms seen. No growth to date -- follow * CXR with persistent large LEFT effusion * Thoracentesis 09/06 also exudative in appearance and drained 900cc. (2.2L on 09/04) * Body fluid slide with atypical cells present, cannot exclude malignancy. Cytology pending --> Rare atypical cells present. * Comment: The specimen consists primarily of blood and scattered histiocytes. There are very rare large atypical epithelial cells present. Although rare, these cells are worrisome for a malignant process. * 09/06 CT Chest w/o -- small right and moderate to large left pleural effusions. mild dependent subsegmental right basilar atelectasis with compressive atelectasis of the left upper lobe and lingula. Near complete consolidation/collapse of the left lower lobe. Small pericardial effusion with new mild stranding within the mediastinal fat and epicardium, likely related to fluid overload. 5 mm groundglass nodule of the right lung apex. * Discussed results with pulmonary team and they will plan for chest tube pl acement and possible MIST protocol -- patient declined 09/07 * Repeat CXR with complete white out of L lower lung, unchanged from yesterday, small R pleural effusion. Cardiomegaly with mild pulm vasc congestion * Will repeat CXR in AM or sooner if symptoms worsen and re-discuss with patient in AM. He would like to hold off for now until Saturday however I did discuss this could cause delay in nephrostomy tube exchange tomorrow until the following week. Understands risks and would like to wait for now. Will make NPO after midnight incase of procedure. Also discussed with Urology team. 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 * Completed 7 days of Zosyn * See above under respiratory failure (5) Elevated troponin: * No angina, did have 2 echos last admission( one that was ALONDRA) with preserved EF, continuing metoprolol. Resumed hydralazine and amlodipine as pressures had been increasing * Trop 0.074 on admission and essentially unchanged x2 after admission * Trop 12/29/19 at 0.094, likely chronically elevated in the setting of CKD IV * Trop unchanged on repeat. EKG unchanged. Pacemaker functioning. Pt also with small pericardial effusion on CT 09/06 (6) COPD (chronic obstructive pulmonary disease): * Home symbicort, Spiriva * No further prednisone -- received 40 mg x 5 days (7) Chronic pancreatitis: * has no complaints of abd pain, will continue creon (8) Insulin-requiring or dependent type II diabetes mellitus: * Pt required iv insulin gtt initially but is now on subq insulin. Managed by pharmacy * A1c 6.6 * Will likely need reduction in insulin at discharge to prevent hypoglycemia but will continue to monitor (9) Hypothyroidism (acquired): * synthroid 88 mcg was recently increased to 100mcg by [facility], however states this was not started yet * Dose adjusted 08/27 * Continue 100mcg daily (10) Smoker: * nicotine patch discontinued (11) Abnormal finding on urinalysis: * 3+ leuk est, neg nitrites, yeast noted * Urine cx mixed skin nu - dc'd dapto (12) Positive blood culture: * As above (13) History of nephrostomy: * Removed 08/04 but with increasing urine drainage. Urology consulted - Does not recommend suturing closed. May upsize his ureteral stent later this week -- planned for SATURDAY with possible biopsy. Will need to be NPO after midnight on Friday 09/07 * Could possibly be delayed if patient's respiratory status not improved/con tinues to decline chest tube placement for fluid accumulation (14) Hyponatremia: * Resolved. Na 138 (15) Constipation: * Resolved (16) Hyperphosphatemia: * Sevelamer 800mg BID per nephrology. Improved on labs. * Continue to monitor (17) Chest pain: * Reported on morning of 09/06 wax/waning, sharp/stabbing. * Nitropaste * EKG with atrial paced rhythm with prolonged AV conduction, non-specific intraventricular block. Electronic atrial pacemaker has replaced electronic ventricular pacemaker and ventricular rate decreased by 83bpm * Troponin unchanged from 08/25 -- likely related to his CKD as well as pericardial effusion/volume overload * Pain could also be contributed by the fluid and compression of phrenic nerve * Pain improved with nitropaste and will continue to monitor on third floor per patient request at this time * NO CHEST PAIN REPORTED SINCE AM of 09/06 * Continue to monitor (18) DVT prophylaxis: * Heparin sc bid on hold for thoracentesis 09/06 and was held for possible chest tube today however patient declined. Will hold for possible chest tube/nephrostomy tube exchange tomorrow Pt states that the [facility] has been working to get him approved for a [facility] for use when away from home PT/OT - recommending rehab but patient is refusing. Family not feeling that they would be able to take him home at this point but will continue to assess progress. Attempting to find some caregivers to come in for a few hours each day Mr. Morales has multiple issues at hand with severe deconditioning and poor nutritional status. His prognosis is poor at this point. Evaluated by palliative care 09/05 -- plans to treat current state and possibly move forward with skilled with transition to hospice at discharge if able Will reach out for further discussion if patient continues to decline interventions Admission and Anticipated Discharge Date Admission Date: August 25, 2020 Subjective pt is withdrawn and has many questions, overall he states he is not ready to and wishes to at least pursue the urology recommended stent and the possible chest tube. overall is weak and tired and his is a big proponent for his decision to push forward Review of Systems Review of Systems: Moderate distress and fatigue no headache, blurry or double vision no speech or swallowing issues no chest pain, pressure or palpitations shortness of breath at rest no abdominal pain, nausea or vomiting, diarrhea or constipation no focal joint pain does have lower extremity swelling lower back pain, no radicular pain no bruising, bleeding or rashes no focal signs of weakness or numbness or altered sensation no complaints of anxiety or depression. Physical Exam Physical Exam: The patient appeared chronically ill and in moderate distress Vital signs as documented. Soon his blood pressure slightly low he is tachypneic Head exam is normocephalic atraumatic no scleral icterus Neck trachea is midline Lungs are overall diminished breath sounds no focal loss no wheezes no particularly prolonged expiratory phase Cardiac exam, Rhythm is regular.. No murmurs, rubs or gallops. Abdominal exam reveals normal bowel sounds, soft slightly distended Extremities are trace edema if anything he has a raise on his left leg from foot drop which is pre-existing condition Neurologic exam is alert and oriented, no focal loss of strength or sensation session of left foot drop Skin is without bruises or rashes Psychologically is without concerns for anxiety or depression. Results & Data Results & Data ([facility]) Vital Signs (Past 12 Hours) Vital Signs Temp Pulse Pulse Resp BP Pulse Ox 09/08/20 07:48 98.4 F 60 18 134/86 94 09/07/20 22:53 99.7 F H 65 16 145/78 H 91 PG Care Time/CCT Total # of Minutes Spent Total Time Spent with Patient: Total time spent is greater than 50% in coordination of care (as documented) at patient's floor/unit and/or counseling patient: Coding Level of Care Code 83846 Subseq Hosp Care Lvl 3 Diagnoses Candidemia B37.7 Acute respiratory failure with hypoxia J96.01 CKD (chronic kidney disease) N18.9 LLL pneumonia J18.9 Pneumonia type: due to unspecified organism Elevated troponin R77.8 COPD (chronic obstructive pulmonary disease) J44.9 COPD type: unspecified COPD Chronic pancreatitis K86.1 Pancreatitis type: unspecified pancreatitis type Insulin-requiring or dependent type II diabetes mellitus E11.9; Z79.4 Hypothyroidism (acquired) E03.9 Smoker F17.200 Abnormal finding on urinalysis R82.90 Positive blood culture R78.81 History of nephrostomy Hyponatremia E87.1 Constipation K59.00 Hyperphosphatemia E83.39 Chest pain R07.9 DVT prophylaxis Z29.9 (1) Chronic pancreatitis Pancreatitis type: unspecified pancreatitis type Qualified Code(s): K86.1 - Other chronic pancreatitis (2) COPD (chronic obstructive pulmonary disease) COPD type: unspecified COPD Qualified Code(s): J44.9 - Chronic obstructive pu lmonary disease, unspecified (3) LLL pneumonia Pneumonia type: due to unspecified organism Qualified Code(s): J18.9 - Pneumonia, unspecified organism
--- NOTE | 2020-09-08 11:56 | Nephrology Progress Note ---
Date of Service September 08, 2020 Assessment & Plan (1) ESRD needing dialysis: HD TTS. Qb has been at goal. AVG functioning well. Orders reviewed with HD nurse. Tolerating treatment well. UF goal 2 L. Medications are appropriately dosed for kidney function. Renal MVI daily. Renvela QAC for hyperphosphatemia. PO4 slightly elevated but acceptable. will monitor. (2) Anemia: Venofer completed during recent admission. Epogen provided Q Saturday as inpatient. Hgb stable. (3) Goals of care, counseling/discussion: Ongoing conversation. Admission and Anticipated Discharge Date Admission Date: August 25, 2020 Subjective No acute events overnight. Palomo was seen and evaluated during hemodialysis this morning. Tolerating treatment. Review of Systems Review of Systems: All systems reviewed & are unremarkable except as noted in HPI & below Physical Exam Constitutional: + frail appearing; no acute distress Eyes: + anicteric sclerae; no corneal abnormality ENMT: Mouth: no oral mucosal abnormality and oral mucous membranes not dry Neck: normal visual inspection and trachea midline Respiratory: normal respiratory effort Auscultation: lungs clear to auscultation bilaterally Cardiovascular: Rate/Rhythm: regular rate Heart Sounds: normal S1 and normal S2 Extremities: no edema Musculoskeletal: Extremities: no cyanosis and no clubbing Skin: normal turgor; no lesions Neurologic: Motor/Sensory: no tremor and no asterixis Psychiatric: Orientation: alert and oriented x 3 Results & Data ([facility]) Vital Signs (Past 12 Hours) Vital Signs Temp Pulse Pulse Pulse Resp BP BP 09/08/20 11:40 60 122/58 L 09/08/20 11:20 60 127/61 09/08/20 11:00 60 125/64 09/08/20 10:40 60 124/63 09/08/20 10:20 60 140/68 09/08/20 10:09 60 139/67 09/08/20 09:59 36.9 C 66 09/08/20 07:48 36.9 C 60 18 134/86 Pulse Ox 09/08/20 11:40 09/08/20 11:20 09/08/20 11:00 09/08/20 10:40 09/08/20 10:20 09/08/20 10:09 09/08/20 09:59 09/08/20 07:48 94 Laboratory Results Laboratory Results - last 24 hr 09/04/20 09/04/20 09/07/20 10:30 10:30 17:12 WBC RBC Hgb Hct MCV MCH MCHC RDW Std Deviation RDW Coeff of Hilda Plt Count MPV Immature Gran % (Auto) Neut % (Auto) Lymph % (Auto) [place] % (Auto) Eos % (Auto) Baso % (Auto) Neut # (Auto) Lymph # (Auto) [place] # (Auto) Eos # (Auto) Baso # (Auto) Immature Gran # (Auto) Sodium Potassium Chloride Carbon Dioxide Anion Gap BUN Creatinine Est Cr Clr Drug Dosing Est GFR ( Amer) Est GFR (Non-Af Amer) BUN/Creatinine Ratio Glucose POC Glucose 48 L* Calcium Phosphorus Total Bilirubin AST ALT Alkaline Phosphatase Total Protein Albumin Globulin Albumin/Globulin Ratio Fluid Urea Nitrogen Src PLEURAL Fluid Urea Nitrogen 29 Pleural Cholesterol 47 09/07/20 09/07/20 09/07/20 17:14 17:32 17:55 WBC RBC Hgb Hct MCV MCH MCHC RDW Std Deviation RDW Coeff of Hilda Plt Count MPV Immature Gran % (Auto) Neut % (Auto) Lymph % (Auto) [place] % (Auto) Eos % (Auto) Baso % (Auto) Neut # (Auto) Lymph # (Auto) [place] # (Auto) Eos # (Auto) Baso # (Auto) Immature Gran # (Auto) Sodium Potassium Chloride Carbon Dioxide Anion Gap BUN Creatinine Est Cr Clr Drug Dosing Est GFR ( Amer) Est GFR (Non-Af Amer) BUN/Creatinine Ratio Glucose POC Glucose 51 L* 54 L* 72 Calcium Phosphorus Total Bilirubin AST ALT Alkaline Phosphatase Total Protein Albumin Globulin Albumin/Globulin Ratio Fluid Urea Nitrogen Src Fluid Urea Nitrogen Pleural Cholesterol 09/07/20 09/08/20 09/08/20 20:09 05:49 06:02 WBC 13.70 H RBC 3.08 L Hgb 9.0 L Hct 29.5 L MCV 95.8 MCH 29.2 MCHC 30.5 L RDW Std Deviation 58.4 H RDW Coeff of Hilda 17.1 H Plt Count 340 MPV 9.1 Immature Gran % (Auto) 0.4 Neut % (Auto) 82.7 Lymph % (Auto) 9.3 [place] % (Auto) 6.3 Eos % (Auto) 1.2 Baso % (Auto) 0.1 Neut # (Auto) 11.34 H Lymph # (Auto) 1.27 [place] # (Auto) 0.86 H Eos # (Auto) 0.16 Baso # (Auto) 0.01 Immature Gran # (Auto) 0.06 H Sodium Potassium Chloride Carbon Dioxide Anion Gap BUN Creatinine Est Cr Clr Drug Dosing Est GFR ( Amer) Est GFR (Non-Af Amer) BUN/Creatinine Ratio Glucose POC Glucose 102 H 148 H Calcium Phosphorus Total Bilirubin AST ALT Alkaline Phosphatase Total Protein Albumin Globulin Albumin/Globulin Ratio Fluid Urea Nitrogen Src Fluid Urea Nitrogen Pleural Cholesterol 09/08/20 09/08/20 06:02 12:10 WBC RBC Hgb Hct MCV MCH MCHC RDW Std Deviation RDW Coeff of Hilda Plt Count MPV Immature Gran % (Auto) Neut % (Auto) Lymph % (Auto) [place] % (Auto) Eos % (Auto) Baso % (Auto) Neut # (Auto) Lymph # (Auto) [place] # (Auto) Eos # (Auto) Baso # (Auto) Immature Gran # (Auto) Sodium 135 L Potassium 4.7 Chloride 100 Carbon Dioxide 25 Anion Gap 10.0 BUN 50 H Creatinine 5.70 H* D Est Cr Clr Drug Dosing 14.3 Est GFR ( Amer) 10.6 Est GFR (Non-Af Amer) 9.1 BUN/Creatinine Ratio 8.8 L Glucose 144 H POC Glucose 114 H Calcium 8.1 L Phosphorus 6.1 H Total Bilirubin 0.2 AST 37 ALT 24 Alkaline Phosphatase 90 Total Protein 5.9 L Albumin 1.5 L Globulin 4.4 H Albumin/Globulin Ratio 0.3 L Fluid Urea Nitrogen Src Fluid Urea Nitrogen Pleural Cholesterol PG Care Time/CCT Total # of Minutes Spent Total Time Spent with Patient: Total time spent is greater than 50% in coordination of care (as documented) at patient's floor/unit and/or counseling patient: Coding Level of Care Code 40885 Subseq Hosp Care Lvl 3 Diagnoses ESRD needing dialysis N18.6; Z99.2 Anemia D64.9 Goals of care, counseling/discussion Z71.89
--- NOTE | 2020-09-08 12:57 | Pulmonology Progress Note ---
Date of Service September 08, 2020 Assessment & Plan (1) Pleural effusion on left: This is a 74-year-old male admitted to the hospital 08/25/2020 because of shortness of breath. He was negative for coronavirus 2 weeks ago. 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 Consult was placed because of white out of left side of thorax. Patient had thoracentesis performed 09/04/2020 and again on 09/06/2020. Fluid was exudative per laboratory findings. Pathology on first sample from 09/04/2020 consistent with atypical cells. Pathology pending on second sample from 09/06/2020. --Opacification of the left hemithorax From large complex pleural effusion given fibrillation appreciated in the effusion Status post thoracentesis 09/04/2020, removal of 2.2L dark yellow fluid. Exudative as per lights criteria Repeat thoracentesis 09/06/2020, removal of 900 mL melvin fluid. Again exudative, pH of 7.27 09/05/2020 Pleural fluid:- Protein 3.3, LDH 156, pH 7.64, glucose 108 09/05/2020 Serum:- Protein 6, LDH 211 09/06/2020: Protein 3.2, LDH 169, glucose 125, pH 7.27 09/06/2020: Protein 6.1, LDH 234 Follow-up culture --> no growth to date Given the history of obstructive kidney failure. Possibility of Urothorax is also there. Follow-up fluid urea Cytology from 09/05/2020 is positive for atypical cells. Follow repeat cytology which was done on 09/06/2020. --COPD Not on any inhalers at home. Continue with Incruse on a daily basis. Will benefit from PFTs as an outpatient. --Candidemia On caspofungin, recommend following up sensitivities because of increasing resistance Difficult to treat especially given that the patient has pacemaker as well Treatment as per primary team Plan: Patient is willing to have the chest tube placement done tomorrow. Hold heparin tomorrow. Risk and benefit of the procedure explained to the patient and he is willing to go ahead with the procedure. Please note the above document was generated using voice recognition software. It may contain grammatical, syntax or spelling errors.Any formal questions or concerns about the content, text or information contained within the body of this dictation should be directly addressed to the provider for clarification. (2) COPD (chronic obstructive pulmonary disease): COPD type: unspecified COPD Qualified Code(s): J44.9 - Chronic obstructive pulmonary disease, unspecified (3) Acute respiratory failure with hypoxia: Admission and Anticipated Discharge Date Admission Date: August 25, 2020 Subjective Patient seen and examined at bedside. No acute distress, no adverse events overnight. Patient's was at bedside at the time of examination. He was getting dialyzed as well at the same time. Shortness of breath is the same. Denies any chest pain. Did complain of some abdominal discomfort in the morning which is resolved. Positive bowel movements No headache, no dizziness no nausea or vomiting. Review of Systems Review of Systems: All systems reviewed & are unremarkable except as noted in Subjective Physical Exam Physical Exam: Constitutional: No acute distress HEENT: EOMI, PERRLA Respiratory system: Decreased air entry on the left side, positive crackles bilateral lower lobes, no wheeze, no rhonchi CVS: S1-S2 positive Abdomen: Soft, nontender, nondistended, positive bowel sounds x4, obese Extremities: +2 pulses bilaterally radialis/ dorsalis pedis, no cyanosis, +1 edema bilateral lower extremity, right arm aVF Neuro: Awake alert oriented x3 Psych: Normal mood and affect G/U: No [place] Skin: no rashes, warm and dry Lymphatic: no cervical or axillary lymphadenopathy Results & Data Results & Data ([facility]) Vital Signs (Past 12 Hours) Vital Signs Temp Pulse Pulse Pulse Resp BP BP 09/08/20 12:40 65 94/59 L 09/08/20 12:20 63 113/58 L 09/08/20 12:00 60 138/63 09/08/20 06:02 09/08/20 06:02 09/08/20 11:40 60 122/58 L 09/08/20 11:20 60 127/61 09/08/20 11:00 60 125/64 09/08/20 10:40 60 124/63 09/08/20 10:20 60 140/68 09/08/20 10:09 60 139/67 09/08/20 09:59 36.9 C 66 09/08/20 07:48 36.9 C 60 18 134/86 Pulse Ox 09/08/20 12:40 09/08/20 12:20 09/08/20 12:00 09/08/20 11:40 09/08/20 11:20 09/08/20 11:00 09/08/20 10:40 09/08/20 10:20 09/08/20 10:09 09/08/20 09:59 09/08/20 07:48 94 PG Care Time/CCT Total # of Minutes Spent Total Time Spent with Patient: Total time spent is greater than 50% in coordination of care (as documented) at patient's floor/unit and/or counseling patient: Coding Level of Care Code 98816 Subseq Hosp Care Lvl 3 Diagnoses Pleural effusion on left J90 COPD (chronic obstructive pulmonary disease) J44.9 COPD type: unspecified COPD Acute respiratory failure with hypoxia J96.01
[2020-09-08] MEDS: UMECLIDINIUM BROMIDE 62.5MCG/BLISTER 7 PUFFS/INHALER INH SCH (14:26)
--- NOTE | 2020-09-08 14:30 | Palliative Care Progress Note ---
Date of Service September 08, 2020 Assessment & Plan (1) Palliative care encounter: I met with Mr. Morales at his bedside and he was in no apparent distress. 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 He was able to recall my conversation with him earlier this week and stated he did reflect on some of the questions. We have been discussing aggressive vs conservative treatment plans and he stated that he thinks he is receptive to Hospice. I made sure he understood that hemodialysis was contraindicated with Hospice. He did eventually decide to pursue having a chest tube placed tomorrow, which he said will help him understand how he tolerates this and if it will help. Additionally, Urology has been following him for the possibility of having a stent exchanged. Overall, unfortunately, I do think that this patient has multiple comorbidities stacking against him and see him progressively declining even during this hospitalization. He turned to his and said "tell me what to do" and she lexi d "I want you to live, but you can make the decisions". I asked Palomo again if he was fearful of dying and he said "yes". I asked him to elaborate. He said he is scared of leaving his and sister and brother. He also said "I am not sure my heart is in a good place with God". 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 Palomo said he appreciates our conversations and they help him consider challenging decisions. 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 Plan to continue visiting with the patient to determine how he progresses with aggressive treatment interventions and continue to assist with decision making. (2) COPD (chronic obstructive pulmonary disease): (3) History of nephrostomy: (4) Enterococcal septicemia: (5) ESRD needing dialysis: Admission and Anticipated Discharge Date Admission Date: August 25, 2020 Subjective No acute events overnight. Palomo was seen and evaluated during hemodialysis this morning. Review of Systems Review of Systems: Atkins Symptom Assessment System Revised (ESAS-r) Pain: 1/3 Tiredness: 2/3 Lack of Appetite: 1/3 SOB: 1/3 Depression: 1/3 Anxiety: 0/3 Physical Exam Constitutional: + ill appearing, + well hydrated, cooperative and comfortable Respiratory: normal respiratory effort and + cough Auscultation: + diminished lung sounds Cardiovascular: Rate/Rhythm: regular rate and regular rhythm Extremities: normal capillary refill and + edema Gastrointestinal (Abdomen): normal bowel sounds, soft, nontender, no hepatosplenomegaly Percussion/Palpation: abdomen soft Skin: no rashes, warm and dry Psychiatric: A+Ox3, euthymic affect Results & Data ([facility]) Vital Signs (Past 12 Hours) Vital Signs Temp Pulse Pulse Pulse Resp BP BP 09/08/20 13:20 66 124/59 L 09/08/20 13:00 60 135/63 09/08/20 12:48 65 126/64 09/08/20 12:40 65 94/59 L 09/08/20 12:20 63 113/58 L 09/08/20 12:00 60 138/63 09/08/20 11:40 60 122/58 L 09/08/20 11:20 60 127/61 09/08/20 11:00 60 125/64 09/08/20 10:40 60 124/63 09/08/20 10:20 60 140/68 09/08/20 10:09 60 139/67 09/08/20 09:59 36.9 C 66 09/08/20 07:48 36.9 C 60 18 134/86 Pulse Ox 09/08/20 13:20 09/08/20 13:00 09/08/20 12:48 09/08/20 12:40 09/08/20 12:20 09/08/20 12:00 09/08/20 11:40 09/08/20 11:20 09/08/20 11:00 09/08/20 10:40 09/08/20 10:20 09/08/20 10:09 09/08/20 09:59 09/08/20 07:48 94 PG Care Time/CCT Total # of Minutes Spent Total Time Spent with Patient: Total time spent is greater than 50% in coordination of care (as documented) at patient's floor/unit and/or counseling patient: 45 Coding Level of Care Code 21163 Subseq Hosp Care Lvl 3 Diagnoses Palliative care encounter Z51.5 COPD (chronic obstructive pulmonary disease) J44.9 COPD type: unspecified COPD History of nephrostomy Enterococcal septicemia A41.81 ESRD needing dialysis N18.6; Z99.2 Time Spent (min) 45 Time Spent Midlevel Total time spent 45 minutes with > 50% of that time spent assessing the patient, discussing goals of care with the patient and his , while collaborating with the IDT (1) COPD (chronic obstructive pulmonary disease) COPD type: unspecified COPD Qualified Code(s): J44.9 - Chronic obstructive pulmonary disease, unspecified
[2020-09-08] MEDS: CASPOFUNGIN 50 MG in SODIUM CHLORIDE 0.9% 250 ML IV SCH (14:38)
[2020-09-08] MEDS: NEPHROCAPS PO SCH (15:05)
[2020-09-08] MEDS: GABAPENTIN 300 MG CAP PO SCH (15:05)
[2020-09-08] MEDS: amLODIPine BESYLATE 5 MG TAB PO SCH (15:05)
[2020-09-08] MEDS: TAMSULOSIN HCL 0.4 MG CAP PO SCH (15:05)
--- NOTE | 2020-09-08 16:35 | Urology Progress Note ---
Date of Service September 08, 2020 Assessment & Plan (1) History of nephrostomy: right ureteral stent; prior nephrostomy renal failure HD - leaking from nephrostomy - I would still like to change his ureteral stent at some stage, but I prefer to wait until his chest tube has been placed and his resp status improves Admission and Anticipated Discharge Date Admission Date: August 25, 2020 Subjective doing ok HD today x3.5 hours breathing pattern is unchanged possible chest tube tomorrow Physical Exam Physical Exam: dressing over his right flank (nephrostomy site continues to leak) Constitutional: well developed and well nourished Respiratory: no respiratory distress Cardiovascular: Extremities: no pedal edema Gastrointestinal (Abdomen): Inspection/Auscultation: abdomen normal to inspection Results & Data ([facility]) Vital Signs (Past 12 Hours) Vital Signs Temp Pulse Pulse Pulse Resp BP BP 09/08/20 15:55 37.3 C 75 18 150/65 H 09/08/20 14:29 36.9 C 63 150/80 H 09/08/20 13:20 66 124/59 L 09/08/20 13:00 60 135/63 09/08/20 12:48 65 126/64 09/08/20 12:40 65 94/59 L 09/08/20 12:20 63 113/58 L 09/08/20 12:00 60 138/63 09/08/20 11:40 60 122/58 L 09/08/20 11:20 60 127/61 09/08/20 11:00 60 125/64 09/08/20 10:40 60 124/63 09/08/20 10:20 60 140/68 09/08/20 10:09 60 139/67 09/08/20 09:59 36.9 C 66 09/08/20 07:48 36.9 C 60 18 134/86 Pulse Ox 09/08/20 15:55 93 09/08/20 14:29 09/08/20 13:20 09/08/20 13:00 09/08/20 12:48 09/08/20 12:40 09/08/20 12:20 09/08/20 12:00 09/08/20 11:40 09/08/20 11:20 09/08/20 11:00 09/08/20 10:40 09/08/20 10:20 09/08/20 10:09 09/08/20 09:59 09/08/20 07:48 94 PG Care Time/CCT Total # of Minutes Spent Total Time Spent with Patient: Total time spent is greater than 50% in coordination of care (as documented) at patient's floor/unit and/or counseling patient: Coding Level of Care Code 13467 Subseq Hosp Care Lvl 2 Diagnoses History of nephrostomy
[2020-09-08] MEDS ORDERED: GLUCAGON FOR INJ 1 MG VIAL SQ PRN (17:08)
[2020-09-08] MEDS ORDERED: GLUCOSE 40% GEL 15 GM TUBE PO PRN (17:08)
[2020-09-08] MEDS ORDERED: DEXTROSE 50% 50 ML SYRINGE IV PRN (17:08)
[2020-09-08] MEDS ORDERED: GLUCOSE 10 TABS/TUBE PO PRN (17:08)
[2020-09-08] MEDS ORDERED: CARBOHYDRATES FOR HYPOGLYCEMIA PO PRN (17:08)
[2020-09-08] MEDS: ONDANSETRON INJ 2 MG/ML 2 ML VIAL IV PRN (22:52)
--- NOTE | 2020-09-09 01:50 | Communication Note ---
Date of Service: September 09, 2020 Called to bedside for change in clinical condition. Pt with coughing spell, increased respiratory distress, and appearing more ill. On assessment LLL braga diminished, crackles in RLL, good air movement in RUL and moderte air movement in ELYSIA. Chart reviewed, pt pending chest tube placement and s/p 2x thorocentesis revealing exudative fluid and atypical cells. Suspected flash edema event with possible aspiration event, ddx inlucdes PE as pt heparin held for chest tube placement. Pt was not tachycardic and was mildly hypertensive. Pt is dialysis de pendent with minimal urine output, not responsive to lasix per report.CXR, VBG ordered, nitro paste 1 inch placed, and BiPAP ordered; pt transferred to PCU for higher level of care
[2020-09-09 05:41] LABS: Base Excess VBG -0.1 mEq/L; pH VBG 7.36 (7.36-7.41)
--- NOTE | 2020-09-09 07:04 | Hospitalist Progress Note ---
Date of Service September 09, 2020 Assessment & Plan (1) Acute respiratory failure with hypoxia: * Complete opacification of the left lung on CXR 09/02 - secondary to large complex pleural effusion * Pulm consulted - appreciate assistance Thoracentesis for 2.2L on 09/04 -- EXUDATIVE process. protein 3.3, LDH 156, pH 7.64H, glucose 108. Serum protein 6, LDH 211 * Pleural urea pending given possible urothorax. pleural cr send-out. * Thoracentesis 09/06 also exudative in appearance and drained 900cc. (2.2L on 09/04) * Body fluid slide with atypical cells present, cannot exclude malignancy. Cytology pending --> Rare atypical cells present. I personally spoke with pathology who feels these atypical cells could be from infection and not true malignancy * Decompensated in the overnight hours of 09/08- was transferred to telemetry he has complete whiteout of the left lung attempts at thoracentesis were met without significant fluid production however the mist protocol be undertaken to try to lyse adhesions and try to have some fluid dilute from the chest * 09/06 CT Chest w/o -- small right and moderate to large left pleural effusions. mild dependent subsegmental right basilar atelectasis with compressive atelectasis of the left upper lobe and lingula. Near complete consolidation/collapse of the left lower lobe. Small pericardial effusion with new mild stranding within the mediastinal fat and epicardium, likely related to fluid overload. 5 mm groundglass nodule of the right lung apex. * chest tube placement and possible MIST protocol -- 09/09 * Cough productive of clear sputum per patient, He completed 7 days with Zosyn on 09/01 * Currently 93% on 3L (2) Candidemia: * 1 of four blood cultures growing domenico glabrata complex. * ID consulted - ALONDRA without vegetations noted * Repeat blood cultures 09/07 * Pulm recommending sensitivities due to increased resistances. Discussed with lab and they were sent to [facility] 09/05 * Pleural blood urea pending given possibility of urothorax. Also added pleural cr but is a send out as well and will take several days * Patient will need two weeks of caspofungin from last positive blood culture. 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 * Completed 7 days of Zosyn (5) Elevated troponin: * No angina, did have 2 echos last admission( one that was ALONDRA) with preserved EF, continuing metoprolol. Resumed hydralazine and amlodipine as pressures had been increasing * Trop 0.074 on admission and essentially unchanged x2 after admission * Trop 12/29/19 at 0.094, likely chronically elevated in the setting of CKD IV * Trop unchanged on repeat. EKG unchanged. Pacemaker functioning. Pt also with small pericardial effusion on CT 09/06 (6) COPD (chronic obstructive pulmonary disease): * Home symbicort, Spiriva * No further prednisone -- received 40 mg x 5 days (7) Chronic pancreatitis: * has no complaints of abd pain, will continue creon (8) Insulin-requiring or dependent type II diabetes mellitus: * Pt required iv insulin gtt initially but is now on subq insulin. Managed by pharmacy * A1c 6.6 (9) Hypothyroidism (acquired): * synthroid 88 mcg was recently increased [facility]mcg [facility], however states this was not started yet * Dose adjusted 08/27 * Continue 100mcg daily (10) Smoker: * nicotine patch discontinued (11) Abnormal finding on urinalysis: * 3+ leuk est, neg nitrites, yeast noted * Urine cx mixed skin nu - dc'd dapto (12) Positive blood culture: * As above (13) History of nephrostomy: * Removed 08/04 but with increasing urine drainage. Urology consulted - Does not recommend suturing closed. May upsize his ureteral stent later this week This was delayed at this point time his respiratory status makes him difficult to take to the operating room (14) Hyponatremia: * Resolved. Na 138 (15) Constipation: * Resolved (16) Hyperphosphatemia: * Sevelamer 800mg BID per nephrology. Improved on labs. * Continue to monitor (17) Chest pain: * Reported on morning of 09/06 wax/waning, sharp/stabbing. * Nitropaste * EKG with atrial paced rhythm with prolonged AV conduction, non-specific intraventricular block. Electronic atrial pacemaker has replaced electronic ventricular pacemaker and ventricular rate decreased by 83bpm * Troponin unchanged from 08/25 -- likely related to his CKD as well as pericardial effusion/volume overload * Pain could also be contributed by the fluid and compression of phrenic nerve * Pain improved with nitropaste and will continue to monitor on third floor per patient request at this time * NO CHEST PAIN REPORTED SINCE AM of 09/06 * Continue to monitor (18) DVT prophylaxis: * Restart heparin subcu Pt states that the [facility] has been working to get him [facility] for a [facility] for use when away from home PT/OT - recommending rehab but patient is refusing. Family not feeling that they would be able to take him home at this point but will continue to assess progress. Attempting to find some caregivers to come in for a few hours each day Mr. Morales has multiple issues at hand with severe deconditioning and poor nutritional status. His prognosis is poor at this point. Evaluated by palliative care 09/05 -- plans to treat current state and possibly move forward with skilled with transition to hospice at discharge if able Will reach out for further discussion if patient continues to decline interventions Admission and Anticipated Discharge Date Admission Date: August 25, 2020 Subjective this pt decompensated overnight with worsened shortness of breath, was transfer red to higher level of care due to respiratory distress and started on covid. previous discussion for thoracentesis 09/09/20 Fortunately after the thoracentesis there is very little output retrying the mist protocol. Patient is in somewhat uncomfortable and was mostly angry because he was n.p.o. most of the day yesterday for urological procedure which did not occur Review of Systems Review of Systems: Moderate distress and fatigue no headache, blurry or double vision no speech or swallowing issues no chest pain, pressure or palpitations shortness of breath at rest no abdominal pain, nausea or vomiting, diarrhea or constipation no focal joint pain does have lower extremity swelling lower back pain, no radicular pain no bruising, bleeding or rashes no focal signs of weakness or numbness or altered sensation no complaints of anxiety or depression. Physical Exam Physical Exam: The patient appeared chronically ill and in moderate distress Vital signs as documented. Soon his blood pressure slightly low he is tachypneic Head exam is normocephalic atraumatic no scleral icterus Neck trachea is midline Lungs are overall diminished breath sounds no focal loss no wheezes no particularly prolonged expiratory phase Cardiac exam, Rhythm is regular.. No murmurs, rubs or gallops. Abdominal exam reveals normal bowel sounds, soft slightly distended Extremities are trace edema if anything he has a raise on his left leg from foot drop which is pre-existing condition Neurologic exam is alert and oriented, no focal loss of strength or sensation session of left foot drop Skin is without bruises or rashes Psychologically is without concerns for anxiety or depression. Results & Data Results & Data ([facility]) Vital Signs (Past 12 Hours) Vital Signs Temp Pulse Pulse Resp BP Pulse Ox 09/09/20 04:05 61 20 98 09/09/20 02:38 60 27 H 98 09/08/20 21:42 99.1 F 65 16 164/68 H 95 PG Care Time/CCT Total # of Minutes Spent Total Time Spent with Patient: Total time spent is greater than 50% in coordination of care (as documented) at patient's floor/unit and/or counseling patient: Coding Level of Care Code 47976 Subseq Hosp Care Lvl 3 Diagnoses Acute respiratory failure with hypoxia J96.01 Candidemia B37.7 CKD (chronic kidney disease) N18.9 LLL pneumonia J18.9 Pneumonia type: due to unspecified organism Elevated troponin R77.8 COPD (chronic obstructive pulmonary disease) J44.9 COPD type: unspecified COPD Chronic pancreatitis K86.1 Pancreatitis type: unspecified pancreatitis type Insulin-requiring or dependent type II diabetes mellitus E11.9; Z79.4 Hypothyroidism (acquired) E03.9 Smoker F17.200 Abnormal finding on urinalysis R82.90 Positive blood culture R78.81 History of nephrostomy Hyponatremia E87.1 Constipation K59.00 Hyperphosphatemia E83.39 Chest pain R07.9 DVT prophylaxis Z29.9 (1) Chronic pancreatitis Pancreatitis type: unspecified pancreatitis type Qualified Code(s): K86.1 - Other chronic pancreatitis (2) COPD (chronic obstructive pulmonary disease) COPD type: unspecified COPD Qualified Code(s): J44.9 - Chronic obstructive pulmonary disease, unspecified (3) LLL pneumonia Pneumonia type: due to unspecified organism Qualified Code(s): J18.9 - Pneumonia, unspecified organism
--- NOTE | 2020-09-09 07:35 | Pharmacy Report ---
Pharmacy Glycemic Short Note 2 - Date of Service September 09, 2020 - Glycemic Short BSG Results (Last 24 hours): 09/08/20 09/08/20 09/08/20 06:02 12:10 18:06 Glucose 144 H POC Glucose 114 H 139 H 09/08/20 09/09/20 20:31 00:56 Glucose POC Glucose 162 H 170 H ASSESSMENT: 09/09: * Pt decompensated and transferred to telemetry last night for SOB * Blood sugars at goal over past 48 hours except one episode of hypoglycemia on 09/07 * Changed Lantus parameters so patient receives no insulin unless BSG > 140mg/dl * Loosened CF/CR to prevent hypoglycemia 09/07: * Palomo received 21 units of insulin yesterday with adequate glycemic control: * 10 units of basal insulin * 11 units of prandial/correctional insulin * BSGs: 170, 207, 115, 143 * Anticipate no major changes to insulin regime over the next 24 hours: * Fasting BSG of 131 mg/dL is near goal. Continue current Lantus orders. * Post prandial BSGs are acceptable. 09/06: * Palomo received 19 units of insulin yesterday with adequate glycemic control: * 5 units of basal insulin * 14 units of prandial/correctional insulin * BSGs: 160, 211, 147, 180 * Of note, patient was NPO during this time * Anticipating insulin regimen will need increased for the next 24hrs d/t : * AM Fasting BSG = 170 mg/dL. Lantus will be increased for fasting BSG above goal. * Post prandial BSGs fluctuated yesterday. May need to tighten carb coverage now that diet has been resumed. * Anticipate insulin needs of ~25 units per day (as long as diet ordered and patient remains off steroids) 09/05: * Palomo received 14 units of insulin yesterday (all bolus) which is ~ 65% reduction in total daily dose from the previous day * Of note, Prednisone was discontinued yesterday and patient did not receive any NPH * BSGs were 154-450-69-49 mg/dL * Patient did experience hypoglycemia last evening. His BSG at bedtime was initially 49 mg/dL, and he was disoriented/confused, clammy, and diaphoretic. He was treated with 30 grams of carbohydrates and his BSGs trended down initially: 49-47-45 mg/dL. He was then given another 30 grams of carbohydrates and 25 mLs of D50. His BSGs began trending up: 55-55-99 mg/dL. Of note, he was NPO in the morning for a thoracentesis. * His fasting BSG this AM was 160 mg/dL - slightly above goal but will accept given hypoglycemia last evening. Also, patient is NPO this AM for a ALONDRA. I have already loosened his carbohydrate ratio as the amount of bolus insulin he received with lunch and dinner likely contributed to his hypoglycemia. * Lunchtime BSG was 211 mg/dL. * No change will be made to Novolog parameters at this time 09/04: * Patient received 39 units of insulin yesterday: 21 units of basal + 18 units of bolus * Prednisone 40 mg daily dose was discontinued, therefore no NPH insulin given today. * Fasting BSG = 100 mg/dl. Patient received 5 units of Lantus last night based on BSG scale. Will continue with this. * Pre-lunch BSG was elevated at 231 mg/dl. Patient was NPO this AM for thoracentesis. Diet re-ordered with lunch. Novolog parameters adequately controlled BSGs yesterday. Will continue with same. PLAN FOR INPATIENT GLYCEMIC CONTROL: * Basal insulin -change BSG range * Lantus 0-10 units SC BID per scale: * 0 units for BSG < 140 * 5 units for BSG 140-180 * 10 units for BSG > 180 * Bolus insulin * NovoLog per scale ACHS or Q6hrs while NPO. * Goal Range: Low 110 mg/dL - High 140 mg/dL * loosen: Correction Factor: 30 mg/dL/unit * loosen: Nutritional / Prandial insulin per carb ratio of 1 unit per 12 grams CHO consumed DISCHARGE RECOMMENDATIONS: * HbA1c = 6.6% from this admission. This demonstrates excellent outpatient control of T2DM and is at goal. * Patient admits to poor appetite, decreased PO intake and weight loss of almost 20 lbs prior to admission. There is concern for hypoglycemia given current outpatient insulin dose. * Recommend: * SMBG at least 2 x per day * Patient should closely follow up with outpatient provider regarding BSGs once discharged to develop a plan in the event that he continues to have poor appetite and decreased PO intake. * Could consider a slight reduction in home insulin dose to ensure patient does not experience hypoglycemia. * Please note that the plan above was derived based on current level of insulin resistance and hospital stress. These recommendations are appropriate for inpatient admission only. Plan of care upon discharge will need to be reassessed to avoid potential outpatient hypo/hyperglycemia. Thank you.
[2020-09-09] MEDS: hydrALAZINE 10 MG TAB PO SCH ×2 (08:26→20:19)
[2020-09-09] MEDS: LEVOTHYROXINE SODIUM 100 MCG TABLET PO SCH (08:26)
[2020-09-09] MEDS: NITROGLYCERIN 2% OINTMENT 30GM TUBE EXT SCH ×3 (08:26→17:21)
[2020-09-09] MEDS: DOCUSATE SODIUM 100 MG CAP PO SCH ×2 (08:26→20:19)
[2020-09-09] MEDS: PANCREAZE (LIPASE 10,500U) CAP PO SCH ×3 (08:27→17:21)
[2020-09-09] MEDS: SEVELAMER HCL 800 MG TABLET PO SCH ×3 (08:27→17:21)
[2020-09-09] MEDS: METOPROLOL TARTRATE 25 MG TAB PO SCH ×2 (08:27→20:19)
[2020-09-09] MEDS: UMECLIDINIUM BROMIDE 62.5MCG/BLISTER 7 PUFFS/INHALER INH SCH (08:28)
[2020-09-09] MEDS: INSULIN GLARGINE SOLOSTAR 100 UNITS/ML 3 ML PEN SC SCH ×2 (08:29→20:18)
[2020-09-09] MEDS: TAMSULOSIN HCL 0.4 MG CAP PO SCH (08:30)
[2020-09-09] MEDS: INSULIN ASPART 100 UNITS/ML 3 ML PEN SC SCH ×5 (08:32→20:17)
[2020-09-09] MEDS: GABAPENTIN 300 MG CAP PO SCH (08:34)
[2020-09-09] MEDS: CASPOFUNGIN 50 MG in SODIUM CHLORIDE 0.9% 250 ML IV SCH (08:34)
[2020-09-09] MEDS: amLODIPine BESYLATE 5 MG TAB PO SCH (08:34)
[2020-09-09] MEDS: NEPHROCAPS PO SCH (08:34)
--- NOTE | 2020-09-09 08:50 | XRay Report ---
XR chest 1V portable CLINICAL HISTORY: Sudden Shortness of breath COMPARISON STUDY: 09/08/2020 FINDINGS: There is a left subclavian dual-chamber central venous pacemaker. There is near complete op acification of left hemithorax. This is felt to be secondary to a combination of a left pleural effus ion and left lung consolidation/volume loss. The right lung is clear.[ IMPRESSION: Progressive opacification of the left hemithorax. ACT 112: Negative or not required by law. Electronically signed by: Bethel Cardoso M.D. 09/09/2020 8:49 AM
--- NOTE | 2020-09-09 10:34 | Pulmonology Progress Note ---
Date of Service September 09, 2020 Assessment & Plan (1) Pleural effusion on left: This is a 74-year-old male admitted to the hospital 08/25/2020 because of shortness of breath. He was negative for coronavirus 2 weeks ago. 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 Consult was placed because of white out of left side of thorax. Patient had thoracentesis performed 09/04/2020 and again on 09/06/2020. Fluid was exudative per laboratory findings. Pathology on first sample from 09/04/2020 consistent with atypical cells. Pathology pending on second sample from 09/06/2020. --Opacification of the left hemithorax From large complex pleural effusion given fibrillation appreciated in the effusion Status post thoracentesis 09/04/2020, removal of 2.2L dark yellow fluid. Exudative as per lights criteria Repeat thoracentesis 09/06/2020, removal of 900 mL melvin fluid. Again exudative, pH of 7.27 09/05/2020 Pleural fluid:- Protein 3.3, LDH 156, pH 7.64, glucose 108 09/05/2020 Serum:- Protein 6, LDH 211 09/06/2020: Protein 3.2, LDH 169, glucose 125, pH 7.27 09/06/2020: Protein 6.1, LDH 234 Follow-up culture --> no growth to date Given the history of obstructive kidney failure. Possibility of Urothorax is also there. Follow-up fluid urea Cytology from 09/05/2020 is positive for atypical cells. Follow repeat cytology which was done on 09/06/2020. --COPD Not on any inhalers at home. Continue with Incruse on a daily basis. Will benefit from PFTs as an outpatient. --Candidemia On caspofungin, recommend following up sensitivities because of increasing resistance Difficult to treat especially given that the patient has pacemaker as well Treatment as per primary team Plan: Worsening of the left-sided pleural effusion. Plan would be to put a chest tube today. I saw the patient and told him about the procedure. He was frustrated and he said that come later and he will decide on that. I did explain that he might get worse if he does not get the fluid out. I will go again later today and if he is willing we will put a pigtail catheter in. Please note the above document was generated using voice recognition software. It may contain grammatical, syntax or spelling errors.Any formal questions or concerns about the content, text or information contained within the body of this dictation should be directly addressed to the provider for clarification. (2) COPD (chronic obstructive pulmonary disease): COPD type: unspecified COPD Qualified Code(s): J44.9 - Chronic obstructive pulmonary disease, unspecified (3) Acute respiratory failure with hypoxia: Admission and Anticipated Discharge Date Admission Date: August 25, 2020 Subjective Patient seen and examined at bedside. On BiPAP at the time of examination. Patient was complaining of shortness of breath overnight. Chest x-ray was done which showed again opacification of the left hemithorax. Likely increasing pleural effusion I did explain to the patient that the effusion has increased again and she he might need a chest tube placement to drain all the fluid given the loculation that he had. He was a bit agitated and frustrated as he was n.p.o. yesterday no procedure was done. He is n.p.o. today as well. If he is n.p.o. for the chest tube he does not need to be. Denies any headache, no nausea or vomiting. Review of Systems Review of Systems: All systems reviewed & are unremarkable except as noted in Subjective Physical Exam Physical Exam: Constitutional: No acute distress HEENT: EOMI, PERRLA Respiratory system: Decreased air entry on the left side, positive crackles bilateral lower lobes, no wheeze, no rhonchi CVS: S1-S2 positive Abdomen: Soft, nontender, nondistended, positive bowel sounds x4, obese Extremities: +2 pulses bilaterally radialis/ dorsalis pedis, no cyanosis, +1 edema bilateral lower extremity, right arm aVF Neuro: Awake alert oriented x3 Psych: Normal mood and affect G/U: No [place] Skin: no rashes, warm and dry Lymphatic: no cervical or axillary lymphadenopathy Results & Data Results & Data ([facility]) Vital Signs (Past 12 Hours) Vital Signs Temp Pulse Pulse Resp BP Pulse Ox 09/09/20 08:01 61 31 H 94 09/09/20 07:34 37.0 C 60 19 140/64 94 09/09/20 04:05 61 20 98 09/09/20 02:38 60 27 H 98 09/08/20 06:02 09/08/20 06:02 PG Care Time/CCT Total # of Minutes Spent Total Time Spent with Patient: Total time spent is greater than 50% in coordination of care (as documented) at patient's floor/unit and/or counseling patient: Coding Level of Care Code 93544 Subseq Hosp Care Lvl 3 Diagnoses Pleural effusion on left J90 COPD (chronic obstructive pulmonary disease) J44.9 COPD type: unspecified COPD Acute respiratory failure with hypoxia J96.01
--- NOTE | 2020-09-09 10:43 | Urology Progress Note ---
Date of Service September 09, 2020 Assessment & Plan (1) Acute renal failure: (2) History of nephrostomy: 74 yo M with multiple comorbidities admitted for acute respiratory failure secondary to pneumonia. - Plan of care reviewed with Dr. Hoffmann - Right ureteral stent, prior nephrostomy, renal failure - Remains Afebrile - Plans for chest tube today per Pulmonology - No acute intervention indicated at this time - Will continue to follow while inpatient, plan to reassess for ureteral stent exchange and possible bladder biopsy once improvement of acute condition - He understands that intervention may be delayed if respiratory status not optimized - Continue supportive care and close observation Admission and Anticipated Discharge Date Admission Date: August 25, 2020 Subjective Patient examined at bedside this AM Awake, resting in bed on arrival Transferred to higher level of care overnight d/t respiratory distress On BiPAP at the time of examination. Denies fevers or chills Denies any pain/discomfort Denies hematuria/dysuria Denies nausea/vomiting Currently NPO Chart Review: Afebrile WBC (09/08)- 13.70 Hgb (09/08)- 9.0 Cr (09/08)- 5.70 On IV Capsofungin No additional concerns today Review of Systems Constitutional: as per Subjective / HPI Respiratory: as per Subjective / HPI Gastrointestinal: as per Subjective / HPI Genitourinary: + as per Subjective / HPI Physical Exam Constitutional: well developed and well nourished; no acute distress Respiratory: able to speak in complete sentences ON BiPaP Gastrointestinal (Abdomen): Inspection/Auscultation: abdomen normal to inspection Skin: Warm and dry Neurologic: awake; not confused Psychiatric: Orientation: alert and oriented x 3 Genitourinary: Dressing C/D/I to Right Flank Results & Data ([facility]) Vital Signs (Past 12 Hours) Vital Signs Temp Pulse Pulse Resp BP Pulse Ox 09/09/20 08:01 61 31 H 94 09/09/20 07:34 37.0 C 60 19 140/64 94 09/09/20 04:05 61 20 98 09/09/20 02:38 60 27 H 98 PG Care Time/CCT Total # of Minutes Spent Total Time Spent with Patient: Total time spent is greater than 50% in coordination of care (as documented) at patient's floor/unit and/or counseling patient: Coding Level of Care Code 98129 Subseq Hosp Care Lvl 2 Diagnoses Acute renal failure N17.9 History of nephrostomy
--- NOTE | 2020-09-09 11:43 | Nephrology Progress Note ---
Date of Service September 09, 2020 Assessment & Plan (1) ESRD needing dialysis: HD TTS. AVG functioning well. Net UF 1.6 L yesterday. Remains in a slightly negative fluid balance. Palomo was resistant to more blood work today. He continues to struggle somewhat with the burden of interventions involved in his care. He describes this as pacing himself. I will defer labs at his request and order repeat labs in the AM prior to HD. Medications are appropriately dosed for kidney function. Renal MVI daily. Renvela QAC for hyperphosphatemia. PO4 slightly elevated but acceptable. will monitor. (2) Anemia: Venofer completed during recent admission. Epogen provided Q Saturday as inpatient. Hgb stable. (3) Goals of care, counseling/discussion: Ongoing conversation. Agreeable to chest tube placement at this time to improve his respiratory status. Admission and Anticipated Discharge Date Admission Date: August 25, 2020 Subjective Acute respiratory distress noted overnight. Improved with supportive care including BIPAP. Unfortunately, has not tolerated weaning of BIPAP this AM. No fevers or chills. Tolerated HD reasonably well. Net UF 1.6 L with 2 L goal. UF limited due to hypotension and cramping during treatment. Palomo continued to express reservations about chest tube placement this morning but did seem more agreeable to intervention in attempt to improve his respiratory status. Review of Systems Review of Systems: All systems reviewed & are unremarkable except as noted in HPI & below Physical Exam Constitutional: + frail appearing; no acute distress Eyes: + anicteric sclerae; no corneal abnormality ENMT: Mouth: + dry oral mucous membranes; no oral mucosal abnormality Neck: normal visual inspection and trachea midline Respiratory: + tachypneic Auscultation: lungs clear to auscultation bilaterally Cardiovascular: Rate/Rhythm: regular rate Heart Sounds: normal S1 and normal S2 Extremities: + edema (trace dependent) and + AV fistula (RUE BC AVG) Musculoskeletal: Extremities: no cyanosis and no clubbing Skin: normal turgor; no lesions Neurologic: Motor/Sensory: no tremor and no asterixis Psychiatric: Orientation: alert and oriented x 3 Results & Data ([facility]) Vital Signs (Past 12 Hours) Vital Signs Temp Pulse Pulse Resp BP Pulse Ox 09/09/20 11:28 36.6 C 60 22 121/62 93 09/09/20 08:01 61 31 H 94 09/09/20 07:34 37.0 C 60 19 140/64 94 09/09/20 04:05 61 20 98 09/09/20 02:38 60 27 H 98 Laboratory Results Laboratory Results - last 24 hr 09/04/20 09/08/20 09/08/20 10:30 12:10 18:06 VBG pH VBG pCO2 VBG pO2 VBG HCO3 VBG O2 Saturation VBG Base Excess Barometric Pressure POC Glucose 114 H 139 H Fluid Urea Nitrogen Src PLEURAL Fluid Urea Nitrogen 29 09/08/20 09/09/20 09/09/20 20:31 00:56 05:32 VBG pH 7.36 VBG pCO2 46 VBG pO2 43 VBG HCO3 26 VBG O2 Saturation 75.0 VBG Base Excess -0.1 Barometric Pressure 737.1 POC Glucose 162 H 170 H Fluid Urea Nitrogen Src Fluid Urea Nitrogen 09/09/20 08:26 VBG pH VBG pCO2 VBG pO2 VBG HCO3 VBG O2 Saturation VBG Base Excess Barometric Pressure POC Glucose 181 H Fluid Urea Nitrogen Src Fluid Urea Nitrogen PG Care Time/CCT Total # of Minutes Spent Total Time Spent with Patient: Total time spent is greater than 50% in coordination of care (as documented) at patient's floor/unit and/or counseling patient: Coding Level of Care Code 52458 Subseq Hosp Care Lvl 3 Diagnoses ESRD needing dialysis N18.6; Z99.2 Anemia D64.9 Goals of care, counseling/discussion Z71.89
--- NOTE | 2020-09-09 11:45 | Palliative Care Progress Note ---
Date of Service September 09, 2020 Assessment & Plan (1) Palliative care encounter: We reviewed his goals of care discussion from earlier in the week. He has consented to chest tube placement if it will relieve some of his dyspnea. He is concerned about going through uncomfortable procedures if they are not going to help. We discussed that he will likely get some benefit but that he has multiple comorbidities and his prognosis is poor. He expresses a desire to have some quality time before he dies. We did discuss that he can proceed with the chest tube and that if he decides at any time that he does not want to continue aggressive care, we will respect that and focus on comfort. His is at bedside but defers any decisions to him and does not participate in discussion. We will continue to follow. (2) Acute respiratory failure with hypoxia: (3) ESRD needing dialysis: (4) Pleural effusion on left: Admission and Anticipated Discharge Date Admission Date: August 25, 2020 Subjective Now on bipap. He reports that breathing feels uncomfortable and is lying on his left side. He does not like the bipap mask and is frustrated about having been NPO all day yesterday. He denies pain. Review of Systems Review of Systems: [place] Symptom Assessment Scale Pain 0/3 Dyspnea 2/3 Nausea 0/3 Anxiety 1/3 Drowsiness 0/3 Delirium 0/3 Physical Exam Constitutional: + uncomfortable Respiratory: does not use accessory muscles on bipap Skin: warm and dry Neurologic: no focal motor deficits Psychiatric: Orientation: alert and oriented x 3 Insight: good insight Judgement: good judgement Results & Data ([facility]) Vital Signs (Past 12 Hours) Vital Signs Temp Pulse Pulse Resp BP Pulse Ox 09/09/20 08:01 61 31 H 94 09/09/20 07:34 98.6 F 60 19 140/64 94 09/09/20 04:05 61 20 98 09/09/20 02:38 60 27 H 98 PG Care Time/CCT Total # of Minutes Spent Total Time Spent with Patient: Total time spent is greater than 50% in coordination of care (as documented) at patient's floor/unit and/or counseling patient: 36 With more than 50% of time spent on discussing goals and plan of care. Coding Level of Care Code 58332 Subseq Hosp Care Lvl 3 Diagnoses Palliative care encounter Z51.5 Acute respiratory failure with hypoxia J96.01 ESRD needing dialysis N18.6; Z99.2 Pleural effusion on left J90 Time Spent (min) 36 Comment [id number]
[2020-09-09] MEDS ORDERED: LIDOCAINE HCL 1% 20 ML VIAL ONE (13:12)
--- NOTE | 2020-09-09 14:13 | Procedure Note ---
Procedure Note Date of Service September 09, 2020 Procedure: Pigtail chest tube insertion Manager Desktop: Dr. Luis Roche Indication: Left-sided pleural effusion with multiple loculations Consent: Signed by patient and verified with timeout prior to procedure Anesthesia: 1% lidocaine without epinephrine local Procedure: Consent was verified and timeout performed. Appropriate imaging studies were reviewed prior to the procedure. Patient was placed in a seated position. Appropriate site above the diaphragm on the left midaxillary line fourth intercostal space for chest tube insertion was selected. The skin was prepped and draped in normal sterile fashion. Lidocaine was used for local analgesia. Fluid was aspirated via the finder needle. A small skin vianey was made with the scalpel and the catheter over the needle apparatus was advanced over the rib into the pleural space. With the help of guidewire and Seldinger technique, 14 [place] pigtail catheter was inserted and connected to Pleur-evac. No air leak appreciated after that. Chest x-ray to follow The patient tolerated the procedure without obvious complication Only 100 mL of fluid came out and then it stopped on its own. This is most likely because of the multiple loculation of the patient has. I will start the patient on this protocol giving dornase kam along with TPA intrapleurally. For total of 6 doses over 3 days twice daily starting now. Complications: None Blood loss: Less than 2 cc. Coding CPT Codes Pulmonary/Thoracic - Pulmonary and Thoracic: 21837 Tube thoracostomy ([id number]) Pulmonary/Thoracic - Pulmonary and Thoracic: 66214 US, Chest, real time with imaging documentation ([id number]) Pulmonary/Thoracic - Pulmonary and Thoracic: 15326 [place] chest fibrin initial day ([id number]) [facility] [place] Procedure Codes ([place]) Pulmonary/Thoracic Procedure 2: Pulmonary and Thoracic: 23222 US, Chest, real time with imaging documentation Procedure 1: Pulmonary and Thoracic: 87055 Tube thoracostomy Procedure 3: Pulmonary and Thoracic: 12546 [place] chest fibrin initial day
--- NOTE | 2020-09-09 14:29 | XRay Report ---
SINGLE VIEW CHEST CLINICAL HISTORY: Chest tube placement. FINDINGS: An AP, portable, upright chest radiograph is compared to study performed earlier the same d ay 09/09/2020 and correlated with chest CT dated 09/06/2020. The examination is degraded by portable te chnique and patient rotation. A 2-lead cardiac pacemaker is unchanged in position. The cardiac silhou ette is obscured. Complete opacification of the left hemithorax has modestly increased from today's e arlier examination. This likely represents a large pleural effusion with atelectasis of the left lung . A pigtail catheter is now seen at the left lung base. The right lung appears clear noting basilar a telectasis. No pneumothorax is seen. The skeletal structures are osteopenic. The bony thorax is gross ly intact. IMPRESSION: 1. There is complete opacification of the left hemithorax. This appears modestly increased from today 's earlier examination and likely represents a large left pleural effusion with atelectasis/consolida tion of the left lung. 2. A pigtail catheter is now seen at the left lung base. 3. The right lung appears clear. Electronically signed by: Jaquan Damon M.D. 09/09/2020 2:27 PM
[2020-09-09] MEDS: ALTEPLASE, RECOMBINANT 10 MG in SYRINGE 50 ML IPL SCH (14:56)
[2020-09-09] MEDS ORDERED: LIDOCAINE HCL 1% 20 ML VIAL INFIL SCH (15:10)
[2020-09-09] MEDS ORDERED: LIDOCAINE HCL 2% 2 ML VIAL/AMP(20MG/ML) INFIL ONE (15:35)
[2020-09-09] MEDS: DORNASE ALFA 5 ML in SYRINGE 25 ML IPL SCH (16:05)
[2020-09-09] MEDS ORDERED: Nursing to Pharmacy Communication SCH (18:00)
[2020-09-10] MEDS: HEPARIN SOD 5,000 UNIT/0.5 ML VIAL SQ SCH ×3 (01:25→21:00)
[2020-09-10] MEDS: NITROGLYCERIN 2% OINTMENT 30GM TUBE EXT SCH ×6 (01:26→23:46)
[2020-09-10] MEDS: ALTEPLASE, RECOMBINANT 10 MG in SYRINGE 50 ML IPL SCH ×2 (02:33→16:12)
[2020-09-10] MEDS: DORNASE ALFA 5 ML in SYRINGE 25 ML IPL SCH ×2 (03:36→17:26)
[2020-09-10] MEDS: ACETAMINOPHEN 325 MG TAB PO PRN ×2 (03:42→15:29)
[2020-09-10] MEDS: ONDANSETRON INJ 2 MG/ML 2 ML VIAL IV PRN (05:45)
--- NOTE | 2020-09-10 07:22 | Hospitalist Progress Note ---
Date of Service September 10, 2020 Assessment & Plan (1) Acute respiratory failure with hypoxia: * Complete opacification of the left lung on CXR 09/02 - secondary to large complex pleural effusion * Pulm consulted - appreciate assistance Thoracentesis for 2.2L on 09/04 -- EXUDATIVE process. protein 3.3, LDH 156, pH 7.64H, glucose 108. Serum protein 6, LDH 211 * Pleural urea pending given possible urothorax. pleural cr send-out. * Thoracentesis 09/06 also exudative in appearance and drained 900cc. (2.2L on 09/04) * Body fluid slide with atypical cells present, cannot exclude malignancy. Cytology pending --> Rare atypical cells present. I personally spoke with pathology who feels these atypical cells could be from infection and not true malignancy * Decompensated in the overnight hours of 09/08- 6 was transferred to telemetry he has complete whiteout of the left lung attempts at thoracentesis were met without significant fluid production however the mist protocol be undertaken to try to lyse adhesions and try to have some fluid dilute from the chest * 09/06 CT Chest w/o -- small right and moderate to large left pleural effusions. mild dependent subsegmental right basilar atelectasis with compressive atelectasis of the left upper lobe and lingula. Near complete consolidation/collapse of the left lower lobe. Small pericardial effusion with new mild stranding within the mediastinal fat and epicardium, likely related to fluid overload. 5 mm groundglass nodule of the right lung apex. * chest tube placement and MIST protocol -- 09/09 has had good output but has been painful * Cough productive of clear sputum per patient, He completed 7 days with Zosyn on 09/01 * Currently on nc (2) Candidemia: * 1 of four blood cultures growing domenico glabrata complex. * ID consulted - ALONDRA without vegetations noted * Repeat blood cultures 09/07 * Pulm recommending sensitivities due to increased resistances. Discussed with lab and they were sent to [facility] 09/05 * Pleural blood urea pending given possibility of urothorax. Also added pleural cr but is a send out as well and will take several days * Patient will need two weeks of caspofungin from last positive blood culture. 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 * Completed 7 days of Zosyn (5) Elevated troponin: * No angina, did have 2 echos last admission( one that was ALONDRA) with preserved EF, continuing metoprolol. Resumed hydralazine and amlodipine as pressures had been increasing * Trop 0.074 on admission and essentially unchanged x2 after admission * Trop 12/29/19 at 0.094, likely chronically elevated in the setting of CKD IV * Trop unchanged on repeat. EKG unchanged. Pacemaker functioning. Pt also with small pericardial effusion on CT 09/06 (6) COPD (chronic obstructive pulmonary disease): * Home symbicort, Spiriva * No further prednisone -- received 40 mg x 5 days (7) Chronic pancreatitis: * has no complaints of abd pain, will continue creon (8) Insulin-requiring or dependent type II diabetes mellitus: * Pt required iv insulin gtt initially but is now on subq insulin. Managed by pharmacy * A1c 6.6 (9) Hypothyroidism (acquired): * synthroid 88 mcg was recently increased to [facility]mcg by [facility], however states this was not started yet * Dose adjusted 08/27 * Continue 100mcg daily (10) Smoker: * nicotine patch discontinued (11) Abnormal finding on urinalysis: * 3+ leuk est, neg nitrites, yeast noted * Urine cx mixed skin nu - dc'd dapto (12) Positive blood culture: * As above (13) History of nephrostomy: * Removed 08/04 but with increasing urine drainage. Urology consulted - Does not recommend suturing closed. May upsize his ureteral stent later this week This was delayed at this point time his respiratory status makes him difficult to take to the operating room (14) Hyponatremia: * Resolved. Na 138 (15) Constipation: * Resolved (16) Hyperphosphatemia: * Sevelamer 800mg BID per nephrology. Improved on labs. * Continue to monitor (17) Chest pain: * Reported on morning of 09/06 wax/waning, sharp/stabbing. pain now seems musculasleletal * EKG with atrial paced rhythm with prolonged AV conduction, non-specific intraventricular block. Electronic atrial pacemaker has replaced electronic ventricular pacemaker and ventricular rate decreased by 83bpm * Troponin unchanged from 08/25 -- likely related to his CKD as well as pericardial effusion/volume overload * chest pain from chest tube at present (18) DVT prophylaxis: * Restart heparin subcu Pt states that the [facility] has been working to get him approved for a wheelchair for use when away from home PT/OT - recommending rehab but patient is refusing. Family not feeling that they would be able to take him home at this point but will continue to assess progress. Attempting to find some caregivers to come in for a few hours each day Mr. Morales has multiple issues at hand with severe deconditioning and poor nutritional status. His prognosis is poor at this point. Evaluated by palliative care 09/05 -- plans to treat current state and possibly move forward with skilled with transition to hospice at discharge if able Will reach out for further discussion if patient continues to decline interventions Admission and Anticipated Discharge Date Admission Date: August 25, 2020 Subjective Patient was bit unhappy and grumpy he is was having significant chest discomfort associate with drainage of his chest tube. He did have good output with instillation of TPA and Pulmozyme however he did have significant pain with this. He is on nasal cannula oxygen at this point time but in discomfort test x-ray has improved aeration of his left lung Review of Systems Review of Systems: Moderate distress and fatigue no headache, blurry or double vision no speech or swallowing issues no chest pain, pressure or palpitations shortness of breath at rest no abdominal pain, nausea or vomiting, diarrhea or constipation no focal joint pain does have lower extremity swelling lower back pain, no radicular pain no bruising, bleeding or rashes no focal signs of weakness or numbness or altered sensation no complaints of anxiety or depression. Physical Exam Physical Exam: The patient appeared chronically ill and in moderate distress Vital signs as documented. Soon his blood pressure slightly low he is tachypneic Head exam is normocephalic atraumatic no scleral icterus Neck trachea is midline Lungs are overall diminished breath sounds no focal loss no wheezes no particularly prolonged expiratory phase Cardiac exam, Rhythm is regular.. No murmurs, rubs or gallops. Abdominal exam reveals normal bowel sounds, soft slightly distended Extremities are trace edema if anything he has a raise on his left leg from foot drop which is pre-existing condition Neurologic exam is alert and oriented, no focal loss of strength or sensation session of left foot drop Skin is without bruises or rashes Psychologically is without concerns for anxiety or depression. Results & Data Results & Data ([facility]) Vital Signs (Past 12 Hours) Vital Signs Temp Pulse Resp BP Pulse Ox 09/10/20 03:59 98.6 F 60 18 108/54 L 90 09/09/20 23:45 98.6 F 60 19 137/69 91 09/09/20 20:13 98.1 F 60 18 156/58 H 94 PG Care Time/CCT Total # of Minutes Spent Total Time Spent with Patient: Total time spent is greater than 50% in coordination of care (as documented) at patient's floor/unit and/or counseling patient: Coding Level of Care Code 16459 Subseq Hosp Care Lvl 3 Diagnoses Acute respiratory failure with hypoxia J96.01 Candidemia B37.7 CKD (chronic kidney disease) N18.9 LLL pneumonia J18.9 Pneumonia type: due to unspecified organism Elevated troponin R77.8 COPD (chronic obstructive pulmonary disease) J44.9 COPD type: unspecified COPD Chronic pancreatitis K86.1 Pancreatitis type: unspecified pancreatitis type Insulin-requiring or dependent type II diabetes mellitus E11.9; Z79.4 Hypothyroidism (acquired) E03.9 Smoker F17.200 Abnormal finding on urinalysis R82.90 Positive blood culture R78.81 History of nephrostomy Hyponatremia E87.1 Constipation K59.00 Hyperphosphatemia E83.39 Chest pain R07.9 DVT prophylaxis Z29.9 (1) Chronic pancreatitis Pancreatitis type: unspecified pancreatitis type Qualified Code(s): K86.1 - Other chronic pancreatitis (2) COPD (chronic obstructive pulmonary disease) COPD type: unspecified COPD Qualified Code(s): J44.9 - Chronic obstructive pulmonary disease, unspecified (3) LLL pneumonia Pneumonia type: due to unspecified organism Qualified Code(s): J18.9 - Pneumonia, unspecified organism
--- NOTE | 2020-09-10 07:35 | XRay Report ---
XR chest 1V portable CLINICAL HISTORY: f/u COMPARISON STUDY: Chest radiograph September 09, 2020 at 2:00 PM. FINDINGS: A dual-lead left pacer is noted. A left basilar pleural pigtail catheter is noted. This has been partially withdrawn. There is no pneumothorax. Left lung aeration has improved since exam of No vember 2019 at 2:00 PM although volume loss persists with asymmetric left lung airspace opacity an d a suspected small pleural effusion. IMPRESSION: 1. Improved aeration of the left lung. Persistent left lung volume loss with airspace opacity and a s uspected small left pleural effusion. 2. Left basilar pleural pigtail catheter in place although partially withdrawn. ACT 112: Negative or not required by law. Electronically signed by: Christian Brito M.D. 09/10/2020 7:33 AM
[2020-09-10 08:10] LABS: Hemoglobin 9.7 g/dL (14.0-18.0); Mean Corpuscular Hemoglobin 29.4 pg (25-34); Mean Corpuscular Hgb Conc 30.3 g/dL (32-36); Mean Platelet Volume 8.9 fL (7.4-10.4); Platelet Count 376 K/uL (130-400); RDW Coefficient of Variation 17.2 % (11.5-14.5); White Blood Count 13.35 K/uL (4.8-10.8)
[2020-09-10 09:06] LABS: Albumin Level 1.6 gm/dl (3.4-5.0); BUN Creatinine Ratio 7.6 (10-20); Calcium 8.5 mg/dl (8.5-10.1); Creatinine Clr Calc Pharmacy 16.1 ml/min; Est GFR (African American) 12.4; Est GFR (Non-African American) 10.7; Phosphorus 6.2 mg/dl (2.5-4.9); Potassium 4.8 mmol/L (3.5-5.1)
[2020-09-10] MEDS: NEPHROCAPS PO SCH (09:36)
[2020-09-10] MEDS: PANCREAZE (LIPASE 10,500U) CAP PO SCH ×3 (09:36→17:32)
[2020-09-10] MEDS: LEVOTHYROXINE SODIUM 100 MCG TABLET PO SCH (09:36)
[2020-09-10] MEDS: TAMSULOSIN HCL 0.4 MG CAP PO SCH (09:37)
[2020-09-10] MEDS: SEVELAMER HCL 800 MG TABLET PO SCH ×3 (09:37→17:32)
[2020-09-10] MEDS: GABAPENTIN 300 MG CAP PO SCH (09:39)
[2020-09-10] MEDS: UMECLIDINIUM BROMIDE 62.5MCG/BLISTER 7 PUFFS/INHALER INH SCH (09:39)
[2020-09-10] MEDS: INSULIN ASPART 100 UNITS/ML 3 ML PEN SC SCH ×4 (09:44→21:03)
[2020-09-10] MEDS: INSULIN GLARGINE SOLOSTAR 100 UNITS/ML 3 ML PEN SC SCH ×2 (09:47→21:02)
[2020-09-10] MEDS: MoRPHine SULFATE 2 MG/ML CARP IV PRN ×2 (10:13→15:28)
--- NOTE | 2020-09-10 11:01 | Nephrology Progress Note ---
Date of Service September 10, 2020 Assessment & Plan (1) ESRD needing dialysis: * ESRD on TTS HD schedule * Patient is nonoliguric. He was net - 1600cc overnight. Electrolyte balance is acceptable * Will limit HD to 2 hours today due to chest tube discomfort. No heparin will be given (2) Anemia: * Venofer completed during recent admission * Epogen provided Q Saturday as inpatient. Hgb stable (3) Candidemia: * On caspofungin (4) Goals of care, counseling/discussion: * Ongoing conversation. Underwent chest tube placement to improve his respiratory status * Loculated L pleural effusion. Awaiting culture and cytology results * Await further input from ID, Pulmonology and Palliative Care Admission and Anticipated Discharge Date Admission Date: August 25, 2020 Subjective Mr. Morales was seen & examined in his hospital room this morning. He underwent L chest tube placement yesterday. L pleural effusion is loculated. It is very uncomfortable for Mr. Morales to take in a deep breath. He will agree to only 2 hours HD today due to his discomfort Review of Systems Constitutional: + weakness Eyes: no problem reported Ear, Nose, Mouth, Throat: no problem reported Respiratory: + dyspnea and + pain on inspiration Cardiovascular: + chest pain Gastrointestinal: no abdominal pain, no nausea and no diarrhea/loose stools Integumentary: no rash Neurologic: no dizziness Physical Exam Constitutional: + ill appearing Eyes: PERRL, conjunctivae normal, anicteric sclerae ENMT: external ear and nose normal, oropharynx normal Neck: trachea midline, no thyromegaly Respiratory: no respiratory distress Cardiovascular: RRR, no murmur, no edema Gastrointestinal (Abdomen): normal bowel sounds, soft, nontender, no hepatosplenomegaly Musculoskeletal: Extremities: no cyanosis Skin: no rashes, warm and dry Neurologic: awake; not confused Results & Data ([facility]) Vital Signs (Past 12 Hours) Vital Signs Temp Pulse Pulse Resp BP BP Pulse Ox 09/10/20 10:20 60 120/55 L 09/10/20 10:00 60 124/58 L 09/10/20 09:40 62 125/59 L 09/10/20 09:20 60 138/62 09/10/20 09:00 60 143/65 H 09/10/20 08:47 36.6 C 60 60 137/67 09/10/20 07:27 37.0 C 60 21 141/62 H 93 09/10/20 03:59 37.0 C 60 18 108/54 L 90 09/09/20 23:45 37.0 C 60 19 137/69 91 Laboratory Results Laboratory Tests 09/10/20 09/10/20 07:50 07:50 WBC 13.35 H Hgb 9.7 L Hct 32.0 L Plt Count 376 Sodium 137 Potassium 4.8 Chloride 99 Carbon Dioxide 26 BUN 38 H Creatinine 4.99 H* Glucose 139 H Phosphorus 6.2 H PG Care Time/CCT Total # of Minutes Spent Total Time Spent with Patient: Total time spent is greater than 50% in coordination of care (as documented) at patient's floor/unit and/or counseling patient: Coding Level of Care Code 31691 Subseq Hosp Care Lvl 3 Diagnoses ESRD needing dialysis N18.6; Z99.2 Anemia D64.9 Candidemia B37.7 Goals of care, counseling/discussion Z71.89
--- NOTE | 2020-09-10 11:38 | Pulmonology Progress Note ---
Date of Service September 10, 2020 Assessment & Plan (1) Pleural effusion on left: This is a 74-year-old male admitted to the hospital 08/25/2020 because of shortness of breath. He was negative for coronavirus 2 weeks ago. 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 Consult was placed because of white out of left side of thorax. Patient had thoracentesis performed 09/04/2020 and again on 09/06/2020. Fluid was exudative per laboratory findings. Pathology on first sample from 09/04/2020 consistent with atypical cells. Pathology pending on second sample from 09/06/2020. --Opacification of the left hemithorax From large complex pleural effusion given fibrillation appreciated in the effusion Status post thoracentesis 09/04/2020, removal of 2.2L dark yellow fluid. Exudative as per lights criteria Repeat thoracentesis 09/06/2020, removal of 900 mL melvin fluid. Again exudative, pH of 7.27 S/p pigtail catheter placement 09/09/2020 --> on Mist protocol 09/05/2020 Pleural fluid:- Protein 3.3, LDH 156, pH 7.64, glucose 108 09/05/2020 Serum:- Protein 6, LDH 211 09/06/2020: Protein 3.2, LDH 169, glucose 125, pH 7.27 09/06/2020: Protein 6.1, LDH 234 Follow-up culture --> no growth to date Given the history of obstructive kidney failure. Possibility of Urothorax is also there. Follow-up fluid urea Cytology from 09/05/2020 is positive for atypical cells. Repeat cytology 09/06/20 showed only inflammatory cells --COPD Not on any inhalers at home. Continue with Incruse on a daily basis. Will benefit from PFTs as an outpatient. --Candidemia On caspofungin, recommend following up sensitivities because of increasing resistance Difficult to treat especially given that the patient has pacemaker as well Treatment as per primary team Plan: Chest x-ray from today shows improvement in the left-sided pleural effusion. Chest tube is retracted little bit but still in place. I will repeat a chest x- ray to make sure it is still in place. On mist protocol patient put out approximately 3 L so far. Patient is complaining of left-sided chest pain. Give the patient morphine as needed. The patient gets drowsy on morphine and put him on BiPAP with a backup rate. Please note the above document was generated using voice recognition software. It may contain grammatical, syntax or spelling errors.Any formal questions or concerns about the content, text or information contained within the body of this dictation should be directly addressed to the provider for clarification. (2) COPD (chronic obstructive pulmonary disease): COPD type: unspecified COPD Qualified Code(s): J44.9 - Chronic obstructive pulmonary disease, unspecified (3) Acute respiratory failure with hypoxia: Admission and Anticipated Discharge Date Admission Date: August 25, 2020 Subjective Patient seen and examined at bedside. Shortness of breath is improved. But complains of pain on the left side. This is most likely because of the mass protocol. No nausea or vomiting. Patient was getting dialyzed the time of examination. Review of Systems Review of Systems: All systems reviewed & are unremarkable except as noted in Subjective Physical Exam Physical Exam: Constitutional: No acute distress HEENT: EOMI, PERRLA Respiratory system: Decreased air entry on the left side, positive crackles bilateral lower lobes, no wheeze, no rhonchi CVS: S1-S2 positive Abdomen: Soft, nontender, nondistended, positive bowel sounds x4, obese Extremities: +2 pulses bilaterally radialis/ dorsalis pedis, no cyanosis, +1 edema bilateral lower extremity, right arm aVF Neuro: Awake alert oriented x3 Psych: Normal mood and affect G/U: No Tyler Positive left-sided chest tube, dressing in place Skin: no rashes, warm and dry Lymphatic: no cervical or axillary lymphadenopathy Results & Data Results & Data ([facility]) Vital Signs (Past 12 Hours) Vital Signs Temp Pulse Pulse Resp BP BP Pulse Ox 09/10/20 10:40 60 131/57 L 09/10/20 10:20 60 120/55 L 09/10/20 10:00 60 124/58 L 09/10/20 09:40 62 125/59 L 09/10/20 09:20 60 138/62 09/10/20 09:00 60 143/65 H 09/10/20 08:47 36.6 C 60 60 137/67 09/10/20 07:27 37.0 C 60 21 141/62 H 93 09/10/20 03:59 37.0 C 60 18 108/54 L 90 09/09/20 23:45 37.0 C 60 19 137/69 91 09/10/20 07:50 09/10/20 07:50 PG Care Time/CCT Total # of Minutes Spent Total Time Spent with Patient: Total time spent is greater than 50% in coordina tion of care (as documented) at patient's floor/unit and/or counseling patient: Coding Level of Care Code 63475 Subseq Hosp Care Lvl 3 Diagnoses Pleural effusion on left J90 COPD (chronic obstructive pulmonary disease) J44.9 COPD type: unspecified COPD Acute respiratory failure with hypoxia J96.01
[2020-09-10] MEDS: CASPOFUNGIN 50 MG in SODIUM CHLORIDE 0.9% 250 ML IV SCH (12:21)
[2020-09-10] MEDS: hydrALAZINE 10 MG TAB PO SCH ×2 (12:21→21:02)
[2020-09-10] MEDS: METOPROLOL TARTRATE 25 MG TAB PO SCH ×2 (12:23→21:03)
[2020-09-10] MEDS: DOCUSATE SODIUM 100 MG CAP PO SCH ×2 (12:23→21:02)
[2020-09-10] MEDS: amLODIPine BESYLATE 5 MG TAB PO SCH (12:23)
--- NOTE | 2020-09-10 15:13 | XRay Report ---
XR chest 1V portable CLINICAL HISTORY: Abnormal chest x-ray. Follow-up study. COMPARISON STUDY: 09/10/2020 FINDINGS: There is a left subclavian dual-chamber central venous pacemaker present. There is a left b asilar pleural pigtail catheter. There is a small basilar pneumothorax. There are persistent left alexandro g airspace opacities with left lower lobe atelectasis/consolidation.[ IMPRESSION: 1. Persistent left pleural effusion/thickening 2. Persistent left lung airspace opacities with left lower lobe atelectasis/consolidation 3. Left basilar pleural pigtail catheter. Small left basilar pneumothorax ACT 112: Negative or not required by law. Electronically signed by: Bethel Cardoso M.D. 09/10/2020 3:12 PM
--- NOTE | 2020-09-10 19:44 | CT Scan Report ---
CT head/brain wo con CLINICAL HISTORY: Facial drooping. Slurred speech. Possible acute stroke. COMPARISON STUDY: No previous studies for comparison. TECHNIQUE: Axial CT of the brain is performed from the vertex to the skull base. IV contrast was not administered for this examination. A dose lowering technique was utilized adhering to the principles of ALARA. CT DOSE: 614.27 mGy.cm FINDINGS: No intra or extra-axial mass lesions are visualized. There is no CT evidence of acute cortical infarc tion. There is no evidence of midline shift. There is no acute hemorrhage. No calvarial fractures ar e visualized. There are patchy white matter hypodensities likely on a small vessel basis. There is no evidence of pathologic ventricular dilatation. There is a small left mastoid effusion. IMPRESSION: No acute intracranial findings ACT 112: Negative or not required by law. Electronically signed by: Bethel Cardoso M.D. 09/10/2020 7:43 PM
--- NOTE | 2020-09-10 20:34 | Communication Note ---
Date of Service: September 10, 2020 Overhead stroke alert called for pt, presented to bedside to evaluate at ~1930. Pt with new L facial droop, some slurred speech. NIHSS 2, no other deficits. Glucose 106, send to emergent CT-noncon which showed old lacunar but no new ischemia and no new changes. Case reported to telestroke [facility] who saw virtually via console 2. Pt with no clinical change post CT. Last known well 6pm. VSS (HR 60, BP ~118/60). 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 Pt started on aspirin. TPA not recommended at this time. Monitor on PCU unless pressure support required to maintain systolic >100 in which case would require transfer to ICU. Continue to follow at this time.
[2020-09-10] MEDS: ASPIRIN 81 MG ECTAB PO SCH (22:31)
[2020-09-11] MEDS: ALTEPLASE, RECOMBINANT 10 MG in SYRINGE 50 ML IPL SCH ×2 (02:54→15:19)
[2020-09-11] MEDS: MoRPHine SULFATE 2 MG/ML CARP IV PRN ×2 (03:57→14:34)
[2020-09-11] MEDS: DORNASE ALFA 5 ML in SYRINGE 25 ML IPL SCH ×2 (03:59→16:17)
[2020-09-11] MEDS: NITROGLYCERIN 2% OINTMENT 30GM TUBE EXT SCH ×3 (05:55→12:43)
[2020-09-11] MEDS: LEVOTHYROXINE SODIUM 100 MCG TABLET PO SCH (05:56)
--- NOTE | 2020-09-11 07:15 | XRay Report ---
XR chest 1V portable CLINICAL HISTORY: f/u COMPARISON STUDY: Chest radiograph September 10, 2020 at 2:51 PM. FINDINGS: Dual-lead left subclavian pacemaker is in place. Small left pleural effusion is noted. Left basilar opacity persists. A small left apical pneumothorax is noted. The basilar component has decre ased. Left lung aeration has slightly improved. Cardiomediastinal silhouette is stable. IMPRESSION: 1. Extensive left lung airspace opacity with volume loss. Left lung aeration slightly improved since prior exam. 2. Left basilar pleural pigtail catheter in place. Small left pleural effusion. Small left pneumothor ax. ACT 112: Negative or not required by law. Electronically signed by: Christian Brito M.D. 09/11/2020 7:14 AM
[2020-09-11 07:32] LABS: BUN Creatinine Ratio 7.5 (10-20); Calcium 8.5 mg/dl (8.5-10.1); Creatinine Clr Calc Pharmacy 19.6 ml/min; Est GFR (African American) 15.8; Est GFR (Non-African American) 13.6; Potassium 5.1 mmol/L (3.5-5.1)
[2020-09-11 07:41] LABS: Hematocrit (blood only) 32.2 % (42-52); Hemoglobin 9.4 g/dL (14.0-18.0); Mean Corpuscular Hemoglobin 28.6 pg (25-34); Mean Corpuscular Hgb Conc 29.2 g/dL (32-36); Mean Corpuscular Volume 97.9 fL (80-100); Mean Platelet Volume 9.5 fL (7.4-10.4); Platelet Count 366 K/uL (130-400); RDW Coefficient of Variation 17.3 % (11.5-14.5); RDW Standard Deviation 60.8 fL (36.4-46.3); Red Blood Count 3.29 M/uL (4.7-6.1)
[2020-09-11] MEDS: INSULIN ASPART 100 UNITS/ML 3 ML PEN SC SCH ×4 (07:44→21:56)
[2020-09-11] MEDS: PANCREAZE (LIPASE 10,500U) CAP PO SCH ×3 (07:47→18:07)
[2020-09-11] MEDS: SEVELAMER HCL 800 MG TABLET PO SCH ×3 (07:47→18:07)
[2020-09-11] MEDS: CASPOFUNGIN 50 MG in SODIUM CHLORIDE 0.9% 250 ML IV SCH (08:42)
[2020-09-11] MEDS: DOCUSATE SODIUM 100 MG CAP PO SCH ×2 (08:42→19:45)
[2020-09-11] MEDS: amLODIPine BESYLATE 5 MG TAB PO SCH (08:44)
[2020-09-11] MEDS: UMECLIDINIUM BROMIDE 62.5MCG/BLISTER 7 PUFFS/INHALER INH SCH (08:44)
[2020-09-11] MEDS: NEPHROCAPS PO SCH (08:44)
[2020-09-11] MEDS: GABAPENTIN 300 MG CAP PO SCH (08:44)
[2020-09-11] MEDS: ASPIRIN 81 MG ECTAB PO SCH (08:44)
[2020-09-11] MEDS: TAMSULOSIN HCL 0.4 MG CAP PO SCH (08:44)
[2020-09-11] MEDS: INSULIN GLARGINE SOLOSTAR 100 UNITS/ML 3 ML PEN SC SCH ×2 (08:45→21:55)
--- NOTE | 2020-09-11 08:45 | Hospitalist Progress Note ---
Date of Service September 11, 2020 Assessment & Plan (1) Facial droop: This patient had a facial droop on the evening of 09/10 and stroke alert was called overhead, noncontrast CT scan showed no new changes MRI of the brain was ordered with MRA of the neck and MRA of the brain. I was notified in the morning these cannot be completed due to his cardiac pacemaker. The patient also has complete resolution of his symptoms. Patient was not a TPA candidate will perform CT of the brain on 09/12 to compare to be sure there was no missed CVA (2) Acute respiratory failure with hypoxia: * Complete opacification of the left lung on CXR 09/02 - secondary to large complex pleural effusion * Pulm consulted - Thoracentesis for 2.2L on 09/04 -- EXUDATIVE process. protein 3.3, LDH 156, pH 7.64H, glucose 108. Serum protein 6, LDH 211 * Pleural urea pending given possible urothorax. pleural cr send-out. * Thoracentesis 09/06 also exudative in appearance and drained 900cc. (2.2L on 09/04) * Body fluid slide with atypical cells present, cannot exclude malignancy. Cytology pending --> Rare atypical cells present. I personally spoke with pathology who feels these atypical cells could be from infection/inflammation and not true malignancy * Decompensated in the overnight hours of 09/08- 6 was transferred to telemetry due to complete whiteout of the left lung, thoracentesis resulted without significant fluid production -> Mist protocol 09/10/20 with good results * 09/06 CT Chest w/o -- small right and moderate to large left pleural effusions. mild dependent subsegmental right basilar atelectasis with compressive at electasis of the left upper lobe and lingula. Near complete consolidation/collapse of the left lower lobe. Small pericardial effusion with new mild stranding within the mediastinal fat and epicardium, likely related to fluid overload. 5 mm groundglass nodule of the right lung apex. * chest tube placement and MIST protocol -- 09/09 has had good output but has been painful- continues with output and clearing CXR 09/11/20 * Cough productive of clear sputum per patient, He completed 7 days with Zosyn on 09/01 * Currently on nc (3) Candidemia: * 1 of four blood cultures growing domenico glabrata complex. * ID consulted - ALONDRA without vegetations noted * Repeat blood cultures 09/07 * Pulm recommending sensitivities due to increased resistances. Discussed with lab and they were sent to [facility] 09/05 * Pleural blood urea pending given possibility of urothorax. Also added pleural cr but is a send out as well and will take several days * Patient will need two weeks of caspofungin from last positive blood culture. 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 * Completed 7 days of Zosyn (6) Elevated troponin: * No angina, did have 2 echos last admission( one that was ALONDRA) with preserved EF, continuing metoprolol. Resumed hydralazine and amlodipine as pressures had been increasing * Trop 0.074 on admission and essentially unchanged x2 after admission * Trop 12/29/19 at 0.094, likely chronically elevated in the setting of CKD IV * Trop unchanged on repeat. EKG unchanged. Pacemaker functioning. Pt also with small pericardial effusion on CT 09/06 * Change Nitropaste to isosorbide on 09/11 patient's had no further chest pain (7) COPD (chronic obstructive pulmonary disease): * Home symbicort, Spiriva * No further prednisone -- received 40 mg x 5 days (8) Chronic pancreatitis: * has no complaints of abd pain, will continue creon (9) Insulin-requiring or dependent type II diabetes mellitus: * Pt required iv insulin gtt initially but is now on subq insulin. Managed by pharmacy * A1c 6.6 (10) Hypothyroidism (acquired): * synthroid 88 mcg was recently increased to 100mcg by [facility], however states this was not started yet * Dose adjusted 08/27 * Continue 100mcg daily (11) Smoker: * nicotine patch discontinued (12) Abnormal finding on urinalysis: * 3+ leuk est, neg nitrites, yeast noted * Urine cx mixed skin nu - dc'd dapto (13) Positive blood culture: * As above (14) History of nephrostomy: * Removed 08/04 but with increasing urine drainage. Urology consulted - Does not recommend suturing closed. May upsize his ureteral stent later this week This was delayed at this point time his respiratory status makes him difficult to take to the operating room (15) Hyponatremia: * Resolved. Na 138 (16) Constipation: * Resolved (17) Hyperphosphatemia: * Sevelamer 800mg BID per nephrology. Improved on labs. * Continue to monitor (18) Chest pain: * Reported on morning of 09/06 wax/waning, sharp/stabbing. pain now seems musculasleletal * EKG with atrial paced rhythm with prolonged AV conduction, non-specific intraventricular block. Electronic atrial pacemaker has replaced electronic ventricular pacemaker and ventricular rate decreased by 83bpm * Troponin unchanged from 08/25 -- likely related to his CKD as well as pericardial effusion/volume overload * chest pain from chest tube at present (19) DVT prophylaxis: * Patient has refused heparin subcutaneously will use SCDs is a poor second choice given his multiple comorbidities and inflammatory issues Pt states that the [place] has been working to get him approved for a wheelchair for use when away from home PT/OT - recommending rehab but patient is refusing. Family not feeling that they would be able to take him home at this point but will continue to assess progress. Attempting to find some caregivers to come in for a few hours each day Mr. Morales has multiple issues at hand with severe deconditioning and poor nutritional status. His prognosis is poor at this point. Evaluated by palliative care 09/05 -- plans to treat current state and possibly move forward with skilled with transition to hospice at discharge if able Will reach out for further discussion if patient continues to decline interventions Admission and Anticipated Discharge Date Admission Date: August 25, 2020 Subjective This patient had a difficult night having some facial droop and MRI scans were ordered however he cannot complete them due to incompatibility of his pacemaker. He also was very upset as he spoke with Dr. Daniels who is commenting about the atypical cells in his pleural fluid possibly being malignant. This is not yet been confirmed or refuted. His chest tube drainage continues to be significantly painful and bloody Review of Systems Review of Systems: Moderate distress and fatigue no headache, blurry or double vision no speech or swallowing issues no chest pain, pressure or palpitations shortness of breath at rest no abdominal pain, nausea or vomiting, diarrhea or constipation no focal joint pain does have lower extremity swelling lower back pain, no radicular pain no bruising, bleeding or rashes no focal signs of weakness or numbness or altered sensation no complaints of anxiety or depression. Physical Exam Physical Exam: The patient appeared chronically ill and in moderate distress Vital signs as documented. Soon his blood pressure slightly low he is tachypneic Head exam is normocephalic atraumatic no scleral icterus Neck trachea is midline Lungs are overall diminished breath sounds no focal loss no wheezes no particularly prolonged expiratory phase Cardiac exam, Rhythm is regular.. No murmurs, rubs or gallops. Abdominal exam reveals normal bowel sounds, soft slightly distended Extremities are trace edema if anything he has a raise on his left leg from foot drop which is pre-existing condition Neurologic exam is alert and oriented, no focal loss of strength or sensation session of left foot drop Skin is without bruises or rashes Psychologically is without concerns for anxiety or depression. Results & Data Results & Data ([facility]) Vital Signs (Past 12 Hours) Vital Signs Temp Pulse Pulse Resp BP Pulse Ox 09/11/20 07:56 98.6 F 60 18 123/60 92 09/11/20 07:30 60 09/11/20 03:13 98.4 F 60 19 144/58 H 91 09/10/20 22:28 98.4 F 60 18 126/57 L 94 PG Care Time/CCT Total # of Minutes Spent Total Time Spent with Patient: Total time spent is greater than 50% in coordination of care (as documented) at patient's floor/unit and/or counseling patient: Coding Level of Care Code 77059 Subseq Hosp Care Lvl 3 Diagnoses Facial droop R29.810 Acute respiratory failure with hypoxia J96.01 Candidemia B37.7 CKD (chronic kidney disease) N18.9 LLL pneumonia J18.9 Pneumonia type: due to unspecified organism Elevated troponin R77.8 COPD (chronic obstructive pulmonary disease) J44.9 COPD type: unspecified COPD Chronic pancreatitis K86.1 Pancreatitis type: unspecified pancreatitis type Insulin-requiring or dependent type II diabetes mellitus E11.9; Z79.4 Hypothyroidism (acquired) E03.9 Smoker F17.200 Abnormal finding on urinalysis R82.90 Positive blood culture R78.81 History of nephrostomy Hyponatremia E87.1 Constipation K59.00 Hyperphosphatemia E83.39 Chest pain R07.9 DVT prophylaxis Z29.9 (1) Chronic pancreatitis Pancreatitis type: unspecified pancreatitis type Qualified Code(s): K86.1 - Other chronic pancreatitis (2) COPD (chronic obstructive pulmonary disease) COPD type: unspecified COPD Qualified Code(s): J44.9 - Chronic obstructive pulmonary disease, unspecified (3) LLL pneumonia Pneumonia type: due to unspecified organism Qualified Code(s): J18.9 - Pneumonia, unspecified organism
[2020-09-11] MEDS: hydrALAZINE 10 MG TAB PO SCH ×2 (08:46→19:46)
[2020-09-11] MEDS: METOPROLOL TARTRATE 25 MG TAB PO SCH ×2 (08:46→19:47)
[2020-09-11] MEDS: HEPARIN SOD 5,000 UNIT/0.5 ML VIAL SQ SCH ×2 (08:59→19:46)
--- NOTE | 2020-09-11 10:26 | Nephrology Progress Note ---
Date of Service September 11, 2020 Assessment & Plan (1) ESRD needing dialysis: * ESRD on TTS HD schedule. Completed 2 hours HD yesterday for 1 L UF. No acute indication for HD today * Patient is nonoliguric. He was net - 1070cc overnight. Electrolyte balance is acceptable * Will reassess need for HD in am (2) Anemia: * Venofer completed during recent admission * Epogen provided Q Saturday as inpatient. Hgb stable (3) Candidemia: * On caspofungin (4) Goals of care, counseling/discussion: * Ongoing conversation. Underwent chest tube placement to improve his re spiratory status * Loculated L pleural effusion. Awaiting culture and cytology results * Await further input from ID, Pulmonology and Palliative Care Admission and Anticipated Discharge Date Admission Date: August 25, 2020 Subjective Mr. Morales was seen & examined in his hospital room this morning. He underwent L chest tube placement 09/09/20. L pleural effusion is loculated. It is very uncomfortable for Mr. Morales to take in a deep breath. He completed 2 hours HD yesterday for 1 L UF. Review of Systems Constitutional: + weakness Eyes: no problem reported Ear, Nose, Mouth, Throat: no problem reported Respiratory: + dyspnea and + pain on inspiration Cardiovascular: + chest pain Gastrointestinal: no abdominal pain, no vomiting and no diarrhea/loose stools Integumentary: no rash Neurologic: no confusion Physical Exam Constitutional: + ill appearing Eyes: PERRL, conjunctivae normal, anicteric sclerae ENMT: external ear and nose normal, oropharynx normal Neck: trachea midline, no thyromegaly Respiratory: no respiratory distress Cardiovascular: RRR, no murmur, no edema Gastrointestinal (Abdomen): normal bowel sounds, soft, nontender, no hepatosplenomegaly Musculoskeletal: Extremities: no cyanosis Skin: no rashes, warm and dry Neurologic: awake; not confused Results & Data ([facility]) Vital Signs (Past 12 Hours) Vital Signs Temp Pulse Pulse Resp BP Pulse Ox 09/11/20 07:56 37.0 C 60 18 123/60 92 09/11/20 07:30 60 09/11/20 03:13 36.9 C 60 19 144/58 H 91 09/10/20 22:28 36.9 C 60 18 126/57 L 94 Laboratory Results Laboratory Tests 09/11/20 09/11/20 06:35 06:35 WBC 11.80 H Hgb 9.4 L Hct 32.2 L Plt Count 366 Sodium 135 L Potassium 5.1 Chloride 102 Carbon Dioxide 23 BUN 31 H Creatinine 4.09 H D Glucose 114 H PG Care Time/CCT Total # of Minutes Spent Total Time Spent with Patient: Total time spent is greater than 50% in coordination of care (as documented) at patient's floor/unit and/or counseling patient: Coding Level of Care Code 99293 Subseq Hosp Care Lvl 3 Diagnoses ESRD needing dialysis N18.6; Z99.2 Anemia D64.9 Candidemia B37.7 Goals of care, counseling/discussion Z71.89
[2020-09-11 10:51] LABS: Iron 51 mcg/dl (35-175); Transferrin 98 mg/dl (200-360); Transferrin Percent Saturation 37 % (20-50)
--- NOTE | 2020-09-11 13:09 | Pulmonology Progress Note ---
Date of Service September 11, 2020 Assessment & Plan (1) Pleural effusion on left: This is a 74-year-old male admitted to the hospital 08/25/2020 because of shortness of breath. He was negative for coronavirus 2 weeks ago. 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 Consult was placed because of white out of left side of thorax. Patient had thoracentesis performed 09/04/2020 and again on 09/06/2020. Fluid was exudative per laboratory findings. Pathology on first sample from 09/04/2020 consistent with atypical cells. Pathology pending on second sample from 09/06/2020. --Opacification of the left hemithorax From large complex pleural effusion given fibrillation appreciated in the effusion Status post thoracentesis 09/04/2020, removal of 2.2L dark yellow fluid. Exudative as per lights criteria Repeat thoracentesis 09/06/2020, removal of 900 mL melvin fluid. Again exudative, pH of 7.27 S/p pigtail catheter placement 09/09/2020 --> on Mist protocol 09/05/2020 Pleural fluid:- Protein 3.3, LDH 156, pH 7.64, glucose 108 09/05/2020 Serum:- Protein 6, LDH 211 09/06/2020: Protein 3.2, LDH 169, glucose 125, pH 7.27 09/06/2020: Protein 6.1, LDH 234 Follow-up culture --> no growth to date Given the history of obstructive kidney failure. Possibility of Urothorax is also there. Follow-up fluid urea Cytology from 09/05/2020 is positive for atypical cells. Repeat cytology 09/06/20 showed only inflammatory cells --Pneumothorax Ex-vacuo On the left side likely this is from entrapment of the lung and it will open up gradually If it does not open up the need to be considered a trapped lung Monitor --COPD Not on any inhalers at home. Continue with Incruse on a daily basis. Will benefit from PFTs as an outpatient. --Candidemia On caspofungin, recommend following up sensitivities because of increasing re sistance Difficult to treat especially given that the patient has pacemaker as well Treatment as per primary team Plan: Chest x-ray from today did not show any significant change in the left-sided pleural effusion, pneumothorax ex vacuo is appreciated on the left side. Patient does have dense consolidation of the left lower lobe which was appreciated on the CAT scan. Incentive spirometry as well as flutter valve will be helpful right now. 1 more dose of MIST protocol left. Possible removal of the chest tube tomorrow or the day after based on the chest x-rays. Please note the above document was generated using voice recognition software. It may contain grammatical, syntax or spelling errors.Any formal questions or concerns about the content, text or information contained within the body of this dictation should be directly addressed to the provider for clarification. (2) COPD (chronic obstructive pulmonary disease): COPD type: unspecified COPD Qualified Code(s): J44.9 - Chronic obstructive pulmonary disease, unspecified (3) Acute respiratory failure with hypoxia: (4) Pneumothorax: Admission and Anticipated Discharge Date Admission Date: August 25, 2020 Subjective Patient seen and examined at bedside. No acute distress, no adverse events overnight. Patient is on MIST protocol. Patient has 1 more dose left tomorrow in the morning. Overall he states that the shortness of breath is better. No significant chest pain today. No headache, no dizziness, no nausea or vomiting. Review of Systems Review of Systems: All systems reviewed & are unremarkable except as noted in Subjective Physical Exam Physical Exam: Constitutional: No acute distress HEENT: EOMI, PERRLA Respiratory system: Decreased air entry on the left side, positive crackles bilateral lower lobes, no wheeze, no rhonchi CVS: S1-S2 positive Abdomen: Soft, nontender, nondistended, positive bowel sounds x4, obese Extremities: +2 pulses bilaterally radialis/ dorsalis pedis, no cyanosis, +1 edema bilateral lower extremity, right arm aVF Neuro: Awake alert oriented x3 Psych: Normal mood and affect G/U: No Tyler Positive left-sided chest tube, dressing in place Skin: no rashes, warm and dry Lymphatic: no cervical or axillary lymphadenopathy Results & Data Results & Data ([facility]) Vital Signs (Past 12 Hours) Vital Signs Temp Pulse Pulse Resp BP Pulse Ox 09/11/20 11:28 36.8 C 60 22 122/60 94 09/11/20 07:56 37.0 C 60 18 123/60 92 09/11/20 07:30 60 09/11/20 03:13 36.9 C 60 19 144/58 H 91 09/11/20 06:35 09/11/20 06:35 PG Care Time/CCT Total # of Minutes Spent Total Time Spent with Patient: Total time spent is greater than 50% in coordination of care (as documented) at patient's floor/unit and/or counseling patient: Coding Level of Care Code 22171 Subseq Hosp Care Lvl 3 Diagnoses Pleural effusion on left J90 COPD (chronic obstructive pulmonary disease) J44.9 COPD type: unspecified COPD Acute respiratory failure with hypoxia J96.01 Pneumothorax J93.9
[2020-09-11] MEDS: ISOSORBIDE MONONITRATE 20 MG TAB PO SCH ×2 (13:16→19:50)
[2020-09-11] MEDS: ACETAMINOPHEN 325 MG TAB PO PRN (14:33)
[2020-09-12] MEDS: ALTEPLASE, RECOMBINANT 10 MG in SYRINGE 50 ML IPL SCH (02:34)
[2020-09-12] MEDS: ACETAMINOPHEN 325 MG TAB PO PRN (03:44)
[2020-09-12] MEDS: DORNASE ALFA 5 ML in SYRINGE 25 ML IPL SCH (03:44)
[2020-09-12] MEDS: MoRPHine SULFATE 2 MG/ML CARP IV PRN (03:44)
[2020-09-12] MEDS: LEVOTHYROXINE SODIUM 100 MCG TABLET PO SCH (06:16)
--- NOTE | 2020-09-12 07:38 | XRay Report ---
XR chest 1V portable CLINICAL HISTORY: Respiratory difficulty. Abnormal chest x-ray. Follow-up study. COMPARISON STUDY: 09/11/2020 FINDINGS: There is a left basilar pleural pigtail catheter. There is a persistent small left-sided pn eumothorax. Left pleural fluid is also present. There are increasing left lung airspace opacities, an d there is evidence for progressive left lung volume loss. The right lung appears generally clear. Th ere is a left subclavian dual-chamber central venous pacemaker.[ IMPRESSION: 1. Persistent extensive left lung airspace opacity with progressive left lung volume loss. 2. No change in the position of the left basilar pleural pigtail catheter. Persistent small left pleu ral effusion. Persistent small left-sided pneumothorax ACT 112: Negative or not required by law. Electronically signed by: Bethel Cardoso M.D. 09/12/2020 7:37 AM
[2020-09-12 08:02] LABS: BUN Creatinine Ratio 7.6 (10-20); Calcium 8.5 mg/dl (8.5-10.1); Creatinine Clr Calc Pharmacy 14.1 ml/min; Est GFR (African American) 10.9; Est GFR (Non-African American) 9.4; Potassium 5.3 mmol/L (3.5-5.1)
[2020-09-12 08:03] LABS: Hematocrit (blood only) 29.8 % (42-52); Hemoglobin 8.8 g/dL (14.0-18.0); Mean Corpuscular Hemoglobin 28.5 pg (25-34); Mean Corpuscular Hgb Conc 29.5 g/dL (32-36); Mean Corpuscular Volume 96.4 fL (80-100); Mean Platelet Volume 9.4 fL (7.4-10.4); Platelet Count 387 K/uL (130-400); RDW Coefficient of Variation 17.2 % (11.5-14.5); RDW Standard Deviation 59.2 fL (36.4-46.3); Red Blood Count 3.09 M/uL (4.7-6.1); White Blood Count 14.17 K/uL (4.8-10.8)
[2020-09-12] MEDS: INSULIN ASPART 100 UNITS/ML 3 ML PEN SC SCH ×4 (08:11→21:57)
[2020-09-12] MEDS: UMECLIDINIUM BROMIDE 62.5MCG/BLISTER 7 PUFFS/INHALER INH SCH (08:12)
[2020-09-12] MEDS: HEPARIN SOD 5,000 UNIT/0.5 ML VIAL SQ SCH ×3 (08:13→23:19)
[2020-09-12] MEDS: INSULIN GLARGINE SOLOSTAR 100 UNITS/ML 3 ML PEN SC SCH ×2 (08:14→21:57)
[2020-09-12] MEDS: hydrALAZINE 10 MG TAB PO SCH ×2 (08:15→22:01)
[2020-09-12] MEDS: SEVELAMER HCL 800 MG TABLET PO SCH ×3 (08:15→17:18)
[2020-09-12] MEDS: ASPIRIN 81 MG ECTAB PO SCH (08:15)
[2020-09-12] MEDS: TAMSULOSIN HCL 0.4 MG CAP PO SCH (08:15)
[2020-09-12] MEDS: ISOSORBIDE MONONITRATE 20 MG TAB PO SCH ×2 (08:15→22:20)
[2020-09-12] MEDS: NEPHROCAPS PO SCH (08:15)
[2020-09-12] MEDS: amLODIPine BESYLATE 5 MG TAB PO SCH (08:15)
[2020-09-12] MEDS: GABAPENTIN 300 MG CAP PO SCH (08:15)
[2020-09-12] MEDS: PANCREAZE (LIPASE 10,500U) CAP PO SCH ×3 (08:16→17:18)
[2020-09-12] MEDS: METOPROLOL TARTRATE 25 MG TAB PO SCH ×2 (08:19→21:53)
--- NOTE | 2020-09-12 09:20 | Nephrology Progress Note ---
Date of Service September 12, 2020 Assessment & Plan (1) ESRD needing dialysis: * ESRD on TTS HD schedule. Completed 2 hours HD Saturday. Patient has been shortening treatments due to discomfort from chest tube and difficulty lying still * Potassium 5.3 this morning. Discussed HD today. Patient declined citing discomfort. He requests medical management of elevated potassium. He is agreeable to HD on Saturday as this is his regular day * Will schedule HD for am (2) Hyperkalemia: * Will provide one dose Furosemide and Patiromer this morning to lower serum potassium (3) Anemia: * Venofer completed during recent admission * Epogen provided Q Saturday as inpatient. Hgb stable (4) Candidemia: * On caspofungin (5) Goals of care, counseling/discussion: * Ongoing conversation. Underwent chest tube placement to improve his respiratory status * Loculated L pleural effusion. Awaiting culture and cytology results. * Yesterday patient questioned results of his pleural fluid. Explained that atypical cells were reported but no definitive diagnosis at this time * Await further input from ID, Pulmonology and Palliative Care Admission and Anticipated Discharge Date Admission Date: August 25, 2020 Subjective Mr. Morales was seen & examined in his hospital room this morning. He remains uncomfortable due to his chest tube. He also c/o discomfort lying still and requires frequent repositioning Review of Systems Constitutional: + weakness Eyes: no problem reported Ear, Nose, Mouth, Throat: no problem reported Respiratory: + pain on inspiration Cardiovascular: + chest pain Gastrointestinal: no abdominal pain, no vomiting and no diarrhea/loose stools Musculoskeletal: no back pain Integumentary: no rash Neurologic: no confusion Physical Exam Constitutional: + ill appearing Eyes: PERRL, conjunctivae normal, anicteric sclerae ENMT: external ear and nose normal, oropharynx normal Neck: trachea midline, no thyromegaly Respiratory: no respiratory distress Cardiovascular: RRR, no murmur, no edema Gastrointestinal (Abdomen): normal bowel sounds, soft, nontender, no hepatosplenomegaly Musculoskeletal: Extremities: no cyanosis Skin: no rashes, warm and dry Neurologic: awake; not confused Results & Data ([facility]) Vital Signs (Past 12 Hours) Vital Signs Temp Pulse Pulse Resp BP Pulse Ox 09/12/20 07:30 60 09/12/20 07:26 36.7 C 60 20 126/62 91 09/12/20 04:00 36.6 C 60 16 106/56 L 91 09/12/20 00:18 36.5 C 60 19 125/64 94 09/11/20 23:44 60 Laboratory Results Laboratory Tests 09/12/20 09/12/20 07:17 07:17 WBC 14.17 H Hgb 8.8 L Hct 29.8 L Plt Count 387 Sodium 133 L Potassium 5.3 H Chloride 102 Carbon Dioxide 24 BUN 42 H Creatinine 5.57 H* D Glucose 121 H PG Care Time/CCT Total # of Minutes Spent Total Time Spent with Patient: Total time spent is greater than 50% in coordination of care (as documented) at patient's floor/unit and/or counseling patient: Coding Level of Care Code 90284 Subseq Hosp Care Lvl 3 Diagnoses ESRD needing dialysis N18.6; Z99.2 Hyperkalemia E87.5 Anemia D64.9 Candidemia B37.7 Goals of care, counseling/discussion Z71.89
[2020-09-12] MEDS ORDERED: PATIROMER CALCIUM SORBITEX 8.4 GM PACK PO ONE (09:30)
[2020-09-12] MEDS ORDERED: FUROSEMIDE 40 MG in SYRINGE 0 ML IV ONE (09:30)
--- NOTE | 2020-09-12 09:41 | Pulmonology Progress Note ---
Date of Service September 12, 2020 Assessment & Plan (1) Pleural effusion on left: This is a 74-year-old male admitted to the hospital 08/25/2020 because of shortness of breath. He was negative for coronavirus 2 weeks ago. 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 Consult was placed because of white out of left side of thorax. Patient had thoracentesis performed 09/04/2020 and again on 09/06/2020. Fluid was exudative per laboratory findings. Pathology on first sample from 09/04/2020 consistent with atypical cells. Second cytology sample with evidence of atypical cells, but no malignancy. Third cytology sample is pending. --Opacification of the left hemithorax From large complex pleural effusion given fibrillation appreciated in the effusion Status post thoracentesis 09/04/2020, removal of 2.2L dark yellow fluid. Exudative as per lights criteria Repeat thoracentesis 09/06/2020, removal of 900 mL melvin fluid. Again exudative, pH of 7.27 S/p pigtail catheter placement 09/09/2020 --> on Mist protocol 09/05/2020 Pleural fluid:- Protein 3.3, LDH 156, pH 7.64, glucose 108 09/05/2020 Serum:- Protein 6, LDH 211 09/06/2020: Protein 3.2, LDH 169, glucose 125, pH 7.27 09/06/2020: Protein 6.1, LDH 234 Follow-up culture --> no growth to date Given the history of obstructive kidney failure. Possibility of Urothorax is also there. Follow-up fluid urea Cytology from 09/05/2020 is positive for atypical cells. Repeat cytology 09/06/20 showed only inflammatory cells --Pneumothorax Ex-vacuo On the left side likely this is from entrapment of the lung and it will open up gradually If it does not open up the need to be considered a trapped lung Monitor --COPD Not on any inhalers at home. Continue with Incruse on a daily basis. Will benefit from PFTs as an outpatient. --Candidemia On caspofungin, recommend following up sensitivities because of increasing resistance Difficult to treat especially given that the patient has pacemaker as well Treatment as per primary team Plan: No significant changes on the chest x-ray today. He is having 150 mL drainage of serosanguineous fluid since 6 AM. We will leave the chest tube to suction today and clamp tomorrow morning. If no increasing pneumothorax after clamping, will remove the chest tube. Recommend continued discussion with palliative care as his prognosis overall is very poor. Please note the above document was generated using voice recognition software. It may contain grammatical, syntax or spelling errors.Any formal questions or concerns about the content, text or information contained within the body of t his dictation should be directly addressed to the provider for clarification. (2) COPD (chronic obstructive pulmonary disease): COPD type: unspecified COPD Qualified Code(s): J44.9 - Chronic obstructive pulmonary disease, unspecified (3) Acute respiratory failure with hypoxia: (4) Pneumothorax: Admission and Anticipated Discharge Date Admission Date: August 25, 2020 Subjective Patient is laying in bed. He denies any chest pain, fevers or cough. He is asking me what the next step would be if we pull out the chest tube and he continues to have fluid reaccumulate. He notes that he has been through quite a bit lately and is tired. Review of Systems Review of Systems: All systems reviewed & are unremarkable except as noted in HPI & below Physical Exam Physical Exam: Constitutional: No acute distress HEENT: EOMI, PERRLA Respiratory system: Decreased air entry on the left side, positive crackles bilateral lower lobes, no wheeze, no rhonchi CVS: S1-S2 positive Abdomen: Soft, nontender, nondistended, positive bowel sounds x4, obese Extremities: +2 pulses bilaterally radialis/ dorsalis pedis, no cyanosis, +1 edema bilateral lower extremity, right arm aVF Neuro: Awake alert oriented x3 Psych: Normal mood and affect G/U: No Tyler Positive left-sided chest tube, dressing in place Skin: no rashes, warm and dry Lymphatic: no cervical or axillary lymphadenopathy Results & Data Results & Data ([facility]) Vital Signs (Past 12 Hours) Vital Signs Temp Pulse Pulse Resp BP Pulse Ox 09/12/20 07:30 60 09/12/20 07:26 98.1 F 60 20 126/62 91 09/12/20 04:00 97.9 F 60 16 106/56 L 91 09/12/20 00:18 97.7 F 60 19 125/64 94 09/11/20 23:44 60 I reviewed the vital signs, labs and imaging PG Care Time/CCT Total # of Minutes Spent Total Time Spent with Patient: Total time spent is greater than 50% in coordination of care (as documented) at patient's floor/unit and/or counseling patient: Coding Level of Care Code 26886 Subseq Hosp Care Lvl 2 Diagnoses Pleural effusion on left J90 COPD (chronic obstructive pulmonary disease) J44.9 COPD type: unspecified COPD Acute respiratory failure with hypoxia J96.01 Pneumothorax J93.9
--- NOTE | 2020-09-12 09:57 | Electrocardiogram Report ---
Test Reason : Blood Pressure : / mmHG Vent. Rate : 060 BPM Atrial Rate : 060 BPM P-R Int : 242 ms QRS Dur : 132 ms QT Int : 448 ms P-R-T Axes : 000 101 006 degrees QTc Int : 448 ms Poor data quality, interpretation may be adversely affected Atrial-paced rhythm with prolonged AV conduction Rightward axis Left bundle branch block Abnormal ECG When compared with ECG of 06-SEP-2020 09:59, No significant change Confirmed by Prateek Liz ([id number]) on 09/12/2020 9:56:42 AM Referred By: REFERRED SELF Confirmed By:Prateek Liz
--- NOTE | 2020-09-12 10:10 | Hospitalist Progress Note ---
Date of Service September 12, 2020 Assessment & Plan (1) Acute respiratory failure with hypoxia: * Complete opacification of the left lung on CXR 09/02 - secondary to large complex pleural effusion * Pulm consulted - Thoracentesis for 2.2L on 09/04 -- EXUDATIVE process. protein 3.3, LDH 156, p H 7.64H, glucose 108. Serum protein 6, LDH 211 * Pleural urea pending given possible urothorax. pleural cr send-out. * Thoracentesis 09/06 also exudative in appearance and drained 900cc. (2.2L on 09/04) * Body fluid slide with atypical cells present, cannot exclude malignancy. Cytology pending --> Rare atypical cells present. I personally spoke with pathology who feels these atypical cells could be from infection/inflammation and not true malignancy * Decompensated in the overnight hours of 09/08- 6 was transferred to telemetry due to complete whiteout of the left lung, thoracentesis resulted without significant fluid production -> Mist protocol 09/10/20 with good results * 09/06 CT Chest w/o -- small right and moderate to large left pleural effusions. mild dependent subsegmental right basilar atelectasis with compressive atelectasis of the left upper lobe and lingula. Near complete consolidation/collapse of the left lower lobe. Small pericardial effusion with new mild stranding within the mediastinal fat and epicardium, likely related to fluid overload. 5 mm groundglass nodule of the right lung apex. * chest tube placement and MIST protocol -- 09/09 has had good output but has been painful- continues with output and clearing CXR 09/11/20 * Cough productive of clear sputum per patient, He completed 7 days with Zosyn on 09/01 * Currently on 4L NC, wean as tolerated but may require buttermaker helper oxygenation if left lung won't re-inflate completely (2) Candidemia: * 1 of four blood cultures growing domenico glabrata complex. * ID consulted - ALONDRA without vegetations noted * Repeat blood cultures 09/07 * Pulm recommending sensitivities due to increased resistances. Discussed with lab and [facility] * Pleural blood urea pending given possibility of urothorax. Also added pleural cr but is a send out as well and will take several days * Patient will need two weeks of caspofungin from last positive blood culture. Last negative culture 09/02 NGTD FINAL--> 09/16 last dose of caspofungin no fever, vitals stable, appears that candidemia adequately treated (3) CKD (chronic kidney disease): * Pt has CKD INFORMATION TECHNOLOGY SPECIALIST sat * Consulted nephrology * Renal US showing chronic R hydronephrolsis - also seen in June * plan for HD tomorrow after he has cystoscopy in the morning (4) LLL pneumonia: * Pt with acute on chronic respiratory failure, with pneumonia on CXR, h/o VRE in his urine and enterococcus sensitive to vanco in his blood on multiple occasions and pseudomonas sepsis one month ago * Covid negative, UC no growth * Procalcitonin trended down. * Completed 7 days of Zosyn (5) Facial droop: This patient had a facial droop on the evening of 09/10 and stroke alert was called overhead, noncontrast CT scan showed no new changes MRI cannot be done due to pacemaker no further neurological symptoms (6) Elevated troponin: * No angina, did have 2 echos last admission( one that was ALONDRA) with preserved EF, continuing metoprolol. Resumed hydralazine and amlodipine as pressures had been increasing * Trop 0.074 on admission and essentially unchanged x2 after admission * Trop 12/29/19 at 0.094, likely chronically elevated in the setting of CKD IV * Trop unchanged on repeat. EKG unchanged. Pacemaker functioning. Pt also with small pericardial effusion on CT 09/06 * Change Nitropaste to isosorbide on 09/11 patient's had no further chest pain (7) COPD (chronic obstructive pulmonary disease): * Home symbicort, Spiriva * No further prednisone -- received 40 mg x 5 days (8) Chronic pancreatitis: * has no complaints of abd pain, will continue creon (9) Insulin-requiring or dependent type II diabetes mellitus: * Pt required iv insulin gtt initially but is now on subq insulin. Managed by pharmacy * A1c 6.6 (10) Hypothyroidism (acquired): * synthroid 88 mcg was recently increased [facility]mcg [facility], however states this was not started yet * Dose adjusted 08/27 * Continue 100mcg daily (11) Smoker: * nicotine patch discontinued (12) Abnormal finding on urinalysis: * 3+ leuk est, neg nitrites, yeast noted * Urine cx mixed skin nu - dc'd dapto (13) Positive blood culture: * As above (14) History of nephrostomy: * Removed 08/04 but with increasing urine drainage. Urology consulted - Does not recommend suturing closed. May upsize his ureteral stent later this week This was delayed at this point time his respiratory status makes him difficult to take to the operating room (15) Hyponatremia: * Resolved. Na 138 (16) Constipation: * Resolved (17) Hyperphosphatemia: * Sevelamer 800mg BID per nephrology. Improved on labs. * Continue to monitor (18) Chest pain: * Reported on morning of 09/06 wax/waning, sharp/stabbing. pain now seems musculasleletal * EKG with atrial paced rhythm with prolonged AV conduction, non-specific intraventricular block. Electronic atrial pacemaker has replaced electronic ventricular pacemaker and ventricular rate decreased by 83bpm * Troponin unchanged from 08/25 -- likely related to his CKD as well as p ericardial effusion/volume overload * chest pain from chest tube at present (19) DVT prophylaxis: * Patient has refused heparin subcutaneously will use SCDs is a poor second choice given his multiple comorbidities and inflammatory issues Pt states that [facility] to get [facility] for a [facility] for use when away from home PT/OT - recommending rehab but patient is refusing. Family not feeling that they would be able to take him home at this point but will continue to assess progress. Attempting to find some caregivers to come in for a few hours each day Mr. Morales has multiple issues at hand with severe deconditioning and poor nutritional status. His prognosis is poor at this point. Evaluated by palliative care 09/05 -- plans to treat current state and possibly move forward with skilled with transition to hospice at discharge if able Will reach out for further discussion if patient continues to decline interventions (20) Hyperkalemia: 5.3 today, patient refuses HD today also refuses Kayexalate due to sore buttocks repeat in the AM, plan for HD tomorrow (21) Hydronephrosis: ongoing issue, had nephrostomy tube placed, then on HD still unclear cause, plans for cystoscopy have been delayed due to multiple other issues plan for cystocopy tomorrow AM with potential bladder biopsy, stent exchange if patient has bladder CA then it will further guide discussions on goals of care (22) Pleural effusion: left sided, large, loculated exudative on initial thoracentesis and subsequent thoracentesis atypical cells initially, then just inflammatory cells, then atypical cells again, no definitive diagnosis again, having a diagnosis would be helpful for goals of care (23) Goals of care, counseling/discussion: discussed with him today, he states that his primary goal is to just go home he says this is the longest he has been away from home in his life discussed complicated situation with ESRD, pleural effusion, candidemia, weakness/deconditioning, hypoxia discussed that we still don't have any answer for hydronephrosis and pleural effusion, looking into possible cancer he understands he wishes to remain full code at this time I suspect that if cancer is found he would not want treatment and would want hospice palliative care is following, appreciate their help Admission and Anticipated Discharge Date Admission Date: August 25, 2020 Subjective patient resting comfortably today he denies chest pain, dyspnea, fever/chills, nausea he says his backside is sore from being in bed and says "I don't have much meat on my bones" discussed with Dr. Daniels, K is 5.3, he offered him HD today but he refused, plan for typical Saturday session discussed with urology, plan for cystoscopy tomorrow for stent exchange, bladder biopsy, patient agrees with this discussed with palliative care, working towards goals of care plan, agree that biopsy of bladder would be helpful in determining plan discussed with pulmonology, plan to clamp chest tube tomorrow AM, if no pneumothorax then possible removal Review of Systems Review of Systems: All systems reviewed & are unremarkable except as noted in Subjective Constitutional: + fatigue and + weakness; no fever Respiratory: + dyspnea on exertion; no cough and no dyspnea Cardiovascular: no chest pain Gastrointestinal: no abdominal pain, no nausea, no vomiting, no constipation and no diarrhea/loose stools Physical Exam Constitutional: well developed, + ill appearing and + frail appearing; no ac [place] distress Neck: trachea midline, no thyromegaly Respiratory: normal respiratory effort and + cough; no respiratory distress Auscultation: + diminished lung sounds (left base); no crackles, no rales, no rhonchi and no wheezes Cardiovascular: RRR, no murmur, no edema Gastrointestinal (Abdomen): normal bowel sounds, soft, nontender, no hepatosplenomegaly Musculoskeletal: no cyanosis or clubbing, extremities motor strength 5/5 Skin: no rashes, warm and dry Neurologic: patellar DTR's 2+ bilat, sensation intact and PERRL, EOMI, accommodation nl, no face palsy, no dysarthria Psychiatric: A+Ox3, euthymic affect Lymphatic: no cervical or axillary lymphadenopathy Results & Data Results & [facility] ([facility]) Vital Signs (Past 12 Hours) Vital Signs Temp Pulse Pulse Resp BP Pulse Ox 09/12/20 07:30 60 09/12/20 07:26 36.7 C 60 20 126/62 91 09/12/20 04:00 36.6 C 60 16 106/56 L 91 09/12/20 00:18 36.5 C 60 19 125/64 94 09/11/20 23:44 60 Laboratory Results Laboratory Results - last 24 hr 09/10/20 09/10/20 09/11/20 16:18 19:22 06:35 WBC RBC Hgb Hct MCV MCH MCHC RDW Std Deviation RDW Coeff of Hilda Plt Count MPV Sodium Potassium Chloride Carbon Dioxide Anion Gap BUN Creatinine Est Cr Clr Drug Dosing Est GFR ( Amer) Est GFR (Non-Af Amer) BUN/Creatinine Ratio Glucose POC Glucose 96 106 H Calcium Iron 51 Transferrin 98 L Transferrin % Sat 37 Ferritin 09/11/20 09/11/20 09/11/20 07:32 11:28 16:33 WBC RBC Hgb Hct MCV MCH MCHC RDW Std Deviation RDW Coeff of Hilda Plt Count MPV Sodium Potassium Chloride Carbon Dioxide Anion Gap BUN Creatinine Est Cr Clr Drug Dosing Est GFR ( Amer) Est GFR (Non-Af Amer) BUN/Creatinine Ratio Glucose POC Glucose 116 H 134 H 147 H Calcium Iron Transferrin Transferrin % Sat Ferritin 09/11/20 09/12/20 09/12/20 20:03 07:17 07:17 WBC 14.17 H RBC 3.09 L Hgb 8.8 L Hct 29.8 L MCV 96.4 MCH 28.5 MCHC 29.5 L RDW Std Deviation 59.2 H RDW Coeff of Hilda 17.2 H Plt Count 387 MPV 9.4 Sodium 133 L Potassium 5.3 H Chloride 102 Carbon Dioxide 24 Anion Gap 8.0 BUN 42 H Creatinine 5.57 H* D Est Cr Clr Drug Dosing 14.1 Est GFR ( Amer) 10.9 Est GFR (Non-Af Amer) 9.4 BUN/Creatinine Ratio 7.6 L Glucose 121 H POC Glucose 143 H Calcium 8.5 Iron Transferrin Transferrin % Sat Ferritin 1146.0 H 09/12/20 07:39 WBC RBC Hgb Hct MCV MCH MCHC RDW Std Deviation RDW Coeff of Hilda Plt Count MPV Sodium Potassium Chloride Carbon Dioxide Anion Gap BUN Creatinine Est Cr Clr Drug Dosing Est GFR ( Amer) Est GFR (Non-Af Amer) BUN/Creatinine Ratio Glucose POC Glucose 133 H Calcium Iron Transferrin Transferrin % Sat Ferritin Medications Administered Current Inpatient Medications Acetaminophen (Acetaminophen 325 Mg Tab) 650 mg PO Q4H PRN PRN Reason: pain Stop: 09/26/20 16:25 Last Admin: 09/12/20 03:44 Dose: 650 mg Documented by: Albuterol (Albut/Ipratrop 3mg/0.5mg Neb 3 Ml Vial) 3 ml NEB Q4R PRN PRN Reason: Shortness Of Breath Or Wheezing Stop: 09/24/20 12:59 Last Admin: 09/06/20 07:15 Dose: 3 ml Documented by: Amlodipine Besylate (Amlodipine Besylate 5 Mg Tab) 10 mg PO QAM [facility] Stop: 10/05/20 08:59 Last Admin: 09/12/20 08:15 Dose: 10 mg Documented by: Lipase/Protease/Amylase (Pancreaze (Lipase 10,500u) Cap) 2 cap PO TIDM [facility] Stop: 09/24/20 16:59 Last Admin: 09/12/20 08:16 Dose: 2 cap Documented by: Aspirin (Aspirin 81 Mg Ectab) 81 mg PO QAM [facility] Stop: 10/10/20 20:29 Last Admin: 09/12/20 08:15 Dose: 81 mg Documented by: Bisacodyl (Bisacodyl 10 Mg Supp) 10 mg [place] DAILY PRN PRN Reason: Constipation Stop: 10/06/20 17:42 Dextrose (Dextrose 50% 50 Ml Syringe) 25 - 50 ml IV UD PRN; Protocol PRN Reason: Hypoglycemia Protocol Stop: 09/24/20 10:34 Last Admin: 09/04/20 22:03 Dose: 25 ml Documented by: Docusate Sodium (Docusate Sodium 100 Mg Cap) 100 mg PO BID [facility] Stop: 10/06/20 20:59 Last Admin: 09/11/20 19:45 Dose: Not Given Documented by: Epoetin Tenzin (Epoetin Tenzin 10,000 Units/Ml Vial) 10,000 units IV TODAY@0900 [facility] Stop: 09/13/20 18:00 Fluticasone/Vilanterol (Fluticasone/Vilanterol 100/25mcg 14 Puffs/Inhaler) 1 puffs INH HS PRN PRN Reason: Shortness Of Breath Stop: 10/04/20 14:30 Gabapentin (Gabapentin 300 Mg Cap) 300 mg PO QAM [facility] Stop: 09/25/20 08:59 Last Admin: 09/12/20 08:15 Dose: 300 mg Documented by: Glucagon (Glucagon For Inj 1 Mg Vial) 1 mg SQ UD PRN; Protocol PRN Reason: Hypoglycemia Protocol Stop: 09/24/20 10:34 Glucose (Glucose 10 Tabs/Tube) 4 - 8 tabs PO UD PRN; Protocol PRN Reason: Hypoglycemia Protocol Stop: 09/24/20 10:34 Glucose (Glucose 40% Gel 15 Gm Tube) 15 - 30 gm PO UD PRN; Protocol PRN Reason: Hypoglycemia Protocol Stop: 09/24/20 10:34 Heparin Sodium (Porcine) (Heparin Sod 5,000 Unit/0.5 Ml Vial) 5,000 units SQ Q12 [facility] Stop: 10/05/20 08:59 Last Admin: 09/12/20 08:13 Dose: Not Given Documented by: Hydralazine HCl (Hydralazine 10 Mg Tab) 10 mg PO BID [facility] Stop: 10/04/20 20:59 Last Admin: 09/12/20 08:15 Dose: 10 mg Documented by: Sodium Chloride (Nss 1000ml) 1,000 mls @ 0 mls/hr IV .Q0M PRN PRN Reason: For Hemodialysis Use ONLY Stop: 09/13/20 12:59 Insulin Aspart (Insulin Aspart 100 Units/Ml 3 Ml Pen) 0 units SC ACHS [facility]; Protocol Stop: 10/09/20 16:29 Last Admin: 09/12/20 08:11 Dose: Not Given Documented by: Insulin Glargine (Insulin Glargine Solostar 100 Units/Ml 3 Ml Pen) 0 units SC BID [facility]; Protocol Stop: 10/07/20 09:14 Last Admin: 09/12/20 08:14 Dose: Not Given Documented by: Isosorbide Mononitrate (Isosorbide Mononitrate 20 Mg Tab) 20 mg PO BID [facility] Stop: 10/11/20 12:59 Last Admin: 09/12/20 08:15 Dose: 20 mg Documented by: Levothyroxine Sodium (Levothyroxine Sodium 100 Mcg Tablet) 100 mcg PO DAILYBB [facility] Stop: 09/26/20 06:29 Last Admin: 09/12/20 06:16 Dose: 100 mcg Documented by: Metoprolol Tartrate (Metoprolol Tartrate 25 Mg Tab) 25 mg PO BID [facility] Stop: 09/24/20 20:59 Last Admin: 09/12/20 08:19 Dose: 25 mg Documented by: Miscellaneous (Carbohydrates For Hypoglycemia ) 15 - 30 gm PO UD PRN PRN Reason: Hypoglycemia Protocol Stop: 09/24/20 10:34 Last Admin: 09/07/20 17:36 Dose: 15 gm Documented by: Miscellaneous (Remove Nicoderm Patch) 1 ea N/A DAILY@0859 [facility] Stop: 09/25/20 08:58 Last Admin: 09/12/20 08:11 Dose: Not Given Documented by: Miscellaneous (No Heparin In Dialysis) 1 ea N/A ONE ONE Stop: 09/13/20 07:01 Miscellaneous Information (Pharmacy Glycemic Mgmt Consult) 1 ea N/A UD PRN; Protocol PRN Reason: Consult Stop: 09/24/20 12:36 Morphine Sulfate (Morphine Sulfate 2 Mg/Ml Carp) 2 mg IV Q2H PRN PRN Reason: Pain Stop: 09/24/20 10:02 Last Admin: 09/12/20 03:44 Dose: 2 mg Documented by: Nicotine (Nicotine 14 Mg/24 Hr Patch) 14 mg TD QAM PRN PRN Reason: NICOTINE CRAVING Stop: 09/25/20 08:59 Ondansetron HCl (Ondansetron Inj 2 Mg/Ml 2 Ml Vial) 4 mg IV Q6H PRN PRN Reason: Nausea Stop: 09/24/20 12:47 Last Admin: 09/10/20 05:45 Dose: 4 mg Documented by: Polyethylene Glycol (Polyethylene (Miralax) 17 Gm Pack) 17 gm PO DAILY PRN PRN Reason: Constipation Stop: 09/24/20 12:47 Last Admin: 08/26/20 21:21 Dose: 17 gm Documented by: Sevelamer HCl (Sevelamer Hcl 800 Mg Tablet) 800 mg PO TIDM [place] Stop: 09/30/20 11:59 Last Admin: 09/12/20 08:15 Dose: 800 mg Documented by: Tamsulosin HCl (Tamsulosin Hcl 0.4 Mg Cap) 0.4 mg PO DAILY [facility] Stop: 09/25/20 08:59 Last Admin: 09/12/20 08:15 Dose: 0.4 mg Documented by: Umeclidinium [place] (Umeclidinium [place] 62.5mcg/Blister 7 Puffs/Inhaler) 1 puffs INH DAILY [facility]; Protocol Stop: 10/03/20 08:59 Last Admin: 09/12/20 08:12 Dose: 1 puffs Documented by: Vitamin B Complex/Folic Acid (Nephrocaps) 1 cap PO QAM [place] Stop: 09/30/20 08:59 Last Admin: 09/12/20 08:15 Dose: 1 cap Documented by: PG Care Time/CCT Total # of Minutes Spent Total Time Spent with Patient: Total time spent is greater than 50% in coordination of care (as documented) at patient's floor/unit and/or counseling patient: Coding Level of Care Code 39347 Subseq Hosp Care Lvl 3 Diagnoses Acute respiratory failure with hypoxia J96.01 Candidemia B37.7 CKD (chronic kidney disease) N18.9 LLL pneumonia J18.9 Pneumonia type: due to unspecified organism Facial droop R29.810 Elevated troponin R77.8 COPD (chronic obstructive pulmonary disease) J44.9 COPD type: unspecified COPD Chronic pancreatitis K86.1 Pancreatitis type: unspecified pancreatitis type Insulin-requiring or dependent type II diabetes mellitus E11.9; Z79.4 Hypothyroidism (acquired) E03.9 Smoker F17.200 Abnormal finding on urinalysis R82.90 Positive blood culture R78.81 History of nephrostomy Hyponatremia E87.1 Constipation K59.00 Hyperphosphatemia E83.39 Chest pain R07.9 DVT prophylaxis Z29.9 Hyperkalemia E87.5 Hydronephrosis N13.30 Pleural effusion J90 Goals of care, counseling/discussion Z71.89 (1) Chronic pancreatitis Pancreatitis type: unspecified pancreatitis type Qualified Code(s): K86.1 - Other chronic pancreatitis (2) COPD (chronic obstructive pulmonary disease) COPD type: unspecified COPD Qualified Code(s): J44.9 - Chronic obstructive pulmonary disease, unspecified (3) LLL pneumonia Pneumonia type: due to unspecified organism Qualified Code(s): J18.9 - Pneumonia, unspecified organism
[2020-09-12] MEDS: DOCUSATE SODIUM 100 MG CAP PO SCH ×2 (10:12→22:20)
--- NOTE | 2020-09-12 12:40 | Urology Progress Note ---
Date of Service September 12, 2020 Assessment & Plan (1) Acute renal failure: (2) History of nephrostomy: 74 year-old male patient, with multiple comorbidities, admitted for acute respiratory failure secondary to pneumonia. - Patient with right ureteral stent, prior nephrostomy, renal failure on dialysis. - Plan of care discussed with Dr. Ordonez. - He is s/p thoracentesis and left chest tube placement. - Discussed case with hospitalist regarding undergoing surgical intervention this week. - If respiratory and overall health status remains stable, plan for procedure tomorrow morning. - Patient to be NPO after midnight. - Will plan for cystoscopy, right ureteral stent exchange, and possible bladder biopsy/fulguration with Dr. Ordonez. - Patient agreeable to plan and understands that intervention may be delayed if respiratory status not optimized. - Will continue to follow while inpatient. Admission and Anticipated Discharge Date Admission Date: August 25, 2020 Subjective Patient examined, comfortable and resting in bed. Reports overall improvement in his shortness of breath, now on nasal cannula. Left chest tube remains intact. Denies flank or abdominal pain. Denies hematuria or dysuria, reports episode of incontinence yesterday otherwise has not been voiding. Denies fevers or chills. Denies nausea or vomiting. Patient agreeable to undergo stent exchange and possible bladder biopsy, possibly tomorrow. Chart review: Afebrile Wbc 14.17 Hgb 8.8 Creatinine 5.57 Denies additional urologic concerns today. Review of Systems Constitutional: as per Subjective / HPI; no fever and no chills Respiratory: as per Subjective / HPI Gastrointestinal: no nausea and no vomiting Genitourinary: + as per Subjective / HPI Endocrine: + fatigue Physical Exam Constitutional: cooperative and comfortable; no acute distress and not ill appearing Respiratory: normal respiratory effort and able to speak in complete sentences; no respiratory distress and no audible wheezes 4L nasal cannula. Chest tube noted to left chest draining serosanguineous drainage. Gastrointestinal (Abdomen): Inspection/Auscultation: abdomen normal to inspection; abdomen not distended Percussion/Palpation: abdomen soft; abdomen nontender and no guarding Psychiatric: Orientation: alert, oriented x 3 and cooperative Affect: + flat affect Genitourinary: no CVA tenderness Dressing to right flank clean, dry, and intact. Results & Data ([facility]) Vital Signs (Past 12 Hours) Vital Signs Temp Pulse Pulse Resp BP Pulse Ox 09/12/20 11:24 36.7 C 60 19 110/54 L 91 09/12/20 07:30 60 09/12/20 07:26 36.7 C 60 20 126/62 91 09/12/20 04:00 36.6 C 60 16 106/56 L 91 PG Care Time/CCT Total # of Minutes Spent Total Time Spent with Patient: Total time spent is greater than 50% in coordination of care (as documented) at patient's floor/unit and/or counseling patient: Coding Level of Care Code 93620 Subseq Hosp Care Lvl 2 Diagnoses Acute renal failure N17.9 History of nephrostomy
--- NOTE | 2020-09-12 13:02 | Palliative Care Progress Note ---
Date of Service September 12, 2020 Assessment & Plan (1) Palliative care encounter: I met with this patient in room 211. The patient was resting in his bed in no apparent distress. He continues to have his left chest wall chest tube which he said has helped with his breathing. He was evaluated by urology and a ureteral stent is planned for tomorrow 09/13 with a likely biopsy thereafter. For now, continue aggressive treatment measures and pt will remain a full code. Will revisit conversation regarding goals of care after his procedures and biopsy findings. Patient receptive to continued conversations. (2) Acute respiratory failure with hypoxia: (3) ESRD needing dialysis: (4) Pleural effusion on left: Admission and Anticipated Discharge Date Admission Date: August 25, 2020 Subjective Pt resting comfortably in no apparent distress Pt continues to have left sided chest tube Plan for ureteral stent placement tomorrow 09/13. Plan for further GOC discussions thereafter. Review of Systems Review of Systems: [place] Symptom Assessment Scale Pain 0/3 Dyspnea 1/3 Nausea 0/3 Anxiety 1/3 Drowsiness 1/3 Delirium 0/3 Physical Exam Constitutional: + ill appearing, + well hydrated, cooperative and comfortable Respiratory: normal respiratory effort and + cough Auscultation: + diminished lung sounds Cardiovascular: Rate/Rhythm: regular rate and regular rhythm Extremities: normal capillary refill and + edema Gastrointestinal (Abdomen): normal bowel sounds, soft, nontender, no hepatosplenomegaly Percussion/Palpation: abdomen soft Skin: no rashes, warm and dry Psychiatric: A+Ox3, euthymic affect Results & Data ([facility]) Vital Signs (Past 12 Hours) Vital Signs Temp Pulse Pulse Resp BP Pulse Ox 09/12/20 11:24 36.7 C 60 19 110/54 L 91 09/12/20 07:30 60 09/12/20 07:26 36.7 C 60 20 126/62 91 09/12/20 04:00 36.6 C 60 16 106/56 L 91 PG Care Time/CCT Total # of Minutes Spent Total Time Spent with Patient: Total time spent is greater than 50% in coordination of care (as documented) at patient's floor/unit and/or counseling patient: 35 Coding Level of Care Code 41207 Subseq Hosp Care Lvl 3 Diagnoses Palliative care encounter Z51.5 Acute respiratory failure with hypoxia J96.01 ESRD needing dialysis N18.6; Z99.2 Pleural effusion on left J90 Time Spent (min) 35 Time Spent Midlevel Total time spent 35 minutes with > 50% of that time spent assessing the patient, discussing goals of care and collaborating with the IDT
[2020-09-13] MEDS: ONDANSETRON INJ 2 MG/ML 2 ML VIAL IV PRN ×2 (00:16→07:43)
[2020-09-13] MEDS: LEVOTHYROXINE SODIUM 100 MCG TABLET PO SCH (01:48)
[2020-09-13] MEDS: MoRPHine SULFATE 2 MG/ML CARP IV PRN (01:54)
[2020-09-13] MEDS: ALBUT/IPRATROP 3MG/0.5MG NEB 3 ML VIAL NEB PRN (02:50)
[2020-09-13] MEDS ORDERED: CIPROFLOXACIN / D5W 200 MG/100 ML BAG IV SCH (06:00)
[2020-09-13] MEDS ORDERED: fentaNYL citrate 100 MCG/2 ML VIAL ONE (06:38)
[2020-09-13] MEDS ORDERED: PROPOFOL IV EMULSION 10 MG/ML 20 ML VIAL IV ONE ×2 (06:38→07:28)
[2020-09-13] MEDS ORDERED: LIDOCAINE HCL 2% 2 ML VIAL/AMP(20MG/ML) INFIL ONE ×2 (06:38→07:28)
[2020-09-13] MEDS ORDERED: SODIUM CHLORIDE 0.9% 1000ML 1,000 ML IV PRN (07:00)
--- NOTE | 2020-09-13 07:09 | History & Physical Bridge Note ---
Date of Service September 13, 2020 History & Physical Bridge Note I have examined the patient, reviewed the History & Physical and in the interval since the performance of the History & Physical I have noted the following changes of clinical significance: no changes noted
--- NOTE | 2020-09-13 07:12 | XRay Report ---
XR chest 1V portable HISTORY: 74 years-old Male f/u acute shortness of breath. COMPARISON: Chest radiograph 09/12/2020 TECHNIQUE: Portable AP view of the chest FINDINGS: The patient is again rotated towards the left. Pigtail catheter at the level of the left lung base is unchanged. Left subclavian pacer. Tiny left-sided pneumothorax. Pulmonary vascular congestion. Uncha nged left pleural effusion with left lung base and left midlung consolidation. Mild right hemidiaphra gmatic elevation. Degenerative changes of the shoulders and spine. IMPRESSION: 1. Unchanged volume loss of the left lung with left pleural effusion and left lung consolidation. 2. Stable positioning of the left lung base pigtail catheter with stable tiny left-sided pneumothorax 3. Cardiomegaly with pulmonary vascular congestion. ACT 112: Negative or not required by law. The above report was generated using voice recognition software. It may contain grammatical, syntax o r spelling errors. Electronically signed by: Michael Truong M.D. 09/13/2020 7:11 AM
--- NOTE | 2020-09-13 07:25 | Urology Progress Note ---
Date of Service September 13, 2020 Assessment & Plan (1) Hydronephrosis: aborted/cancelled cysto, stent exchange, bladder biopsy for today - will continue to follow - if stabilizes enough to tolerate anesthesia, etc - we can consider the procedure again, but no immediate plans to reschedule Admission and Anticipated Discharge Date Admission Date: August 25, 2020 Subjective tentatively scheduled for cysto, stent exchange, possible biopsy today in discussion with anesthesia, the risks are felt to outweigh the benefits we have elected to cancel the case Physical Exam Constitutional: well developed and well nourished Respiratory: no respiratory distress Cardiovascular: Extremities: no pedal edema Gastrointestinal (Abdomen): Inspection/Auscultation: abdomen normal to inspection Results & Data ([facility]) Vital Signs (Past 12 Hours) Vital Signs Temp Pulse Pulse Resp BP Pulse Ox 09/13/20 07:00 64 09/13/20 04:14 36.9 C 64 20 102/56 L 90 09/13/20 02:51 66 18 91 09/12/20 23:59 61 09/12/20 23:53 36.7 C 65 19 116/60 90 09/12/20 19:54 36.9 C 60 16 116/58 L 96 PG Care Time/CCT Total # of Minutes Spent Total Time Spent with Patient: Total time spent is greater than 50% in coordination of care (as documented) at patient's floor/unit and/or counseling patient: Coding Level of Care Code None Diagnoses Hydronephrosis N13.30
[2020-09-13] MEDS ORDERED: SODIUM CHLORIDE 0.9% 1000ML 500 ML IV ONE (07:55)
[2020-09-13] MEDS ORDERED: LORazepam 0.5 MG/1 ML VIAL IV PRN (08:00)
[2020-09-13] MEDS ORDERED: PROMETHAZINE HCL 12.5 MG in SODIUM CHLORIDE 0.9% 50 ML IV STA (08:01)
--- NOTE | 2020-09-13 08:15 | Hospitalist Progress Note ---
Date of Service September 13, 2020 Assessment & Plan (1) Acute respiratory failure with hypoxia: * Complete opacification of the left lung on CXR 09/02 - secondary to large complex pleural effusion * Pulm consulted - Thoracentesis for 2.2L on 09/04 -- EXUDATIVE process. protein 3.3, LDH 156, pH 7.64H, glucose 108. Serum protein 6, LDH 211 * Pleural urea pending given possible urothorax. pleural cr send-out. * Thoracentesis 09/06 also exudative in appearance and drained 900cc. (2.2L on 09/04) * Body fluid slide with atypical cells present, cannot exclude malignancy. Cytology pending --> Rare atypical cells present. I personally spoke with pathology who feels these atypical cells could be from infection/inflammation and not true malignancy * Decompensated in the overnight hours of 09/08- 6 was transferred to telemetry due to complete whiteout of the left lung, thoracentesis resulted without significant fluid production -> Mist protocol 09/10/20 with good results * 09/06 CT Chest w/o -- small right and moderate to large left pleural effusions. mild dependent subsegmental right basilar atelectasis with compressive atelectasis of the left upper lobe and lingula. Near complete consolidation/collapse of the left lower lobe. Small pericardial effusion with new mild stranding within the mediastinal fat and epicardium, likely related to fluid overload. 5 mm groundglass nodule of the right lung apex. * chest tube placement and MIST protocol -- 09/09 has had good output but has been painful- continues with output and clearing CXR 09/11/20 * Cough productive of clear sputum per patient, He completed 7 days with Zosyn on 09/01 * Currently on 4L NC, wean as tolerated but may require long term care pharmacist oxygenation if left lung won't re-inflate completely (2) Candidemia: * 1 of four blood cultures growing domenico glabrata complex. * ID consulted - ALONDRA without vegetations noted * Repeat blood cultures 09/07 * Pulm recommending sensitivities due to increased resistances. Discussed with lab and they were sent to [facility] 09/05 * Pleural blood urea pending given possibility of urothorax. Also added pleural cr but is a send out as well and will take several days * Patient will need two weeks of caspofungin from last positive blood culture. 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 * Completed 7 days of Zosyn (5) Facial droop: This patient had a facial droop on the evening of 09/10 and stroke alert was called overhead, noncontrast CT scan showed no new changes MRI cannot be done due to pacemaker no further neurological symptoms (6) Elevated troponin: * No angina, did have 2 echos last admission( one that was ALONDRA) with preserved EF, continuing metoprolol. Resumed hydralazine and amlodipine as pressures had been increasing * Trop 0.074 on admission and essentially unchanged x2 after admission * Trop 12/29/19 at 0.094, likely chronically elevated in the setting of CKD IV * Trop unchanged on repeat. EKG unchanged. Pacemaker functioning. Pt also with small pericardial effusion on CT 09/06 * Change Nitropaste to isosorbide on 09/11 patient's had no further chest pain (7) COPD (chronic obstructive pulmonary disease): * Home symbicort, Spiriva * No further prednisone -- received 40 mg x 5 days (8) Chronic pancreatitis: * has no complaints of abd pain, will continue creon (9) Insulin-requiring or dependent type II diabetes mellitus: * Pt required iv insulin gtt initially but is now on subq insulin. Managed by pharmacy * A1c 6.6 (10) Hypothyroidism (acquired): * synthroid 88 mcg was recently increased to 100mcg by [facility], however states this was not started yet * Dose adjusted 08/27 * Continue 100mcg daily (11) Smoker: * nicotine patch discontinued (12) Abnormal finding on urinalysis: * 3+ leuk est, neg nitrites, yeast noted * Urine cx mixed skin nu - dc'd dapto (13) Positive blood culture: * As above (14) History of nephrostomy: * Removed 08/04 but with increasing urine drainage. Urology consulted - Does not recommend suturing closed. May upsize his ureteral stent later this week This was delayed at this point time his respiratory status makes him difficult to take to the operating room (15) Hyponatremia: * Resolved. Na 138 (16) Constipation: * Resolved (17) Hyperphosphatemia: * Sevelamer 800mg BID per nephrology. Improved on labs. * Continue to monitor (18) Chest pain: * Reported on morning of 09/06 wax/waning, sharp/stabbing. pain now seems musculasleletal * EKG with atrial paced rhythm with prolonged AV conduction, non-specific intraventricular block. Electronic atrial pacemaker has replaced electronic ventricular pacemaker and ventricular rate decreased by 83bpm * Troponin unchanged from 08/25 -- likely related to his CKD as well as pericardial effusion/volume overload * chest pain from chest tube at present (19) DVT prophylaxis: * Patient has refused heparin subcutaneously will use SCDs is a poor second choice given his multiple comorbidities and inflammatory issues Pt states that the [facility] has been working to get him approved for a [facility] for use when away from home PT/OT - recommending rehab but patient is refusing. Family not feeling that they would be able to take him home at this point but will continue to assess progress. Attempting to find some caregivers to come in for a few hours each day Mr. Morales has multiple issues at hand with severe deconditioning and poor nutritional status. His prognosis is poor at this point. Evaluated by palliative care 09/05 -- plans to treat current state and possibly move forward with skilled with transition to hospice at discharge if able Will reach out for further discussion if patient continues to decline interventions (20) Hyperkalemia: 5.3 today, patient refuses HD today also refuses Kayexalate due to sore buttocks repeat in the AM, plan for HD tomorrow (21) Hydronephrosis: ongoing issue, had nephrostomy tube placed, then on HD still unclear cause, plans for cystoscopy have been delayed due to multiple other issues plan for cystocopy tomorrow AM with potential bladder biopsy, stent exchange if patient has bladder CA then it will further guide discussions on goals of care (22) Pleural effusion: left sided, large, loculated exudative on initial thoracentesis and subsequent thoracentesis atypical cells initially, then just inflammatory cells, then atypical cells again, no definitive diagnosis again, having a diagnosis would be helpful for goals of care (23) Goals of care, counseling/discussion: discussed with him today, he states that his primary goal is to just go home he says this is the longest he has been away from home in his life discussed complicated situation with ESRD, pleural effusion, candidemia, weakness/deconditioning, hypoxia discussed that we still don't have any answer for hydronephrosis and pleural effusion, looking into possible cancer he understands he wishes to remain full code at this time I suspect that if cancer is found he would not want treatment and would want hospice palliative care is following, appreciate their help Admission and Anticipated Discharge Date Admission Date: August 25, 2020 Subjective called to bedside early this morning after patient was vomiting all night, hypotensive he refused morning labs and does not want to go to dialysis cystoscopy case was cancelled due to his deteriorating condition I spoke with the patient at length at the bedside, discussed his worsening condition, poor quality of life discussed that dialysis, pleural effusion with chest tube, deconditioning, poor nutrition discussed that there were concerns about what we might find on cystoscopy, certainly if there was bladder cancer he would not endure any treatment he said he wanted to stop all treatments, tired of dialysis and the chest tube discussed that he was still listed as full code in the computer, I recommended that we change his code status he became tearful, said he wasn't sure if he was ready to we discussed that full resuscitation would put him through more suffering compared to just lab draws or dialysis discussed that he was dying, getting worse each day, that full resuscitation would put him through more suffering instead of letting him pass away peacefully he agreed to DNR I called his right after our conversation, explained he was getting worse, she just wanted him to be comfortable she said she would come in as soon as possible I called specialists to let them know of plans to change to comfort care patient at 1025am, please refer to summary and discharge summary dated 09/13/20 Review of Systems Review of Systems: All systems reviewed & are unremarkable except as noted in Subjective Constitutional: + fatigue and + weakness; no fever Respiratory: + cough, + dyspnea and + pain on inspiration Cardiovascular: + edema Gastrointestinal: + nausea and + vomiting; no abdominal pain, no constipation and no diarrhea/loose stools Musculoskeletal: + muscle weakness Psychiatric: + depression (tearful) Physical Exam Constitutional: + acute distress, + ill appearing, + frail appearing and + lethargic Neck: trachea midline, no thyromegaly Respiratory: + labored breathing, + cough and + tachypneic; no respiratory distress Auscultation: + diminished lung sounds (left base); no crackles, no rales, no rhonchi and no wheezes Cardiovascular: Rate/Rhythm: regular rate and regular rhythm Heart Sounds: normal S1 and normal S2; no murmur Vessels: no JVD Extremities: + edema Gastrointestinal (Abdomen): normal bowel sounds, soft, nontender, no hepatosplenomegaly Musculoskeletal: Head/Neck/Chest: normocephalic, head atraumatic and neck supple Extremities: + abnormal strength (generalized weakness) Skin: no rashes, warm and dry Neurologic: patellar DTR's 2+ bilat, sensation intact and PERRL, EOMI, accommodation nl, no face palsy, no dysarthria Psychiatric: Orientation: oriented x 3 Affect: + tearful affect Lymphatic: no cervical or axillary lymphadenopathy Results & Data Results & Data ([facility]) Vital Signs (Past 12 Hours) Vital Signs Temp Pulse Pulse Resp BP Pulse Ox 09/13/20 07:44 36.7 C 61 22 85/62 L 91 09/13/20 07:00 64 09/13/20 04:14 36.9 C 64 20 102/56 L 90 09/13/20 02:51 66 18 91 09/12/20 23:59 61 09/12/20 23:53 36.7 C 65 19 116/60 90 Medications Administered Current Inpatient Medications Acetaminophen (Acetaminophen 325 Mg Tab) 650 mg PO Q4H PRN PRN Reason: pain Stop: 09/26/20 16:25 Last Admin: 09/12/20 03:44 Dose: 650 mg Documented by: Epoetin Tenzin (Epoetin Teznin 10,000 Units/Ml Vial) 10,000 units IV TODAY@0900 LAW Stop: 09/13/20 18:00 Sodium Chloride (Nss 1000ml) 1,000 mls @ 0 mls/hr IV .Q0M PRN PRN Reason: For Hemodialysis Use ONLY Stop: 09/13/20 12:59 Ciprofloxacin Lactate (Cipro / D5w) 200 mg in 100 mls @ 100 mls/hr IV PREOP LAW; Protocol Stop: 09/13/20 18:00 Sodium Chloride (Nss 1000ml) 500 mls @ 999 mls/hr IV .Q31M ONE Stop: 09/13/20 08:25 Last Admin: 09/13/20 08:08 Dose: 999 mls/hr Documented by: Lorazepam (Ativan) 0.5 mg in 1 mls @ 1 mls/min IV Q4H PRN PRN Reason: Anxiety/Agitation Stop: 10/13/20 07:59 Miscellaneous (Remove Nicoderm Patch) 1 ea N/A DAILY@0859 [facility] Stop: 09/25/20 08:58 Last Admin: 09/12/20 08:11 Dose: Not Given Documented by: Morphine Sulfate (Morphine Sulfate 2 Mg/Ml Carp) 2 mg IV Q2H PRN PRN Reason: Pain Stop: 09/24/20 10:02 Last Admin: 09/13/20 01:54 Dose: 2 mg Documented by: Nicotine (Nicotine 14 Mg/24 Hr Patch) 14 mg TD QAM PRN PRN Reason: NICOTINE CRAVING Stop: 09/25/20 08:59 Ondansetron HCl (Ondansetron Inj 2 Mg/Ml 2 Ml Vial) 4 mg IV Q6H PRN PRN Reason: Nausea Stop: 09/24/20 12:47 Last Admin: 09/13/20 07:43 Dose: 4 mg Documented by: PG Care Time/CCT Total # of Minutes Spent Total Time Spent with Patient: Total time spent is greater than 50% in coordination of care (as documented) at patient's floor/unit and/or counseling patient: Coding Level of Care Code None Diagnoses Acute respiratory failure with hypoxia J96.01 Candidemia B37.7 CKD (chronic kidney disease) N18.9 LLL pneumonia J18.9 Pneumonia type: due to unspecified organism Facial droop R29.810 Elevated troponin R77.8 COPD (chronic obstructive pulmonary disease) J44.9 COPD type: unspecified COPD Chronic pancreatitis K86.1 Pancreatitis type: unspecified pancreatitis type Insulin-requiring or dependent type II diabetes mellitus E11.9; Z79.4 Hypothyroidism (acquired) E03.9 Smoker F17.200 Abnormal finding on urinalysis R82.90 Positive blood culture R78.81 History of nephrostomy Hyponatremia E87.1 Constipation K59.00 Hyperphosphatemia E83.39 Chest pain R07.9 DVT prophylaxis Z29.9 Hyperkalemia E87.5 Hydronephrosis N13.30 Pleural effusion J90 Goals of care, counseling/discussion Z71.89 (1) Chronic pancreatitis Pancreatitis type: unspecified pancreatitis type Qualified Code(s): K86.1 - Other chronic pancreatitis (2) COPD (chronic obstructive pulmonary disease) COPD type: unspecified COPD Qualified Code(s): J44.9 - Chronic obstructive pulmonary disease, unspecified (3) LLL pneumonia Pneumonia type: due to unspecified organism Qualified Code(s): J18.9 - Pneumonia, unspecified organism
[2020-09-13] MEDS ORDERED: EPOETIN ALFA 10,000 UNITS/ML VIAL IV SCH (09:00)
--- NOTE | 2020-09-13 09:31 | Nephrology Progress Note ---
Date of Service September 13, 2020 Assessment & Plan Admission and Anticipated Discharge Date Admission Date: August 25, 2020 Subjective Chart reviewed. Patient declined cystoscopy this morning. He refused his dialysis treatment. Primary service has met w/ Mr. Morales and spoken with his by phone. Mr. Morales has expressed a desire to transition to comfort measures. His was in agreement. No further Nephrology evaluation indicated at this time. Will sign off. Please call if further assistance is needed Results & Data ([facility]) Vital Signs (Past 12 Hours) Vital Signs Temp Pulse Pulse Resp BP Pulse Ox 09/13/20 07:44 36.7 C 61 22 85/62 L 91 09/13/20 07:00 64 09/13/20 04:14 36.9 C 64 20 102/56 L 90 09/13/20 02:51 66 18 91 09/12/20 23:59 61 09/12/20 23:53 36.7 C 65 19 116/60 90 Coding Level of Care Code 19748 Subseq Hosp Care Lvl 1
--- NOTE | 2020-09-13 09:52 | Pulmonology Progress Note ---
Date of Service September 13, 2020 Assessment & Plan (1) Pleural effusion on left: This is a 74-year-old male admitted to the hospital 08/25/2020 because of shortness of breath. He was negative for coronavirus 2 weeks ago. 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 Consult was placed because of white out of left side of thorax. Patient had thoracentesis performed 09/04/2020 and again on 09/06/2020. Fluid was exudative per laboratory findings. Pathology on first sample from 09/04/2020 consistent with atypical cells. Second cytology sample with evidence of atypical cells, but no malignancy. Third cytology sample is pending. --Opacification of the left hemithorax From large complex pleural effusion given fibrillation appreciated in the effusion Status post thoracentesis 09/04/2020, removal of 2.2L dark yellow fluid. Exudative as per lights criteria Repeat thoracentesis 09/06/2020, removal of 900 mL melvin fluid. Again exudative, pH of 7.27 S/p pigtail catheter placement 09/09/2020 --> on Mist protocol 09/05/2020 Pleural fluid:- Protein 3.3, LDH 156, pH 7.64, glucose 108 09/05/2020 Serum:- Protein 6, LDH 211 09/06/2020: Protein 3.2, LDH 169, glucose 125, pH 7.27 09/06/2020: Protein 6.1, LDH 234 Follow-up culture --> no growth to date Given the history of obstructive kidney failure. Possibility of Urothorax is also there. Follow-up fluid urea Cytology from 09/05/2020 is positive for atypical cells. Repeat cytology 09/06/20 showed only inflammatory cells Plan: It appears that the patient is moving towards comfort measures only. I think this is appropriate. I did clamp the chest tube around 8:30 AM. We will repeat the chest x-ray in an hour and if no evidence of expanding pneumothorax, will discontinue the chest tube. Third cytology still pending. Please note the above document was generated using voice recognition software. It may contain grammatical, syntax or spelling errors.Any formal questions or concerns about the content, text or information contained within the body of this dictation should be directly addressed to the provider for clarification. (2) COPD (chronic obstructive pulmonary disease): COPD type: unspecified COPD Qualified Code(s): J44.9 - Chronic obstructive pulmonary disease, unspecified (3) Acute respiratory failure with hypoxia: (4) Pneumothorax: Admission and Anticipated Discharge Date Admission Date: August 25, 2020 Subjective Patient is very lethargic today. I discussed with the patient's hospitalist who indicated that family is wanting comfort care at this point. He had 750 mL out of the left chest tube in the last 24 hours. Review of Systems Review of Systems: All systems reviewed & are unremarkable except as noted in HPI & below Physical Exam Physical Exam: Constitutional: Very lethargic and weak. HEENT: EOMI, PERRLA Respiratory system: Decreased air entry on the left side, positive crackles bilateral lower lobes, no wheeze, no rhonchi CVS: S1-S2 positive Abdomen: Soft, nontender, nondistended, positive bowel sounds x4, obese Extremities: +2 pulses bilaterally radialis/ dorsalis pedis, no cyanosis, +1 edema bilateral lower extremity, right arm aVF Neuro: Awake alert oriented x3 Psych: Normal mood and affect G/U: No Tyler Positive left-sided chest tube, dressing in place Skin: no rashes, warm and dry Lymphatic: no cervical or axillary lymphadenopathy Results & Data Results & Data ([facility]) Vital Signs (Past 12 Hours) Vital Signs Temp Pulse Pulse Resp BP Pulse Ox 09/13/20 07:44 98.1 F 61 22 85/62 L 91 09/13/20 07:00 64 09/13/20 04:14 98.4 F 64 20 102/56 L 90 09/13/20 02:51 66 18 91 09/12/20 23:59 61 09/12/20 23:53 98.1 F 65 19 116/60 90 I reviewed the vital signs, labs and imaging PG Care Time/CCT Total # of Minutes Spent Total Time Spent with Patient: Total time spent is greater than 50% in coordination of care (as documented) at patient's floor/unit and/or counseling patient: Coding Level of Care Code 50667 Subseq Hosp Care Lvl 3 Diagnoses Pleural effusion on left J90 COPD (chronic obstructive pulmonary disease) J44.9 COPD type: unspecified COPD Acute respiratory failure with hypoxia J96.01 Pneumothorax J93.9
--- NOTE | 2020-09-13 10:50 | Death Pronouncement Note ---
Date of Service September 13, 2020 Pronouncement Note Admission Date Admission Date: August 25, 2020 Date and Time of Date of : 09/13/20 Time of : 10:25 PCOD Preliminary cause of : Uremia Contributing Factors (1) Acute respiratory failure with hypoxia: (2) Candidemia: (3) CKD (chronic kidney disease): (4) LLL pneumonia: (5) Facial droop: (6) Elevated troponin: (7) COPD (chronic obstructive pulmonary disease): (8) Chronic pancreatitis: (9) Insulin-requiring or dependent type II diabetes mellitus: (10) Hypothyroidism (acquired): (11) Smoker: (12) Abnormal finding on urinalysis: (13) Positive blood culture: (14) History of nephrostomy: (15) Hyponatremia: (16) Constipation: (17) Hyperphosphatemia: (18) Chest pain: (19) DVT prophylaxis: (20) Hyperkalemia: (21) Hydronephrosis: (22) Pleural effusion: (23) Goals of care, counseling/discussion: Hospital Course Hospital Course: see discharge summary Additional Data Confirmation of : no pulse, no respirations, no heart sounds and pupils fixed and dilated Family: at bedside Attending/PCP notified?: Yes Attending physician: Darrian Amin, DO Was code activated?: No Autopsy requested?: No medical claims examiner notified?: No Organ bank notified?: No Advance directives: No Coding Level of Care Code None Diagnoses Acute respiratory failure with hypoxia J96.01 Candidemia B37.7 CKD (chronic kidney disease) N18.9 LLL pneumonia J18.9 Pneumonia type: due to unspecified organism Facial droop R29.810 Elevated troponin R77.8 COPD (chronic obstructive pulmonary disease) J44.9 COPD type: unspecified COPD Chronic pancreatitis K86.1 Pancreatitis type: unspecified pancreatitis type Insulin-requiring or dependent type II diabetes mellitus E11.9; Z79.4 Hypothyroidism (acquired) E03.9 Smoker F17.200 Abnormal finding on urinalysis R82.90 Positive blood culture R78.81 History of nephrostomy Hyponatremia E87.1 Constipation K59.00 Hyperphosphatemia E83.39 Chest pain R07.9 DVT prophylaxis Z29.9 Hyperkalemia E87.5 Hydronephrosis N13.30 Pleural effusion J90 Goals of care, counseling/discussion Z71.89
--- NOTE | 2020-09-13 11:00 | Discharge Summary ---
Date of Service September 13, 2020 Admission HPI Per Admitting Provider 74-year-old male who presents emergency department complaining shortness of breath. Patient reports he became short of breath last evening. He reports any movement makes the shortness of breath worse however rest allows him to get better. The patient arrives in 6 L of oxygen placed by EMS. Patient was placed on BiPAP breathing. When I saw the patient he was without respiratory distress. He was transitioned to nasal cannula and had done well throughout his time in the emergency department. He was tested for short 2 weeks ago once again is negative this evening. Procalcitonin is elevated 4.89 there is some concern is a pulmonary infection with x-ray showing possible left basilar consolidation patient is also significantly hyper glycemic which would not be helped by steroids or administered for COPD exacerbation.. Principal Diagnosis Acute respiratory failure due to pleural effusion, pneumonia Discharge Exam no pulse, no heart tones, not breathing, no breath sounds, pupils fixed, unresponsive Discharge Data Allergies Allergy/AdvReac Type Severity Reaction Status Date / Time lisinopril Allergy Unknown Unverified 08/25/20 09:28 ASPIRIN (IN DOSES LARGER AdvReac Intermediate N/V Uncoded 08/25/20 09:28 THAN 81MG) Consultations 08/25/20 10:15 ED Decision to Admit Stat 08/28/20 12:48 Consult Case Management - Discharge Planning Routine 09/01/20 15:31 Consult Infectious Diseases Routine 09/03/20 15:22 Consult Anesthesiology Routine 09/03/20 15:37 Consult Palliative Care Routine 09/03/20 17:29 Consult Urology Routine 09/03/20 22:48 Consult Pulmonology Routine 09/05/20 14:26 Consult Anesthesiology Routine Procedures Performed Operation Date: 09/05/20 11:45 Actual Procedures p Echo Transesophageal - Jacinto Torres MD s Echo Doppler Complete - Jacinto Torres MD s Echo Color Flow - Jacinto Torres MD Operation Date: 09/13/20 07:15 <No data on this case meets the specified criteria> Ordered Studies 08/27/20 13:13 US renal/blad retro comp Routine 09/03/20 18:30 US point of care ultrasound Urgent 09/04/20 07:22 US point of care ultrasound Urgent 09/06/20 11:36 US point of care ultrasound Urgent 09/06/20 12:36 CT chest wo con Routine 09/09/20 07:52 US point of care ultrasound Urgent 09/10/20 19:32 CT head/brain wo con Stat Hospital Course (1) Acute respiratory failure with hypoxia: * Complete opacification of the left lung on CXR 09/02 - secondary to large complex pleural effusion * Pulm consulted - Thoracentesis for 2.2L on 09/04 -- EXUDATIVE process. protein 3.3, LDH 156, pH 7.64H, glucose 108. Serum protein 6, LDH 211 * Pleural urea pending given possible urothorax. pleural cr send-out. * Thoracentesis 09/06 also exudative in appearance and drained 900cc. (2.2L on 09/04) * Body fluid slide with atypical cells present, cannot exclude malignancy. Cytology pending --> Rare atypical cells present. I personally spoke with pathology who feels these atypical cells could be from infection/inflammation and not true malignancy * Decompensated in the overnight hours of 09/08- 6 was transferred to telemetry due to complete whiteout of the left lung, thoracentesis resulted without significant fluid production -> Mist protocol 09/10/20 with good results * 09/06 CT Chest w/o -- small right and moderate to large left pleural effusions. mild dependent subsegmental right basilar atelectasis with compressive atelectasis of the left upper lobe and lingula. Near complete consolidation /collapse of the left lower lobe. Small pericardial effusion with new mild stranding within the mediastinal fat and epicardium, likely related to fluid overload. 5 mm groundglass nodule of the right lung apex. * chest tube placement and MIST protocol -- 09/09 has had good output but has been painful- continues with output and clearing CXR 09/11/20 * Cough productive of clear sputum per patient, He completed 7 days with Zosyn on 09/01 breathing quickly deteriorated morning of 09/13/20 after vomiting all night became hypotensive he refused blood work, refused hemodialysis, his cystoscopy was cancelled long discussion with patient and then his over the phone he did not want any further dialysis, he said he was suffering he was changed to DNR patient peacefully with family at the bedside at 1025am (2) Candidemia: * 1 of four blood cultures growing domenico glabrata complex. * ID consulted - ALONDRA without vegetations noted * Repeat blood cultures 09/07 * Pulm recommending sensitivities due to increased resistances. Discussed with lab and they were sent to [facility] 09/05 * Pleural blood urea pending given possibility of urothorax. Also added pleural cr but is a send out as well and will take several days * Patient will need two weeks of caspofungin from last positive blood culture. 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 * Completed 7 days of Zosyn (5) Facial droop: This patient had a facial droop on the evening of 09/10 and stroke alert was called overhead, noncontrast CT scan showed no new changes MRI cannot be done due to pacemaker no further neurological symptoms (6) Elevated troponin: * No angina, did have 2 echos last admission( one that was ALONDRA) with preserved EF, continuing metoprolol. Resumed hydralazine and amlodipine as pressures had been increasing * Trop 0.074 on admission and essentially unchanged x2 after admission * Trop 12/29/19 at 0.094, likely chronically elevated in the setting of CKD IV * Trop unchanged on repeat. EKG unchanged. Pacemaker functioning. Pt also with small pericardial effusion on CT 09/06 * Change Nitropaste to isosorbide on 09/11 patient's had no further chest pain (7) COPD (chronic obstructive pulmonary disease): * Home symbicort, Spiriva * No further prednisone -- received 40 mg x 5 days (8) Chronic pancreatitis: * has no complaints of abd pain, will continue creon (9) Insulin-requiring or dependent type II diabetes mellitus: * Pt required iv insulin gtt initially but is now on subq insulin. Managed by pharmacy * A1c 6.6 (10) Hypothyroidism (acquired): * synthroid 88 mcg was recently increased to [facility]mcg by [facility], however states this was not started yet * Dose adjusted 08/27 * Continue 100mcg daily (11) Smoker: * nicotine patch discontinued (12) Abnormal finding on urinalysis: * 3+ leuk est, neg nitrites, yeast noted * Urine cx mixed skin nu - dc'd dapto (13) Positive blood culture: * As above (14) History of nephrostomy: * Removed 08/04 but with increasing urine drainage. Urology consulted - Does not recommend suturing closed. May upsize his ureteral stent later this week This was delayed at this point time his respiratory status makes him difficult to take to the operating room (15) Hyponatremia: * Resolved. Na 138 (16) Constipation: * Resolved (17) Hyperphosphatemia: * Sevelamer 800mg BID per nephrology. Improved on labs. * Continue to monitor (18) Chest pain: * Reported on morning of 09/06 wax/waning, sharp/stabbing. pain now seems musculasleletal * EKG with atrial paced rhythm with prolonged AV conduction, non-specific intraventricular block. Electronic atrial pacemaker has replaced electronic ventricular pacemaker and ventricular rate decreased by 83bpm * Troponin unchanged from 08/25 -- likely related to his CKD as well as pericardial effusion/volume overload * chest pain from chest tube at present (19) DVT prophylaxis: * Patient has refused heparin subcutaneously will use SCDs is a poor second choice given his multiple comorbidities and inflammatory issues Pt states that [facility] been working to get him approved for a [facility] for use when away from home PT/OT - recommending rehab but patient is refusing. Family not feeling that they would be able to take him home at this point but will continue to assess progress. Attempting to find some caregivers to come in for a few hours each day Mr. Morales has multiple issues at hand with severe deconditioning and poor nutritional status. His prognosis is poor at this point. Evaluated by palliative care 09/05 -- at that time he wanted to continue care today he elected to change to DNR, he did not want any further interventions or hemodialysis (20) Hyperkalemia: 5.3 today, patient refuses HD yesterday also refused Kayexalate due to sore buttocks refused labs this morning, suspect K was even higher (21) Hydronephrosis: ongoing issue, had nephrostomy tube placed, then on HD still unclear cause, planned for cystoscopy had been delayed due to multiple other issues cystoscopy cancelled, comfort measures (22) Pleural effusion: left sided, large, loculated exudative on initial thoracentesis and subsequent thoracentesis atypical cells initially, then just inflammatory cells, then atypical cells again, no definitive diagnosis again, having a diagnosis would be helpful for goals of care however, he prior to definitive diagnosis (23) Goals of care, counseling/discussion: discussed with him on 09/12 and 09/13, he stated that his primary goal is to just go home he said this is the longest he has been away from home in his life discussed complicated situation with ESRD, pleural effusion, candidemia, weakness/deconditioning, hypoxia discussed that we still don't have any answer for hydronephrosis and pleural effusion, looking into possible cancer his condition deteriorated morning of 09/13 after vomiting all night he was hypotensive, tachypneic he refused morning labs, HD cancelled, cystoscopy cancelled he said he wanted to peacefully, his and family were with him at the bedside at 1025am Total Time Total Time Spent Total Time Spent (In Minutes): 45 minutes Total Time Includes: Examination of the Patient, Communication With Other Providers and Other (goals of care talk with patient and his ) Discharge Plan Discharge Items Reason For Visit: ACUTE RESPIRATORY FAILURE WITH HYPOXIA Follow-up/Referrals: Alex Julien MD [Primary Care Provider] - Medications and DC Order Prescriptions: No Action levothyroxine 88 mcg Tablet 88 mcg PO QAM Qty: 0 RF: 0 grape seed extract 50 mg Capsule 100 mg PO QPM Qty: 0 RF: 0 gabapentin 300 mg Capsule 300 mg PO QAM Qty: 0 RF: 0 multivitamin with minerals [Men's One Daily] Tablet 1 tab PO DAILY Qty: 0 RF: 0 Creon 24,000-76,000 -120,000 unit Capsule,Delayed Release(Dr/Ec) 1 cap PO TIDM Qty: 0 RF: 0 atorvastatin [Lipitor] 40 mg Tablet 20 mg PO QAM Qty: 0 RF: 0 oxycodone-acetaminophen [Percocet] 5-325 mg Tablet 1 tab PO Q4H PRN (Reason: Pain) RF: 0 albuterol sulfate [Ventolin HFA] 90 mcg/actuation Hfa Aerosol Inhaler 2 puff INHALATION QID PRN (Reason: Shortness Of Breath) RF: 0 insulin asp prt-insulin aspart [Novolog Mix 70-30FlexPen U-100] 100 unit/mL (70-30) Insulin Pen 16 unit SUBCUT AMPM RF: 0 budesonide-formoterol [Symbicort] 160-4.5 mcg/actuation HFA aerosol inhaler 2 inh INHALATION HS PRN (Reason: Shortness Of Breath) RF: 0 acetaminophen 500 mg Tablet 500 - 1,000 mg PO Q6H PRN (Reason: Pain) RF: 0 cranberry 400 mg Capsule 400 mg PO DAILY RF: 0 cinnamon bark [Cinnamon] 500 mg Capsule 500 mg PO DAILY RF: 0 metoprolol tartrate 25 mg Tablet 25 mg PO BID RF: 0 hydralazine 10 mg Tablet 10 mg PO BID RF: 0 amlodipine 10 mg Tablet 10 mg PO QAM RF: 0 tamsulosin [Flomax] 0.4 mg Capsule 0.4 mg PO DAILY RF: 0 tiotropium bromide 2.5 mcg/actuation Mist 2 puff INHALATION DAILY RF: 0 Krames/Other Patient Handouts: Managing Type 2 Diabetes Admission Data Admit Date/Time: 08/25/20 10:35 Attending Provider: Darrian Amin Admit Provider: Brennan Metcalf Primary Care Provider: Alex Julien Other Providers: Ame Wilson ; Ciara Torres ; Dora Camejo ; Zari Ayon ; Nathaly Keller ; Radha Begum ; Elijah Frye ; Bin Baca ; Alex Ramirez ; Joseph Rojas ; Tiera Rojas ; Jesus Pepper ; Priscila Salcedo ; Joseph Wood ; Dayton Zaldivar ; Hernesto Vela ; Good Bae ; Renetta Singh ; Mir Chandler ; Nesha Billingsley ; Juanita Chandler ; Steven Stephens ; Aure Seals ; Joe Hernandez ; Mirella Worrell ; Tawnya Stanford ; Aure Lopez ; Joanie Amin ; Abdirahman Vela ; Sonia Valle ; Dai Lord ; Goldie Spaulding ; Kiya Clarke ; Carrington Clarke V ; Mingo Erwin ; Dora Barragan ; Brayan Chawla ; Abhijeet Abad ; Anni Atkins ; Irene Maurer ; Carrington Estrella ; Fito Singh ; Darrian Mayen ; Goldie Light ; Kary Larose ; Jamari Cannon ; Noah Bae ; Brittany Quintana ; Jacinto Crane ; Virgilio Dan ; Tao Baez ; Arnie Araujo ; Juanita Spencer ; Brennan Metcalf ; Roberth Garcia ; Kayode Corral ; Vance Morales I. ; Tyler Cornelius II ; Lisa Leger ; Mir Singh ; Janie Larose ; Jacinto Ordonez ; Luis Roche Coding Level of Care Code D/C Day Management >30 mins Diagnoses Acute respiratory failure with hypoxia J96.01 Candidemia B37.7 CKD (chronic kidney disease) N18.9 LLL pneumonia J18.9 Pneumonia type: due to unspecified organism Facial droop R29.810 Elevated troponin R77.8 COPD (chronic obstructive pulmonary disease) J44.9 COPD type: unspecified COPD Chronic pancreatitis K86.1 Pancreatitis type: unspecified pancreatitis type Insulin-requiring or dependent type II diabetes mellitus E11.9; Z79.4 Hypothyroidism (acquired) E03.9 Smoker F17.200 Abnormal finding on urinalysis R82.90 Positive blood culture R78.81 History of nephrostomy Hyponatremia E87.1 Constipation K59.00 Hyperphosphatemia E83.39 Chest pain R07.9 DVT prophylaxis Z29.9 Hyperkalemia E87.5 Hydronephrosis N13.30 Pleural effusion J90 Goals of care, counseling/discussion Z71.89
== END 2020-09-13 11:50 | disposition expired | DRG 193 ==
LOC: ED 08:18 → SUATTDRO 10:35 → 2S 10:35 → 3W 08-28 18:10 → 2E 09-09 02:26